=== PATIENT | female | born 1955 | race Caucasian/White ===

== ENCOUNTER → 2024-08-10 | Outpatient (BNVA) | payer MEDICARE, MEDICAID, SELFPAY | END | disposition home or self-care (01) | PROVIDERS: PCP Family Medicine; Referring Provider Family Medicine; Visit Provider Urology | DX: N31.9 Neuromuscular dysfunction of bladder, unspecified (principal); Q90.9 Down syndrome, unspecified; Z99.3 Dependence on wheelchair; Z87.440 Personal history of urinary (tract) infections; E78.00 Pure hypercholesterolemia, unspecified | CPT/HCPCS: 99212; G0463 ==

== ENCOUNTER 2025-03-12 15:38 | Inpatient (IN) | payer MEDICARE, MEDICAID, SELFPAY ==
[2025-03-12 15:39] VITALS: BP 126/64; PULSE 80; RESP 17; TEMP 37.5; O2SAT 92
[2025-03-12 15:55] VITALS: BMI 18.8
--- NOTE | 2025-03-12 15:55 | PC.NURSE ---
SENT FROM RESIDENTIAL HALF-WAY DUE TO BEING MORE LETHARGIC THAN NORMAL TODAY AND ON DAY 5 OF UTI TREATMENT
[2025-03-12 18:15] VITALS: BP 97/63; PULSE 74; RESP 18; TEMP 37.3; O2SAT 95
--- NOTE | 2025-03-12 18:22 | XR_ITS ---
Examination: AP chest single view Technique 1 portable sitting AP chest single view Date and time: March 12, 2025 1837 hours Comparison March 16, 2024 INDICATIONS: Chest pain today. FINDINGS: Pneumonia left mid and lower lung zone Normal heart size Ectatic thoracic aorta Prominent osteopenia IMPRESSION: Left mid and lower lung zone pneumonia
--- NOTE | 2025-03-12 18:22 | EKG_ITS ---
[facility] Test Date: 2025-03-12 Pat Name: DYLAN PRICE Department: Room: - Gender: Female Humanities Coordinator: : 1955 Requested By: Beba Serrano Order Number: [id number] Reading MD: Beba Serrano Measurements Intervals [place] Rate: 74 P: 35 FL: 128 QRS: 33 QRSD: 82 T: 30 QT: 393 QTc: 437 Interpretive Statements SINUS RHYTHM Compared to ECG 03/14/2024 16:22:47 Sinus bradycardia no longer present /store/S0/[id number].pdf
--- NOTE | 2025-03-12 18:53 | PD.EDADULT ---
ED General RME/HPI General Chief complaint: General Adult/Misc Complain Stated complaint: LOW BLOOD PRESSURE Time Seen by Provider: 03/12/25 18:21 Arrival date/time: 03/12/25 15:38 RME / HPI RME / HPI narrative: Dr. Hayes?s Main ED Evaluation: 69yo female with a history of Down syndrome, asthma, hypothyroidism, seizures [facility] presents to the ED for a chief complaint of low blood pressure. Caregiver states the patient has been on Cipro for a UTI for the last 5 days, reporting the patient started being more lethargic than normal today. They reported an associated cough. They noted her blood pressure to be low, so they called 911 to bring her in for evaluation. Caregiver denies any fever, chills, vomiting or any other associated symptoms. NKA. Related Data Home Medications ?Medication ?Instructions ?Recorded ?Confirmed aspirin 81 mg chewable tablet 81 mg PO DAILY Elevated Lipids 09/23/23 08/10/24 calcium 600 mg (as 1 tab PO BID 09/23/23 08/10/24 carbonate)-vitamin D3 10 mcg (400 unit) tablet docusate sodium 100 mg capsule 100 mg PO BID Constipation 09/23/23 08/10/24 levothyroxine 75 mcg tablet 75 mcg PO DAILY 09/23/23 08/10/24 loratadine 10 mg tablet 10 mg PO DAILY 09/23/23 08/10/24 montelukast 10 mg tablet 10 mg PO DAILY 09/23/23 08/10/24 quetiapine 100 mg tablet 100 mg PO HS 09/23/23 08/10/24 simvastatin 20 mg tablet 20 mg PO QPM 09/23/23 08/10/24 cenobamate 50 mg tablet (Xcopri) 50 mg PO QDAY 12/04/23 08/10/24 cranberry extract 500 mg capsule 500 mg PO QDAY 12/04/23 08/10/24 (Cranberry Concentrate) levetiracetam 500 mg 2,000 mg PO QDAY 03/14/24 08/10/24 tablet,extended release 24 hr (Keppra XR) methenamine hippurate 1 gram 1 g PO QDAY 08/10/24 08/10/24 tablet (Hiprex) Allergies Allergy/AdvReac Type Severity Reaction Status Date / Time No Known Allergies Allergy Unverified 03/12/25 16:06 Review of Systems Review of Systems Systems Reviewed: All systems reviewed, normal except as documented ED Exam Narrative Physical exam: GENERAL APPEARANCE: awake, alert, is drooling, well-developed, well-nourished, no acute distress VITALS: All vitals were reviewed and the pulse ox is 95% on 2L/NC, which is abnormal according to my interpretation. HEENT: Normocephalic, atraumatic; pupils equal, round, reactive to light; EOMI; mucous membranes pink, moist; oropharynx clear NECK: Supple LUNGS: CTABL; no wheezes, no rales, no rhonchi HEART: Regular rate, regular rhythm; normal S1, S2; no murmurs ABDOMEN: non distended; normal BS; soft, no tenderness, no guarding, no rebound; no masses, no organomegaly, no hernia BACK: no CVA tenderness EXTREMITIES: atraumatic; no edema NEUROLOGIC: awake; alert; cranial nerves II-XII grossly intact; no focal sensory or motor deficits PSYCHIATRIC: appropriate mood and affect SKIN: warm, dry, normal color; no rashes Course Course Course Narrative: CXR is ordered for determining the etiology of lethargy. Quality Measures none Orders Category Date Time Status Magnetic Doctor NOW Care 03/12/25 18:22 Active EKG (ED ONLY) *Do not use* NOW Care 03/12/25 18:22 Completed EKG (ED Only) Stat Exams 03/12/25 18:22 Draft XR chest 1V portable Stat Exams 03/12/25 18:22 Completed B-Type Natriuretic Peptide Stat Lab 03/12/25 20:24 Completed Blood Culture (Lab) Stat Lab 03/12/25 20:24 Received CBC Stat Lab 03/12/25 20:24 Completed Comprehensive Metabolic Panel Stat Lab 03/12/25 20:24 Completed Lactate (Lactic Acid) Stat Lab 03/12/25 20:24 Completed Lactic Acid, 3 HR Stat Lab 03/12/25 23:29 Ordered Lipase Stat Lab 03/12/25 20:24 Completed Magnesium Stat Lab 03/12/25 20:24 Completed Procalcitonin Stat Lab 03/12/25 20:24 Completed Troponin I Stat Lab 03/12/25 20:24 Completed UA, C/S IF [Urinalysis, C/S if Indicated] Stat Lab 03/12/25 20:23 Completed Urine Culture Stat Lab 03/12/25 20:23 Received cefTRIAXone/D5w 1gm IV premix [Rocephin/D5w 1gm IV Med 03/12/25 21:15 Discontinued premix] 1 g in 50 ml IV X1 Vital Signs Vital signs: Vital Signs Temperature 99.5 F 03/12/25 15:39 Pulse Rate 80 03/12/25 15:39 Respiratory Rate 17 03/12/25 15:39 Blood Pressure 126/64 03/12/25 15:39 Pulse Oximetry (%) 92 L 03/12/25 15:39 Oxygen Delivery Method Room Air 03/12/25 15:39 Discharge Plan Plan Patient Disposition: Admit Acute Care w/in Hospital Prescriptions/Referrals Prescriptions/Med Rec: No Action methenamine hippurate [Hiprex] 1 gram tablet 1 g PO QDAY quetiapine 100 mg tablet 100 mg PO HS levothyroxine 75 mcg tablet 75 mcg PO DAILY simvastatin 20 mg tablet 20 mg PO QPM docusate sodium 100 mg capsule 100 mg PO BID aspirin 81 mg tablet,chewable 81 mg PO DAILY montelukast 10 mg tablet 10 mg PO DAILY loratadine 10 mg tablet 10 mg PO DAILY calcium carbonate-vitamin D3 600 mg-10 mcg (400 unit) tablet 1 tab PO BID levetiracetam [Keppra XR] 500 mg Tablet Extended Release 24 Hr 2,000 mg PO QDAY cranberry extract [Cranberry Concentrate] 500 mg Capsule 500 mg PO QDAY Rx Instructions: administer with meals Xcopri 50 mg tablet 50 mg PO QDAY Referrals: No Primary/Family,Physician [Primary Care Provider] - In 1 week Problem List Clinical Impression: Pneumonia Patient/Caregiver Discharge Instructions Print Language: Kinyarwanda Stand Alone Forms: Laurie Award Info., Patient Portal Info Letter MDM Narrative MDM hospital course: Scribe Attestation: 03/12/25 - Kanika Marshall am scribing for and in the presence of Dr. Hayes. 2238: Patient's oxygen saturation is 88% with a good waveform. 2L/NC placed. Will consult an admission to the hospitalist, as the patient is normally not on oxygen at home. 2338: Discussed case with the resident physician, attending Dr. Fernández from Hospitalist service regarding admission. Discussed patients ED course, exam findings, labs, and radiology results. The Hospitalist agrees to accept the patient for admission. Clinical Information Provided by other: Information provided by the patient's caregiver Medical Records Reviewed [facility] (Per chart review, patient was admitted here on 03/14/24 for accidental overdose.) Meds/Rx Considered, not Ordered None Labs/Rad/Tests considered, not Ordered None Chronic Illness/Social Conditions Add or document further as needed: History of asthma, hypothyroidism, seizures, Down syndrome EKG EKG Interpretation narrative: EKG done at 1846, NSR, rate of 74, normal axis, normal intervals, no acute ST-T changes, according to my interpretation. Lab Interpretation Labs: interpreted by md Lab(s) interpretation(s): WBC 17.3, Lactic Acid 2.6, CMP normal, Troponin normal, BNP normal, Procalcitonin normal. Imaging Imaging interpretation: interpreted by md Radiology reports / interpretation(s): [facility] Report Signed Patient: DYLAN PRICE. Record#: [id number] Birthdate: 1955 Age/Sex: 69 / F Location: [facility] Attending Dr: Ordering Physician: Beba Hayes MD Date of Service: 03/12/25 Procedure(s): XR chest 1V portable Accession Number(s): [id number] cc: Jose Manuel Croft MD; NO PRIMARY/FAMILY,PHYSICIAN; Beba Hayes MD~ Examination: AP chest single view Technique 1 portable sitting AP chest single view Date and time: March 12, 2025 1837 hours Comparison March 16, 2024 INDICATIONS: Chest pain today. FINDINGS: Pneumonia left mid and lower lung zone Normal heart size Ectatic thoracic aorta Prominent osteopenia IMPRESSION: Left mid and lower lung zone pneumonia Dictated By: Jose Manuel Croft MD Signed By: <Electronically signed by Jose Manuel Croft MD in OV> 03/12/25 1852 Medication Administration(s) Medication Administration History Discontinued Medications Ceftriaxone Sodium/Dextrose (Rocephin/D5w 1gm Iv Premix) 1 g in 50 mls @ 100 mls/hr IV X1 ONE Stop: 03/12/25 21:44 Last Infusion: 03/12/25 22:23 Dose: Infused Documented By: Admin: 03/12/25 21:22 Dose: 100 mls/hr Documented By: CB see above Diagnosis Differential diagnosis: bronchitis, pneumonia, PE, pneumothorax Most likely dx, and/or detailed dx discussion: pneumonia Dispositon Disposition: Admit
[2025-03-12 19:15] VITALS: PULSE 76
[2025-03-12 20:33] LABS: Lactate (Lactic Acid) 2.6 mMol/L (0.4-2.0)
[2025-03-12 20:33] LABS: Collection Type, Urine Catheter
[2025-03-12 20:39] LABS: Basophils # (Auto) 0.1 Thou/mm3 (0.0-0.2); Basophils % (Auto) 1 % (0-2.5); Eosinophils % (Auto) 0 % (0-10); Hematocrit 41.8 % (36.0-46.0); Hemoglobin 15.2 g/dL (12.0-16.0); Immature Granulocytes % (Auto) 1 % (0-0); Immature Granulocytes Auto 0.09 Thou/mm3 (0.00-0.00); Lymphocytes # (Auto) 2.2 Thou/mm3 (1.0-4.8); Lymphocytes % (Auto) 12 % (10-50); Mean Corpuscular HGB Conc 36.4 g/dl (31.0-37.0); Mean Corpuscular Volume 91 fL (80-100); Monocytes # (Auto) 1.1 Thou/mm3 (0.0-0.8); Monocytes % (Auto) 6 % (0-12); Neutrophils # (Auto) 13.9 Thou/mm3 (1.8-7.7); Neutrophils % (Auto) 80 % (37-80); Nucleated Red Blood Cell % 0 /100 WBC (0); Platelet Count 250 Thou/mm3 (140-440); Red Blood Count 4.61 Miln/mm3 (4.00-5.20); White Blood Count 17.3 Thou/mm3 (3.6-11.0)
[2025-03-12 20:56] LABS: Bacteria,Urine Rare; Bilirubin,Urine Negative (Negative); Blood,Urine Negative (Negative); Clarity,Urine Clear (Clear/Hazy); Color,Urine Lt-Yellow (Lt Yel-Yel); Culture Indicated,Urine Not Indicated; Glucose, Urine Negative (Negative); Ketones,Urine Negative (Negative); Leukocyte Esterase,Urine Negative (Negative); Nitrite,Urine Negative (Negative); Protein,Urine Negative (Neg - Trace); RBC,Urine 1 /hpf (0-3); Specific Gravity,Urine 1.011 (1.001-1.035); Squamous Epithelial Cell,Urine < 1 /hpf (0-5); Urobilinogen,Urine Negative mg/dL (0.0-1.0); WBC,Urine 6 /hpf (0-5)
[2025-03-12 21:12] LABS: B-Type Natriuretic Peptide 89 pg/mL (0-100)
[2025-03-12 21:17] LABS: Alanine Aminotransferase 18 U/L (10-49); Albumin, Serum 3.8 gm/dL (3.4-4.8); Albumin/Globulin Ratio 1.5 (1.2-2.2); Alkaline Phosphatase 145 U/L (46-116); Anion Gap 11 (7-16); BUN/Creatinine Ratio 12 Ratio (12-20); Bilirubin,Total 0.3 mg/dL (0.3-1.2); Blood Urea Nitrogen 12 mg/dL (9-23); Calcium 8.4 mg/dL (8.3-10.6); Calcium (Corrected) 8.6 mg/dL (8.5-10.1); Carbon Dioxide 26.8 mMol/L (20.0-31.0); Chloride 98 mMol/L (98-107); Estimated Creatinine Clearance 39.1 mL/min (>60); Globulin 2.6 gm/dL (2.3-3.5); Glucose 133 mg/dL (74-106); Lipase 25 U/L (12-53); Magnesium 1.9 mg/dL (1.6-2.6); Osmolality,Calculated 273 (275-295); Potassium 4.1 mMol/L (3.4-5.1); Procalcitonin 0.14 ng/ml (0.0-0.49); Sodium 136 mMol/L (136-145); Total Protein 6.4 gm/dL (5.7-8.2); Troponin I < 0.020 ng/mL (0.0-0.045); eGFR > 60 See Note
[2025-03-12] MEDS: cefTRIAXone/D5w 1gm IV premix 1 G/50 ML BAG IV (21:22)
[2025-03-12 23:29] LABS: Reflex Lactate? Y
[2025-03-12 23:31] VITALS: BP 89/50; PULSE 79; RESP 18; TEMP 36.9; O2SAT 88
[2025-03-13] VITALS (14 sets, daily range): BP systolic 100–137; BP diastolic 57–92; PULSE 61–96; RESP 13–20; TEMP 36–36.8; O2SAT 92–100; BMI 19.2
--- NOTE | 2025-03-13 00:16 | ESHP_ITS ---
<Statement entered by Norma Fernández MD - 03/23/25 14:58> I reviewed above note and agree with findings and plans. I have also personally examined the patient with medicine team and went over assessment and plan with medical team including real estate intern and resident physician. Documentation for date of: 03/13/25 HPI History of Present Illness Chief complaint: phlegm, chills, low O2 History of present illness: 69-year-old female with past medical history of Down syndrome, asthma, hypothyroidism, and seizure disorder was admitted to the hospital on 03/13/2025 after come to the ED with complaints of lethargy, phlegm production, chills, and low O2. Patient comes from a detention. Patient was nonverbal on assessment therefore most of the history was taken from chart review and detention barback was also contacted to provide more history. halfway barback/caregiver stated that patient has been having some phlegm which did not have any blood, having chills, and that the highest temperature recorded was 99.5. He also stated that recently patient had a UTI and was treated with antibiotics. He stated that he decided to take the patient to the ER as her blood pressure was kind low and her O2 they could not measure it therefore he decided to bring the patient to the ER. He states that the patient at baseline his minimally verbal to some things and able to follow some commands. On my assessment patient was nonverbal and was not following commands. ED course: Initially came in afebrile and normotensive, but hypoxic. Initial labs showed leukocytosis, lactic acidosis, and UA showed bacteria. Initial imaging included EKG which showed sinus rhythm. Chest x-ray that shows some left mid and lower lobe pneumonia. PMH: As above Review of Systems Review of Systems ROS Unobtainable: unobtainable due to medical condition Past Medical History Past Medical History NEUROLOGIC: Positive Neurological Disorders and Seizures CARDIAC: Positive Hypercholesterolemia RESPIRATORY: Positive Asthma (has covid) ENDOCRINE: Positive Hyperthyroidism and Hypothyroidism OTHER HISTORY: Positive Hospitalization and Down Syndrome Family History FAMILY HISTORY: Negative Family Cardiac Disorders Surgical History SURGICAL: Negative Cardiac Surgery, Endocrine Surgery, Ear Surgery, Abdominal Surgery, Nephrectomy, Joint Replacement, Mastectomy or Vasectomy Social History SOCIAL: None SMOKING STATUS: Never smoker Exam Vital Signs Temp Pulse Resp BP Pulse Ox O2 Del Method O2 Flow Rate 98.5 F 79 18 89/50 L 88 L Room Air 2 03/12/25 23:31 03/12/25 23:31 03/12/25 23:31 03/12/25 23:31 03/12/25 23:31 03/12/25 23:31 03/12/25 18:15 Narrative Exam General: AO x 0, nonverbal, ill-appearing Eyes: PERRL, EOMI. Anicteric, vision grossly intact. Ears: No visible ear discharge, Hearing grossly intact. Nose: No visible nasal discharge. Mouth/Throat: Moist mucous membranes, no redness, no lesions. Neck: Neck supple, non-tender, no cervical lymphadenopathy. Lungs: Rhonchi bilaterally with upper airway congestion appreciated. Cardio: Normal S1/S2, regular rhythm, no murmurs, no JVD Abdomen: Soft, non-tender, no palpable masses, peristalsis present, no guarding or rebound. Extremities: Symmetrical, no significant deformities, no peripheral edema , non-tender, peripheral pulses presents. Some mild discoloration of upper extremity digits and lower extremity toes Skin: No rashes, no lesions, warm to touch. Neuro: Not able to follow commands and nonverbal, was moving all extremities Results: Labs 03/12/25 20:24 03/12/25 20:24 Labs: Short CBC 03/12/25 Range/Units 20:24 WBC 17.3 H (3.6-11.0) Thou/mm3 Hgb 15.2 (12.0-16.0) g/dL Hct 41.8 (36.0-46.0) % Plt Count 250 (140-440) Thou/mm3 BMP 03/12/25 20:24 Sodium 136 Potassium 4.1 Chloride 98 Carbon Dioxide 26.8 BUN 12 Creatinine 1.0 Glucose 133 H Calcium 8.4 Cardiac Enzymes 03/12/25 Range/Units 20:24 Troponin I < 0.020 (0.0-0.045) ng/mL Liver Function 03/12/25 Range/Units 20:24 Total Bilirubin 0.3 (0.3-1.2) mg/dL ALT 18 (10-49) U/L Alkaline Phosphatase 145 H (46-116) U/L Albumin 3.8 (3.4-4.8) gm/dL Urine 03/12/25 Range/Units 20:23 Urine Color Lt-Yellow (Lt Yel-Yel) Urine Clarity Clear (Clear/Hazy) Urine pH 6.0 (5.0-7.0) Ur Specific [place] 1.011 (1.001-1.035) Urine Protein Negative (Neg - Trace) Urine Glucose (UA) Negative (Negative) Quality Measures Quality Measures none Advance care planning discussed with:: patient and other (detention barback/caregiver) Medications Home Medications and Allergies Home Medications ?Medication ?Instructions ?Recorded ?Confirmed ?Type aspirin 81 mg chewable tablet 81 mg PO DAILY Elevated Lipids 09/23/23 08/10/24 History calcium 600 mg (as 1 tab PO BID 09/23/23 History carbonate)-vitamin D3 10 mcg (400 unit) tablet docusate sodium 100 mg capsule 100 mg PO BID Constipat ion 09/23/23 08/10/24 History levothyroxine 75 mcg tablet 75 mcg PO DAILY 09/23/23 1 10/10/23 History loratadine 10 mg tablet 10 mg PO DAILY 09/23/2304/26 History montelukast 10 mg tablet 10 mg PO DAILY 09/23/2304/26 History quetiapine 100 mg tablet 100 mg PO HS 09/23/23 History simvastatin 20 mg tablet 20 mg PO QPM 09/23/23 History cenobamate 50 mg tablet (Xcopri) 50 mg PO QDAY 4 08/10/24 History cranberry extract 500 mg capsule 500 mg PO QDAY 08/10/24 History (Cranberry Concentrate) levetiracetam 500 mg 2,000 mg PO QDAY 03/14/24 History tablet,extended release 24 hr (Keppra XR) methenamine hippurate 1 gram 1 g PO QDAY 08/10/2404/26 History tablet (Hiprex) Allergies Allergy/AdvReac Type Severity Reaction Status Date / Time No Known Allergies Allergy Unverified 03/12/25 16:06 Visit Medications Acetaminophen (Acetaminophen 325 Mg Tablet) 650 mg PO Q6H PRN PRN Reason: pain and Fever >100.4 Stop: 04/12/25 00:08 Albuterol/Ipratropium (Albuterol/Ipratropium (Duoneb) Rt [place] 3 Ml Nebu) 3 ml INH Q6HRRT JERRY Stop: 04/12/25 00:59 Heparin Sodium (Porcine) (Heparin Sod Inj 5000 Unit/Ml Vial) 5,000 unit SC Q8HR JERRY Stop: 03/27/25 05:59 Azithromycin 500 mg/ Sodium (Chloride) 250 mls @ 250 mls/hr IV QDAY JERRY Stop: 03/20/25 00:12 Ceftriaxone Sodium 1 gm/ (Sodium Chloride) 50 mls @ 100 mls/hr IV QDAY JERRY Stop: 03/20/25 08:59 Sodium Chloride (Ns) 1,000 mls @ 999 mls/hr IV .Q1H1M ONE Stop: 03/13/25 01:15 Ondansetron HCl (Ondansetron Inj 2 Mg/Ml Inj 2 Ml) 4 mg IVP Q6H PRN; Protocol PRN Reason: NAUSEA OR VOMITING Stop: 04/12/25 00:08 Sodium Chloride (Sodium Chloride Rt 10% 15 Ml Nebu) 5 ml INH X1 ONE Stop: 03/13/25 00:10 Discontinued Medications Ceftriaxone Sodium/Dextrose (Rocephin/D5w 1gm Iv Premix) 1 g in 50 mls @ 100 mls/hr IV X1 ONE Stop: 03/12/25 21:44 Last Infusion: 03/12/25 22:23 Dose: Infused Assessment & Plan Plan 69-year-old female with past medical history of Down syndrome, asthma, hypothyroidism, and seizure disorder was admitted to the hospital on 03/13/2025 for acute cephalopathy and acute hypoxic respiratory failure likely secondary to community-acquired pneumonia. #Acute encephalopathy #Acute hypoxic respiratory failure #Community-acquired pneumonia #Lactic acidosis #Hx of asthma Patient came in from detention and barback/caregiver stated that she has been having some phlegm and chills recently and that today they could not get a O2 reading on her as she has been more lethargic. Chest x-ray that showed left pneumonia WBC 17.3 Procalcitonin negative Lactic acid 2.6 and down trended to 1.6 No wheezing on auscultation Plan: Azithromycin and Rocephin (03/13/2025?) Sputum cultures and blood cultures ordered Bedside COVID and influenza ordered RSV ordered DuoNebs ordered O2 as needed Will continue to monitor Chronic diseases: #Down syndrome #Hypothyroidism #Seizures Seizures precautions ordered TSH ordered for morning labs Will restart medications once med reconciliation is done. Disposition: Patient admitted [facility], Abx for CAP. Diet: NPO GI prophylaxis: not indicated DVT prophylaxis: heparin sub cu Code: Full Case disclosed with Attending Dr. Jolene Aguirre PGY1 Disclaimer: Even though this this note was dictated by speech recognition and even though it was carefully revised there may still be minor errors in oysterman due to voice recognition software.
[2025-03-13 00:36] LABS: Lactic Acid, 3 HR 1.6 mMol/L (0.4-2.0)
[2025-03-13] MEDS: SODIUM CHLORIDE 0.9% 1000 ML 1,000 ML 999 ML IV (00:39)
[2025-03-13] MEDS: AZITHROMYCIN INJ 500 MG in SODIUM CHLORIDE 0.9% 250 ML 250 ML 250 MG IV ×2 (00:40→21:13)
[2025-03-13] MEDS: ALBUTEROL/IPRATROPIUM (Duoneb) RT SOL 3 ML NEBU INH ×4 (01:13→19:17)
[2025-03-13] MEDS: SODIUM CHLORIDE RT 10% 15 ML NEBU 5 ML INH (01:22)
[2025-03-13 05:02] LABS: Basophils # (Auto) 0.1 Thou/mm3 (0.0-0.2); Basophils % (Auto) 0 % (0-2.5); Eosinophils % (Auto) 0 % (0-10); Hematocrit 39.6 % (36.0-46.0); Hemoglobin 14.2 g/dL (12.0-16.0); Immature Granulocytes % (Auto) 1 % (0-0); Immature Granulocytes Auto 0.09 Thou/mm3 (0.00-0.00); Lymphocytes # (Auto) 1.7 Thou/mm3 (1.0-4.8); Lymphocytes % (Auto) 11 % (10-50); Mean Corpuscular HGB Conc 35.9 g/dl (31.0-37.0); Mean Corpuscular Hemoglobin 32.6 pg (25.0-35.0); Mean Corpuscular Volume 91 fL (80-100); Monocytes # (Auto) 0.7 Thou/mm3 (0.0-0.8); Monocytes % (Auto) 5 % (0-12); Neutrophils # (Auto) 13.3 Thou/mm3 (1.8-7.7); Neutrophils % (Auto) 84 % (37-80); Nucleated Red Blood Cell % 0 /100 WBC (0); Platelet Count 235 Thou/mm3 (140-440); RDW Standard Deviation 40.7 fL (36.4-46.3); Red Blood Count 4.35 Miln/mm3 (4.00-5.20); White Blood Count 15.9 Thou/mm3 (3.6-11.0)
[2025-03-13 05:28] LABS: Alanine Aminotransferase 15 U/L (10-49); Albumin, Serum 3.4 gm/dL (3.4-4.8); Albumin/Globulin Ratio 1.4 (1.2-2.2); Alkaline Phosphatase 127 U/L (46-116); Anion Gap 10 (7-16); BUN/Creatinine Ratio 11 Ratio (12-20); Bilirubin,Total 0.3 mg/dL (0.3-1.2); Blood Urea Nitrogen 9 mg/dL (9-23); Calcium 7.9 mg/dL (8.3-10.6); Calcium (Corrected) 8.4 mg/dL (8.5-10.1); Carbon Dioxide 27.7 mMol/L (20.0-31.0); Cardiac Risk Estimate 2.1 RATIO (3.7-5.6); Chloride 106 mMol/L (98-107); Cholesterol 126 mg/dL (132-200); Creatinine (Component) 0.8 mg/dL (0.6-1.3); Estimated Creatinine Clearance 49.6 mL/min (>60); Globulin 2.4 gm/dL (2.3-3.5); Glucose 120 mg/dL (74-106); HDL Cholesterol 59 mg/dL (40-60); LDL Cholesterol,Calculated 57 mg/dL (0-130); Magnesium 1.8 mg/dL (1.6-2.6); Osmolality,Calculated 286 (275-295); Potassium 3.9 mMol/L (3.4-5.1); Sodium 144 mMol/L (136-145); Thyroid Stimulating Hormone 1.33 uIU/mL (0.55-4.78); Total Protein 5.8 gm/dL (5.7-8.2); Triglycerides 49 mg/dL (30-150); eGFR > 60 See Note
[2025-03-13] MEDS: HEPARIN SOD INJ 5000 UNIT/ML VIAL SC ×3 (05:29→21:13)
[2025-03-13 05:34] LABS: Respiratory Syncytial Virus Ag Negative (Negative)
[2025-03-13] MEDS: CALCIUM CARBONATE 600 MG TABLET PO ×2 (09:09→20:06)
[2025-03-13] MEDS: DOCUSATE SOD 100 MG CAPSULE PO ×2 (09:09→20:07)
[2025-03-13] MEDS: LEVOTHYROXINE SODIUM 25 MCG TABLET 75 MCG PO (09:09)
[2025-03-13] MEDS: POLYETHYLENE GLYCOL 17 GM PACKET PO (09:09)
[2025-03-13] MEDS: levETIRAcetam 250 MG TABLET 1000 MG PO (09:10)
[2025-03-13] MEDS: CHOLECALCIFEROL (Vitamin D3) 400 IU TABLET PO ×2 (09:10→20:07)
--- NOTE | 2025-03-13 12:34 | PC.SS ---
Lillie Jensen is a 69 year old female admitted to [place] for AHRF< CAP. SS conducted over the phone contact with Guardian of Handicapped Manjinder Camahco [phone], as pt is Developmentally Delayed. Manjinder reports pt Is a resident of [facility]. Manjinder confirmed pt aligned with [facility], Neda Do [phone] is her care worker. Pt requires full assistance with ADLs. Pt is primarily wheelchair bund but can walk with assistance and a walker. Pharmacy of choice is [facility] on [address] in [place]. Manjinder reports they will provide transport at the time of DC, no matter the time of day. Pt PCP is Dr. Rosas. No further needs identified. SS will remain available for any additional needs. DC plan: [facility] DM: [facility] PCP: Alison Morrison
--- NOTE | 2025-03-13 14:42 | ESPR_ITS ---
<Statement entered by Stan Chavira MD - 03/14/25 00:13> Patient is a 69-year-old female with significant medical history for Down syndrome who was admitted overnight for acute encephalopathy secondary to UTI and pneumonia. Morning labs significant for downtrending of WBC, preliminary blood cultures 2 out of 2 grew GPC and patient was started on vancomycin. Repeat blood cultures were ordered, will consider TTE. I discussed with and supervised the procurement intern physician involved in the care of this patient. Patient assessment and plan was discussed with entire medicine team, including my attending. I agree with the assessment and plan as documented by procurement intern doctor. Patient care was discussed with my attending physician Dr. Sara Chavira, PGY-2 Documentation for date of: 03/13/25 Subjective Subjective Interval history: Patient is seen and examined at bedside Patient was admitted overnight in view of pneumonia. Patient has Down syndrome and cannot communicate Vitals are stable and patient is saturating around 95% on room air Labs showed WBC 15.9 Preliminary blood culture showed GPC for which patient was started on vancomycin Repeat blood cultures are sent today Exam Vital Signs Temp Pulse Resp BP Pulse Ox O2 Del Method O2 Flow Rate 98.3 F 89 18 100/62 98 Nasal Cannula 2 03/13/25 12:00 03/13/25 14:04 03/13/25 14:04 03/13/25 12:00 03/13/25 14:04 03/13/25 12:00 03/13/25 14:04 Narrative Exam General: Awake. HEENT: Normocephalic, atraumatic, mucous membranes moist. Heart: Regular rate and rhythm, no murmurs. Lungs: Clear to auscultation with no wheezing or crackles. Abdomen: Soft, nondistended, nontender, positive bowel sounds. ?No guarding or rebound tenderness. Neurologic: Alert and oriented x3, no gross neurological deficit, and patient able to move all 4 extremities. Extremities: No edema. Skin: No rash or ecchymoses. Objective Labs 03/14/25 05:18 03/14/25 05:18 Labs: Laboratory Results - last 24 hr 03/12/25 03/12/25 03/13/25 20:23 20:24 00:28 WBC 17.3 H RBC 4.61 Hgb 15.2 Hct 41.8 MCV 91 MCH 33.0 MCHC 36.4 RDW Std Deviation 40.0 Plt Count 250 Neut % (Auto) 80 Lymph % (Auto) 12 [place] % (Auto) 6 Eos % (Auto) 0 Baso % (Auto) 1 Neut # (Auto) 13.9 H Lymph # (Auto) 2.2 [place] # (Auto) 1.1 H Eos # (Auto) 0.0 Baso # (Auto) 0.1 Immature Gran # (Auto) 0.09 H Absolute Nucleated RBC 0.00 Immature Gran % 1 H Nucleated RBC % 0 Sodium 136 Potassium 4.1 Chloride 98 Carbon Dioxide 26.8 Anion Gap 11 BUN 12 Creatinine 1.0 Estim Creat Clear Calc 39.1 L eGFR > 60 BUN/Creatinine Ratio 12 Glucose 133 H Calculated Osmolality 273 L Lactic Acid 2.6 H 1.6 Calcium 8.4 Corrected Calcium 8.6 Magnesium 1.9 Total Bilirubin 0.3 ALT 18 Alkaline Phosphatase 145 H Troponin I < 0.020 B-Natriuretic Peptide 89 Total Protein 6.4 Albumin 3.8 Globulin 2.6 Albumin/Globulin Ratio 1.5 Triglycerides Cholesterol LDL Cholesterol, Calc HDL Cholesterol Cholesterol/HDL Ratio Lipase 25 Procalcitonin 0.14 TSH Ur Collection Type Catheter Urine Color Lt-Yellow Urine Clarity Clear Urine pH 6.0 Ur Specific [place] 1.011 Urine Protein Negative Urine Glucose (UA) Negative Urine Ketones Negative Urine Blood Negative Urine Nitrite Negative Urine Bilirubin Negative Urine Urobilinogen (Auto) Negative Ur Leukocyte Esterase Negative Urine RBC 1 Urine WBC 6 H Ur Squamous Epith Cells < 1 Urine Bacteria Rare Ur Culture Indicated? Not Indicated RSV Rapid 03/13/25 03/13/25 04:15 04:25 WBC 15.9 H RBC 4.35 Hgb 14.2 Hct 39.6 MCV 91 MCH 32.6 MCHC 35.9 RDW Std Deviation 40.7 Plt Count 235 Neut % (Auto) 84 H Lymph % (Auto) 11 [place] % (Auto) 5 Eos % (Auto) 0 Baso % (Auto) 0 Neut # (Auto) 13.3 H Lymph # (Auto) 1.7 [place] # (Auto) 0.7 Eos # (Auto) 0.0 Baso # (Auto) 0.1 Immature Gran # (Auto) 0.09 H Absolute Nucleated RBC 0.00 Immature Gran % 1 H Nucleated RBC % 0 Sodium 144 Potassium 3.9 Chloride 106 Carbon Dioxide 27.7 Anion Gap 10 BUN 9 Creatinine 0.8 Estim Creat Clear Calc 49.6 L eGFR > 60 BUN/Creatinine Ratio 11 L Glucose 120 H Calculated Osmolality 286 Lactic Acid Calcium 7.9 L Corrected Calcium 8.4 L Magnesium 1.8 Total Bilirubin 0.3 ALT 15 Alkaline Phosphatase 127 H Troponin I B-Natriuretic Peptide Total Protein 5.8 Albumin 3.4 Globulin 2.4 Albumin/Globulin Ratio 1.4 Triglycerides 49 Cholesterol 126 L LDL Cholesterol, Calc 57 HDL Cholesterol 59 Cholesterol/HDL Ratio 2.1 L Lipase Procalcitonin TSH 1.33 Ur Collection Type Urine Color Urine Clarity Urine pH Ur Specific [place] Urine Protein Urine Glucose (UA) Urine Ketones Urine Blood Urine Nitrite Urine Bilirubin Urine Urobilinogen (Auto) Ur Leukocyte Esterase Urine RBC Urine WBC Ur Squamous Epith Cells Urine Bacteria Ur Culture Indicated? RSV Rapid Negative Quality Measures Quality Measures none Advance care planning discussed with:: patient Assessment & Plan Assessment Current Active Medications: Generic Name Dose Route Start Last Admin Trade Name Freq PRN Reason Stop Dose Admin Acetaminophen 650 mg 03/13/25 00:09 Acetaminophen 325 Mg Tablet PO 04/12/25 00:08 Q6H PRN pain and Fever >100.4 Albuterol/Ipratropium 3 ml 03/13/25 01:00 03/13/25 13:59 Albuterol/Ipratropium (Duoneb) Rt [place] 3 Ml Nebu INH 04/12/25 00:59 3 ml Q6HRRT JERRY Administration Calcium Carbonate 600 mg 03/13/25 09:00 03/13/25 09:09 Calcium Carbonate 600 Mg Tablet PO 04/12/25 08:59 600 mg BID JERRY Administration Docusate Sodium 100 mg 03/13/25 09:00 03/13/25 09:09 Docusate Sod 100 Mg Capsule PO 04/12/25 08:59 100 mg BID JERRY Administration Protocol Heparin Sodium (Porcine) 5,000 unit 03/13/25 06:00 03/13/25 13:36 Heparin Sod Inj 5000 Unit/Ml Vial SC 03/27/25 05:59 5,000 unit Q8HR JERRY Administration Ceftriaxone Sodium/Dextrose 1 gm in 50 mls @ 100 mls/hr 03/13/25 21:00 Rocephin/D5w 1gm Iv Premix IV 03/20/25 20:59 HS JERRY Azithromycin 500 mg/ Sodium 250 mls @ 250 mls/hr 03/13/25 21:00 Chloride IV 03/20/25 20:59 HS JERRY Levetiracetam 1,000 mg 03/13/25 09:00 03/13/25 09:10 Levetiracetam 250 Mg Tablet PO 04/12/25 08:59 1,000 mg QDAY JERRY Administration Levetiracetam 1,500 mg 03/13/25 21:00 Levetiracetam 250 Mg Tablet PO 04/12/25 20:59 HS JERRY Levothyroxine Sodium 75 mcg 03/13/25 09:00 03/13/25 09:09 Levothyroxine Sodium 25 Mcg Tablet PO 04/12/25 08:59 75 mcg ACBR JERRY Administration Ondansetron HCl 4 mg 03/13/25 00:09 Ondansetron Inj 2 Mg/Ml Inj 2 Ml IVP 04/12/25 00:08 Q6H PRN NAUSEA OR VOMITING Protocol Polyethylene Glycol 17 gm 03/13/25 09:00 03/13/25 09:09 Polyethylene Glycol 17 Gm Packet PO 04/12/25 08:59 17 gm QDAY JERRY Administration Quetiapine Fumarate 100 mg 03/13/25 21:00 Quetiapine Fumarate 100 Mg Tablet PO 04/12/25 20:59 HS [facility] Vitamin D 400 iu 03/13/25 09:00 03/13/25 09:10 Cholecalciferol (Vitamin D3) 400 Iu Tablet PO 04/12/25 08:59 400 iu BID JERRY Administration Plan 69-year-old female with past medical history of Down syndrome, asthma, hypothyroidism, and seizure disorder was admitted to the hospital on 03/13/2025 for acute cephalopathy and acute hypoxic respiratory failure likely secondary to community-acquired pneumonia. 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 Chest x-ray that showed left pneumonia WBC 17.3 Procalcitonin negative Lactic acid 2.6 and down trended to 1.6 No wheezing on auscultation Tested negative for COVID, influenza and RSV Prelim blood cultures - Positive GPC Plan: Started on Vancomycin (03/13 - DuoNebs ordered O2 as needed Will continue to monitor Chronic diseases: #Down syndrome #Hypothyroidism #Seizures Seizures precautions ordered TSH ordered for morning labs Will restart medications once med reconciliation is done. Disposition: Patient admitted to [facility], Abx for CAP. Diet: Dysphagia 1 GI prophylaxis: not indicated DVT prophylaxis: heparin sub cu Code: Full Patient plan of care was discussed with the attending physician, Dr. Ruiz and senior resident Dr. Cait Farah, PGY1 Attending Provider Attestation/Addendum I, Jodie Ruiz, , attest that I was physically present for the torres portions of the service and evaluated the patient with the resident and I reviewed and discussed the case with the resident and agree with the resident's findings and plans of care as documented above Patient seen eval this a.m. No acute events overnight. Lungs are clear to auscultation bilaterally on exam. However, patient does have a mildly wet cough. She does not appear to have a strong cough reflex to expectorate her sputum. No family at bedside. Patient unable to follow commands, but will track with eyes. Patient has no acute distress. Will continue with antibiotics at this time. Due to positive blood cultures, will start on vancomycin and repeat blood cultures. If it remains persistent positive, will need echocardiogram to rule out endocarditis.
--- NOTE | 2025-03-13 14:47 | PC.SS ---
Rounding: One more day monitoring, DC to shelter possibly tomorrow
[2025-03-13] MEDS: VANCOMYCIN/NS 1 GM IVPB 200 ML IV (15:37)
[2025-03-13] MEDS: cefTRIAXone/D5w 1gm IV premix 1 GM/50 ML BAG IV (20:06)
[2025-03-13] MEDS: QUEtiapine FUMARATE 100 MG TABLET PO (20:07)
[2025-03-13] MEDS: levETIRAcetam 250 MG TABLET 1500 MG PO (20:08)
[2025-03-14] VITALS (11 sets, daily range): BP systolic 96–131; BP diastolic 51–89; PULSE 63–106; RESP 16–20; TEMP 36.1–37.6; O2SAT 92–100
[2025-03-14] MEDS: ALBUTEROL/IPRATROPIUM (Duoneb) RT SOL 3 ML NEBU INH ×4 (01:01→18:38)
[2025-03-14] MEDS: HEPARIN SOD INJ 5000 UNIT/ML VIAL SC ×3 (05:23→21:09)
[2025-03-14] MEDS: LEVOTHYROXINE SODIUM 25 MCG TABLET 75 MCG PO (05:23)
[2025-03-14 05:56] LABS: Basophils # (Auto) 0.1 Thou/mm3 (0.0-0.2); Basophils % (Auto) 1 % (0-2.5); Eosinophils # (Auto) 0.2 Thou/mm3 (0.0-0.5); Eosinophils % (Auto) 2 % (0-10); Immature Granulocytes % (Auto) 1 % (0-0); Immature Granulocytes Auto 0.15 Thou/mm3 (0.00-0.00); Lymphocytes # (Auto) 2.1 Thou/mm3 (1.0-4.8); Lymphocytes % (Auto) 18 % (10-50); Mean Corpuscular HGB Conc 34.9 g/dl (31.0-37.0); Mean Corpuscular Hemoglobin 32.8 pg (25.0-35.0); Mean Corpuscular Volume 94 fL (80-100); Monocytes # (Auto) 1.3 Thou/mm3 (0.0-0.8); Monocytes % (Auto) 12 % (0-12); Neutrophils # (Auto) 7.3 Thou/mm3 (1.8-7.7); Neutrophils % (Auto) 66 % (37-80); Nucleated Red Blood Cell % 0 /100 WBC (0); Platelet Count 190 Thou/mm3 (140-440); Red Blood Count 4.57 Miln/mm3 (4.00-5.20); White Blood Count 11.2 Thou/mm3 (3.6-11.0)
[2025-03-14 06:28] LABS: Alanine Aminotransferase 19 U/L (10-49); Albumin, Serum 3.6 gm/dL (3.4-4.8); Albumin/Globulin Ratio 1.4 (1.2-2.2); Alkaline Phosphatase 133 U/L (46-116); Anion Gap 12 (7-16); BUN/Creatinine Ratio 13 Ratio (12-20); Bilirubin,Total 0.2 mg/dL (0.3-1.2); Blood Urea Nitrogen 10 mg/dL (9-23); Calcium 8.6 mg/dL (8.3-10.6); Calcium (Corrected) 8.9 mg/dL (8.5-10.1); Carbon Dioxide 25.6 mMol/L (20.0-31.0); Chloride 106 mMol/L (98-107); Creatinine (Component) 0.8 mg/dL (0.6-1.3); Estimated Creatinine Clearance 49.6 mL/min (>60); Globulin 2.5 gm/dL (2.3-3.5); Glucose 92 mg/dL (74-106); Magnesium 1.7 mg/dL (1.6-2.6); Osmolality,Calculated 285 (275-295); Potassium 4.2 mMol/L (3.4-5.1); Sodium 144 mMol/L (136-145); Total Protein 6.1 gm/dL (5.7-8.2); eGFR > 60 See Note
[2025-03-14] MEDS: POLYETHYLENE GLYCOL 17 GM PACKET PO (08:27)
[2025-03-14] MEDS: CALCIUM CARBONATE 600 MG TABLET PO ×2 (08:28→20:09)
[2025-03-14] MEDS: CHOLECALCIFEROL (Vitamin D3) 400 IU TABLET PO ×2 (08:28→20:09)
[2025-03-14] MEDS: levETIRAcetam 250 MG TABLET 1000 MG PO (08:28)
[2025-03-14] MEDS: DOCUSATE SOD 100 MG CAPSULE PO ×2 (08:28→20:08)
[2025-03-14] MEDS: VANCOMYCIN/NS 750 MG IVPB 750 MG/150 ML BAG 60 MG IV (09:54)
[2025-03-14] MEDS: cefTRIAXone/D5w 1gm IV premix 1 GM/50 ML BAG IV (11:28)
--- NOTE | 2025-03-14 16:18 | ESPR_ITS ---
<Statement entered by Stan Chavira MD - 03/14/25 22:14> Patient had flushing and erythema after vancomycin administration, discontinued Vanco and started patient on Rocephin. Preliminary blood cultures have been GPC 2 out of 2, WBC downtrending, pending final blood cultures. I discussed with and supervised the market research intern physician involved in the care of this patient. Patient assessment and plan was discussed with entire medicine team, including my attending. I agree with the assessment and plan as documented by market research intern doctor. Patient care was discussed with my attending physician Dr. Sara Chavira, PGY-2 Documentation for date of: 03/14/25 Subjective Subjective Interval history: Patient is seen and examined at bedside Overnight, patient noted to have mild erythema at the site of vancomycin infusion This morning, patient again developed erythema and facial flushing after vancomycin infusion following which vancomycin is discontinued and patient was restarted on ceftriaxone Vitals are stable and patient is saturating well on room air On physical examination, lungs sounded clear Labs show WBC 11.2. Pending final blood cultures Exam Vital Signs Temp Pulse Resp BP Pulse Ox O2 Del Method O2 Flow Rate 99.6 F 86 20 128/76 100 Room Air 2 03/14/25 16:00 03/14/25 16:00 03/14/25 16:00 03/14/25 16:00 03/14/25 16:00 03/14/25 16:00 03/13/25 16:00 Narrative Exam General: Awake. noted alopecia HEENT: Normocephalic, atraumatic, mucous membranes moist. Heart: Regular rate and rhythm, no murmurs. Lungs: Clear to auscultation with no wheezing or crackles. Abdomen: Soft, nondistended, nontender, positive bowel sounds. ?No guarding or rebound tenderness. Neurologic: Alert and oriented x3, no gross neurological deficit, and patient able to move all 4 extremities. Extremities: No edema. Skin: No rash or ecchymoses. Objective Labs 03/15/25 05:28 03/15/25 06:50 Labs: Laboratory Results - last 24 hr 03/14/25 05:18 WBC 11.2 H RBC 4.57 Hgb 15.0 Hct 43.0 MCV 94 MCH 32.8 MCHC 34.9 RDW Std Deviation 43.0 Plt Count 190 D Neut % (Auto) 66 Lymph % (Auto) 18 [place] % (Auto) 12 Eos % (Auto) 2 Baso % (Auto) 1 Neut # (Auto) 7.3 Lymph # (Auto) 2.1 [place] # (Auto) 1.3 H Eos # (Auto) 0.2 Baso # (Auto) 0.1 Immature Gran # (Auto) 0.15 H Absolute Nucleated RBC 0.00 Immature Gran % 1 H Nucleated RBC % 0 Sodium 144 Potassium 4.2 Chloride 106 Carbon Dioxide 25.6 Anion Gap 12 BUN 10 Creatinine 0.8 Estim Creat Clear Calc 49.6 L eGFR > 60 BUN/Creatinine Ratio 13 Glucose 92 Calculated Osmolality 285 Calcium 8.6 Corrected Calcium 8.9 Magnesium 1.7 Total Bilirubin 0.2 L ALT 19 Alkaline Phosphatase 133 H Total Protein 6.1 Albumin 3.6 Globulin 2.5 Albumin/Globulin Ratio 1.4 Quality Measures Quality Measures none Advance care planning discussed with:: other Assessment & Plan Assessment Current Active Medications: Generic Name Dose Route Start Last Admin Trade Name Freq PRN Reason Stop Dose Admin Acetaminophen 650 mg 03/13/25 00:09 Acetaminophen 325 Mg Tablet PO 04/12/25 00:08 Q6H PRN pain and Fever >100.4 Albuterol/Ipratropium 3 ml 03/13/25 01:00 03/14/25 12:55 Albuterol/Ipratropium (Duoneb) Rt [place] 3 Ml Nebu INH 04/12/25 00:59 3 ml Q6HRRT JERRY Administration Calcium Carbonate 600 mg 03/13/25 09:00 03/14/25 08:28 Calcium Carbonate 600 Mg Tablet PO 04/12/25 08:59 600 mg BID JERRY Administration Docusate Sodium 100 mg 03/13/25 09:00 03/14/25 08:28 Docusate Sod 100 Mg Capsule PO 04/12/25 08:59 100 mg BID JERRY Administration Protocol Heparin Sodium (Porcine) 5,000 unit 03/13/25 06:00 03/14/25 14:22 Heparin Sod Inj 5000 Unit/Ml Vial SC 03/27/25 05:59 5,000 unit Q8HR JERRY Administration Azithromycin 500 mg/ Sodium 250 mls @ 250 mls/hr 03/13/25 21:00 03/13/25 21:13 Chloride IV 03/20/25 20:59 250 mls/hr HS JERRY Administration Ceftriaxone Sodium/Dextrose 1 gm in 50 mls @ 100 mls/hr 03/14/25 11:12 03/14/25 11:28 Rocephin/D5w 1gm Iv Premix IV 03/21/25 11:11 100 mls/hr QDAY JERRY Administration Levetiracetam 1,000 mg 03/13/25 09:00 03/14/25 08:28 Levetiracetam 250 Mg Tablet PO 04/12/25 08:59 1,000 mg QDAY JERRY Administration Levetiracetam 1,500 mg 03/13/25 21:00 03/13/25 20:08 Levetiracetam 250 Mg Tablet PO 04/12/25 20:59 1,500 mg HS JERRY Administration Levothyroxine Sodium 75 mcg 03/13/25 09:00 03/14/25 05:23 Levothyroxine Sodium 25 Mcg Tablet PO 04/12/25 08:59 75 mcg ACBR JERRY Administration Ondansetron HCl 4 mg 03/13/25 00:09 Ondansetron Inj 2 Mg/Ml Inj 2 Ml IVP 04/12/25 00:08 Q6H PRN NAUSEA OR VOMITING Protocol Polyethylene Glycol 17 gm 03/13/25 09:00 03/14/25 08:27 Polyethylene Glycol 17 Gm Packet PO 04/12/25 08:59 17 gm QDAY JERRY Administration Quetiapine Fumarate 100 mg 03/13/25 21:00 03/13/25 20:07 Quetiapine Fumarate 100 Mg Tablet PO 04/12/25 20:59 100 mg HS JERRY Administration Vitamin D 400 iu 03/13/25 09:00 03/14/25 08:28 Cholecalciferol (Vitamin D3) 400 Iu Tablet PO 04/12/25 08:59 400 iu BID JERRY Administration Plan 69-year-old female with past medical history of Down syndrome, asthma, hypothyroidism, and seizure disorder was admitted to the hospital on 03/13/2025 for acute cephalopathy and acute hypoxic respiratory failure likely secondary to community-acquired pneumonia. 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 Chest x-ray that showed left pneumonia WBC 17.3 Procalcitonin negative Lactic acid 2.6 and down trended to 1.6 No wheezing on auscultation Tested negative for COVID, influenza and RSV Prelim blood cultures - Positive GPC, pending final blood cultures Plan: Started on Vancomycin (03/13 - 03/14), stopped on 03/14 as patient developed erythema at the site of infusion and facial flushing Started on ceftriaxone [03/14- DuoNebs ordered O2 as needed Will continue to monitor Chronic diseases: #Down syndrome #Hypothyroidism #Seizures Seizures precautions ordered TSH ordered for morning labs Will restart medications once med reconciliation is done. Disposition: [facility] Abx for CAP. Diet: Dysphagia 1 GI prophylaxis: not indicated DVT prophylaxis: heparin sub cu Code: Full Patient plan of care was discussed with the attending physician, Dr. Ruiz and senior resident Dr. Cait Farah, PGY1 Attending Provider Attestation/Addendum I, Jodie Ruiz, , attest that I was physically present for the torres portions of the service and evaluated the patient with the resident and I reviewed and discussed the case with the resident and agree with the resident's findings and plans of care as documented above Patient seen and evaluated this AM. Patient had some redness at site of infusion with vancomycin. Will discontinue Vancomcyin at this time as MRSA is negative. Blood and sputum cultures are positive for GPC. Will continue with rocephin at this time as MSSA is suspected. Will also continue with azithromycin. F/u with final cultures and sensitivities.
--- NOTE | 2025-03-14 16:20 | PC.SS ---
rounding note: Due to positive blood cultures, will start on vancomycin and repeat blood cultures.
[2025-03-14] MEDS: levETIRAcetam 250 MG TABLET 1500 MG PO (20:08)
[2025-03-14] MEDS: SODIUM CHLORIDE 0.9% 500 ML 500 ML 999 ML IV (20:08)
[2025-03-14] MEDS: AZITHROMYCIN INJ 500 MG in SODIUM CHLORIDE 0.9% 250 ML 250 ML 250 MG IV (20:09)
[2025-03-14] MEDS: QUEtiapine FUMARATE 100 MG TABLET PO (21:09)
--- NOTE | 2025-03-14 23:28 | PC.NURSE ---
called Dr. Cook regarding patient's current BP of 98/63, HR 62, patient received 500 cc NS bolus at around 2007 for BP of 96/51, which BP improved to 111/83 after administration of bolus. No new orders received.
[2025-03-15] VITALS (9 sets, daily range): BP systolic 98–140; BP diastolic 63–81; PULSE 59–100; RESP 16–22; TEMP 36–37.1; O2SAT 93–100
[2025-03-15] MEDS: ALBUTEROL/IPRATROPIUM (Duoneb) RT SOL 3 ML NEBU INH ×3 (00:59→19:03)
[2025-03-15] MEDS: LEVOTHYROXINE SODIUM 25 MCG TABLET 75 MCG PO (05:17)
[2025-03-15] MEDS: HEPARIN SOD INJ 5000 UNIT/ML VIAL SC ×3 (05:17→21:00)
[2025-03-15 05:56] LABS: Basophils # (Auto) 0.1 Thou/mm3 (0.0-0.2); Basophils % (Auto) 1 % (0-2.5); Eosinophils # (Auto) 0.3 Thou/mm3 (0.0-0.5); Eosinophils % (Auto) 3 % (0-10); Hematocrit 38.7 % (36.0-46.0); Hemoglobin 13.4 g/dL (12.0-16.0); Immature Granulocytes % (Auto) 1 % (0-0); Immature Granulocytes Auto 0.08 Thou/mm3 (0.00-0.00); Lymphocytes # (Auto) 1.6 Thou/mm3 (1.0-4.8); Lymphocytes % (Auto) 15 % (10-50); Mean Corpuscular HGB Conc 34.6 g/dl (31.0-37.0); Mean Corpuscular Hemoglobin 32.5 pg (25.0-35.0); Mean Corpuscular Volume 94 fL (80-100); Monocytes # (Auto) 0.9 Thou/mm3 (0.0-0.8); Monocytes % (Auto) 9 % (0-12); Neutrophils # (Auto) 7.6 Thou/mm3 (1.8-7.7); Neutrophils % (Auto) 72 % (37-80); Nucleated Red Blood Cell % 0 /100 WBC (0); Platelet Count 208 Thou/mm3 (140-440); RDW Standard Deviation 44.2 fL (36.4-46.3); Red Blood Count 4.12 Miln/mm3 (4.00-5.20); White Blood Count 10.6 Thou/mm3 (3.6-11.0)
[2025-03-15 07:34] LABS: Alanine Aminotransferase 26 U/L (10-49); Albumin, Serum 3.5 gm/dL (3.4-4.8); Albumin/Globulin Ratio 1.4 (1.2-2.2); Alkaline Phosphatase 130 U/L (46-116); Anion Gap 10 (7-16); BUN/Creatinine Ratio 18 Ratio (12-20); Bilirubin,Total 0.3 mg/dL (0.3-1.2); Blood Urea Nitrogen 14 mg/dL (9-23); Calcium 8.6 mg/dL (8.3-10.6); Carbon Dioxide 28.7 mMol/L (20.0-31.0); Chloride 108 mMol/L (98-107); Creatinine (Component) 0.8 mg/dL (0.6-1.3); Estimated Creatinine Clearance 49.6 mL/min (>60); Globulin 2.5 gm/dL (2.3-3.5); Glucose 103 mg/dL (74-106); Magnesium 1.9 mg/dL (1.6-2.6); Osmolality,Calculated 292 (275-295); Sodium 147 mMol/L (136-145); eGFR > 60 See Note
[2025-03-15] MEDS: cefTRIAXone/D5w 1gm IV premix 1 GM/50 ML BAG IV (09:09)
[2025-03-15] MEDS: levETIRAcetam 250 MG TABLET 1000 MG PO (09:10)
[2025-03-15] MEDS: CHOLECALCIFEROL (Vitamin D3) 400 IU TABLET PO ×2 (09:10→20:49)
[2025-03-15] MEDS: CALCIUM CARBONATE 600 MG TABLET PO ×2 (09:10→20:49)
[2025-03-15] MEDS: DOCUSATE SOD 100 MG CAPSULE PO ×2 (09:10→20:49)
[2025-03-15] MEDS: POLYETHYLENE GLYCOL 17 GM PACKET PO (09:31)
--- NOTE | 2025-03-15 16:04 | ESPR_ITS ---
<Statement entered by Stan Chavira MD - 03/15/25 17:41> Overnight patient low BP, patient was administered 500 cc bolous fluid. Sputum culture grew staph aureus and blood culture from 03/12 grew staph epidermidis which most likely is contamination. Repeat blood culture has been negative at 48 hours. Anticipating to d/c patient within 24 hours if she continues to be stable. I discussed with and supervised the actuarial intern physician involved in the care of this patient. Patient assessment and plan was discussed with entire medicine team, including my attending. I agree with the assessment and plan as documented by actuarial intern doctor. Patient care was discussed with my attending physician Dr. Sara Chavira, PGY-2 Documentation for date of: 03/15/25 Subjective Subjective Interval history: Patient is seen and examined at bedside Vitals are stable and physical examination remains unchanged. Rash at the site of vancomycin injection is resolving Final cultures came back positive for Staphylococcus epidermidis, likely contaminant Sputum cultures came back positive for Staph aureus CBC and CMP within normal limits except for mild hypernatremia sodium 147 Discontinued azithromycin. Planning to discharge tomorrow Exam Vital Signs Temp Pulse Resp BP Pulse Ox O2 Del Method O2 Flow Rate 98.8 F 92 20 136/81 H 94 L Room Air 2 03/15/25 12:00 03/15/25 12:00 03/15/25 12:00 03/15/25 12:00 03/15/25 12:00 03/15/25 12:00 03/13/25 16:00 Narrative Exam General: Awake. noted alopecia HEENT: Normocephalic, atraumatic, mucous membranes moist. Heart: Regular rate and rhythm, no murmurs. Lungs: Clear to auscultation with no wheezing or crackles. Abdomen: Soft, nondistended, nontender, positive bowel sounds. ?No guarding or rebound tenderness. Neurologic: Alert and oriented x3, no gross neurological deficit, and patient able to move all 4 extremities. Extremities: No edema. Skin: No rash or ecchymoses. Objective Labs 03/15/25 05:28 03/15/25 06:50 Labs: Laboratory Results - last 24 hr 03/15/25 03/15/25 05:28 06:50 WBC 10.6 RBC 4.12 Hgb 13.4 Hct 38.7 MCV 94 MCH 32.5 MCHC 34.6 RDW Std Deviation 44.2 Plt Count 208 Neut % (Auto) 72 Lymph % (Auto) 15 [place] % (Auto) 9 Eos % (Auto) 3 Baso % (Auto) 1 Neut # (Auto) 7.6 Lymph # (Auto) 1.6 [place] # (Auto) 0.9 H Eos # (Auto) 0.3 Baso # (Auto) 0.1 Immature Gran # (Auto) 0.08 H Absolute Nucleated RBC 0.00 Immature Gran % 1 H Nucleated RBC % 0 Sodium 147 H Potassium 4.0 Chloride 108 H Carbon Dioxide 28.7 Anion Gap 10 BUN 14 Creatinine 0.8 Estim Creat Clear Calc 49.6 L eGFR > 60 BUN/Creatinine Ratio 18 Glucose 103 Calculated Osmolality 292 Calcium 8.6 Corrected Calcium 9.0 Magnesium 1.9 Total Bilirubin 0.3 ALT 26 Alkaline Phosphatase 130 H Total Protein 6.0 Albumin 3.5 Globulin 2.5 Albumin/Globulin Ratio 1.4 Quality Measures Quality Measures none Advance care planning discussed with:: other Assessment & Plan Assessment Current Active Medications: Generic Name Dose Route Start Last Admin Trade Name Freq PRN Reason Stop Dose Admin Acetaminophen 650 mg 03/13/25 00:09 Acetaminophen 325 Mg Tablet PO 04/12/25 00:08 Q6H PRN pain and Fever >100.4 Albuterol/Ipratropium 3 ml 03/13/25 01:00 03/15/25 07:20 Albuterol/Ipratropium (Duoneb) Rt [place] 3 Ml Nebu INH 04/12/25 00:59 3 ml Q6HRRT JERRY Administration Calcium Carbonate 600 mg 03/13/25 09:00 03/15/25 09:10 Calcium Carbonate 600 Mg Tablet PO 04/12/25 08:59 600 mg BID JERRY Administration Docusate Sodium 100 mg 03/13/25 09:00 03/15/25 09:10 Docusate Sod 100 Mg Capsule PO 04/12/25 08:59 100 mg BID JERRY Administration Protocol Heparin Sodium (Porcine) 5,000 unit 03/13/25 06:00 03/15/25 14:20 Heparin Sod Inj 5000 Unit/Ml Vial SC 03/27/25 05:59 5,000 unit Q8HR JERRY Administration Ceftriaxone Sodium/Dextrose 1 gm in 50 mls @ 100 mls/hr 03/14/25 11:12 03/15/25 09:09 Rocephin/D5w 1gm Iv Premix IV 03/21/25 11:11 100 mls/hr QDAY JERRY Administration Levetiracetam 1,000 mg 03/13/25 09:00 03/15/25 09:10 Levetiracetam 250 Mg Tablet PO 04/12/25 08:59 1,000 mg QDAY JERRY Administration Levetiracetam 1,500 mg 03/13/25 21:00 03/14/25 20:08 Levetiracetam 250 Mg Tablet PO 04/12/25 20:59 1,500 mg HS JERRY Administration Levothyroxine Sodium 75 mcg 03/13/25 09:00 03/15/25 05:17 Levothyroxine Sodium 25 Mcg Tablet PO 04/12/25 08:59 75 mcg ACBR JERRY Administration Ondansetron HCl 4 mg 03/13/25 00:09 Ondansetron Inj 2 Mg/Ml Inj 2 Ml IVP 04/12/25 00:08 Q6H PRN NAUSEA OR VOMITING Protocol Polyethylene Glycol 17 gm 03/13/25 09:00 03/15/25 09:31 Polyethylene Glycol 17 Gm Packet PO 04/12/25 08:59 17 gm QDAY JERRY Administration Quetiapine Fumarate 100 mg 03/13/25 21:00 03/14/25 21:09 Quetiapine Fumarate 100 Mg Tablet PO 04/12/25 20:59 100 mg HS JERRY Administration Vitamin D 400 iu 03/13/25 09:00 03/15/25 09:10 Cholecalciferol (Vitamin D3) 400 Iu Tablet PO 04/12/25 08:59 400 iu BID JERRY Administration Plan 69-year-old female with past medical history of Down syndrome, asthma, hypothyroidism, and seizure disorder was admitted to the hospital on 03/13/2025 for acute cephalopathy and acute hypoxic respiratory failure likely secondary to community-acquired pneumonia. 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 Chest x-ray that showed left pneumonia WBC 17.3 Procalcitonin negative Lactic acid 2.6 and down trended to 1.6 No wheezing on auscultation Tested negative for COVID, influenza and RSV Final blood cultures - Positive GPC, Staph epidermidis, Sputum cultures - staph aureus Plan: Started on Vancomycin (03/13 - 03/14), stopped on 03/14 as patient developed erythema at the site of infusion and facial flushing Started on ceftriaxone [03/14- Discontinued Azithromycin DuoNebs ordered O2 as needed Will continue to monitor Chronic diseases: #Down syndrome #Hypothyroidism #Seizures Seizures precautions ordered TSH ordered for morning labs Will restart medications once med reconciliation is done. Disposition: Patient admitted to [facility], Abx for CAP. Diet: Dysphagia 1 GI prophylaxis: not indicated DVT prophylaxis: heparin sub cu Code: Full Patient plan of care was discussed with the attending physician, Dr. Ruiz and senior resident Dr. Cait Farah, PGY1 Attending Provider Attestation/Addendum Joanna, Jodie Ruiz, , attest that I was physically present for the torres portions of the service and evaluated the patient with the resident and I reviewed and discussed the case with the resident and agree with the resident's findings and plans of care as documented above Patient seen and evaluated this AM. Patient remains at baseline. She continues to have some redness in left antecubital fossa, likely 2/2 IV infiltration. Recommend warm compress and elevation. Customer Service And Sales Consultant is at bedside. States that patient often bites her finger and rubs her face that results in redness around her mouth. Patient has mild cough, but remains on room air. Will continue with rocephin at this time and f/u with final cultures and sensitvities of blood and sputum cultures.
[2025-03-15] MEDS: levETIRAcetam 250 MG TABLET 1500 MG PO (20:49)
[2025-03-15] MEDS: QUEtiapine FUMARATE 100 MG TABLET PO (20:49)
[2025-03-16] VITALS: BP 94/61; PULSE 66; RESP 15; TEMP 36.1; O2SAT 95
[2025-03-16] MEDS: ALBUTEROL/IPRATROPIUM (Duoneb) RT SOL 3 ML NEBU INH ×2 (01:14→06:23)
[2025-03-16 01:15] VITALS: PULSE 75; RESP 20; O2SAT 99
[2025-03-16 04:00] VITALS: BP 92/58; PULSE 63; RESP 16; TEMP 36.2; O2SAT 94
[2025-03-16] MEDS: LEVOTHYROXINE SODIUM 25 MCG TABLET 75 MCG PO (05:00)
[2025-03-16] MEDS: HEPARIN SOD INJ 5000 UNIT/ML VIAL SC (05:01)
[2025-03-16 06:24] VITALS: PULSE 49; RESP 18; O2SAT 100
[2025-03-16 08:00] VITALS: BP 98/64; PULSE 55; RESP 19; TEMP 36; O2SAT 96
[2025-03-16] MEDS: levETIRAcetam 250 MG TABLET 1000 MG PO (09:24)
[2025-03-16] MEDS: CHOLECALCIFEROL (Vitamin D3) 400 IU TABLET PO (09:24)
[2025-03-16] MEDS: CALCIUM CARBONATE 600 MG TABLET PO (09:24)
[2025-03-16] MEDS: DOCUSATE SOD 100 MG CAPSULE PO (09:24)
[2025-03-16] MEDS: cefTRIAXone/D5w 1gm IV premix 1 GM/50 ML BAG IV (09:25)
[2025-03-16] MEDS: POLYETHYLENE GLYCOL 17 GM PACKET PO (09:45)
[2025-03-16 10:05] LABS: Vancomycin,Trough < 3.0 mcg/mL (5.0-10.0)
--- NOTE | 2025-03-16 10:58 | PC.SS ---
Follow up note: SS spoke to physician team and patient is medically stable for d/c. Patient will return to [facility]. SS phoned patient's [facility] procurement engineer, Manjinder. He confirmed he was on his way to see patient and he will be taking patient home. Physician putting in orders for d/c. SS will phone Manjinder and floor nurse. RUDDY will leave [facility] for [facility] manager rn case, Neda @ [phone]
--- NOTE | 2025-03-16 11:04 | ESDS_ITS ---
<Statement entered by Stan Chavira MD - 03/20/25 23:43> I discussed with and supervised the consultant intern physician involved in the care of this patient. Patient assessment and plan was discussed with entire medicine team, including my attending. I agree with the assessment and plan as documented by consultant intern doctor. Patient care was discussed with my attending physician Dr. Ghulam Chavira, PGY-2 Planned Discharge Date 03/16/25 DS: Providers Provider Date of admission: 03/13/25 00:09 Primary care physician: Physician Belinda Primary/Family Admitting Provider: Norma Fernández MD Attending Provider on Admission: Jodie Ruiz DO Consults: 03/13/25 08:33 Referral Speech Therapy Routine Comment: Patient NPO failed Nurse swallow screen Attending Provider on DC: Raul Farah MD Discharging Provider: Raul Farah MD DS: Diagnosis Problem List Completed Was Problem List Reviewed/Reconciled?: Yes Hospital Course Hospital Course Hospital course: 69-year-old female with past medical history of Down syndrome, asthma, hypothyroidism, and seizure disorder was admitted to the hospital on 03/13/2025 after come to the ED with complaints of lethargy, phlegm production, chills, and low O2 and admitted for Pneumonia 2/2 staph aureus Hospital course: Initially came in afebrile and normotensive, but hypoxic. Initial labs showed leukocytosis, lactic acidosis, and UA showed bacteria. Initial imaging included EKG which showed sinus rhythm. Chest x-ray that shows some left mid and lower lobe pneumonia.Tested negative for COVID, influenza and RSV. Final blood cultures - Positive GPC, Staph epidermidis, Sputum cultures - staph aureus. Patient was treated with antibiotics during the hospital stay and recovered well without any significant events Patient is discharged back to her facility with the following medications and recommendations -Follow-up with PCP within 1 week of discharge. If you do not have appointment, please follow-up with the [facility] with Dr. Farah. Call [phone] to make an appointment. -Recommended to take Doxycycline 100mg orally twice daily for 3 days -Recommended to continue to take rest of the home medications as prescribed -Recommended head end elevation after having a meal -Return to ED if symptoms persist or return #Acute hypoxic respiratory failure, resolved #GPC Bacteremia - staph epidermidis, ?contaminant #Community-acquired pneumonia, staph aureus #Lactic acidosis, resolved #Hx of asthma Chronic diseases: #Down syndrome #Hypothyroidism #Seizures Patient plan of care was discussed with the attending physician, Dr. Parmar and senior resident Dr. Cait Farah, PGY1 Time Spent with Patient Time attestation: Total time spent providing and/or coordinating discharge services: Time spent: Greater than 30 minutes Exam Vital Signs Temp Pulse Resp BP Pulse Ox O2 Del Method O2 Flow Rate 97.5 F 80 18 118/61 96 Room Air 2 03/16/25 11:56 03/16/25 11:56 03/16/25 11:56 03/16/25 11:56 03/16/25 11:56 03/16/25 11:56 03/13/25 16:00 Narrative Exam General: Awake. noted alopecia HEENT: Normocephalic, atraumatic, mucous membranes moist. Heart: Regular rate and rhythm, no murmurs. Lungs: Clear to auscultation with no wheezing or crackles. Abdomen: Soft, nondistended, nontender, positive bowel sounds. ?No guarding or rebound tenderness. Neurologic: Alert and oriented x3, no gross neurological deficit, and patient able to move all 4 extremities. Extremities: No edema. Skin: No rash or ecchymoses. Discharge Plan Plan Patient Disposition: Xfer [facility]illed [facility] ([facility]NF) Patient condition on transfer: Stable Care Plan Goals: -Follow-up with PCP within 1 week of discharge. If you do not have appointment, please follow-up with the [facility] with Dr. Farah. Call [phone] to make an appointment. -Recommended to take Doxycycline 100mg orally twice daily for 3 days -Recommended to continue to take rest of the home medications as prescribed -Recommended head end elevation after having a meal -Return to ED if symptoms persist or return Prescriptions/Referrals Prescriptions/Med Rec: New doxycycline monohydrate 100 mg capsule 100 mg PO BID Qty: 6 0RF Rx Instructions: Take 1 tablet twice daily for 3 days Continued methenamine hippurate [Hiprex] 1 gram tablet 1 g PO QDAY quetiapine 100 mg tablet 100 mg PO HS levothyroxine 75 mcg tablet 75 mcg PO DAILY docusate sodium 100 mg capsule 100 mg PO BID aspirin 81 mg tablet,chewable 81 mg PO DAILY montelukast 10 mg tablet 10 mg PO DAILY loratadine 10 mg tablet 10 mg PO DAILY calcium carbonate-vitamin D3 600 mg-10 mcg (400 unit) tablet 1 tab PO BID levetiracetam [Keppra XR] 500 mg Tablet Extended Release 24 Hr 1,000 mg PO QMORNING Rx Instructions: two tablets by mouth in the morning 1000mg three tablets by mouth at bedtime 1500mg cranberry extract [Cranberry Concentrate] 500 mg Capsule 500 mg PO QDAY Rx Instructions: administer with meals polyethylene glycol 3350 17 gram/dose powder 17 g PO QDAY Referrals: No Primary/Family,Physician [Primary Care Provider] - Patient/Caregiver Discharge Instructions Education Materials: Preventing Pneumonia, Treating Pneumonia, Preventing Common Respiratory ..., ED Pneumonia (Adult) Print Language: Ivorian Stand Alone Forms: Laurie Award Info., Patient Portal Info Letter Discharge Order Discharge Orders: Discharge (Routine); Ordered 03/16/25 Ordered By: Raul Farah Quality Discharge Quality Measures VTE prophylaxis Attestestation MD Attestation I attest that I was physically present for the evaluation, physical examination, lab and imaging review of the patient with the residents. I discussed the case with the residents and agree with the findings and plans of care as documented above. Clair Parmar MD
--- NOTE | 2025-03-16 11:51 | PC.NURSE ---
Dr. Grubbs patient ready for discharge, she assess pt at bedside this morning.
[2025-03-16 11:56] VITALS: BP 118/61; PULSE 80; RESP 18; TEMP 36.4; O2SAT 96
== END 2025-03-16 12:06 | disposition skilled nursing facility (03) | DRG 177 ==
LOC: SERX 23:41 → SERHOLD 03-13 02:35 → S3NX 03-13 04:42
PROVIDERS: Admitting Provider Internal Medicine; Emergency Provider Emergency Medicine; Visit Provider Internal Medicine
DX: J15.211 Pneumonia due to Methicillin susceptible Staphylococcus aureus (principal); G93.41 Metabolic encephalopathy; J96.01 Acute respiratory failure with hypoxia; E87.20 Acidosis, unspecified; N39.0 Urinary tract infection, site not specified; E87.0 Hyperosmolality and hypernatremia; Q90.9 Down syndrome, unspecified; J45.909 Unspecified asthma, uncomplicated; G40.909 Epilepsy, unspecified, not intractable, without status epilepticus; E03.9 Hypothyroidism, unspecified; Z79.890 Hormone replacement therapy; T50.901A Poisoning by unspecified drugs, medicaments and biological substances, accidental (unintentional), initial encounter
CPT/HCPCS: 36415; 71045; 80053; 80061; 80202; 81001; 83605; 83690; 83735; 83880; 84145; 84443; 84484; 85025; 87040; 87077; 87081; 87086; 87186; 87205; 87400; 87634; 87811; 89220; 92526; 92610; 93005; 94640; 96365; 96366; 96367; 99285; A9270; J0456; J0696; J1644; J3370; J7030; J7040; J7050

== ENCOUNTER 2025-05-14 09:55 | Inpatient (IN) | payer MEDICARE, MEDICAID, SELFPAY ==
[2025-05-14] VITALS (27 sets, daily range): BP systolic 70–146; BP diastolic 42–89; PULSE 63–102; RESP 13–88; TEMP 35.9–37.7; O2SAT 92–100; BMI 27.5
--- NOTE | 2025-05-14 09:59 | XR_ITS ---
Examination: AP chest single view Technique one AP portable supine chest single view Date and time: May 14, 2025 1101 hours Comparison March 12, 2025 INDICATIONS: Shortness of breath this morning. FINDINGS: Suspicious for early bilateral perihilar pneumonia. Normal heart size Prominent osteopenia IMPRESSION: Suspicious for early bilateral perihilar pneumonia
--- NOTE | 2025-05-14 09:59 | EKG_ITS ---
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
--- NOTE | 2025-05-14 10:01 | PD.EDSOB ---
ED SOB =RME/HPI General Chief Complaint: Shortness of Breath/Dyspnea Stated Complaint: SOB Time Seen by Provider: 05/14/25 09:59 Arrival date/time: 05/14/25 09:55 RME / HPI RME / HPI Narrative: 70 year old female with history of down syndrome, seizures, asthma, hypothyroidism [facility] of shortness of breath. Per medics, penitentiary staff reported the patient was at her baseline this morning which is GCS of 9/10, able to respond yes/no, and follow commands. Shortly after noted she appeared short of breath and saturating low on room air. Per medics, on scene the patient was receiving a breathing treatment, lethargic, blood pressure 97/58, and were unable to get an accurate SPO2 reading. Patient was given an additional breathing treatment en route. Related Data Home Medications ?Medication ?Instructions ?Recorded ?Confirmed aspirin 81 mg chewable tablet 81 mg PO DAILY Elevated Lipids 09/23/23 05/14/25 calcium 600 mg (as 1 tab PO BID 09/23/23 05/14/25 carbonate)-vitamin D3 10 mcg (400 unit) tablet docusate sodium 100 mg capsule 100 mg PO BID Constipation 09/23/23 05/14/25 levothyroxine 75 mcg tablet 75 mcg PO DAILY 09/23/23 05/14/25 loratadine 10 mg tablet 10 mg PO DAILY 09/23/23 05/14/25 montelukast 10 mg tablet 10 mg PO DAILY 09/23/23 05/14/25 quetiapine 100 mg tablet 100 mg PO HS 09/23/23 05/14/25 cranberry extract 500 mg capsule 500 mg PO QDAY 12/04/23 05/14/25 (Cranberry Concentrate) levetiracetam 500 mg 1,000 mg PO QMORNING 03/14/24 05/14/25 tablet,extended release 24 hr (Keppra XR) methenamine hippurate 1 gram 1 g PO QDAY 08/10/24 05/14/25 tablet (Hiprex) polyethylene glycol 3350 17 17 g PO QDAY 03/13/25 05/14/25 gram/dose oral powder Allergies Allergy/AdvReac Type Severity Reaction Status Date / Time No Known Allergies Allergy Unverified 03/12/25 16:06 Review of Systems Review of Systems ROS Unobtainable: unobtainable due to medical condition Past Medical History Past Medical History NEUROLOGIC: Positive Neurological Disorders and Seizures CARDIAC: Positive Hypercholesterolemia RESPIRATORY: Positive Asthma GASTROINTESTINAL: Positive Gastrointestinal Bleed ENT: Positive Cataracts (OCCULAR LENSES) ENDOCRINE: Positive Hyperthyroidism and Hypothyroidism OTHER HISTORY: Positive Hospitalization, Down Syndrome and Developmental Delay Family History FAMILY HISTORY: Negative Family Cardiac Disorders Social History SMOKING STATUS: Never smoker ED Exam Narrative Physical exam: GENERAL APPEARANCE: Patient arrived initially with decreased respiratory rate that improved with repositioning, generally ill appearing, lethargic. HEENT: Normocephalic, atraumatic; EOMI; mucous membranes pink, moist; oropharynx clear NECK: Supple LUNGS: CTABL; no wheezes, no rales, no rhonchi HEART: Mildly tachycardic; normal S1, S2; no murmurs ABDOMEN: non distended; normal BS; soft, does not appear to be tender on exam, no guarding, no rebound EXTREMITIES: atraumatic NEUROLOGIC: Responds to tactile stimuli only at this time, lethargic SKIN: warm, dry, normal color; no rashes Course Course Course Narrative: 1040: The patient was hypotensive SBP 80s and hypoxic in the mid 80s on 15L. Considered BiPAP but when we went to lay the patient flat to get better IV access, her blood pressure and saturation improved. Blood pressure 110s and oxygen 100% on 15L. Will wait for the remainder of work up and discuss with hospitalist for admission. 1240h: Patient's blood pressure did dip again to the 70's systolic, added additional fluid bolus. Patient has pneumonia on x-ray. Fluids and antibiotics have been ordered. Discussed with hospitalist team for admission. Quality Measures none Orders Category Date Time Status Bedside COVID-19 Antigen Test NOW Care 05/14/25 12:57 Active Bedside Influenza A&B Antigen Test NOW Care 05/14/25 12:58 Active COVID-19 Screening Questionnaire NOW Care 05/14/25 13:09 Active Template Reproduction Technician NOW Care 05/14/25 10:00 Active Continuous Pulse Oximetry NOW Care 05/14/25 09:59 Completed Decision to Admit X1 Care 05/14/25 13:09 Completed EKG (ED ONLY) *Do not use* NOW Care 05/14/25 10:00 Completed In and Out Catheter X1 Care 05/14/25 09:59 Completed Insert IV NOW Care 05/14/25 10:00 Active Insert IV NOW Care 05/14/25 10:15 Completed Nasopharyngeal Suction NEEDED Care 05/14/25 10:41 Active EKG (ED Only) Stat Exams 05/14/25 09:59 Draft XR chest 1V portable Stat Exams 05/14/25 09:59 Completed Arterial Blood Gas Stat Lab 05/14/25 10:03 Completed B-Type Natriuretic Peptide Stat Lab 05/14/25 13:12 Completed Blood Culture (Lab) Stat Lab 05/14/25 10:55 Received CBC Stat Lab 05/14/25 13:12 Completed Comprehensive Metabolic Panel Stat Lab 05/14/25 11:19 Completed D-Dimer Stat Lab 05/14/25 13:12 Completed Drug Screen,Urine Stat Lab 05/14/25 10:20 Completed Magnesium Stat Lab 05/14/25 11:19 Completed Partial Thromboplastin Time Stat Lab 05/14/25 13:12 Completed Procalcitonin Stat Lab 05/14/25 11:19 Completed Prothrombin Time with INR Stat Lab 05/14/25 13:12 Completed Troponin I Stat Lab 05/14/25 11:19 Completed Urinalysis Stat Lab 05/14/25 10:20 Completed Urine Culture Stat Lab 05/14/25 10:20 Received Azithromycin Inj [Zithromax Inj] 500 mg Med 05/15/25 09:00 Pending Sodium Chloride 0.9% 250 ml [Ns] 250 ml IV QDAY Azithromycin Inj [Zithromax Inj] 500 mg Med 05/14/25 13:15 Active Sodium Chloride 0.9% 250 ml [Ns] 250 ml IV X1 Sodium Chloride 0.9% 1000 ml [Ns] 1,000 ml Med 05/14/25 09:59 Discontinued IV 999 mls/hr Sodium Chloride 0.9% 1000 ml [Ns] 1,000 ml Med 05/14/25 12:38 Discontinued IV 999 mls/hr cefTRIAXone/D5w 1gm IV premix [Rocephin/D5w 1gm IV Med 05/14/25 12:56 Active premix] 1 gm in 50 ml IV QDAY Oxygen Delivery NOW RT 05/14/25 09:59 Active Vital Signs Vital signs: Vital Signs Temperature 99.9 F 05/14/25 10:04 Pulse Rate 93 05/14/25 10:04 Respiratory Rate 16 05/14/25 10:04 Blood Pressure 97/56 L 05/14/25 10:04 Pulse Oximetry (%) 93 L 05/14/25 10:04 Oxygen Delivery Method Nasal Cannula 05/14/25 10:04 Oxygen Flow Rate 4 05/14/25 10:04 Shortness of Breath / Dyspnea MDM Narrative MDM Narrative:: Ginette Marshall am scribing for and in the presence of Dr. Solano. Patient data External records reviewed:: [facility] previous records (I reviewed admission from 03/13/2025 through 03/16/2025) and EMS form Clinical information provided by:: EMS Social determinants that could affect healthcare access:: housing ([facility] ) Patient has the following chronic illnesses:: down syndrome, seizures, asthma, hypothyroidism How is presenting disease/condition affected by chronic disease/condition?: exacerbated by Evaluation data The following diagnostics were reviewed and interpreted by me:: lab results, radiology exam(s) and EKG tracing(s) (05/14/2025 @ 10:15 AM. Sinus rhythm, rate 92, no STEMI. ) Lab and/or radiology exams considered but not ordered:: None Interpretation Summary: Ordering Physician: Deepika Solano MD Date of Service: 05/14/25 Procedure(s): XR chest 1V portable Accession Number(s): [id number] cc: Jose Manuel Croft MD; Deepika Solano MD~ Examination: AP chest single view Technique one AP portable supine chest single view Date and time: May 14, 2025 1101 hours Comparison March 12, 2025 INDICATIONS: Shortness of breath this morning. FINDINGS: Suspicious for early bilateral perihilar pneumonia. Normal heart size Prominent osteopenia IMPRESSION: Suspicious for early bilateral perihilar pneumonia Dictated By: Jose Manuel Croft MD Signed By: <Electronically signed by Jose Manuel Croft MD in OV> 05/14/25 1125 Medications / Prescriptions Medications or Prescriptions considered but not ordered:: None Medication administrations:: Medication Administration History Ceftriaxone Sodium/Dextrose (Rocephin/D5w 1gm Iv Premix) 1 gm in 50 mls @ 100 mls/hr IV QDAY JERRY Stop: 05/21/25 12:55 Last Admin: 05/14/25 13:16 Dose: 100 mls/hr Documented By: DB Azithromycin 500 mg/ Sodium (Chloride) 250 mls @ 250 mls/hr IV QDAY JERRY Stop: 05/22/25 08:59 Azithromycin 500 mg/ Sodium (Chloride) 250 mls @ 250 mls/hr IV X1 ONE Stop: 05/14/25 14:14 Discontinued Medications Sodium Chloride (Ns) 1,000 mls @ 999 mls/hr IV .Q1H1M ONE Stop: 05/14/25 10:59 Last Infusion: 05/14/25 12:03 Dose: Infused Documented By: Admin: 05/14/25 10:16 Dose: 999 mls/hr Documented By: YAMILA Sodium Chloride (Ns) 1,000 mls @ 999 mls/hr IV .Q1H1M ONE Stop: 05/14/25 13:38 Last Infusion: 05/14/25 13:49 Dose: Infused Documented By: Admin: 05/14/25 12:41 Dose: 999 mls/hr Documented By: YAMILA See above Consultations Consultation(s) initiated? (list below): No Diagnosis Shortness of Breath Differential Diagnosis: acute exacerbation of chronic obstructive airways disease, congestive heart failure, community acquired pneumonia and asthma with exacerbation Most likely diagnosis given after review of the tests above:: Pneumonia Hypoxia Admission Indicated Admission indicated?: indicated Admission Request Was there a request for admission?: Yes Admission Attestation Admission request attestation: Discussed case with [] from Hospitalist service regarding admission. Discussed patients ED course, exam findings, labs, and radiology results. The Hospitalist [agrees,declines] to accept the patient for admission. Disposition Plan Disposition Plan: Admit Critical Care Time Critical Care Time Critical Care Time: Yes Total Critical Care Time (min.): 35 Attestation: The high probability of sudden, clinically significant deterioration in the patient's condition required the highest level of my preparedness to intervene urgently. The services I provided to this patient were to treat and/or prevent clinically significant deterioration. Services included the following: chart data review, reviewing nursing notes and/or old charts, documentation time, dairy consultant collaboration regarding findings and treatment options, medication orders and management, direct patient care, vital sign assessments and ordering, interpreting and reviewing diagnostic studies and lab tests. Aggregate critical care time includes only time during which I was engaged in work directly related to the patient's care, as described above, whether at bedside or elsewhere in the Emergency Department. It did not include time spent performing other reported procedures or the services of residents, students, nurses or physician assistants. Discharge Plan Plan Patient Disposition: Admit Acute Care w/in Hospital Prescriptions/Referrals Prescriptions/Med Rec: No Action methenamine hippurate [Hiprex] 1 gram tablet 1 g PO QDAY quetiapine 100 mg tablet 100 mg PO HS levothyroxine 75 mcg tablet 75 mcg PO DAILY docusate sodium 100 mg capsule 100 mg PO BID aspirin 81 mg tablet,chewable 81 mg PO DAILY montelukast 10 mg tablet 10 mg PO DAILY loratadine 10 mg tablet 10 mg PO DAILY calcium carbonate-vitamin D3 600 mg-10 mcg (400 unit) tablet 1 tab PO BID levetiracetam [Keppra XR] 500 mg Tablet Extended Release 24 Hr 1,000 mg PO QMORNING Rx Instructions: two tablets by mouth in the morning 1000mg three tablets by mouth at bedtime 1500mg cranberry extract [Cranberry Concentrate] 500 mg Capsule 500 mg PO QDAY Rx Instructions: administer with meals polyethylene glycol 3350 17 gram/dose powder 17 g PO QDAY Referrals: Rolando Rosas MD [Primary Care Provider] - In 1 week Problem List Clinical Impression: Pneumonia, Hypoxia Patient/Caregiver Discharge Instructions Print Language: Puerto Rican Stand Alone Forms: Laurie Award Info., Patient Portal Info Letter
[2025-05-14] MEDS: SODIUM CHLORIDE 0.9% 1000 ML 1,000 ML 999 ML IV ×3 (10:16→16:21)
[2025-05-14 10:24] LABS: Base Excess 3 (-3-3); HCO3 29 mEq/L (20-26); Inspired O2, VO2 Liters 3 L/min; O2 Saturation 86 % (91-98); PCO2 45 mmHg (32.0-48.0); pH, Arterial 7.41 (7.35-7.45)
[2025-05-14 10:25] LABS: PO2 52 mmHg (83-108)
[2025-05-14 10:26] LABS: Allen Test Performed/OK; Puncture Site Right Radial
[2025-05-14 10:35] LABS: Collection Type, Urine Catheter
[2025-05-14 10:48] LABS: Bilirubin,Urine Negative (Negative); Blood,Urine Negative (Negative); Clarity,Urine Clear (Clear/Hazy); Color,Urine Yellow (Lt Yel-Yel); Glucose, Urine Negative (Negative); Hyaline Casts,Urine < 1 /hpf (0-1); Ketones,Urine Negative (Negative); Leukocyte Esterase,Urine Negative (Negative); Nitrite,Urine Negative (Negative); PH,Urine 6.5 (5.0-7.0); Protein,Urine Negative (Neg - Trace); RBC,Urine 1 /hpf (0-3); Specific Gravity,Urine 1.020 (1.001-1.035); Squamous Epithelial Cell,Urine < 1 /hpf (0-5); Urobilinogen,Urine Negative mg/dL (0.0-1.0); WBC,Urine 1 /hpf (0-5)
[2025-05-14 11:56] LABS: Alanine Aminotransferase 27 U/L (10-49); Albumin, Serum 3.4 gm/dL (3.4-4.8); Albumin/Globulin Ratio 1.3 (1.2-2.2); Alkaline Phosphatase 121 U/L (46-116); Anion Gap 11 (7-16); Aspartate Amino Transferase 35 U/L (0-34); BUN/Creatinine Ratio 11 Ratio (12-20); Bilirubin,Total 0.2 mg/dL (0.3-1.2); Blood Urea Nitrogen 14 mg/dL (9-23); Calcium 8.0 mg/dL (8.3-10.6); Calcium (Corrected) 8.5 mg/dL (8.5-10.1); Carbon Dioxide 23.6 mMol/L (20.0-31.0); Chloride 106 mMol/L (98-107); Creatinine (Component) 1.3 mg/dL (0.6-1.3); Estimated Creatinine Clearance 1.5 mL/min (>60); Globulin 2.6 gm/dL (2.3-3.5); Glucose 144 mg/dL (74-106); Magnesium 2.6 mg/dL (1.6-2.6); Osmolality,Calculated 284 (275-295); Potassium 5.0 mMol/L (3.4-5.1); Sodium 141 mMol/L (136-145); Total Protein 6.0 gm/dL (5.7-8.2); Troponin I < 0.020 ng/mL (0.0-0.045); eGFR 45 See Note
[2025-05-14 12:16] LABS: Amphetamine/Methamp Scrn,U Negative (Negative); Barbiturate Screen,Urine Negative (Negative); Benzodiazepines Screen,Urine Negative (Negative); Benzoylecgonine Screen, Ur Negative (Negative); Fentanyl Screen,Urine Negative (Negative); Opiate Screen,Urine Negative (Negative); THC Screen,Urine Negative (Negative)
[2025-05-14 13:16] LABS: Basophils # (Auto) 0.0 Thou/mm3 (0.0-0.2); Basophils % (Auto) 0 % (0-2.5); Eosinophils # (Auto) 0.0 Thou/mm3 (0.0-0.5); Eosinophils % (Auto) 0 % (0-10); Hematocrit 36.4 % (36.0-46.0); Hemoglobin 12.3 g/dL (12.0-16.0); Immature Granulocytes Auto 0.07 Thou/mm3 (0.00-0.00); Lymphocytes # (Auto) 0.8 Thou/mm3 (1.0-4.8); Lymphocytes % (Auto) 5 % (10-50); Mean Corpuscular HGB Conc 33.8 g/dl (31.0-37.0); Mean Corpuscular Hemoglobin 33.3 pg (25.0-35.0); Mean Corpuscular Volume 99 fL (80-100); Monocytes # (Auto) 0.6 Thou/mm3 (0.0-0.8); Monocytes % (Auto) 4 % (0-12); Neutrophils # (Auto) 14.2 Thou/mm3 (1.8-7.7); Neutrophils % (Auto) 90 % (37-80); Nucleated Red Blood Cell # 0.00 Thou/mm3 (0.00-0.00); Nucleated Red Blood Cell % 0 /100 WBC (0); Platelet Count 168 Thou/mm3 (140-440); RDW Standard Deviation 48.6 fL (36.4-46.3); Red Blood Count 3.69 Miln/mm3 (4.00-5.20); White Blood Count 15.8 Thou/mm3 (3.6-11.0)
[2025-05-14] MEDS: cefTRIAXone/D5w 1gm IV premix 1 GM/50 ML BAG IV (13:16)
[2025-05-14 13:27] LABS: Procalcitonin 0.34 ng/ml (0.0-0.49)
[2025-05-14 13:34] LABS: INR 1.1 (0.9-1.3); Partial Thromboplastin Time 28.8 Seconds (22.0-36.0); Prothrombin Time 11.6 Seconds (9.0-12.2)
[2025-05-14 13:35] LABS: D-Dimer 493 ng/mL (<600)
[2025-05-14 13:39] LABS: B-Type Natriuretic Peptide 126 pg/mL (0-100)
[2025-05-14] MEDS: AZITHROMYCIN INJ 500 MG in SODIUM CHLORIDE 0.9% 250 ML 250 ML 250 MG IV (14:33)
[2025-05-14] MEDS: VANCOMYCIN/WATER 1GM IVPB 200 ML IV (15:00)
[2025-05-14 15:35] LABS: Lactate (Lactic Acid) 4.5 mMol/L (0.4-2.0)
[2025-05-14 15:58] LABS: Thyroid Stimulating Hormone 1.43 uIU/mL (0.55-4.78)
--- NOTE | 2025-05-14 16:19 | ESHP_ITS ---
<Statement entered by Manish Fine MD - 05/15/25 11:18> Patient was examined and case was reviewed with team including attending physician. Note reviewed, I agree with most of its contents and agree with the patient's care. 70 y/o F with PMHx of Down syndrome, seizures, asthma, and hypothyroidism who was brought to the ED due to hypoxia. Per the caregiver patient for the past few days has been breathing differently and not having enough PO intake which is odd behavior for her, per caregive she is usually prone to pneumonias and UTIs. At the home patient was saturating around the 70s-80s and lethargic and was brought here, she was given breathing treatments at the home but was not improving. In the ED patient met sepsis criteria. Patient was started on Vancomycin and Zosyn. After admission patients MAPs dropped below 65, ~50s and was upgraded to the ICU for pressor support after >3L of IVF resucitation. Manish Fine MD PGY-2 Documentation for date of: 05/14/25 HPI History of Present Illness History of present illness: The patient is a poor historian. History was primarily obtained through chart review, and additional information was provided by the correction rail engineer, Manjinder. 70-year-old female with past medical history of Down syndrome, seizures, asthma, and hypothyroidism, who presented to the ED on 05/14/2025 via ambulance from a residential correction due to shortness of breath. Patient woke up today with lethargy and excess phlegm and shortness of breath. patient was at her baseline yesterday and did not exhibit any symptoms until today. Per EMS, the patient was receiving a breathing treatment at the scene and was given additional treatment en route to the hospital. Her oxygen saturation was 88%. In the ED, sepsis alert was called for T 96.8F, BP 89/59 and MAP <64. Patient continued to be hypotensive (70/42, MAP 58) and hypothermic (96.6F) despite 3 L of fluids and bear hugger. ED course: - Vitals: BP 97/56, HR 93, RR 16, T 99.9F, O2 sat 93 nasal cannula at 4 flow rate - Labs: WBC 15.8, Hgb 12.3; ABG: pH 7.41, pCO2 45, pO2 52, HCO3 28, O2 saturation 86; Sodium 141, Potassium 5.0, Chloride 106, HCO3 23.6, eGFR 45, glucose 144, AST 35, ALT 27, ALP 121, BNP 126. UA negative. - Imaging: CXR showed possible early bilateral perihilar pneumonia. - Treatment: 3L IV Fluids (NS), Ceftraxone 1 gm x1, Azithromycine 500 mg x1. Review of Systems Review of Systems ROS Unobtainable: unobtainable due to medical condition Past Medical History Past Medical History Comments PMH COMMENT: Past medical history: as above Family history: unable to obtain Surgical history: unable to obtain Social history: lives in residential correction Medications: aspirin 81 mg, calcium carbonate-vitamin D3, cranberry extract 500 mg, Docusate 100 mg, Levetiracetam 1000 mg, Levothyroxine 75 mg, loratadine 10 mg, Montelukast 10mg, quetiapine 100mg, polyethylene glycole Allergies: no known allergies Exam Vital Signs Temp Pulse Resp BP Pulse Ox O2 Del Method O2 Flow Rate 96.7 F L 68 14 102/60 97 Oxy Mask 2 05/14/25 16:00 05/14/25 16:00 05/14/25 16:00 05/14/25 16:00 05/14/25 16:00 05/14/25 16:00 05/14/25 16:00 Narrative Exam Physical Exam General: Ill appearing, lethargic. HEENT: Normocephalic, atraumatic. Heart: Regular rate and rhythm, no murmurs. Lungs: Unable to auscultate lung sounds in the posterior chest due to patient positioning. However, lung sounds were clear to auscultation bilaterally in the anterior chest. Abdomen: Soft, nondistended, nontender. No guarding or rebound tenderness. Neurologic: Responds to tactile stimuli only. Extremities: No edema. Skin: No rash or ecchymoses. Results: Labs 05/15/25 05:09 05/15/25 05:09 Labs: Short CBC 05/14/25 Range/Units 13:12 WBC 15.8 H (3.6-11.0) Thou/mm3 Hgb 12.3 (12.0-16.0) g/dL Hct 36.4 (36.0-46.0) % Plt Count 168 (140-440) Thou/mm3 BMP 05/14/25 11:19 Sodium 141 Potassium 5.0 Chloride 106 Carbon Dioxide 23.6 BUN 14 Creatinine 1.3 Glucose 144 H Calcium 8.0 L Cardiac Enzymes 05/14/25 Range/Units 11:19 Troponin I < 0.020 (0.0-0.045) ng/mL Liver Function 05/14/25 Range/Units 11:19 Total Bilirubin 0.2 L (0.3-1.2) mg/dL AST 35 H (0-34) U/L ALT 27 (10-49) U/L Alkaline Phosphatase 121 H (46-116) U/L Albumin 3.4 (3.4-4.8) gm/dL Urine 05/14/25 Range/Units 10:20 Urine Color Yellow (Lt Yel-Yel) Urine Clarity Clear (Clear/Hazy) Urine pH 6.5 (5.0-7.0) Ur Specific [place] 1.020 (1.001-1.035) Urine Protein Negative (Neg - Trace) Urine Glucose (UA) Negative (Negative) ABG Interpretation ABG results: 05/14/25 10:03 ABG pH 7.41 ABG pCO2 45 ABG pO2 52 L* ABG HCO3 29 H ABG O2 Saturation 86 L ABG Base Excess 3 Quality Measures Quality Measures none Advance care planning discussed with:: patient and other (correction rail engineer/caregiver) Medications Home Medications and Allergies Home Medications ?Medication ?Instructions ?Recorded ?Confirmed ?Type aspirin 81 mg chewable tablet 81 mg PO DAILY Elevated Lipids 09/23/23 05/14/25 History calcium 600 mg (as 1 tab PO BID 09/23/23 History carbonate)-vitamin D3 10 mcg (400 unit) tablet docusate sodium 100 mg capsule 100 mg PO BID Constipat ion 09/23/23 05/14/25 History levothyroxine 75 mcg tablet 75 mcg PO DAILY 09/23/23 0 05/14/25 History loratadine 10 mg tablet 10 mg PO DAILY 09/23/2305/04 History montelukast 10 mg tablet 10 mg PO DAILY 09/23/2305/04 History quetiapine 100 mg tablet 100 mg PO HS 09/23/23 History cranberry extract 500 mg capsule 500 mg PO QDAY 05/14/25 History (Cranberry Concentrate) levetiracetam 500 mg 1,000 mg PO QMORNING 4 05/14/25 History tablet,extended release 24 hr (Keppra XR) methenamine hippurate 1 gram 1 g PO QDAY 08/10/2405/04 History tablet (Hiprex) polyethylene glycol 3350 17 17 g PO QDAY 03/13/2505/04 History gram/dose oral powder Allergies Allergy/AdvReac Type Severity Reaction Status Date / Time No Known Allergies Allergy Unverified 03/12/25 16:06 Visit Medications Acetaminophen (Acetaminophen 325 Mg Tablet) 650 mg PO Q6H PRN PRN Reason: Fever >100.4 Stop: 06/13/25 14:09 Acetaminophen (Acetaminophen 325 Mg Tablet) 650 mg PO Q6HR PRN PRN Reason: PAIN SCALE 1-3 (mild Stop: 06/13/25 14:35 Aspirin (Aspirin 81 Mg Chew) 81 mg PO DAILY JERRY Stop: 06/13/25 15:44 Last Admin: 05/14/25 16:09 Dose: Not Given Piperacillin/Tazobactam/Dextrose (Zosyn) 3.375 gm in 50 mls @ 12.5 mls/hr IV Q8HR JERRY Stop: 05/21/25 21:59 Vancomycin HCl (Vancomycin/Water 1gm Ivpb) 200 mls @ 120 mls/hr IV X1 ONE Stop: 05/14/25 16:24 Last Admin: 05/14/25 15:00 Dose: 120 mls/hr Sodium Chloride (Ns) 1,000 mls @ 999 mls/hr IV .Q1H1M ONE Stop: 05/14/25 16:51 Levetiracetam (Levetiracetam Inj 100 Mg/Ml Vial 5ml) 1,000 mg IVP Q12HR JERRY Stop: 06/13/25 20:59 Levothyroxine Sodium (Levothyroxine Inj 100 Mcg Vial) 56 mcg IV QDAY JERRY Stop: 06/13/25 16:14 Montelukast Sodium (Montelukast Sodium 10 Mg Tablet) 10 mg PO QPM JERRY Stop: 06/13/25 20:59 Pharmacy Consult (Vancomycin Pharmacy To Dose 1 Each Each) 1 each IV QDAY PRN PRN Reason: PROTOCOL Stop: 06/13/25 14:29 Quetiapine Fumarate (Quetiapine Fumarate 100 Mg Tablet) 100 mg PO HS JERRY Stop: 06/13/25 20:59 Discontinued Medications Acetaminophen (Acetaminophen 325 Mg Tablet) 650 mg PO Q6H PRN PRN Reason: Fever >101.5 Stop: 06/13/25 14:09 Sodium Chloride (Ns) 1,000 mls @ 999 mls/hr IV .Q1H1M ONE Stop: 05/14/25 10:59 Last Infusion: 05/14/25 12:03 Dose: Infused Sodium Chloride (Ns) 1,000 mls @ 999 mls/hr IV .Q1H1M ONE Stop: 05/14/25 13:38 Last Infusion: 05/14/25 13:49 Dose: Infused Ceftriaxone Sodium/Dextrose (Rocephin/D5w 1gm Iv Premix) 1 gm in 50 mls @ 100 mls/hr IV QDAY JERRY Stop: 05/21/25 12:55 Last Infusion: 05/14/25 14:36 Dose: Infused Azithromycin 500 mg/ Sodium (Chloride) 250 mls @ 250 mls/hr IV QDAY JERRY Stop: 05/22/25 08:59 Azithromycin 500 mg/ Sodium (Chloride) 250 mls @ 250 mls/hr IV X1 ONE Stop: 05/14/25 14:14 Last Infusion: 05/14/25 15:41 Dose: Infused Piperacillin/Tazobactam/Dextrose (Zosyn) 3.375 gm in 50 mls @ 100 mls/hr IV X1 ONE Stop: 05/14/25 14:59 Last Admin: 05/14/25 15:41 Dose: Not Given Levetiracetam (Levetiracetam 250 Mg Tablet) 1,000 mg PO QAM JERRY Stop: 06/13/25 15:44 Levothyroxine Sodium (Levothyroxine Sodium 25 Mcg Tablet) 75 mcg PO AC JERRY Stop: 06/13/25 15:44 Last Admin: 05/14/25 16:10 Dose: Not Given Assessment & Plan Plan 70-year-old female with past medical history of Down syndrome, asthma, hypothyroidism, and seizure disorder was admitted for acute hypoxic respiratory failure likely secondary to community-acquired pneumonia, sepsis alert was called for hypotension despite aduate fluid resusciation, admitted to ICU. #Sepsis #Acute hypoxic respiratory failure, secondary to #Community acquired pneumonia Patient met 2/4 SIRS criteria (HR 102, WBC 15.8) with a likely infectious source identified as pneumonia. Also met criteria for sepsis. Lactic acid 4.5. Procalcitonin 0.34, suggesting a bacterial etiology. Hypotension persisted despite adequate fluid resuscitation (3L of IV fluids). Influenza A, B and COVID-19 testing were negative. Requiring OxyMask at 2L and does not use home oxygen. Plan: - Start Vancomycin per pharm dosing for coverage of MRSA and resistant pathogens. - Start Zosyn (Piperacillin/Tazobactam) 3.375 grams IV for broad-spectrum coverage against typical and resistant gram-negative pathogens. - Pending blood culture. - Continue oxygen therapy via OxyMask at 2L. - Monitor respiratory status closely, considering potential escalation if hypoxia worsens. - Continue to monitor lactate levels and other markers of sepsis and organ function. Chronic diseases: #Down syndrome #History of asthma #Hypothyroidism Pending TSH level Plan: - Home dose of levothyroxine is 75 mcg PO daily - Started on IV levothyroxine 56 mcg daily #Seizures Seizures precautions ordered. Plan: - Continued home dose of Keppra XR 1000 mg PO daily to IV form Health Maintenance: Dispo: ICU DVT prophylaxis: heparin 5000 GI prophylaxis: none Diet: NPO Lines: Peripheral IV CODE STATUS: FULL Patient plan of care was discussed with the senior resident, Dr. Thomas, and attending physician, Dr. Ruiz. Tita Britt DO Attending Provider Attestation/Addendum Jodie Marshall DO, attest that I was physically present for the torres portions of the service and evaluated the patient with the resident and I reviewed and discussed the case with the resident and agree with the resident's findings and plans of care as documented above Patient is a 70-year-old female with past medical history of Down syndrome, seizures, asthma, hypothyroid and aspiration pneumonia who was brought from the ED due to worsening shortness of breath. Patient was noted to be having worsening lethargy. No machine operator general at bedside at time of evaluation. History taken from chart review. Patient was found to have PO2 of 88% and sepsis alert was called in ED due to hypotension and hyperthermia. Patient has received 3 L of IV fluids and currently on 2 L oxime mask. She is noted to have scattered rhonchi on exam. Patient is somnolent and not following any commands. Patient was admitted to telemetry for further workup medical management of community- acquired pneumonia. However, patient's blood pressure continued to downtrend despite IV fluid hydration. Case is discussed with ICU and plans to transfer patient to ICU for vasopressor support due to persistent hypotension.
--- NOTE | 2025-05-14 17:11 | PC.NURSE ---
CALLED DR. CABAN AND NOTIFIED HER THAT THIS PT B/P STILL LOW (70/42 MAP 58, TEMP 96.6) AFTER THE 3RD LITER IF NS. ARSH CRUZ REPORTS THAT SHE WILL GET BACK TO ME WITH NEW ORDERS
[2025-05-14] MEDS: Norepinephrine/D5W 8mg/250ml 8 MG/250 ML BAG 5.996 MG IV (17:40)
--- NOTE | 2025-05-14 17:40 | XR_ITS ---
Examination: AP chest single view TECHNIQUE: AP portable supine chest single view. Date and time: May 14, 2025, 1750 hours Comparison May 14, 2025 1101 hours INDICATIONS: Post central line placement. FINDINGS: Mild enlargement cardiac contour. Prominent vascular congestion. Right internal jugular central line tip SVC satisfactory position, no pneumothorax IMPRESSION: Right internal jugular central line tip SVC satisfactory position, no pneumothorax Perihilar edema and/or pneumonia, clinical correlation advised
--- NOTE | 2025-05-14 17:52 | PD.EDADDENDU ---
Emergency Room Addendum Addendum Narrative: 1755h: Patient's blood pressure was noted to be dropping to 70s systolic despite 3 L total of normal saline boluses. Hospitalist has been made aware. Believe patient requiring pressor support. Placed a right sided IJ triple-lumen with ultrasound guidance using Seldinger technique under sterile environment. Confirmation was confirmed by blood flow obtained from all ports and easily flushing all ports, as well as portable chest x-ray. Levophed has been started. Was started at 0.07 mics per kilo and was titrated up to 0.1 mics per kilo due to blood pressure being in the 60s systolic. This improved blood pressure to 88/50. ICU team currently evaluating patient. Care returned to hospitalist/ICU team.
[2025-05-14 18:24] LABS: Reflex Lactate? Y
[2025-05-14 18:27] LABS: Lactate (Lactic Acid) 2.0 mMol/L (0.4-2.0)
[2025-05-14] MEDS: HEPARIN SOD INJ 5000 UNIT/ML VIAL SC (18:43)
--- NOTE | 2025-05-14 18:47 | PC.CC ---
Pt is a 70 yo female who entered the ER on 05/14/25. Pt is being admitted for SOB. Pt is connected to [facility] and her worker is Neda Tee [phone]. It was reported by caregiver Manjinder Camacho [phone]. Manjinder reported the pts PCP is Dr. Rosas, pharmacy is [facility] in [place] but for emergency purposes she will use [facility] on [address]. Pt decision maker is [facility] and his worker is Neda Tee [phone]. As per the caregiver, Manjinder, pt is a Full Code, does not have a POLST or Advance Directive on file. Pt is diagnosed with Thyroid issues, Seizures and Down Syndrome with asthma. As per caregiver, the pt is also diagnosed with bipolar and her psychiatrist is Dr. Camp located in [place]. Pt does not use O2 at home and uses a wheel chair to ambulate for the past 2 months. Prior to that, the pt was able to fully ambulate on her own. Pt does not do her own ADLs and the caregiver and staff do that for her. Pt sees a specialist for [place] which caregiver belives she sees Dr. Pedersen. Per caregiver, the pt will return to the care home once medically cleared. d/c plan: return to care home Decision Maker: [facility] eNda Tee [phone] Rosas; Psychiatrist Dr. Camp.
--- NOTE | 2025-05-14 18:48 | ESCONSULT_ITS ---
HPI Data of Consult Requesting Physician: Jodie Ruiz DO Admitting Provider: Jodie Ruiz DO Attending Provider: Loree Solano DO Primary Care Provider: Rolando Rosas MD Consult Narrative Reason for consult: Productive cough and lethargy x 1 day History of present illness: Patient is a 70-year-old female with past medical history of Down syndrome, seizures, asthma, and hypothyroidism, who presented to the ED on 05/14/2025 [facility] due to shortness of breath. Per report patient woke up today with lethargy and excess phlegm and shortness of breath. Productive cough started yesterday and increased today. Per EMS, the patient was receiving a breathing treatment at the scene and was given additional treatment en route to the hospital. Her oxygen saturation was 88%. Patient is reportedly conserved. According to [facility] patient's baseline is speaking a few word phrases at a time. Initial set of vitals included BP 97/56, HR 93, RR 16, T 99.9F, O2 sat 93 nasal cannula at 4 flow rate. Labs included WBC 15.8. ABG showed pH 7.41, pCO2 45, pO2 52, HCO3 28, O2 saturation 86. Sodium 141, Potassium 5.0, Chloride 106, HCO3 23.6, eGFR 45, creatinine 1.3, glucose 144, AST 35, ALT 27, ALP 121, BNP 126. Troponin negative. UA negative. CXR showed possible early bilateral perihilar pneumonia. In the ED, sepsis alert was called for T 96.8F, BP 89/59 and MAP <64. Patient continued to be hypotensive (70/42, MAP 58) and hypothermic (96.6F) despite 3L of fluids and bear hugger. Patient was initially admitted to the floor team then subsequently upgraded to the ICU for pressor support in the setting of septic shock. cc:: cc: Jodie Ruiz DO Past Medical History Past Medical History Comments PMH COMMENT: Past medical history: as above Family history: unable to obtain Surgical history: unable to obtain Social history: [facility] Medications: aspirin 81 mg, calcium carbonate-vitamin D3, cranberry extract 500 mg, Docusate 100 mg, Levetiracetam 1000 mg, Levothyroxine 75 mg, loratadine 10 mg, Montelukast 10mg, quetiapine 100mg, polyethylene glycole Allergies: no known allergies Exam Vital Signs Temp Pulse Resp BP Pulse Ox O2 Del Method O2 Flow Rate 97.4 F 69 16 131/68 H 100 Oxy Mask 2 05/14/25 20:31 05/14/25 20:31 05/14/25 20:31 05/14/25 20:31 05/14/25 20:31 05/14/25 20:05/14/25 19:00 Narrative Exam Physical Exam General: Lethargic. Appears uncomfortable. Under Gricelda hugger. HEENT: Alopecia noted. Normocephalic, atraumatic, mucous membranes moist. Eyes with yellow crusting along eyelashes. Wearing OxyMask. Heart: Regular rate and rhythm, normal S1 and S2, no murmurs. Lungs: Slight rhonchi in the lower lung hodges. Abdomen: Soft, nondistended, nontender, positive bowel sounds. ?No guarding or rebound tenderness. Neurologic: GCS 11. Eyes are open and withdraws to stimulus but not following commands or verbalizing comprehensible words. Extremities: No edema. Cap refill 2-3 sec. Skin: No rash or ecchymoses. Results Labs 05/16/25 05:34 05/16/25 05:34 Labs: Short CBC 05/14/25 Range/Units 13:12 WBC 15.8 H (3.6-11.0) Thou/mm3 Hgb 12.3 (12.0-16.0) g/dL Hct 36.4 (36.0-46.0) % Plt Count 168 (140-440) Thou/mm3 BMP 05/14/25 11:19 Sodium 141 Potassium 5.0 Chloride 106 Carbon Dioxide 23.6 BUN 14 Creatinine 1.3 Glucose 144 H Calcium 8.0 L Cardiac Enzymes 05/14/25 Range/Units 11:19 Troponin I < 0.020 (0.0-0.045) ng/mL Liver Function 05/14/25 Range/Units 11:19 Total Bilirubin 0.2 L (0.3-1.2) mg/dL AST 35 H (0-34) U/L ALT 27 (10-49) U/L Alkaline Phosphatase 121 H (46-116) U/L Albumin 3.4 (3.4-4.8) gm/dL Urine 05/14/25 Range/Units 10:20 Urine Color Yellow (Lt Yel-Yel) Urine Clarity Clear (Clear/Hazy) Urine pH 6.5 (5.0-7.0) Ur Specific [place] 1.020 (1.001-1.035) Urine Protein Negative (Neg - Trace) Urine Glucose (UA) Negative (Negative) ABG Interpretation ABG results: 05/14/25 10:03 ABG pH 7.41 ABG pCO2 45 ABG pO2 52 L* ABG HCO3 29 H ABG O2 Saturation 86 L ABG Base Excess 3 Quality Measures Quality Measures none Advance care planning discussed with:: patient Medications Home Medications and Allergies Home Medications ?Medication ?Instructions ?Recorded ?Confirmed ?Type aspirin 81 mg chewable tablet 81 mg PO DAILY Elevated Lipids 09/23/23 05/14/25 History calcium 600 mg (as 1 tab PO BID 09/23/23 History carbonate)-vitamin D3 10 mcg (400 unit) tablet docusate sodium 100 mg capsule 100 mg PO BID Constipat ion 09/23/23 05/14/25 History levothyroxine 75 mcg tablet 75 mcg PO DAILY 09/23/23 0 05/14/25 History loratadine 10 mg tablet 10 mg PO DAILY 09/23/2305/04 History montelukast 10 mg tablet 10 mg PO DAILY 09/23/2305/04 History quetiapine 100 mg tablet 100 mg PO HS 09/23/23 History cranberry extract 500 mg capsule 500 mg PO QDAY 05/14/25 History (Cranberry Concentrate) levetiracetam 500 mg 1,000 mg PO QMORNING 4 05/14/25 History tablet,extended release 24 hr (Keppra XR) methenamine hippurate 1 gram 1 g PO QDAY 08/10/2405/04 History tablet (Hiprex) polyethylene glycol 3350 17 17 g PO QDAY 03/13/2505/04 History gram/dose oral powder Allergies Allergy/AdvReac Type Severity Reaction Status Date / Time No Known Allergies Allergy Unverified 03/12/25 16:06 Visit Medications Acetaminophen (Acetaminophen 325 Mg Tablet) 650 mg PO Q6H PRN PRN Reason: Fever >100.4 Stop: 06/13/25 14:09 Acetaminophen (Acetaminophen 325 Mg Tablet) 650 mg PO Q6HR PRN PRN Reason: PAIN SCALE 1-3 (mild Stop: 06/13/25 14:35 Aspirin (Aspirin 81 Mg Chew) 81 mg PO DAILY [facility] Stop: 06/13/25 15:44 Last Admin: 05/14/25 16:09 Dose: Not Given Heparin Sodium (Porcine) (Heparin Sod Inj 5000 Unit/Ml Vial) 5,000 unit SC Q8HR JERRY Stop: 05/28/25 17:59 Last Admin: 05/14/25 21:38 Dose: Not Given Piperacillin/Tazobactam/Dextrose (Zosyn) 3.375 gm in 50 mls @ 12.5 mls/hr IV Q8HR [facility] Stop: 05/21/25 21:59 Last Admin: 05/14/25 22:08 Dose: 12.5 mls/hr Norepinephrine/Dextrose (Levophed In D5w 8mg/250ml) 8 mg in 250 mls @ 5.996 mls/hr IV .Q24H PRN; Protocol PRN Reason: PER PROTOCOL Stop: 06/13/25 17:32 Last Titration: 05/14/25 22:30 Dose: 0.03 mcg/kg/min, 3.598 mls/hr Levetiracetam (Levetiracetam Inj 100 Mg/Ml Vial 5ml) 1,000 mg IVP Q12HR [facility] Stop: 06/13/25 20:59 Last Admin: 05/14/25 21:00 Dose: 1,000 mg Levothyroxine Sodium (Levothyroxine Inj 100 Mcg Vial) 56 mcg IV QDAY JERRY Stop: 06/13/25 16:14 Last Admin: 05/14/25 18:43 Dose: 56 mcg Montelukast Sodium (Montelukast Sodium 10 Mg Tablet) 10 mg PO QPM [facility] Stop: 06/13/25 20:59 Pharmacy Consult (Vancomycin Pharmacy To Dose 1 Each Each) 1 each IV QDAY PRN PRN Reason: PROTOCOL Stop: 06/13/25 14:29 Discontinued Medications Acetaminophen (Acetaminophen 325 Mg Tablet) 650 mg PO Q6H PRN PRN Reason: Fever >101.5 Stop: 06/13/25 14:09 Sodium Chloride (Ns) 1,000 mls @ 999 mls/hr IV .Q1H1M ONE Stop: 05/14/25 10:59 Last Infusion: 05/14/25 12:03 Dose: Infused Sodium Chloride (Ns) 1,000 mls @ 999 mls/hr IV .Q1H1M ONE Stop: 05/14/25 13:38 Last Infusion: 05/14/25 13:49 Dose: Infused Ceftriaxone Sodium/Dextrose (Rocephin/D5w 1gm Iv Premix) 1 gm in 50 mls @ 100 mls/hr IV QDAY JERRY Stop: 05/21/25 12:55 Last Infusion: 05/14/25 14:36 Dose: Infused Azithromycin 500 mg/ Sodium (Chloride) 250 mls @ 250 mls/hr IV QDAY JERRY Stop: 05/22/25 08:59 Azithromycin 500 mg/ Sodium (Chloride) 250 mls @ 250 mls/hr IV X1 ONE Stop: 05/14/25 14:14 Last Infusion: 05/14/25 15:41 Dose: Infused Piperacillin/Tazobactam/Dextrose (Zosyn) 3.375 gm in 50 mls @ 100 mls/hr IV X1 ONE Stop: 05/14/25 14:59 Last Admin: 05/14/25 15:41 Dose: Not Given Vancomycin HCl (Vancomycin/Water 1gm Ivpb) 200 mls @ 120 mls/hr IV X1 ONE Stop: 05/14/25 16:24 Last Infusion: 05/14/25 16:57 Dose: Infused Sodium Chloride (Ns) 1,000 mls @ 999 mls/hr IV .Q1H1M ONE Stop: 05/14/25 16:51 Last Infusion: 05/14/25 16:57 Dose: Infused Norepinephrine Bitartrate (Levophed In Ns 16mg/250ml) 16 mg in 250 mls @ 2.998 mls/hr IV .Q24H PRN; Protocol PRN Reason: PER protocol Stop: 06/13/25 17:15 Levetiracetam (Levetiracetam 250 Mg Tablet) 1,000 mg PO QAM JERRY Stop: 06/13/25 15:44 Last Admin: 05/14/25 16:57 Dose: Not Given Levothyroxine Sodium (Levothyroxine Sodium 25 Mcg Tablet) 75 mcg PO AC JERRY Stop: 06/13/25 15:44 Last Admin: 05/14/25 16:10 Dose: Not Given Quetiapine Fumarate (Quetiapine Fumarate 100 Mg Tablet) 100 mg PO HS [facility] Stop: 06/13/25 20:59 Assessment & Plan Plan 70-year-old female with past medical history of Down syndrome, asthma, hypothyroidism, and seizure disorder was admitted for acute hypoxic respiratory failure likely secondary to community-acquired pneumonia, sepsis alert was called for hypotension despite aduate fluid resusciation, admitted to ICU. NEURO #Acute encephalopathy Most likely metabolic encephalopathy secondary to underlying sepsis. At this time do not strongly feel there is an indication for head CT, patient did not have any falls or trauma and physical exam does not reveal any abrasions or bruising or focal neurologic deficit. - Treat underlying sepsis - NPO for now #History of seizure disorder - Continued home dose of Keppra XR 1000 mg PO daily to IV form #History of Down Syndrome CARDIO #Shock, likely septic Patient had tachycardia with HR 102, leukocytosis WBC 15.8 with a likely infectious source identified as pneumonia. Lactic acid 4.5->2.0. Patient had hypothermia to 96.6. qSOFA score is 2 for decreased mentation and systolic BP <100. SOFA score identified as 6. (Initial SOFA Scores less than or equal to 9 predict less than or equal to 33.3% mortality) Procalcitonin 0.34, suggesting a non-bacterial etiology. Hypotension persisted despite adequate fluid resuscitation (3L of IV fluids). Influenza A, B and COVID-19 testing were negative. Requiring OxyMask at 2L and does not use home oxygen. Troponin was negative, BNP only slightly elevated at 126. - Continue norepinephrine support and wean to MAP >65 - Perform NICOM to assess for fluid responsiveness when patient comes up to ICU - Continue to monitor lactate levels and other markers of sepsis and organ function PULM #Acute hypoxic respiratory failure, secondary to #Community acquired pneumonia CXR showed early bilateral perihilar pneumonia, and patient has been having a productive cough. - Start Vancomycin per pharm dosing for coverage of MRSA and resistant pathogens. - Start Zosyn (Piperacillin/Tazobactam) 3.375 grams IV for broad-spectrum coverage against typical and resistant gram-negative pathogens. - Start azithromycin 500 mg IV qday for atypical pathogen coverage - Continue oxygen therapy via OxyMask at 2L. - Hydrocortisone 50 mg IV q6h - Draw VBG from central line brown port for SvO2 measurement #History of asthma - DuoNebs q6h - Hold home montelukast until able to take PO GI #AST elevation #Alkaline phosphatase elevation AST 35, likely fatty liver disease, as it is chronic. - Follow CMP NEPHRO #JESSICA, prerenal Likely in the setting of sepsis. Patient received 3L fluid resuscitation. -Follow renal panel #Lactic acidosis - resolved Initially LA was 4.5 downtrended to 2.0 -Continue pressor support to maintain MAP >65 URO #No active problems HEME #Leukocytosis Likely in the setting of sepsis. There is a left neutrophillic shift, indicating more likely infection. - Treat underlying sepsis as above - Follow CBC ENDO #History of hypothyroidism Home medication is levthyroxine 75 mcg qday. - Started on IV levothyroxine 56 mcg daily ID #Community acquired pneumonia CXR showed early bilateral perihilar pneumonia, and patient has been having a productive cough for about 1 day. Patient had tachycardia with HR 102, leukocytosis WBC 15.8 with initial lactic acid of 4.5. Became slightly hypothermic in ED at 96.6. - Start Vancomycin per pharm dosing for coverage of MRSA and resistant pathogens. - Start Zosyn (Piperacillin/Tazobactam) 3.375 grams IV for broad-spectrum coverage against typical and resistant gram-negative pathogens. - Start azithromycin 500 mg IV qday for atypical pathogen coverage - Pending blood cultures - Pending urine culture - Pending MRSA screen - Sputum gram stain and culture ordered MSK #No active problems SKIN #No active problems DVT prophylaxis: Lovenox 40 mg subQ GI prophylaxis: None Diet: NPO Rodriguez: Present [05/14/2025- ] Lines: Peripheral IV, Central IV Antibiotics: Zosyn [05/14- ], vancomycin [05/14- ], azithromycin [05/14- ] CODE STATUS: FULL Reason for ICU care: Septic shock requiring vasopressor support Patient plan of care was discussed with the attending chili pepper grinder, Dr. Solano. Marianne Hazel, PGY-3
[2025-05-14] MEDS: levETIRAcetam INJ 100 MG/ML VIAL 5ML 1000 MG IVP (21:00)
[2025-05-14] MEDS: PIPER/TAZO 3.375 GM PREMIX 3.375 GM/50 ML BAG IV (22:08)
[2025-05-15] VITALS (158 sets, daily range): BP systolic 49–162; BP diastolic 25–106; PULSE 56–136; RESP 10–33; TEMP 36.2–37.1; O2SAT 83–100; BMI 27.6
[2025-05-15 05:23] LABS: Basophils # (Auto) 0.1 Thou/mm3 (0.0-0.2); Basophils % (Auto) 1 % (0-2.5); Eosinophils # (Auto) 0.1 Thou/mm3 (0.0-0.5); Eosinophils % (Auto) 1 % (0-10); Hematocrit 36.3 % (36.0-46.0); Hemoglobin 11.9 g/dL (12.0-16.0); Immature Granulocytes Auto 0.10 Thou/mm3 (0.00-0.00); Lymphocytes # (Auto) 1.8 Thou/mm3 (1.0-4.8); Lymphocytes % (Auto) 18 % (10-50); Mean Corpuscular HGB Conc 32.8 g/dl (31.0-37.0); Mean Corpuscular Hemoglobin 32.3 pg (25.0-35.0); Mean Corpuscular Volume 99 fL (80-100); Monocytes # (Auto) 0.5 Thou/mm3 (0.0-0.8); Monocytes % (Auto) 5 % (0-12); Neutrophils # (Auto) 7.4 Thou/mm3 (1.8-7.7); Neutrophils % (Auto) 75 % (37-80); Nucleated Red Blood Cell # 0.00 Thou/mm3 (0.00-0.00); Nucleated Red Blood Cell % 0 /100 WBC (0); Platelet Count 165 Thou/mm3 (140-440); RDW Standard Deviation 48.7 fL (36.4-46.3); Red Blood Count 3.68 Miln/mm3 (4.00-5.20); White Blood Count 9.9 Thou/mm3 (3.6-11.0)
[2025-05-15 05:30] LABS: INR 1.0 (0.9-1.3); Prothrombin Time 11.1 Seconds (9.0-12.2)
[2025-05-15 05:41] LABS: Alanine Aminotransferase 17 U/L (10-49); Albumin, Serum 3.2 gm/dL (3.4-4.8); Albumin/Globulin Ratio 1.5 (1.2-2.2); Alkaline Phosphatase 103 U/L (46-116); Anion Gap 6 (7-16); Aspartate Amino Transferase 22 U/L (0-34); BUN/Creatinine Ratio 16 Ratio (12-20); Bilirubin,Total 0.3 mg/dL (0.3-1.2); Blood Urea Nitrogen 11 mg/dL (9-23); Calcium 7.5 mg/dL (8.3-10.6); Calcium (Corrected) 8.1 mg/dL (8.5-10.1); Carbon Dioxide 27.0 mMol/L (20.0-31.0); Cardiac Risk Estimate 2.7 RATIO (3.7-5.6); Chloride 111 mMol/L (98-107); Cholesterol 133 mg/dL (132-200); Creatinine (Component) 0.7 mg/dL (0.6-1.3); Estimated Creatinine Clearance 64.2 mL/min (>60); Globulin 2.1 gm/dL (2.3-3.5); Glucose 108 mg/dL (74-106); HDL Cholesterol 49 mg/dL (40-60); LDL Cholesterol,Calculated 66 mg/dL (0-130); Magnesium 2.3 mg/dL (1.6-2.6); Osmolality,Calculated 287 (275-295); Phosphorous 2.0 mg/dL (2.4-5.1); Potassium 3.8 mMol/L (3.4-5.1); Sodium 144 mMol/L (136-145); Total Protein 5.3 gm/dL (5.7-8.2); Triglycerides 92 mg/dL (30-150); eGFR > 60 See Note
[2025-05-15] MEDS: PIPER/TAZO 3.375 GM PREMIX 3.375 GM/50 ML BAG IV ×3 (06:15→21:38)
[2025-05-15] MEDS: HEPARIN SOD INJ 5000 UNIT/ML VIAL SC (06:16)
--- NOTE | 2025-05-15 07:23 | PC.NURSE ---
Received report from Christal HE and assumed care of patient. Dr Solano at [facility] and verbal order received to decrease Levophed to 0.02mcg/kg/min
--- NOTE | 2025-05-15 08:00 | XR_ITS ---
Examination: AP chest single view Technique one AP portable upright chest single view Date and time: May 15, 2025, 0915 hours Comparison May 14, 2025 INDICATIONS: Shortness of breath today. FINDINGS: Mild prominence cardiac contour Prominent vascular congestion Perihilar edema and/or pneumonia. Right internal jugular central line tip SVC satisfactory position IMPRESSION: Bilateral perihilar edema and/or pneumonia, clinical correlation advised
[2025-05-15] MEDS: ATROPINE SULF INJ 0.1 MG/ML SYR 10 ML 1 MG IV (08:24)
[2025-05-15] MEDS: HYDROCORTISONE SOD SUCC INJ 100 MG 2 ML VIAL 50 MG IV ×3 (08:53→17:45)
[2025-05-15] MEDS: levETIRAcetam INJ 100 MG/ML VIAL 5ML 1000 MG IVP ×2 (08:54→20:46)
[2025-05-15] MEDS: ENOXAPARIN SOD INJ 40 MG/0.4 ML SYRINGE SC (08:54)
[2025-05-15] MEDS: AZITHROMYCIN INJ 500 MG in SODIUM CHLORIDE 0.9% 250 ML 250 ML 250 MG IV (08:55)
--- NOTE | 2025-05-15 09:22 | CHAP ---
Patient did not respond to my voice but I gave encouragement, comfort and prayer.
[2025-05-15] MEDS: VANCOMYCIN/NS 750 MG IVPB 750 MG/150 ML BAG 120 MG IV ×2 (09:37→21:38)
[2025-05-15 10:27] LABS: Thyroid Stimulating Hormone 0.90 uIU/mL (0.55-4.78)
[2025-05-15 10:49] LABS: Base Excess, Venous -4 (-3-3); O2 Saturation, Venous 78 % (96-97); PCO2, Venous 45 mmHg (36-56); PO2, Venous 43 mmHg (15-58); pH, Venous 7.31 (7.33-7.66)
[2025-05-15] MEDS: Norepinephrine/D5W 8mg/250ml 8 MG/250 ML BAG 14.39 MG IV (11:49)
[2025-05-15] MEDS: ACETYLCYSTEINE RT SOL 10% 4 ML NEBU 3 ML INH ×2 (12:08→18:32)
[2025-05-15] MEDS: ALBUTEROL/IPRATROPIUM (Duoneb) RT SOL 3 ML NEBU INH ×2 (12:09→18:32)
--- NOTE | 2025-05-15 12:17 | PCS.ST ---
Swallow Evaluation completed. See report for details. Dysphagia 1, MT2 diet.
[2025-05-15] MEDS: RINGERS LACTATED 1000 ML 1,000 ML 999 ML IV (13:02)
[2025-05-15] MEDS: MIDODRINE 5 MG TABLET PO ×2 (13:18→21:52)
[2025-05-15 14:52] LABS: Partial Thromboplastin Time 40.5 Seconds (22.0-36.0)
--- NOTE | 2025-05-15 16:30 | ESPR_ITS ---
Documentation for date of: 05/15/25 Subjective Subjective Interval history: 70-year-old female with past medical history of Down syndrome, seizures, asthma, and hypothyroidism, who presented to the ED on 05/14/2025 via ambulance from a residential correction due to shortness of breath. Per report patient woke up today with lethargy, excess phlegm, and productive cough for 1 day. Per EMS, the patient was receiving a breathing treatment at the scene and was given additional treatment en route to the hospital. Her oxygen saturation was 88%. Patient is reportedly conserved. According to long-term patient's baseline is speaking a few word phrases at a time. Initial set of vitals included BP 97/56, HR 93, RR 16, T 99.9F, O2 sat 93 nasal cannula at 4 flow rate. Labs included WBC 15.8. ABG showed pH 7.41, pCO2 45, pO2 52, HCO3 28, O2 saturation 86. Sodium 141, Potassium 5.0, Chloride 106, HCO3 23.6, eGFR 45, creatinine 1.3, glucose 144, AST 35, ALT 27, ALP 121, BNP 126. Troponin negative. UA negative. CXR showed possible early bilateral perihilar pneumonia. In the ED, sepsis alert was called for T 96.8F, BP 89/59 and MAP <64. Patient continued to be hypotensive (70/42, MAP 58) and hypothermic (96.6F) despite 3L of fluids and bear hugger. Patient was initially admitted to the floor team then subsequently upgraded to the ICU for pressor support in the setting of septic shock. 05/15/2025: Patient was seen and examined this morning, was more alert however still mostly nonverbal. Patient had speech evaluation who passed patient for a dysphagia 1 pureed diet. No fevers overnight. This morning, patient had a bradycardic episode to 30s around 8:20, was given 1 mg atropine with resolution and increase in HR to 120s which subsequently normalized. On CXR, it was noted that patient has abnormal kathi texture on the rib cage. Review of prior CTs show similar, possible osteopenia versus bone sclerosis, will follow up with radiologist. Patient was found to be fluid responsive on the NICOM and was given 1L LR bolus. Patient was weaned off norepinephrine about 15:00. Started on midodrine 5 mg TID. Likely downgrade tomorrow to floors. Exam Vital Signs Temp Pulse Resp BP Pulse Ox O2 Del Method O2 Flow Rate 97.1 F 76 25 H 110/67 91 L Oxy Mask 4 05/15/25 12:00 05/15/25 15:20 05/15/25 15:20 05/15/25 15:06 05/15/25 15:18 05/15/25 12:00 05/15/25 12:12 Narrative Exam Physical Exam General: Awake, appears to make some eye contact. HEENT: Alopecia noted. Normocephalic, atraumatic, mucous membranes moist. Eyes with yellow crusting along eyelashes. Wearing OxyMask. Heart: Regular rate and rhythm, normal S1 and S2, no murmurs. Lungs: Slight rhonchi in the lower lung hodges. Abdomen: Soft, nondistended, nontender, positive bowel sounds. ?No guarding or rebound tenderness. Neurologic: GCS 11. Eyes are open and withdraws to stimulus but not following commands or verbalizing comprehensible words. Extremities: No edema. Cap refill 2 sec. Skin: No rash or ecchymoses. Objective Labs 05/16/25 05:34 05/16/25 05:34 Labs: Laboratory Results - last 24 hr 05/14/25 05/15/25 05/15/25 18:21 05:09 10:23 WBC 9.9 D RBC 3.68 L Hgb 11.9 L Hct 36.3 MCV 99 MCH 32.3 MCHC 32.8 RDW Std Deviation 48.7 H Plt Count 165 Neut % (Auto) 75 Lymph % (Auto) 18 [place] % (Auto) 5 Eos % (Auto) 1 Baso % (Auto) 1 Neut # (Auto) 7.4 Lymph # (Auto) 1.8 [place] # (Auto) 0.5 Eos # (Auto) 0.1 Baso # (Auto) 0.1 Immature Gran # (Auto) 0.10 H Absolute Nucleated RBC 0.00 Immature Gran % 1 H Nucleated RBC % 0 PT 11.1 INR 1.0 APTT VBG pH 7.31 L VBG pCO2 45 VBG pO2 43 VBG O2 Sat (Gisele) 78 L VBG Base Excess -4 L Sodium 144 Potassium 3.8 D Chloride 111 H Carbon Dioxide 27.0 Anion Gap 6 L BUN 11 Creatinine 0.7 D Estim Creat Clear Calc 64.2 eGFR > 60 BUN/Creatinine Ratio 16 Glucose 108 H Calculated Osmolality 287 Lactic Acid 2.0 Calcium 7.5 L Corrected Calcium 8.1 L Phosphorus 2.0 L Magnesium 2.3 Total Bilirubin 0.3 AST 22 ALT 17 Alkaline Phosphatase 103 Total Protein 5.3 L Albumin 3.2 L Globulin 2.1 L Albumin/Globulin Ratio 1.5 Triglycerides 92 Cholesterol 133 LDL Cholesterol, Calc 66 HDL Cholesterol 49 Cholesterol/HDL Ratio 2.7 L TSH 0.90 05/15/25 14:00 WBC RBC Hgb Hct MCV MCH MCHC RDW Std Deviation Plt Count Neut % (Auto) Lymph % (Auto) [place] % (Auto) Eos % (Auto) Baso % (Auto) Neut # (Auto) Lymph # (Auto) [place] # (Auto) Eos # (Auto) Baso # (Auto) Immature Gran # (Auto) Absolute Nucleated RBC Immature Gran % Nucleated RBC % PT INR APTT 40.5 H D VBG pH VBG pCO2 VBG pO2 VBG O2 Sat (Gisele) VBG Base Excess Sodium Potassium Chloride Carbon Dioxide Anion Gap BUN Creatinine Estim Creat Clear Calc eGFR BUN/Creatinine Ratio Glucose Calculated Osmolality Lactic Acid Calcium Corrected Calcium Phosphorus Magnesium Total Bilirubin AST ALT Alkaline Phosphatase Total Protein Albumin Globulin Albumin/Globulin Ratio Triglycerides Cholesterol LDL Cholesterol, Calc HDL Cholesterol Cholesterol/HDL Ratio TSH ABG Interpretation ABG results: 05/14/25 05/15/25 10:03 10:23 ABG pH 7.41 ABG pCO2 45 ABG pO2 52 L* ABG HCO3 29 H ABG O2 Saturation 86 L ABG Base Excess 3 VBG pH 7.31 L VBG pCO2 45 VBG pO2 43 VBG Base Excess -4 L Quality Measures Quality Measures none Advance care planning discussed with:: patient Assessment & Plan Assessment Current Active Medications: Generic Name Dose Route Start Last Admin Trade Name Freq PRN Reason Stop Dose Admin Acetaminophen 650 mg 05/14/25 14:36 Acetaminophen 325 Mg Tablet PO 06/13/25 14:09 Q6H PRN Fever >100.4 Acetaminophen 650 mg 05/14/25 14:36 Acetaminophen 325 Mg Tablet PO 06/13/25 14:35 Q6HR PRN PAIN SCALE 1-3 (mild Acetylcysteine 3 ml 05/15/25 13:00 05/15/25 12:08 Acetylcysteine Rt Shannon 10% 4 Ml Nebu INH 06/14/25 12:59 3 ml Q6HRRT JERRY Administration Albuterol/Ipratropium 3 ml 05/15/25 13:00 05/15/25 12:09 Albuterol/Ipratropium (Duoneb) Rt Shannon 3 Ml Nebu INH 06/14/25 12:59 3 ml Q6HRRT JERRY Administration Aspirin 81 mg 05/14/25 15:45 05/15/25 08:49 Aspirin 81 Mg Chew PO 06/13/25 15:44 Not Given DAILY JERRY Enoxaparin Sodium 40 mg 05/15/25 09:00 05/15/25 08:54 Enoxaparin Sod Inj 40 Mg/0.4 Ml Syringe SC 05/29/25 08:59 40 mg QDAY JERRY Administration Hydrocortisone Sodium Succinate 50 mg 05/15/25 07:45 05/15/25 11:51 Hydrocortisone Sod Succ Inj 100 Mg 2 Ml Vial IV 06/14/25 07:44 50 mg Q6HR JERRY Administration Piperacillin/Tazobactam/Dextrose 3.375 gm in 50 mls @ 12.5 mls/hr 05/14/25 22:00 05/15/25 13:18 Zosyn IV 05/21/25 21:59 12.5 mls/hr Q8HR JERRY Administration Vancomycin/Sodium Chloride 750 mg in 150 mls @ 120 mls/hr 05/15/25 10:00 05/15/25 11:12 Vancomycin/Ns 750 Mg Ivpb IV 05/22/25 09:59 Infused Q12H JERRY Infusion Protocol Azithromycin 500 mg/ Sodium 250 mls @ 250 mls/hr 05/15/25 09:00 05/15/25 11:12 Chloride IV 05/22/25 08:59 Infused QDAY JERRY Infusion Levetiracetam 1,000 mg 05/14/25 21:00 05/15/25 08:54 Levetiracetam Inj 100 Mg/Ml Vial 5ml IVP 06/13/25 20:59 1,000 mg Q12HR JERRY Administration Levothyroxine Sodium 56 mcg 05/14/25 16:15 05/15/25 08:59 Levothyroxine Inj 100 Mcg Vial IV 06/13/25 16:14 56 mcg QDAY JERRY Administration Midodrine 5 mg 05/15/25 14:00 05/15/25 13:18 Midodrine 5 Mg Tablet PO 09/11/25 13:59 5 mg TID JERRY Administration Montelukast Sodium 10 mg 05/14/25 21:00 Montelukast Sodium 10 Mg Tablet PO 06/13/25 20:59 QPM [facility] Pantoprazole Sodium 40 mg 05/15/25 09:00 05/15/25 08:54 Pantoprazole Inj 40 Mg Vial IVP 06/14/25 08:59 40 mg QDAY JERRY Administration Pharmacy Consult 1 each 05/14/25 14:30 Vancomycin Pharmacy To Dose 1 Each Each IV 06/13/25 14:29 QDAY PRN PROTOCOL Plan 70-year-old female with past medical history of Down syndrome, asthma, hypothyroidism, and seizure disorder was admitted for acute hypoxic respiratory failure likely secondary to community-acquired pneumonia, sepsis alert was called for hypotension despite aduate fluid resusciation, admitted to ICU. NEURO #Acute encephalopathy Most likely metabolic encephalopathy secondary to underlying sepsis. At this time do not strongly feel there is an indication for head CT, patient did not have any falls or trauma and physical exam does not reveal any abrasions or bruising or focal neurologic deficit. - Treat underlying sepsis - NPO for now #History of seizure disorder - Continued home dose of Keppra XR 1000 mg PO daily to IV form #History of Down Syndrome CARDIO #Shock, likely septic Patient had tachycardia with HR 102, leukocytosis WBC 15.8 with a likely infectious source identified as pneumonia. Lactic acid 4.5->2.0. Patient had hypothermia to 96.6. qSOFA score is 2 for decreased mentation and systolic BP <100. SOFA score identified as 6. (Initial SOFA Scores less than or equal to 9 predict less than or equal to 33.3% mortality) Procalcitonin 0.34, suggesting a non-bacterial etiology. Hypotension persisted despite adequate fluid resuscitation (3L of IV fluids). Influenza A, B and COVID-19 testing were negative. Requiring OxyMask at 2L and does not use home oxygen. Troponin was negative, BNP only slightly elevated at 126. - Continue norepinephrine support and wean to MAP >65 - Perform NICOM to assess for fluid responsiveness when patient comes up to ICU - Continue to monitor lactate levels and other markers of sepsis and organ function PULM #Acute hypoxic respiratory failure, secondary to #Community acquired pneumonia CXR showed early bilateral perihilar pneumonia, and patient has been having a productive cough. - Continue Vancomycin per pharm dosing for coverage of MRSA and resistant pathogens. - Continue Zosyn (Piperacillin/Tazobactam) 3.375 grams IV for broad-spectrum coverage against typical and resistant gram-negative pathogens. - Continue azithromycin 500 mg IV qday for atypical pathogen coverage - Continue oxygen therapy via OxyMask at 2L. - Hydrocortisone 50 mg IV q6h - Draw VBG from central line brown port for SvO2 measurement - DuoNebs q6h - Started acetylcysteine q6h #History of asthma - Hold home montelukast until able to take PO GI #AST elevation #Alkaline phosphatase elevation AST 35, likely fatty liver disease, as it is chronic. - Follow CMP NEPHRO #JESSICA, prerenal - resolved Likely in the setting of sepsis. Patient received 3L fluid resuscitation. - Follow renal panel #Lactic acidosis - resolved Initially LA was 4.5 downtrended to 2.0 - Continue pressor support to maintain MAP >65 URO #No active problems HEME #Leukocytosis - resolved Likely in the setting of sepsis. There is a left neutrophillic shift, indicating more likely infection. - Treat underlying sepsis as above - Follow CBC ENDO #History of hypothyroidism Home medication is levthyroxine 75 mcg qday. - Continue on IV levothyroxine 56 mcg daily will switch to PO tomorrow ID #Community acquired pneumonia CXR showed early bilateral perihilar pneumonia, and patient has been having a productive cough for about 1 day. Patient had tachycardia with HR 102, leukocytosis WBC 15.8 with initial lactic acid of 4.5. Became slightly hypothermic in ED at 96.6. - Continue Vancomycin per pharm dosing for coverage of MRSA and resistant pathogens. - Continue Zosyn (Piperacillin/Tazobactam) 3.375 grams IV for broad-spectrum coverage against typical and resistant gram-negative pathogens. - Continue azithromycin 500 mg IV qday for atypical pathogen coverage - Pending blood cultures - Pending urine culture - Pending MRSA screen - Sputum gram stain and culture pending MSK #No active problems SKIN #No active problems DVT prophylaxis: Lovenox 40 mg subQ GI prophylaxis: None Diet: Dysphagia 1 pureed Rodriguez: Present [05/14/2025- ] Lines: Peripheral IV, Central IV Antibiotics: Zosyn [05/14- ], vancomycin [05/14- ], azithromycin [05/14- ] CODE STATUS: FULL Reason for ICU care: Septic shock requiring vasopressor support, off since 15:00 on 05/15/2025 Patient plan of care was discussed with the attending busperson, Dr. Solano. Marianne Hazel, PGY-3 Attending Provider Attestation/Addendum Patient seen and examined with resident, agree with above. In brief this 70-year-old female admitted to the ICU for septic shock and acute hypoxic respiratory failure requiring supplemental oxygen. She was placed on vasopressors for hemodynamic support. On physical exam today she is awake, nonverbal at baseline, Down syndrome, lungs clear anteriorly with occasional posterior crackles, no expiratory wheezes, heart rate regular and rhythmic, bowel sounds present, no significant edema. Her chest x-ray showed some infiltrate and she is currently on antibiotics. She is being weaned down on her Levophed. Will perform cheetah for additional hemodynamics. Case discussed with ICU team Labs, imaging records reviewed Approximately 45 critical care been required for evaluation, exam, review, intervention, discussion formation plan of care for this revealed patient with septic shock on Levophed.
[2025-05-15] MEDS: MONTELUKAST SODIUM 10 MG TABLET PO (20:48)
[2025-05-16] VITALS (72 sets, daily range): BP systolic 87–138; BP diastolic 47–109; PULSE 47–130; RESP 12–29; TEMP 36.1–36.7; O2SAT 81–100; BMI 27.0
--- NOTE | 2025-05-16 | XR_ITS ---
Examination: CT abdomen and pelvis without contrast. Coronal 3-D reconstructions. Sagittal 2-D reconstructions. Date and time of exam:May 16, 2025, 8003 hours Comparison 06/29/2023. INDICATIONS: Flank pain abdominal pain today, history kidney stones CTDI: vol (mGy): 10.7 DLP: (mGycm): 562 Technique: Axial images of the abdomen have been obtained, 3 mm slice thickness Intravenous contrast material has not been administered. Low dose protocols were performed. One or more of the following dose reduction techniques were used; automated exposure control, adjustment of the mA and/or KV according to patient size, use of iterative reconstruction technique. Findings: Mild to moderate enlargement cardiac contour with vascular congestion and septal edema at the lung bases, pneumonia right base, mild to moderate bilateral pleural effusions Prominent patient motion with no diagnostic visualization of the gallbladder The liver and spleen do not appear enlarged No pancreatic mass No hydronephrosis or renal or ureteral calculi Mildly fluid distended small bowel loops No definite bowel obstruction Appendix is not diagnostically visualized No bladder calculi Air in the urinary bladder with mild urinary bladder wall thickening Severe osteopenia, again noted chronic severe compression T12, and interval advanced disc narrowing L5-S1 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
[2025-05-16] MEDS: ALBUTEROL/IPRATROPIUM (Duoneb) RT SOL 3 ML NEBU INH ×4 (00:35→18:50)
[2025-05-16] MEDS: ACETYLCYSTEINE RT SOL 10% 4 ML NEBU 3 ML INH ×4 (00:40→18:50)
[2025-05-16] MEDS: HYDROCORTISONE SOD SUCC INJ 100 MG 2 ML VIAL 50 MG IV ×3 (01:42→11:18)
[2025-05-16] MEDS: PIPER/TAZO 3.375 GM PREMIX 3.375 GM/50 ML BAG IV (05:42)
[2025-05-16] MEDS: MIDODRINE 5 MG TABLET PO (05:42)
[2025-05-16 06:12] LABS: Basophils # (Auto) 0.0 Thou/mm3 (0.0-0.2); Basophils % (Auto) 0 % (0-2.5); Eosinophils # (Auto) 0.0 Thou/mm3 (0.0-0.5); Eosinophils % (Auto) 0 % (0-10); Hematocrit 33.7 % (36.0-46.0); Hemoglobin 11.2 g/dL (12.0-16.0); Immature Granulocytes Auto 0.05 Thou/mm3 (0.00-0.00); Lymphocytes # (Auto) 0.5 Thou/mm3 (1.0-4.8); Lymphocytes % (Auto) 6 % (10-50); Mean Corpuscular HGB Conc 33.2 g/dl (31.0-37.0); Mean Corpuscular Hemoglobin 32.3 pg (25.0-35.0); Mean Corpuscular Volume 97 fL (80-100); Monocytes # (Auto) 0.4 Thou/mm3 (0.0-0.8); Monocytes % (Auto) 5 % (0-12); Neutrophils # (Auto) 6.6 Thou/mm3 (1.8-7.7); Neutrophils % (Auto) 88 % (37-80); Nucleated Red Blood Cell # 0.00 Thou/mm3 (0.00-0.00); Nucleated Red Blood Cell % 0 /100 WBC (0); Platelet Count 150 Thou/mm3 (140-440); RDW Standard Deviation 46.2 fL (36.4-46.3); Red Blood Count 3.47 Miln/mm3 (4.00-5.20); White Blood Count 7.5 Thou/mm3 (3.6-11.0)
[2025-05-16 06:54] LABS: Alanine Aminotransferase 62 U/L (10-49); Albumin, Serum 3.2 gm/dL (3.4-4.8); Albumin/Globulin Ratio 1.5 (1.2-2.2); Alkaline Phosphatase 188 U/L (46-116); Anion Gap 11 (7-16); Aspartate Amino Transferase 60 U/L (0-34); BUN/Creatinine Ratio 14 Ratio (12-20); Bilirubin,Total 0.3 mg/dL (0.3-1.2); Blood Urea Nitrogen 11 mg/dL (9-23); Calcium 8.0 mg/dL (8.3-10.6); Calcium (Corrected) 8.6 mg/dL (8.5-10.1); Carbon Dioxide 24.4 mMol/L (20.0-31.0); Chloride 108 mMol/L (98-107); Creatinine (Component) 0.8 mg/dL (0.6-1.3); Estimated Creatinine Clearance 54.1 mL/min (>60); Globulin 2.2 gm/dL (2.3-3.5); Glucose 132 mg/dL (74-106); Magnesium 1.7 mg/dL (1.6-2.6); Osmolality,Calculated 286 (275-295); Phosphorous 2.0 mg/dL (2.4-5.1); Potassium 3.9 mMol/L (3.4-5.1); Sodium 143 mMol/L (136-145); Total Protein 5.4 gm/dL (5.7-8.2); eGFR > 60 See Note
[2025-05-16] MEDS: ASPIRIN 81 MG CHEW PO (08:46)
[2025-05-16] MEDS: levETIRAcetam INJ 100 MG/ML VIAL 5ML 1000 MG IVP (08:46)
[2025-05-16] MEDS: AZITHROMYCIN INJ 500 MG in SODIUM CHLORIDE 0.9% 250 ML 250 ML 250 MG IV (08:47)
[2025-05-16] MEDS: ENOXAPARIN SOD INJ 40 MG/0.4 ML SYRINGE SC (08:47)
--- NOTE | 2025-05-16 09:23 | ECHO_ITS ---
Transthoracic Echo Report Ht (in): 59 Wt (lb): 137 Exam Location: Echo Lab Status: Inpatient Software Validation Engineer: Dana Vang Indications: Procedure Performed: BP: 128 / 77 HR: 73 Technical Quality: Technically difficult study MEASUREMENTS (Male / Female) Normal Values 2D ECHO LV Diastolic Diameter PLAX 3.8 cm 4.2 - 5.9 / 3.9 - 5.3 cm LV Systolic Diameter PLAX 2.5 cm IVS Diastolic Thickness 0.7 cm 0.6 - 1.0 / 0.6 - 0.9 cm LVPW Diastolic Thickness 0.6 cm 0.6 - 1.0 / 0.6 - 0.9 cm LV Relative Wall Thickness 0.3 LVOT Diameter 1.2 cm Aortic Root Diameter 2.4 cm LA Systolic Diameter LX 2.4 cm 3.0 - 4.0 / 2.7 - 3.8 cm Ascending Aorta Diameter 2.0 cm M-MODE Aortic Root Diameter MM 1.7 cm LA Systolic Diameter MM 2.8 cm LA Ao Ratio MM 1.6 AV Cusp Separation MM 1.5 cm DOPPLER AV Peak Velocity 88.8 cm/s AV Peak Gradient 3.2 mmHg AV Mean Gradient 2.0 mmHg AV Velocity Time Integral 20.9 cm LVOT Peak Velocity 58.4 cm/s LVOT Peak Gradient 1.4 mmHg LVOT Velocity Time Integral 13.8 cm LVOT Cardiac Index 699.4 cm?/min?m? AV Area Cont Eq vti 0.7 cm? AV Area Cont Eq pk 0.7 cm? MV Area PHT 2.2 cm? Mitral E Point Velocity 97.5 cm/s Mitral A Point Velocity 99.9 cm/s Mitral E to A Ratio 1.0 LV E' Lateral Velocity 7.2 cm/s Mitral E to LV E' Lateral Ratio 13.6 LV E' Septal Velocity 4.6 cm/s Mitral E to LV E' Septal Ratio 21.3 TR Peak Velocity 269.5 cm/s TR Peak Gradient 29.1 mmHg PV Peak Velocity 58.6 cm/s PV Peak Gradient 1.4 mmHg FINDINGS Left Ventricle The left ventricular cavity size, wall thickness, systolic and diastolic function are normal with no regional wall motion abnormalities present. The left ventricular ejection fraction is normal, estimated at 55-60%. Right Ventricle The right ventricle is normal in size and systolic function. The estimated right ventricular systolic pressure, 42 mmHg. RAP 5. Left Atrium Left atrium not well visualized. Right Atrium Right atrium is not well visualized. Atrial Septum The interatrial septum appears normal with no evidence of a shunt. Aorta The aorta is normal by two-dimensional, color flow and Doppler interrogation. Mitral Valve The mitral valve is normal by two-dimensional, color flow and Doppler interrogation. There is no significant mitral valve regurgitation, stenosis or prolapse. Aortic Valve The aortic valve is trileaflet and normal by two-dimensional, color flow and Doppler interrogation. There is no significant aortic valve regurgitation. Tricuspid Valve The tricuspid valve is normal by two-dimensional, color flow and Doppler interrogation. There is trace tricuspid valve regurgitation. Pulmonic Valve The pulmonic valve is not well visualized. There is no significant pulmonic valve regurgitation. Vessels The pulmonary artery appears normal. The inferior vena cava pulmonary and hepatic veins appear normal. Pericardium The pericardium is normal by two-dimensional imaging. There is no significant pericardial effusion. CONCLUSIONS Indication: Eval LV function Normal LV size and function. There is grade I diastolic dysfunction. Estimated EF at 55-60%. The RV is normal in size and systolic function. The estimated RVSP, 42 mmHg. RAP 5. Trace TR. Celia Cheung (Electronically Signed) Final Date: 19 May 2025 00:27
--- NOTE | 2025-05-16 09:28 | XR_ITS ---
Examination: Abdomen sonogram, complete Date and time of exam: May 16, 2025 1206 hours INDICATIONS: Elevated liver enzymes on laboratory examination today. Technique: Multiple real-time grayscale transabdominal sonographic images of the abdomen have been obtained. Findings: Normal gallbladder. Normal common bile duct 0.2 cm Pancreatic head 2.4 cm Aorta not enlarged. Liver 14 cm fatty infiltration irregular contour no focal liver lesions Normal hepatopedal portal venous flow Patent IVC Right kidney 9.5 cm cortex 1.2 cm 17 mm lower pole cyst Left kidney 9.8 cm cortex 1.3 cm 8mm upper pole calculus Minimal hydronephrosis Moderate bilateral renal parenchymal scar formation Spleen 6.6 cm IMPRESSION: Primary hepatocellular disease, no focal liver lesions Bilateral renal cortical thinning Moderate bilateral renal parenchymal scar formation 8mm left renal calculus Minimal left hydronephrosis, consider CT scan abdomen pelvis without contrast follow-up
[2025-05-16 10:01] LABS: Vancomycin,Trough 16.2 mcg/mL (5.0-10.0)
[2025-05-16] MEDS: cefTRIAXone/D5w 1gm IV premix 1 GM/50 ML BAG IV (10:07)
--- NOTE | 2025-05-16 10:52 | CHAP ---
Talked with family member in the room and gave comfort and a reminder of God's love and presence.
[2025-05-16] MEDS: RINGERS LACTATED 1000 ML 1,000 ML 999 ML IV (11:18)
[2025-05-16 13:16] LABS: Hepatitis A Antibody IgM Non Reactive (Non React); Hepatitis B Core Antibody IgM Non Reactive (Non React); Hepatitis C Antibody Non Reactive (Non React)
[2025-05-16 13:34] LABS: Hepatitis B Surface Antigen Reactive (Non React)
[2025-05-16 13:35] LABS: ZZHep B Surface Ag Confrm* See Sep Rpt
--- NOTE | 2025-05-16 13:36 | ESPR_ITS ---
Documentation for date of: 05/16/25 Subjective Subjective Interval history: 70-year-old female with past medical history of Down syndrome, seizures, asthma, and hypothyroidism, who presented to the ED on 05/14/2025 via ambulance from a residential [place] [facility] due to shortness of breath. Per report patient woke up today with lethargy, excess phlegm, and productive cough for 1 day. Per EMS, the patient was receiving a breathing treatment at the scene and was given additional treatment en route to the hospital. Her oxygen saturation was 88%. Patient is reportedly conserved. According to [facility] patient's baseline is speaking a few word phrases at a time. Initial set of vitals included BP 97/56, HR 93, RR 16, T 99.9F, O2 sat 93 nasal cannula at 4 flow rate. Labs included WBC 15.8. ABG showed pH 7.41, pCO2 45, pO2 52, HCO3 28, O2 saturation 86. Sodium 141, Potassium 5.0, Chloride 106, HCO3 23.6, eGFR 45, creatinine 1.3, glucose 144, AST 35, ALT 27, ALP 121, BNP 126. Troponin negative. UA negative. CXR showed possible early bilateral perihilar pneumonia. In the ED, sepsis alert was called for T 96.8F, BP 89/59 and MAP <64. Patient continued to be hypotensive (70/42, MAP 58) and hypothermic (96.6F) despite 3L of fluids and bear hugger. Patient was initially admitted to the floor team then subsequently upgraded to the ICU for pressor support in the setting of septic shock. 05/15/2025: Patient was seen and examined this morning, was more alert however still mostly nonverbal. Patient had speech evaluation who passed patient for a dysphagia 1 pureed diet. No fevers overnight. This morning, patient had a bradycardic episode to 30s around 8:20, was given 1 mg atropine with resolution and increase in HR to 120s which subsequently normalized. On CXR, it was noted that patient has abnormal kathi texture on the rib cage. Review of prior CTs show similar, possible osteopenia versus bone sclerosis, will follow up with radiologist. Patient was found to be fluid responsive on the NICOM and was given 1L LR bolus. Patient was weaned off norepinephrine about 15:00. Started on midodrine 5 mg TID. Likely downgrade tomorrow to floors. 05/16/2025: Patient was seen this morning, appearing awake and interactive. Makes some eye contact but does not follow commands. No active events overnight, no fevers. Blood cultures are negative 48 hours. Patient has remained off pressors. Will de-escalate antibiotics, stopped vancomycin and switched Zosyn to ceftriaxone. Changed IV home medications to PO for Keppra and levothyroxine. Continue DuoNebs and MucoMyst q6h. Steroids switched from hydrocortisone 50 mg q6h to prednisone 20 mg qday for a total 5-day course. Patient developed some mild bradycardia, likely due to the midodrine, changed to prn for SBP <90 or DBP <55. Mild LFT elevation was noted today, but patient was not exhibiting any particular abdominal complaints. Right upper quadrant US and hepatitis panel were ordered. Patient is stable for downgrade to Telemetry and sign out was given to Team A. Exam Vital Signs Temp Pulse Resp BP Pulse Ox O2 Del Method O2 Flow Rate 97.8 F 72 18 92/51 L 100 Room Air 2 05/16/25 08:00 05/16/25 12:56 05/16/25 12:56 05/16/25 11:00 05/16/25 12:56 05/16/25 11:00 05/16/25 12:56 Narrative Exam Physical Exam General: Awake, appears to make eye contact. Intermittent interaction. HEENT: Alopecia noted. Normocephalic, atraumatic, mucous membranes moist. On room air. Heart: Regular rate and rhythm, normal S1 and S2, no murmurs. Lungs: Mild wheezing in the upper airways. Abdomen: Soft, nondistended, nontender, positive bowel sounds. ?No guarding or rebound tenderness. Neurologic: Awake but not following commands, verbalizes incomprehensible words. Extremities: No edema. Cap refill 2 sec. Skin: No rash or ecchymoses. Objective Labs 05/17/25 05:11 05/17/25 05:11 Labs: Laboratory Results - last 24 hr 05/15/25 05/16/25 05/16/25 14:00 05:34 09:10 WBC 7.5 RBC 3.47 L Hgb 11.2 L Hct 33.7 L MCV 97 MCH 32.3 MCHC 33.2 RDW Std Deviation 46.2 Plt Count 150 Neut % (Auto) 88 H Lymph % (Auto) 6 L [place] % (Auto) 5 Eos % (Auto) 0 Baso % (Auto) 0 Neut # (Auto) 6.6 Lymph # (Auto) 0.5 L [place] # (Auto) 0.4 Eos # (Auto) 0.0 Baso # (Auto) 0.0 Immature Gran # (Auto) 0.05 H Absolute Nucleated RBC 0.00 Immature Gran % 1 H Nucleated RBC % 0 APTT 40.5 H D Sodium 143 Potassium 3.9 Chloride 108 H Carbon Dioxide 24.4 Anion Gap 11 BUN 11 Creatinine 0.8 Estim Creat Clear Calc 54.1 L eGFR > 60 BUN/Creatinine Ratio 14 Glucose 132 H Calculated Osmolality 286 Calcium 8.0 L Corrected Calcium 8.6 Phosphorus 2.0 L Magnesium 1.7 Total Bilirubin 0.3 AST 60 H ALT 62 H Alkaline Phosphatase 188 H D Total Protein 5.4 L Albumin 3.2 L Globulin 2.2 L Albumin/Globulin Ratio 1.5 Vancomycin Trough 16.2 H Hepatitis A IgM Ab Non Reactive Hep Bs Antigen Reactive A Hep B Core IgM Ab Non Reactive Hepatitis C Antibody Non Reactive ABG Interpretation ABG results: 05/14/25 05/15/25 10:03 10:23 ABG pH 7.41 ABG pCO2 45 ABG pO2 52 L* ABG HCO3 29 H ABG O2 Saturation 86 L ABG Base Excess 3 VBG pH 7.31 L VBG pCO2 45 VBG pO2 43 VBG Base Excess -4 L Quality Measures Quality Measures none Advance care planning discussed with:: patient Assessment & Plan Assessment Current Active Medications: Generic Name Dose Route Start Last Admin Trade Name Francisco PRN Reason Stop Dose Admin Acetaminophen 650 mg 05/14/25 14:36 Acetaminophen 325 Mg Tablet PO 06/13/25 14:09 Q6H PRN Fever >100.4 Acetaminophen 650 mg 05/14/25 14:36 Acetaminophen 325 Mg Tablet PO 06/13/25 14:35 Q6HR PRN PAIN SCALE 1-3 (mild Acetylcysteine 3 ml 05/15/25 13:00 05/16/25 12:54 Acetylcysteine Rt Shannon 10% 4 Ml Nebu INH 06/14/25 12:59 3 ml Q6HRRT JERRY Administration Albuterol/Ipratropium 3 ml 05/15/25 13:00 05/16/25 12:54 Albuterol/Ipratropium (Duoneb) Rt Shannon 3 Ml Nebu INH 06/14/25 12:59 3 ml Q6HRRT JERRY Administration Aspirin 81 mg 05/14/25 15:45 05/16/25 08:46 Aspirin 81 Mg Chew PO 06/13/25 15:44 81 mg DAILY JERRY Administration Enoxaparin Sodium 40 mg 05/15/25 09:00 05/16/25 08:47 Enoxaparin Sod Inj 40 Mg/0.4 Ml Syringe SC 05/29/25 08:59 40 mg QDAY JERRY Administration Hydrocortisone Sodium Succinate 50 mg 05/15/25 07:45 05/16/25 11:18 Hydrocortisone Sod Succ Inj 100 Mg 2 Ml Vial IV 06/14/25 07:44 50 mg Q6HR JERRY Administration Azithromycin 500 mg/ Sodium 250 mls @ 250 mls/hr 05/15/25 09:00 05/16/25 08:47 Chloride IV 05/22/25 08:59 250 mls/hr QDAY JERRY Administration Ceftriaxone Sodium/Dextrose 1 gm in 50 mls @ 100 mls/hr 05/16/25 09:30 05/16/25 10:07 Rocephin/D5w 1gm Iv Premix IV 05/23/25 09:29 100 mls/hr QDAY JERRY Administration Levetiracetam 1,000 mg 05/16/25 21:00 Levetiracetam 250 Mg Tablet PO 06/15/25 20:59 BID JERRY Levothyroxine Sodium 75 mcg 05/17/25 06:00 Levothyroxine Sodium 25 Mcg Tablet PO 06/16/25 05:59 ACBR JERRY Midodrine 5 mg 05/16/25 10:12 Midodrine 5 Mg Tablet PO 06/14/25 13:59 TID PRN SBP <90 or DBP <55 Montelukast Sodium 10 mg 05/14/25 21:00 05/15/25 20:48 Montelukast Sodium 10 Mg Tablet PO 06/13/25 20:59 10 mg QPM JERRY Administration Pantoprazole Sodium 40 mg 05/15/25 09:00 05/16/25 08:47 Pantoprazole Inj 40 Mg Vial IVP 06/14/25 08:59 40 mg QDAY JERRY Administration Plan 70-year-old female with past medical history of Down syndrome, asthma, hypothyroidism, and seizure disorder was admitted for acute hypoxic respiratory failure likely secondary to community-acquired pneumonia, sepsis alert was called for hypotension despite aduate fluid resusciation, admitted to ICU. NEURO #Acute encephalopathy - resolved Most likely metabolic encephalopathy secondary to underlying sepsis. At this time do not strongly feel there is an indication for head CT, patient did not have any falls or trauma and physical exam does not reveal any abrasions or bruising or focal neurologic deficit. - Treat underlying sepsis #History of seizure disorder - Continued home dose of Keppra XR 1000 mg to immediate-release Keppra 1000 mg BID because Keppra XL was not available in the hospital #History of Down Syndrome CARDIO #Shock, likely septic - resolved Patient had tachycardia with HR 102, leukocytosis WBC 15.8 with a likely infectious source identified as pneumonia. Lactic acid 4.5->2.0. Patient had hypothermia to 96.6. qSOFA score is 2 for decreased mentation and systolic BP <100. SOFA score identified as 6. (Initial SOFA Scores less than or equal to 9 predict less than or equal to 33.3% mortality) Procalcitonin 0.34, suggesting a non-bacterial etiology. Hypotension persisted despite adequate fluid resuscitation (3L of IV fluids). Influenza A, B and COVID-19 testing were negative. Requiring OxyMask at 2L and does not use home oxygen. Troponin was negative, BNP only slightly elevated at 126. Norepinephrine weaned off at 15:00. #Bradycardia Patient had HR drop in the 50s. Likely midodrine-induced -Wean off midodrine -Continuous telemetry PULM #Acute hypoxic respiratory failure, secondary to #Community acquired pneumonia CXR showed early bilateral perihilar pneumonia, and patient has been having a productive cough. - Discontinued Vancomycin, MRSA screen negative - Switched Zosyn (Piperacillin/Tazobactam) 3.375 grams IV to ceftriaxone 1 g IV qday - Continue azithromycin 500 mg IV qday for atypical pathogen coverage - Continue oxygen therapy via OxyMask at 2L and wean as tolerated - Switched Hydrocortisone 50 mg IV q6h to prednisone 20 mg qday - Continue DuoNebs q6h - Continue acetylcysteine q6h #History of asthma - Hold home montelukast until able to take PO GI #AST elevation #Alkaline phosphatase elevation AST 35, likely fatty liver disease, as it is chronic. - Follow CMP NEPHRO #JESSICA, prerenal - resolved Likely in the setting of sepsis. Patient received 3L fluid resuscitation. - Follow renal panel #Lactic acidosis - resolved Initially LA was 4.5 downtrended to 2.0 URO #No active problems HEME #Leukocytosis - resolved Likely in the setting of sepsis. There is a left neutrophillic shift, indicating more likely infection. - Treat underlying sepsis as above - Follow CBC ENDO #History of hypothyroidism Home medication is levthyroxine 75 mcg qday. - Switched IV levothyroxine 56 mcg to home dose PO ID #Community acquired pneumonia CXR showed early bilateral perihilar pneumonia, and patient has been having a productive cough for about 1 day. Patient had tachycardia with HR 102, leukocytosis WBC 15.8 with initial lactic acid of 4.5. Became slightly hypothermic in ED at 96.6. CXR showed early bilateral perihilar pneumonia, and patient has been having a productive cough. - Discontinued Vancomycin, MRSA screen negative - Switched Zosyn (Piperacillin/Tazobactam) 3.375 grams IV to ceftriaxone 1 g IV qday - Continue azithromycin 500 mg IV qday for atypical pathogen coverage - Blood cultures negative 48 hours - Pending urine culture - MRSA screen negative - Sputum gram stain and culture pending MSK #No active problems SKIN #No active problems DVT prophylaxis: Lovenox 40 mg subQ GI prophylaxis: None Diet: Dysphagia 1 pureed Rodriguez: Present [05/14/2025- ] Lines: Peripheral IV, Central IV Antibiotics: Zosyn [05/14-05/16], vancomycin [05/14-05/16], azithromycin [05/14- ], ceftriaxone [05/16- ] CODE STATUS: FULL Reason for ICU care: Septic shock requiring vasopressor support, off since 15:00 on 05/15/2025, downgraded to Telemetry Patient plan of care was discussed with the attending manufacturing engineer, Dr. Solano. Marianne Hazel, PGY-3 Attending Provider Attestation/Addendum Patient seen and examined with resident, agree with above. In brief this 70-year-old female admitted to the ICU for septic shock and acute hypoxic respiratory failure requiring supplemental oxygen. She was placed on vasopressors for hemodynamic support. On physical exam today she is awake, nonverbal at baseline, Down syndrome, lungs clear anteriorly with occasional posterior crackles, no expiratory wheezes, heart rate regular and rhythmic, bowel sounds present, no significant edema. Her chest x-ray showed some infiltrate and she is currently on antibiotics. She is being weaned down on her Levophed. Will perform cheetah for additional hemodynamics. Case discussed with ICU team Labs, imaging records reviewed Approximately 45 critical care been required for evaluation, exam, review, intervention, discussion formation plan of care for this revealed patient with septic shock on Levophed.
--- NOTE | 2025-05-16 13:40 | ESPR_ITS ---
<Statement entered by Manish Fine MD - 05/16/25 18:11> Patient was examined and case was reviewed with team including attending physician. Note reviewed, I agree with most of its contents and agree with the patient's care as documented by Dr. Andre Signout received by ICU team 70-year-old female with past medical history of seizure disorder, asthma, hypothyroidism, Down syndrome who was admitted to the hospital for acute hypoxic respiratory failure secondary to community-acquired pneumonia. Patient at baseline is nonverbal and is not able to follow any type of command. After patient was admitted to the floors patient's maps dropped below 65 and required vasopressor support in the ICU. Patient in the ICU was titrated from vasopressor support until discontinued. Patient was later monitored in the ICU consistently maintain maps above 65. And later was downgraded to the floors. Will continue antibiotic therapy at this time with vancomycin and Zosyn for treatment of pneumonia. Case discussed with my attending Dr. Slick Fine MD PGY-2 Disclaimer: Despite multiple revisions, due to the dictation software being used, the document bellow may not be free of grammatical errors including phonetic/typographic errors. However, this does not deter from our commitment to providing health care in the patient's best interest in mind. Documentation for date of: 05/16/25 Subjective Subjective Interval history: Ms. Jensen is a 70 y/o female with PMHx of Down syndrome, seizures, asthma, hypothyroidism who was admitted to the hospital for acute hypoxic respiratory failure secondary to community-acquired pneumonia. Patient is nonverbal, does not follow commands at baseline. Patient lives in a residential assisted and was having shortness of breath for several days, lethargy, excess phlegm. Does not use oxygen at home. She was BIBA 05/14 to the ED where a sepsis alert was called for hypotension, MAP less than 64, hypothermic, lactic acid 4.5. Hypotension persisted despite adequate fluid resuscitation with 3 L of IV fluids. Started on antibiotics, oxy mask 2 L. Started on home med IV equivalents, including levothyroxine and Keppra. Patient upgraded to ICU for pressor requirements i/s/o septic shock. In the ICU patient was started on norepinephrine support with MAP goal > 65. Patient was found to be fluid responsive on NICOM. Subsequently weaned off norepi, started midodrine 5 mg 3 times daily. Developed mild bradycardia, most likely secondary to midodrine, changed to as needed for SBP <90 or DBP <55. Lactic acid down trended. Started on vancomycin for MRSA and resistant pathogens, Zosyn for typical and resistant gram-negative pathogens, azithromycin for atypical pathogen coverage. Blood cultures were negative at 48 hours, d/c vancomycin and Zosyn. Started ceftriaxone. Started hydrocortisone 50 mg IV q6h, DuoNebs, Mucomyst. Subsequently switched hydrocortisone to prednisone 20 mg daily x 5 days. Patient also had JESSICA most likely prerenal in the setting of sepsis. Patient has history of chronic transaminitis, AST 35. Patient deemed stable for downgrade to telemetry (in telemetry 2/2 bradycardia episode). Patient evaluated at bedside. Makes eye contact, interactive though nonverbal. Able to squeeze hands, though does not directly follow commands. Patient is afebrile, HR 76, HR 23, BP 138/109, spO2 98% RA. Patient had 1 BM today. Exam Vital Signs Temp Pulse Resp BP Pulse Ox O2 Del Method O2 Flow Rate 97.8 F 72 18 92/51 L 100 Room Air 2 05/16/25 08:00 05/16/25 12:56 05/16/25 12:56 05/16/25 11:00 05/16/25 12:56 05/16/25 11:00 05/16/25 12:56 Narrative Exam General: Awake, appears to make eye contact. Interactive HEENT: Alopecia. Normocephalic, atraumatic, mucous membranes moist. Heart: Regular rate and rhythm, normal S1 and S2, no murmurs. Lungs: CTAB, symmetric chest rise, no use of accessory muscles Abdomen: Soft, mildly distended, nontender, positive bowel sounds. ?No guarding or rebound tenderness. Neurologic: Awake, alert. Nonverbal, does not follow commands. Extremities: No edema. Cap refill 2 sec. Skin: No rash or ecchymoses. Objective Labs 05/17/25 05:11 05/17/25 05:11 Labs: Laboratory Results - last 24 hr 05/15/25 05/16/25 05/16/25 14:00 05:34 09:10 WBC 7.5 RBC 3.47 L Hgb 11.2 L Hct 33.7 L MCV 97 MCH 32.3 MCHC 33.2 RDW Std Deviation 46.2 Plt Count 150 Neut % (Auto) 88 H Lymph % (Auto) 6 L [place] % (Auto) 5 Eos % (Auto) 0 Baso % (Auto) 0 Neut # (Auto) 6.6 Lymph # (Auto) 0.5 L [place] # (Auto) 0.4 Eos # (Auto) 0.0 Baso # (Auto) 0.0 Immature Gran # (Auto) 0.05 H Absolute Nucleated RBC 0.00 Immature Gran % 1 H Nucleated RBC % 0 APTT 40.5 H D Sodium 143 Potassium 3.9 Chloride 108 H Carbon Dioxide 24.4 Anion Gap 11 BUN 11 Creatinine 0.8 Estim Creat Clear Calc 54.1 L eGFR > 60 BUN/Creatinine Ratio 14 Glucose 132 H Calculated Osmolality 286 Calcium 8.0 L Corrected Calcium 8.6 Phosphorus 2.0 L Magnesium 1.7 Total Bilirubin 0.3 AST 60 H ALT 62 H Alkaline Phosphatase 188 H D Total Protein 5.4 L Albumin 3.2 L Globulin 2.2 L Albumin/Globulin Ratio 1.5 Vancomycin Trough 16.2 H Hepatitis A IgM Ab Non Reactive Hep Bs Antigen Reactive A Hep B Core IgM Ab Non Reactive Hepatitis C Antibody Non Reactive ABG Interpretation ABG results: 05/14/25 05/15/25 10:03 10:23 ABG pH 7.41 ABG pCO2 45 ABG pO2 52 L* ABG HCO3 29 H ABG O2 Saturation 86 L ABG Base Excess 3 VBG pH 7.31 L VBG pCO2 45 VBG pO2 43 VBG Base Excess -4 L Quality Measures Quality Measures none Advance care planning discussed with:: patient Assessment & Plan Assessment Current Active Medications: Generic Name Dose Route Start Last Admin Trade Name Freq PRN Reason Stop Dose Admin Acetaminophen 650 mg 05/14/25 14:36 Acetaminophen 325 Mg Tablet PO 06/13/25 14:09 Q6H PRN Fever >100.4 Acetaminophen 650 mg 05/14/25 14:36 Acetaminophen 325 Mg Tablet PO 06/13/25 14:35 Q6HR PRN PAIN SCALE 1-3 (mild Acetylcysteine 3 ml 05/15/25 13:00 05/16/25 12:54 Acetylcysteine Rt Shannon 10% 4 Ml Nebu INH 06/14/25 12:59 3 ml Q6HRRT JERRY Administration Albuterol/Ipratropium 3 ml 08/12/25 13:00 05/16/25 12:54 Albuterol/Ipratropium (Duoneb) Rt Shannon 3 Ml Nebu INH 06/14/25 12:59 3 ml Q6HRRT JERRY Administration Aspirin 81 mg 05/14/25 15:45 05/16/25 08:46 Aspirin 81 Mg Chew PO 06/13/25 15:44 81 mg DAILY JERRY Administration Enoxaparin Sodium 40 mg 05/15/25 09:00 05/16/25 08:47 Enoxaparin Sod Inj 40 Mg/0.4 Ml Syringe SC 05/29/25 08:59 40 mg QDAY JERRY Administration Hydrocortisone Sodium Succinate 50 mg 05/15/25 07:45 05/16/25 11:18 Hydrocortisone Sod Succ Inj 100 Mg 2 Ml Vial IV 06/14/25 07:44 50 mg Q6HR JERRY Administration Azithromycin 500 mg/ Sodium 250 mls @ 250 mls/hr 05/15/25 09:00 05/16/25 08:47 Chloride IV 05/22/25 08:59 250 mls/hr QDAY JERRY Administration Ceftriaxone Sodium/Dextrose 1 gm in 50 mls @ 100 mls/hr 05/16/25 09:30 05/16/25 10:07 Rocephin/D5w 1gm Iv Premix IV 05/23/25 09:29 100 mls/hr QDAY JERRY Administration Levetiracetam 1,000 mg 05/16/25 21:00 Levetiracetam 250 Mg Tablet PO 06/15/25 20:59 BID JERRY Levothyroxine Sodium 75 mcg 05/17/25 06:00 Levothyroxine Sodium 25 Mcg Tablet PO 06/16/25 05:59 ACBR JERRY Midodrine 5 mg 05/16/25 10:12 Midodrine 5 Mg Tablet PO 06/14/25 13:59 TID PRN SBP <90 or DBP <55 Montelukast Sodium 10 mg 05/14/25 21:00 05/15/25 20:48 Montelukast Sodium 10 Mg Tablet PO 06/13/25 20:59 10 mg QPM JERRY Administration Pantoprazole Sodium 40 mg 05/15/25 09:00 05/16/25 08:47 Pantoprazole Inj 40 Mg Vial IVP 09/11/25 08:59 40 mg QDAY JERRY Administration Plan Ms. Jensen is a 70-year-old female with PMH of Down syndrome, asthma, hypothyroidism, and seizure disorder who was admitted for acute hypoxic respiratory failure likely 2/2 to community-acquired pneumonia. Upgraded to ICU for pressor requirements. Now off pressors, stable for downgrade to tele. #Community acquired pneumonia #Acute hypoxic respiratory failure - resolved #Sepsis - resolved #Septic shock - resolved Initially presented with shortness of breath, productive cough, lethargic In the ED patient was desatting with hypotension and hypothermia. Upgraded to ICU for septic shock as pt was unresponsive to IVF 3L, required pressor support. Patient was weaned off pressor support and was deemed stable for downgrade to tele 05/16 VSS, spO2 on room air today. Afebrile, no leukocytosis. Lacic acid 4.5 --> 2 Blood cx NGTD at 48 hr, urine cx negative, MRSA screen negative Initial CXR showed b/l PNA, perihilar edema Plan: - Continue midodrine 5 mg TID (PRN for SBP <90 or DBP <55) - CTM on tele for bradycardia 2/2 midodrine - Continue ceftriaxone 1g IV daily (05/16 - 05/23) - Continue prednisone 20 mg daily x 5 days (05/16 - 05/20) - Continue supplemental O2 NC PRN - DuoNebs q6h, Mucomyst q6h - CTM clinical sx #8 mm left renal calculus #Minimal left hydronephrosis Seen on abdominal US Cook removed earlier today, received 1L IVF today, no urine output since cook removal BUN, Cr WNL Plan: - Pending CT a/p w/o #Primary hepatocellular disease #Transaminitis Seen on abdominal US Abdomen mildly distended, no TTP AST 60, ALT 62, Alk phos 188 Hep Bs Ag positive, Hep B core IgM Ab nonreactive. Hep C Ab nonreactive Plan: - Pending Hep Ag confirmation - Pending CT a/p w/o #JESSICA - resolved most likely prerenal i/s/o septic shock, resolved with IVF and pressors Plan: - CTM urine output and CMP daily #Leukocytosis - resolved Initially Plan: - CTM with daily CBC #Normocytic anemia Plan: - CTM with daily CBC #Asthma Plan: - Continue home Montelukast #Epilepsy Home med: Keppra XR 1000 mg PO daily Plan: - Keppra 1000 mg PO daily #Hypothyroidism Plan: - Levothyroxine 75 mcg PO daily #Down Syndrome Checklist Dispo: Pending repeat chest imaging, CT a/p w/o for evaluation of nephrolithiasis Diet: Dysphagia 1 pureed, Ensure plus high protein Bowel Reg: Miralax daily PRN VTE ppx: lovenox 40 mg subQ daily GI ppx: Pantoprazole 40 mg PO daily Pain mgmt: Tylenol Code status: full Plan discussed with Dr. Cook, Dr Slick Andre MD PGY1 Attending Provider Attestation/Addendum I have examined the patient, reviewed labs and imaging findings, discussed the case with the resident(s), and reviewed entered orders. I agree with the plan of care as outlined in this note. Dr. Slick MD
--- NOTE | 2025-05-16 14:26 | PC.SS ---
Update: Patient on 2L nasal cannula. Patient receiving IV antibiotics. P.O. feeds. Patient is afebrile. Rodriguez catheter has been discontinued. Patient has been downgraded from ICU to Tele.
[2025-05-16] MEDS: MONTELUKAST SODIUM 10 MG TABLET PO (20:50)
[2025-05-17] VITALS (10 sets, daily range): BP systolic 92–125; BP diastolic 51–99; PULSE 68–106; RESP 13–27; TEMP 36.1–36.6; O2SAT 90–100
[2025-05-17] MEDS: ACETYLCYSTEINE RT SOL 10% 4 ML NEBU 3 ML INH ×4 (01:48→18:58)
[2025-05-17] MEDS: ALBUTEROL/IPRATROPIUM (Duoneb) RT SOL 3 ML NEBU INH ×4 (01:48→19:17)
[2025-05-17] MEDS: LEVOTHYROXINE SODIUM 25 MCG TABLET 75 MCG PO (05:19)
[2025-05-17 05:43] LABS: Basophils # (Auto) 0.1 Thou/mm3 (0.0-0.2); Basophils % (Auto) 1 % (0-2.5); Eosinophils # (Auto) 0.1 Thou/mm3 (0.0-0.5); Eosinophils % (Auto) 1 % (0-10); Hematocrit 30.5 % (36.0-46.0); Hemoglobin 10.4 g/dL (12.0-16.0); Immature Granulocytes Auto 0.07 Thou/mm3 (0.00-0.00); Lymphocytes # (Auto) 1.6 Thou/mm3 (1.0-4.8); Lymphocytes % (Auto) 18 % (10-50); Mean Corpuscular HGB Conc 34.1 g/dl (31.0-37.0); Mean Corpuscular Hemoglobin 32.9 pg (25.0-35.0); Mean Corpuscular Volume 97 fL (80-100); Monocytes # (Auto) 0.7 Thou/mm3 (0.0-0.8); Monocytes % (Auto) 7 % (0-12); Neutrophils # (Auto) 6.6 Thou/mm3 (1.8-7.7); Neutrophils % (Auto) 73 % (37-80); Nucleated Red Blood Cell # 0.00 Thou/mm3 (0.00-0.00); Nucleated Red Blood Cell % 0 /100 WBC (0); Platelet Count 164 Thou/mm3 (140-440); RDW Standard Deviation 46.7 fL (36.4-46.3); Red Blood Count 3.16 Miln/mm3 (4.00-5.20); White Blood Count 9.1 Thou/mm3 (3.6-11.0)
[2025-05-17 06:16] LABS: Alanine Aminotransferase 59 U/L (10-49); Albumin, Serum 3.2 gm/dL (3.4-4.8); Albumin/Globulin Ratio 1.5 (1.2-2.2); Alkaline Phosphatase 149 U/L (46-116); Anion Gap 6 (7-16); Aspartate Amino Transferase 43 U/L (0-34); BUN/Creatinine Ratio 18 Ratio (12-20); Bilirubin,Total 0.2 mg/dL (0.3-1.2); Blood Urea Nitrogen 14 mg/dL (9-23); Calcium 8.3 mg/dL (8.3-10.6); Calcium (Corrected) 8.9 mg/dL (8.5-10.1); Carbon Dioxide 26.7 mMol/L (20.0-31.0); Chloride 112 mMol/L (98-107); Creatinine (Component) 0.8 mg/dL (0.6-1.3); Estimated Creatinine Clearance 54.1 mL/min (>60); Globulin 2.1 gm/dL (2.3-3.5); Glucose 113 mg/dL (74-106); Magnesium 2.1 mg/dL (1.6-2.6); Osmolality,Calculated 290 (275-295); Potassium 3.4 mMol/L (3.4-5.1); Sodium 145 mMol/L (136-145); Total Protein 5.3 gm/dL (5.7-8.2); eGFR > 60 See Note
[2025-05-17 06:45] LABS: Phosphorous 0.8 mg/dL (2.4-5.1)
--- NOTE | 2025-05-17 06:54 | ESPR_ITS ---
<Statement entered by Manish Fine MD - 05/17/25 16:10> Patient was examined and case was reviewed with team including attending physician. Note reviewed, I agree with most of its contents and agree with the patient's care as documented by Dr. Andre Patient seen today and evaluated at the bedside. Currently saturating above 95% on 1 L nasal cannula. Urinary catheter removed and passed voiding trial. Patient currently on antibiotic treatment for community-acquired pneumonia. Will likely transition to p.o. route in the a.m. and possibly discharge in the next 24-48 hours. Case discussed with my attending Dr. Slick Fine MD PGY-2 Disclaimer: Despite multiple revisions, due to the dictation software being used, the document bellow may not be free of grammatical errors including phonetic/typographic errors. However, this does not deter from our commitment to providing health care in the patient's best interest in mind. Documentation for date of: 05/17/25 Subjective Subjective Interval history: NAEO. spO2 90% on RA, no hx COPD. spO2 95% on 1L. Continues to make urine after cook removal. Patient is nonverbal, was tracking and interactive today. Exam Vital Signs Temp Pulse Resp BP Pulse Ox O2 Del Method O2 Flow Rate 97.0 F 106 H 20 111/86 H 97 Room Air 2 05/17/25 04:00 05/17/25 06:09 05/17/25 06:09 05/17/25 04:00 05/17/25 06:09 05/17/25 04:00 05/16/25 12:56 Narrative Exam General: Awake, appears to make eye contact. Interactive HEENT: Alopecia. Normocephalic, atraumatic, mucous membranes moist. Heart: Regular rate and rhythm, normal S1 and S2, no murmurs. Lungs: CTAB, symmetric chest rise, no use of accessory muscles, 95% spO2 on 1L Abdomen: Soft, mildly distended, nontender, positive bowel sounds. ?No guarding or rebound tenderness. Neurologic: Awake, alert. Nonverbal, does not follow commands. Extremities: No edema. Cap refill 2 sec. Skin: No rash or ecchymoses. Objective Labs 05/17/25 05:11 05/17/25 13:07 Labs: Laboratory Results - last 24 hr 05/16/25 05/16/25 05/17/25 05:34 09:10 05:11 WBC 9.1 RBC 3.16 L Hgb 10.4 L Hct 30.5 L MCV 97 MCH 32.9 MCHC 34.1 RDW Std Deviation 46.7 H Plt Count 164 Neut % (Auto) 73 Lymph % (Auto) 18 [place] % (Auto) 7 Eos % (Auto) 1 Baso % (Auto) 1 Neut # (Auto) 6.6 Lymph # (Auto) 1.6 [place] # (Auto) 0.7 Eos # (Auto) 0.1 Baso # (Auto) 0.1 Immature Gran # (Auto) 0.07 H Absolute Nucleated RBC 0.00 Immature Gran % 1 H Nucleated RBC % 0 Sodium 143 145 Potassium 3.9 3.4 D Chloride 108 H 112 H Carbon Dioxide 24.4 26.7 Anion Gap 11 6 L BUN 11 14 Creatinine 0.8 0.8 Estim Creat Clear Calc 54.1 L 54.1 L eGFR > 60 > 60 BUN/Creatinine Ratio 14 18 Glucose 132 H 113 H Calculated Osmolality 286 290 Calcium 8.0 L 8.3 Corrected Calcium 8.6 8.9 Phosphorus 2.0 L 0.8 L* Magnesium 1.7 2.1 Total Bilirubin 0.3 0.2 L AST 60 H 43 H ALT 62 H 59 H Alkaline Phosphatase 188 H D 149 H D Total Protein 5.4 L 5.3 L Albumin 3.2 L 3.2 L Globulin 2.2 L 2.1 L Albumin/Globulin Ratio 1.5 1.5 Vancomycin Trough 16.2 H Hepatitis A IgM Ab Non Reactive Hep Bs Antigen Reactive A Hep B Core IgM Ab Non Reactive Hepatitis C Antibody Non Reactive ABG Interpretation ABG results: 05/14/25 05/15/25 10:03 10:23 ABG pH 7.41 ABG pCO2 45 ABG pO2 52 L* ABG HCO3 29 H ABG O2 Saturation 86 L ABG Base Excess 3 VBG pH 7.31 L VBG pCO2 45 VBG pO2 43 VBG Base Excess -4 L Quality Measures Quality Measures none Advance care planning discussed with:: patient Assessment & Plan Assessment Current Active Medications: Generic Name Dose Route Start Last Admin Trade Name Freq PRN Reason Stop Dose Admin Acetaminophen 650 mg 05/14/25 14:36 Acetaminophen 325 Mg Tablet PO 06/13/25 14:09 Q6H PRN Fever >100.4 Acetaminophen 650 mg 05/14/25 14:36 Acetaminophen 325 Mg Tablet PO 06/13/25 14:35 Q6HR PRN PAIN SCALE 1-3 (mild Acetylcysteine 3 ml 05/15/25 13:00 05/17/25 06:09 Acetylcysteine Rt Shannon 10% 4 Ml Nebu INH 06/14/25 12:59 3 ml Q6HRRT JERRY Administration Albuterol/Ipratropium 3 ml 05/15/25 13:00 05/17/25 06:08 Albuterol/Ipratropium (Duoneb) Rt Shannon 3 Ml Nebu INH 06/14/25 12:59 3 ml Q6HRRT JERRY Administration Aspirin 81 mg 05/14/25 15:45 05/16/25 08:46 Aspirin 81 Mg Chew PO 06/13/25 15:44 81 mg DAILY JERRY Administration Enoxaparin Sodium 40 mg 05/15/25 09:00 05/16/25 08:47 Enoxaparin Sod Inj 40 Mg/0.4 Ml Syringe SC 05/29/25 08:59 40 mg QDAY JERRY Administration Azithromycin 500 mg/ Sodium 250 mls @ 250 mls/hr 05/15/25 09:00 05/16/25 09:47 Chloride IV 05/22/25 08:59 Infused QDAY JERRY Infusion Ceftriaxone Sodium/Dextrose 1 gm in 50 mls @ 100 mls/hr 05/16/25 09:30 05/16/25 10:37 Rocephin/D5w 1gm Iv Premix IV 05/23/25 09:29 Infused QDAY JERRY Infusion Levetiracetam 1,000 mg 05/16/25 21:00 05/16/25 20:50 Levetiracetam 250 Mg Tablet PO 06/15/25 20:59 1,000 mg BID JERRY Administration Levothyroxine Sodium 75 mcg 05/17/25 06:00 05/17/25 05:19 Levothyroxine Sodium 25 Mcg Tablet PO 06/16/25 05:59 75 mcg ACBR JERRY Administration Midodrine 5 mg 05/16/25 10:12 Midodrine 5 Mg Tablet PO 06/14/25 13:59 TID PRN SBP <90 or DBP <55 Montelukast Sodium 10 mg 05/14/25 21:00 05/16/25 20:50 Montelukast Sodium 10 Mg Tablet PO 06/13/25 20:59 10 mg QPM JERRY Administration Pantoprazole Sodium 40 mg 05/15/25 09:00 05/16/25 08:47 Pantoprazole Inj 40 Mg Vial IVP 06/14/25 08:59 40 mg QDAY JERRY Administration Polyethylene Glycol 17 gm 05/16/25 15:56 Polyethylene Glycol 17 Gm Packet PO 06/15/25 15:59 QDAY PRN constipation Prednisone 20 mg 05/17/25 09:00 Prednisone 20 Mg Tablet PO 05/20/25 13:50 QDAY JERRY Plan Ms. Jensen is a 70-year-old female with PMH of Down syndrome, asthma, hypothyroidism, and seizure disorder who was admitted for acute hypoxic respiratory failure likely 2/2 to community-acquired pneumonia. Upgraded to ICU for pressor requirements. Now off pressors, stable for downgrade to tele. #Community acquired pneumonia #Acute hypoxic respiratory failure - resolved #Sepsis - resolved #Septic shock - resolved Initially presented with shortness of breath, productive cough, lethargic In the ED patient was desatting with hypotension and hypothermia. Upgraded to ICU for septic shock as pt was unresponsive to IVF 3L, required pressor support. Patient was weaned off pressor support and was deemed stable for downgrade to tele 05/16 VSS, spO2 on room air today. Afebrile, no leukocytosis. Lacic acid 4.5 --> 2 Blood cx NGTD at 48 hr, urine cx negative, MRSA screen negative Initial CXR showed b/l PNA, perihilar edema D/C prednisone as patient is clinically improved, vitals improved, no leukocytosis Plan: - Continue midodrine 5 mg TID (PRN for SBP <90 or DBP <55) - CTM on tele for bradycardia 2/2 midodrine - Continue ceftriaxone 1g IV daily (05/16 - 05/23) - Continue azithromycin 500 mg IV qday for atypical pathogen coverage (05/15 - 05/22) - Continue supplemental O2 NC PRN - DuoNebs q6h, Mucomyst q6h - CTM clinical sx #8 mm left renal calculus - r/o on CT #Minimal left hydronephrosis - r/o on CT Seen on abdominal US Continues to make urine post cook removal BUN, Cr WNL CT a/p w/o showed no gross renal calculi, no hydronephrosis, no gross ureteral calculi. Cystitis pattern Plan: - CTM urine output, daily CMP for kidney function #Primary hepatocellular disease #Transaminitis Seen on abdominal US Abdomen mildly distended, no TTP AST 60, ALT 62, Alk phos 188 Hep Bs Ag positive, Hep B core IgM Ab nonreactive. Hep C Ab nonreactive Plan: - Pending Hep Ag confirmation - Consulted ID, appreciate recs #JESSICA - resolved most likely prerenal i/s/o septic shock, resolved with IVF and pressors Plan: - CTM urine output and CMP daily #Leukocytosis - resolved Initially Plan: - CTM with daily CBC #Normocytic anemia Plan: - CTM with daily CBC #Asthma Plan: - Continue home Montelukast #Epilepsy Home med: Keppra XR 1000 mg PO daily Plan: - Keppra 1000 mg PO daily #Hypothyroidism Plan: - Levothyroxine 75 mcg PO daily #Down Syndrome Checklist Dispo: PNA mgmt Diet: Dysphagia 1 pureed, Ensure plus high protein Bowel Reg: Miralax daily PRN VTE ppx: lovenox 40 mg subQ daily GI ppx: Pantoprazole 40 mg PO daily Pain mgmt: Tylenol Code status: full Plan discussed with Dr. Cook, Dr Slick Andre MD PGY1 Attending Provider Attestation/Addendum I have examined the patient, reviewed labs and imaging findings, discussed the case with the resident(s), and reviewed entered orders. I agree with the plan of care as outlined in this note, with these additional summaries/recommendations: Patient seen at bedside. No acute overnight events. Patient has developmental delay and no history can be obtained at this time. Patient downgraded from ICU for septic shock status post pressors. Continue as needed midodrine for hypotension, blood pressure improving. Source for septic shock secondary to community-acquired pneumonia. Continue IV antibiotics. Blood and urine cultures showed no growth to date. Patient was found to have minimal transaminitis and acute hepatitis panel was obtained which revealed reactive hepatitis B surface antigen. Patient is relatively homebound at custodial and unclear how she would have contracted acute hepatitis B. We will await hepatitis B surface antigen confirmation test which is pending before patient can be safely discharged. Patient was also found to have 8 mm left renal calculus with minimal hydronephrosis on ultrasound. CT abdomen was obtained which revealed no evidence of nephrolithiasis/urolithiasis. Case discussed with urology and no intervention needed at this time and can follow-up outpatient. Continue home antiepileptic Keppra, home levothyroxine, and Singulair. Anticipate discharge in the next 24 to 48 hours pending hepatitis B serology. Please see residents note for additional details of management. Dr. Slick MD
[2025-05-17] MEDS: cefTRIAXone/D5w 1gm IV premix 1 GM/50 ML BAG IV (08:27)
[2025-05-17] MEDS: ENOXAPARIN SOD INJ 40 MG/0.4 ML SYRINGE SC (08:27)
[2025-05-17] MEDS: ASPIRIN 81 MG CHEW PO (08:27)
[2025-05-17] MEDS: NAPH,KPH MBDB 1 PACKET (1.5 GM) PO (08:31)
[2025-05-17] MEDS: AZITHROMYCIN INJ 500 MG in SODIUM CHLORIDE 0.9% 250 ML 250 ML 250 MG IV (09:30)
[2025-05-17 13:33] LABS: Potassium 3.6 mMol/L (3.4-5.1)
--- NOTE | 2025-05-17 14:45 | PC.SS ---
SS follow up note; Patient is a ICU downgrade, ID rec's pending. Patient will discharge back to [facility]
[2025-05-17] MEDS: MONTELUKAST SODIUM 10 MG TABLET PO (20:57)
[2025-05-18] VITALS (10 sets, daily range): BP systolic 105–147; BP diastolic 63–94; PULSE 63–94; RESP 17–26; TEMP 36.1–37.2; O2SAT 91–100; BMI 27.0
[2025-05-18] MEDS: ALBUTEROL/IPRATROPIUM (Duoneb) RT SOL 3 ML NEBU INH ×4 (01:12→19:04)
[2025-05-18] MEDS: ACETYLCYSTEINE RT SOL 10% 4 ML NEBU 3 ML INH ×4 (01:12→19:04)
[2025-05-18] MEDS: LEVOTHYROXINE SODIUM 25 MCG TABLET 75 MCG PO (05:20)
[2025-05-18 05:50] LABS: Basophils # (Auto) 0.1 Thou/mm3 (0.0-0.2); Basophils % (Auto) 1 % (0-2.5); Eosinophils # (Auto) 0.0 Thou/mm3 (0.0-0.5); Eosinophils % (Auto) 1 % (0-10); Hematocrit 29.2 % (36.0-46.0); Hemoglobin 9.6 g/dL (12.0-16.0); Immature Granulocytes Auto 0.13 Thou/mm3 (0.00-0.00); Lymphocytes # (Auto) 1.4 Thou/mm3 (1.0-4.8); Lymphocytes % (Auto) 21 % (10-50); Mean Corpuscular HGB Conc 32.9 g/dl (31.0-37.0); Mean Corpuscular Hemoglobin 32.7 pg (25.0-35.0); Mean Corpuscular Volume 99 fL (80-100); Monocytes # (Auto) 0.7 Thou/mm3 (0.0-0.8); Monocytes % (Auto) 10 % (0-12); Neutrophils # (Auto) 4.3 Thou/mm3 (1.8-7.7); Neutrophils % (Auto) 66 % (37-80); Nucleated Red Blood Cell # 0.00 Thou/mm3 (0.00-0.00); Nucleated Red Blood Cell % 0 /100 WBC (0); Platelet Count 167 Thou/mm3 (140-440); RDW Standard Deviation 49.8 fL (36.4-46.3); Red Blood Count 2.94 Miln/mm3 (4.00-5.20); White Blood Count 6.6 Thou/mm3 (3.6-11.0)
[2025-05-18 06:30] LABS: Alanine Aminotransferase 43 U/L (10-49); Albumin, Serum 2.9 gm/dL (3.4-4.8); Albumin/Globulin Ratio 1.3 (1.2-2.2); Alkaline Phosphatase 128 U/L (46-116); Anion Gap 8 (7-16); Aspartate Amino Transferase 29 U/L (0-34); BUN/Creatinine Ratio 17 Ratio (12-20); Bilirubin,Total 0.2 mg/dL (0.3-1.2); Blood Urea Nitrogen 12 mg/dL (9-23); Calcium 7.8 mg/dL (8.3-10.6); Calcium (Corrected) 8.7 mg/dL (8.5-10.1); Carbon Dioxide 29.0 mMol/L (20.0-31.0); Chloride 113 mMol/L (98-107); Creatinine (Component) 0.7 mg/dL (0.6-1.3); Estimated Creatinine Clearance 61.8 mL/min (>60); Globulin 2.2 gm/dL (2.3-3.5); Glucose 110 mg/dL (74-106); Magnesium 2.1 mg/dL (1.6-2.6); Osmolality,Calculated 298 (275-295); Phosphorous 1.6 mg/dL (2.4-5.1); Potassium 3.7 mMol/L (3.4-5.1); Sodium 150 mMol/L (136-145); Total Protein 5.1 gm/dL (5.7-8.2); eGFR > 60 See Note
[2025-05-18] MEDS: ASPIRIN 81 MG CHEW PO (09:24)
[2025-05-18] MEDS: ENOXAPARIN SOD INJ 40 MG/0.4 ML SYRINGE SC (09:24)
[2025-05-18] MEDS: NAPH,KPH MBDB 1 PACKET (1.5 GM) PO ×2 (09:24)
[2025-05-18] MEDS: cefTRIAXone/D5w 1gm IV premix 1 GM/50 ML BAG IV (09:26)
[2025-05-18] MEDS: AZITHROMYCIN INJ 500 MG in SODIUM CHLORIDE 0.9% 250 ML 250 ML 250 MG IV (10:12)
--- NOTE | 2025-05-18 10:22 | CHAP ---
Patient expressed gratitude for visit and prayer.
--- NOTE | 2025-05-18 11:00 | PC.SS ---
SS follow up note; SS was informed that patient's caregiver, Manjinder Mckenzie was going to appeal. SS provided Manjinder with [employer]'s contact number.
--- NOTE | 2025-05-18 12:11 | PC.NURSE ---
Dr. Ruiz aware pt. caregiver is disputing DC.
--- NOTE | 2025-05-18 15:00 | PC.SS ---
SS contacted rn medicare Manjinder in regards to contacting Con, Manjinder informed SS that he had attempted to contact [facility], Multiple times however are not answering and has left a voicemail multiple times.
--- NOTE | 2025-05-18 15:55 | PC.CC ---
Received [facility] [id number]. Clinical Documents uploaded to [employer]. Current status is All Documents Received.
--- NOTE | 2025-05-18 20:51 | ESDS_ITS ---
<Statement entered by Jodie Ruiz DO - 05/19/25 08:42> I, Jodie Ruiz DO, attest that I was physically present for the torres portions of the service and evaluated the patient with the resident and I reviewed and discussed the case with the resident and agree with the resident's findings and plans of care as documented above <Statement entered by Manish Fine MD - 05/18/25 21:58> Patient was examined and case was reviewed with team including attending physician. Note reviewed, I agree with most of its contents and agree with the patient's care as documented by Dr. Balwinder Fine MD PGY-2 Planned Discharge Date 05/18/25 DS: Providers Provider Date of admission: 05/14/25 14:07 Primary care physician: Rolando Rosas MD Admitting Provider: Jodie Ruiz DO Attending Provider on Admission: Loree Solano MD Consults: 05/15/25 08:50 Referral Speech Therapy Stat Comment: 05/17/25 13:16 Consult to Infectious Diseases Stat Comment: Hep B Ag reactive, pending confirmation Consulting Provider: Trev Meier Attending Provider on DC: Jodie Ruiz DO Discharging Provider: Tita Britt DO Anticipated date of discharge: 05/19/25 DS: Diagnosis Problem List Completed Was Problem List Reviewed/Reconciled?: Yes Hospital Course Hospital Course Hospital course: 70-year-old female with Down syndrome, seizures, asthma, and hypothyroidism was admitted to [facility] on 05/14/25 with acute hypoxic respiratory failure and septic shock from community-acquired pneumonia. She was hypothermic, hypotensive (MAP <65), and lactic acid 4.5, unresponsive to 3 L IV fluids, requiring ICU admission and norepinephrine. Patient was treated for pneumonia wi th broad-spectrum antibiotics, that were further narrowed to ceftriaxone and azithromycin after negative cultures. She was weaned off pressors, transitioned to PRN midodrine, and JESSICA resolved. Imaging showed mild transaminitis with hepatitis B surface antigen positivity (confirmation pending) and a non- obstructing renal calculus requiring no intervention. Downgraded to telemetry 05/16/25, she remained stable on room air with improving symptoms. Patient remains at baseline mental status. Patient is stable for discharge and can complete rest of PO antibiotics at home. No further need for midodrine. Patient is medically and physically stable for discharge. Diagnosis #Community-acquired pneumonia #Acute hypoxic respiratory failure #Sepsis #Septic shock #Acute kidney injury #Primary hepatocellular disease #Hepatitis B surface antigen positive #Left renal calculus #Normocytic anemia #Asthma #Seizure disorder #Hypothyroidism #Down syndrome Discharge Plan: Follow-up with your primary care physician within 1 week of discharge. You have been prescribed Augmentin and azithromycin which are antibiotics for treatment of your pneumonia. Should your symptoms recur or worsen patient is instructed to return to the ER. Case discussed with my senior resident Dr. Joey Fine and my attending Dr. Ruiz. Tita Britt, PGY 1 Status at Discharge Overall status at discharge: patient is back to baseline Time Spent with Patient Time attestation: Total time spent providing and/or coordinating discharge services: Time spent: Greater than 30 minutes Exam Vital Signs Temp Pulse Resp BP Pulse Ox O2 Del Method O2 Flow Rate 97.6 F 88 26 H 123/77 97 Nasal Cannula 1 05/18/25 16:00 05/18/25 19:05/18/25 19:05/18/25 16:00 05/18/25 19:05/18/25 16:00 05/18/25 16:00 Narrative Exam General: Awake, appears to make eye contact. Interactive HEENT: Alopecia. Normocephalic, atraumatic, mucous membranes moist. Heart: Regular rate and rhythm, normal S1 and S2, no murmurs. Lungs: CTAB, symmetric chest rise, no use of accessory muscles, 95% spO2 on 1L Abdomen: Soft, mildly distended, nontender, positive bowel sounds. No guarding or rebound tenderness. Neurologic: Awake, alert. Nonverbal, does not follow commands. Extremities: No edema. Cap refill 2 sec. Skin: No rash or ecchymoses. Discharge Plan Plan Patient Disposition: HOME (Self Care) Patient condition on transfer: Stable Care Plan Goals: Follow-up with your primary care physician within 1 week of discharge. You have been prescribed Augmentin and azithromycin which are antibiotics for treatment of your pneumonia. Should your symptoms recur or worsen patient is instructed to return to the ER. Prescriptions/Referrals Prescriptions/Med Rec: New azithromycin 500 mg tablet 500 mg PO QDAY 3 Days Qty: 3 0RF amoxicillin-pot clavulanate 875-125 mg tablet 1 tab PO BID 4 Days Qty: 8 0RF Continued methenamine hippurate [Hiprex] 1 gram tablet 1 g PO QDAY quetiapine 100 mg tablet 100 mg PO HS levothyroxine 75 mcg tablet 75 mcg PO DAILY docusate sodium 100 mg capsule 100 mg PO BID aspirin 81 mg tablet,chewable 81 mg PO DAILY montelukast 10 mg tablet 10 mg PO DAILY loratadine 10 mg tablet 10 mg PO DAILY calcium carbonate-vitamin D3 600 mg-10 mcg (400 unit) tablet 1 tab PO BID levetiracetam [Keppra XR] 500 mg Tablet Extended Release 24 Hr 1,000 mg PO QMORNING Rx Instructions: two tablets by mouth in the morning 1000mg three tablets by mouth at bedtime 1500mg cranberry extract [Cranberry Concentrate] 500 mg Capsule 500 mg PO QDAY Rx Instructions: administer with meals polyethylene glycol 3350 17 gram/dose powder 17 g PO QDAY Referrals: Rolando Rosas MD [Primary Care Provider] - Patient/Caregiver Discharge Instructions Print Language: Maltese Stand Alone Forms: Laurie Award Info., Patient Portal Info Letter Discharge Order Discharge Orders: Discharge (Routine); Ordered 05/18/25 Ordered By: Manish Fine Quality Discharge Quality Measures none
[2025-05-18] MEDS: MONTELUKAST SODIUM 10 MG TABLET PO (21:53)
[2025-05-19] VITALS (12 sets, daily range): BP systolic 120–140; BP diastolic 67–97; PULSE 62–95; RESP 16–23; TEMP 36.1–36.7; O2SAT 94–100
[2025-05-19] MEDS: ACETYLCYSTEINE RT SOL 10% 4 ML NEBU 3 ML INH ×4 (00:34→18:42)
[2025-05-19] MEDS: ALBUTEROL/IPRATROPIUM (Duoneb) RT SOL 3 ML NEBU INH ×4 (00:34→18:42)
[2025-05-19 05:50] LABS: Basophils # (Auto) 0.1 Thou/mm3 (0.0-0.2); Basophils % (Auto) 1 % (0-2.5); Eosinophils # (Auto) 0.4 Thou/mm3 (0.0-0.5); Eosinophils % (Auto) 6 % (0-10); Hematocrit 30.6 % (36.0-46.0); Hemoglobin 10.1 g/dL (12.0-16.0); Immature Granulocytes Auto 0.12 Thou/mm3 (0.00-0.00); Lymphocytes # (Auto) 1.7 Thou/mm3 (1.0-4.8); Lymphocytes % (Auto) 24 % (10-50); Mean Corpuscular HGB Conc 33.0 g/dl (31.0-37.0); Mean Corpuscular Hemoglobin 32.9 pg (25.0-35.0); Mean Corpuscular Volume 100 fL (80-100); Monocytes # (Auto) 0.8 Thou/mm3 (0.0-0.8); Monocytes % (Auto) 12 % (0-12); Neutrophils # (Auto) 3.9 Thou/mm3 (1.8-7.7); Neutrophils % (Auto) 55 % (37-80); Nucleated Red Blood Cell # 0.00 Thou/mm3 (0.00-0.00); Nucleated Red Blood Cell % 0 /100 WBC (0); Platelet Count 170 Thou/mm3 (140-440); RDW Standard Deviation 49.9 fL (36.4-46.3); Red Blood Count 3.07 Miln/mm3 (4.00-5.20); White Blood Count 7.0 Thou/mm3 (3.6-11.0)
[2025-05-19] MEDS: LEVOTHYROXINE SODIUM 25 MCG TABLET 75 MCG PO (06:20)
[2025-05-19 06:21] LABS: Alanine Aminotransferase 41 U/L (10-49); Albumin, Serum 3.0 gm/dL (3.4-4.8); Albumin/Globulin Ratio 1.5 (1.2-2.2); Alkaline Phosphatase 124 U/L (46-116); Anion Gap 8 (7-16); Aspartate Amino Transferase 26 U/L (0-34); BUN/Creatinine Ratio 13 Ratio (12-20); Bilirubin,Total 0.2 mg/dL (0.3-1.2); Blood Urea Nitrogen 8 mg/dL (9-23); Calcium 8.0 mg/dL (8.3-10.6); Calcium (Corrected) 8.8 mg/dL (8.5-10.1); Carbon Dioxide 30.9 mMol/L (20.0-31.0); Chloride 112 mMol/L (98-107); Creatinine (Component) 0.6 mg/dL (0.6-1.3); Estimated Creatinine Clearance 72.1 mL/min (>60); Globulin 2.0 gm/dL (2.3-3.5); Glucose 90 mg/dL (74-106); Magnesium 1.6 mg/dL (1.6-2.6); Osmolality,Calculated 298 (275-295); Phosphorous 2.5 mg/dL (2.4-5.1); Potassium 3.7 mMol/L (3.4-5.1); Sodium 151 mMol/L (136-145); Total Protein 5.0 gm/dL (5.7-8.2); eGFR > 60 See Note
[2025-05-19] MEDS: PANTOPRAZOLE 40 MG TABLET PO (08:53)
[2025-05-19] MEDS: ASPIRIN 81 MG CHEW PO (08:53)
[2025-05-19] MEDS: AZITHROMYCIN 250 MG TABLET 500 MG PO (08:54)
[2025-05-19] MEDS: cefTRIAXone/D5w 1gm IV premix 1 GM/50 ML BAG IV (08:54)
[2025-05-19] MEDS: ENOXAPARIN SOD INJ 40 MG/0.4 ML SYRINGE SC (08:54)
[2025-05-19] MEDS: RINGERS LACTATED 1000 ML 500 ML 999 ML IV ×2 (08:56→12:04)
--- NOTE | 2025-05-19 09:14 | PC.SS ---
SS checked status of appeal via online portal, still in Physician Review progress.
--- NOTE | 2025-05-19 12:05 | PC.NURSE ---
pt. was put on room air she desaturated down to 85-88% checked with 2 different probes and both had same reading notified pt. put back on 1L O2 n/c
--- NOTE | 2025-05-19 13:23 | ESPR_ITS ---
<Statement entered by Manish Fine MD - 05/19/25 13:31> Patient was examined and case was reviewed with team including attending physician. Note reviewed, I agree with most of its contents and agree with the patient's care as documented by Dr. Andre Patient seen today at the bedside. Vitals and labs reviewed. Ordered 1 L LR bolus. Patient was discharged yesterday however property condition assessor appealed discharge. Pending response from social worker delinquency prevention for safe discharge back to skilled nursing. Most likely in the next 24-48 hours. Case discussed with my attending Dr. Sara Fine MD PGY-2 Disclaimer: Despite multiple revisions, due to the dictation software being used, the document bellow may not be free of grammatical errors including phonetic/typographic errors. However, this does not deter from our commitment to providing health care in the patient's best interest in mind. Documentation for date of: 05/19/25 Subjective Subjective Interval history: NAEO. spO2 958% on 1L. Patient is nonverbal, was tracking and interactive today. Given 1L LR as patient has dry mucous membranes, elevated Na 151 on AM labs. D/C was appealed by property condition assessor yesterday, still pending response from social worker delinquency prevention for safe discharge back to skilled nursing, most likely d/c tomorrow Exam Vital Signs Temp Pulse Resp BP Pulse Ox O2 Del Method O2 Flow Rate 98.0 F 73 22 H 120/75 94 L Nasal Cannula 1 05/19/25 12:00 05/19/25 12:36 05/19/25 12:36 05/19/25 12:00 05/19/25 12:36 05/19/25 12:00 05/19/25 12:36 Narrative Exam General: Awake, appears to make eye contact. Interactive HEENT: Alopecia. Normocephalic, atraumatic, mucous membranes moist. Heart: Regular rate and rhythm, normal S1 and S2, no murmurs. Lungs: CTAB, symmetric chest rise, no use of accessory muscles, 95% spO2 on 1L Abdomen: Soft, nondistended, nontender, positive bowel sounds. ?No guarding or rebound tenderness. Neurologic: Awake, alert. Nonverbal, does not follow commands. Extremities: No edema. Cap refill 2 sec. Skin: No rash or ecchymoses. Objective Labs 05/19/25 05:00 05/19/25 05:00 Labs: Laboratory Results - last 24 hr 05/19/25 05:00 WBC 7.0 RBC 3.07 L Hgb 10.1 L Hct 30.6 L MCV 100 MCH 32.9 MCHC 33.0 RDW Std Deviation 49.9 H Plt Count 170 Neut % (Auto) 55 Lymph % (Auto) 24 Mora % (Auto) 12 Eos % (Auto) 6 Baso % (Auto) 1 Neut # (Auto) 3.9 Lymph # (Auto) 1.7 Mora # (Auto) 0.8 Eos # (Auto) 0.4 Baso # (Auto) 0.1 Immature Gran # (Auto) 0.12 H Absolute Nucleated RBC 0.00 Immature Gran % 2 H Nucleated RBC % 0 Sodium 151 H Potassium 3.7 Chloride 112 H Carbon Dioxide 30.9 Anion Gap 8 BUN 8 L Creatinine 0.6 Estim Creat Clear Calc 72.1 eGFR > 60 BUN/Creatinine Ratio 13 Glucose 90 Calculated Osmolality 298 H Calcium 8.0 L Corrected Calcium 8.8 Phosphorus 2.5 Magnesium 1.6 Total Bilirubin 0.2 L AST 26 ALT 41 Alkaline Phosphatase 124 H Total Protein 5.0 L Albumin 3.0 L Globulin 2.0 L Albumin/Globulin Ratio 1.5 ABG Interpretation ABG results: 05/14/25 05/15/25 10:03 10:23 ABG pH 7.41 ABG pCO2 45 ABG pO2 52 L* ABG HCO3 29 H ABG O2 Saturation 86 L ABG Base Excess 3 VBG pH 7.31 L VBG pCO2 45 VBG pO2 43 VBG Base Excess -4 L Quality Measures Quality Measures none Advance care planning discussed with:: patient Assessment & Plan Assessment Current Active Medications: Generic Name Dose Route Start Last Admin Trade Name Freq PRN Reason Stop Dose Admin Acetaminophen 650 mg 05/14/25 14:36 Acetaminophen 325 Mg Tablet PO 06/13/25 14:09 Q6H PRN Fever >100.4 Acetaminophen 650 mg 05/14/25 14:36 Acetaminophen 325 Mg Tablet PO 06/13/25 14:35 Q6HR PRN PAIN SCALE 1-3 (mild Acetylcysteine 3 ml 05/15/25 13:00 05/19/25 12:34 Acetylcysteine Rt Shannon 10% 4 Ml Nebu INH 06/14/25 12:59 3 ml Q6HRRT JERRY Administration Albuterol/Ipratropium 3 ml 05/15/25 13:00 05/19/25 12:34 Albuterol/Ipratropium (Duoneb) Rt Shannon 3 Ml Nebu INH 06/14/25 12:59 3 ml Q6HRRT JERRY Administration Aspirin 81 mg 05/14/25 15:45 05/19/25 08:53 Aspirin 81 Mg Chew PO 06/13/25 15:44 81 mg DAILY JERRY Administration Azithromycin 500 mg 05/19/25 09:00 05/19/25 08:54 Azithromycin 250 Mg Tablet PO 05/21/25 09:01 500 mg QDAY JERRY Administration Protocol Enoxaparin Sodium 40 mg 05/15/25 09:00 05/19/25 08:54 Enoxaparin Sod Inj 40 Mg/0.4 Ml Syringe SC 05/29/25 08:59 40 mg QDAY JERRY Administration Ceftriaxone Sodium/Dextrose 1 gm in 50 mls @ 100 mls/hr 05/16/25 09:30 05/19/25 08:54 Rocephin/D5w 1gm Iv Premix IV 05/23/25 09:29 100 mls/hr QDAY JERRY Administration Levetiracetam 1,000 mg 05/16/25 21:00 05/19/25 08:54 Levetiracetam 250 Mg Tablet PO 06/15/25 20:59 1,000 mg BID JERRY Administration Levothyroxine Sodium 75 mcg 05/17/25 06:00 05/19/25 06:20 Levothyroxine Sodium 25 Mcg Tablet PO 06/16/25 05:59 75 mcg ACBR JERRY Administration Midodrine 5 mg 05/16/25 10:12 Midodrine 5 Mg Tablet PO 06/14/25 13:59 TID PRN SBP <90 or DBP <55 Montelukast Sodium 10 mg 05/14/25 21:00 05/18/25 21:53 Montelukast Sodium 10 Mg Tablet PO 06/13/25 20:59 10 mg QPM JERRY Administration Pantoprazole Sodium 40 mg 05/19/25 09:00 05/19/25 08:53 Pantoprazole 40 Mg Tablet PO 06/18/25 08:59 40 mg QDAY JERRY Administration Protocol Polyethylene Glycol 17 gm 05/16/25 15:56 Polyethylene Glycol 17 Gm Packet PO 06/15/25 15:59 QDAY PRN constipation Plan Ms. Jensen is a 70-year-old female with PMH of Down syndrome, asthma, hypothyroidism, and seizure disorder who was admitted for acute hypoxic respiratory failure likely 2/2 to community-acquired pneumonia. Upgraded to ICU for pressor requirements. Now off pressors, stable for downgrade to tele. #Community acquired pneumonia #Acute hypoxic respiratory failure - resolved #Sepsis - resolved #Septic shock - resolved Initially presented with shortness of breath, productive cough, lethargic In the ED patient was desatting with hypotension and hypothermia. Upgraded to ICU for septic shock as pt was unresponsive to IVF 3L, required pressor support. Patient was weaned off pressor support and was deemed stable for downgrade to tele 05/16 VSS, spO2 on room air today. Afebrile, no leukocytosis. Lacic acid 4.5 --> 2 Blood cx NGTD at 48 hr, urine cx negative, MRSA screen negative Initial CXR showed b/l PNA, perihilar edema TTE: LVEF 55-60%. Normal LV and RVsize and function. There is grade I diastolic dysfunction. Trace TR. Plan: - Continue midodrine 5 mg TID (PRN for SBP <90 or DBP <55). CTM for bradycardia. - Continue ceftriaxone 1g IV daily (05/16 - 05/23) - Continue azithromycin 500 mg IV qday for atypical pathogen coverage (05/15 - 05/22) - Continue supplemental O2 NC PRN - DuoNebs q6h, Mucomyst q6h - CTM clinical sx #8 mm left renal calculus - r/o on CT #Minimal left hydronephrosis - r/o on CT Seen on abdominal US Continues to make urine post cook removal BUN, Cr WNL CT a/p w/o showed no gross renal calculi, no hydronephrosis, no gross ureteral calculi. Cystitis pattern Plan: - CTM urine output, daily CMP for kidney function #Primary hepatocellular disease #Transaminitis Seen on abdominal US Abdomen mildly distended, no TTP AST 60, ALT 62, Alk phos 188 Hep Bs Ag positive, Hep B core IgM Ab nonreactive. Hep C Ab nonreactive Plan: - Pending Hep Ag confirmation - Consulted ID, appreciate recs #JESSICA - resolved most likely prerenal i/s/o septic shock, resolved with IVF and pressors Plan: - CTM urine output and CMP daily #Leukocytosis - resolved Initially Plan: - CTM with daily CBC #Normocytic anemia Plan: - CTM with daily CBC #Asthma Plan: - Continue home Montelukast #Epilepsy Home med: Keppra XR 1000 mg PO daily Plan: - Keppra 1000 mg PO daily #Hypothyroidism Plan: - Levothyroxine 75 mcg PO daily #Down Syndrome Checklist Dispo: safe discharge back to skilled nursing, pending social worker delinquency prevention Diet: Dysphagia 1 pureed, Ensure plus high protein Bowel Reg: Miralax daily PRN VTE ppx: lovenox 40 mg subQ daily GI ppx: Pantoprazole 40 mg PO daily Pain mgmt: Tylenol Code status: full Plan discussed with Dr. Cook, Dr Sara Andre MD PGY1 Attending Provider Attestation/Addendum Jodie Marshall DO, attest that I was physically present for the torres portions of the service and evaluated the patient with the resident and I reviewed and discussed the case with the resident and agree with the resident's findings and plans of care as documented above Patient seen and evaluated this AM. Pt currently on 1L/NC, no acute distress. Pt remains at baseline mental status. Patient is stable for discharge. Pending appeal. Per nurse, patient desaturated to 85% on room air, but quickly recovered with 1L/NC. No events overnight otherwise.
[2025-05-19] MEDS: MONTELUKAST SODIUM 10 MG TABLET PO (20:37)
--- NOTE | 2025-05-19 20:51 | PC.NURSE ---
called Dr. Jauregui regarding patient's continuing central line care order, per doctor to renew order.
[2025-05-20] VITALS (8 sets, daily range): BP systolic 98–124; BP diastolic 58–82; PULSE 63–84; RESP 15–25; TEMP 36.1–36.5; O2SAT 92–100
[2025-05-20] MEDS: ACETYLCYSTEINE RT SOL 10% 4 ML NEBU 3 ML INH ×2 (01:15→07:42)
[2025-05-20] MEDS: ALBUTEROL/IPRATROPIUM (Duoneb) RT SOL 3 ML NEBU INH ×2 (01:15→07:42)
[2025-05-20] MEDS: LEVOTHYROXINE SODIUM 25 MCG TABLET 75 MCG PO (05:18)
[2025-05-20 06:21] LABS: Basophils # (Auto) 0.1 Thou/mm3 (0.0-0.2); Basophils % (Auto) 1 % (0-2.5); Eosinophils # (Auto) 0.5 Thou/mm3 (0.0-0.5); Eosinophils % (Auto) 6 % (0-10); Hematocrit 31.5 % (36.0-46.0); Hemoglobin 10.2 g/dL (12.0-16.0); Immature Granulocytes Auto 0.10 Thou/mm3 (0.00-0.00); Lymphocytes # (Auto) 1.6 Thou/mm3 (1.0-4.8); Lymphocytes % (Auto) 21 % (10-50); Mean Corpuscular HGB Conc 32.4 g/dl (31.0-37.0); Mean Corpuscular Hemoglobin 32.6 pg (25.0-35.0); Mean Corpuscular Volume 101 fL (80-100); Monocytes # (Auto) 0.8 Thou/mm3 (0.0-0.8); Monocytes % (Auto) 11 % (0-12); Neutrophils # (Auto) 4.6 Thou/mm3 (1.8-7.7); Neutrophils % (Auto) 60 % (37-80); Nucleated Red Blood Cell # 0.00 Thou/mm3 (0.00-0.00); Nucleated Red Blood Cell % 0 /100 WBC (0); Platelet Count 164 Thou/mm3 (140-440); RDW Standard Deviation 49.8 fL (36.4-46.3); Red Blood Count 3.13 Miln/mm3 (4.00-5.20); White Blood Count 7.7 Thou/mm3 (3.6-11.0)
[2025-05-20 07:05] LABS: Alanine Aminotransferase 29 U/L (10-49); Albumin, Serum 2.8 gm/dL (3.4-4.8); Albumin/Globulin Ratio 1.4 (1.2-2.2); Alkaline Phosphatase 115 U/L (46-116); Anion Gap 8 (7-16); Aspartate Amino Transferase 20 U/L (0-34); BUN/Creatinine Ratio 13 Ratio (12-20); Bilirubin,Total 0.2 mg/dL (0.3-1.2); Blood Urea Nitrogen 8 mg/dL (9-23); Calcium 8.1 mg/dL (8.3-10.6); Calcium (Corrected) 9.1 mg/dL (8.5-10.1); Carbon Dioxide 30.3 mMol/L (20.0-31.0); Chloride 108 mMol/L (98-107); Creatinine (Component) 0.6 mg/dL (0.6-1.3); Estimated Creatinine Clearance 61.2 mL/min (>60); Globulin 2.0 gm/dL (2.3-3.5); Glucose 93 mg/dL (74-106); Magnesium 1.6 mg/dL (1.6-2.6); Osmolality,Calculated 288 (275-295); Phosphorous 2.9 mg/dL (2.4-5.1); Potassium 3.6 mMol/L (3.4-5.1); Sodium 146 mMol/L (136-145); Total Protein 4.8 gm/dL (5.7-8.2); eGFR > 60 See Note
[2025-05-20] MEDS: AZITHROMYCIN 250 MG TABLET 500 MG PO (08:31)
[2025-05-20] MEDS: cefTRIAXone/D5w 1gm IV premix 1 GM/50 ML BAG IV (08:31)
[2025-05-20] MEDS: PANTOPRAZOLE 40 MG TABLET PO (08:31)
[2025-05-20] MEDS: ASPIRIN 81 MG CHEW PO (08:31)
[2025-05-20] MEDS: ENOXAPARIN SOD INJ 40 MG/0.4 ML SYRINGE SC (08:31)
--- NOTE | 2025-05-20 08:34 | PC.SS ---
Addendum entered by Ericka Tavares 05/20/25 08:39: SS contacted [facility] Manjinder Camacho [phone] in regards to appeal status, per Manjinder he will be here to chicken picker the pt by noon. Original Note: SS checked Appeal status via online portal: [place] Agrees with termination of Hospital services Liability: Beneficiary Liability Starts on 05/20/2025
--- NOTE | 2025-05-20 09:53 | PC.SS ---
SS was informed by Kayley HE pt dropped down to 88% on RA, SS informed Kayley HE to place note with how much O2 pt was placed on to order O2 prior to her leaving at noon.
--- NOTE | 2025-05-20 09:57 | PC.SS ---
OXYGEN: Pt is discharged in a chronic stable state and has been treated optimally and has other respiratory needs. Oxygen has been ordered due to hypoxia
--- NOTE | 2025-05-20 10:24 | PC.SS ---
SS submitted referral for O2 to [facility] per Manjinder request to keep local to [place]. ELIAZAR not allowing SS to upload documentation. SS reached out to Jamshid and emailed her directly. She stated creative services specialist will be here 90-120min.
--- NOTE | 2025-05-20 11:00 | PC.NURSE ---
PATIENT IS COMFORTABLY RESTING, CHEST RISE AND FALL NOTED. RIGHT IJ REMOVED AT BEDSIDE, PATIENT TOLERATED WELL. POST VITAL SIGNS BP 108/74, HR 74, RR 19, OXYGEN 99% AT 4L NC.
--- NOTE | 2025-05-20 11:25 | ESDS_ITS ---
<Statement entered by Jodie Ruiz DO - 05/21/25 08:40> I, Jodie Ruiz DO, attest that I was physically present for the torres portions of the service and evaluated the patient with the resident and I reviewed and discussed the case with the resident and agree with the resident's findings and plans of care as documented above <Statement entered by Manish Fine MD - 05/20/25 12:23> Patient was examined and case was reviewed with team including attending physician. Note reviewed, I agree with most of its contents and agree with the patient's care as documented by Austin Campa Case discussed with my attending Dr. Sara Fine MD PGY-2 Disclaimer: Despite multiple revisions, due to the dictation software being u Setgo, the document bellow may not be free of grammatical errors including phonetic/typographic errors. However, this does not deter from our commitment to providing health care in the patient's best interest in mind. Planned Discharge Date 05/20/25 DS: Providers Provider Date of admission: 05/14/25 14:07 Primary care physician: Rolando Rosas MD Admitting Provider: Jodie Ruiz DO Attending Provider on Admission: Loree Solano MD Consults: 05/15/25 08:50 Referral Speech Therapy Stat Comment: 05/17/25 13:16 Consult to Infectious Diseases Stat Comment: Hep B Ag reactive, pending confirmation Consulting Provider: Trev Meier Attending Provider on DC: Jodie Ruiz DO Discharging Provider: Austin Campa [facility] MD DS: Diagnosis Problem List Completed Was Problem List Reviewed/Reconciled?: Yes Hospital Course Hospital Course Hospital course: pt is a 70-year-old female with Down syndrome, seizures, asthma, and hypothy roidism was admitted to [facility] on 05/14/25 with acute hypoxic respiratory failure and septic shock from community-acquired pneumonia. She was hypothermic, hypotensive (MAP <65), and lactic acid 4.5, unresponsive to 3 L IV fluids, requiring ICU admission and norepinephrine. Patient was treated for pneumonia with broad-spectrum antibiotics, that were further narrowed to ceftriaxone and azithromycin after negative cultures. She was weaned off pressors, transitioned to PRN midodrine, and JESSICA resolved. Imaging showed mild transaminitis with hepatitis B surface antigen positivity (confirmation pending) and a non-obstructing renal calculus requiring no intervention. Downgraded to telemetry 05/16/25, she remained stable on room air with improving symptoms. Patient remains at baseline mental status. Patient is stable for discharge and can complete rest of PO antibiotics at home. No further need for midodrine. Patient is medically and physically stable for discharge. Patient will be discharged on supplemental Oxygen as needed. Diagnosis #Community-acquired pneumonia #Acute hypoxic respiratory failure-resolved #Sepsis-resolved #Septic shock-resolved #Acute kidney injury #Primary hepatocellular disease #Hepatitis B surface antigen positive #Left renal calculus #Normocytic anemia #Asthma #Seizure disorder #Hypothyroidism #Down syndrome Discharge Plan: Follow-up with your primary care physician within 1 week of discharge. You have been prescribed Augmentin which is an antibiotic for treatment of your pneumonia. Should your symptoms recur or worsen patient is instructed to return to the ER. Case discussed with my senior resident Dr. Joey Fine and my attending Dr. Ruiz. -Austin Campa (Medical Student) Status at Discharge Functional status at discharge: independent ambulation Overall status at discharge: patient is back to baseline Time Spent with Patient Time attestation: Total time spent providing and/or coordinating discharge services: Time spent: Greater than 30 minutes Exam Vital Signs Temp Pulse Resp BP Pulse Ox O2 Del Method O2 Flow Rate 97 F 74 17 109/67 94 L Nasal Cannula 1 05/20/25 08:00 05/20/25 11:22 05/20/25 08:00 05/20/25 08:00 05/20/25 08:00 05/20/25 08:00 05/20/25 08:00 Narrative Exam General: Awake, appears to make eye contact. Interactive HEENT: Alopecia. Normocephalic, atraumatic, mucous membranes moist. Heart: Regular rate and rhythm, normal S1 and S2, no murmurs. Lungs: CTAB, symmetric chest rise, no use of accessory muscles, 95% spO2 on 1L Abdomen: Soft, mildly distended, nontender, positive bowel sounds. No guarding or rebound tenderness. Neurologic: Awake, alert. Nonverbal, does not follow commands. Extremities: No edema. Cap refill 2 sec. Skin: No rash or ecchymoses. Discharge Plan Plan Patient Disposition: HOME (Self Care) Patient condition on transfer: Stable Care Plan Goals: Follow-up with your primary care physician within 1 week of discharge. You have been prescribed Augmentin which are antibiotics for treatment of your pneumonia. You have been given supplemental oxygen as needed use 1-2L Should your symptoms recur or worsen patient is instructed to return to the ER. Prescriptions/Referrals Prescriptions/Med Rec: New amoxicillin-pot clavulanate 875-125 mg tablet 1 tab PO BID 1 Days Qty: 2 0RF Continued methenamine hippurate [Hiprex] 1 gram tablet 1 g PO QDAY quetiapine 100 mg tablet 100 mg PO HS levothyroxine 75 mcg tablet 75 mcg PO DAILY docusate sodium 100 mg capsule 100 mg PO BID aspirin 81 mg tablet,chewable 81 mg PO DAILY montelukast 10 mg tablet 10 mg PO DAILY loratadine 10 mg tablet 10 mg PO DAILY calcium carbonate-vitamin D3 600 mg-10 mcg (400 unit) tablet 1 tab PO BID levetiracetam [Keppra XR] 500 mg Tablet Extended Release 24 Hr 1,000 mg PO QMORNING Rx Instructions: two tablets by mouth in the morning 1000mg three tablets by mouth at bedtime 1500mg cranberry extract [Cranberry Concentrate] 500 mg Capsule 500 mg PO QDAY Rx Instructions: administer with meals polyethylene glycol 3350 17 gram/dose powder 17 g PO QDAY Referrals: Rolando Rosas MD [Primary Care Provider] - Patient/Caregiver Discharge Instructions Discharge Activity: activity as tolerated Education Materials: ED Pneumonia (Adult) Print Language: Martiniquais Stand Alone Forms: Laurie Award Info., Patient Portal Info Letter Discharge Order Discharge Orders: Discharge (Routine); Ordered 05/20/25 Ordered By: Manish Fine Quality Discharge Quality Measures none
--- NOTE | 2025-05-20 11:49 | PC.NURSE ---
OXYGEN DELIVER TO PATIENTS ROOM. LOANS CONSULTANT SIGN FOR DELIVERY.
--- NOTE | 2025-05-20 11:56 | PC.SS ---
SS met with [facility] staff at bedside. Equipment delivered an signed for. SS attempted to contact Manjinder in regards to delivery and pt waiting for pickup, no answer. VM unavailable as it is full.
== END 2025-05-20 12:39 | disposition home or self-care (01) | DRG 871 ==
LOC: SERX 13:51 → SERHOLD 14:50 → S2SX 05-15 07:47 → S2NX 05-16 15:45 → S3SX 05-18 19:30
PROVIDERS: Student in an Organized Health Care Education/Training Program; Admitting Provider Internal Medicine; Emergency Provider Family Medicine; PCP Family Medicine; Visit Provider Internal Medicine
DX: A41.9 Sepsis, unspecified organism (principal); G93.41 Metabolic encephalopathy; J18.9 Pneumonia, unspecified organism; J96.01 Acute respiratory failure with hypoxia; R65.21 Severe sepsis with septic shock; B16.9 Acute hepatitis B without delta-agent and without hepatic coma; E87.20 Acidosis, unspecified; N17.9 Acute kidney failure, unspecified; Q90.9 Down syndrome, unspecified; J45.909 Unspecified asthma, uncomplicated; E03.9 Hypothyroidism, unspecified; I95.9 Hypotension, unspecified; T68.XXXA Hypothermia, initial encounter; D64.9 Anemia, unspecified; G40.909 Epilepsy, unspecified, not intractable, without status epilepticus; K76.9 Liver disease, unspecified; N20.0 Calculus of kidney; R13.10 Dysphagia, unspecified; Z79.890 Hormone replacement therapy; Z79.899 Other long term (current) drug therapy
CPT/HCPCS: 36415; 36600; 71045; 74176; 76700; 80053; 80061; 80074; 80202; 80307; 81001; 82803; 83605; 83735; 83880; 84100; 84132; 84145; 84443; 84484; 85025; 85379; 85610; 85730; 87040; 87081; 87086; 87205; 87340; 87400; 87811; 92526; 92610; 93005; 93225; 93306; 94640; 96361; 96365; 96366; 96375; 99285; A4314; A9270; J0456; J0461; J0696; J1644; J1650; J1720; J1953; J2470; J2543; J3370; J3375; J3490; J7030; J7050; J7120; J7512

== ENCOUNTER 2025-05-23 11:13 | Inpatient (IN) | payer MEDICARE, MEDICAID, SELFPAY ==
[2025-05-23] VITALS (33 sets, daily range): BP systolic 87–154; BP diastolic 45–89; PULSE 58–88; RESP 8–27; TEMP 35.9–36.9; O2SAT 97–100; BMI 23.5
--- NOTE | 2025-05-23 11:15 | EKG_ITS ---
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
[2025-05-23] MEDS: levETIRAcetam INJ 100 MG/ML VIAL 5ML 1000 MG IVP (11:23)
--- NOTE | 2025-05-23 11:25 | XR_ITS ---
Examination: CTA chest with intravenous contrast 2-D reconstructions 3-D reconstructions, vascular Date and time of exam: May 23, 2025, 1630 hours INDICATIONS: Chest pain shortness of breath today CTDI: vol (mGy) 19.8 DLP: (mGycm) 420 Technique: Multiple axial sections of the thorax have been obtained. 3 mm slice thickness, from below the hemidiaphragms to above the apices of the lungs. Mediastinal and lung density settings have been obtained. 2-D sagittal and coronal reconstructions. 3-D angiographic renderings, 3-D volume renderings, 3D post processing, vascular maximum intensity projections obtained. Contrast administered is 100 cc Isovue-370 intravenous. Low dose protocols were performed. One or more of the following dose reduction techniques were used; automated exposure control, adjustment of the mA and/or KV according to patient size, use of iterative reconstruction technique. Findings: No thoracic aortic aneurysmal dilatation or dissection No pulmonary artery filling defects Large left pleural effusion with significant atelectasis left lung Moderate right pleural effusion Significant vascular congestion No visualized liver lesion Gallbladder wall appears thickened Spleen is not enlarged No pancreatic edema Kidneys partially visualized no hydronephrosis Mild to moderate enlargement cardiac contour Again noted severe compression fracture L1 Impression : Negative for pulmonary artery emboli Mild heart failure Large left pleural effusion with significant atelectasis left lung Moderate right pleural effusion
--- NOTE | 2025-05-23 11:25 | XR_ITS ---
Examination: CT brain head without contrast. 2-D sagittal coronal reconstructions Date and time of exam:May 23, 2025 1416 hours INDICATIONS: Altered mental status today COMPARISON: September 23, 2023 CTDI: vol (mGy):39.4 DLP: (mGycm):761 Technique: Multiple CT axial sections of the brain have been obtained, 5 mm slice thickness. Contrast has not been administered. 2-D sagittal, coronal reconstructions have been obtained Low dose protocols were performed. One or more of the following dose reduction techniques were used; automated exposure control, adjustment of the mA and/or KV according to patient size, use of iterative reconstruction technique. Findings: Stable mild to moderate ventricular enlargement. Intra-axial or extra-axial hemorrhage density is not seen. No mass effect or midline shift Basal cisterns are not remarkable. Fourth ventricle is midline. Cranial vault intact. Impression: Negative for acute hemorrhage, mass effect or midline shift Advise clinical correlation follow-up accordingly
--- NOTE | 2025-05-23 11:28 | PD.EDSEIZ ---
ED Seizures RME/HPI General Chief Complaint: Seizure Stated Complaint: SEIZURE Time Seen by Provider: 05/23/25 11:25 Arrival date/time: 05/23/25 11:13 Limitations: altered mental status and other (Chronically ill-appearing, with acute decompensation) RME / HPI RME / HPI Narrative: 70 year old female with history of down syndrome, seizures (on Keppra), asthma, hypothyroidism presents to the ED [facility]IB[facility] from a residential [facility] for evaluation following seizures today. Per medics, the caregiver reported that the patient experienced two tonic-clonic seizures, one last night and one this morning, each lasting approximately 1 minute with 10 breakthrough seizures . On their arrival, the patient was postictal, unresponsive, and saturating 97% on 4L of nasal cannula oxygen. En route to the ED, the patient?s respiratory rate decreased, and medic began BVM ventilation. On arrival, the patient was unable to answer questions or follow commands. Notably, at baseline patient is able to speak in 1-2 word sentences, answer yes/no questions, and follow commands. Additionally, EMS reported that the caregiver stated the patient had recently been admitted to the ICU for pneumonia and was discharged 3 days ago on home oxygen. I spoke with patient's caregiver Lisa, and she said that the patient was discharged and she felt that the patient still was having a hard time breathing and so requested that the patient stay in additional day at which point she wants. She has followed up with her primary care doctor her primary care doctor gave her an additional dose of doxycycline as an outpatient. Patient at baseline does have breakthrough tonic-clonic seizures. Does not have any rescue medications for seizures. Takes Keppra and an additional antiepileptic Related Data Home Medications ?Medication ?Instructions ?Recorded ?Confirmed aspirin 81 mg chewable tablet 81 mg PO DAILY Elevated Lipids 09/23/23 05/14/25 calcium 600 mg (as 1 tab PO BID 09/23/23 05/14/25 carbonate)-vitamin D3 10 mcg (400 unit) tablet docusate sodium 100 mg capsule 100 mg PO BID Constipation 09/23/23 05/14/25 levothyroxine 75 mcg tablet 75 mcg PO DAILY 09/23/23 05/14/25 loratadine 10 mg tablet 10 mg PO DAILY 09/23/23 05/14/25 montelukast 10 mg tablet 10 mg PO DAILY 09/23/23 05/14/25 quetiapine 100 mg tablet 100 mg PO HS 09/23/23 05/14/25 cranberry extract 500 mg capsule 500 mg PO QDAY 12/04/23 05/14/25 (Cranberry Concentrate) levetiracetam 500 mg 1,000 mg PO QMORNING 03/14/24 05/14/25 tablet,extended release 24 hr (Keppra XR) methenamine hippurate 1 gram 1 g PO QDAY 08/10/24 05/14/25 tablet (Hiprex) polyethylene glycol 3350 17 17 g PO QDAY 03/13/25 05/14/25 gram/dose oral powder Allergies Allergy/AdvReac Type Severity Reaction Status Date / Time No Known Allergies Allergy Unverified 03/12/25 16:06 Review of Systems Review of Systems ROS Unobtainable: unobtainable due to mental status and unobtainable due to medical condition Past Medical History Past Medical History NEUROLOGIC: Positive Neurological Disorders and Seizures CARDIAC: Positive Hypercholesterolemia RESPIRATORY: Positive Asthma GASTROINTESTINAL: Positive Gastrointestinal Bleed ENT: Positive Cataracts ENDOCRINE: Positive Hyperthyroidism and Hypothyroidism OTHER HISTORY: Positive Hospitalization, Down Syndrome and Developmental Delay Family History FAMILY HISTORY: Negative Family Cardiac Disorders Surgical History SURGICAL: Negative Cardiac Surgery, Endocrine Surgery, Ear Surgery, Abdominal Surgery, Nephrectomy, Joint Replacement, Mastectomy or Vasectomy Social History SMOKING STATUS: Smoker, status unknown ED Exam General Limitations: Present altered mental status and other (Chronically ill-appearing, with acute decompensation) General appearance: Present lethargic and other (Patient protecting airway, breathing spontaneously, not following commands) Head Head exam: Present atraumatic Eye Eye exam: Present PERRL and other (At patient's baseline, patient has baseline strabismus) ENT ENT exam: Present normal exam Neck Neck exam: Present normal inspection Chest Chest inspection: Present normal inspection Respiratory Respiratory exam: Present respiratory distress and other (Decreased breath sounds on the left side, coarse bilaterally) Cardiovascular Cardiovascular exam: Present normal rhythm Abdominal Exam Abdominal exam: Present soft; Absent distention, tenderness or guarding External exam: Present normal external exam Extremities Exam Extremities exam: Present normal inspection Neurological Exam Neurological exam: Present alert and other (Patient is confused, not following commands, spontaneously open eyes, spontaneously breathing pupils equal round and reactive to light) Skin Skin exam: Present warm and rash (Patient with erythematous rash at the neck area) Course Quality Measures none Orders Category Date Time Status Bedside COVID-19 Antigen Test NOW Care 05/23/25 17:29 Active Bedside Influenza A&B Antigen Test NOW Care 05/23/25 17:[address] Screening NOW Care 05/23/25 11:25 Active EKG (ED ONLY) *Do not use* NOW Care 05/23/25 11:15 Completed Rodriguez [Urinary Catheter] X1 Care 05/23/25 12:15 Active Insert IV NOW Care 05/23/25 11:14 Active Nasopharyngeal Suction NOW Care 05/23/25 13:[address] angio chest Stat Exams 05/23/25 11:[address] head/brain wo con Stat Exams 05/23/25 11:25 Completed EKG (ED Only) Stat Exams 05/23/25 11:15 Draft XR chest 1V portable Stat Exams 05/23/25 12:46 Completed BNP [B-Type Natriuretic Peptide] Stat Lab 05/23/25 12:06 Completed Blood Culture (Lab) Stat Lab 05/23/25 11:59 Received CBC Stat Lab 05/23/25 12:06 Completed CMP [Comprehensive Metabolic Panel] Stat Lab 05/23/25 12:06 Completed Creatine Kinase Stat Lab 05/23/25 12:06 Completed Heparin-Induced Platelet Ab* Stat Lab 05/23/25 12:06 Received Lactic Acid [Lactate (Lactic Acid)] Stat Lab 05/23/25 12:06 Completed Lactic Acid, 3 HR Stat Lab 05/23/25 15:47 Completed Procalcitonin Stat Lab 05/23/25 12:06 Completed UA, C/S IF [Urinalysis, C/S if Indicated] Stat Lab 05/23/25 12:09 Completed Midazolam Inj [Versed Inj] Med 05/23/25 11:23 Active 4 mg IVP X1 PRN Piper/Tazo Inj [Zosyn Inj] 4.5 gm Med 05/23/25 11:26 Discontinued Sodium Chloride 0.9% (Pop) [NS 0.9% mini bag] 100 ml IV X1 Ringers Lactated 1000 ml [Lactated Ringers] 1,000 ml Med 05/23/25 12:39 Discontinued IV 999 mls/hr Vancomycin Pharmacy to Dose Med 05/23/25 11:26 Discontinued 1 each IV NOW ONE Vancomycin/Water 1Gm Ivpb 200 ml Med 05/23/25 11:45 Discontinued IV X1 levETIRAcetam INJ [Keppra Inj] Med 05/23/25 11:07 Discontinued 1,000 mg .ROUTE .STK-MED ONE levETIRAcetam INJ [Keppra Inj] Med 05/23/25 11:14 Discontinued 1,000 mg IVP X1 ONE Vital Signs Vital signs: Vital Signs Temperature 97.5 F 05/23/25 12:13 Pulse Rate 69 05/23/25 12:13 Respiratory Rate 14 05/23/25 12:13 Blood Pressure 133/84 H 05/23/25 12:13 Pulse Oximetry (%) 100 05/23/25 12:13 Oxygen Delivery Method Nasal Cannula 05/23/25 12:13 Oxygen Flow Rate 3 05/23/25 12:13 Seizure MDM Narrative MDM Narrative:: Patient is a 70-year-old female with medical history notable for Down syndrome, epilepsy, recent hospitalization for hypoxic respiratory failure secondary to pneumonia, oxygen dependent at send emergency department concerns for multiple breakthrough seizures. Vital signs and exam as listed. Patient presented confused, protecting her airway, not following commands however not in distress. No seizure-like activity appreciated. Patient without any nystagmus, is responding to painful stimuli. Placed on a school lunch monitor, ordered CT brain, CT chest, labs, broad-spectrum antibiotics as well as gentle fluid resuscitation. Patient had a breakthrough tonic-clonic seizure while in the emergency department. Provided patient with Versed, Keemersonra. Patient has remained hemodynamically stable, without recurrence of seizure-like activity while in the emergency department. Patient appears weak. Is requiring 2 L by nasal cannula. Not hypotensive nor tachycardic. Patient without any leukocytosis, no left shift no acute electrolyte abnormality BNP 121 procalcitonin 0.1 urinalysis without evidence of infection. CT brain unremarkable, chest x-ray with severe diffuse left lung pneumonia. In comparison to prior chest x-ray significantly worse. CT angio of the chest with evidence of Large left pleural effusion with significant atelectasis left lung. Given patient's worsening pleural effusion, and breakthrough seizures, concern the patient may require admission for IV antibiotics for ongoing management of her pneumonia, and possible bronchoscopy. Patient may also have aspirated. Will consult hospitalist for admission. Discussed case with hospitalist, kindly accepted patient for admission. Patient data External records reviewed:: [facility] previous records (I reviewed admission from 05/14/2025 through 05/20/2025 ) Clinical information provided by:: EMS Social determinants that could affect healthcare access:: housing ([facility]idential [facility]) Patient has the following chronic illnesses:: down syndrome, seizures (on Keppra), asthma, hypothyroidism How is presenting disease/condition affected by chronic disease/condition?: exacerbated by Evaluation data The following diagnostics were reviewed and interpreted by me:: lab results, radiology exam(s) and EKG tracing(s) (as noted above ) Lab and/or radiology exams considered but not ordered:: None Interpretation Summary: Ordering Physician: Kayley Vuong MD Date of Service: 05/23/25 Procedure(s): CT angio chest Accession Number(s): [id number] cc: Jose Manuel Croft MD; Rolando Rosas MD; Kayley Vuong MD~ Examination: CTA chest with intravenous contrast 2-D reconstructions 3-D reconstructions, vascular Date and time of exam: May 23, 2025, 1630 hours INDICATIONS: Chest pain shortness of breath today CTDI: vol (mGy) 19.8 DLP: (mGycm) 420 Technique: Multiple axial sections of the thorax have been obtained. 3 mm slice thickness, from below the hemidiaphragms to above the apices of the lungs. Mediastinal and lung density settings have been obtained. 2-D sagittal and coronal reconstructions. 3-D angiographic renderings, 3-D volume renderings, 3D post processing, vascular maximum intensity projections obtained. Contrast administered is 100 cc Isovue-370 intravenous. Low dose protocols were performed. One or more of the following dose reduction techniques were used; automated exposure control, adjustment of the mA and/or KV according to patient size, use of iterative reconstruction technique. Findings: No thoracic aortic aneurysmal dilatation or dissection No pulmonary artery filling defects Large left pleural effusion with significant atelectasis left lung Moderate right pleural effusion Significant vascular congestion No visualized liver lesion Gallbladder wall appears thickened Spleen is not enlarged No pancreatic edema Kidneys partially visualized no hydronephrosis Mild to moderate enlargement cardiac contour Again noted severe compression fracture L1 Impression : Negative for pulmonary artery emboli Mild heart failure Large left pleural effusion with significant atelectasis left lung Moderate right pleural effusion Dictated By: Jose Manuel Croft MD Signed By: <Electronically signed by Jose Manuel Croft MD in OV> 05/23/25 9165 Ordering Physician: Kayley Vuong MD Date of Service: 05/23/25 Procedure(s): CT head/brain wo con Accession Number(s): [id number] cc: Jose Manuel Croft MD; Rolando Rosas MD; Kayley Vuong MD~ Examination: CT brain head without contrast. 2-D sagittal coronal reconstructions Date and time of exam:May 23, 2025 1416 hours INDICATIONS: Altered mental status today COMPARISON: September 23, 2023 CTDI: vol (mGy):39.4 DLP: (mGycm):761 Technique: Multiple CT axial sections of the brain have been obtained, 5 mm slice thickness. Contrast has not been administered. 2-D sagittal, coronal reconstructions have been obtained Low dose protocols were performed. One or more of the following dose reduction techniques were used; automated exposure control, adjustment of the mA and/or KV according to patient size, use of iterative reconstruction technique. Findings: Stable mild to moderate ventricular enlargement. Intra-axial or extra-axial hemorrhage density is not seen. No mass effect or midline shift Basal cisterns are not remarkable. Fourth ventricle is midline. Cranial vault intact. Impression: Negative for acute hemorrhage, mass effect or midline shift Advise clinical correlation follow-up accordingly Dictated By: Jose Manuel Croft MD Signed By: <Electronically signed by Jose Manuel Croft MD in OV> 05/23/25 1424 Ordering Physician: Kayley Vuong MD Date of Service: 05/23/25 Procedure(s): XR chest 1V portable Accession Number(s): [id number] cc: Jose Manuel Croft MD; Rolando Rosas MD; Kayley Vuong MD~ Examination: AP chest single view Technique one AP portable semiupright chest single view Date and time: May 23, 2025, 1254 hours INDICATIONS: Shortness of breath today. FINDINGS: Severe diffuse left lung pneumonia Normal heart size Mild vascular congestion Prominent osteopenia IMPRESSION: Severe diffuse left lung pneumonia Dictated By: Jose Manuel Croft MD Signed By: <Electronically signed by Jose Manuel Croft MD in OV> 05/23/25 1307 Medications / Prescriptions Medications or Prescriptions considered but not ordered:: None Medication administrations:: Medication Administration History Midazolam HCl (Midazolam Inj 1 Mg/Ml Vial 2 Ml) 4 mg IVP X1 PRN PRN Reason: Seizure Activity Stop: 05/24/25 11:22 Last Admin: 05/23/25 11:55 Dose: 4 mg Documented By: YAMILA Comments: med myriam narvaez rn Discontinued Medications Piperacillin Sod/Tazobactam (Sod 4.5 gm/ Sodium Chloride) 100 mls @ 200 mls/hr IV X1 ONE Stop: 05/23/25 11:55 Last Infusion: 05/23/25 13:10 Dose: Infused Documented By: Admin: 05/23/25 12:37 Dose: 200 mls/hr Documented By: YAMILA Vancomycin HCl (Vancomycin/Water 1gm Ivpb) 200 mls @ 120 mls/hr IV X1 ONE Stop: 05/23/25 13:24 Last Admin: 05/23/25 13:14 Dose: 120 mls/hr Documented By: YAMILA Lactated Ringer's (Lactated Ringers) 1,000 mls @ 999 mls/hr IV .Q1H1M ONE Stop: 05/23/25 13:39 Last Infusion: 05/23/25 12:46 Dose: Infused Documented By: Admin: 05/23/25 11:50 Dose: 999 mls/hr Documented By: YAMILA Levetiracetam (Levetiracetam Inj 100 Mg/Ml Vial 5ml) 1,000 mg IVP X1 ONE Stop: 05/23/25 11:15 Last Admin: 05/23/25 11:23 Dose: 1,000 mg Documented By: YAMILA Levetiracetam (Levetiracetam Inj 100 Mg/Ml Vial 5ml) Confirm Administered Dose 1,000 mg .ROUTE .STK-MED ONE Stop: 05/23/25 11:08 Last Admin: 05/23/25 11:23 Dose: Not Given Documented By: YAMILA Non-Admin Reason: Duplicate Medication on eMAR Pharmacy Consult (Vancomycin Pharmacy To Dose 1 Each Each) 1 each IV NOW ONE Stop: 05/23/25 11:27 Last Admin: 05/23/25 13:17 Dose: 1 each Documented By: YAMILA See above Consultations Consultation(s) initiated? (list below): Yes Consultation #1 (Physician, Specialty, Details): I spoke with hospitalist team C for admission. Diagnosis Seizure Differential Diagnosis: intractable seizure disorder, focal seizure, generalized seizure and epileptic seizure Most likely diagnosis given after review of the tests above:: Pneumonia Seizure Admission Indicated Admission indicated?: indicated Admission Request Was there a request for admission?: Yes Admission Attestation Admission request attestation: Discussed case with [] from Hospitalist service regarding admission. Discussed patients ED course, exam findings, labs, and radiology results. The Hospitalist [agrees,declines] to accept the patient for admission. Disposition Plan Disposition Plan: Admit Critical Care Time Critical Care Time Critical Care Time: Yes Total Critical Care Time (min.): 80 Attestation: The high probability of sudden, clinically significant deterioration in the patient's condition required the highest level of my preparedness to intervene urgently. The services I provided to this patient were to treat and/or prevent clinically significant deterioration. Services included the following: chart data review, reviewing nursing notes and/or old charts, documentation time, clinical program consultant collaboration regarding findings and treatment options, medication orders and management, direct patient care, vital sign assessments and ordering, interpreting and reviewing diagnostic studies and lab tests. Aggregate critical care time includes only time during which I was engaged in work directly related to the patient's care, as described above, whether at bedside or elsewhere in the Emergency Department. It did not include time spent performing other reported procedures or the services of residents, students, nurses or physician assistants. Discharge Plan Plan Patient Disposition: Admit Acute Care w/in Hospital Prescriptions/Referrals Prescriptions/Med Rec: No Action methenamine hippurate [Hiprex] 1 gram tablet 1 g PO QDAY quetiapine 100 mg tablet 100 mg PO HS levothyroxine 75 mcg tablet 75 mcg PO DAILY docusate sodium 100 mg capsule 100 mg PO BID aspirin 81 mg tablet,chewable 81 mg PO DAILY montelukast 10 mg tablet 10 mg PO DAILY loratadine 10 mg tablet 10 mg PO DAILY calcium carbonate-vitamin D3 600 mg-10 mcg (400 unit) tablet 1 tab PO BID levetiracetam [Keppra XR] 500 mg Tablet Extended Release 24 Hr 1,000 mg PO QMORNING Rx Instructions: two tablets by mouth in the morning 1000mg three tablets by mouth at bedtime 1500mg cranberry extract [Cranberry Concentrate] 500 mg Capsule 500 mg PO QDAY Rx Instructions: administer with meals polyethylene glycol 3350 17 gram/dose powder 17 g PO QDAY Referrals: Rolando Rosas MD [Primary Care Provider] - In 1 week Problem List Clinical Impression: Pneumonia, Seizure Patient/Caregiver Discharge Instructions Print Language: Tamazight Stand Alone Forms: Laurie Award Info., Patient Portal Info Letter
[2025-05-23] MEDS: RINGERS LACTATED 1000 ML 1,000 ML 999 ML IV (11:50)
[2025-05-23] MEDS: MIDAZOLAM INJ 1 MG/ML VIAL 2 ML 4 MG IVP (11:55)
[2025-05-23 12:14] LABS: Collection Type, Urine Catheter
[2025-05-23 12:18] LABS: Basophils # (Auto) 0.1 Thou/mm3 (0.0-0.2); Basophils % (Auto) 1 % (0-2.5); Eosinophils # (Auto) 0.2 Thou/mm3 (0.0-0.5); Eosinophils % (Auto) 3 % (0-10); Hematocrit 35.9 % (36.0-46.0); Hemoglobin 11.6 g/dL (12.0-16.0); Immature Granulocytes Auto 0.07 Thou/mm3 (0.00-0.00); Lactate (Lactic Acid) 4.2 mMol/L (0.4-2.0); Lymphocytes # (Auto) 1.8 Thou/mm3 (1.0-4.8); Lymphocytes % (Auto) 27 % (10-50); Mean Corpuscular HGB Conc 32.3 g/dl (31.0-37.0); Mean Corpuscular Hemoglobin 32.4 pg (25.0-35.0); Mean Corpuscular Volume 100 fL (80-100); Monocytes # (Auto) 0.9 Thou/mm3 (0.0-0.8); Monocytes % (Auto) 14 % (0-12); Neutrophils # (Auto) 3.7 Thou/mm3 (1.8-7.7); Neutrophils % (Auto) 54 % (37-80); Nucleated Red Blood Cell # 0.00 Thou/mm3 (0.00-0.00); Nucleated Red Blood Cell % 0 /100 WBC (0); Platelet Count 295 Thou/mm3 (140-440); RDW Standard Deviation 47.7 fL (36.4-46.3); Red Blood Count 3.58 Miln/mm3 (4.00-5.20); White Blood Count 6.8 Thou/mm3 (3.6-11.0)
[2025-05-23 12:26] LABS: Bilirubin,Urine Negative (Negative); Blood,Urine Negative (Negative); Clarity,Urine Clear (Clear/Hazy); Color,Urine Colorless (Lt Yel-Yel); Glucose, Urine Negative (Negative); Ketones,Urine Negative (Negative); Leukocyte Esterase,Urine Negative (Negative); Nitrite,Urine Negative (Negative); PH,Urine 7.0 (5.0-7.0); Protein,Urine Negative (Neg - Trace); Specific Gravity,Urine 1.011 (1.001-1.035); Urobilinogen,Urine Negative mg/dL (0.0-1.0)
[2025-05-23 12:27] LABS: Culture Indicated,Urine Not Indicated; RBC,Urine 1 /hpf (0-3); Squamous Epithelial Cell,Urine 1 /hpf (0-5); WBC,Urine 1 /hpf (0-5)
[2025-05-23] MEDS: PIPER/TAZO INJ 4.5 GM in SODIUM CHLORIDE 0.9% (POP) 100 ML IV (12:37)
[2025-05-23 12:43] LABS: Alanine Aminotransferase 20 U/L (10-49); Albumin, Serum 3.3 gm/dL (3.4-4.8); Albumin/Globulin Ratio 1.4 (1.2-2.2); Alkaline Phosphatase 120 U/L (46-116); Anion Gap 11 (7-16); Aspartate Amino Transferase 20 U/L (0-34); BUN/Creatinine Ratio 11 Ratio (12-20); Bilirubin,Total 0.2 mg/dL (0.3-1.2); Blood Urea Nitrogen 8 mg/dL (9-23); Calcium 8.6 mg/dL (8.3-10.6); Calcium (Corrected) 9.2 mg/dL (8.5-10.1); Carbon Dioxide 31.3 mMol/L (20.0-31.0); Chloride 101 mMol/L (98-107); Creatine Kinase 35 U/L (34-171); Creatinine (Component) 0.7 mg/dL (0.6-1.3); Estimated Creatinine Clearance 51.3 mL/min (>60); Globulin 2.3 gm/dL (2.3-3.5); Glucose 100 mg/dL (74-106); Osmolality,Calculated 283 (275-295); Potassium 3.4 mMol/L (3.4-5.1); Procalcitonin 0.10 ng/ml (0.0-0.49); Sodium 143 mMol/L (136-145); Total Protein 5.6 gm/dL (5.7-8.2); eGFR > 60 See Note
--- NOTE | 2025-05-23 12:46 | XR_ITS ---
Examination: AP chest single view Technique one AP portable semiupright chest single view Date and time: May 23, 2025, 1254 hours INDICATIONS: Shortness of breath today. FINDINGS: Severe diffuse left lung pneumonia Normal heart size Mild vascular congestion Prominent osteopenia IMPRESSION: Severe diffuse left lung pneumonia
[2025-05-23 12:53] LABS: B-Type Natriuretic Peptide 121 pg/mL (0-100)
[2025-05-23] MEDS: VANCOMYCIN/WATER 1GM IVPB 200 ML IV (13:14)
[2025-05-23 15:12] LABS: Reflex Lactate? Y
[2025-05-23 15:58] LABS: Lactic Acid, 3 HR 1.1 mMol/L (0.4-2.0)
[2025-05-23 19:05] LABS: Base Excess 6 (-3-3); HCO3 33 mEq/L (20-26); Inspired O2, VO2 Liters 2 L/min; Inspired Oxygen, FIO2 21 %; O2 Saturation 98 % (91-98); PCO2 55 mmHg (32.0-48.0); PO2 99 mmHg (83-108); pH, Arterial 7.38 (7.35-7.45)
[2025-05-23 19:06] LABS: Thyroid Stimulating Hormone 2.59 uIU/mL (0.55-4.78)
[2025-05-23 19:11] LABS: Allen Test Performed/OK; Puncture Site Right Radial
--- NOTE | 2025-05-23 19:21 | PD.RESEVENT ---
Documentation for date of: 05/23/25 Event Note Event Note: Patient evaluated in the ED, per caregiver Lisa ([phone]) patient had 3 breakthrough seizures in the care facility. In the ED she had another seizure and was in a post-ictal state. She was administered midazolam, keppra, zosyn and vancomycin. CT head unremarkable, CXR showed severe diffuse L lung PNA CTA chest large left pleural effusion w/ atelectasis and moderate R lung pleural effusion. BNP:121, Lactic acid: 1.1. Her vitals signs were stable and she was 100% O2 on 2 L. Upon exam patient was GCS 7 nonresponsive and not protecting her airway. she was found to have +2 pitting edema of the legs and required chest suction. Patient admitted to the ICU for intubation and management of breakthrough seizures. ICU attending made aware and will continue to monitor the patient as well. Caregiver Lisa was called and stated patient normally says hello and will eat her food (ate and drank at dinner yesterday), states that patient has recent bruising on her body (R shoulder, trapezius muscle, and abdomen) from heparin injections from recent hospital admission. Patient seen and evaluated with Attending Dr. Tao and supervising residents Dr. Lowe Note written by Gibson Silva PGY-1
--- NOTE | 2025-05-23 19:34 | PC.NURSE ---
ICU team at bedside with Caregiver.
[2025-05-23 19:39] LABS: T4 (Thyroxine) 6.4 mcg/dL (4.5-10.9)
[2025-05-23] MEDS: NYSTATIN PWD 15 GM BTL TOP (21:01)
[2025-05-23] MEDS: SODIUM CHLORIDE 0.9% 1000 ML 1,000 ML 50 ML IV (21:01)
[2025-05-23] MEDS: PIPER/TAZO 3.375 GM PREMIX 3.375 GM/50 ML BAG IV (21:10)
--- NOTE | 2025-05-23 22:30 | PD.RESHP ---
Documentation for date of: 05/23/25 HPI History of Present Illness Chief complaint: Breakthrough seizures History of present illness: 70 F with PMHx significant for Down syndrome, seizures, asthma, hypothyroidism presenting with chief complaint of breakthrough seizures. History taken from chart review, ED signout. Patient was discharged from [facility] 05/20/2025 after treatment for pneumonia, sent home with p.o. antibiotics. Patient had 2 witnessed tonic-clonic seizures at [facility] prompting return to ED. Caregiver also concerned patient seems to continue to have hard time breathing since discharge. At baseline patient is able to speak 1?2 word sentences, answer yes/no questions. Spoke with Dr. Mendoza, patient neurologist, recommend admission, will see patient tomorrow. ED COURSE: Labs significant for: WBC 6.8, lactic acid 4.2 downtrended to 1.1, Pro-Varun negative. Imaging significant for: Head CT negative. Chest CTA showing large left pleural effusion with moderate right pleural effusion. No PE. Patient received 1 g Keppra, 4 mg Versed, 1 L bolus lactated Ringer's, vancomycin and Zosyn in the ED. Patient saturating well on 2 L via nasal cannula. PMH: Down syndrome, seizures, asthma, hypothyroidism PSH: Unknown SH: Unknown Allergies:?NKDA Medications: aspirin 81 mg, calcium carbonate-vitamin D3, cranberry extract 500 mg, Docusate 100 mg, Levetiracetam 1000 mg, Levothyroxine 75 mg, loratadine 10 mg, Montelukast 10mg, quetiapine 100mg, polyethylene glycole Review of Systems Review of Systems Systems Reviewed: All systems reviewed, normal except as documented Past Medical History Past Medical History Comments PMH COMMENT: PMH: Down syndrome, seizures, asthma, hypothyroidism PSH: Unknown SH: Unknown Allergies:?NKDA Medications: aspirin 81 mg, calcium carbonate-vitamin D3, cranberry extract 500 mg, Docusate 100 mg, Levetiracetam 1000 mg, Levothyroxine 75 mg, loratadine 10 mg, Montelukast 10mg, quetiapine 100mg, polyethylene glycole Exam Vital Signs Temp Pulse Resp BP Pulse Ox O2 Del Method O2 Flow Rate 98.2 F 63 17 134/75 H 100 Nasal Cannula 2 05/23/25 19:19 05/23/25 19:19 05/23/25 19:19 05/23/25 19:19 05/23/25 19:19 05/23/25 19:19 05/23/25 19:19 Narrative Exam PE: Gen: Down syndrome. Does not verbally respond, eyes open spontaneously and track. HEENT: NCAT, PERRLA, EOMI, MMM, anicteric conjunctivae. Appears to have fungal infection along back. CVS: normal S1 and S2. RRR. No M/R/G. Resp: Coarse rhonchi throughout all lung hodges. Abd: soft, non-tender, non-distended. BS+ in all 4 quadrants. MSK: No edema or rash. Right shoulder bruise, potentially caused by seizure. Neuro: Does not withdraw from pain. Does not follow commands. Results: Labs 05/23/25 12:06 05/23/25 12:06 Labs: Short CBC 05/23/25 Range/Units 12:06 WBC 6.8 (3.6-11.0) Thou/mm3 Hgb 11.6 L (12.0-16.0) g/dL Hct 35.9 L (36.0-46.0) % Plt Count 295 D (140-440) Thou/mm3 BMP 05/23/25 12:06 Sodium 143 Potassium 3.4 Chloride 101 Carbon Dioxide 31.3 H BUN 8 L Creatinine 0.7 Glucose 100 Calcium 8.6 Cardiac Enzymes 05/23/25 Range/Units 12:06 Total Creatine Kinase 35 (34-171) U/L Liver Function 05/23/25 Range/Units 12:06 Total Bilirubin 0.2 L (0.3-1.2) mg/dL AST 20 (0-34) U/L ALT 20 (10-49) U/L Alkaline Phosphatase 120 H (46-116) U/L Albumin 3.3 L (3.4-4.8) gm/dL Urine 05/23/25 Range/Units 12:09 Urine Color Colorless A (Lt Yel-Yel) Urine Clarity Clear (Clear/Hazy) Urine pH 7.0 (5.0-7.0) Ur Specific [place] 1.011 (1.001-1.035) Urine Protein Negative (Neg - Trace) Urine Glucose (UA) Negative (Negative) ABG Interpretation ABG results: 05/23/25 19:00 ABG pH 7.38 ABG pCO2 55 H ABG pO2 99 ABG HCO3 33 H ABG O2 Saturation 98 ABG Base Excess 6 H Quality Measures Quality Measures VTE prophylaxis Advance care planning discussed with:: patient Medications Home Medications and Allergies Home Medications ?Medication ?Instructions ?Recorded ?Confirmed ?Type aspirin 81 mg chewable tablet 81 mg PO DAILY Elevated Lipids 09/23/23 05/14/25 History calcium 600 mg (as 1 tab PO BID 09/23/23 05/14/25 History carbonate)-vitamin D3 10 mcg (400 unit) tablet docusate sodium 100 mg capsule 100 mg PO BID Constipation 09/23/23 05/14/25 History levothyroxine 75 mcg tablet 75 mcg PO DAILY 09/23/23 05/14/25 History loratadine 10 mg tablet 10 mg PO DAILY 09/23/23 05/14/25 History montelukast 10 mg tablet 10 mg PO DAILY 09/23/23 05/14/25 History quetiapine 100 mg tablet 100 mg PO HS 09/23/23 05/14/25 History cranberry extract 500 mg capsule 500 mg PO QDAY 12/04/23 05/14/25 History (Cranberry Concentrate) levetiracetam 500 mg 1,000 mg PO QMORNING 03/14/24 05/14/25 History tablet,extended release 24 hr (Keppra XR) methenamine hippurate 1 gram 1 g PO QDAY 08/10/24 05/14/25 History tablet (Hiprex) polyethylene glycol 3350 17 17 g PO QDAY 03/13/25 05/14/25 History gram/dose oral powder Allergies Allergy/AdvReac Type Severity Reaction Status Date / Time No Known Allergies Allergy Unverified 03/12/25 16:06 Visit Medications Acetaminophen (Acetaminophen Supp 650 Mg Supp) 650 mg [place] Q6HR PRN PRN Reason: Fever > 100.4 or pain Stop: 06/22/25 20:43 Enoxaparin Sodium (Enoxaparin Sod Inj 40 Mg/0.4 Ml Syringe) 40 mg SC QDAY JERRY Stop: 06/07/25 08:59 Sodium Chloride (Ns) 1,000 mls @ 50 mls/hr IV .Q20H JERRY Stop: 05/25/25 12:44 Last Admin: 05/23/25 21:01 Dose: 50 mls/hr Piperacillin/Tazobactam/Dextrose (Zosyn) 3.375 gm in 50 mls @ 12.5 mls/hr IV Q8HR JERRY; Protocol Stop: 05/31/25 05:59 Levetiracetam (Levetiracetam Inj 100 Mg/Ml Vial 5ml) 1,000 mg IVP Q12HR JERRY Stop: 06/23/25 08:59 Midazolam HCl (Midazolam Inj 1 Mg/Ml Vial 2 Ml) 4 mg IVP X1 PRN PRN Reason: Seizure Activity Stop: 05/24/25 11:22 Last Admin: 05/23/25 11:55 Dose: 4 mg Nystatin (Nystatin Pwd 15 Gm Btl) 0 gm TOP BID JERRY Stop: 06/23/25 08:59 Ondansetron HCl (Ondansetron Inj 2 Mg/Ml Inj 2 Ml) 4 mg IVP Q6H PRN; Protocol PRN Reason: NAUSEA OR VOMITING Stop: 06/22/25 20:43 Discontinued Medications Piperacillin Sod/Tazobactam (Sod 4.5 gm/ Sodium Chloride) 100 mls @ 200 mls/hr IV X1 ONE Stop: 05/23/25 11:55 Last Infusion: 05/23/25 13:10 Dose: Infused Vancomycin HCl (Vancomycin/Water 1gm Ivpb) 200 mls @ 120 mls/hr IV X1 ONE Stop: 05/23/25 13:24 Last Infusion: 05/23/25 14:55 Dose: Infused Lactated Ringer's (Lactated Ringers) 1,000 mls @ 999 mls/hr IV .Q1H1M ONE Stop: 05/23/25 13:39 Last Infusion: 05/23/25 12:46 Dose: Infused Piperacillin/Tazobactam/Dextrose (Zosyn) 3.375 gm in 50 mls @ 100 mls/hr IV X1 ONE Stop: 05/23/25 21:29 Last Infusion: 05/23/25 22:06 Dose: Infused Levetiracetam (Levetiracetam Inj 100 Mg/Ml Vial 5ml) 1,000 mg IVP X1 ONE Stop: 05/23/25 11:15 Last Admin: 05/23/25 11:23 Dose: 1,000 mg Nystatin (Nystatin Pwd 15 Gm Btl) 0 gm TOP X1 ONE Stop: 05/23/25 17:42 Last Admin: 05/23/25 21:01 Dose: 1 tube Pharmacy Consult (Vancomycin Pharmacy To Dose 1 Each Each) 1 each IV NOW ONE Stop: 05/23/25 11:27 Last Admin: 05/23/25 13:17 Dose: 1 each Assessment & Plan Plan 70 F with PMHx significant for Down syndrome, seizures, asthma, hypothyroidism presenting with chief complaint of breakthrough seizures, admitted for breakthrough seizures and significant pleural effusion. #Breakthrough seizures #Seizure disorder Patient has known history of seizure disorder. Per caregiver, patient 2 witnessed tonic-clonic seizures in 24 hours prior to admission. Patient does not appear to have fully recovered back to baseline, per chart review patient at baseline is able to answer simple yes/no questions. Currently patient eyes open spontaneously, tracks, but does not verbally respond, does not follow commands. Patient follows with Dr. Mendoza outpatient. Patient received 1 g Keppra and 4 mg Versed in ED. - Dr. Mendoza consulted, appreciate recommendations - Keppra 12 mg IV twice daily - EEG ordered, follow-up - Seizure precautions - Telemonitoring #PNA with significant pleural effusion #Asthma Patient was discharged from [facility] 05/20 after being treated for pneumonia. Caregiver reports patient is continue to have difficulty breathing. Chest CTA showed large left pleural effusion and moderate right pleural effusion. Patient saturating well on 2 L via nasal cannula. Significant rhonchi on exam. Unclear if pneumonia with failure of treatment or new HAP. - O2 as needed maintain sats 92% - Vancomycin pharmacy dosing (started 05/23) - Zosyn 3.375 g IV every 8 hours (started 05/24) - Suctioning as needed - Chest PT as needed - DuoNebs as needed - Consider thoracentesis #Fungal infection Patient has large erythematous rash with small whitish plaques along base of neck, appears to be fungal rash. - Topical nystatin - Wound care #Hypothyroidism Patient history as stated. Patient currently n.p.o. with aspiration precautions. - Consider resuming home meds when appropriate DVT prophylaxis: Lovenox GI prophylaxis: None Diet: N.p.o. with aspiration precautions Lines: Peripheral IV Code status: Full code Plan of care discussed with attending Dr. Slick Vasquez MD PGY?2 Attending Provider Attestation/Addendum I have examined the patient, reviewed labs and imaging findings, discussed the case with the resident(s), and reviewed entered orders. I agree with the plan of care as outlined in this note, with these additional summaries/recommendations: After examination of the patient and review of the clinical data, I feel that this patient needs admission to the hospital for further treatment and evaluation. Patient is a 70-year-old female with a medical history of Down syndrome, asthma, hypothyroidism, vitamin D deficiency, seasonal allergies, and seizure disorder who presents to [facility] emergency department on 05/23/2025 with chief complaint of breakthrough seizure. Patient and patient's caregiver seen at bedside. Caregiver reports she has been caring for the patient for approximately 20 years. Patient is conserved with Dr. Weiss. At baseline patient will say hello sometimes but relatively nonverbal and cannot feed herself. History obtained from caregiver. Patient appears postictal and GCS currently 9 and patient appears to be protecting her airway. Patient diagnosed with breakthrough seizure. Patient was given loading dose of Keppra 1000 mg IV x 1 and Versed 4 mg IV x 1. Resume home Keppra. Consult neurology for recommendations. Seizure precautions. As needed Versed for seizure-like activity. NPO. Order EEG. Patient also diagnosed with aspiration pneumonia and bilateral pleural effusions. Continue IV Zosyn and follow-up blood culture results. Imaging also revealed large left pleural effusion and moderate right pleural effusion. Human Service Coordinator reports she has never had a thoracentesis. We will discuss with patient's conservatorship if they would like to proceed with thoracentesis. Per oncology nurse patient would likely not tolerate that procedure and become combative. Lactic acidosis present which has already resolved and returned to 1.1 which is consistent with seizures. Patient noted to have erythematous & well demarcated rash around her neck and inner thighs extending into her pelvis. Human Service Coordinator reports this was present last admission and prescribed barrier cream. She reports overall rash has improved although still appears significant. I suspect a fungal component and will prescribe topical nystatin. Continue home inhalers as needed for history of asthma. Continue home levothyroxine when able. Human Service Coordinator updated on the plan and in agreement. All questions answered to satisfaction. Please see residents note for additional details and management. Dr. Slick MD
[2025-05-24] VITALS (16 sets, daily range): BP systolic 113–176; BP diastolic 67–103; PULSE 64–78; RESP 14–100; TEMP 36–36.6; O2SAT 95–100
[2025-05-24] MEDS: Vancomycin Inj 1,000 MG in SODIUM CHLORIDE 0.9% 250 ML 250 ML 120 MG IV (00:45)
--- NOTE | 2025-05-24 03:03 | RESP.EEG ---
EEG COMPLETED AND READY FOR REVIEW.
[2025-05-24] MEDS: PIPER/TAZO 3.375 GM PREMIX 3.375 GM/50 ML BAG IV (05:07)
[2025-05-24 06:02] LABS: Basophils # (Auto) 0.1 Thou/mm3 (0.0-0.2); Basophils % (Auto) 1 % (0-2.5); Eosinophils # (Auto) 0.2 Thou/mm3 (0.0-0.5); Eosinophils % (Auto) 4 % (0-10); Hematocrit 36.4 % (36.0-46.0); Hemoglobin 12.1 g/dL (12.0-16.0); Immature Granulocytes Auto 0.04 Thou/mm3 (0.00-0.00); Lymphocytes # (Auto) 1.4 Thou/mm3 (1.0-4.8); Lymphocytes % (Auto) 22 % (10-50); Mean Corpuscular HGB Conc 33.2 g/dl (31.0-37.0); Mean Corpuscular Hemoglobin 32.6 pg (25.0-35.0); Mean Corpuscular Volume 98 fL (80-100); Monocytes # (Auto) 0.6 Thou/mm3 (0.0-0.8); Monocytes % (Auto) 9 % (0-12); Neutrophils # (Auto) 4.1 Thou/mm3 (1.8-7.7); Neutrophils % (Auto) 64 % (37-80); Nucleated Red Blood Cell # 0.00 Thou/mm3 (0.00-0.00); Nucleated Red Blood Cell % 0 /100 WBC (0); Platelet Count 275 Thou/mm3 (140-440); RDW Standard Deviation 46.7 fL (36.4-46.3); Red Blood Count 3.71 Miln/mm3 (4.00-5.20); White Blood Count 6.5 Thou/mm3 (3.6-11.0)
[2025-05-24 06:03] LABS: INR 1.1 (0.9-1.3); Partial Thromboplastin Time 26.9 Seconds (22.0-36.0); Prothrombin Time 11.7 Seconds (9.0-12.2)
[2025-05-24 06:30] LABS: Alanine Aminotransferase 24 U/L (10-49); Albumin, Serum 3.3 gm/dL (3.4-4.8); Albumin/Globulin Ratio 1.4 (1.2-2.2); Alkaline Phosphatase 134 U/L (46-116); Anion Gap 11 (7-16); Aspartate Amino Transferase 28 U/L (0-34); BUN/Creatinine Ratio 9 Ratio (12-20); Bilirubin,Total 0.2 mg/dL (0.3-1.2); Blood Urea Nitrogen 6 mg/dL (9-23); Calcium 8.7 mg/dL (8.3-10.6); Calcium (Corrected) 9.3 mg/dL (8.5-10.1); Carbon Dioxide 30.5 mMol/L (20.0-31.0); Chloride 100 mMol/L (98-107); Creatinine (Component) 0.7 mg/dL (0.6-1.3); Estimated Creatinine Clearance 52.7 mL/min (>60); Globulin 2.3 gm/dL (2.3-3.5); Glucose 75 mg/dL (74-106); Magnesium 1.5 mg/dL (1.6-2.6); Osmolality,Calculated 277 (275-295); Phosphorous 2.8 mg/dL (2.4-5.1); Potassium 4.0 mMol/L (3.4-5.1); Sodium 141 mMol/L (136-145); Total Protein 5.6 gm/dL (5.7-8.2); eGFR > 60 See Note
[2025-05-24] MEDS: SODIUM CHLORIDE RT 10% 15 ML NEBU 5 ML INH (08:33)
[2025-05-24] MEDS: metroNIDAZOLE/NS 500 MG IVPB 500 MG/100 ML BAG 200 MG IV ×3 (09:47→22:04)
[2025-05-24] MEDS: levETIRAcetam INJ 100 MG/ML VIAL 5ML 1000 MG IVP (09:48)
[2025-05-24] MEDS: ENOXAPARIN SOD INJ 40 MG/0.4 ML SYRINGE SC (09:48)
[2025-05-24] MEDS: CEFEPIME INJ 2 GM in SODIUM CHLORIDE 0.9% (Popper) 50 ML IV ×3 (09:49→22:04)
[2025-05-24] MEDS: FUROSEMIDE INJ 10 MG/ML 4ML VIAL 40 MG IVP (10:18)
[2025-05-24 10:56] LABS: LDH (Lactate Dehydrogenase) 268 U/L (120-246)
--- NOTE | 2025-05-24 10:58 | PC.SS ---
SS spoke to patient's halfway to obtain history. Patient is developmentally delayed and resides in a 24 hour halfway. Patient resides at [facility]. Patient is not conserved but [facility] makes all healthcare decisions. Dr. Weiss @ [phone]. [facility] case reviewer is Neda Sparklezahida @ [phone]. Lisa, is [facility] community outreach manager and provided history of patient. Lisa @ [phone]. Patient is ambulatory. Patient does not use any [facility]. intermediate provides transportation. Patient follows with Dr. Alegre for seizures. PCP: Dr. Rosas. Last appt. was last week. Patient pharmacy: [facility]. Discharge plan is to return to [facility]. Patient is pending a thoracentesis today. Medical decision maker: [facility]- Dr. Weiss transportation: halfway to provide
--- NOTE | 2025-05-24 11:10 | PCS.ST ---
Swallow evaluation completed. See report for details. Baseline PO skills. Hold diet until fully awake. Recommend Dysphagia 1, Mildly thick liquids.
[2025-05-24] MEDS: NYSTATIN PWD 15 GM BTL TOP ×2 (11:17→22:00)
--- NOTE | 2025-05-24 12:45 | ESPR_ITS ---
<Statement entered by Angy Lowe MD - 05/25/25 05:06> Patient was seen and examined at bedside. I agree on the assessment and plan on this note. - Patient's plan and care discussed with my attending, Dr. Dinh Lowe MD Internal Medicine PGY-3 Documentation for date of: 05/24/25 Subjective Subjective Interval history: No acute events overnight. Patient seen and examined at bedside. Vitals and labs reviewed. Patient was sleeping peacefully in bed this morning. Exam Vital Signs Temp Pulse Resp BP Pulse Ox O2 Del Method O2 Flow Rate 97.4 F 71 18 124/103 H 97 Nasal Cannula 1 05/24/25 12:00 05/24/25 12:00 05/24/25 12:00 05/24/25 12:00 05/24/25 12:00 05/24/25 12:00 05/24/25 12:00 Narrative Exam Gen: Down syndrome. Does not verbally respond, eyes open spontaneously and track. HEENT: NCAT, PERRLA, EOMI, MMM, anicteric conjunctivae. Appears to have fungal infection along neck/back. CVS: normal S1 and S2. RRR. No M/R/G. Resp: Coarse rhonchi throughout all lung hodges. Abd: soft, non-tender, non-distended. BS+ in all 4 quadrants. MSK: Neck/inner thigh erythematous rash. Right shoulder bruise, potentially caused by seizure. Neuro: Does not withdraw from pain. Does not follow commands. Objective Labs 05/24/25 04:49 05/24/25 04:49 Labs: Laboratory Results - last 24 hr 05/23/25 05/23/25 05/23/25 12:06 15:47 19:00 WBC RBC Hgb Hct MCV MCH MCHC RDW Std Deviation Plt Count Neut % (Auto) Lymph % (Auto) [place] % (Auto) Eos % (Auto) Baso % (Auto) Neut # (Auto) Lymph # (Auto) [place] # (Auto) Eos # (Auto) Baso # (Auto) Immature Gran # (Auto) Absolute Nucleated RBC Immature Gran % Nucleated RBC % PT INR APTT Puncture Site Right Radial ABG pH 7.38 ABG pCO2 55 H ABG pO2 99 ABG HCO3 33 H ABG O2 Saturation 98 ABG Base Excess 6 H Oxygen Liter Flow 2 FiO2 21 Sodium Potassium Chloride Carbon Dioxide Anion Gap BUN Creatinine Estim Creat Clear Calc eGFR BUN/Creatinine Ratio Glucose Calculated Osmolality Lactic Acid 1.1 Calcium Corrected Calcium Phosphorus Magnesium Total Bilirubin AST ALT Alkaline Phosphatase Lactate Dehydrogenase B-Natriuretic Peptide 121 H Total Protein Albumin Globulin Albumin/Globulin Ratio TSH 2.59 Thyroxine (T4) 6.4 05/24/25 04:49 WBC 6.5 RBC 3.71 L Hgb 12.1 Hct 36.4 MCV 98 MCH 32.6 MCHC 33.2 RDW Std Deviation 46.7 H Plt Count 275 Neut % (Auto) 64 Lymph % (Auto) 22 [place] % (Auto) 9 Eos % (Auto) 4 Baso % (Auto) 1 Neut # (Auto) 4.1 Lymph # (Auto) 1.4 [place]ley # (Auto) 0.6 Eos # (Auto) 0.2 Baso # (Auto) 0.1 Immature Gran # (Auto) 0.04 H Absolute Nucleated RBC 0.00 Immature Gran % 1 H Nucleated RBC % 0 PT 11.7 INR 1.1 APTT 26.9 D Puncture Site ABG pH ABG pCO2 ABG pO2 ABG HCO3 ABG O2 Saturation ABG Base Excess Oxygen Liter Flow FiO2 Sodium 141 Potassium 4.0 D Chloride 100 Carbon Dioxide 30.5 Anion Gap 11 BUN 6 L Creatinine 0.7 Estim Creat Clear Calc 52.7 L eGFR > 60 BUN/Creatinine Ratio 9 L Glucose 75 Calculated Osmolality 277 Lactic Acid Calcium 8.7 Corrected Calcium 9.3 Phosphorus 2.8 Magnesium 1.5 L Total Bilirubin 0.2 L AST 28 ALT 24 Alkaline Phosphatase 134 H Lactate Dehydrogenase 268 H B-Natriuretic Peptide Total Protein 5.6 L Albumin 3.3 L Globulin 2.3 Albumin/Globulin Ratio 1.4 TSH Thyroxine (T4) ABG Interpretation ABG results: 05/23/25 19:00 ABG pH 7.38 ABG pCO2 55 H ABG pO2 99 ABG HCO3 33 H ABG O2 Saturation 98 ABG Base Excess 6 H Quality Measures Quality Measures VTE prophylaxis Advance care planning discussed with:: patient and other Assessment & Plan Assessment Current Active Medications: Generic Name Dose Route Start Last Admin Trade Name Freq PRN Reason Stop Dose Admin Acetaminophen 650 mg 05/23/25 20:44 Acetaminophen Supp 650 Mg Supp SD 06/22/25 20:43 Q6HR PRN Fever > 100.4 or pain Enoxaparin Sodium 40 mg 05/24/25 09:00 05/24/25 09:48 Enoxaparin Sod Inj 40 Mg/0.4 Ml Syringe SC 06/07/25 08:59 40 mg QDAY JERRY Administration Cefepime HCl 2 gm/ Sodium 50 mls @ 100 mls/hr 05/24/25 08:03 05/24/25 09:49 Chloride IV 05/31/25 08:02 100 mls/hr Q8HR JERRY Administration Metronidazole 500 mg in 100 mls @ 200 mls/hr 05/24/25 08:03 05/24/25 09:47 Flagyl 500 Mg Iv IV 05/31/25 08:02 200 mls/hr Q8HR JERRY Administration Levetiracetam 1,000 mg 05/24/25 09:00 05/24/25 09:48 Levetiracetam Inj 100 Mg/Ml Vial 5ml IVP 06/23/25 08:59 1,000 mg Q12HR JERRY Administration Levothyroxine Sodium 75 mcg 05/24/25 10:05 05/24/25 10:21 Levothyroxine Sodium 25 Mcg Tablet PO 06/23/25 10:04 Not Given ACBR JERRY Nystatin 0 gm 05/24/25 09:00 05/24/25 11:17 Nystatin Pwd 15 Gm Btl TOP 06/23/25 08:59 15 gm BID JERRY Administration Ondansetron HCl 4 mg 05/23/25 20:44 Ondansetron Inj 2 Mg/Ml Inj 2 Ml IVP 06/22/25 20:43 Q6H PRN NAUSEA OR VOMITING Protocol Pharmacy Consult 1 each 05/24/25 09:00 Vancomycin Pharmacy To Dose 1 Each Each IV 06/23/25 08:59 QDAY PRN PROTOCOL Plan 70 F with PMHx significant for Down syndrome, seizures, asthma, hypothyroidism presenting with chief complaint of breakthrough seizures, admitted for breakthrough seizures and significant pleural effusion. #Breakthrough seizures #Seizure disorder Patient has known history of seizure disorder. Per caregiver, patient 2 witnessed tonic-clonic seizures in 24 hours prior to admission. Patient does not appear to have fully recovered back to baseline, per chart review patient at baseline is able to answer simple yes/no questions. Currently patient eyes open spontaneously, tracks, but does not verbally respond, does not follow commands. Patient follows with Dr. Mendoza outpatient. Patient received 1 g Keppra and 4 mg Versed in ED. - Dr. Mendoza consulted, appreciate recommendations - Keppra 1500 mg IV q12hr - Xcorpi 100 mg po qd will be delivered and given from patient care secretary (non- formulary). - EEG taken, follow-up - Seizure precautions - Telemonitoring #PNA with significant pleural effusion #Asthma Patient was discharged from [facility] 05/20 after being treated for pneumonia. Caregiver reports patient is continue to have difficulty breathing. Chest CTA showed large left pleural effusion and moderate right pleural effusion. Patient saturating well on 2 L via nasal cannula. Significant rhonchi on exam. Unclear if pneumonia with failure of treatment or new HAP. - O2 as needed maintain sats 92% - Flagyll 500 mg IV q8hr - Cefepime 2 gm IV q8hr - Vancomycin pharmacy dosing - Sputum induction prn ordered, culture and gram stain ordered for it - Thoracentesis ordered with pleural amylase, glucose, LDH, protein, cell count diff, culture w/ MADELAINE & gram stain, fluid cytology. - Will report Light's Criteria results regarding exud. vs trans. pleural fluid once results are in. - Suctioning as needed - Chest PT as needed - DuoNebs as needed #HFpEF Echo done 05/16/2025 showing grade I diastolic dysfunction. Estimated EF at 55- 60%, estimated RVSP, 42 mmHg. Patient has some signs of fluid overload. - Given Lasix 40 mg IV x1 - Strict I/O's - Weights qd - Fluid Restriction 1500 ml #Fungal infection Patient has large erythematous rash with small whitish plaques along base of neck and inner thighs, appears to be fungal rash. - Topical nystatin - Wound care #Hypothyroidism Patient history as stated. Patient currently n.p.o. with aspiration precautions. - Restarted home Levothyroxine 75 mcg PO ACBR DVT prophylaxis: Lovenox GI prophylaxis: None Diet: N.p.o. with aspiration precautions Lines: Peripheral IV Code status: Full code Patient plan of care was discussed with the attending physician, Dr. Tao & senior resident Dr. Chrissy Coleman MD PGY-1 Attending Provider Attestation/Addendum I have discussed and was present for the essential components of the history, physical examination, diagnosis, and treatment plan with the resident. I agree with the patient's care as documented by the resident and amended herein by me. Maged Tao DO. Although this document has been carefully reviewed, there may still be some phonetic and other typographical errors. These errors are purely grammatical due to imperfections in the software program and should not be construed in any way to compromise the substance of the patient's medical care during this visit. Patient seen and evaluated this AM. No acute events overnight, the patient was on 2 L nasal cannula, SpO2 100% this morning. Labs largely unremarkable. The patient did have a rapid response earlier this afternoon due to hypoxia, possible mucous plug as the patient coughed and dislodge what ever was blocking her airway, she was also suctioned and SpO2 immediately went back up to 100% however the patient's work of breathing was increased. I made the decision to place the patient on BiPAP for now. We did give the patient a dose of Lasix 40 mg IV x 1, urine output has been copious nearly 4 L thus far. Thoracentesis has been ordered however patient may not need it by the time she gets down there her output remains copious. Neurology consulted, appreciate recommendations, EEG performed, read pending. Will continue vancomycin, cefepime and Flagyl at this time for left-sided pneumonia. Seizure threshold likely lowered from acute illness, namely pneumonia however appreciate neurology recommendations. Blood and sputum cultures pending.
--- NOTE | 2025-05-24 14:16 | PD.RESCONSUL ---
HPI Data of Consult Requesting Physician: Jose Juan Tao DO Admitting Provider: Usama Kruger MD Attending Provider: Jose Juan Tao DO Primary Care Provider: Rolando Rosas MD Consult Narrative History of present illness: CC: Seizure Patient is a 70 year old female with a past medical history of Down's Syndrome, hx of Seizures on Keppra and Xcopri, and history of hypothyroidism. Patient presented to the emergency room via EMS with chief complain of multple seizures witness by caregivers. Per caregiver, patient developed short spams, then developed a tonic-clonic seizure that lasted about 20 seconds. Patient was noted to have shortness of breath during seizure, followed by confused stated. Patient then appeared more tired than usual and sleepy. Positive for urinary incontinence. NO tongue biting (no teeth). Patient was then brought to the emergency room given concern to seizure. ER Course WBC 6.8, lactic acid 4.2 downtrended to 1.1, Pro-Varun negative. Imaging significant for: Head CT negative. Chest CTA showing large left pleural effusion with moderate right pleural effusion. No PE. Patient received 1 g Keppra, 4 mg Versed, 1 L bolus lactated Ringer's, vancomycin and Zosyn in the ED. Patient saturating well on 2 L via nasal cannula. PMH: Down syndrome, seizures, asthma, hypothyroidism PSH: Unknown SH: Unknown Allergies: NKDA Medications: aspirin 81 mg, calcium carbonate-vitamin D3, cranberry extract 500 mg, Docusate 100 mg, Levetiracetam 1000 mg AM & 1500 HS mg, Xcorpi 50-->100 mg once dialy (recently increased) Levothyroxine 75 mg, loratadine 10 mg, Montelukast 10mg, quetiapine 100mg, polyethylene glycole RR response noted per chart review for hypoxia, patient desated to low 80s. Bipap added per chart review, x-ray obtained, lasix x 1 given. Thoracentesis ordered. Neurology Consulted given breakthrough seizure. cc:: cc: Jose Juan Tao DO Review of Systems Review of Systems Narrative Review of Systems: General appearance: NO weight change, NO fatigue, NO weakness, NO fever, NO chills, NO night sweats, No cough Skin: NO rash, NO itching, NO sores, NO moles HEENT: NO Trauma, NO nausea, NO vomiting, NO visual changes, NO blurry vision, NO double vision, NO tinnitus, NO vertigo, NO ear discharge, NO rhinorrhea, NO stuffiness, NO sneezing, NO allergy, NO epistaxis. NO Hoarseness, NO sore throat, NO swollen neck. Cardiac: NO Palpitations, NO dyspnea on exertion, NO orthopnea, NO paroxysmal nocturnal dyspnea, NO edema Respiratory: NO Shortness of Breath, NO Wheezing, NO Cough, NO Sputum, NO hemoptysis GI:NO appetite, NO nausea, NO vomiting, NO dysphagia, NO changes in bowel frequency, NO stool color, NO diarrhea, NO constipation, NO hemetemesis, NO hemorrhoids, NO melena, NO hematechezia, NO abdominal pain, NO jaundice Renal: NO frequency, NO hesitancy, NO urgency, NO hematuria, NO nocturia, NO incontinence MSK: NO muscle weakness, NO gout, NO arthritis, NO muscle stiffness Neuro: NO headaches, YES tremors, NO weakness, NO paralysis, Yes seizures, NO loss of consciousness, NO numbness. Hem: NO anemia, NO easy bruising/bleeding, NO petechiae, NO purpura Endo: NO heat/cold intolerance, NO excessive sweating, NO polyuria, NO polydipsia, NO polyphagia, NO thyroid problems, NO diabetes Pysch: NO mood, NO anxiety, NO depression Exam Vital Signs Temp Pulse Resp BP Pulse Ox O2 Del Method O2 Flow Rate 97.4 F 71 18 124/103 H 97 Nasal Cannula 1 05/24/25 12:05/24/25 12:05/24/25 12:05/24/25 12:05/24/25 12:05/24/25 12:05/24/25 12:00 Narrative Exam General Appearance: Alert & Oriented X0, well-nourished [sex] who is lying in bed in no acute distress, saturating on 2 liters at 96%, no increased work of breathing noted HEENT: Skull symmetrical and atraumatic. Conjunctivae pin and moist. Pupils equal, round, reactive to light and accommodation (PERRL). External ear without lesion or discharge. Straight, nares patient, mucosa pink, no discharge. No thyroid nodule appreciated. No cervical lymphadenopathy. Cardio: Normal Rate and Rhythm with S1 and S2 heart sounds. No murmurs or extra heart sounds auscultated. No bruits on carotid auscultation. No peripheral edema or cyanosis. Lungs: Symmetric with good expansion. Chest and back non-tender. Decreased breath sounds noted wtih rhonchi. Abdomen: Non-tender, Non-distended, Normal Reactive Bowel Sounds Neuro: Yes Alert, NO cooperative, NO oriented to person, NO place, and NO time. Speech clear. appears non-verbal. withdrawals to painful stimuli, contracted. Results Labs 05/24/25 04:49 05/24/25 04:49 Labs: Short CBC 05/24/25 Range/Units 04:49 WBC 6.5 (3.6-11.0) Thou/mm3 Hgb 12.1 (12.0-16.0) g/dL Hct 36.4 (36.0-46.0) % Plt Count 275 (140-440) Thou/mm3 BMP 05/24/25 04:49 Sodium 141 Potassium 4.0 D Chloride 100 Carbon Dioxide 30.5 BUN 6 L Creatinine 0.7 Glucose 75 Calcium 8.7 Liver Function 05/24/25 Range/Units 04:49 Total Bilirubin 0.2 L (0.3-1.2) mg/dL AST 28 (0-34) U/L ALT 24 (10-49) U/L Alkaline Phosphatase 134 H (46-116) U/L Albumin 3.3 L (3.4-4.8) gm/dL ABG Interpretation ABG results: 05/23/25 19:00 ABG pH 7.38 ABG pCO2 55 H ABG pO2 99 ABG HCO3 33 H ABG O2 Saturation 98 ABG Base Excess 6 H Quality Measures Quality Measures VTE prophylaxis Advance care planning discussed with:: patient Medications Home Medications and Allergies Home Medications ?Medication ?Instructions ?Recorded ?Confirmed ?Type aspirin 81 mg chewable tablet 81 mg PO DAILY Elevated Lipids 09/23/23 05/24/25 History calcium 600 mg (as 1 tab PO BID 09/23/23 05/24/25 History carbonate)-vitamin D3 10 mcg (400 unit) tablet docusate sodium 100 mg capsule 100 mg PO BID Constipation 09/23/23 05/24/25 History levothyroxine 75 mcg tablet 75 mcg PO DAILY 09/23/23 05/24/25 History loratadine 10 mg tablet 10 mg PO DAILY 09/23/23 05/24/25 History montelukast 10 mg tablet 10 mg PO DAILY 09/23/23 05/24/25 History quetiapine 100 mg tablet 100 mg PO HS 09/23/23 05/24/25 History cranberry extract 500 mg capsule 500 mg PO QDAY 12/04/23 05/24/25 History (Cranberry Concentrate) levetiracetam 500 mg 1,000 mg PO QMORNING 03/14/24 05/24/25 History tablet,extended release 24 hr (Keppra XR) methenamine hippurate 1 gram 1 g PO QDAY 08/10/24 05/24/25 History tablet (Hiprex) polyethylene glycol 3350 17 17 g PO QDAY 03/13/25 05/24/25 History gram/dose oral powder Allergies Allergy/AdvReac Type Severity Reaction Status Date / Time No Known Allergies Allergy Unverified 03/12/25 16:06 Visit Medications Acetaminophen (Acetaminophen Supp 650 Mg Supp) 650 mg OK Q6HR PRN PRN Reason: Fever > 100.4 or pain Stop: 06/22/25 20:43 Enoxaparin Sodium (Enoxaparin Sod Inj 40 Mg/0.4 Ml Syringe) 40 mg SC QDAY [facility] Stop: 06/07/25 08:59 Last Admin: 05/24/25 09:48 Dose: 40 mg Cefepime HCl 2 gm/ Sodium (Chloride) 50 mls @ 100 mls/hr IV Q8HR JERRY Stop: 05/31/25 08:02 Last Admin: 05/24/25 09:49 Dose: 100 mls/hr Metronidazole (Flagyl 500 Mg Iv) 500 mg in 100 mls @ 200 mls/hr IV Q8HR JERRY Stop: 05/31/25 08:02 Last Admin: 05/24/25 09:47 Dose: 200 mls/hr Levetiracetam (Levetiracetam Inj 100 Mg/Ml Vial 5ml) 1,500 mg IVP Q12HR JERRY Stop: 06/23/25 20:59 Levothyroxine Sodium (Levothyroxine Sodium 25 Mcg Tablet) 75 mcg PO ACBR JERRY Stop: 06/23/25 10:04 Last Admin: 05/24/25 10:21 Dose: Not Given Non-Formulary Medication (Xcorpi) 100 mg PO QDAY JERRY Stop: 06/24/25 08:59 Nystatin (Nystatin Pwd 15 Gm Btl) 0 gm TOP TID JERRY Stop: 06/23/25 13:59 Ondansetron HCl (Ondansetron Inj 2 Mg/Ml Inj 2 Ml) 4 mg IVP Q6H PRN; Protocol PRN Reason: NAUSEA OR VOMITING Stop: 06/22/25 20:43 Pharmacy Consult (Vancomycin Pharmacy To Dose 1 Each Each) 1 each IV QDAY PRN PRN Reason: PROTOCOL Stop: 06/23/25 08:59 Discontinued Medications Furosemide (Furosemide Inj 10 Mg/Ml 4ml Vial) 40 mg IVP X1 ONE Stop: 05/24/25 10:01 Last Admin: 05/24/25 10:18 Dose: 40 mg Piperacillin Sod/Tazobactam (Sod 4.5 gm/ Sodium Chloride) 100 mls @ 200 mls/hr IV X1 ONE Stop: 05/23/25 11:55 Last Infusion: 05/23/25 13:10 Dose: Infused Vancomycin HCl (Vancomycin/Water 1gm Ivpb) 200 mls @ 120 mls/hr IV X1 ONE Stop: 05/23/25 13:24 Last Infusion: 05/23/25 14:55 Dose: Infused Lactated Ringer's (Lactated Ringers) 1,000 mls @ 999 mls/hr IV .Q1H1M ONE Stop: 05/23/25 13:39 Last Infusion: 05/23/25 12:46 Dose: Infused Sodium Chloride (Ns) 1,000 mls @ 50 mls/hr IV .Q20H JERRY Stop: 05/25/25 12:44 Last Admin: 05/23/25 21:01 Dose: 50 mls/hr Piperacillin/Tazobactam/Dextrose (Zosyn) 3.375 gm in 50 mls @ 12.5 mls/hr IV Q8HR JERRY; Protocol Stop: 05/31/25 05:59 Last Admin: 05/24/25 05:07 Dose: 12.5 mls/hr Piperacillin/Tazobactam/Dextrose (Zosyn) 3.375 gm in 50 mls @ 100 mls/hr IV X1 ONE Stop: 05/23/25 21:29 Last Infusion: 05/23/25 22:06 Dose: Infused Vancomycin HCl 1,000 mg/ (Sodium Chloride) 250 mls @ 120 mls/hr IV X1 ONE Stop: 05/24/25 03:04 Last Admin: 05/24/25 00:45 Dose: 120 mls/hr Magnesium Sulfate/Dextrose (Magnesium Sulfate Ivpb) 1 gm in 100 mls @ 100 mls/hr IV X1 ONE Stop: 05/24/25 08:58 Last Admin: 05/24/25 09:47 Dose: 100 mls/hr Levetiracetam (Levetiracetam Inj 100 Mg/Ml Vial 5ml) 1,000 mg IVP X1 ONE Stop: 05/23/25 11:15 Last Admin: 05/23/25 11:23 Dose: 1,000 mg Levetiracetam (Levetiracetam Inj 100 Mg/Ml Vial 5ml) 1,000 mg IVP Q12HR JERRY Stop: 06/23/25 08:59 Last Admin: 05/24/25 09:48 Dose: 1,000 mg Levothyroxine Sodium (Levothyroxine Inj 100 Mcg Vial) 50 mcg IV X1 ONE Stop: 05/24/25 12:00 Last Admin: 05/24/25 12:56 Dose: 50 mcg Midazolam HCl (Midazolam Inj 1 Mg/Ml Vial 2 Ml) 4 mg IVP X1 PRN PRN Reason: Seizure Activity Stop: 05/24/25 11:22 Last Admin: 05/23/25 11:55 Dose: 4 mg Nystatin (Nystatin Pwd 15 Gm Btl) 0 gm TOP X1 ONE Stop: 05/23/25 17:42 Last Admin: 05/23/25 21:01 Dose: 1 tube Nystatin (Nystatin Pwd 15 Gm Btl) 0 gm TOP BID JERRY Stop: 06/23/25 08:59 Last Admin: 05/24/25 11:17 Dose: 15 gm Pharmacy Consult (Vancomycin Pharmacy To Dose 1 Each Each) 1 each IV NOW ONE Stop: 05/23/25 11:27 Last Admin: 05/23/25 13:17 Dose: 1 each Sodium Chloride (Sodium Chloride Rt 10% 15 Ml Nebu) 5 ml INH X1 ONE Stop: 05/24/25 08:06 Last Admin: 05/24/25 08:33 Dose: 5 ml Assessment & Plan Plan Patient is a 70 year old female with a past medical history of Down's Syndrome, hx of Seizures on Keppra and Xcopri, and history of hypothyroidism who was admitted for breakthrough seizure. #Breakthrough seizures #Seizure disorder #Lactic Acidosis Patient developed breakthrough seizure despite current medication likely triggered by pleural effusion noted on CTA chest. Per caregiver noted to have typical signs of seizure, including tonic-clonic movement, post-ictal state, and worsening SOB during seziure. EEG ordered. Diagnositc: CT head: negative Plan: -EEG pending -Keppra 1500 mg BID -Resume hoem Xcopri 100 mg once daily (home medication) -seizure precautions -head of the bed at 30% -continue to montiro electrolytes. -consider Ativan or Midazolam based on available medication PRN #Acute hypoxic respiratory failure secondary to CAP/Pleural Effusion #CAP, left base pneumonia #Large left pleural effusion & Moderate right pleural effusion. #Mild to Moderate Cardiac Contour Enlargement #Hypomagnesium #Asthma #Hypothyroidism #Cutaneous Candidiasis - The patient's plan was discussed with attending Dr. Kelly Thomas MD PGY2 Internal Medicine Attending Provider Attestation/Addendum I personally have seen and examined the patient at the bedside and agree with resident's findings, assessment and plan of care. Impression: Seizure disorder with increased frequency of breakthrough seizures Pleural effusion Acute respiratory failure, with BiPAP/facemask oxygen as tolerated Hypothyroidism Down syndrome Plan/recommendations will consider increasing the dose of Keppra to 1500 mg twice a day and add Xcopri 100 mg a day Close monitoring for any seizures.
--- NOTE | 2025-05-24 14:19 | PC.NURSE ---
Called skilled nursing, spoke with Lisa, rn homecare, to bring to the hospital Xcorpi. Med not available at the hospital. Caregiver to bring this afternoon.
--- NOTE | 2025-05-24 15:51 | EVENTNT_ITS ---
<Statement entered by Catina Schwartz MD - 05/24/25 16:05> I have reviewed the note and agree with the resident's assessment & plan with exceptions as below. I have personally reviewed labs, imaging, home meds/prior records, examined the patient, formulated and discussed management plan with the IM team. Response called for patient due to hypoxia, going low as 80% oxygen saturation. Increased patient's oxygenation and patient's oxygen had increased back to 100. Patient could have had a slight mucous plug that had improved while being examined. Due to concern for worsening, we will put patient on BiPAP at this time. Still pending thoracentesis at this time. Will order chest x-ray and will follow-up with those results as well. Catina Schwartz, PGY-2 Internal Medicine Documentation for date of: 05/24/25 Event Note Event Note: Time of notification: ~3:40 pm Reason for physician notification: Oxygen Desaturation Clinical Assessment Team arrived shortly after Rapid was called, was notified that patient desaturated to the 70s and she was immediately given supplemental oxygen via oxymask. Other vitals and glucose were normal. Patient was clearing her lungs with some coughs, sounded as if mucous was being dislodged, possible mucous plug. Patient's oxygen saturation after oxygen administration improved to upper 90s and remained stable with oxy mask. Patient was noted to be using accessory muscles. Chest X-ray was ordered, will follow up. Patient seen and evaluated with attending Dr. Tao and supervising resident Dr. Lana Coleman MD PGY-1
--- NOTE | 2025-05-24 16:14 | XR_ITS ---
Examination: AP chest single view. Technique AP portable semiupright chest single view.: Date and time: May 24, 2025, 1628 hours., Comparison May 23, 2025 indications: Shortness of breath this week, history severe diffuse left lung pneumonia on chest film yesterday FINDINGS: Improvement in left lung pneumonia Minimal prominence cardiac contour. There remains perihilar edema and/or pneumonia Moderate left pleural effusion IMPRESSION: Improvement in left lung pneumonia. There remains significant perihilar edema and/or pneumonia, clinical correlation is advised.
[2025-05-24] MEDS: levETIRAcetam INJ 100 MG/ML VIAL 5ML 1500 MG IVP (22:03)
[2025-05-25] VITALS (8 sets, daily range): BP systolic 115–131; BP diastolic 68–85; PULSE 60–85; RESP 12–28; TEMP 36.1–36.7; O2SAT 93–100; BMI 23.3
[2025-05-25] MEDS: CEFEPIME INJ 2 GM in SODIUM CHLORIDE 0.9% (Popper) 50 ML IV (05:18)
[2025-05-25] MEDS: metroNIDAZOLE/NS 500 MG IVPB 500 MG/100 ML BAG 200 MG IV (05:19)
[2025-05-25] MEDS: NYSTATIN PWD 15 GM BTL TOP ×3 (06:00→21:07)
[2025-05-25 06:17] LABS: Basophils # (Auto) 0.1 Thou/mm3 (0.0-0.2); Basophils % (Auto) 2 % (0-2.5); Eosinophils # (Auto) 0.2 Thou/mm3 (0.0-0.5); Eosinophils % (Auto) 3 % (0-10); Hematocrit 35.9 % (36.0-46.0); Hemoglobin 12.3 g/dL (12.0-16.0); Immature Granulocytes Auto 0.04 Thou/mm3 (0.00-0.00); Lymphocytes # (Auto) 1.3 Thou/mm3 (1.0-4.8); Lymphocytes % (Auto) 19 % (10-50); Mean Corpuscular HGB Conc 34.3 g/dl (31.0-37.0); Mean Corpuscular Hemoglobin 32.7 pg (25.0-35.0); Mean Corpuscular Volume 96 fL (80-100); Monocytes # (Auto) 0.9 Thou/mm3 (0.0-0.8); Monocytes % (Auto) 13 % (0-12); Neutrophils # (Auto) 4.4 Thou/mm3 (1.8-7.7); Neutrophils % (Auto) 63 % (37-80); Nucleated Red Blood Cell # 0.00 Thou/mm3 (0.00-0.00); Nucleated Red Blood Cell % 0 /100 WBC (0); Platelet Count 309 Thou/mm3 (140-440); RDW Standard Deviation 44.8 fL (36.4-46.3); Red Blood Count 3.76 Miln/mm3 (4.00-5.20); White Blood Count 6.9 Thou/mm3 (3.6-11.0)
[2025-05-25 07:00] LABS: Alanine Aminotransferase 18 U/L (10-49); Albumin, Serum 3.1 gm/dL (3.4-4.8); Albumin/Globulin Ratio 1.1 (1.2-2.2); Alkaline Phosphatase 122 U/L (46-116); Anion Gap 14 (7-16); Aspartate Amino Transferase 15 U/L (0-34); BUN/Creatinine Ratio 10 Ratio (12-20); Bilirubin,Total 0.2 mg/dL (0.3-1.2); Blood Urea Nitrogen 7 mg/dL (9-23); Calcium 8.1 mg/dL (8.3-10.6); Calcium (Corrected) 8.8 mg/dL (8.5-10.1); Carbon Dioxide 31.5 mMol/L (20.0-31.0); Chloride 96 mMol/L (98-107); Creatinine (Component) 0.7 mg/dL (0.6-1.3); Estimated Creatinine Clearance 51.6 mL/min (>60); Globulin 2.7 gm/dL (2.3-3.5); Glucose 68 mg/dL (74-106); Magnesium 2.0 mg/dL (1.6-2.6); Osmolality,Calculated 277 (275-295); Phosphorous 2.4 mg/dL (2.4-5.1); Potassium 3.2 mMol/L (3.4-5.1); Sodium 141 mMol/L (136-145); Total Protein 5.8 gm/dL (5.7-8.2); eGFR > 60 See Note
[2025-05-25 07:16] LABS: Vancomycin,Random 8.7 mcg/mL
[2025-05-25] MEDS: DEXTROSE 50%-WATER INJ 50 ML SYRINGE IVP (08:36)
[2025-05-25] MEDS: levETIRAcetam INJ 100 MG/ML VIAL 5ML 1500 MG IVP ×2 (08:41→20:37)
[2025-05-25] MEDS: ENOXAPARIN SOD INJ 40 MG/0.4 ML SYRINGE SC (08:41)
[2025-05-25] MEDS: POTASSIUM CHL 10 mEq IVPB 10 MEQ/100 ML BAG 100 MEQ IV ×2 (08:42→09:50)
--- NOTE | 2025-05-25 09:14 | ESPR_ITS ---
Subjective Subjective Interval history: asked to see. had staph aureus in s;putum in march but current bc neg so far and pt afebrile. here for sz and hypoxia that is new. hx of cardiac concerns as a youth, none for yrs. f/u limited. wbc normal throughout course dose not get our sine mcuch, so chances of cocci low but sill check. wh is 70 with down's so may be at or near end of lifce for that disease. is a gull code. she has an annual ppd that has been neg. cv is her decison maker. dr snider. Exam Vital Signs Temp Pulse Resp BP Pulse Ox O2 Del Method O2 Flow Rate 98.0 F 65 28 H 122/69 95 Oxy Mask 4 05/25/25 08:00 05/25/25 08:00 05/25/25 08:00 05/25/25 08:00 05/25/25 08:00 05/25/25 08:00 05/25/25 08:00 FiO2 30 05/24/25 16:09 Narrative Exam on O2. mouth breather. dry membranes noted. mild tachypnea Objective - Internal Medicine Labs 05/25/25 05:39 05/25/25 05:39 Labs: Laboratory Results - last 24 hr 05/23/25 05/24/25 05/25/25 12:06 04:49 05:39 WBC 6.9 RBC 3.76 L Hgb 12.3 Hct 35.9 L MCV 96 MCH 32.7 MCHC 34.3 RDW Std Deviation 44.8 Plt Count 309 D Neut % (Auto) 63 Lymph % (Auto) 19 [place] % (Auto) 13 H Eos % (Auto) 3 Baso % (Auto) 2 Neut # (Auto) 4.4 Lymph # (Auto) 1.3 [place] # (Auto) 0.9 H Eos # (Auto) 0.2 Baso # (Auto) 0.1 Immature Gran # (Auto) 0.04 H Absolute Nucleated RBC 0.00 Immature Gran % 1 H Nucleated RBC % 0 Sodium 141 Potassium 3.2 L D Chloride 96 L Carbon Dioxide 31.5 H Anion Gap 14 BUN 7 L Creatinine 0.7 Estim Creat Clear Calc 51.6 L eGFR > 60 BUN/Creatinine Ratio 10 L Glucose 68 L Calculated Osmolality 277 Calcium 8.1 L Corrected Calcium 8.8 Phosphorus 2.4 Magnesium 2.0 Total Bilirubin 0.2 L AST 15 ALT 18 Alkaline Phosphatase 122 H Lactate Dehydrogenase 268 H Total Protein 5.8 Albumin 3.1 L Globulin 2.7 Albumin/Globulin Ratio 1.1 L Random Vancomycin 8.7 Heparin-Ind Plt Ab Scrn NEGATIVE Heparin Dep Plt Ab OD 0.154 ABG Interpretation ABG results: 05/23/25 19:00 ABG pH 7.38 ABG pCO2 55 H ABG pO2 99 ABG HCO3 33 H ABG O2 Saturation 98 ABG Base Excess 6 H Assessment & Plan A&P Narrative sz. on empiric abx prior staph bacteremis in march no formal S not ed down syndrome hypothyroid hypoxia and pneumonia by imaging changed to rocephin and flucon and added cocci screen. willl. check in Wednesday am Time Spent With Patient Time: Total time spent is greater than 50% in coordination of care (as documented) at patient's floor/unit and/or counseling patient:
[2025-05-25] MEDS: FUROSEMIDE INJ 10 MG/ML VIAL 2 ML 20 MG IVP (09:50)
--- NOTE | 2025-05-25 11:00 | XR_ITS ---
Examination: Ultrasound-guided right hemithorax Ultrasound guided left hemithorax Date and time: May 25, 2025 1121 hours INDICATIONS: Shortness of breath this week with pneumonia left lung and left pleural fluid on chest x-ray May 24, 2025 TECHNIQUE AND FINDINGS: Sonographic images right and left hemithoraces demonstrate minimal bilateral pleural fluid IMPRESSION: Minimal bilateral pleural fluid
--- NOTE | 2025-05-25 11:16 | ESPR_ITS ---
<Statement entered by Catina Schwartz MD - 05/25/25 17:07> I have reviewed the note and agree with the resident's assessment & plan with exceptions as below. I have personally reviewed labs, imaging, home meds/prior records, examined the patient, formulated and discussed management plan with the IM team. Patient examined bedside today. No acute overnight events. Patient is currently on 4 L OxiMax at this time saturating well. Patient to get ultrasound guided thoracentesis today by interventional radiology. Neurology on consult, appreciate recs, on Keppra and home seizure medicine. Patient is currently 5 L negative, will only give patient 20 mg of IV Lasix as she was given 40 yesterday and put out 5 L. Repeat hematology and chemistry in AM. Catina Schwartz, PGY-2 Internal Medicine Documentation for date of: 05/25/25 Subjective Subjective Interval history: No acute events overnight. Patient seen and examined at bedside. Vitals and labs reviewed. Patient this morning was resting in bed, saturating well on 4 L oxy mask, telemetry unremarkable overnight. Patient was arousable to pain, but was fairly sleepy. Exam Vital Signs Temp Pulse Resp BP Pulse Ox O2 Del Method O2 Flow Rate 98.0 F 70 28 H 122/80 95 Oxy Mask 4 05/25/25 08:00 05/25/25 09:50 05/25/25 08:00 05/25/25 09:50 05/25/25 08:00 05/25/25 08:00 05/25/25 08:00 FiO2 30 05/24/25 16:09 Narrative Exam Gen: Down syndrome. Does not verbally respond, eyes open spontaneously and track. HEENT: NCAT, PERRLA, EOMI, MMM, anicteric conjunctivae. Appears to have fungal infection along neck/back. CVS: normal S1 and S2. RRR. No M/R/G. Resp: Coarse rhonchi throughout all lung hodges. Abd: soft, non-tender, non-distended. BS+ in all 4 quadrants. MSK: Neck/inner thigh erythematous rash. Right shoulder bruise, potentially caused by seizure. Neuro: Does withdraw from pain. Does not follow commands. Objective Labs 05/25/25 05:39 05/25/25 05:39 Labs: Laboratory Results - last 24 hr 05/23/25 05/25/25 12:06 05:39 WBC 6.9 RBC 3.76 L Hgb 12.3 Hct 35.9 L MCV 96 MCH 32.7 MCHC 34.3 RDW Std Deviation 44.8 Plt Count 309 D Neut % (Auto) 63 Lymph % (Auto) 19 [place] % (Auto) 13 H Eos % (Auto) 3 Baso % (Auto) 2 Neut # (Auto) 4.4 Lymph # (Auto) 1.3 [place] # (Auto) 0.9 H Eos # (Auto) 0.2 Baso # (Auto) 0.1 Immature Gran # (Auto) 0.04 H Absolute Nucleated RBC 0.00 Immature Gran % 1 H Nucleated RBC % 0 Sodium 141 Potassium 3.2 L D Chloride 96 L Carbon Dioxide 31.5 H Anion Gap 14 BUN 7 L Creatinine 0.7 Estim Creat Clear Calc 51.6 L eGFR > 60 BUN/Creatinine Ratio 10 L Glucose 68 L Calculated Osmolality 277 Calcium 8.1 L Corrected Calcium 8.8 Phosphorus 2.4 Magnesium 2.0 Total Bilirubin 0.2 L AST 15 ALT 18 Alkaline Phosphatase 122 H Total Protein 5.8 Albumin 3.1 L Globulin 2.7 Albumin/Globulin Ratio 1.1 L Random Vancomycin 8.7 Heparin-Ind Plt Ab Scrn NEGATIVE Heparin Dep Plt Ab OD 0.154 ABG Interpretation ABG results: 05/23/25 19:00 ABG pH 7.38 ABG pCO2 55 H ABG pO2 99 ABG HCO3 33 H ABG O2 Saturation 98 ABG Base Excess 6 H Quality Measures Quality Measures VTE prophylaxis Advance care planning discussed with:: patient and other Assessment & Plan Assessment Current Active Medications: Generic Name Dose Route Start Last Admin Trade Name Francisco PRN Reason Stop Dose Admin Acetaminophen 650 mg 05/23/25 20:44 Acetaminophen Supp 650 Mg Supp OK 06/22/25 20:43 Q6HR PRN Fever > 100.4 or pain Xcopri 100 Mg Tablet 0 ea 05/24/25 21:00 05/24/25 21:55 PO 06/23/25 20:59 Not Given HS JERRY Enoxaparin Sodium 40 mg 05/24/25 09:00 05/25/25 08:41 Enoxaparin Sod Inj 40 Mg/0.4 Ml Syringe SC 06/07/25 08:59 40 mg QDAY JRERY Administration Fluconazole 400 mg 05/25/25 11:15 Fluconazole 100 Mg Tablet PO 06/01/25 11:14 QDAY JERRY Ceftriaxone Sodium/Dextrose 1 gm in 50 mls @ 100 mls/hr 05/25/25 10:58 Rocephin/D5w 1gm Iv Premix IV 06/01/25 10:57 QDAY JERRY Levetiracetam 1,500 mg 05/24/25 21:00 05/25/25 08:41 Levetiracetam Inj 100 Mg/Ml Vial 5ml IVP 06/23/25 20:59 1,500 mg Q12HR JERRY Administration Levothyroxine Sodium 75 mcg 05/24/25 10:05 05/25/25 05:34 Levothyroxine Sodium 25 Mcg Tablet PO 06/23/25 10:04 Not Given ACBR JERRY Nystatin 0 gm 05/24/25 14:00 05/25/25 06:00 Nystatin Pwd 15 Gm Btl TOP 06/23/25 13:59 1 applicatio TID JERRY Administration Ondansetron HCl 4 mg 05/23/25 20:44 Ondansetron Inj 2 Mg/Ml Inj 2 Ml IVP 06/22/25 20:43 Q6H PRN NAUSEA OR VOMITING Protocol Plan 70 F with PMHx significant for Down syndrome, seizures, asthma, hypothyroidism presenting with chief complaint of breakthrough seizures, admitted for breakthrough seizures and significant pleural effusion. #Breakthrough seizures #Seizure disorder Patient has known history of seizure disorder. Per caregiver, patient 2 witnessed tonic-clonic seizures in 24 hours prior to admission. Patient does not appear to have fully recovered back to baseline, per chart review patient at baseline is able to answer simple yes/no questions. Currently patient eyes open spontaneously, tracks, but does not verbally respond, does not follow commands. Patient follows with Dr. Mendoza outpatient. Patient received 1 g Keppra and 4 mg Versed in ED. - Dr. Mendoza consulted, appreciate recommendations - Keppra 1500 mg IV q12hr - Xcorpi 100 mg po qd will be delivered and given from client care coordinator (non- formulary). - EEG taken, follow-up - Seizure precautions - Telemonitoring #PNA with significant pleural effusion #Asthma Patient was discharged from [facility] 05/20 after being treated for pneumonia. Caregiver reports patient is continue to have difficulty breathing. Chest CTA showed large left pleural effusion and moderate right pleural effusion. Patient saturating well on 2 L via nasal cannula. Significant rhonchi on exam. Unclear if pneumonia with failure of treatment or new HAP. 05/25: MRSA nares negative -> discontinued Vancomycin - ID consulted, recommended changing to rocephin 1 g IV qd and fluconazole 400 mg po qd; added cocci screen - Discontinued: Flagyll 500 mg IV q8hr, Cefepime 2 gm IV q8hr - O2 as needed maintain sats 92% - Gave Lasix 20 mg IV x1 - Sputum induction prn ordered, culture and gram stain ordered for it - Thoracentesis today with pleural amylase, glucose, LDH, protein, cell count diff, culture w/ MADELAINE & gram stain, fluid cytology. - Will report Light's Criteria results regarding exud. vs trans. pleural fluid once results are in. - Suctioning as needed - Chest PT as needed - DuoNebs as needed #HFpEF Echo done 05/16/2025 showing grade I diastolic dysfunction. Estimated EF at 55- 60%, estimated RVSP, 42 mmHg. Patient has some signs of fluid overload. - Strict I/O's - Weights qd - Fluid Restriction 1500 ml #Fungal infection Patient has large erythematous rash with small whitish plaques along base of neck and inner thighs, appears to be fungal rash. - Topical nystatin - Wound care #Hypothyroidism Patient history as stated. Patient currently n.p.o. with aspiration precautions. - Restarted home Levothyroxine 75 mcg PO ACBR DVT prophylaxis: Lovenox GI prophylaxis: None Diet: N.p.o. with aspiration precautions Lines: Peripheral IV Code status: Full code Patient plan of care was discussed with the attending physician, Dr. Tao & senior resident Dr. Lana Coleman MD PGY-1 Attending Provider Attestation/Addendum I have discussed and was present for the essential components of the history, physical examination, diagnosis, and treatment plan with the resident. I agree with the patient's care as documented by the resident and amended herein by me. Maged Tao DO. Although this document has been carefully reviewed, there may still be some phonetic and other typographical errors. These errors are purely grammatical due to imperfections in the software program and should not be construed in any way to compromise the substance of the patient's medical care during this visit.
--- NOTE | 2025-05-25 11:39 | PC.SS ---
Follow up note: Patient pending a thoracentesis today. D/c plan: return to [facility].
[2025-05-25] MEDS: cefTRIAXone/D5w 1gm IV premix 1 GM/50 ML BAG IV (11:55)
--- NOTE | 2025-05-25 13:15 | ESCONSULT_ITS ---
RE: DYLAN PRICE : 1955 DATE OF CONSULTATION: 05/25/2025 REFERRING PHYSICIAN: Dr. Kruger. REASON FOR CONSULTATION: Hypoxic respiratory failure with pneumonia on chest imaging in a 70-year-old with Down syndrome. HISTORY OF PRESENT ILLNESS: The patient is unfortunately an older woman with Down syndrome, so she may have limited life expectancy with her dx and age. She is 70 years old and may be near end of life. Her last echocardiogram done recently was negative for heart disease, but we will get a BNP tomorrow anyway as a precaution. She used to see a cardiac doctor probably at [facility] because of her history, but she stopped doing that many years ago (hx from [facility]). She is chronically hypoxic and came in more for seizures and hypoxia. She appears to be on some oxygen and has interval chest imaging. Her medication list is reviewed. She has thyroid disease and her Down syndrome. She has no other health problems. She does take some allergy medicines, montelukast, and daily PEG treatment for constipation. She is also on some quetiapine presumably for sleep assistance. Her Bactrim semi-empiric, so I am going to go ahead and change them to Rocephin and oral fluconazole. I know that she has been MRSA positive in the past. She is now obviously negative, so vancomycin was initially administered and stopped. I am going to check on her again Wednesday, but in the meantime, I will check a BMP, cocci test and give her Rocephin and fluconazole. I will check her on Wednesday. cc: Dr. Kruger DT: 11:08:59 TT: 12:20:00 Ref: [id number] - TID: [id number] MTD
--- NOTE | 2025-05-25 23:11 | ESPR_ITS ---
Documentation for date of: 05/25/25 Subjective Subjective Interval history: Patient was seen in telemetry today. No seizures/new symptoms reported overnight Exam - Neurology Vital Signs Temp Pulse Resp BP Pulse Ox O2 Del Method O2 Flow Rate 97.7 F 71 18 131/68 H 97 Oxy Mask 4 05/25/25 20:00 05/25/25 22:57 05/25/25 22:57 05/25/25 20:00 05/25/25 22:57 05/25/25 20:00 05/25/25 22:57 FiO2 30 05/25/25 12:00 Narrative Exam General Appearance: Alert & Oriented X0, well-nourished who is lying in bed in no acute distress, saturating on 2 liters at 96%, no increased work of breathing noted HEENT: Skull symmetrical and atraumatic. Conjunctivae pin and moist. Pupils equal, round, reactive to light and accommodation (PERRL). External ear without lesion or discharge. Straight, nares patient, mucosa pink, no discharge. No thyroid nodule appreciated. No cervical lymphadenopathy. Cardio: Normal Rate and Rhythm with S1 and S2 heart sounds. No murmurs or extra heart sounds auscultated. No bruits on carotid auscultation. No peripheral edema or cyanosis. Lungs: Symmetric with good expansion. Chest and back non-tender. Decreased breath sounds noted wtih rhonchi. Abdomen: Non-tender, Non-distended, Normal Reactive Bowel Sounds Neuro: Alert, noncooperative, not oriented to person place or time, non-verbal as at baseline, withdrawals to painful stimuli, contracted in all 4 extremities Limited exam Objective Labs 05/28/25 05:54 05/28/25 05:54 Labs: Laboratory Results - last 24 hr 05/23/25 05/25/25 12:06 05:39 WBC 6.9 RBC 3.76 L Hgb 12.3 Hct 35.9 L MCV 96 MCH 32.7 MCHC 34.3 RDW Std Deviation 44.8 Plt Count 309 D Neut % (Auto) 63 Lymph % (Auto) 19 [place] % (Auto) 13 H Eos % (Auto) 3 Baso % (Auto) 2 Neut # (Auto) 4.4 Lymph # (Auto) 1.3 [place] # (Auto) 0.9 H Eos # (Auto) 0.2 Baso # (Auto) 0.1 Immature Gran # (Auto) 0.04 H Absolute Nucleated RBC 0.00 Immature Gran % 1 H Nucleated RBC % 0 Sodium 141 Potassium 3.2 L D Chloride 96 L Carbon Dioxide 31.5 H Anion Gap 14 BUN 7 L Creatinine 0.7 Estim Creat Clear Calc 51.6 L eGFR > 60 BUN/Creatinine Ratio 10 L Glucose 68 L Calculated Osmolality 277 Calcium 8.1 L Corrected Calcium 8.8 Phosphorus 2.4 Magnesium 2.0 Total Bilirubin 0.2 L AST 15 ALT 18 Alkaline Phosphatase 122 H Total Protein 5.8 Albumin 3.1 L Globulin 2.7 Albumin/Globulin Ratio 1.1 L Random Vancomycin 8.7 Heparin-Ind Plt Ab Scrn NEGATIVE Heparin Dep Plt Ab OD 0.154 ABG Interpretation ABG results: 05/23/25 19:00 ABG pH 7.38 ABG pCO2 55 H ABG pO2 99 ABG HCO3 33 H ABG O2 Saturation 98 ABG Base Excess 6 H Assessment & Plan Additional Assessment & Plan Additional Plan: (1) Seizure: Status: Acute Assessment and plan: Continue with Keppra and Xcopri Follow seizure precautions and continue to monitor for any breakthrough seizures (2) Pneumonia: Status: Acute Assessment and plan: Continue with the current IV antibiotics Continue to monitor for respiratory distress from hypoxia
[2025-05-26] VITALS (17 sets, daily range): BP systolic 61–144; BP diastolic 33–95; PULSE 41–101; RESP 13–32; TEMP 36.2–37.2; O2SAT 93–100; BMI 23.3
--- NOTE | 2025-05-26 01:30 | XR_ITS ---
Examination: AP chest single view Technique one AP portable semiupright chest single view Date and time: May 26, 2025, 0651 hours, comparison May 24, 2025 INDICATIONS: Hypotension and recent thoracentesis. FINDINGS: Total opacification left hemithorax Prominent vascular congestion in the right lung Prominent osteopenia IMPRESSION: Total opacification left hemithorax Recommend ultrasound left hemithorax follow-up to assess extent of left pleural fluid versus atelectasis pneumonia left lung
[2025-05-26] MEDS: RINGERS LACTATED 500 ML 500 ML 999 ML IV ×2 (01:35→02:10)
--- NOTE | 2025-05-26 01:35 | EKG_ITS ---
[facility] Test Date: 2025-05-26 Pat Name: DYLAN PRICE [facility] Compressor Operator: DODIE : 1955 Requested By: Hollis Norwood Order Number: [id number] Reading MD: Hollis Norwood Measurements Intervals [place] Rate: 62 P: 53 SC: 132 QRS: 56 QRSD: 97 T: 41 QT: 426 QTc: 434 Interpretive Statements SINUS RHYTHM POSSIBLE RIGHT VENTRICULAR CONDUCTION DELAY MODERATE T-WAVE ABNORMALITY, CONSIDER ANTERIOR ISCHEMIA Compared to ECG 05/23/2025 11:18:07 T-wave abnormality now present Possible ischemia now present /store/S0/[id number]/ecg/[id number].pdf
[2025-05-26 01:58] LABS: Lactate (Lactic Acid) 6.2 mMol/L (0.4-2.0)
--- NOTE | 2025-05-26 02:03 | PC.NURSE ---
patients hr went loly to 35 and sustained in the 40's. rapid response was called and patient's bp was 61/33. A 500 bolus was given and bp increased and heart rate. same level of care
[2025-05-26] MEDS: ALBUMIN HUMAN 25% IVPB 12.5 GM/50 ML BTL IV (02:12)
--- NOTE | 2025-05-26 02:13 | EVENTNT_ITS ---
Documentation for date of: 05/26/25 Event Note Event Note: Event note: Rapid response Called at approximately 1:27 AM Rapid response called secondary to bradycardia, heart rate 33 and hypotensive MAP 47. Patient responds to painful stimuli, nonverbal at baseline. Pulses +2. No new medication given, last medication Keppra given at 20: 37. No seizure- like activity noted and aperture placed back, confirmed no seizure-like activity. No rhonchi or crackles appreciated. Intervention: Atropine as needed and lactated ringer 500 bolus given with albumin x 1 Orders: EKG, BMP, CBC, chest x-ray, ABG, lactic acid Telemetry EKG strip during rapid showed sinus bradycardia and repeat EKG sinus
[2025-05-26 02:22] LABS: Albumin, Serum 2.1 gm/dL (3.4-4.8); Anion Gap 14 (7-16); BUN/Creatinine Ratio 15 Ratio (12-20); Blood Urea Nitrogen 6 mg/dL (9-23); Calcium 7.4 mg/dL (8.3-10.6); Calcium (Corrected) 8.9 mg/dL (8.5-10.1); Carbon Dioxide 27.3 mMol/L (20.0-31.0); Chloride 100 mMol/L (98-107); Creatinine (Component) 0.4 mg/dL (0.6-1.3); Estimated Creatinine Clearance 89.3 mL/min (>60); Glucose 72 mg/dL (74-106); Osmolality,Calculated 277 (275-295); Phosphorous 1.6 mg/dL (2.4-5.1); Potassium 3.6 mMol/L (3.4-5.1); Sodium 141 mMol/L (136-145); eGFR > 60 See Note
[2025-05-26 02:40] LABS: Allen Test Performed/OK; Base Excess 6 (-3-3); HCO3 32 mEq/L (20-26); Inspired Oxygen, FIO2 21 %; O2 Saturation 98 % (91-98); PCO2 48 mmHg (32.0-48.0); PO2 87 mmHg (83-108); Puncture Site Right Radial; pH, Arterial 7.43 (7.35-7.45)
[2025-05-26] MEDS: RINGERS LACTATED 1000 ML 1,000 ML 60 ML IV (02:53)
[2025-05-26 03:50] LABS: Basophils # (Auto) 0.1 Thou/mm3 (0.0-0.2); Basophils % (Auto) 2 % (0-2.5); Eosinophils # (Auto) 0.2 Thou/mm3 (0.0-0.5); Eosinophils % (Auto) 2 % (0-10); Hematocrit 37.6 % (36.0-46.0); Hemoglobin 12.6 g/dL (12.0-16.0); Immature Granulocytes Auto 0.04 Thou/mm3 (0.00-0.00); Lymphocytes # (Auto) 1.5 Thou/mm3 (1.0-4.8); Lymphocytes % (Auto) 18 % (10-50); Mean Corpuscular HGB Conc 33.5 g/dl (31.0-37.0); Mean Corpuscular Hemoglobin 32.2 pg (25.0-35.0); Mean Corpuscular Volume 96 fL (80-100); Monocytes # (Auto) 1.0 Thou/mm3 (0.0-0.8); Monocytes % (Auto) 12 % (0-12); Neutrophils # (Auto) 5.7 Thou/mm3 (1.8-7.7); Neutrophils % (Auto) 67 % (37-80); Nucleated Red Blood Cell # 0.00 Thou/mm3 (0.00-0.00); Nucleated Red Blood Cell % 0 /100 WBC (0); Platelet Count 301 Thou/mm3 (140-440); RDW Standard Deviation 45.5 fL (36.4-46.3); Red Blood Count 3.91 Miln/mm3 (4.00-5.20); White Blood Count 8.4 Thou/mm3 (3.6-11.0)
[2025-05-26 04:54] LABS: Reflex Lactate? Y
[2025-05-26 05:05] LABS: Collection Type, Urine Catheter
[2025-05-26 05:10] LABS: Bilirubin,Urine Negative (Negative); Blood,Urine 1+ (Negative); Clarity,Urine Clear (Clear/Hazy); Color,Urine Colorless (Lt Yel-Yel); Glucose, Urine Negative (Negative); Ketones,Urine 4+ (Negative); Leukocyte Esterase,Urine Negative (Negative); Nitrite,Urine Negative (Negative); PH,Urine 7.5 (5.0-7.0); Protein,Urine Negative (Neg - Trace); RBC,Urine 39 /hpf (0-3); Specific Gravity,Urine 1.012 (1.001-1.035); Squamous Epithelial Cell,Urine < 1 /hpf (0-5); Urobilinogen,Urine Negative mg/dL (0.0-1.0); WBC,Urine 3 /hpf (0-5)
[2025-05-26] MEDS: NYSTATIN PWD 15 GM BTL TOP ×3 (05:26→21:40)
[2025-05-26 08:19] LABS: Lactate (Lactic Acid) 1.2 mMol/L (0.4-2.0)
[2025-05-26 08:25] LABS: Misc Send Out* See Sep Rpt
[2025-05-26 08:34] LABS: Basophils # (Auto) 0.1 Thou/mm3 (0.0-0.2); Basophils % (Auto) 1 % (0-2.5); Eosinophils # (Auto) 0.1 Thou/mm3 (0.0-0.5); Eosinophils % (Auto) 1 % (0-10); Hematocrit 37.1 % (36.0-46.0); Hemoglobin 12.8 g/dL (12.0-16.0); Immature Granulocytes Auto 0.05 Thou/mm3 (0.00-0.00); Lymphocytes # (Auto) 1.2 Thou/mm3 (1.0-4.8); Lymphocytes % (Auto) 18 % (10-50); Mean Corpuscular HGB Conc 34.5 g/dl (31.0-37.0); Mean Corpuscular Hemoglobin 32.9 pg (25.0-35.0); Mean Corpuscular Volume 95 fL (80-100); Monocytes # (Auto) 0.5 Thou/mm3 (0.0-0.8); Monocytes % (Auto) 7 % (0-12); Neutrophils # (Auto) 4.8 Thou/mm3 (1.8-7.7); Neutrophils % (Auto) 72 % (37-80); Nucleated Red Blood Cell # 0.00 Thou/mm3 (0.00-0.00); Nucleated Red Blood Cell % 0 /100 WBC (0); Platelet Count 364 Thou/mm3 (140-440); RDW Standard Deviation 45.1 fL (36.4-46.3); Red Blood Count 3.89 Miln/mm3 (4.00-5.20); White Blood Count 6.7 Thou/mm3 (3.6-11.0)
[2025-05-26 08:41] LABS: B-Type Natriuretic Peptide 226 pg/mL (0-100)
[2025-05-26] MEDS: cefTRIAXone/D5w 1gm IV premix 1 GM/50 ML BAG IV (08:43)
[2025-05-26] MEDS: ENOXAPARIN SOD INJ 40 MG/0.4 ML SYRINGE SC (08:44)
[2025-05-26] MEDS: levETIRAcetam INJ 100 MG/ML VIAL 5ML 1500 MG IVP ×2 (08:44→20:17)
[2025-05-26] MEDS: ALBUTEROL/IPRATROPIUM (Duoneb) RT SOL 3 ML NEBU INH (08:45)
[2025-05-26 08:47] LABS: Alanine Aminotransferase 16 U/L (10-49); Albumin, Serum 3.6 gm/dL (3.4-4.8); Albumin/Globulin Ratio 1.3 (1.2-2.2); Alkaline Phosphatase 126 U/L (46-116); Anion Gap 12 (7-16); Aspartate Amino Transferase 22 U/L (0-34); BUN/Creatinine Ratio 7 Ratio (12-20); Bilirubin,Total 0.3 mg/dL (0.3-1.2); Blood Urea Nitrogen < 5 mg/dL (9-23); Calcium 8.7 mg/dL (8.3-10.6); Calcium (Corrected) 9.0 mg/dL (8.5-10.1); Carbon Dioxide 30.8 mMol/L (20.0-31.0); Chloride 97 mMol/L (98-107); Creatinine (Component) 0.7 mg/dL (0.6-1.3); Estimated Creatinine Clearance 51.0 mL/min (>60); Globulin 2.8 gm/dL (2.3-3.5); Glucose 84 mg/dL (74-106); Magnesium 1.8 mg/dL (1.6-2.6); Osmolality,Calculated 275 (275-295); Phosphorous 1.8 mg/dL (2.4-5.1); Potassium 3.8 mMol/L (3.4-5.1); Sodium 140 mMol/L (136-145); Total Protein 6.4 gm/dL (5.7-8.2); eGFR > 60 See Note
[2025-05-26] MEDS: POTASSIUM PHOS 22.5 MMOL in SODIUM CHLORIDE 0.9% 500 ML 500 ML 82.778 MMOL IV (08:52)
[2025-05-26 09:00] LABS: Syphilis Nonreactive (Nonreactive)
--- NOTE | 2025-05-26 09:54 | ESPR_ITS ---
<Statement entered by Catina Schwartz MD - 05/26/25 16:24> I have reviewed the note and agree with the resident's assessment & plan with exceptions as below. I have personally reviewed labs, imaging, home meds/prior records, examined the patient, formulated and discussed management plan with the IM team. Pt examined at bedside today. Pt had bradycardia episode overnight, low as 33, Rapid response was called and pt was found to have lactic acidosis of 6.1. Pt had pacers on temporarily and shortly then removed. Pt to get cardiology consult for further workup as pt seemed to be symptomatic at the time with hypotension and lactic acidosis. D50 was also given for hypoglycemia, will continue with Accu Checks q6h. CXR reveals complete opacity of L lung and possible atelectasis. Pt was then put on biPAP with improvement seen CXR. Will continue with scheduled Xoponex ,hypertonic saline and scheduled CPT, pulmonary consulted, appreciate recommendations. BiPAP scheduled at night as pt will need continuous PPV in addition to diuresis, concern for mucous plugging. Spoke with Dr. Weiss, medical decision maker, who will continue pt's current CODE STATUS of Full code. Repeat hematology and chemistry in AM. 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 Net - 2625mL. Patient seen and examined at bedside. Patient this morning was sitting up resting in bed, saturating well on 4 L oxy mask. Patient was arousable to her name, but was fairly sleepy. According to caregiver patient appeared much more awake and 90% to baseline. Patient failed swallow eval. Exam Vital Signs Temp Pulse Resp BP Pulse Ox O2 Del Method O2 Flow Rate 97.1 F 69 19 131/95 H 100 Oxy Mask 1 05/26/25 08:00 05/26/25 08:46 05/26/25 08:46 05/26/25 08:00 05/26/25 08:46 05/26/25 08:00 05/26/25 08:11 FiO2 40 05/26/25 08:46 Narrative Exam Gen: Down syndrome. Does not verbally respond, eyes open spontaneously and track. HEENT: NCAT, PERRLA, EOMI, MMM, anicteric conjunctivae. Appears to have fungal infection along neck/back, moderately improving, now it is light pink with much less erythema. CVS: normal S1 and S2. RRR. No M/R/G. Resp: On BIPAP, coarse breath sounds Abd: soft, non-tender, non-distended. BS+ in all 4 quadrants. MSK: Neck/inner thigh erythematous rash. Right shoulder bruise, due to heparin injection according to caregiver. Neuro: Does withdraw from pain. Responds to name. Does not follow commands. Objective Labs 05/26/25 07:54 05/26/25 07:54 Labs: Laboratory Results - last 24 hr 05/26/25 05/26/25 05/26/25 01:40 02:33 03:08 WBC 8.4 RBC 3.91 L Hgb 12.6 Hct 37.6 MCV 96 MCH 32.2 MCHC 33.5 RDW Std Deviation 45.5 Plt Count 301 Neut % (Auto) 67 Lymph % (Auto) 18 Power % (Auto) 12 Eos % (Auto) 2 Baso % (Auto) 2 Neut # (Auto) 5.7 Lymph # (Auto) 1.5 Power # (Auto) 1.0 H Eos # (Auto) 0.2 Baso # (Auto) 0.1 Immature Gran # (Auto) 0.04 H Absolute Nucleated RBC 0.00 Immature Gran % 1 H Nucleated RBC % 0 Puncture Site Right Radial ABG pH 7.43 ABG pCO2 48 ABG pO2 87 ABG HCO3 32 H ABG O2 Saturation 98 ABG Base Excess 6 H FiO2 21 Sodium 141 Potassium 3.6 Chloride 100 Carbon Dioxide 27.3 Anion Gap 14 BUN 6 L Creatinine 0.4 L Estim Creat Clear Calc 89.3 eGFR > 60 BUN/Creatinine Ratio 15 Glucose 72 L Calculated Osmolality 277 Lactic Acid 6.2 H* Calcium 7.4 L Corrected Calcium 8.9 Phosphorus 1.6 L Magnesium Total Bilirubin AST ALT Alkaline Phosphatase B-Natriuretic Peptide Total Protein Albumin 2.1 L D Globulin Albumin/Globulin Ratio Ur Collection Type Urine Color Urine Clarity Urine pH Ur Specific [place] Urine Protein Urine Glucose (UA) Urine Ketones Urine Blood Urine Nitrite Urine Bilirubin Urine Urobilinogen (Auto) Ur Leukocyte Esterase Urine RBC Urine WBC Ur Squamous Epith Cells Urine Bacteria Syphilis Serology 05/26/25 05/26/25 04:55 07:54 WBC 6.7 RBC 3.89 L Hgb 12.8 Hct 37.1 MCV 95 MCH 32.9 MCHC 34.5 RDW Std Deviation 45.1 Plt Count 364 D Neut % (Auto) 72 Lymph % (Auto) 18 Power % (Auto) 7 Eos % (Auto) 1 Baso % (Auto) 1 Neut # (Auto) 4.8 Lymph # (Auto) 1.2 Power # (Auto) 0.5 Eos # (Auto) 0.1 Baso # (Auto) 0.1 Immature Gran # (Auto) 0.05 H Absolute Nucleated RBC 0.00 Immature Gran % 1 H Nucleated RBC % 0 Puncture Site ABG pH ABG pCO2 ABG pO2 ABG HCO3 ABG O2 Saturation ABG Base Excess FiO2 Sodium 140 Potassium 3.8 Chloride 97 L Carbon Dioxide 30.8 Anion Gap 12 BUN < 5 L Creatinine 0.7 Estim Creat Clear Calc 51.0 L eGFR > 60 BUN/Creatinine Ratio 7 L Glucose 84 Calculated Osmolality 275 Lactic Acid 1.2 Calcium 8.7 Corrected Calcium 9.0 Phosphorus 1.8 L Magnesium 1.8 Total Bilirubin 0.3 AST 22 ALT 16 Alkaline Phosphatase 126 H B-Natriuretic Peptide 226 H Total Protein 6.4 Albumin 3.6 D Globulin 2.8 Albumin/Globulin Ratio 1.3 Ur Collection Type Catheter Urine Color Colorless A Urine Clarity Clear Urine pH 7.5 H Ur Specific [place] 1.012 Urine Protein Negative Urine Glucose (UA) Negative Urine Ketones 4+ A Urine Blood 1+ A Urine Nitrite Negative Urine Bilirubin Negative Urine Urobilinogen (Auto) Negative Ur Leukocyte Esterase Negative Urine RBC 39 H Urine WBC 3 Ur Squamous Epith Cells < 1 Urine Bacteria None Syphilis Serology Nonreactive ABG Interpretation ABG results: 05/23/25 05/26/25 19:00 02:33 ABG pH 7.38 7.43 ABG pCO2 55 H 48 ABG pO2 99 87 ABG HCO3 33 H 32 H ABG O2 Saturation 98 98 ABG Base Excess 6 H 6 H Quality Measures Quality Measures VTE prophylaxis Advance care planning discussed with:: patient Assessment & Plan Assessment Current Active Medications: Generic Name Dose Route Start Last Admin Trade Name Freq PRN Reason Stop Dose Admin Acetaminophen 650 mg 05/23/25 20:44 Acetaminophen Supp 650 Mg Supp MD 06/22/25 20:43 Q6HR PRN Fever > 100.4 or pain Acetylcysteine 3 ml 05/26/25 15:00 Acetylcysteine Rt [place] 10% 4 Ml Nebu INH 06/25/25 14:59 Q8HRRT JERRY Atropine Sulfate 1 mg 05/26/25 08:11 Atropine Sulf Inj 0.1 Mg/Ml Syr 10 Ml IVP 06/25/25 02:08 Q10MIN PRN bradycardia Xcopri 100 Mg Tablet 0 ea 05/24/25 21:00 05/25/25 20:37 PO 06/23/25 20:59 Not Given HS JERRY Enoxaparin Sodium 40 mg 05/24/25 09:00 05/26/25 08:44 Enoxaparin Sod Inj 40 Mg/0.4 Ml Syringe SC 06/07/25 08:59 40 mg QDAY JERRY Administration Fluconazole 400 mg 05/25/25 11:15 05/26/25 08:36 Fluconazole 100 Mg Tablet PO 06/01/25 11:14 Not Given QDAY JERRY Ceftriaxone Sodium/Dextrose 1 gm in 50 mls @ 100 mls/hr 05/25/25 10:58 05/26/25 08:43 Rocephin/D5w 1gm Iv Premix IV 06/01/25 10:57 100 mls/hr QDAY JERRY Administration Potassium Phosphate 22.5 mmol/ 507.5 mls @ 82.778 mls/hr 05/26/25 08:09 05/26/25 08:52 Sodium Chloride IV 05/26/25 14:16 82.778 mls/hr X1 ONE Administration Levalbuterol HCl 1.25 mg 05/26/25 15:00 Levalbuterol Rt 1.25 Mg/0.5 Ml Nebu INH 06/25/25 14:59 Q8HRRT JERRY Levetiracetam 1,500 mg 05/24/25 21:00 05/26/25 08:44 Levetiracetam Inj 100 Mg/Ml Vial 5ml IVP 06/23/25 20:59 1,500 mg Q12HR JERRY Administration Levothyroxine Sodium 75 mcg 05/24/25 10:05 05/26/25 05:25 Levothyroxine Sodium 25 Mcg Tablet PO 06/23/25 10:04 Not Given ACBR JERRY Midodrine 5 mg 05/26/25 07:45 05/26/25 08:36 Midodrine 5 Mg Tablet PO 06/25/25 07:44 Not Given TID JERRY Nystatin 0 gm 05/24/25 14:00 05/26/25 05:26 Nystatin Pwd 15 Gm Btl TOP 06/23/25 13:59 1 applicatio TID JERRY Administration Ondansetron HCl 4 mg 05/23/25 20:44 Ondansetron Inj 2 Mg/Ml Inj 2 Ml IVP 06/22/25 20:43 Q6H PRN NAUSEA OR VOMITING Protocol Sodium Chloride 3 ml 05/26/25 09:41 Sodium Chloride Rt [place] 0.9% 3 Ml Nebu INH 06/25/25 09:40 PRN PRN SOLN Plan 70 F with PMHx significant for Down syndrome, seizures, asthma, hypothyroidism presenting to the ED obtunded in post-ictal state, admitted for breakthrough seizures and significant pleural effusion. Patient is much improved #Mucous plug? Patient is saturating and breathing much better after BIPAP, possibly due to clearing mucous plug or some bronchogenic mass. FUP CXR showed partial left lung re-expansion, was total opacification on prior CXR from earlier that night. Plan: -Continue to monitor for signs of respiratory distress -Continue BIPAP. 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 Atropine, LR and albumin given. Plan: -On tele -Atropine IVP Q10min PRN for symptomatic bradycardia -Midodrine 5mg PO TID -Cards consulted, recs appreciated #Hypoglycemia-resolved Patient failed swallow eval. Has low blood sugars over night Plan -Repeat swallow eval -D50 PRN #Breakthrough seizures #Seizure disorder Patient has known history of seizure disorder. Per caregiver, patient 2 witnessed tonic-clonic seizures in 24 hours prior to admission. Patient does not appear to have fully recovered back to baseline, per chart review patient at baseline is able to answer simple yes/no questions. Currently patient eyes open spontaneously, tracks, but does not verbally respond, does not follow commands. Patient follows with Dr. Mendoza outpatient. Patient received 1 g Keppra and 4 mg Versed in ED. - Dr. Mendoza consulted, appreciate recommendations - Keppra 1500 mg IV q12hr - Xcorpi 100 mg po qd will be delivered and given from healthcare administrative assistant (non- formulary). - EEG: Abnormal w/ diffuse slowing with questionable spike and wave activity noted in bilateral, frontal, central, and temporal areas consistent with seizure disorder. - Seizure precautions - Telemonitoring #PNA with significant pleural effusion #Asthma Patient was discharged from [facility] 05/20 after being treated for pneumonia. Caregiver reports patient is continue to have difficulty breathing. Chest CTA showed large left pleural effusion and moderate right pleural effusion. Patient saturating well on 2 L via nasal cannula. Significant rhonchi on exam. Unclear if pneumonia with failure of treatment or new HAP. 05/25: MRSA nares negative -> discontinued Vancomycin - ID consulted, recommended changing to rocephin 1 g IV qd and fluconazole 400 mg po qd; added cocci screen - Fluconazole 400mg PO QD - Ceftriaxone 1g in 50 mL IV QD - Cocci: Pending - Blood cultures: Pending - Discontinued: Flagyll 500 mg IV q8hr, Cefepime 2 gm IV q8hr - O2 as needed maintain sats 92% - Gave Lasix 20 mg IV x1 - Sputum induction prn ordered, culture and gram stain ordered for it: FUP - Thoracentesis Not done, minimal bilateral pleural effusions - Suctioning as needed - Chest PT as needed - DuoNebs as needed - Computerized Mill Recorder Dr. Zamorano consulted: recommends continuing NGT #HFpEF Echo done 05/16/2025 showing grade I diastolic dysfunction. Estimated EF at 55- 60%, estimated RVSP, 42 mmHg. Patient has some signs of fluid overload. - Strict I/O's - Weights qd - Fluid Restriction 1500 ml - Cardiology consulted #Fungal infection Patient has large erythematous rash with small whitish plaques along base of neck and inner thighs, appears to be fungal rash. Improving 05/26, much less erythema, perimeter is much smaller, still circumfential around neck and in folds of skin. - Topical nystatin - Wound care #Hypothyroidism Patient history as stated. Patient currently n.p.o. with aspiration precautions. - Restarted home Levothyroxine 75 mcg PO ACBR -FUP Thyroid lab panels DVT prophylaxis: Lovenox GI prophylaxis: None Diet: N.p.o. with aspiration precautions Lines: Peripheral IV Code status: Full code Patient plan of care was discussed with the attending physician, Dr. Tao & senior resident Dr. Lana Silva MD PGY-1 Attending Provider Attestation/Addendum I have discussed and was present for the essential components of the history, physical examination, diagnosis, and treatment plan with the resident. I agree with the patient's care as documented by the resident and amended herein by me. Maged Tao DO. Although this document has been carefully reviewed, there may still be some phonetic and other typographical errors. These errors are purely grammatical due to imperfections in the software program and should not be construed in any way to compromise the substance of the patient's medical care during this visit.
--- NOTE | 2025-05-26 10:53 | XR_ITS ---
Examination: AP chest single view Technique one AP portable upright chest single view Date and time: May 26, 2025, 11:21 AM, comparison May 26, 2025 0651 hrs. Indications: Pneumonia difficulty breathing this week. Findings: Partial reexpansion left lung Significant left lung pneumonia Large left pleural effusion Moderate enlargement cardiac contour with prominent vascular congestion Impression: Partial reexpansion left lung Significant left lung pneumonia. Large left pleural effusion
[2025-05-26 10:59] LABS: Lactate (Lactic Acid) 1.5 mMol/L (0.4-2.0)
[2025-05-26] MEDS: FUROSEMIDE INJ 10 MG/ML VIAL 2 ML 20 MG IVP (11:40)
[2025-05-26 12:10] LABS: HIV (1&2) Antibody Rapid Non-Reactive
--- NOTE | 2025-05-26 14:28 | PD.RESCONSUL ---
HPI Data of Consult Requesting Physician: Jose Juan Tao DO Admitting Provider: Usama Kruger MD Attending Provider: Jose Juan Tao DO Primary Care Provider: Rolando Rosas MD Consult Narrative History of present illness: Lillie Jensen is 70F with MHx Down syndrome, HFpEF, seizure disorder, asthma, hypothyroidism who presented to the ED on 05/23/2025 having had two seizures back to back without a return to baseline during the past 24h, difficulty breathing, and hypoxemia. Labor Training Manager noted that the pt was not at her baseline mental status, unable to answer simple yes/no questions that she had previously been able to. Patient was discharged from [facility] 05/20/2025 after treatment for pneumonia, sent home with PO antibiotics. On 05/26, pt was seen and examined at bedside. BP 130/91. HR 67, RR 17, T 97.5 and satting 100% on oxymasks 1L FiO2 40%. Labor Training Manager states that her mental capacity has been improving and she is ?90% at her baseline?. Patient was noted to be greeting the cash register mechanic upon her entry earlier. Pt was noted to be speaking but it was difficult to make out speech from her talk from behind the BiPAP. Overnight, pt had a rapid response call with HR 33 and MAP 47. She was stabilized with 0.5L of LR x2 alone. Atropine and midodrine were placed on board; however, as BP and HR have been normal, neither has been given. ED COURSE: Labs significant for: WBC 6.8, lactic acid 4.2 downtrended to 1.1, Pro-Varun negative. Imaging significant for: Head CT negative. Chest CTA showing large left pleural effusion with moderate right pleural effusion. No PE. Patient received 1 g Keppra, 4 mg Versed, 1 L bolus lactated Ringer's, vancomycin and Zosyn in the ED. Patient saturating well on 2 L via nasal cannula. PMH: Down syndrome, seizures, asthma, hypothyroidism PSH: Unknown SH: Unknown Allergies:?NKDA Medications: aspirin 81 mg, calcium carbonate-vitamin D3, cranberry extract 500 mg, Docusate 100 mg, Levetiracetam 1000 mg, Levothyroxine 75 mg, loratadine 10 mg, Montelukast 10mg, quetiapine 100mg, polyethylene glycol cc:: cc: Jose Juan K Tingle, DO Exam Vital Signs Temp Pulse Resp BP Pulse Ox O2 Del Method O2 Flow Rate 97.1 F 89 16 130/91 H 100 BiPAP 1 05/26/25 12:00 05/26/25 12:00 05/26/25 12:00 05/26/25 12:00 05/26/25 12:00 05/26/25 12:00 05/26/25 08:11 FiO2 35 05/26/25 10:21 Results Labs 05/28/25 05:54 05/28/25 05:54 Labs: Short CBC 05/26/25 05/26/25 Range/Units 03:08 07:54 WBC 8.4 6.7 (3.6-11.0) Thou/mm3 Hgb 12.6 12.8 (12.0-16.0) g/dL Hct 37.6 37.1 (36.0-46.0) % Plt Count 301 364 D (140-440) Thou/mm3 BMP 05/26/25 05/26/25 01:40 07:54 Sodium 141 140 Potassium 3.6 3.8 Chloride 100 97 L Carbon Dioxide 27.3 30.8 BUN 6 L < 5 L Creatinine 0.4 L 0.7 Glucose 72 L 84 Calcium 7.4 L 8.7 Liver Function 05/26/25 05/26/25 Range/Units 01:40 07:54 Total Bilirubin 0.3 (0.3-1.2) mg/dL AST 22 (0-34) U/L ALT 16 (10-49) U/L Alkaline Phosphatase 126 H (46-116) U/L Albumin 2.1 L D 3.6 D (3.4-4.8) gm/dL Urine 05/26/25 Range/Units 04:55 Urine Color Colorless A (Lt Yel-Yel) Urine Clarity Clear (Clear/Hazy) Urine pH 7.5 H (5.0-7.0) Ur Specific [place] 1.012 (1.001-1.035) Urine Protein Negative (Neg - Trace) Urine Glucose (UA) Negative (Negative) ABG Interpretation ABG results: 05/23/25 05/26/25 19:00 02:33 ABG pH 7.38 7.43 ABG pCO2 55 H 48 ABG pO2 99 87 ABG HCO3 33 H 32 H ABG O2 Saturation 98 98 ABG Base Excess 6 H 6 H Quality Measures Quality Measures VTE prophylaxis Advance care planning discussed with:: patient Medications Home Medications and Allergies Home Medications ?Medication ?Instructions ?Recorded ?Confirmed ?Type aspirin 81 mg chewable tablet 81 mg PO DAILY Elevated Lipids 09/23/23 05/24/25 History calcium 600 mg (as 1 tab PO BID 09/23/23 05/24/25 History carbonate)-vitamin D3 10 mcg (400 unit) tablet docusate sodium 100 mg capsule 100 mg PO BID Constipation 09/23/23 05/24/25 History levothyroxine 75 mcg tablet 75 mcg PO DAILY 09/23/23 05/24/25 History loratadine 10 mg tablet 10 mg PO DAILY 09/23/23 05/24/25 History montelukast 10 mg tablet 10 mg PO DAILY 09/23/23 05/24/25 History quetiapine 100 mg tablet 100 mg PO HS 09/23/23 05/24/25 History cranberry extract 500 mg capsule 500 mg PO QDAY 12/04/23 05/24/25 History (Cranberry Concentrate) levetiracetam 500 mg 1,000 mg PO QMORNING 03/14/24 05/24/25 History tablet,extended release 24 hr (Keppra XR) methenamine hippurate 1 gram 1 g PO QDAY 08/10/24 05/24/25 History tablet (Hiprex) polyethylene glycol 3350 17 17 g PO QDAY 03/13/25 05/24/25 History gram/dose oral powder Allergies Allergy/AdvReac Type Severity Reaction Status Date / Time No Known Allergies Allergy Unverified 03/12/25 16:06 Visit Medications Acetaminophen (Acetaminophen Supp 650 Mg Supp) [address] Q6HR PRN PRN Reason: Fever > 100.4 or pain Stop: 06/22/25 20:43 Acetylcysteine (Acetylcysteine Rt Shannon 10% 4 Ml Nebu) 3 ml INH Q8HRRT JERRY Stop: 06/25/25 14:59 Atropine Sulfate (Atropine Sulf Inj 0.1 Mg/Ml Syr 10 Ml) 1 mg IVP Q10MIN PRN PRN Reason: bradycardia Stop: 06/25/25 02:08 Xcopri 100 Mg Tablet 0 ea PO HS JERRY Stop: 06/23/25 20:59 Last Admin: 05/25/25 20:37 Dose: Not Given Enoxaparin Sodium (Enoxaparin Sod Inj 40 Mg/0.4 Ml Syringe) 40 mg SC QDAY [facility] Stop: 06/07/25 08:59 Last Admin: 05/26/25 08:44 Dose: 40 mg Fluconazole (Fluconazole 100 Mg Tablet) 400 mg PO QDAY [facility] Stop: 06/01/25 11:14 Last Admin: 05/26/25 08:36 Dose: Not Given Ceftriaxone Sodium/Dextrose (Rocephin/D5w 1gm Iv Premix) 1 gm in 50 mls @ 100 mls/hr IV QDAY [facility] Stop: 06/01/25 10:57 Last Admin: 05/26/25 08:43 Dose: 100 mls/hr Levalbuterol HCl (Levalbuterol Rt 1.25 Mg/0.5 Ml Nebu) 1.25 mg INH Q8HRRT [facility] Stop: 06/25/25 14:59 Levetiracetam (Levetiracetam Inj 100 Mg/Ml Vial 5ml) 1,500 mg IVP Q12HR [facility] Stop: 06/23/25 20:59 Last Admin: 05/26/25 08:44 Dose: 1,500 mg Levothyroxine Sodium (Levothyroxine Sodium 25 Mcg Tablet) 75 mcg PO ACBR [facility] Stop: 06/23/25 10:04 Last Admin: 05/26/25 05:25 Dose: Not Given Midodrine (Midodrine 5 Mg Tablet) 5 mg PO TID [facility] Stop: 06/25/25 07:44 Last Admin: 05/26/25 08:36 Dose: Not Given Nystatin (Nystatin Pwd 15 Gm Btl) 0 gm TOP TID [facility] Stop: 06/23/25 13:59 Last Admin: 05/26/25 05:26 Dose: 1 applicatio Ondansetron HCl (Ondansetron Inj 2 Mg/Ml Inj 2 Ml) 4 mg IVP Q6H PRN; Protocol PRN Reason: NAUSEA OR VOMITING Stop: 06/22/25 20:43 Sodium Chloride (Sodium Chloride Rt Shannon 0.9% 3 Ml Nebu) 3 ml INH PRN PRN PRN Reason: SOLN Stop: 06/25/25 09:40 Discontinued Medications Albuterol/Ipratropium (Albuterol/Ipratropium (Duoneb) Rt Shannon 3 Ml Nebu) 3 ml INH Q6HRRT [facility] Stop: 06/25/25 08:19 Last Admin: 05/26/25 08:45 Dose: 3 ml Atropine Sulfate (Atropine Sulf Inj 1 Mg/Ml Vial) 0.5 mg IVP PRN PRN PRN Reason: BRADYCARDIA IV <35 Stop: 06/25/25 01:29 Atropine Sulfate (Atropine Sulf Inj 1 Mg/Ml Vial) 0.5 mg IVP Q10MIN [facility] Stop: 05/28/25 02:16 Atropine Sulfate (Atropine Sulf Inj 1 Mg/Ml Vial) 1 mg IVP Q10MIN PRN PRN Reason: bradycardia Dextrose (Dextrose 50%-Water Inj 50 Ml Syringe) 50 ml IVP X1 ONE Stop: 05/25/25 08:15 Last Admin: 05/25/25 08:36 Dose: 50 ml Furosemide (Furosemide Inj 10 Mg/Ml 4ml Vial) 40 mg IVP X1 ONE Stop: 05/24/25 10:01 Last Admin: 05/24/25 10:18 Dose: 40 mg Furosemide (Furosemide Inj 10 Mg/Ml Vial 2 Ml) 20 mg IVP X1 ONE Stop: 05/25/25 09:39 Last Admin: 05/25/25 09:50 Dose: 20 mg Furosemide (Furosemide Inj 10 Mg/Ml Vial 2 Ml) 20 mg IVP X1 ONE Stop: 05/26/25 10:54 Last Admin: 05/26/25 11:40 Dose: 20 mg Piperacillin Sod/Tazobactam (Sod 4.5 gm/ Sodium Chloride) 100 mls @ 200 mls/hr IV X1 ONE Stop: 05/23/25 11:55 Last Infusion: 05/23/25 13:10 Dose: Infused Vancomycin HCl (Vancomycin/Water 1gm Ivpb) 200 mls @ 120 mls/hr IV X1 ONE Stop: 05/23/25 13:24 Last Infusion: 05/23/25 14:55 Dose: Infused Lactated Ringer's (Lactated Ringers) 1,000 mls @ 999 mls/hr IV .Q1H1M ONE Stop: 05/23/25 13:39 Last Infusion: 05/23/25 12:46 Dose: Infused Sodium Chloride (Ns) 1,000 mls @ 50 mls/hr IV .Q20H [facility] Stop: 05/25/25 12:44 Last Admin: 05/23/25 21:01 Dose: 50 mls/hr Piperacillin/Tazobactam/Dextrose (Zosyn) 3.375 gm in 50 mls @ 12.5 mls/hr IV Q8HR [facility]; Protocol Stop: 05/31/25 05:59 Last Admin: 05/24/25 05:07 Dose: 12.5 mls/hr Piperacillin/Tazobactam/Dextrose (Zosyn) 3.375 gm in 50 mls @ 100 mls/hr IV X1 ONE Stop: 05/23/25 21:29 Last Infusion: 05/23/25 22:06 Dose: Infused Vancomycin HCl 1,000 mg/ (Sodium Chloride) 250 mls @ 120 mls/hr IV X1 ONE Stop: 05/24/25 03:04 Last Admin: 05/24/25 00:45 Dose: 120 mls/hr Magnesium Sulfate/Dextrose (Magnesium Sulfate Ivpb) 1 gm in 100 mls @ 100 mls/hr IV X1 ONE Stop: 05/24/25 08:58 Last Admin: 05/24/25 09:47 Dose: 100 mls/hr Cefepime HCl 2 gm/ Sodium (Chloride) 50 mls @ 100 mls/hr IV Q8HR [facility] Stop: 05/31/25 08:02 Last Infusion: 05/25/25 19:09 Dose: Infused Metronidazole (Flagyl 500 Mg Iv) 500 mg in 100 mls @ 200 mls/hr IV Q8HR [facility] Stop: 05/31/25 08:02 Last Infusion: 05/25/25 19:10 Dose: Infused Potassium Chloride (Kcl Ivpb) 10 meq in 100 mls @ 100 mls/hr IV Q1H JERRY Stop: 05/25/25 09:51 Last Infusion: 05/25/25 19:10 Dose: Infused Lactated Ringer's (Lactated Ringers) 500 mls @ 999 mls/hr IV .Q31M ONE Stop: 05/26/25 02:02 Last Infusion: 05/26/25 03:13 Dose: Infused Albumin Human (Albuminar-25 Ivpb) 12.5 gm in 50 mls @ 50 mls/hr IV X1 ONE Stop: 05/26/25 02:35 Last Infusion: 05/26/25 03:13 Dose: Infused Lactated Ringer's (Lactated Ringers) 500 mls @ 999 mls/hr IV .Q31M ONE Stop: 05/26/25 02:37 Last Infusion: 05/26/25 03:13 Dose: Infused Lactated Ringer's (Lactated Ringers) 1,000 mls @ 60 mls/hr IV .[id number] JERRY Stop: 06/25/25 02:20 Last Admin: 05/26/25 02:53 Dose: 60 mls/hr Potassium Phosphate 22.5 mmol/ (Sodium Chloride) 507.5 mls @ 82.778 mls/hr IV X1 ONE Stop: 05/26/25 14:16 Last Admin: 05/26/25 08:52 Dose: 82.778 mls/hr Lactated Ringer's (Lactated Ringers) 500 mls @ 999 mls/hr IV .Q31M ONE Stop: 05/26/25 08:44 Last Admin: 05/26/25 10:05 Dose: Not Given Levetiracetam (Levetiracetam Inj 100 Mg/Ml Vial 5ml) 1,000 mg IVP X1 ONE Stop: 05/23/25 11:15 Last Admin: 05/23/25 11:23 Dose: 1,000 mg Levetiracetam (Levetiracetam Inj 100 Mg/Ml Vial 5ml) 1,000 mg IVP Q12HR [facility] Stop: 06/23/25 08:59 Last Admin: 05/24/25 09:48 Dose: 1,000 mg Levothyroxine Sodium (Levothyroxine Inj 100 Mcg Vial) 50 mcg IV X1 ONE Stop: 05/24/25 12:00 Last Admin: 05/24/25 12:56 Dose: 50 mcg Midazolam HCl (Midazolam Inj 1 Mg/Ml Vial 2 Ml) 4 mg IVP X1 PRN PRN Reason: Seizure Activity Stop: 05/24/25 11:22 Last Admin: 05/23/25 11:55 Dose: 4 mg Non-Formulary Medication (Xcorpi) 100 mg PO QDAY JERRY Stop: 06/24/25 08:59 Nystatin (Nystatin Pwd 15 Gm Btl) 0 gm TOP X1 ONE Stop: 05/23/25 17:42 Last Admin: 05/23/25 21:01 Dose: 1 tube Nystatin (Nystatin Pwd 15 Gm Btl) 0 gm TOP BID JERRY Stop: 06/23/25 08:59 Last Admin: 05/24/25 11:17 Dose: 15 gm Pharmacy Consult (Vancomycin Pharmacy To Dose 1 Each Each) 1 each IV NOW ONE Stop: 05/23/25 11:27 Last Admin: 05/23/25 13:17 Dose: 1 each Pharmacy Consult (Vancomycin Pharmacy To Dose 1 Each Each) 1 each IV QDAY PRN PRN Reason: PROTOCOL Stop: 06/23/25 08:59 Sodium Chloride (Sodium Chloride Rt 10% 15 Ml Nebu) 5 ml INH X1 ONE Stop: 05/24/25 08:06 Last Admin: 05/24/25 08:33 Dose: 5 ml Assessment & Plan Plan Lillie Jensen is 70F with MHx Down syndrome, HFpEF, seizure disorder, asthma, hypothyroidism who presented to the ED on 05/23/2025 having had two seizures back to back without a return to baseline during the previous 24h, difficulty breathing, and hypoxemia. She was admitted for inpatient management of her breakthrough seizures and pleural effusion found on imaging. Problems: #Bradycardia, paroxysmal #Hypothyroidism #HFpEF #PNA, pleural effusions, asthma #Seizure disorder On 05/26, patient had a rapid response call at 0127 with HR 33, and MAP 47. She was stablized with 0.5L LR x2 administered as bolus infusions half an hour apart. EKG showed sinus bradycardia, and T-wave inversions in V1-V4 and aVR which is an older abnormality. QTc 434. CT 132. TSH 2.59 WNL, pt is on supplemental levothyroxine 75mcg QD, however she is NPO. Echo 05/16: Normal LV size and function. There is grade I diastolic dysfunction. Estimated EF at 55-60%. The RV is normal in size and systolic function. The estimated RVSP, 42 mmHg. RAP 5. Trace TR. CTA chest showed large Lt sided and moderate Rt sided pleural effusion. Mild heart failure and was negative for PE. Pt has been diuresed Lasix IV 20mg QD today and yesterday. She is on ceftriaxone IV 1g QD and fluconazole PO 400mg QD for pneumonia. Seizure activity is being managed by neurologist Dr. Mendoza. Pt is on Keppra IV 1.5g BID and XCorpi PO 100mg QD at home. Pt has lost 7.6L cumulative I&O since her admission 05/23. WBC 6.7, T 98.9, RR 19, HR 67 -Pt did not meet SIRS any criteria at the time of Rapid Response call. Recommendations: -Consider hypoxemia as possible etiology of paroxysmal bradycardia. Pt has required supplemental oxygenation for adequate saturation. Alternative etiologies include increased vagal tone during sleep, hypoglycemia as patient has been NPO, or hypothyroidism as patient has been unable to receive levothyroxine during her hospital stay. -If there is evidence of hemodynamic instability along with bradycardia, consider treatment with atropine IV 1mg, which can be repeated three to five minutes, if needed, to a total dose of 3mg. -If symptoms do not improve following atropine, consider proceeding with temporary cardiac pacing and/or IV dopamine or epinephrine (2-10mcg/min) infusion. -Pt is on midodrine PO 5mg TID PRN when SBP <120. -Fluid restriction 1.5L daily with strict I&O -keep K+ >4 and Mg >2 at all times according to classic cardiology literature -Patient on telemetry monitoring Thank you for cardiology consultation. We appreciate the opportunity to participate in this patient's care. Will continue to follow-up on this patient This case was discussed with my attending physician, Dr. Aguiar, acute dialysis nurse. Jace Galicia DO PGY I Attending Provider Attestation/Addendum I have personally seen and examined the patient separately on the above date of service and discussed the plan of care with the resident. I reviewed the resident Dr. Mccormick consultation progress note and agree with the resident findings and plan in the note above and have also edited the documentation to reflect my findings and plan. Adonis Aguiar M.D. Interventional Cardiology
[2025-05-26] MEDS: LEVALBUTEROL RT 1.25 MG/0.5 ML NEBU INH ×2 (14:35→22:22)
[2025-05-26] MEDS: ACETYLCYSTEINE RT SOL 10% 4 ML NEBU 3 ML INH ×2 (14:35→22:23)
[2025-05-26 14:39] LABS: Cocci Serology, IgM Negative (Negative)
--- NOTE | 2025-05-26 15:14 | PC.SS ---
1514-Per rounding meeting; Pulmonary on board. Rapid called last night. Possible Code status change, residents will reach out to family regarding the Code change. Possible d/c in 2-3 days.
--- NOTE | 2025-05-26 21:01 | PD.PUCONS ---
HPI Pulmonology Consult Data of Consult Requesting Physician: Jose Juan Tao DO Primary Care Provider: Rolando Rosas MD Consult Narrative History of present illness: Lillie Jensen is 70F with MHx Down syndrome, HFpEF, seizure disorder, asthma, hypothyroidism and recent pneumonia, discharged 05/20. Patient returned with seizure activity and failure to return to baseline after postictal state. Patientwith significant hypoxia. Imaging this morning showed complete opacification of the left hemithorax. Likely combination of pleural effusion and atelectasis of the left lung. Patient presented with similar findings on initial CT with bilateral pleural effusions on 05/23. Aggressive diuresis has helped significantly with ability for patient to be weaned back to room air gradually. However with increasing O2 requirements overnight likely due to mucous plugging. Patient was given albuterol and chest physiotherapy promptly by RT this morning after my assessment. Patient with reinitiation of BiPAP with significant improvement over the few hours. Follow-up exam showed improvement in aeration on the left side. Chest x-ray confirmed reexpansion of the left upper lobe though there still may be large component of pleural effusion that may require thoracentesis. Patient already on antibiotics given recent infection. No repeat seizure activity noted. Intraparenchymal process cannot be excluded on 2D imaging along with compressed significantly on initial CT on admission due to fluid overload. Patient unable to give any significant history due to developmental delay secondary to Down syndrome. Chart reviewed significant past medical history, surgical history, social/family history reviewed. cc:: cc: Jose Juan Tao DO Review of Systems Review of Systems ROS Unobtainable: unobtainable due to mental status Past Medical History Past Medical History Comments PMH COMMENT: Pertinent findings include in HPI above. Meds Home Medications and Allergies Home Medications ?Medication ?Instructions ?Recorded ?Confirmed ?Type aspirin 81 mg chewable tablet 81 mg PO DAILY Elevated Lipids 09/23/23 05/24/25 History calcium 600 mg (as 1 tab PO BID 09/23/23 05/24/25 History carbonate)-vitamin D3 10 mcg (400 unit) tablet docusate sodium 100 mg capsule 100 mg PO BID Constipation 09/23/23 05/24/25 History levothyroxine 75 mcg tablet 75 mcg PO DAILY 09/23/23 05/24/25 History loratadine 10 mg tablet 10 mg PO DAILY 09/23/23 05/24/25 History montelukast 10 mg tablet 10 mg PO DAILY 09/23/23 05/24/25 History quetiapine 100 mg tablet 100 mg PO HS 09/23/23 05/24/25 History cranberry extract 500 mg capsule 500 mg PO QDAY 12/04/23 05/24/25 History (Cranberry Concentrate) levetiracetam 500 mg 1,000 mg PO QMORNING 03/14/24 05/24/25 History tablet,extended release 24 hr (Keppra XR) methenamine hippurate 1 gram 1 g PO QDAY 08/10/24 05/24/25 History tablet (Hiprex) polyethylene glycol 3350 17 17 g PO QDAY 03/13/25 05/24/25 History gram/dose oral powder Allergies Allergy/AdvReac Type Severity Reaction Status Date / Time No Known Allergies Allergy Unverified 03/12/25 16:06 Exam Vital Signs Temp Pulse Resp BP Pulse Ox O2 Del Method O2 Flow Rate 97.1 F 67 16 131/84 H 96 BiPAP 6 05/26/25 16:00 05/26/25 20:14 05/26/25 18:44 05/26/25 20:14 05/26/25 18:44 05/26/25 16:00 05/26/25 18:44 FiO2 35 05/26/25 14:36 Narrative Exam GEN: Increased work of breathing, alert Awake, unable to obtain orientation HEENT: Dry mucous membranes, extraocular movements intact NECK: No JVD CVS: S1/S2 present, regular rate and rhythm PULM: Normal adventitious breath sounds bilaterally anteriorly on reexamination ABD: Soft, nontender, nondistended, bowel sounds present EXT: LUE fistula present, no pedal edema, no peripheral cyanosis or clubbing PSYCH: Appropriate mood and affect NEURO: Nonfocal on gross exam Physical Exam Completion Physical Exam Complete?: Yes Results - Branch Lending Manager Labs 05/26/25 07:54 05/26/25 07:54 Labs: Short CBC 05/26/25 05/26/25 Range/Units 03:08 07:54 WBC 8.4 6.7 (3.6-11.0) Thou/mm3 Hgb 12.6 12.8 (12.0-16.0) g/dL Hct 37.6 37.1 (36.0-46.0) % Plt Count 301 364 D (140-440) Thou/mm3 BMP 05/26/25 05/26/25 01:40 07:54 Sodium 141 140 Potassium 3.6 3.8 Chloride 100 97 L Carbon Dioxide 27.3 30.8 BUN 6 L < 5 L Creatinine 0.4 L 0.7 Glucose 72 L 84 Calcium 7.4 L 8.7 Liver Function 05/26/25 05/26/25 Range/Units 01:40 07:54 Total Bilirubin 0.3 (0.3-1.2) mg/dL AST 22 (0-34) U/L ALT 16 (10-49) U/L Alkaline Phosphatase 126 H (46-116) U/L Albumin 2.1 L D 3.6 D (3.4-4.8) gm/dL Urine 05/26/25 Range/Units 04:55 Urine Color Colorless A (Lt Yel-Yel) Urine Clarity Clear (Clear/Hazy) Urine pH 7.5 H (5.0-7.0) Ur Specific [place] 1.012 (1.001-1.035) Urine Protein Negative (Neg - Trace) Urine Glucose (UA) Negative (Negative) ABG Interpretation ABG results: 05/23/25 05/26/25 19:00 02:33 ABG pH 7.38 7.43 ABG pCO2 55 H 48 ABG pO2 99 87 ABG HCO3 33 H 32 H ABG O2 Saturation 98 98 ABG Base Excess 6 H 6 H Assessment & Plan Additional Plan Additional Plan: Left lung atelectasis Bilateral pleural effusions Significant outside on chest x-ray this morning suggesting mucous plugging Continue antibiotics as per primary team With strongly advised use of albuterol and saline/hypertonic saline to help with airway clearance as tolerated Chest physiotherapy initiated after discussion with RT, this needs to be aggressively done at least 3 times a day Patient should be maintained on BiPAP throughout the day with short breaks and resume positive pressure ventilation overnight Follow-up imaging tomorrow morning, I will reassess this tomorrow morning to determine if need for ultrasound-guided thoracentesis to further help with reexpansion of the left base versus consolidative lung Maintain patient n.p.o., would avoid placement of enteral access at this point given will preclude optimal seal of BiPAP mask Discussed with medicine and plan to transition medications to IV as appropriate, withhold any that are not necessary Continue with ongoing diuresis in the interim Will need follow-up imaging in 4 to 6 weeks to ensure resolution of intraparenchymal process to exclude presence of any endobronchial lesion Thank you for allowing me to participate in the care of this patient, I remain available for any further questions should they arise Provider Notation Provider Notation: Although this document has been carefully reviewed, there may still be some phonetic and other typographical errors. These errors are purely grammatical due to imperfections in the software program and should not be construed in any way to compromise the substance of the patient's medical care during this visit. Thank you for the opportunity and privilege in assisting you with this patient's care and management.
[2025-05-26] MEDS: SODIUM CHLORIDE RT SOL 0.9% 3 ML NEBU INH (22:23)
[2025-05-27] VITALS (13 sets, daily range): BP systolic 104–131; BP diastolic 59–88; PULSE 54–86; RESP 10–25; TEMP 36.1–36.4; O2SAT 95–100; BMI 22.1
[2025-05-27] MEDS: NYSTATIN PWD 15 GM BTL TOP ×3 (06:06→21:04)
[2025-05-27 06:16] LABS: Basophils # (Auto) 0.1 Thou/mm3 (0.0-0.2); Basophils % (Auto) 2 % (0-2.5); Eosinophils # (Auto) 0.1 Thou/mm3 (0.0-0.5); Eosinophils % (Auto) 1 % (0-10); Hematocrit 32.3 % (36.0-46.0); Hemoglobin 11.2 g/dL (12.0-16.0); Immature Granulocytes Auto 0.05 Thou/mm3 (0.00-0.00); Lymphocytes # (Auto) 1.5 Thou/mm3 (1.0-4.8); Lymphocytes % (Auto) 21 % (10-50); Mean Corpuscular HGB Conc 34.7 g/dl (31.0-37.0); Mean Corpuscular Hemoglobin 32.7 pg (25.0-35.0); Mean Corpuscular Volume 94 fL (80-100); Monocytes # (Auto) 1.0 Thou/mm3 (0.0-0.8); Monocytes % (Auto) 14 % (0-12); Neutrophils # (Auto) 4.4 Thou/mm3 (1.8-7.7); Neutrophils % (Auto) 61 % (37-80); Nucleated Red Blood Cell # 0.00 Thou/mm3 (0.00-0.00); Nucleated Red Blood Cell % 0 /100 WBC (0); Platelet Count 320 Thou/mm3 (140-440); RDW Standard Deviation 45.8 fL (36.4-46.3); Red Blood Count 3.43 Miln/mm3 (4.00-5.20); White Blood Count 7.2 Thou/mm3 (3.6-11.0)
[2025-05-27] MEDS: LEVALBUTEROL RT 1.25 MG/0.5 ML NEBU INH ×3 (06:17→22:46)
[2025-05-27] MEDS: ACETYLCYSTEINE RT SOL 10% 4 ML NEBU 3 ML INH ×3 (06:17→22:46)
[2025-05-27 07:08] LABS: Alanine Aminotransferase 11 U/L (10-49); Albumin, Serum 3.1 gm/dL (3.4-4.8); Albumin/Globulin Ratio 1.4 (1.2-2.2); Alkaline Phosphatase 106 U/L (46-116); Anion Gap 16 (7-16); Aspartate Amino Transferase 17 U/L (0-34); BUN/Creatinine Ratio 7 Ratio (12-20); Bilirubin,Total 0.2 mg/dL (0.3-1.2); Blood Urea Nitrogen < 5 mg/dL (9-23); Calcium 8.6 mg/dL (8.3-10.6); Calcium (Corrected) 9.3 mg/dL (8.5-10.1); Carbon Dioxide 29.1 mMol/L (20.0-31.0); Chloride 97 mMol/L (98-107); Creatinine (Component) 0.7 mg/dL (0.6-1.3); Estimated Creatinine Clearance 46.9 mL/min (>60); Free T4 (Free Thyroxine) 0.79 ng/dL (0.89-1.76); Globulin 2.2 gm/dL (2.3-3.5); Glucose 85 mg/dL (74-106); Magnesium 1.7 mg/dL (1.6-2.6); Osmolality,Calculated 279 (275-295); Phosphorous 2.7 mg/dL (2.4-5.1); Potassium 3.1 mMol/L (3.4-5.1); Sodium 142 mMol/L (136-145); Thyroid Stimulating Hormone 4.32 uIU/mL (0.55-4.78); Total Protein 5.3 gm/dL (5.7-8.2); eGFR > 60 See Note
--- NOTE | 2025-05-27 07:35 | XR_ITS ---
Examination: AP chest single view Technique: AP portable semiupright chest single view Date and time: May 27, 2025, 0803 hrs., Comparison May 26, 2025 Indications: Chest pain today. Findings: Significant pneumonia left lung. Significant left pleural fluid. Mild heart failure with enlargement cardiac contour and prominent vascular congestion or early septal edema at the right lung base. Prominent osteopenia. Impression: Significant pneumonia left lung. Significant left pleural fluid. Mild heart failure.
[2025-05-27] MEDS: FUROSEMIDE INJ 10 MG/ML VIAL 2 ML 20 MG IVP (08:53)
[2025-05-27] MEDS: POTASSIUM CHL 10 mEq IVPB 10 MEQ/100 ML BAG 100 MEQ IV (08:56)
[2025-05-27] MEDS: ENOXAPARIN SOD INJ 40 MG/0.4 ML SYRINGE SC (08:57)
[2025-05-27] MEDS: cefTRIAXone/D5w 1gm IV premix 1 GM/50 ML BAG IV (08:57)
[2025-05-27] MEDS: levETIRAcetam INJ 100 MG/ML VIAL 5ML 1500 MG IVP ×2 (08:57→20:54)
--- NOTE | 2025-05-27 09:57 | PD.RESPRO ---
Documentation for date of: 05/27/25 Subjective Subjective Interval history: Patient is evaluated at bedside, currently sleeping, care provider also in the room, questions and concerns were answered, currently patient seen on BiPAP, noted improvement in the effusion on today's x-ray, does have significant pneumonia. There was concern for bradycardia, and telemetry reviewed, no bradycardia events overnight, per care provider patient is sleepy as she got her Keppra this morning. Noted hypokalemia and hypomagnesemia, electrolytes replenished, to keep potassium more than 4 and magnesium more than 2 especially given concern for bradycardia. Will continue to follow the pt. Exam Vital Signs Temp Pulse Resp BP Pulse Ox O2 Del Method O2 Flow Rate 97.5 F 61 18 121/71 98 Oxy Mask 6 05/27/25 08:00 05/27/25 08:53 05/27/25 08:07 05/27/25 08:53 05/27/25 08:07 05/27/25 08:00 05/27/25 06:19 FiO2 35 05/27/25 08:07 Narrative Exam General: Currently seen on BiPAP, patient is sleepy but arousable. Skin: Intact, no cyanosis or edema noted. Noted erythematous patch around patient's neck, possibly fungal infection. HEENT: Atraumatic/normocephalic, LONNY, neck supple Heart: RRR, S1 and S2 without clicks or murmurs Lungs: Noted crackles bilaterally on auscultation, left-sided crackles in middle and basal zones. Currently on BiPAP. Abdomen: Soft, nontender. Bowel sounds present . Vascular: Peripheral pulses palpable Neuro: No focal neurological deficits noted. Unable to completely assess her mental function due to mental status. Objective Labs 05/28/25 05:54 05/28/25 05:54 Labs: Laboratory Results - last 24 hr 05/25/25 05/26/25 05/26/25 12:45 07:54 10:50 WBC RBC Hgb Hct MCV MCH MCHC RDW Std Deviation Plt Count Neut % (Auto) Lymph % (Auto) [place] % (Auto) Eos % (Auto) Baso % (Auto) Neut # (Auto) Lymph # (Auto) [place] # (Auto) Eos # (Auto) Baso # (Auto) Immature Gran # (Auto) Absolute Nucleated RBC Immature Gran % Nucleated RBC % Sodium Potassium Chloride Carbon Dioxide Anion Gap BUN Creatinine Estim Creat Clear Calc eGFR BUN/Creatinine Ratio Glucose Calculated Osmolality Lactic Acid 1.5 Calcium Corrected Calcium Phosphorus Magnesium Total Bilirubin AST ALT Alkaline Phosphatase Total Protein Albumin Globulin Albumin/Globulin Ratio TSH Free T4 Coccidioides IgM Ab Negative HIV 1&2 Antibody Rapid Non-Reactive 05/27/25 05:39 WBC 7.2 RBC 3.43 L Hgb 11.2 L Hct 32.3 L MCV 94 MCH 32.7 MCHC 34.7 RDW Std Deviation 45.8 Plt Count 320 D Neut % (Auto) 61 Lymph % (Auto) 21 [place] % (Auto) 14 H Eos % (Auto) 1 Baso % (Auto) 2 Neut # (Auto) 4.4 Lymph # (Auto) 1.5 [place] # (Auto) 1.0 H Eos # (Auto) 0.1 Baso # (Auto) 0.1 Immature Gran # (Auto) 0.05 H Absolute Nucleated RBC 0.00 Immature Gran % 1 H Nucleated RBC % 0 Sodium 142 Potassium 3.1 L D Chloride 97 L Carbon Dioxide 29.1 Anion Gap 16 BUN < 5 L Creatinine 0.7 Estim Creat Clear Calc 46.9 L eGFR > 60 BUN/Creatinine Ratio 7 L Glucose 85 Calculated Osmolality 279 Lactic Acid Calcium 8.6 Corrected Calcium 9.3 Phosphorus 2.7 Magnesium 1.7 Total Bilirubin 0.2 L AST 17 ALT 11 Alkaline Phosphatase 106 D Total Protein 5.3 L Albumin 3.1 L D Globulin 2.2 L Albumin/Globulin Ratio 1.4 TSH 4.32 Free T4 0.79 L Coccidioides IgM Ab HIV 1&2 Antibody Rapid ABG Interpretation ABG results: 05/23/25 05/26/25 19:00 02:33 ABG pH 7.38 7.43 ABG pCO2 55 H 48 ABG pO2 99 87 ABG HCO3 33 H 32 H ABG O2 Saturation 98 98 ABG Base Excess 6 H 6 H Quality Measures Quality Measures VTE prophylaxis Advance care planning discussed with:: other Assessment & Plan Assessment Current Active Medications: Generic Name Dose Route Start Last Admin Trade Name Freq PRN Reason Stop Dose Admin Acetaminophen 650 mg 05/23/25 20:44 Acetaminophen Supp 650 Mg Supp [place] 06/22/25 20:43 Q6HR PRN Fever > 100.4 or pain Acetylcysteine 3 ml 05/26/25 15:00 05/27/25 06:17 Acetylcysteine Rt [place] 10% 4 Ml Nebu INH 06/25/25 14:59 3 ml Q8HRRT JERRY Administration Atropine Sulfate 1 mg 05/26/25 08:11 Atropine Sulf Inj 0.1 Mg/Ml Syr 10 Ml IVP 06/25/25 02:08 Q10MIN PRN bradycardia Xcopri 100 Mg Tablet 0 ea 05/24/25 21:00 05/26/25 20:14 PO 06/23/25 20:59 Not Given HS JERRY Dextrose 50 ml 05/26/25 18:07 Dextrose 50%-Water Inj 50 Ml Syringe IV 06/25/25 18:06 Q15MIN PRN BG <50 OR BG <70 & pt unresponsive Dextrose 25 ml 05/26/25 18:07 Dextrose 50%-Water Inj 50 Ml Syringe IV 06/25/25 18:06 Q15MIN PRN BG 50-70 responsive npo pt Enoxaparin Sodium 40 mg 05/24/25 09:00 05/27/25 08:57 Enoxaparin Sod Inj 40 Mg/0.4 Ml Syringe SC 06/07/25 08:59 40 mg QDAY JERRY Administration Furosemide 20 mg 05/27/25 09:00 05/27/25 08:53 Furosemide Inj 10 Mg/Ml Vial 2 Ml IVP 06/26/25 08:59 20 mg QDAY JERRY Administration Glucagon 1 mg 05/26/25 18:07 Glucagon Inj 1 Mg Vial IM Q15MIN PRN BG <70, and no IV access Ceftriaxone Sodium/Dextrose 1 gm in 50 mls @ 100 mls/hr 05/25/25 10:58 05/27/25 08:57 Rocephin/D5w 1gm Iv Premix IV 06/01/25 10:57 100 mls/hr QDAY JERRY Administration Potassium Chloride 10 meq in 100 mls @ 100 mls/hr 05/27/25 07:25 05/27/25 08:56 Kcl Ivpb IV 05/27/25 11:24 100 mls/hr Q1H JERRY Administration Magnesium Sulfate 4 gm in 50 mls @ 12.5 mls/hr 05/27/25 12:00 Magnesium Sulfate Ivpb IV 05/27/25 15:59 X1 ONE Potassium Chloride 10 meq in 100 mls @ 100 mls/hr 05/27/25 15:00 Kcl Ivpb IV 05/27/25 18:59 Q1H JERRY Levalbuterol HCl 1.25 mg 05/26/25 15:00 05/27/25 06:17 Levalbuterol Rt 1.25 Mg/0.5 Ml Nebu INH 06/25/25 14:59 1.25 mg Q8HRRT JERRY Administration Levetiracetam 1,500 mg 05/24/25 21:00 05/27/25 08:57 Levetiracetam Inj 100 Mg/Ml Vial 5ml IVP 06/23/25 20:59 1,500 mg Q12HR JERRY Administration Levothyroxine Sodium 50 mcg 05/27/25 06:00 05/27/25 06:05 Levothyroxine Inj 100 Mcg Vial IV 06/26/25 05:59 Not Given ACBR JERRY Midodrine 5 mg 05/26/25 07:45 05/27/25 06:05 Midodrine 5 Mg Tablet PO 06/25/25 07:44 Not Given TID JERRY Nystatin 0 gm 05/24/25 14:00 05/27/25 06:06 Nystatin Pwd 15 Gm Btl TOP 06/23/25 13:59 1 applicatio TID JERRY Administration Ondansetron HCl 4 mg 05/23/25 20:44 Ondansetron Inj 2 Mg/Ml Inj 2 Ml IVP 06/22/25 20:43 Q6H PRN NAUSEA OR VOMITING Protocol Sodium Chloride 3 ml 05/26/25 09:41 05/26/25 22:23 Sodium Chloride Rt [place] 0.9% 3 Ml Nebu INH 06/25/25 09:40 3 ml PRN PRN Administration SOLN Plan Lillie Jensen is 70F with MHx Down's syndrome, HFpEF, seizure disorder, asthma, hypothyroidism who presented to the ED on 05/23/2025 having had two seizures back to back without a return to baseline during the previous 24h, difficulty breathing, and hypoxemia. She was admitted for inpatient management of her breakthrough seizures and acute hypoxic respiratory failure likely secondary to pneumonia and bilateral large pleural effusions Problems: 1. Bradycardia 2. Bilateral pleural effusions 3. Pneumonia 4. HFpEF 5. Hypothyroidism 6. Acute hypoxic respiratory failure 7. Hypokalemia 8. Hypomagnesemia 9. Seizures 10. History of Down syndrome 11. History of fast Patient was admitted following breakthrough seizures, and altered mental status following recurrent seizures, also noted to have breathing difficulty, admitted with acute hypoxic respiratory failure initial imaging showed bilateral large pleural effusions, CTA chest showed large Lt sided and moderate Rt sided pleural effusion. Mild heart failure and was negative for PE. patient was diuresed initially which led to improvement in pleural effusion, still has large left-sided pleural effusion, also noted to have pneumonia, infectious disease consultation to Dr Meier is placed, ID following. Started on ceftriaxone and fluconazole. Pending coccidiomycosis serology. Prior echocardiogram shows normal LV size and function normal EF, concern for diastolic dysfunction, bilateral pleural effusions possibly due to diastolic heart failure, agree with diuresing, as noted improvement following diuresis. Possible differentials include parapneumonic effusion, thoracentesis was ordered but unable to find enough fluid for thoracentesis by IR. Of note patient had recent admission for pneumonia and ICU stay for hypotension. Rapid response was called on 05/26/2025 at 1:27 AM for hypotension and bradycardia, noted heart rate 33 and MAP 47, received IV fluids 500 mL LR x 2, which improved blood pressure, EKG at the time showed sinus bradycardia, also noted T wave inversions which are consistent with prior EKG. Transient hypotension due to decreased intravascular volume which improved after fluid boluses, bradycardia likely occurred during sleep. Echo 05/16: Normal LV size and function. There is grade I diastolic dysfunction. Estimated EF at 55-60%. The RV is normal in size and systolic function. The estimated RVSP, 42 mmHg. RAP 5. Trace TR. Seizure activity is being managed by neurologist Dr. Mendoza. Pt is on Keppra IV 1.5g BID and XCorpi PO 100mg QD at home. Pt has lost 7.6L cumulative I&O since her admission 05/23. Recommendations: -Transient bradycardia occurring during sleep in the setting of acute hypoxic respiratory failure. Overnight telemetry reviewed, no repeated occurrences of bradycardia overnight on 05/27/2025. Consider proceeding with ACLS bradycardia algorithm if patient has symptomatic bradycardia again. -Pt is on midodrine PO 5mg as needed, consider adding holding parameters for midodrine as it can cause bradycardia. -Fluid restriction 1.5L daily with strict I&O -keep K+ >4 and Mg >2 at all times Rest of the management deferred to primary team. Thank you for cardiology consultation. We appreciate the opportunity to participate in this patient's care. Will continue to follow-up on this patient This case was discussed with white work cleaner, Dr. Aguiar. Aletha Wisdom MD PG3 Attending Provider Attestation/Addendum I have personally seen and examined the patient separately on the above date of service and discussed the plan of care with the resident. I reviewed the resident Dr. Mccormick consultation progress note and agree with the resident findings and plan in the note above and have also edited the documentation to reflect my findings and plan. Adonis Aguiar M.D. Interventional Cardiology
--- NOTE | 2025-05-27 10:03 | ESPR_ITS ---
<Statement entered by Angy Lowe MD - 05/27/25 16:04> Patient was seen and examined at bedside. She was sleeping in bed comfortably. Was on facemask, will put the patient on BiPAP continuously with 10 to 15 minutes breaks as per the pulmonology recommendations to help prevent further lung atelectasis. So far the patient has not had any episode of seizure. She is currently on Keppra 1500 mg twice daily Documentation for date of: 05/27/25 Subjective Subjective Interval history: Net - 1390mL. Patient seen and examined at bedside. Patient this morning was sitting up resting in bed, saturating well on Bipap. Patient was arousable to her name, but was fairly sleepy. Patient failed swallow eval yesterday. We are not starting an NG tube due to risks of re-blocking bronchial mass. Continuing D50. Dr. Weiss was called yesterday and confirmed patient's DNR status. Exam Vital Signs Temp Pulse Resp BP Pulse Ox O2 Del Method O2 Flow Rate 97.5 F 61 18 121/71 98 Oxy Mask 6 05/27/25 08:00 05/27/25 08:53 05/27/25 08:07 05/27/25 08:53 05/27/25 08:07 05/27/25 08:00 05/27/25 06:19 FiO2 35 05/27/25 08:07 Narrative Exam Gen: Down syndrome. Does not verbally respond, eyes open spontaneously and track. HEENT: NCAT, PERRLA, EOMI, MMM, anicteric conjunctivae. Appears to have fungal infection along neck/back, much improving, now it is light pink with much less erythema. CVS: normal S1 and S2. RRR. No M/R/G. Resp: On BIPAP, coarse breath sounds Abd: soft, non-tender, non-distended. BS+ in all 4 quadrants. MSK: Neck/inner thigh erythematous rash. Right shoulder bruise improved, due to heparin injection according to caregiver. Neuro: Does withdraw from pain. Responds to name. Does not follow commands. Objective Labs 05/27/25 05:39 05/27/25 05:39 Labs: Laboratory Results - last 24 hr 05/25/25 05/26/25 05/26/25 12:45 07:54 10:50 WBC RBC Hgb Hct MCV MCH MCHC RDW Std Deviation Plt Count Neut % (Auto) Lymph % (Auto) [place] % (Auto) Eos % (Auto) Baso % (Auto) Neut # (Auto) Lymph # (Auto) [place] # (Auto) Eos # (Auto) Baso # (Auto) Immature Gran # (Auto) Absolute Nucleated RBC Immature Gran % Nucleated RBC % Sodium Potassium Chloride Carbon Dioxide Anion Gap BUN Creatinine Estim Creat Clear Calc eGFR BUN/Creatinine Ratio Glucose Calculated Osmolality Lactic Acid 1.5 Calcium Corrected Calcium Phosphorus Magnesium Total Bilirubin AST ALT Alkaline Phosphatase Total Protein Albumin Globulin Albumin/Globulin Ratio TSH Free T4 Coccidioides IgM Ab Negative HIV 1&2 Antibody Rapid Non-Reactive 05/27/25 05:39 WBC 7.2 RBC 3.43 L Hgb 11.2 L Hct 32.3 L MCV 94 MCH 32.7 MCHC 34.7 RDW Std Deviation 45.8 Plt Count 320 D Neut % (Auto) 61 Lymph % (Auto) 21 [place] % (Auto) 14 H Eos % (Auto) 1 Baso % (Auto) 2 Neut # (Auto) 4.4 Lymph # (Auto) 1.5 [place] # (Auto) 1.0 H Eos # (Auto) 0.1 Baso # (Auto) 0.1 Immature Gran # (Auto) 0.05 H Absolute Nucleated RBC 0.00 Immature Gran % 1 H Nucleated RBC % 0 Sodium 142 Potassium 3.1 L D Chloride 97 L Carbon Dioxide 29.1 Anion Gap 16 BUN < 5 L Creatinine 0.7 Estim Creat Clear Calc 46.9 L eGFR > 60 BUN/Creatinine Ratio 7 L Glucose 85 Calculated Osmolality 279 Lactic Acid Calcium 8.6 Corrected Calcium 9.3 Phosphorus 2.7 Magnesium 1.7 Total Bilirubin 0.2 L AST 17 ALT 11 Alkaline Phosphatase 106 D Total Protein 5.3 L Albumin 3.1 L D Globulin 2.2 L Albumin/Globulin Ratio 1.4 TSH 4.32 Free T4 0.79 L Coccidioides IgM Ab HIV 1&2 Antibody Rapid ABG Interpretation ABG results: 05/23/25 05/26/25 19:00 02:33 ABG pH 7.38 7.43 ABG pCO2 55 H 48 ABG pO2 99 87 ABG HCO3 33 H 32 H ABG O2 Saturation 98 98 ABG Base Excess 6 H 6 H Quality Measures Quality Measures VTE prophylaxis Advance care planning discussed with:: legal surragate Assessment & Plan Assessment Current Active Medications: Generic Name Dose Route Start Last Admin Trade Name Freq PRN Reason Stop Dose Admin Acetaminophen 650 mg 05/23/25 20:44 Acetaminophen Supp 650 Mg Supp [place] 06/22/25 20:43 Q6HR PRN Fever > 100.4 or pain Acetylcysteine 3 ml 05/26/25 15:00 05/27/25 06:17 Acetylcysteine Rt [place] 10% 4 Ml Nebu INH 06/25/25 14:59 3 ml Q8HRRT JERRY Administration Atropine Sulfate 1 mg 05/26/25 08:11 Atropine Sulf Inj 0.1 Mg/Ml Syr 10 Ml IVP 06/25/25 02:08 Q10MIN PRN bradycardia Xcopri 100 Mg Tablet 0 ea 05/24/25 21:00 05/26/25 20:14 PO 06/23/25 20:59 Not Given HS JERRY Dextrose 50 ml 05/26/25 18:07 Dextrose 50%-Water Inj 50 Ml Syringe IV 06/25/25 18:06 Q15MIN PRN BG <50 OR BG <70 & pt unresponsive Dextrose 25 ml 05/26/25 18:07 Dextrose 50%-Water Inj 50 Ml Syringe IV 06/25/25 18:06 Q15MIN PRN BG 50-70 responsive npo pt Enoxaparin Sodium 40 mg 05/24/25 09:00 05/27/25 08:57 Enoxaparin Sod Inj 40 Mg/0.4 Ml Syringe SC 06/07/25 08:59 40 mg QDAY JERRY Administration Furosemide 20 mg 05/27/25 09:00 05/27/25 08:53 Furosemide Inj 10 Mg/Ml Vial 2 Ml IVP 06/26/25 08:59 20 mg QDAY JERRY Administration Glucagon 1 mg 05/26/25 18:07 Glucagon Inj 1 Mg Vial IM Q15MIN PRN BG <70, and no IV access Ceftriaxone Sodium/Dextrose 1 gm in 50 mls @ 100 mls/hr 05/25/25 10:58 05/27/25 08:57 Rocephin/D5w 1gm Iv Premix IV 06/01/25 10:57 100 mls/hr QDAY JERRY Administration Potassium Chloride 10 meq in 100 mls @ 100 mls/hr 05/27/25 07:25 05/27/25 08:56 Kcl Ivpb IV 05/27/25 11:24 100 mls/hr Q1H JERRY Administration Magnesium Sulfate 4 gm in 50 mls @ 12.5 mls/hr 05/27/25 12:00 Magnesium Sulfate Ivpb IV 05/27/25 15:59 X1 ONE Potassium Chloride 10 meq in 100 mls @ 100 mls/hr 05/27/25 15:00 Kcl Ivpb IV 05/27/25 18:59 Q1H JERRY Levalbuterol HCl 1.25 mg 05/26/25 15:00 05/27/25 06:17 Levalbuterol Rt 1.25 Mg/0.5 Ml Nebu INH 06/25/25 14:59 1.25 mg Q8HRRT JERRY Administration Levetiracetam 1,500 mg 05/24/25 21:00 05/27/25 08:57 Levetiracetam Inj 100 Mg/Ml Vial 5ml IVP 06/23/25 20:59 1,500 mg Q12HR JERRY Administration Levothyroxine Sodium 50 mcg 05/27/25 06:00 05/27/25 06:05 Levothyroxine Inj 100 Mcg Vial IV 06/26/25 05:59 Not Given ACBR JERRY Midodrine 5 mg 05/26/25 07:45 05/27/25 06:05 Midodrine 5 Mg Tablet PO 06/25/25 07:44 Not Given TID JERRY Nystatin 0 gm 05/24/25 14:00 05/27/25 06:06 Nystatin Pwd 15 Gm Btl TOP 06/23/25 13:59 1 applicatio TID JERRY Administration Ondansetron HCl 4 mg 05/23/25 20:44 Ondansetron Inj 2 Mg/Ml Inj 2 Ml IVP 06/22/25 20:43 Q6H PRN NAUSEA OR VOMITING Protocol Sodium Chloride 3 ml 05/26/25 09:41 05/26/25 22:23 Sodium Chloride Rt [place] 0.9% 3 Ml Nebu INH 06/25/25 09:40 3 ml PRN PRN Administration SOLN Plan 70 F with PMHx significant for Down syndrome, seizures, asthma, hypothyroidism presenting to the ED obtunded in post-ictal state, admitted for breakthrough seizures and significant pleural effusion. Patient is much improved; bowever failed her swallow study, plan to repeat when speech therapy is back, do not want to do NGT because concern for blocking bronchial mass #Mucous plug? #Atelectasis #Pleural Effusions Patient is saturating and breathing much better after BIPAP, possibly due to clearing mucous plug or some bronchogenic mass. FUP CXR showed partial left lung re-expansion, was total opacification on prior CXR from earlier that night. Bilateral pleural effuisions found on CTAP, too minimal to drain per IR. Plan: -Continue to monitor for signs of respiratory distress -Continue BIPAP. Continuous with 10min breaks. -Chest PT -Levalbuterol -NPO for now failed swallow screen will reattempt tomorrow. 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 Atropine, LR and albumin given. Plan: -On tele -Atropine IVP Q10min PRN for symptomatic bradycardia -Midodrine 5mg PO TID -Cards consulted, recs appreciated #Hypoglycemia-resolved Patient failed swallow eval. Has low blood sugars over night Plan -Repeat swallow eval -D50 PRN #Breakthrough seizures #Seizure disorder Patient has known history of seizure disorder. Per caregiver, patient 2 witnessed tonic-clonic seizures in 24 hours prior to admission. Patient does not appear to have fully recovered back to baseline, per chart review patient at baseline is able to answer simple yes/no questions. Currently patient eyes open spontaneously, tracks, but does not verbally respond, does not follow commands. Patient follows with Dr. Mendoza outpatient. Patient received 1 g Keppra and 4 mg Versed in ED. - Dr. Mendoza consulted, appreciate recommendations - Keppra 1500 mg IV q12hr - Xcorpi 100 mg po qd will be delivered and given from resident care assistant (non- formulary). - EEG: Abnormal w/ diffuse slowing with questionable spike and wave activity noted in bilateral, frontal, central, and temporal areas consistent with seizure disorder. - Seizure precautions - Telemonitoring #PNA with significant pleural effusion #Asthma Patient was discharged from [facility] 05/20 after being treated for pneumonia. Caregiver reports patient is continue to have difficulty breathing. Chest CTA showed large left pleural effusion and moderate right pleural effusion. Patient saturating well on 2 L via nasal cannula. Significant rhonchi on exam. Unclear if pneumonia with failure of treatment or new HAP. 05/25: MRSA nares negative -> discontinued Vancomycin - ID consulted, recommended changing to rocephin 1 g IV qd and fluconazole 400 mg po qd; added cocci screen - Fluconazole 400mg PO QD - Ceftriaxone 1g in 50 mL IV QD - Cocci: Pending - Blood cultures: Pending - Discontinued: Flagyll 500 mg IV q8hr, Cefepime 2 gm IV q8hr - O2 as needed maintain sats 92% - Gave Lasix 20 mg IV x1 - Sputum induction prn ordered, culture and gram stain ordered for it: FUP - Thoracentesis Not done, minimal bilateral pleural effusions - Suctioning as needed - Chest PT as needed - DuoNebs as needed - Upholstery Department Supervisor Dr. Zamorano consulted: recommends continuing NGT #HFpEF Echo done 05/16/2025 showing grade I diastolic dysfunction. Estimated EF at 55- 60%, estimated RVSP, 42 mmHg. Patient has some signs of fluid overload. - Strict I/O's - Weights qd - Fluid Restriction 1500 ml - Cardiology consulted #Fungal infection Patient has large erythematous rash with small whitish plaques along base of neck and inner thighs, appears to be fungal rash. Improving 05/26, much less erythema, perimeter is much smaller, still circumfential around neck and in folds of skin. - Topical nystatin - Wound care #Hypothyroidism Patient history as stated. Patient currently n.p.o. with aspiration precautions. - Restarted home Levothyroxine 75 mcg PO ACBR -FUP Thyroid lab panels DVT prophylaxis: Lovenox GI prophylaxis: None Diet: N.p.o. with aspiration precautions Lines: Peripheral IV Code status: Full code Patient plan of care was discussed with the attending physician, Dr. Tao & senior resident Dr. Lana Silva MD PGY-1 Attending Provider Attestation/Addendum I have discussed and was present for the essential components of the history, physical examination, diagnosis, and treatment plan with the resident. I agree with the patient's care as documented by the resident and amended herein by me. Maged Tao DO. Although this document has been carefully reviewed, there may still be some phonetic and other typographical errors. These errors are purely grammatical due to imperfections in the software program and should not be construed in any way to compromise the substance of the patient's medical care during this visit.
[2025-05-27] MEDS: POTASSIUM CHL 10 mEq IVPB 10 MEQ/100 ML BAG 60 MEQ IV ×2 (10:54→12:57)
[2025-05-27] MEDS: Magnesium Sulfate 4 GM Ivpb 4 GM/50 ML BAG IV (12:57)
[2025-05-27] MEDS: POTASSIUM CHL 10 mEq IVPB 10 MEQ/100 ML BAG 70 MEQ IV ×5 (14:19→20:53)
[2025-05-27 15:26] LABS: Cocci Serology, IgG Negative (Negative)
--- NOTE | 2025-05-27 16:10 | PC.SS ---
Per afternoon rounding note: Pulmonary on board. Possible d/c in 2-3 days.
--- NOTE | 2025-05-27 23:55 | VVPN_ITS ---
Telemedicine visit statement This visit was conducted with the use of interactive audio and video telecommunications system that permits real time communication between the patient and the provider. Patient's verbal consent for virtual visit was obtained on 05/27/25 at 2355. Documentation for date of: 05/27/25 Subjective Subjective Interval history: Patient is in telemetry, no major seizures reported. Virtual exam Vital Signs Temp Pulse Resp BP Pulse Ox O2 Del Method O2 Flow Rate 97.1 F 61 15 119/72 100 Oxy Mask 4 05/27/25 20:00 05/27/25 22:51 05/27/25 22:51 05/27/25 20:00 05/27/25 22:51 05/27/25 20:00 05/27/25 22:51 FiO2 35 05/27/25 22:51 Objective Labs 05/28/25 05:54 05/27/25 05:39 Labs: Laboratory Results - last 24 hr 05/25/25 05/27/25 12:45 05:39 WBC 7.2 RBC 3.43 L Hgb 11.2 L Hct 32.3 L MCV 94 MCH 32.7 MCHC 34.7 RDW Std Deviation 45.8 Plt Count 320 D Neut % (Auto) 61 Lymph % (Auto) 21 [place] % (Auto) 14 H Eos % (Auto) 1 Baso % (Auto) 2 Neut # (Auto) 4.4 Lymph # (Auto) 1.5 [place] # (Auto) 1.0 H Eos # (Auto) 0.1 Baso # (Auto) 0.1 Immature Gran # (Auto) 0.05 H Absolute Nucleated RBC 0.00 Immature Gran % 1 H Nucleated RBC % 0 Sodium 142 Potassium 3.1 L D Chloride 97 L Carbon Dioxide 29.1 Anion Gap 16 BUN < 5 L Creatinine 0.7 Estim Creat Clear Calc 46.9 L eGFR > 60 BUN/Creatinine Ratio 7 L Glucose 85 Calculated Osmolality 279 Calcium 8.6 Corrected Calcium 9.3 Phosphorus 2.7 Magnesium 1.7 Total Bilirubin 0.2 L AST 17 ALT 11 Alkaline Phosphatase 106 D Total Protein 5.3 L Albumin 3.1 L D Globulin 2.2 L Albumin/Globulin Ratio 1.4 TSH 4.32 Free T4 0.79 L Coccidioides IgG Ab Negative ABG Interpretation ABG results: 05/23/25 05/26/25 19:00 02:33 ABG pH 7.38 7.43 ABG pCO2 55 H 48 ABG pO2 99 87 ABG HCO3 33 H 32 H ABG O2 Saturation 98 98 ABG Base Excess 6 H 6 H Assessment & Plan Problem List (1) Seizure: Status: Acute Assessment and plan: Continue with Keppra and Xcopri Follow seizure precautions and continue to monitor for any breakthrough seizures (2) Pneumonia: Status: Acute Assessment and plan: Continue with the current IV antibiotics Continue to monitor for respiratory distress from hypoxia
[2025-05-28] VITALS (19 sets, daily range): BP systolic 81–130; BP diastolic 58–68; PULSE 53–92; RESP 14–22; TEMP 36.2–36.7; O2SAT 93–100; BMI 21.8; BMI 12.0
[2025-05-28] MEDS: NYSTATIN PWD 15 GM BTL TOP ×3 (05:16→21:34)
[2025-05-28] MEDS: ACETYLCYSTEINE RT SOL 10% 4 ML NEBU 3 ML INH ×3 (06:07→23:19)
[2025-05-28] MEDS: LEVALBUTEROL RT 1.25 MG/0.5 ML NEBU INH ×3 (06:08→23:19)
[2025-05-28 06:18] LABS: Basophils # (Auto) 0.1 Thou/mm3 (0.0-0.2); Basophils % (Auto) 2 % (0-2.5); Eosinophils # (Auto) 0.1 Thou/mm3 (0.0-0.5); Eosinophils % (Auto) 1 % (0-10); Hematocrit 36.1 % (36.0-46.0); Hemoglobin 12.2 g/dL (12.0-16.0); Immature Granulocytes Auto 0.05 Thou/mm3 (0.00-0.00); Lymphocytes # (Auto) 1.3 Thou/mm3 (1.0-4.8); Lymphocytes % (Auto) 21 % (10-50); Mean Corpuscular HGB Conc 33.8 g/dl (31.0-37.0); Mean Corpuscular Hemoglobin 32.5 pg (25.0-35.0); Mean Corpuscular Volume 96 fL (80-100); Monocytes # (Auto) 0.8 Thou/mm3 (0.0-0.8); Monocytes % (Auto) 13 % (0-12); Neutrophils # (Auto) 3.9 Thou/mm3 (1.8-7.7); Neutrophils % (Auto) 62 % (37-80); Nucleated Red Blood Cell # 0.00 Thou/mm3 (0.00-0.00); Nucleated Red Blood Cell % 0 /100 WBC (0); Platelet Count 354 Thou/mm3 (140-440); RDW Standard Deviation 47.6 fL (36.4-46.3); Red Blood Count 3.75 Miln/mm3 (4.00-5.20); White Blood Count 6.3 Thou/mm3 (3.6-11.0)
[2025-05-28 06:48] LABS: Alanine Aminotransferase 11 U/L (10-49); Albumin, Serum 3.2 gm/dL (3.4-4.8); Albumin/Globulin Ratio 1.3 (1.2-2.2); Alkaline Phosphatase 110 U/L (46-116); Anion Gap 15 (7-16); Aspartate Amino Transferase 23 U/L (0-34); BUN/Creatinine Ratio 6 Ratio (12-20); Bilirubin,Total 0.2 mg/dL (0.3-1.2); Blood Urea Nitrogen < 5 mg/dL (9-23); Calcium 8.7 mg/dL (8.3-10.6); Calcium (Corrected) 9.3 mg/dL (8.5-10.1); Carbon Dioxide 24.8 mMol/L (20.0-31.0); Chloride 99 mMol/L (98-107); Creatinine (Component) 0.8 mg/dL (0.6-1.3); Estimated Creatinine Clearance 41.0 mL/min (>60); Globulin 2.5 gm/dL (2.3-3.5); Glucose 86 mg/dL (74-106); Magnesium 2.6 mg/dL (1.6-2.6); Osmolality,Calculated 273 (275-295); Phosphorous 2.3 mg/dL (2.4-5.1); Potassium 4.6 mMol/L (3.4-5.1); Sodium 139 mMol/L (136-145); Total Protein 5.7 gm/dL (5.7-8.2); eGFR > 60 See Note
--- NOTE | 2025-05-28 08:14 | XR_ITS ---
Examination: AP chest single view Technique AP portable upright chest single view Date and time: May 28, 2025, 0847 hours, comparison May 27, 2025 INDICATIONS: Shortness of breath today. FINDINGS: Extensive left lung pneumonia Prominent left pleural disease Mild vascular cardiac contour prominent vascular congestion Mild pneumonia right base IMPRESSION: Significant left lung pneumonia. Mild pneumonia right base Significant left pleural fluid again depicted Please see the CT chest report May 23, 2025
[2025-05-28] MEDS: cefTRIAXone/D5w 1gm IV premix 1 GM/50 ML BAG IV (08:17)
[2025-05-28] MEDS: ENOXAPARIN SOD INJ 40 MG/0.4 ML SYRINGE SC (08:17)
[2025-05-28] MEDS: levETIRAcetam INJ 100 MG/ML VIAL 5ML 1500 MG IVP ×2 (08:18→21:33)
[2025-05-28] MEDS: SOD PHOS ADDITIVE 15 MMOL in SODIUM CHLORIDE 0.9% 250 ML 250 ML 62.5 MMOL IV (08:32)
[2025-05-28] MEDS: SODIUM CHLORIDE 0.9% 500 ML 500 ML 999 ML IV (09:17)
--- NOTE | 2025-05-28 09:28 | PD.IDPROG ---
Subjective Subjective Interval history: an atttempt to work her up for tb is noted. hep b may be a false positive or may be spread in intermediate settings vl pending. cocci neg so flucon stopped. Exam Vital Signs Temp Pulse Resp BP Pulse Ox O2 Del Method O2 Flow Rate 98.0 F 57 L 17 93/58 L 98 BiPAP 4 05/28/25 07:56 05/28/25 09:21 05/28/25 07:56 05/28/25 09:21 05/28/25 07:56 05/28/25 07:56 05/27/25 22:51 FiO2 35 05/28/25 06:09 Narrative Exam limited eval today Objective - Internal Medicine Labs 05/28/25 05:54 05/28/25 05:54 Labs: Laboratory Results - last 24 hr 05/25/25 05/28/25 12:45 05:54 WBC 6.3 RBC 3.75 L Hgb 12.2 Hct 36.1 MCV 96 MCH 32.5 MCHC 33.8 RDW Std Deviation 47.6 H Plt Count 354 D Neut % (Auto) 62 Lymph % (Auto) 21 [place] % (Auto) 13 H Eos % (Auto) 1 Baso % (Auto) 2 Neut # (Auto) 3.9 Lymph # (Auto) 1.3 [place] # (Auto) 0.8 Eos # (Auto) 0.1 Baso # (Auto) 0.1 Immature Gran # (Auto) 0.05 H Absolute Nucleated RBC 0.00 Immature Gran % 1 H Nucleated RBC % 0 Sodium 139 Potassium 4.6 D Chloride 99 Carbon Dioxide 24.8 Anion Gap 15 BUN < 5 L Creatinine 0.8 Estim Creat Clear Calc 41.0 L eGFR > 60 BUN/Creatinine Ratio 6 L Glucose 86 Calculated Osmolality 273 L Calcium 8.7 Corrected Calcium 9.3 Phosphorus 2.3 L Magnesium 2.6 Total Bilirubin 0.2 L AST 23 ALT 11 Alkaline Phosphatase 110 Total Protein 5.7 Albumin 3.2 L Globulin 2.5 Albumin/Globulin Ratio 1.3 Coccidioides IgG Ab Negative ABG Interpretation ABG results: 05/23/25 05/26/25 19:00 02:33 ABG pH 7.38 7.43 ABG pCO2 55 H 48 ABG pO2 99 87 ABG HCO3 33 H 32 H ABG O2 Saturation 98 98 ABG Base Excess 6 H 6 H Assessment & Plan A&P Narrative sz. on empiric abx prior staph bacteremia in march no formal S not ed down syndrome hypothyroid hypoxia and pneumonia by imaging empiric rocephin noted. will check in Wednesday PM await hep b vl. if pos. ok to check hep e antigen and afp and ammonia, but will wait for vl first . we do not treat hep be unless the vl is >5,000 copies or if she has esld as it does not change outcomes Time Spent With Patient Time: Total time spent is greater than 50% in coordination of care (as documented) at patient's floor/unit and/or counseling patient:
--- NOTE | 2025-05-28 11:37 | XR_ITS ---
Examination: CT chest, without intravenous contrast. Sagittal and coronal 2-D reconstructions. Exam date and time: May 28, 2025, 6006 hours Comparison May 23, 2025 INDICATIONS: Difficulty breathing, heart failure, large left pleural effusion with left lung atelectasis on CT chest May 23, 2025 CTDI:vol (mGy) 10.8 DLP: (mGycm) 375 Technique: Multiple 3.0 mm axial sections of the chest to been obtained. Bone and lung density settings are obtained. Sagittal and coronal 2-D reconstructions have been obtained. Low dose protocols were performed. One or more of the following dose reduction techniques were used; automated exposure control, adjustment of the mA and/or KV according to patient size, use of iterative reconstruction technique. Findings: No thoracic aorta and aneurysmal dilatation Pulmonary artery segment not enlarged. Extensive pneumonia left lung Calcified granuloma right upper lobe Pericardial effusion measuring up to 11 mm Mild enlargement cardiac contour Moderate to large left pleural effusion Mild to moderate right pleural effusion No visualized liver or splenic lesion Fluid distended colon Again noted severe compression fracture L1 IMPRESSION: Extensive pneumonia left lung Moderate to large left pleural effusion Mild to moderate right pleural effusion
--- NOTE | 2025-05-28 12:55 | ESPR_ITS ---
<Statement entered by Catina Schwartz MD - 05/28/25 18:27> I have reviewed the note and agree with the resident's assessment & plan with exceptions as below. I have personally reviewed labs, imaging, home meds/prior records, examined the patient, formulated and discussed management plan with the IM team. Patient examined at bedside today. No acute overnight events. Speech therapy passed patient for dysphagia diet at this time, will discontinue blood glucose Accu-Cheks at this time. Pulmonology on consult, appreciate recommendations. May get thoracentesis for this patient, however defer to pulmonary at this time. Will hold diuresis dose today as patient's blood pressure is a bit low and will give 500 cc x 1. Continue strict ORQUIDEA's, repeat hematology and chemistry in AM. Patient will benefit from bronchoscopy, however will need to determine if this will be done on this visit or within 4 to 6 weeks. Chest x-ray did show improvement in expansion of left lung, however there still seems to be continued pleural effusion and fluid. Continue with BiPAP at bedtime, Mucomyst and scheduled breathing treatments. Will add midodrine at this time 5 mg 3 times daily with holding parameters. Catina Schwartz, PGY-2 Internal Medicine Documentation for date of: 05/28/25 Subjective Subjective Interval history: No acute events overnight. Patient's tele was reviewed and was unremarkable this AM. Patient seen and examined at bedside. Vitals and labs reviewed. Patient was resting in bed on 4L NC saturating well this morning. Patient's blood pressure was soft at 93/58 and was given a 500 ml IV bolus with improvement to 122/65. Patient passed swallow evaluation today. Ambulation with assistance and Up to chair with assistance was ordered for her. Exam Vital Signs Temp Pulse Resp BP Pulse Ox O2 Del Method O2 Flow Rate 97.3 F 89 18 122/65 96 Nasal Cannula 2 05/28/25 12:00 05/28/25 12:00 05/28/25 12:00 05/28/25 12:00 05/28/25 12:00 05/28/25 12:00 05/28/25 12:00 FiO2 35 05/28/25 06:09 Narrative Exam Gen: Down syndrome. Does not verbally respond, eyes open spontaneously and track. HEENT: NCAT, PERRLA, EOMI, MMM, anicteric conjunctivae. Appears to have fungal infection along neck/back, much improving, now it is light pink with much less erythema. CVS: normal S1 and S2. RRR. No M/R/G. Resp: 4 L NC, coarse breath sounds Abd: soft, non-tender, non-distended. BS+ in all 4 quadrants. MSK: Neck/inner thigh erythematous rash. Right shoulder bruise improved, due to heparin injection according to caregiver. Neuro: Does withdraw from pain. Responds to name. Does not follow commands. Objective Labs 05/31/25 09:47 05/31/25 11:10 Labs: Laboratory Results - last 24 hr 05/25/25 05/28/25 12:45 05:54 WBC 6.3 RBC 3.75 L Hgb 12.2 Hct 36.1 MCV 96 MCH 32.5 MCHC 33.8 RDW Std Deviation 47.6 H Plt Count 354 D Neut % (Auto) 62 Lymph % (Auto) 21 [place] % (Auto) 13 H Eos % (Auto) 1 Baso % (Auto) 2 Neut # (Auto) 3.9 Lymph # (Auto) 1.3 [place] # (Auto) 0.8 Eos # (Auto) 0.1 Baso # (Auto) 0.1 Immature Gran # (Auto) 0.05 H Absolute Nucleated RBC 0.00 Immature Gran % 1 H Nucleated RBC % 0 Sodium 139 Potassium 4.6 D Chloride 99 Carbon Dioxide 24.8 Anion Gap 15 BUN < 5 L Creatinine 0.8 Estim Creat Clear Calc 41.0 L eGFR > 60 BUN/Creatinine Ratio 6 L Glucose 86 Calculated Osmolality 273 L Calcium 8.7 Corrected Calcium 9.3 Phosphorus 2.3 L Magnesium 2.6 Total Bilirubin 0.2 L AST 23 ALT 11 Alkaline Phosphatase 110 Total Protein 5.7 Albumin 3.2 L Globulin 2.5 Albumin/Globulin Ratio 1.3 Coccidioides IgG Ab Negative ABG Interpretation ABG results: 05/23/25 05/26/25 19:00 02:33 ABG pH 7.38 7.43 ABG pCO2 55 H 48 ABG pO2 99 87 ABG HCO3 33 H 32 H ABG O2 Saturation 98 98 ABG Base Excess 6 H 6 H Quality Measures Quality Measures VTE prophylaxis Advance care planning discussed with:: patient and other Assessment & Plan Assessment Current Active Medications: Generic Name Dose Route Start Last Admin Trade Name Freq PRN Reason Stop Dose Admin Acetaminophen 650 mg 05/23/25 20:44 Acetaminophen Supp 650 Mg Supp VA 06/22/25 20:43 Q6HR PRN Fever > 100.4 or pain Acetylcysteine 3 ml 05/26/25 15:00 05/28/25 06:07 Acetylcysteine Rt [place] 10% 4 Ml Nebu INH 06/25/25 14:59 3 ml Q8HRRT JERRY Administration Atropine Sulfate 1 mg 05/26/25 08:11 Atropine Sulf Inj 0.1 Mg/Ml Syr 10 Ml IVP 06/25/25 02:08 Q10MIN PRN bradycardia Xcopri 100 Mg Tablet 0 ea 05/24/25 21:00 05/27/25 21:04 PO 06/23/25 20:59 Not Given HS JERRY Dextrose 50 ml 05/26/25 18:07 Dextrose 50%-Water Inj 50 Ml Syringe IV 06/25/25 18:06 Q15MIN PRN BG <50 OR BG <70 & pt unresponsive Dextrose 25 ml 05/26/25 18:07 Dextrose 50%-Water Inj 50 Ml Syringe IV 06/25/25 18:06 Q15MIN PRN BG 50-70 responsive npo pt Enoxaparin Sodium 40 mg 05/24/25 09:00 05/28/25 08:17 Enoxaparin Sod Inj 40 Mg/0.4 Ml Syringe SC 06/07/25 08:59 40 mg QDAY JERRY Administration Furosemide 20 mg 05/27/25 09:00 05/28/25 09:21 Furosemide Inj 10 Mg/Ml Vial 2 Ml IVP 06/26/25 08:59 Not Given QDAY JERRY Glucagon 1 mg 05/26/25 18:07 Glucagon Inj 1 Mg Vial IM Q15MIN PRN BG <70, and no IV access Ceftriaxone Sodium/Dextrose 1 gm in 50 mls @ 100 mls/hr 05/25/25 10:58 05/28/25 08:17 Rocephin/D5w 1gm Iv Premix IV 06/01/25 10:57 100 mls/hr QDAY JERRY Administration Levalbuterol HCl 1.25 mg 05/26/25 15:00 05/28/25 06:08 Levalbuterol Rt 1.25 Mg/0.5 Ml Nebu INH 06/25/25 14:59 1.25 mg Q8HRRT JERRY Administration Levetiracetam 1,500 mg 05/24/25 21:00 05/28/25 08:18 Levetiracetam Inj 100 Mg/Ml Vial 5ml IVP 06/23/25 20:59 1,500 mg Q12HR JERRY Administration Levothyroxine Sodium 75 mcg 05/29/25 06:00 Levothyroxine Sodium 25 Mcg Tablet PO 06/28/25 05:59 ACBR JERRY Midodrine 5 mg 05/28/25 14:00 Midodrine 5 Mg Tablet PO 06/27/25 13:59 TID JERRY Nystatin 0 gm 05/24/25 14:00 05/28/25 05:16 Nystatin Pwd 15 Gm Btl TOP 06/23/25 13:59 1 applicatio TID JERRY Administration Ondansetron HCl 4 mg 05/23/25 20:44 Ondansetron Inj 2 Mg/Ml Inj 2 Ml IVP 06/22/25 20:43 Q6H PRN NAUSEA OR VOMITING Protocol Sodium Chloride 3 ml 05/26/25 09:41 05/26/25 22:23 Sodium Chloride Rt [place] 0.9% 3 Ml Nebu INH 06/25/25 09:40 3 ml PRN PRN Administration SOLN Plan 70 F with PMHx significant for Down syndrome, seizures, asthma, hypothyroidism presenting to the ED obtunded in post-ictal state, admitted for breakthrough seizures and significant pleural effusion. Following up CT Chest for possible mass. #Mucous plug? #Atelectasis #Pleural Effusions Patient is saturating and breathing much better after BIPAP, possibly due to clearing mucous plug or some bronchogenic mass. FUP CXR showed partial left lung re-expansion, was total opacification on prior CXR from earlier that night. Bilateral pleural effuisions found on CTAP, too minimal to drain per IR. 05/28: CXR showed Significant left lung pneumonia; Mild pneumonia right base; Significant left pleural fluid again depicted Plan: -Ordered CT Chest w/o contrast for possible mass. -Continue BIPAP. Continuous with 10min breaks. 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 Atropine, LR and albumin given. 05/28: Patient passed swallow Eval, will restart midodrine Plan: -On tele -Atropine IVP Q10min PRN for symptomatic bradycardia -Midodrine 5mg PO TID -Cards consulted, recs appreciated #Hypoglycemia-resolved Patient passed swallow eval 05/28. Has low blood sugars over night Plan -D50 PRN #Breakthrough seizures #Seizure disorder Patient has known history of seizure disorder. Per caregiver, patient 2 witnessed tonic-clonic seizures in 24 hours prior to admission. Patient does not appear to have fully recovered back to baseline, per chart review patient at baseline is able to answer simple yes/no questions. Currently patient eyes open spontaneously, tracks, but does not verbally respond, does not follow commands. Patient follows with Dr. Mendoza outpatient. Patient received 1 g Keppra and 4 mg Versed in ED. - Dr. Mendoza consulted, appreciate recommendations - Keppra 1500 mg IV q12hr - Xcorpi 100 mg po qd will be delivered and given from personal care aide (non- formulary). - EEG: Abnormal w/ diffuse slowing with questionable spike and wave activity noted in bilateral, frontal, central, and temporal areas consistent with seizure disorder. - Seizure precautions - Telemonitoring #PNA with significant pleural effusion #Asthma Patient was discharged from [facility] 05/20 after being treated for pneumonia. Caregiver reports patient is continue to have difficulty breathing. Chest CTA showed large left pleural effusion and moderate right pleural effusion. Patient saturating well on 2 L via nasal cannula. Significant rhonchi on exam. Unclear if pneumonia with failure of treatment or new HAP. 05/25: MRSA nares negative -> discontinued Vancomycin; Cocci Negative; Thoracentesis Not done, minimal bilateral pleural effusions 05/28: Blood cultures Negative, Cocci negative stopped fluconazole - Ceftriaxone 1g in 50 mL IV QD - O2 as needed maintain sats 92% - Lasix 20mg IV q day - Suctioning as needed - Chest PT as needed - DuoNebs as needed - Mentally Retarded Teacher Dr. Zamorano consulted: recommends continuing NGT #HFpEF Echo done 05/16/2025 showing grade I diastolic dysfunction. Estimated EF at 55- 60%, estimated RVSP, 42 mmHg. Patient has some signs of fluid overload. - Strict I/O's - Weights qd - Fluid Restriction 1500 ml - Cardiology consulted #Fungal infection Patient has large erythematous rash with small whitish plaques along base of neck and inner thighs, appears to be fungal rash. Improving 05/26, much less erythema, perimeter is much smaller, still circumfential around neck and in folds of skin. - Topical nystatin - Wound care #Hypothyroidism Patient history as stated. Patient passed swallow eval, will start home PO Levothyroxine. 05/27: TSH 4.32, FT4 0.79 -Restarted home Levothyroxine 75 mcg PO ACBR DVT prophylaxis: Lovenox GI prophylaxis: None Diet: Passed swallow - On Dysphagia 1 Lines: Peripheral IV Code status: Full code Patient plan of care was discussed with the attending physician, Dr. Tao & senior resident Dr. Lana Coleman MD PGY-1 Attending Provider Attestation/Addendum I have discussed and was present for the essential components of the history, physical examination, diagnosis, and treatment plan with the resident. I agree with the patient's care as documented by the resident and amended herein by me. Maged Tao DO. Although this document has been carefully reviewed, there may still be some phonetic and other typographical errors. These errors are purely grammatical due to imperfections in the software program and should not be construed in any way to compromise the substance of the patient's medical care during this visit.
--- NOTE | 2025-05-28 15:05 | PC.SS ---
rounding note: Pending ID rec's. Patient improving. Possible d/c Wednesday back to [facility]
[2025-05-28] MEDS: MIDODRINE 5 MG TABLET PO (17:29)
--- NOTE | 2025-05-28 19:55 | PC.PT ---
PT eval only. Patient unable to follow commands. Skilled PT not indicated at this time.
--- NOTE | 2025-05-28 20:50 | PD.NEUROPROG ---
Documentation for date of: 05/28/25 Subjective Subjective Interval history: Patient was seen in telemetry today. No seizures/new symptoms reported overnight Exam - Neurology Vital Signs Temp Pulse Resp BP Pulse Ox O2 Del Method O2 Flow Rate 97.8 F 78 18 101/63 94 L Nasal Cannula 2 05/28/25 16:35 05/28/25 17:29 05/28/25 16:35 05/28/25 17:29 05/28/25 16:35 05/28/25 16:35 05/28/25 16:35 FiO2 35 05/28/25 06:09 Narrative Exam General Appearance: Alert & Oriented X0, well-nourished who is lying in bed in no acute distress, saturating on 2 liters at 96%, no increased work of breathing noted HEENT: Skull symmetrical and atraumatic. Conjunctivae pin and moist. Pupils equal, round, reactive to light and accommodation (PERRL). External ear without lesion or discharge. Straight, nares patient, mucosa pink, no discharge. No thyroid nodule appreciated. No cervical lymphadenopathy. Cardio: Normal Rate and Rhythm with S1 and S2 heart sounds. No murmurs or extra heart sounds auscultated. No bruits on carotid auscultation. No peripheral edema or cyanosis. Lungs: Symmetric with good expansion. Chest and back non-tender. Decreased breath sounds noted wtih rhonchi. Abdomen: Non-tender, Non-distended, Normal Reactive Bowel Sounds Neuro: Alert, noncooperative, not oriented to person place or time, non-verbal as at baseline, withdrawals to painful stimuli, contracted in all 4 extremities Limited exam Objective Labs 05/28/25 05:54 05/29/25 05:14 Labs: Laboratory Results - last 24 hr 05/28/25 05:54 WBC 6.3 RBC 3.75 L Hgb 12.2 Hct 36.1 MCV 96 MCH 32.5 MCHC 33.8 RDW Std Deviation 47.6 H Plt Count 354 D Neut % (Auto) 62 Lymph % (Auto) 21 [place] % (Auto) 13 H Eos % (Auto) 1 Baso % (Auto) 2 Neut # (Auto) 3.9 Lymph # (Auto) 1.3 [place] # (Auto) 0.8 Eos # (Auto) 0.1 Baso # (Auto) 0.1 Immature Gran # (Auto) 0.05 H Absolute Nucleated RBC 0.00 Immature Gran % 1 H Nucleated RBC % 0 Sodium 139 Potassium 4.6 D Chloride 99 Carbon Dioxide 24.8 Anion Gap 15 BUN < 5 L Creatinine 0.8 Estim Creat Clear Calc 41.0 L eGFR > 60 BUN/Creatinine Ratio 6 L Glucose 86 Calculated Osmolality 273 L Calcium 8.7 Corrected Calcium 9.3 Phosphorus 2.3 L Magnesium 2.6 Total Bilirubin 0.2 L AST 23 ALT 11 Alkaline Phosphatase 110 Total Protein 5.7 Albumin 3.2 L Globulin 2.5 Albumin/Globulin Ratio 1.3 ABG Interpretation ABG results: 05/23/25 05/26/25 19:00 02:33 ABG pH 7.38 7.43 ABG pCO2 55 H 48 ABG pO2 99 87 ABG HCO3 33 H 32 H ABG O2 Saturation 98 98 ABG Base Excess 6 H 6 H Assessment & Plan Assessment and plan (1) Seizure: Status: Acute (2) Pneumonia: Status: Acute Additional Assessment & Plan Additional Plan: (1) Seizure: Status: Acute Assessment and plan: Continue with Keppra and Xcopri Follow seizure precautions and continue to monitor for any breakthrough seizures (2) Pneumonia: Status: Acute Assessment and plan: Continue with the current IV antibiotics Continue to monitor for respiratory distress from hypoxia
--- NOTE | 2025-05-28 22:53 | PD.RESPRO ---
Documentation for date of: 05/28/25 Subjective Subjective Interval history: Patient was seen sitting in her bed comfortably, and examined. No acute events took place overnight. CT of the chest was positive for extensive pneumonia left lung, pericardial effusion measuring up to 11mm, mild enlargement of the cardiac contour, moderate to large left pleural effusion, and mild to moderate right pleural effusion. Primary team noted soft blood pressures earlier in the morning and stopped diuresing the patient. Patient was also given a bolus of IV 0.5 L, and BP stabilized in the 120s/60s.creatinine HR 57, T97.2, O2 saturation 95% on 2 L NC O2. WBC 6.3 hemoglobin 12.2 BUN less than 5 0.8 glucose 86 magnesium 2.6 and potassium 4.6. Will continue to follow the pt. Exam Vital Signs Temp Pulse Resp BP Pulse Ox O2 Del Method O2 Flow Rate 97.2 F 84 18 130/67 96 Nasal Cannula 2 05/28/25 20:00 05/28/25 21:32 05/28/25 20:00 05/28/25 21:32 05/28/25 20:00 05/28/25 20:00 05/28/25 20:00 FiO2 35 05/28/25 06:09 Narrative Exam General: Currently seen on BiPAP, patient is sleepy but arousable. Skin: Intact, no cyanosis or edema noted. Noted erythematous patch around patient's neck, possibly fungal infection. HEENT: Atraumatic/normocephalic, LONNY, neck supple Heart: RRR, S1 and S2 without clicks or murmurs Lungs: Noted crackles bilaterally on auscultation, left-sided crackles in middle and basal zones. Currently on BiPAP. Abdomen: Soft, nontender. Bowel sounds present . Vascular: Peripheral pulses palpable Neuro: No focal neurological deficits noted. Unable to completely assess her mental function due to mental status. Objective Labs 06/01/25 07:10 06/01/25 05:18 Labs: Laboratory Results - last 24 hr 05/28/25 05:54 WBC 6.3 RBC 3.75 L Hgb 12.2 Hct 36.1 MCV 96 MCH 32.5 MCHC 33.8 RDW Std Deviation 47.6 H Plt Count 354 D Neut % (Auto) 62 Lymph % (Auto) 21 [place] % (Auto) 13 H Eos % (Auto) 1 Baso % (Auto) 2 Neut # (Auto) 3.9 Lymph # (Auto) 1.3 [place] # (Auto) 0.8 Eos # (Auto) 0.1 Baso # (Auto) 0.1 Immature Gran # (Auto) 0.05 H Absolute Nucleated RBC 0.00 Immature Gran % 1 H Nucleated RBC % 0 Sodium 139 Potassium 4.6 D Chloride 99 Carbon Dioxide 24.8 Anion Gap 15 BUN < 5 L Creatinine 0.8 Estim Creat Clear Calc 41.0 L eGFR > 60 BUN/Creatinine Ratio 6 L Glucose 86 Calculated Osmolality 273 L Calcium 8.7 Corrected Calcium 9.3 Phosphorus 2.3 L Magnesium 2.6 Total Bilirubin 0.2 L AST 23 ALT 11 Alkaline Phosphatase 110 Total Protein 5.7 Albumin 3.2 L Globulin 2.5 Albumin/Globulin Ratio 1.3 ABG Interpretation ABG results: 05/23/25 05/26/25 19:00 02:33 ABG pH 7.38 7.43 ABG pCO2 55 H 48 ABG pO2 99 87 ABG HCO3 33 H 32 H ABG O2 Saturation 98 98 ABG Base Excess 6 H 6 H Quality Measures Quality Measures VTE prophylaxis Advance care planning discussed with:: other Assessment & Plan Assessment Current Active Medications: Generic Name Dose Route Start Last Admin Trade Name Freq PRN Reason Stop Dose Admin Acetaminophen 650 mg 05/23/25 20:44 Acetaminophen Supp 650 Mg Supp HI 06/22/25 20:43 Q6HR PRN Fever > 100.4 or pain Acetylcysteine 3 ml 05/26/25 15:00 05/28/25 14:27 Acetylcysteine Rt [place] 10% 4 Ml Nebu INH 06/25/25 14:59 3 ml Q8HRRT JERRY Administration Atropine Sulfate 1 mg 05/26/25 08:11 Atropine Sulf Inj 0.1 Mg/Ml Syr 10 Ml IVP 06/25/25 02:08 Q10MIN PRN bradycardia Xcopri 100 Mg Tablet 0 ea 05/24/25 21:00 05/27/25 21:04 PO 06/23/25 20:59 Not Given HS JERRY Dextrose 50 ml 05/26/25 18:07 Dextrose 50%-Water Inj 50 Ml Syringe IV 06/25/25 18:06 Q15MIN PRN BG <50 OR BG <70 & pt unresponsive Dextrose 25 ml 05/26/25 18:07 Dextrose 50%-Water Inj 50 Ml Syringe IV 06/25/25 18:06 Q15MIN PRN BG 50-70 responsive npo pt Enoxaparin Sodium 40 mg 05/24/25 09:00 05/28/25 08:17 Enoxaparin Sod Inj 40 Mg/0.4 Ml Syringe SC 06/07/25 08:59 40 mg QDAY JERRY Administration Furosemide 20 mg 05/27/25 09:00 05/28/25 09:21 Furosemide Inj 10 Mg/Ml Vial 2 Ml IVP 06/26/25 08:59 Not Given QDAY JERRY Glucagon 1 mg 05/26/25 18:07 Glucagon Inj 1 Mg Vial IM Q15MIN PRN BG <70, and no IV access Ceftriaxone Sodium/Dextrose 1 gm in 50 mls @ 100 mls/hr 05/25/25 10:58 05/28/25 08:17 Rocephin/D5w 1gm Iv Premix IV 06/01/25 10:57 100 mls/hr QDAY JERRY Administration Levalbuterol HCl 1.25 mg 05/26/25 15:00 05/28/25 14:27 Levalbuterol Rt 1.25 Mg/0.5 Ml Nebu INH 06/25/25 14:59 1.25 mg Q8HRRT JERRY Administration Levetiracetam 1,500 mg 05/24/25 21:00 05/28/25 21:33 Levetiracetam Inj 100 Mg/Ml Vial 5ml IVP 06/23/25 20:59 1,500 mg Q12HR JERRY Administration Levothyroxine Sodium 75 mcg 05/29/25 06:00 Levothyroxine Sodium 25 Mcg Tablet PO 06/28/25 05:59 ACBR JERRY Midodrine 5 mg 05/28/25 14:00 05/28/25 21:31 Midodrine 5 Mg Tablet PO 06/27/25 13:59 Not Given TID JERRY Nystatin 0 gm 05/24/25 14:00 05/28/25 21:34 Nystatin Pwd 15 Gm Btl TOP 06/23/25 13:59 1 applicatio TID JERRY Administration Ondansetron HCl 4 mg 05/23/25 20:44 Ondansetron Inj 2 Mg/Ml Inj 2 Ml IVP 06/22/25 20:43 Q6H PRN NAUSEA OR VOMITING Protocol Sodium Chloride 3 ml 05/26/25 09:41 05/26/25 22:23 Sodium Chloride Rt Shannon 0.9% 3 Ml Nebu INH 06/25/25 09:40 3 ml PRN PRN Administration SOLN Plan Lillie Jensen is 70F with MHx Down's syndrome, HFpEF, seizure disorder, asthma, hypothyroidism who presented to the ED on 05/23/2025 having had two seizures back to back without a return to baseline during the previous 24h, difficulty breathing, and hypoxemia. She was admitted for inpatient management of her breakthrough seizures and acute hypoxic respiratory failure likely secondary to pneumonia and bilateral large pleural effusions Problems: 1. Bradycardia 2. Bilateral pleural effusions 3. Pneumonia 4. HFpEF 5. Hypothyroidism 6. Acute hypoxic respiratory failure 7. Hypokalemia 8. Hypomagnesemia 9. Seizures 10. History of Down syndrome 11. History of fast Patient was admitted following breakthrough seizures, and altered mental status following recurrent seizures, also noted to have breathing difficulty, admitted with acute hypoxic respiratory failure initial imaging showed bilateral large pleural effusions, CTA chest showed large Lt sided and moderate Rt sided pleural effusion. Mild heart failure and was negative for PE. patient was diuresed initially which led to improvement in pleural effusion, still has large left-sided pleural effusion, also noted to have pneumonia, infectious disease consultation to Dr Meier is placed, ID following. Started on ceftriaxone and fluconazole. Pending coccidiomycosis serology. Prior echocardiogram shows normal LV size and function normal EF, concern for diastolic dysfunction, bilateral pleural effusions possibly due to diastolic heart failure, agree with diuresing, as noted improvement following diuresis. Possible differentials include parapneumonic effusion, thoracentesis was ordered but unable to find enough fluid for thoracentesis by IR. Of note patient had recent admission for pneumonia and ICU stay for hypotension. Rapid response was called on 05/26/2025 at 1:27 AM for hypotension and bradycardia, noted heart rate 33 and MAP 47, received IV fluids 500 mL LR x 2, which improved blood pressure, EKG at the time showed sinus bradycardia, also noted T wave inversions which are consistent with prior EKG. Transient hypotension due to decreased intravascular volume which improved after fluid boluses, bradycardia likely occurred during sleep. Echo 05/16: Normal LV size and function. There is grade I diastolic dysfunction. Estimated EF at 55-60%. The RV is normal in size and systolic function. The estimated RVSP, 42 mmHg. RAP 5. Trace TR. Seizure activity is being managed by neurologist Dr. Mendoza. Pt is on Keppra IV 1.5g BID and XCorpi PO 100mg QD at home. Pt has lost 7.6L cumulative I&O since her admission 05/23. CT of the chest (05/28) was positive for extensive pneumonia left lung, pericardial effusion measuring up to 11mm, mild enlargement of the cardiac contour, moderate to large left pleural effusion, and mild to moderate right pleural effusion. Recommendations: -Transient bradycardia occurring during sleep in the setting of acute hypoxic respiratory failure. Overnight telemetry reviewed. consider proceeding with ACLS bradycardia algorithm if patient has symptomatic bradycardia again. -Pt is on midodrine PO 5mg as needed, consider adding holding parameters for midodrine as it can cause bradycardia. -Fluid restriction 1.5L daily with strict I&O -keep K+ >4 and Mg >2 at all times Thank you for cardiology consultation. We appreciate the opportunity to participate in this patient's care. Will continue to follow-up on this patient This case was discussed with my attending physician, Dr. Aguiar, md senior research scientist. Jace Galicia, PGY I Attending Provider Attestation/Addendum I have personally seen and examined the patient separately on the above date of service and discussed the plan of care with the resident. I reviewed the resident Dr. Mccormick consultation progress note and agree with the resident findings and plan in the note above and have also edited the documentation to reflect my findings and plan. Adonis Aguiar M.D. Interventional Cardiology
[2025-05-29] VITALS (16 sets, daily range): BP systolic 90–123; BP diastolic 53–77; PULSE 60–95; RESP 14–19; TEMP 35.9–36.3; O2SAT 94–100; BMI 21.8
--- NOTE | 2025-05-29 01:56 | PC.RT ---
at 0015 RN called spo2 dropping went to assess pt on 40% on bipap spo2 was 93% RR14, hr 66 on 09/07 RR14 no distress noted auscultated clear diminish bs. no changes
[2025-05-29] MEDS: MIDODRINE 5 MG TABLET PO ×3 (05:19→21:55)
[2025-05-29] MEDS: NYSTATIN PWD 15 GM BTL TOP ×3 (05:20→21:12)
[2025-05-29] MEDS: LEVOTHYROXINE SODIUM 25 MCG TABLET 75 MCG PO (05:20)
[2025-05-29 06:30] LABS: Eosinophils % (Auto) 1 % (0-10); Mean Corpuscular Volume 97 fL (80-100); Nucleated Red Blood Cell # 0.00 Thou/mm3 (0.00-0.00); Nucleated Red Blood Cell % 0 /100 WBC (0)
[2025-05-29 06:41] LABS: Alanine Aminotransferase 13 U/L (10-49); Albumin, Serum 3.4 gm/dL (3.4-4.8); Albumin/Globulin Ratio 1.5 (1.2-2.2); Alkaline Phosphatase 111 U/L (46-116); Anion Gap 10 (7-16); Aspartate Amino Transferase 31 U/L (0-34); BUN/Creatinine Ratio 6 Ratio (12-20); Bilirubin,Total 0.3 mg/dL (0.3-1.2); Blood Urea Nitrogen 5 mg/dL (9-23); Calcium 8.8 mg/dL (8.3-10.6); Calcium (Corrected) 9.3 mg/dL (8.5-10.1); Carbon Dioxide 27.0 mMol/L (20.0-31.0); Chloride 104 mMol/L (98-107); Creatinine (Component) 0.9 mg/dL (0.6-1.3); Estimated Creatinine Clearance 36.5 mL/min (>60); Free T4 (Free Thyroxine) 0.88 ng/dL (0.89-1.76); Globulin 2.3 gm/dL (2.3-3.5); Glucose 101 mg/dL (74-106); Magnesium 2.0 mg/dL (1.6-2.6); Osmolality,Calculated 278 (275-295); Phosphorous 2.8 mg/dL (2.4-5.1); Potassium 4.0 mMol/L (3.4-5.1); Sodium 141 mMol/L (136-145); Total Protein 5.7 gm/dL (5.7-8.2); eGFR > 60 See Note
[2025-05-29] MEDS: LEVALBUTEROL RT 1.25 MG/0.5 ML NEBU INH ×3 (07:01→22:52)
[2025-05-29 08:54] LABS: Basophils # (Auto) 0.1 Thou/mm3 (0.0-0.2); Basophils % (Auto) 2 % (0-2.5); Eosinophils # (Auto) 0.1 Thou/mm3 (0.0-0.5); Hematocrit 37.2 % (36.0-46.0); Hemoglobin 12.3 g/dL (12.0-16.0); Immature Granulocytes Auto 0.05 Thou/mm3 (0.00-0.00); Lymphocytes # (Auto) 1.8 Thou/mm3 (1.0-4.8); Lymphocytes % (Auto) 28 % (10-50); Mean Corpuscular HGB Conc 33.1 g/dl (31.0-37.0); Mean Corpuscular Hemoglobin 31.9 pg (25.0-35.0); Monocytes # (Auto) 1.2 Thou/mm3 (0.0-0.8); Monocytes % (Auto) 18 % (0-12); Neutrophils # (Auto) 3.2 Thou/mm3 (1.8-7.7); Neutrophils % (Auto) 50 % (37-80); RDW Standard Deviation 49.1 fL (36.4-46.3); Red Blood Count 3.85 Miln/mm3 (4.00-5.20); White Blood Count 6.4 Thou/mm3 (3.6-11.0)
[2025-05-29 08:59] LABS: Platelet Count 347 Thou/mm3 (140-440)
[2025-05-29] MEDS: cefTRIAXone/D5w 1gm IV premix 1 GM/50 ML BAG IV (09:39)
[2025-05-29] MEDS: ENOXAPARIN SOD INJ 40 MG/0.4 ML SYRINGE SC (09:40)
[2025-05-29] MEDS: FUROSEMIDE INJ 10 MG/ML VIAL 2 ML 20 MG IVP (09:40)
[2025-05-29] MEDS: levETIRAcetam INJ 100 MG/ML VIAL 5ML 1500 MG IVP ×2 (09:41→20:44)
--- NOTE | 2025-05-29 13:57 | PC.NURSE ---
Patient's cargiver is at bedside, she has concerns over discharge. Dr. Basurto at bedside, he informed patient that discharge will be on hold pending Dr. Mendoza's recommendations.
[2025-05-29] MEDS: ACETYLCYSTEINE RT SOL 10% 4 ML NEBU 3 ML INH ×2 (14:12→22:52)
--- NOTE | 2025-05-29 15:31 | ESPR_ITS ---
<Statement entered by Catina Schwartz MD - 05/29/25 19:58> I have reviewed the note and agree with the resident's assessment & plan with exceptions as below. I have personally reviewed labs, imaging, home meds/prior records, examined the patient, formulated and discussed management plan with the IM team. Patient examined at bedside today. No acute overnight events. Patient continue BiPAP at night. Patient will need BiPAP set up outpatient. Will continue with diuresis at this time as patient is currently 8 L negative. Pulmonology on consult, appreciate recommendations. Repeat hematology and chemistry in AM. Anticipate discharge within the next 24 to 48 hours. Patient would likely benefit from bronchoscopy done outpatient for evaluation of possible mass or mucous plugging. Catina Schwartz, PGY-2 Internal Medicine Documentation for date of: 05/29/25 Subjective Subjective Interval history: No acute events overnight. Patient seen and examined at bedside. Vitals and labs reviewed. Patient is currently on 3L NC saturating well. Development Educator will coordinate with [facility] to order bipap or trilogy unit. Exam Vital Signs Temp Pulse Resp BP Pulse Ox O2 Del Method O2 Flow Rate 96.9 F 85 18 90/53 L 94 L Nasal Cannula 4 05/29/25 12:00 05/29/25 14:37 05/29/25 14:14 05/29/25 14:37 05/29/25 14:14 05/29/25 12:00 05/29/25 14:14 FiO2 35 05/29/25 01:45 Narrative Exam Gen: Down syndrome. Does not verbally respond, eyes open spontaneously and track. HEENT: NCAT, PERRLA, EOMI, MMM, anicteric conjunctivae. Appears to have fungal infection along neck/back, much improving, now it is light pink with much less erythema. CVS: normal S1 and S2. RRR. No M/R/G. Resp: 3L NC, coarse breath sounds Abd: soft, non-tender, non-distended. BS+ in all 4 quadrants. MSK: Neck/inner thigh erythematous rash. Right shoulder bruise improved, due to heparin injection according to caregiver. Neuro: Does withdraw from pain. Responds to name. Does not follow commands. Objective Labs 05/30/25 05:26 05/30/25 05:26 Labs: Laboratory Results - last 24 hr 05/29/25 05:14 WBC 6.4 RBC 3.85 L Hgb 12.3 Hct 37.2 MCV 97 MCH 31.9 MCHC 33.1 RDW Std Deviation 49.1 H Plt Count 347 Neut % (Auto) 50 Lymph % (Auto) 28 [place] % (Auto) 18 H Eos % (Auto) 1 Baso % (Auto) 2 Neut # (Auto) 3.2 Lymph # (Auto) 1.8 [place] # (Auto) 1.2 H Eos # (Auto) 0.1 Baso # (Auto) 0.1 Immature Gran # (Auto) 0.05 H Absolute Nucleated RBC 0.00 Immature Gran % 1 H Nucleated RBC % 0 Sodium 141 Potassium 4.0 D Chloride 104 Carbon Dioxide 27.0 Anion Gap 10 BUN 5 L Creatinine 0.9 Estim Creat Clear Calc 36.5 L eGFR > 60 BUN/Creatinine Ratio 6 L Glucose 101 Calculated Osmolality 278 Calcium 8.8 Corrected Calcium 9.3 Phosphorus 2.8 Magnesium 2.0 Total Bilirubin 0.3 AST 31 ALT 13 Alkaline Phosphatase 111 Total Protein 5.7 Albumin 3.4 Globulin 2.3 Albumin/Globulin Ratio 1.5 Free T4 0.88 L ABG Interpretation ABG results: 05/23/25 05/26/25 19:00 02:33 ABG pH 7.38 7.43 ABG pCO2 55 H 48 ABG pO2 99 87 ABG HCO3 33 H 32 H ABG O2 Saturation 98 98 ABG Base Excess 6 H 6 H Quality Measures Quality Measures VTE prophylaxis Advance care planning discussed with:: patient and other Assessment & Plan Assessment Current Active Medications: Generic Name Dose Route Start Last Admin Trade Name [place] PRN Reason Stop Dose Admin Acetaminophen 650 mg 05/23/25 20:44 Acetaminophen Supp 650 Mg Supp DE 06/22/25 20:43 Q6HR PRN Fever > 100.4 or pain Acetylcysteine 3 ml 05/26/25 15:00 05/29/25 14:12 Acetylcysteine Rt [place] 10% 4 Ml Nebu INH 06/25/25 14:59 3 ml Q8HRRT JERRY Administration Atropine Sulfate 1 mg 05/26/25 08:11 Atropine Sulf Inj 0.1 Mg/Ml Syr 10 Ml IVP 06/25/25 02:08 Q10MIN PRN bradycardia Xcopri 100 Mg Tablet 0 ea 05/24/25 21:00 05/29/25 00:44 PO 06/23/25 20:59 Not Given HS JERRY Dextrose 50 ml 05/26/25 18:07 Dextrose 50%-Water Inj 50 Ml Syringe IV 06/25/25 18:06 Q15MIN PRN BG <50 OR BG <70 & pt unresponsive Dextrose 25 ml 05/26/25 18:07 Dextrose 50%-Water Inj 50 Ml Syringe IV 06/25/25 18:06 Q15MIN PRN BG 50-70 responsive npo pt Enoxaparin Sodium 40 mg 05/24/25 09:00 05/29/25 09:40 Enoxaparin Sod Inj 40 Mg/0.4 Ml Syringe SC 06/07/25 08:59 40 mg QDAY JERRY Administration Furosemide 20 mg 05/27/25 09:00 05/29/25 09:40 Furosemide Inj 10 Mg/Ml Vial 2 Ml IVP 06/26/25 08:59 20 mg QDAY JERRY Administration Glucagon 1 mg 05/26/25 18:07 Glucagon Inj 1 Mg Vial IM Q15MIN PRN BG <70, and no IV access Ceftriaxone Sodium/Dextrose 1 gm in 50 mls @ 100 mls/hr 05/25/25 10:58 05/29/25 09:39 Rocephin/D5w 1gm Iv Premix IV 06/01/25 10:57 100 mls/hr QDAY JERRY Administration Levalbuterol HCl 1.25 mg 05/26/25 15:00 05/29/25 14:13 Levalbuterol Rt 1.25 Mg/0.5 Ml Nebu INH 06/25/25 14:59 1.25 mg Q8HRRT JRERY Administration Levetiracetam 1,500 mg 05/24/25 21:00 05/29/25 09:41 Levetiracetam Inj 100 Mg/Ml Vial 5ml IVP 06/23/25 20:59 1,500 mg Q12HR JERRY Administration Levothyroxine Sodium 75 mcg 05/29/25 06:00 05/29/25 05:20 Levothyroxine Sodium 25 Mcg Tablet PO 06/28/25 05:59 75 mcg ACBR JERRY Administration Midodrine 5 mg 05/29/25 14:00 05/29/25 14:37 Midodrine 5 Mg Tablet PO 06/27/25 13:59 5 mg TID JERRY Administration Nystatin 0 gm 05/24/25 14:00 05/29/25 14:38 Nystatin Pwd 15 Gm Btl TOP 06/23/25 13:59 1 applicatio TID JERRY Administration Ondansetron HCl 4 mg 05/23/25 20:44 Ondansetron Inj 2 Mg/Ml Inj 2 Ml IVP 06/22/25 20:43 Q6H PRN NAUSEA OR VOMITING Protocol Sodium Chloride 3 ml 05/26/25 09:41 05/26/25 22:23 Sodium Chloride Rt [place] 0.9% 3 Ml Nebu INH 06/25/25 09:40 3 ml PRN PRN Administration SOLN Plan Lillie Jensen is a 70 F with PMHx significant for Down syndrome, seizures, asthma, hypothyroidism presenting to the ED obtunded in post-ictal state, admitted for breakthrough seizures and significant pleural effusion. Pending Bipap for residential. #Mucous plug? #Atelectasis #Pleural Effusions Patient is saturating and breathing much better after BIPAP, possibly due to clearing mucous plug or some bronchogenic mass. FUP CXR showed partial left lung re-expansion, was total opacification on prior CXR from earlier that night. Bilateral pleural effuisions found on CTAP, too minimal to drain per IR. 05/28: CXR showed Significant left lung pneumonia; Mild pneumonia right base; Significant left pleural fluid again depicted 05/28: CT Chest: Extensive pneumonia left lung; Moderate to large left pleural effusion; Mild to moderate right pleural effusion -Continue BIPAP at night. -Chest PT -Levalbuterol -Lasix 20mg IV q day -Continue to monitor for signs of respiratory distress #PNA with significant pleural effusion #Asthma Patient was discharged from [facility] 05/20 after being treated for pneumonia. Caregiver reports patient is continue to have difficulty breathing. Chest CTA showed large left pleural effusion and moderate right pleural effusion. Patient saturating well on 2 L via nasal cannula. Significant rhonchi on exam. Unclear if pneumonia with failure of treatment or new HAP. 05/25: MRSA nares negative -> discontinued Vancomycin; Cocci Negative; Thoracentesis Not done, minimal bilateral pleural effusions 05/28: Blood cultures Negative, Cocci negative stopped fluconazole - Ceftriaxone 1g in 50 mL IV QD - O2 as needed maintain sats 92% - Lasix 20mg IV q day - Suctioning as needed - Chest PT as needed - DuoNebs as needed - Hod Carrier Dr. 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 Atropine, LR and albumin given. 05/28: Patient passed swallow Eval, will restart midodrine Plan: -On tele -Atropine IVP Q10min PRN for symptomatic bradycardia -Midodrine 5mg PO TID -Cards consulted, recs appreciated #Breakthrough seizures #Seizure disorder Patient has known history of seizure disorder. Per caregiver, patient 2 witnessed tonic-clonic seizures in 24 hours prior to admission. Patient does not appear to have fully recovered back to baseline, per chart review patient at baseline is able to answer simple yes/no questions. Currently patient eyes open spontaneously, tracks, but does not verbally respond, does not follow commands. Patient follows with Dr. Mendoza outpatient. Patient received 1 g Keppra and 4 mg Versed in ED. - Dr. Mendoza consulted, appreciate recommendations - Keppra 1500 mg IV q12hr - Xcorpi 100 mg po qd will be delivered and given from transitional care liaison (non- formulary). - EEG: Abnormal w/ diffuse slowing with questionable spike and wave activity noted in bilateral, frontal, central, and temporal areas consistent with seizure disorder. - Seizure precautions - Telemonitoring #HFpEF Echo done 05/16/2025 showing grade I diastolic dysfunction. Estimated EF at 55- 60%, estimated RVSP, 42 mmHg. Patient has some signs of fluid overload. - Strict I/O's - Weights qd - Fluid Restriction 1500 ml - Cardiology consulted #Hypoglycemia-resolved Patient passed swallow eval 05/28. Has low blood sugars over night Plan -D50 PRN #Fungal infection Patient has large erythematous rash with small whitish plaques along base of neck and inner thighs, appears to be fungal rash. Improving 05/26, much less erythema, perimeter is much smaller, still circumfential around neck and in folds of skin. - Topical nystatin - Wound care #Hypothyroidism Patient history as stated. Patient passed swallow eval, will start home PO Levothyroxine. 05/28: FT4 0.88 (0.79) -Restarted home Levothyroxine 75 mcg PO ACBR DVT prophylaxis: Lovenox GI prophylaxis: None Diet: Passed swallow - On Dysphagia 1 Lines: Peripheral IV Code status: Full code Patient plan of care was discussed with the attending physician, Dr. Basurto & senior resident Dr. Lana Coleman MD PGY-1 Attending Provider Attestation/Addendum I reviewed labs, imaging, EKG, home medications and prior available records. Face to face evaluation was performed by me. I have personally examined the patient and discussed assessment and plan with the IM team. I reviewed the resident note and agree with the plan with exceptions as below. Breakthrough seizures Acute hypoxic respiratory failure HFpEF Left-sided pneumonia Bilateral pleural effusions Bradycardia, resolved Hyperactive delirium Continue Keppra and Xcorpi Continue gentle IV diuresis Continue nasal cannula/BiPAP Monitor heart rate Discussed hypodelirium with neurology: No need for medication adjustment Discussed nightly BiPAP upon discharge with social media marketer
--- NOTE | 2025-05-29 15:47 | PC.SS ---
SS received call from physician team that patient will now need a bipap for home. SS contacted [facility] and spoke to Kayley @ [phone] who is aware. Patient already has 02 from [facility]. will coordinate with [facility] to order bipap or trilogy unit. Possible d/c back to [facility] 1-2 days
--- NOTE | 2025-05-29 19:29 | PD.RESPRO ---
Documentation for date of: 05/29/25 Subjective Subjective Interval history: Patient was seen sitting in her bed comfortably, and examined. No acute events took place overnight. Pt is aware of the presence of this examiner in the room and tracks with her her eyes, though she doesn't respond to questions asked from her. CT of the chest was positive for extensive pneumonia left lung, pericardial effusion measuring up to 11mm, mild enlargement of the cardiac contour, moderate to large left pleural effusion, and mild to moderate right pleural effusion. In the absence of diuresis, blood pressure was stable in the 110s and 120s throughout night and the mroning; patient was administered 20 mg of furosemide in the morning, with lower BP readings in the afternoon. BP 90/64, pulse 70, resp 18, temp 97.4, O2 saturation 99% on 3 L NC. WBC 6.4, hemoglobin 12.3, platelet count 347. Potassium 4.0, BUN 5, creatinine 0.9, glucose 101, calcium 8.8, magnesium 2, AST 31, ALT 13, free T4 .88. Will continue to follow the pt. Exam Vital Signs Temp Pulse Resp BP Pulse Ox O2 Del Method O2 Flow Rate 97.4 F 70 18 90/64 99 Nasal Cannula 3 05/29/25 16:00 05/29/25 16:00 05/29/25 16:00 05/29/25 16:00 05/29/25 16:00 05/29/25 16:00 05/29/25 16:00 FiO2 35 05/29/25 01:45 Narrative Exam General: Currently seen on BiPAP, patient is sleepy but arousable. Skin: Intact, no cyanosis or edema noted. Noted erythematous patch around patient's neck, possibly fungal infection. HEENT: Atraumatic/normocephalic, LONNY, neck supple Heart: RRR, S1 and S2 without clicks or murmurs Lungs: Noted crackles bilaterally on auscultation, left-sided crackles in middle and basal zones. Currently on BiPAP. Abdomen: Soft, nontender. Bowel sounds present . Vascular: Peripheral pulses palpable Neuro: No focal neurological deficits noted. Unable to completely assess her mental function due to mental status. Objective Labs 05/29/25 05:14 05/29/25 05:14 Labs: Laboratory Results - last 24 hr 05/29/25 05:14 WBC 6.4 RBC 3.85 L Hgb 12.3 Hct 37.2 MCV 97 MCH 31.9 MCHC 33.1 RDW Std Deviation 49.1 H Plt Count 347 Neut % (Auto) 50 Lymph % (Auto) 28 [place] % (Auto) 18 H Eos % (Auto) 1 Baso % (Auto) 2 Neut # (Auto) 3.2 Lymph # (Auto) 1.8 [place] # (Auto) 1.2 H Eos # (Auto) 0.1 Baso # (Auto) 0.1 Immature Gran # (Auto) 0.05 H Absolute Nucleated RBC 0.00 Immature Gran % 1 H Nucleated RBC % 0 Sodium 141 Potassium 4.0 D Chloride 104 Carbon Dioxide 27.0 Anion Gap 10 BUN 5 L Creatinine 0.9 Estim Creat Clear Calc 36.5 L eGFR > 60 BUN/Creatinine Ratio 6 L Glucose 101 Calculated Osmolality 278 Calcium 8.8 Corrected Calcium 9.3 Phosphorus 2.8 Magnesium 2.0 Total Bilirubin 0.3 AST 31 ALT 13 Alkaline Phosphatase 111 Total Protein 5.7 Albumin 3.4 Globulin 2.3 Albumin/Globulin Ratio 1.5 Free T4 0.88 L ABG Interpretation ABG results: 05/23/25 05/26/25 19:00 02:33 ABG pH 7.38 7.43 ABG pCO2 55 H 48 ABG pO2 99 87 ABG HCO3 33 H 32 H ABG O2 Saturation 98 98 ABG Base Excess 6 H 6 H Quality Measures Quality Measures VTE prophylaxis Advance care planning discussed with:: other Assessment & Plan Assessment Current Active Medications: Generic Name Dose Route Start Last Admin Trade Name Freq PRN Reason Stop Dose Admin Acetaminophen 650 mg 05/23/25 20:44 Acetaminophen Supp 650 Mg Supp OK 06/22/25 20:43 Q6HR PRN Fever > 100.4 or pain Acetylcysteine 3 ml 05/26/25 15:00 05/29/25 14:12 Acetylcysteine Rt [place] 10% 4 Ml Nebu INH 06/25/25 14:59 3 ml Q8HRRT JERRY Administration Atropine Sulfate 1 mg 05/26/25 08:11 Atropine Sulf Inj 0.1 Mg/Ml Syr 10 Ml IVP 06/25/25 02:08 Q10MIN PRN bradycardia Xcopri 100 Mg Tablet 0 ea 05/24/25 21:00 05/29/25 00:44 PO 06/23/25 20:59 Not Given HS JERRY Dextrose 50 ml 05/26/25 18:07 Dextrose 50%-Water Inj 50 Ml Syringe IV 06/25/25 18:06 Q15MIN PRN BG <50 OR BG <70 & pt unresponsive Dextrose 25 ml 05/26/25 18:07 Dextrose 50%-Water Inj 50 Ml Syringe IV 06/25/25 18:06 Q15MIN PRN BG 50-70 responsive npo pt Enoxaparin Sodium 40 mg 05/24/25 09:00 05/29/25 09:40 Enoxaparin Sod Inj 40 Mg/0.4 Ml Syringe SC 06/07/25 08:59 40 mg QDAY JERRY Administration Furosemide 20 mg 05/27/25 09:00 05/29/25 09:40 Furosemide Inj 10 Mg/Ml Vial 2 Ml IVP 06/26/25 08:59 20 mg QDAY JERRY Administration Glucagon 1 mg 05/26/25 18:07 Glucagon Inj 1 Mg Vial IM Q15MIN PRN BG <70, and no IV access Ceftriaxone Sodium/Dextrose 1 gm in 50 mls @ 100 mls/hr 05/25/25 10:58 05/29/25 09:39 Rocephin/D5w 1gm Iv Premix IV 06/01/25 10:57 100 mls/hr QDAY JERRY Administration Levalbuterol HCl 1.25 mg 05/26/25 15:00 05/29/25 14:13 Levalbuterol Rt 1.25 Mg/0.5 Ml Nebu INH 06/25/25 14:59 1.25 mg Q8HRRT JERRY Administration Levetiracetam 1,500 mg 05/24/25 21:00 05/29/25 09:41 Levetiracetam Inj 100 Mg/Ml Vial 5ml IVP 06/23/25 20:59 1,500 mg Q12HR JERRY Administration Levothyroxine Sodium 75 mcg 05/29/25 06:00 05/29/25 05:20 Levothyroxine Sodium 25 Mcg Tablet PO 06/28/25 05:59 75 mcg ACBR JERRY Administration Midodrine 5 mg 05/29/25 14:00 05/29/25 14:37 Midodrine 5 Mg Tablet PO 06/27/25 13:59 5 mg TID JERRY Administration Nystatin 0 gm 05/24/25 14:00 05/29/25 14:38 Nystatin Pwd 15 Gm Btl TOP 06/23/25 13:59 1 applicatio TID JERRY Administration Ondansetron HCl 4 mg 05/23/25 20:44 Ondansetron Inj 2 Mg/Ml Inj 2 Ml IVP 06/22/25 20:43 Q6H PRN NAUSEA OR VOMITING Protocol Sodium Chloride 3 ml 05/26/25 09:41 05/26/25 22:23 Sodium Chloride Rt [place] 0.9% 3 Ml Nebu INH 06/25/25 09:40 3 ml PRN PRN Administration SOLN Plan Lillie Jensen is 70F with MHx Down's syndrome, HFpEF, seizure disorder, asthma, hypothyroidism who presented to the ED on 05/23/2025 having had two seizures back to back without a return to baseline during the previous 24h, difficulty breathing, and hypoxemia. She was admitted for inpatient management of her breakthrough seizures and acute hypoxic respiratory failure likely secondary to pneumonia and bilateral large pleural effusions Problems: 1. Bradycardia 2. Bilateral pleural effusions 3. Pneumonia 4. HFpEF 5. Hypothyroidism 6. Acute hypoxic respiratory failure 7. Hypokalemia 8. Hypomagnesemia 9. Seizures 10. History of Down syndrome 11. History of fast Patient was admitted following breakthrough seizures, and altered mental status following recurrent seizures, also noted to have breathing difficulty, admitted with acute hypoxic respiratory failure initial imaging showed bilateral large pleural effusions, CTA chest showed large Lt sided and moderate Rt sided pleural effusion. Mild heart failure and was negative for PE. patient was diuresed initially which led to improvement in pleural effusion, still has large left-sided pleural effusion, also noted to have pneumonia, infectious disease consultation to Dr Meier is placed, ID following. Started on ceftriaxone and fluconazole. Pending coccidiomycosis serology. Prior echocardiogram shows normal LV size and function normal EF, concern for diastolic dysfunction, bilateral pleural effusions possibly due to diastolic heart failure, agree with diuresing, as noted improvement following diuresis. Possible differentials include parapneumonic effusion, thoracentesis was ordered but unable to find enough fluid for thoracentesis by IR. Of note patient had recent admission for pneumonia and ICU stay for hypotension. Rapid response was called on 05/26/2025 at 1:27 AM for hypotension and bradycardia, noted heart rate 33 and MAP 47, received IV fluids 500 mL LR x 2, which improved blood pressure, EKG at the time showed sinus bradycardia, also noted T wave inversions which are consistent with prior EKG. Transient hypotension due to decreased intravascular volume which improved after fluid boluses, bradycardia likely occurred during sleep. Echo 05/16: Normal LV size and function. There is grade I diastolic dysfunction. Estimated EF at 55-60%. The RV is normal in size and systolic function. The estimated RVSP, 42 mmHg. RAP 5. Trace TR. Seizure activity is being managed by neurologist Dr. Mendoza. Pt is on Keppra IV 1.5g BID and XCorpi PO 100mg QD at home. Pt has lost >10L cumulative I&O since her admission 05/23. CT of the chest (05/28) was positive for extensive pneumonia left lung, pericardial effusion measuring up to 11mm, mild enlargement of the cardiac contour, moderate to large left pleural effusion, and mild to moderate right pleural effusion. Pt is being treated with ceftriaxone. BP in the evening was low in 90's/50's as patient was being diuresed with Lasix IV20mg. Recommendations: -Overnight telemetry reviewed, patient had HR above 60 consistently. Consider proceeding with ACLS bradycardia algorithm if patient has symptomatic bradycardia again. -Pt is on midodrine PO 5mg as needed, consider adding holding parameters for midodrine as it can cause bradycardia. -Fluid restriction 1.5L daily with strict I&O -keep K+ >4 and Mg >2 at all times Thank you for cardiology consultation. We appreciate the opportunity to participate in this patient's care. Will continue to follow-up on this patient This case was discussed with my attending physician, Dr. Aguiar, manager summer. Jace Galicia, PGY I Attending Provider Attestation/Addendum I have personally seen and examined the patient separately on the above date of service and discussed the plan of care with the resident. I reviewed the resident consultation progress note and agree with the resident findings and plan in the note above and have also edited the documentation to reflect my findings and plan. Adonis Aguiar M.D. Interventional Cardiology
--- NOTE | 2025-05-29 23:05 | PD.VPROG1 ---
Telemedicine visit statement This visit was conducted with the use of phone was obtained on 05/29/25 at 2305. Documentation for date of: 05/29/25 Subjective Subjective Interval history: Patient is in med surg, no major seizures reported. Virtual exam Vital Signs Temp Pulse Resp BP Pulse Ox O2 Del Method O2 Flow Rate 97.1 F 68 18 107/58 L 99 Nasal Cannula 2 05/29/25 21:55 05/29/25 22:55 05/29/25 22:55 05/29/25 21:55 05/29/25 22:55 05/29/25 21:55 05/29/25 22:55 FiO2 35 05/29/25 01:45 Objective Labs 05/29/25 05:14 05/29/25 05:14 Labs: Laboratory Results - last 24 hr 05/29/25 05:14 WBC 6.4 RBC 3.85 L Hgb 12.3 Hct 37.2 MCV 97 MCH 31.9 MCHC 33.1 RDW Std Deviation 49.1 H Plt Count 347 Neut % (Auto) 50 Lymph % (Auto) 28 [place] % (Auto) 18 H Eos % (Auto) 1 Baso % (Auto) 2 Neut # (Auto) 3.2 Lymph # (Auto) 1.8 [place] # (Auto) 1.2 H Eos # (Auto) 0.1 Baso # (Auto) 0.1 Immature Gran # (Auto) 0.05 H Absolute Nucleated RBC 0.00 Immature Gran % 1 H Nucleated RBC % 0 Sodium 141 Potassium 4.0 D Chloride 104 Carbon Dioxide 27.0 Anion Gap 10 BUN 5 L Creatinine 0.9 Estim Creat Clear Calc 36.5 L eGFR > 60 BUN/Creatinine Ratio 6 L Glucose 101 Calculated Osmolality 278 Calcium 8.8 Corrected Calcium 9.3 Phosphorus 2.8 Magnesium 2.0 Total Bilirubin 0.3 AST 31 ALT 13 Alkaline Phosphatase 111 Total Protein 5.7 Albumin 3.4 Globulin 2.3 Albumin/Globulin Ratio 1.5 Free T4 0.88 L ABG Interpretation ABG results: 05/23/25 05/26/25 19:00 02:33 ABG pH 7.38 7.43 ABG pCO2 55 H 48 ABG pO2 99 87 ABG HCO3 33 H 32 H ABG O2 Saturation 98 98 ABG Base Excess 6 H 6 H Assessment & Plan Problem List (1) Seizure: Status: Acute Assessment and plan: Continue with Keppra and Xcopri Follow seizure precautions and continue to monitor for any breakthrough seizures stable for dc home on current doses (2) Pneumonia: Status: Acute Assessment and plan: treated with IV antibiotics Continue to monitor for respiratory distress from hypoxia
[2025-05-30] VITALS (14 sets, daily range): BP systolic 93–128; BP diastolic 54–70; PULSE 52–74; RESP 14–100; TEMP 36–36.4; O2SAT 95–100; BMI 21.7
[2025-05-30] MEDS: NYSTATIN PWD 15 GM BTL TOP ×3 (05:37→22:47)
[2025-05-30] MEDS: LEVOTHYROXINE SODIUM 25 MCG TABLET 75 MCG PO (05:37)
[2025-05-30] MEDS: MIDODRINE 5 MG TABLET PO ×3 (05:43→22:47)
[2025-05-30 06:33] LABS: Basophils # (Auto) 0.1 Thou/mm3 (0.0-0.2); Basophils % (Auto) 2 % (0-2.5); Eosinophils # (Auto) 0.1 Thou/mm3 (0.0-0.5); Eosinophils % (Auto) 1 % (0-10); Hematocrit 43.2 % (36.0-46.0); Hemoglobin 14.4 g/dL (12.0-16.0); Immature Granulocytes Auto 0.03 Thou/mm3 (0.00-0.00); Lymphocytes # (Auto) 1.7 Thou/mm3 (1.0-4.8); Lymphocytes % (Auto) 33 % (10-50); Mean Corpuscular HGB Conc 33.3 g/dl (31.0-37.0); Mean Corpuscular Hemoglobin 32.8 pg (25.0-35.0); Mean Corpuscular Volume 98 fL (80-100); Monocytes # (Auto) 0.6 Thou/mm3 (0.0-0.8); Monocytes % (Auto) 12 % (0-12); Neutrophils # (Auto) 2.7 Thou/mm3 (1.8-7.7); Neutrophils % (Auto) 52 % (37-80); Nucleated Red Blood Cell # 0.00 Thou/mm3 (0.00-0.00); Nucleated Red Blood Cell % 0 /100 WBC (0); Platelet Count 298 Thou/mm3 (140-440); RDW Standard Deviation 51.5 fL (36.4-46.3); Red Blood Count 4.39 Miln/mm3 (4.00-5.20); White Blood Count 5.2 Thou/mm3 (3.6-11.0)
[2025-05-30] MEDS: LEVALBUTEROL RT 1.25 MG/0.5 ML NEBU INH ×3 (06:52→22:25)
[2025-05-30] MEDS: ACETYLCYSTEINE RT SOL 10% 4 ML NEBU 3 ML INH ×3 (06:52→22:25)
[2025-05-30 06:58] LABS: Alanine Aminotransferase 14 U/L (10-49); Albumin, Serum 3.9 gm/dL (3.4-4.8); Albumin/Globulin Ratio 1.3 (1.2-2.2); Alkaline Phosphatase 125 U/L (46-116); Anion Gap 11 (7-16); Aspartate Amino Transferase 28 U/L (0-34); BUN/Creatinine Ratio 9 Ratio (12-20); Bilirubin,Total 0.2 mg/dL (0.3-1.2); Blood Urea Nitrogen 6 mg/dL (9-23); Calcium 9.8 mg/dL (8.3-10.6); Calcium (Corrected) 9.9 mg/dL (8.5-10.1); Carbon Dioxide 30.7 mMol/L (20.0-31.0); Chloride 101 mMol/L (98-107); Creatinine (Component) 0.7 mg/dL (0.6-1.3); Estimated Creatinine Clearance 46.9 mL/min (>60); Globulin 2.9 gm/dL (2.3-3.5); Glucose 91 mg/dL (74-106); Magnesium 2.1 mg/dL (1.6-2.6); Osmolality,Calculated 282 (275-295); Phosphorous 2.9 mg/dL (2.4-5.1); Potassium 3.6 mMol/L (3.4-5.1); Sodium 143 mMol/L (136-145); Total Protein 6.8 gm/dL (5.7-8.2); eGFR > 60 See Note
[2025-05-30] MEDS: cefTRIAXone/D5w 1gm IV premix 1 GM/50 ML BAG IV (09:01)
[2025-05-30] MEDS: ENOXAPARIN SOD INJ 40 MG/0.4 ML SYRINGE SC (09:02)
[2025-05-30] MEDS: FUROSEMIDE INJ 10 MG/ML VIAL 2 ML 20 MG IVP (09:02)
[2025-05-30] MEDS: levETIRAcetam INJ 100 MG/ML VIAL 5ML 1500 MG IVP ×2 (09:04→22:36)
--- NOTE | 2025-05-30 09:43 | ESPR_ITS ---
Subjective Subjective Interval history: if pt has hep b, it is chronic and vl is pending. afebrile with normal lft's Exam Vital Signs Temp Pulse Resp BP Pulse Ox O2 Del Method O2 Flow Rate 96.8 F 63 17 126/66 95 Nasal Cannula 5 05/30/25 08:00 05/30/25 09:02 05/30/25 08:00 05/30/25 09:02 05/30/25 08:00 05/30/25 08:00 05/30/25 08:00 FiO2 35 05/29/25 01:45 Narrative Exam limited visit today Objective - Internal Medicine Labs 05/30/25 05:26 05/30/25 05:26 Labs: Laboratory Results - last 24 hr 05/29/25 05/30/25 05:14 05:26 WBC 5.2 RBC 4.39 Hgb 14.4 D Hct 43.2 MCV 98 MCH 32.8 MCHC 33.3 RDW Std Deviation 51.5 H Plt Count 347 298 D Neut % (Auto) 52 Lymph % (Auto) 33 [place] % (Auto) 12 Eos % (Auto) 1 Baso % (Auto) 2 Neut # (Auto) 2.7 Lymph # (Auto) 1.7 [place] # (Auto) 0.6 Eos # (Auto) 0.1 Baso # (Auto) 0.1 Immature Gran # (Auto) 0.03 H Absolute Nucleated RBC 0.00 Immature Gran % 1 H Nucleated RBC % 0 Sodium 143 Potassium 3.6 Chloride 101 Carbon Dioxide 30.7 Anion Gap 11 BUN 6 L Creatinine 0.7 Estim Creat Clear Calc 46.9 L eGFR > 60 BUN/Creatinine Ratio 9 L Glucose 91 Calculated Osmolality 282 Calcium 9.8 Corrected Calcium 9.9 Phosphorus 2.9 Magnesium 2.1 Total Bilirubin 0.2 L AST 28 ALT 14 Alkaline Phosphatase 125 H Total Protein 6.8 Albumin 3.9 D Globulin 2.9 Albumin/Globulin Ratio 1.3 ABG Interpretation ABG results: 05/23/25 05/26/25 19:00 02:33 ABG pH 7.38 7.43 ABG pCO2 55 H 48 ABG pO2 99 87 ABG HCO3 33 H 32 H ABG O2 Saturation 98 98 ABG Base Excess 6 H 6 H Assessment & Plan A&P Narrative sz. on empiric abx prior staph bacteremia in march. management per others at that time no formal S not ed down syndrome hypothyroid hypoxia and pneumonia by imaging empiric rx changed to po today, will stop by wednesday if still here. O2 may be new and echo neg so cause of O2 need under investigation. cocci neg flucon stopped. await hep b vl. if pos. ok to check hep e antigen and afp and ammonia, but will wait for vl first . we do not treat hep be unless the vl is >5,000 copies or if she has esld as it does not change outcomes also, hep b rx is usually life long. 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
--- NOTE | 2025-05-30 09:50 | ESPR_ITS ---
Subjective Subjective Interval history: seen on wednesday. not any other day. initial consult lost 05/25 odd but true. Exam Vital Signs Temp Pulse Resp BP Pulse Ox O2 Del Method O2 Flow Rate 96.8 F 63 17 126/66 95 Nasal Cannula 5 05/30/25 08:00 05/30/25 09:02 05/30/25 08:00 05/30/25 09:02 05/30/25 08:00 05/30/25 08:00 05/30/25 08:00 FiO2 35 05/29/25 01:45 Narrative Exam ON O2 with pneumonia and a normal echo. hx of down syndrome noted Objective - Internal Medicine Labs 05/30/25 05:26 05/30/25 05:26 Labs: Laboratory Results - last 24 hr 05/29/25 05/30/25 05:14 05:26 WBC 5.2 RBC 4.39 Hgb 14.4 D Hct 43.2 MCV 98 MCH 32.8 MCHC 33.3 RDW Std Deviation 51.5 H Plt Count 347 298 D Neut % (Auto) 52 Lymph % (Auto) 33 [facility] % (Auto) 12 Eos % (Auto) 1 Baso % (Auto) 2 Neut # (Auto) 2.7 Lymph # (Auto) 1.7 [facility] # (Auto) 0.6 Eos # (Auto) 0.1 Baso # (Auto) 0.1 Immature Gran # (Auto) 0.03 H Absolute Nucleated RBC 0.00 Immature Gran % 1 H Nucleated RBC % 0 Sodium 143 Potassium 3.6 Chloride 101 Carbon Dioxide 30.7 Anion Gap 11 BUN 6 L Creatinine 0.7 Estim Creat Clear Calc 46.9 L eGFR > 60 BUN/Creatinine Ratio 9 L Glucose 91 Calculated Osmolality 282 Calcium 9.8 Corrected Calcium 9.9 Phosphorus 2.9 Magnesium 2.1 Total Bilirubin 0.2 L AST 28 ALT 14 Alkaline Phosphatase 125 H Total Protein 6.8 Albumin 3.9 D Globulin 2.9 Albumin/Globulin Ratio 1.3 ABG Interpretation ABG results: 05/23/25 05/26/25 19:00 02:33 ABG pH 7.38 7.43 ABG pCO2 55 H 48 ABG pO2 99 87 ABG HCO3 33 H 32 H ABG O2 Saturation 98 98 ABG Base Excess 6 H 6 H Assessment & Plan A&P Narrative sz. on empiric abx prior staph bacteremia in march. management per others at that time no formal S not ed down syndrome hypothyroid hypoxia and pneumonia by imaging empiric rx changed to po eventually, will stop by periodically if still here. O2 may be new and echo neg so cause of O2 need under investigation. cocci neg flucon stopped. await hep b vl. if pos. ok to check hep e antigen and afp and ammonia, but will wait for vl first . we do not treat hep be unless the vl is >5,000 copies or if she has esld as it does not change outcomes also, hep b rx is usually life long. her prognosis [facility]dc is guarded as the is already 70 yoa and has down syndrome Time Spent With Patient Time: Total time spent is greater than 50% in coordination of care (as documented) at patient's floor/unit and/or counseling patient:
--- NOTE | 2025-05-30 12:52 | ESDS_ITS ---
Planned Discharge Date 05/30/25 DS: Providers Provider Date of admission: 05/23/25 20:44 Primary care physician: Rolando Rosas MD Admitting Provider: Usama Kruger MD Attending Provider on Admission: Brandon Basurto MD Consults: 05/23/25 20:50 Consult to Neurology / Tele-Neurology Routine Comment: Christen canchola Consulting Provider: Koby Mendoza 05/23/25 23:49 Referral Wound Care Routine Comment: Infection/rash along neck 05/24/25 08:17 Consult to Infectious Diseases Routine Comment: Consulting Provider: Trev Meier 05/24/25 10:02 Referral Speech Therapy Stat Comment: 05/26/25 08:21 Consult to Medical Intern Routine Comment: Consulting Provider: Young Ruby I 05/26/25 10:11 Consult to Cardiology Routine Comment: Consulting Provider: Adonis Aguiar Instructions: Bradycardia 05/28/25 13:20 Referral Physical Therapy Routine Comment: Physician Instructions: Attending Provider on DC: Angy Lowe MD Discharging Provider: Angy Lowe MD DS: Diagnosis Problem List Completed Was Problem List Reviewed/Reconciled?: Yes Hospital Course Hospital Course Hospital course: A 70-year-old female patient with past medical history of Down syndrome, seizure disorder, asthma, hypothyroidism, was brought to the ED after she was found to have multiple breakthrough seizure. As per the caregiver it was 2 witnessed tonic-clonic seizures. In evaluation patient was found to have multiple breakthrough seizures in which were consulted neurologist Dr Mendoza and she recommended to increase the dose of Keppra to 1500 mg twice daily. Then started the patient on Xcopri. Since patient was started on this regimen patient has not developed any seizure episodes. During his stay we noticed that the patient has bilateral pleural effusion, and also the patient developed left pulmonary atelectasis. We consulted lodging facilities manager and he recommended to do chest physical therapy and also BiPAP at night as it most likely secondary to mucous plug. We also started the patient on breathing treatment. Following this measures repeat chest x-ray in 2 occasions was negative for any atelectasis at this time however it was still positive for pleural effusion in which it was secondary to her heart failure and would need to be treated only with diuretics. Our in-house lodging facilities manager recommended that the patient has to follow-up in outpatient settings with a lodging facilities manager within a week from discharge and then within 4 to 6 weeks from discharge as the patient might need bronchoscopy to rule out endobronchial lesion causing the atelectasis. At this time patient oxygen requirements remains below baseline at 2 L of oxygen. He was able to tolerate feedings well. We noticed that her hepatitis antigen test was positive for that reason we sent for viral load based on the infectious disease recommendations. However results still pending and it can be followed-up in outpatient settings to initiate hepatitis B treatment if viral load above 5000 copies as per the infectious disease recommendations. At this time patient is deemed to be clinically stable for discharge on BiPAP at night with the following in structions: Discharge instructions Follow-up with your PCP within 1 week We are increasing your Keppra, take as prescribed We are prescribing your lasix, take as prescribed Follow up with your neurologist, Dr. Mendoza within one to two weeks Repeat Chest Xray upon your next visit with your PCP Follow-up with your PCP regarding the final results of the viral load of hepatitis B. If viral load more than 5000 copies patient has to see infectious disease specialist for treatment of hepatitis B. Use BiPAP daily at night to prevent lung collapse, follow-up with the lodging facilities manager recommendations if it will be needed continuously. Speak with your PCP within 4-6 weeks in regards to referral to pulmonology for outpatient bronchoscopy Use BiPAP if available daily at night if not available please have daily chest physical therapy, to prevent lung collapse, follow-up with the lodging facilities manager recommendations if it will be needed continuously. Follow-up imaging in 4 to 6 weeks to ensure resolution of intraparenchymal process to exclude presence of any endobronchial lesion Use inhaler as needed We are prescribing your Midodrine, take as prescriebd Use nystatin powder for your fungal infection as directed Take your medicines as prescribed Return to ED if your symptoms worsen or return Discharging diagnosis #Seizure disorder #Atelectasis secondary to mucous plug versus endobronchial lesion (require chest physical therapy daily) #Pleural effusion #Community-acquired pneumonia #History of asthma #History of HFpEF #Hypoglycemia #History of hypothyroidism - Patient's plan and care discussed with my attending, Dr. Sb Lowe MD Internal Medicine PGY-3 Time Spent with Patient Time attestation: Total time spent providing and/or coordinating discharge services: Time spent: Greater than 30 minutes Exam Vital Signs Temp Pulse Resp BP Pulse Ox O2 Del Method O2 Flow Rate 96.8 F 54 L 17 126/66 95 Nasal Cannula 2 05/30/25 08:00 05/30/25 12:00 05/30/25 09:00 05/30/25 09:02 05/30/25 09:00 05/30/25 08:00 05/30/25 09:00 FiO2 35 05/29/25 01:45 Narrative Exam GEN: Lying in bed comfortably, Down syndrome facies, Sleepy however arousable, was able to finish her breakfast. HEENT: NC/AC, oral mucosa moist, neck supple CVS: RRR, S1-S2 present, no murmurs appreciated RESP: Good air entry bilaterally GI: soft,non distended, non tender, NBS MSK: No muscular deformity, able to move her extremities, no lower extremity edema SKIN: Neck skin erythema has been improving. SHIPPING TECHNICIAN: CN II-XII and Sensation grossly intact. Discharge Plan Plan Patient Disposition: HOME (Self Care) Patient condition on transfer: Stable Care Plan Goals: Discharge instructions Follow-up with your PCP within 1 week We are increasing your Keppra, take as prescribed We are prescribing your lasix, take as prescribed Follow up with your neurologist, Dr. Mendoza within one to two weeks Repeat Chest Xray upon your next visit with your PCP Follow-up with your PCP regarding the final results of the viral load of hepatitis B. If viral load more than 5000 copies patient has to see infectious disease specialist for treatment of hepatitis B. Use BiPAP daily at night to prevent lung collapse, follow-up with the lodging facilities manager recommendations if it will be needed continuously. Speak with your PCP within 4-6 weeks in regards to referral to pulmonology for outpatient bronchoscopy Use BiPAP if available daily at night if not available please have daily chest physical therapy, to prevent lung collapse, follow-up with the lodging facilities manager recommendations if it will be needed continuously. Follow-up imaging in 4 to 6 weeks to ensure resolution of intraparenchymal process to exclude presence of any endobronchial lesion Use inhaler as needed We are prescribing your Midodrine, take as prescriebd Use nystatin powder for your fungal infection as directed Take your medicines as prescribed Return to ED if your symptoms worsen or return Prescriptions/Referrals Prescriptions/Med Rec: New levetiracetam [Keppra] 750 mg tablet 1,500 mg PO BID 30 Days Qty: 120 0RF Rx Instructions: Take two tablets by mouth twice a day furosemide [Lasix] 20 mg tablet 20 mg PO Q OTHER DAY 14 Days Qty: 7 0RF Rx Instructions: Take one tablet by mouth every other day midodrine 5 mg tablet 5 mg PO TID 14 Days Qty: 42 0RF Rx Instructions: Take one tablet by mouth ever day Hold if systolic blood pressure above 110 or heart rate below 60 nystatin 100,000 unit/gram ointment 1 applic topical BID 3 Days Qty: 15 0RF Rx Instructions: Apply to affected area twice a day albuterol sulfate 90 mcg/actuation HFA aerosol inhaler 1 inh inhalation QID PRN (Reason: shortness of breath or wheezing) 30 Days Qty: 6.7 0RF Rx Instructions: Take one puff up to four times a day (DME) Bipap Misc See Rx Instructions .Route Qty: 1 0RF Rx Instructions: As directed Continued methenamine hippurate [Hiprex] 1 gram tablet 1 g PO QDAY levothyroxine 75 mcg tablet 75 mcg PO DAILY docusate sodium 100 mg capsule 100 mg PO BID aspirin 81 mg tablet,chewable 81 mg PO DAILY montelukast 10 mg tablet 10 mg PO DAILY loratadine 10 mg tablet 10 mg PO DAILY calcium carbonate-vitamin D3 600 mg-10 mcg (400 unit) tablet 1 tab PO BID cranberry extract [Cranberry Concentrate] 500 mg Capsule 500 mg PO QDAY Rx Instructions: administer with meals polyethylene glycol 3350 17 gram/dose powder 17 g PO QDAY Held quetiapine 100 mg tablet 100 mg PO HS Hold Instructions: Resume on 06/05/25. To be reviewed and resumed by the neurologist Discontinued levetiracetam [Keppra XR] 500 mg Tablet Extended Release 24 Hr 1,000 mg PO QMORNING Rx Instructions: two tablets by mouth in the morning 1000mg three tablets by mouth at bedtime 1500mg Referrals: Rolando Rosas MD [Primary Care Provider] - Koby Mendoza MD [Physician] - Outpatient Orders (i.e. Home Health, Labs, Imaging): XR chest 1V (Routine) Timeframe: 1 Week Location: Determined by Patient Ordered By: Catina Schwartz Patient/Caregiver Discharge Instructions Discharge Activity: activity as tolerated Education Materials: Pleural Effusion, Thoracentesis Dc, Flexible Bronchoscopy Print Language: Cypriot Stand Alone Forms: Laurie Award Info., Patient Portal Info Letter Discharge Order Discharge Orders: Discharge (Routine); Ordered 05/30/25 Ordered By: Angy Lowe Quality Discharge Quality Measures VTE prophylaxis MD Attestestation MD Attestation I reviewed labs, imaging, EKG, home medications and prior available records. Face to face evaluation was performed by me. I have personally examined the patient and discussed assessment and plan with the IM team. I reviewed the resident note and agree with the plan with exceptions as below. Breakthrough seizures Acute hypoxic respiratory failure HFpEF Left-sided pneumonia Bilateral pleural effusions Bradycardia, resolved Hyperactive delirium Continue Keppra and Xcorpi Continue gentle IV diuresis Consulted ID: Recommended cefuroxime Continue nasal cannula/BiPAP as needed Monitor heart rate: Stable Discussed hypodelirium with neurology: No need for medication adjustment Continue oxygen therapy at home
--- NOTE | 2025-05-30 15:54 | PC.SS ---
Follow up note: SS spoke to physician team who recommended a bipap. However, SS coordinated with [facility] and they state that patient does not have a qualifying diagnosis for a bipap machine. Patient has 02 at home from [facility]. Updated physician team and [facility]. alftrailers and motor homes salesperson, Lisa, decided to file an appeal and does not feel patient is ready for discharge.
--- NOTE | 2025-05-30 16:14 | PC.CC ---
Addendum entered and electronically signed by Kavitha Nelson RPh 05/31/25 09:11: Portal status is Physician Review Completed Original Note: [facility] [id number] clinical documentation uploaded via portal. Portal status is All documents received .
--- NOTE | 2025-05-30 23:37 | ESPR_ITS ---
Documentation for date of: 05/30/25 Subjective Subjective Interval history: Patient was seen sitting in her bed comfortably, and examined. No acute events took place overnight. Pt is aware of the presence of this examiner in the room and tracks with her her eyes, though she doesn't respond to questions asked from her. CT of the chest was positive for extensive pneumonia left lung, pericardial effusion measuring up to 11mm, mild enlargement of the cardiac contour, moderate to large left pleural effusion, and mild to moderate right pleural effusion. BP varied between 90s and 120s throughout the day, with lower numbers in the p.m. after IV 20 mg of furosemide. BP 93/54, HR 65, RR 18, T 97.6F, O2 99% on NC 2L. WBC 5.2 Hgb 14.4, K+ 3.6, BUN 6, CR 0.7, glucose 91, Mg 2.1, ALP 125 Exam Vital Signs Temp Pulse Resp BP Pulse Ox O2 Del Method O2 Flow Rate 97.6 F 65 18 93/54 L 99 Nasal Cannula 2 05/30/25 20:00 05/30/25 22:47 05/30/25 22:25 05/30/25 22:47 05/30/25 22:25 05/30/25 20:00 05/30/25 22:25 FiO2 35 05/29/25 01:45 Narrative Exam General: Currently seen on BiPAP, patient is sleepy but arousable. Skin: Intact, no cyanosis or edema noted. Noted erythematous patch around patient's neck, possibly fungal infection. HEENT: Atraumatic/normocephalic, LONNY, neck supple Heart: RRR, S1 and S2 without clicks or murmurs Lungs: Noted crackles bilaterally on auscultation, left-sided crackles in middle and basal zones. Currently on BiPAP. Abdomen: Soft, nontender. Bowel sounds present . Vascular: Peripheral pulses palpable Neuro: No focal neurological deficits noted. Unable to completely assess her mental function due to mental status. Objective Labs 05/31/25 09:47 06/01/25 05:18 Labs: Laboratory Results - last 24 hr 05/30/25 05:26 WBC 5.2 RBC 4.39 Hgb 14.4 D Hct 43.2 MCV 98 MCH 32.8 MCHC 33.3 RDW Std Deviation 51.5 H Plt Count 298 D Neut % (Auto) 52 Lymph % (Auto) 33 [place] % (Auto) 12 Eos % (Auto) 1 Baso % (Auto) 2 Neut # (Auto) 2.7 Lymph # (Auto) 1.7 [place] # (Auto) 0.6 Eos # (Auto) 0.1 Baso # (Auto) 0.1 Immature Gran # (Auto) 0.03 H Absolute Nucleated RBC 0.00 Immature Gran % 1 H Nucleated RBC % 0 Sodium 143 Potassium 3.6 Chloride 101 Carbon Dioxide 30.7 Anion Gap 11 BUN 6 L Creatinine 0.7 Estim Creat Clear Calc 46.9 L eGFR > 60 BUN/Creatinine Ratio 9 L Glucose 91 Calculated Osmolality 282 Calcium 9.8 Corrected Calcium 9.9 Phosphorus 2.9 Magnesium 2.1 Total Bilirubin 0.2 L AST 28 ALT 14 Alkaline Phosphatase 125 H Total Protein 6.8 Albumin 3.9 D Globulin 2.9 Albumin/Globulin Ratio 1.3 ABG Interpretation ABG results: 05/23/25 05/26/25 19:00 02:33 ABG pH 7.38 7.43 ABG pCO2 55 H 48 ABG pO2 99 87 ABG HCO3 33 H 32 H ABG O2 Saturation 98 98 ABG Base Excess 6 H 6 H Quality Measures Quality Measures VTE prophylaxis Advance care planning discussed with:: other Assessment & Plan Assessment Current Active Medications: Generic Name Dose Route Start Last Admin Trade Name Freq PRN Reason Stop Dose Admin Acetaminophen 650 mg 05/23/25 20:44 Acetaminophen Supp 650 Mg Supp MA 06/22/25 20:43 Q6HR PRN Fever > 100.4 or pain Acetylcysteine 3 ml 05/26/25 15:00 05/30/25 22:25 Acetylcysteine Rt Shannon 10% 4 Ml Nebu INH 06/25/25 14:59 3 ml Q8HRRT JERRY Administration Atropine Sulfate 1 mg 05/26/25 08:11 Atropine Sulf Inj 0.1 Mg/Ml Syr 10 Ml IVP 06/25/25 02:08 Q10MIN PRN bradycardia Cefuroxime Axetil 500 mg 05/30/25 21:00 05/30/25 22:47 Cefuroxime Axetil 250 Mg Tablet PO 06/03/25 23:00 500 mg BID JERRY Administration Xcopri 100 Mg Tablet 0 ea 05/24/25 21:00 05/30/25 22:49 PO 06/23/25 20:59 Not Given HS JERRY Dextrose 50 ml 05/26/25 18:07 Dextrose 50%-Water Inj 50 Ml Syringe IV 06/25/25 18:06 Q15MIN PRN BG <50 OR BG <70 & pt unresponsive Dextrose 25 ml 05/26/25 18:07 Dextrose 50%-Water Inj 50 Ml Syringe IV 06/25/25 18:06 Q15MIN PRN BG 50-70 responsive npo pt Enoxaparin Sodium 40 mg 05/24/25 09:00 05/30/25 09:02 Enoxaparin Sod Inj 40 Mg/0.4 Ml Syringe SC 06/07/25 08:59 40 mg QDAY JERRY Administration Furosemide 20 mg 05/27/25 09:00 05/30/25 09:02 Furosemide Inj 10 Mg/Ml Vial 2 Ml IVP 06/26/25 08:59 20 mg QDAY JERRY Administration Glucagon 1 mg 05/26/25 18:07 Glucagon Inj 1 Mg Vial IM Q15MIN PRN BG <70, and no IV access Levalbuterol HCl 1.25 mg 05/26/25 15:00 05/30/25 22:25 Levalbuterol Rt 1.25 Mg/0.5 Ml Nebu INH 06/25/25 14:59 1.25 mg Q8HRRT JERRY Administration Levetiracetam 1,500 mg 05/24/25 21:00 05/30/25 22:36 Levetiracetam Inj 100 Mg/Ml Vial 5ml IVP 06/23/25 20:59 1,500 mg Q12HR JERRY Administration Levothyroxine Sodium 75 mcg 05/29/25 06:00 05/30/25 05:37 Levothyroxine Sodium 25 Mcg Tablet PO 06/28/25 05:59 75 mcg ACBR JERRY Administration Midodrine 5 mg 05/29/25 14:00 05/30/25 22:47 Midodrine 5 Mg Tablet PO 06/27/25 13:59 5 mg TID JERRY Administration Nystatin 0 gm 05/24/25 14:00 05/30/25 22:47 Nystatin Pwd 15 Gm Btl TOP 06/23/25 13:59 1 applicatio TID JERRY Administration Ondansetron HCl 4 mg 05/23/25 20:44 Ondansetron Inj 2 Mg/Ml Inj 2 Ml IVP 06/22/25 20:43 Q6H PRN NAUSEA OR VOMITING Protocol Sodium Chloride 3 ml 05/26/25 09:41 05/26/25 22:23 Sodium Chloride Rt Shannon 0.9% 3 Ml Nebu INH 06/25/25 09:40 3 ml PRN PRN Administration FORTUNATO Daily Lillie Jensen is 70F with MHx Down's syndrome, HFpEF, seizure disorder, asthma, hypothyroidism who presented to the ED on 05/23/2025 having had two seizures back to back without a return to baseline during the previous 24h, difficulty breathing, and hypoxemia. She was admitted for inpatient management of her breakthrough seizures and acute hypoxic respiratory failure likely secondary to pneumonia and bilateral large pleural effusions Problems: 1. Bradycardia 2. Bilateral pleural effusions 3. Pneumonia 4. HFpEF 5. Hypothyroidism 6. Acute hypoxic respiratory failure 7. Hypokalemia 8. Hypomagnesemia 9. Seizures 10. History of Down syndrome 11. History of fast Patient was admitted following breakthrough seizures, and altered mental status following recurrent seizures, also noted to have breathing difficulty, admitted with acute hypoxic respiratory failure initial imaging showed bilateral large pleural effusions, CTA chest showed large Lt sided and moderate Rt sided pleural effusion. Mild heart failure and was negative for PE. patient was diuresed initially which led to improvement in pleural effusion, still has large left-sided pleural effusion, also noted to have pneumonia, infectious disease consultation to Dr Meier is placed, ID following. Started on ceftriaxone and fluconazole. Pending coccidiomycosis serology. Prior echocardiogram shows normal LV size and function normal EF, concern for diastolic dysfunction, bilateral pleural effusions possibly due to diastolic heart failure, agree with diuresing, as noted improvement following diuresis. Possible differentials include parapneumonic effusion, thoracentesis was ordered but unable to find enough fluid for thoracentesis by IR. Of note patient had recent admission for pneumonia and ICU stay for hypotension. Rapid response was called on 05/26/2025 at 1:27 AM for hypotension and bradycardia, noted heart rate 33 and MAP 47, received IV fluids 500 mL LR x 2, which improved blood pressure, EKG at the time showed sinus bradycardia, also noted T wave inversions which are consistent with prior EKG. Transient hypotension due to decreased intravascular volume which improved after fluid boluses, bradycardia likely occurred during sleep. Echo 05/16: Normal LV size and function. There is grade I diastolic dysfunction. Estimated EF at 55-60%. The RV is normal in size and systolic function. The estimated RVSP, 42 mmHg. RAP 5. Trace TR. Seizure activity is being managed by neurologist Dr. Mendoza. Pt is on Keppra IV 1.5g BID and XCorpi PO 100mg QD at home. Pt has lost >10L cumulative I&O since her admission 05/23. CT of the chest (05/28) was positive for extensive pneumonia left lung, pericardial effusion measuring up to 11mm, mild enlargement of the cardiac contour, moderate to large left pleural effusion, and mild to moderate right pleural effusion. Pt is being treated with ceftriaxone. SBP in 100s to 120s in a.m. and goes down in the afternoon to 90s after administration of furosemide IV 20 mg. Free T4 .88 Recommendations: -Overnight telemetry reviewed, patient had HR above 60 consistently. Consider proceeding with ACLS bradycardia algorithm if patient has symptomatic bradycardia again. -Pt is on midodrine PO 5mg as needed, consider adding holding parameters for midodrine as it can cause bradycardia. -Fluid restriction 1.5L daily with strict I&O -keep K+ >4 and Mg >2 at all times Thank you for cardiology consultation. We appreciate the opportunity to participate in this patient's care. Will continue to follow-up on this patient This case was discussed with my attending physician, Dr. Aguiar, sound engineer audio control. Jace Galicia DO PGY I Attending Provider Attestation/Addendum I have personally seen and examined the patient separately on the above date of service and discussed the plan of care with the resident. I reviewed the resident consultation progress note and agree with the resident findings and plan in the note above and have also edited the documentation to reflect my findings and plan. Adonis Aguiar M.D. Interventional Cardiology
--- NOTE | 2025-05-30 23:41 | ESPR_ITS ---
Documentation for date of: 05/30/25 Subjective Subjective Interval history: Patient was seen in telemetry today. No seizures/new symptoms reported overnight Exam - Neurology Vital Signs Temp Pulse Resp BP Pulse Ox O2 Del Method O2 Flow Rate 97.6 F 65 18 93/54 L 99 Nasal Cannula 2 05/30/25 20:00 05/30/25 22:47 05/30/25 22:25 05/30/25 22:47 05/30/25 22:25 05/30/25 20:00 05/30/25 22:25 FiO2 35 05/29/25 01:45 Narrative Exam General Appearance: Alert & Oriented X0, well-nourished who is lying in bed in no acute distress, saturating on 2 liters at 96%, no increased work of breathing noted HEENT: Skull symmetrical and atraumatic. Conjunctivae pin and moist. Pupils equal, round, reactive to light and accommodation (PERRL). External ear without lesion or discharge. Straight, nares patient, mucosa pink, no discharge. No thyroid nodule appreciated. No cervical lymphadenopathy. Cardio: Normal Rate and Rhythm with S1 and S2 heart sounds. No murmurs or extra heart sounds auscultated. No bruits on carotid auscultation. No peripheral edema or cyanosis. Lungs: Symmetric with good expansion. Chest and back non-tender. Decreased breath sounds noted wtih rhonchi. Abdomen: Non-tender, Non-distended, Normal Reactive Bowel Sounds Neuro: Alert, noncooperative, not oriented to person place or time, non-verbal as at baseline, withdrawals to painful stimuli, contracted in all 4 extremities Limited exam Objective Labs 05/31/25 09:47 06/01/25 05:18 Labs: Laboratory Results - last 24 hr 05/30/25 05:26 WBC 5.2 RBC 4.39 Hgb 14.4 D Hct 43.2 MCV 98 MCH 32.8 MCHC 33.3 RDW Std Deviation 51.5 H Plt Count 298 D Neut % (Auto) 52 Lymph % (Auto) 33 [place] % (Auto) 12 Eos % (Auto) 1 Baso % (Auto) 2 Neut # (Auto) 2.7 Lymph # (Auto) 1.7 [place] # (Auto) 0.6 Eos # (Auto) 0.1 Baso # (Auto) 0.1 Immature Gran # (Auto) 0.03 H Absolute Nucleated RBC 0.00 Immature Gran % 1 H Nucleated RBC % 0 Sodium 143 Potassium 3.6 Chloride 101 Carbon Dioxide 30.7 Anion Gap 11 BUN 6 L Creatinine 0.7 Estim Creat Clear Calc 46.9 L eGFR > 60 BUN/Creatinine Ratio 9 L Glucose 91 Calculated Osmolality 282 Calcium 9.8 Corrected Calcium 9.9 Phosphorus 2.9 Magnesium 2.1 Total Bilirubin 0.2 L AST 28 ALT 14 Alkaline Phosphatase 125 H Total Protein 6.8 Albumin 3.9 D Globulin 2.9 Albumin/Globulin Ratio 1.3 ABG Interpretation ABG results: 05/23/25 05/26/25 19:00 02:33 ABG pH 7.38 7.43 ABG pCO2 55 H 48 ABG pO2 99 87 ABG HCO3 33 H 32 H ABG O2 Saturation 98 98 ABG Base Excess 6 H 6 H Assessment & Plan Assessment and plan (1) Seizure: Status: Acute (2) Pneumonia: Status: Acute Additional Assessment & Plan Additional Plan: (1) Seizure: Status: Acute Assessment and plan: Continue with Keppra and Xcopri Follow seizure precautions and continue to monitor for any breakthrough seizures (2) Pneumonia: Status: Acute Assessment and plan: Continue with the current IV antibiotics Continue to monitor for respiratory distress from hypoxia
[2025-05-31] VITALS (17 sets, daily range): BP systolic 92–120; BP diastolic 54–72; PULSE 61–84; RESP 12–23; TEMP 36.1–36.2; O2SAT 90–100; BMI 21.1
[2025-05-31] MEDS: LEVALBUTEROL RT 1.25 MG/0.5 ML NEBU INH ×3 (06:12→22:38)
[2025-05-31] MEDS: ACETYLCYSTEINE RT SOL 10% 4 ML NEBU 3 ML INH ×3 (06:12→22:37)
[2025-05-31] MEDS: MIDODRINE 5 MG TABLET PO ×3 (07:32→21:57)
[2025-05-31] MEDS: LEVOTHYROXINE SODIUM 25 MCG TABLET 75 MCG PO (07:33)
[2025-05-31] MEDS: NYSTATIN PWD 15 GM BTL TOP ×3 (07:33→21:58)
[2025-05-31] MEDS: FUROSEMIDE INJ 10 MG/ML VIAL 2 ML 20 MG IVP (09:36)
[2025-05-31] MEDS: levETIRAcetam INJ 100 MG/ML VIAL 5ML 1500 MG IVP ×2 (09:38→21:31)
[2025-05-31] MEDS: ENOXAPARIN SOD INJ 40 MG/0.4 ML SYRINGE SC (09:39)
[2025-05-31 10:25] LABS: Basophils # (Auto) 0.1 Thou/mm3 (0.0-0.2); Basophils % (Auto) 2 % (0-2.5); Eosinophils # (Auto) 0.1 Thou/mm3 (0.0-0.5); Eosinophils % (Auto) 1 % (0-10); Hematocrit 41.1 % (36.0-46.0); Hemoglobin 13.5 g/dL (12.0-16.0); Immature Granulocytes Auto 0.04 Thou/mm3 (0.00-0.00); Lymphocytes # (Auto) 1.6 Thou/mm3 (1.0-4.8); Lymphocytes % (Auto) 29 % (10-50); Mean Corpuscular HGB Conc 32.8 g/dl (31.0-37.0); Mean Corpuscular Hemoglobin 32.1 pg (25.0-35.0); Mean Corpuscular Volume 98 fL (80-100); Monocytes # (Auto) 0.9 Thou/mm3 (0.0-0.8); Monocytes % (Auto) 16 % (0-12); Neutrophils # (Auto) 2.8 Thou/mm3 (1.8-7.7); Neutrophils % (Auto) 51 % (37-80); Nucleated Red Blood Cell # 0.00 Thou/mm3 (0.00-0.00); Nucleated Red Blood Cell % 0 /100 WBC (0); Platelet Count 350 Thou/mm3 (140-440); RDW Standard Deviation 51.5 fL (36.4-46.3); Red Blood Count 4.20 Miln/mm3 (4.00-5.20); White Blood Count 5.4 Thou/mm3 (3.6-11.0)
[2025-05-31 12:10] LABS: Alanine Aminotransferase 13 U/L (10-49); Albumin, Serum 3.7 gm/dL (3.4-4.8); Albumin/Globulin Ratio 1.5 (1.2-2.2); Alkaline Phosphatase 111 U/L (46-116); Anion Gap 8 (7-16); Aspartate Amino Transferase 27 U/L (0-34); BUN/Creatinine Ratio 11 Ratio (12-20); Bilirubin,Total 0.3 mg/dL (0.3-1.2); Blood Urea Nitrogen 9 mg/dL (9-23); Calcium 9.3 mg/dL (8.3-10.6); Calcium (Corrected) 9.5 mg/dL (8.5-10.1); Carbon Dioxide 34.0 mMol/L (20.0-31.0); Chloride 103 mMol/L (98-107); Creatinine (Component) 0.8 mg/dL (0.6-1.3); Estimated Creatinine Clearance 41.0 mL/min (>60); Globulin 2.5 gm/dL (2.3-3.5); Glucose 132 mg/dL (74-106); Magnesium 2.1 mg/dL (1.6-2.6); Osmolality,Calculated 289 (275-295); Phosphorous 3.5 mg/dL (2.4-5.1); Potassium 3.5 mMol/L (3.4-5.1); Sodium 145 mMol/L (136-145); Total Protein 6.2 gm/dL (5.7-8.2); eGFR > 60 See Note
--- NOTE | 2025-05-31 14:44 | ESPR_ITS ---
Documentation for date of: 05/31/25 Subjective Subjective Interval history: 05/31/2025: Patient was seen sitting in her bed comfortably, and examined. No acute events took place overnight. Pt is aware of the presence of this examiner in the room and tracks with her her eyes, though she doesn't respond to questions asked from her. Patient had soft blood pressures in the mid 90s/50s to 70s after 8 PM yesterday and continuing into the morning of today. She continues to be diuresed with Lasix 20 mg daily for significant pleural effusions secondary to pneumonia. In the setting of soft blood pressures, she receives PO midodrine 5 mg 3 times daily. Patient did not have an episode of bradycardia overnight and has been stable with heart rate above 65 throughout the day BP 110/58, HR 65, RR 14, T90 7F, O2 98 on NC 2 L. Labs: WBC 5.4, Hgb 13.5, HCO3 34 glucose 132 K+ 3.5, Mg 2.1 Exam Vital Signs Temp Pulse Resp BP Pulse Ox O2 Del Method O2 Flow Rate 97.0 F 65 14 110/58 L 98 Nasal Cannula 2 05/31/25 12:00 05/31/25 14:24 05/31/25 14:24 05/31/25 14:18 05/31/25 14:24 05/31/25 12:00 05/31/25 14:24 FiO2 35 05/29/25 01:45 Narrative Exam General: Currently seen on BiPAP, patient is sleepy but arousable. Skin: Intact, no cyanosis or edema noted. Noted erythematous patch around patient's neck, possibly fungal infection. HEENT: Atraumatic/normocephalic, LONNY, neck supple Heart: RRR, S1 and S2 without clicks or murmurs Lungs: Noted crackles bilaterally on auscultation, left-sided crackles in middle and basal zones. Currently on BiPAP. Abdomen: Soft, nontender. Bowel sounds present . Vascular: Peripheral pulses palpable Neuro: No focal neurological deficits noted. Unable to completely assess her mental function due to mental status. Objective Labs 05/31/25 09:47 06/01/25 05:18 Labs: Laboratory Results - last 24 hr 05/26/25 05/31/25 05/31/25 07:54 09:47 11:10 WBC 5.4 RBC 4.20 Hgb 13.5 Hct 41.1 MCV 98 MCH 32.1 MCHC 32.8 RDW Std Deviation 51.5 H Plt Count 350 D Neut % (Auto) 51 Lymph % (Auto) 29 [place] % (Auto) 16 H Eos % (Auto) 1 Baso % (Auto) 2 Neut # (Auto) 2.8 Lymph # (Auto) 1.6 [place] # (Auto) 0.9 H Eos # (Auto) 0.1 Baso # (Auto) 0.1 Immature Gran # (Auto) 0.04 H Absolute Nucleated RBC 0.00 Immature Gran % 1 H Nucleated RBC % 0 Sodium 145 Potassium 3.5 Chloride 103 Carbon Dioxide 34.0 H Anion Gap 8 BUN 9 Creatinine 0.8 Estim Creat Clear Calc 41.0 L eGFR > 60 BUN/Creatinine Ratio 11 L Glucose 132 H Calculated Osmolality 289 Calcium 9.3 Corrected Calcium 9.5 Phosphorus 3.5 Magnesium 2.1 Total Bilirubin 0.3 AST 27 ALT 13 Alkaline Phosphatase 111 Total Protein 6.2 Albumin 3.7 Globulin 2.5 Albumin/Globulin Ratio 1.5 Misc Test Result See Sep Rpt ABG Interpretation ABG results: 05/23/25 05/26/25 19:00 02:33 ABG pH 7.38 7.43 ABG pCO2 55 H 48 ABG pO2 99 87 ABG HCO3 33 H 32 H ABG O2 Saturation 98 98 ABG Base Excess 6 H 6 H Quality Measures Quality Measures VTE prophylaxis Advance care planning discussed with:: other Assessment & Plan Assessment Current Active Medications: Generic Name Dose Route Start Last Admin Trade Name Freq PRN Reason Stop Dose Admin Acetaminophen 650 mg 05/23/25 20:44 Acetaminophen Supp 650 Mg Supp PA 06/22/25 20:43 Q6HR PRN Fever > 100.4 or pain Acetylcysteine 3 ml 05/26/25 15:00 05/31/25 14:22 Acetylcysteine Rt [place] 10% 4 Ml Nebu INH 06/25/25 14:59 3 ml Q8HRRT JERRY Administration Atropine Sulfate 1 mg 05/26/25 08:11 Atropine Sulf Inj 0.1 Mg/Ml Syr 10 Ml IVP 06/25/25 02:08 Q10MIN PRN bradycardia Cefuroxime Axetil 500 mg 05/30/25 21:00 05/31/25 09:39 Cefuroxime Axetil 250 Mg Tablet PO 06/03/25 23:00 500 mg BID JERRY Administration Xcopri 100 Mg Tablet 0 ea 05/24/25 21:00 05/30/25 22:49 PO 06/23/25 20:59 Not Given HS JERRY Dextrose 50 ml 05/26/25 18:07 Dextrose 50%-Water Inj 50 Ml Syringe IV 06/25/25 18:06 Q15MIN PRN BG <50 OR BG <70 & pt unresponsive Dextrose 25 ml 05/26/25 18:07 Dextrose 50%-Water Inj 50 Ml Syringe IV 06/25/25 18:06 Q15MIN PRN BG 50-70 responsive npo pt Enoxaparin Sodium 40 mg 05/24/25 09:00 05/31/25 09:39 Enoxaparin Sod Inj 40 Mg/0.4 Ml Syringe SC 06/07/25 08:59 40 mg QDAY JERRY Administration Furosemide 20 mg 05/27/25 09:00 05/31/25 09:36 Furosemide Inj 10 Mg/Ml Vial 2 Ml IVP 06/26/25 08:59 20 mg QDAY JERRY Administration Glucagon 1 mg 05/26/25 18:07 Glucagon Inj 1 Mg Vial IM Q15MIN PRN BG <70, and no IV access Levalbuterol HCl 1.25 mg 05/26/25 15:00 05/31/25 14:22 Levalbuterol Rt 1.25 Mg/0.5 Ml Nebu INH 06/25/25 14:59 1.25 mg Q8HRRT JERRY Administration Levetiracetam 1,500 mg 05/24/25 21:00 05/31/25 09:38 Levetiracetam Inj 100 Mg/Ml Vial 5ml IVP 06/23/25 20:59 1,500 mg Q12HR JERRY Administration Levothyroxine Sodium 75 mcg 05/29/25 06:00 05/31/25 07:33 Levothyroxine Sodium 25 Mcg Tablet PO 06/28/25 05:59 75 mcg ACBR JERRY Administration Midodrine 5 mg 05/29/25 14:00 05/31/25 14:18 Midodrine 5 Mg Tablet PO 06/27/25 13:59 5 mg TID JERRY Administration Nystatin 0 gm 05/24/25 14:00 05/31/25 14:19 Nystatin Pwd 15 Gm Btl TOP 06/23/25 13:59 1 applicatio TID JERRY Administration Ondansetron HCl 4 mg 05/23/25 20:44 Ondansetron Inj 2 Mg/Ml Inj 2 Ml IVP 06/22/25 20:43 Q6H PRN NAUSEA OR VOMITING Protocol Sodium Chloride 3 ml 05/26/25 09:41 05/26/25 22:23 Sodium Chloride Rt [place] 0.9% 3 Ml Nebu INH 06/25/25 09:40 3 ml PRN PRN Administration SOLN Plan Lillie Jensen is 70F with MHx Down's syndrome, HFpEF, seizure disorder, asthma, hypothyroidism who presented to the ED on 05/23/2025 having had two seizures back to back without a return to baseline during the previous 24h, difficulty breathing, and hypoxemia. She was admitted for inpatient management of her breakthrough seizures and acute hypoxic respiratory failure likely secondary to pneumonia and bilateral large pleural effusions Problems: 1. Bradycardia 2. Bilateral pleural effusions 3. Pneumonia 4. HFpEF 5. Hypothyroidism 6. Acute hypoxic respiratory failure 9. Seizures 10. History of Down syndrome 11. History of fast Patient was admitted following breakthrough seizures, and altered mental status following recurrent seizures, also noted to have breathing difficulty, admitted with acute hypoxic respiratory failure initial imaging showed bilateral large pleural effusions, CTA chest showed large Lt sided and moderate Rt sided pleural effusion. Mild heart failure and was negative for PE. patient was diuresed initially which led to improvement in pleural effusion, still has large left-sided pleural effusion, also noted to have pneumonia, infectious disease consultation to Dr Meier is placed, ID following. Started on ceftriaxone and fluconazole. Pending coccidiomycosis serology. Prior echocardiogram shows normal LV size and function normal EF, concern for diastolic dysfunction, bilateral pleural effusions possibly due to diastolic heart failure, agree with diuresing, as noted improvement following diuresis. Possible differentials include parapneumonic effusion, thoracentesis was ordered but unable to find enough fluid for thoracentesis by IR. Of note patient had recent admission for pneumonia and ICU stay for hypotension. Rapid response was called on 05/26/2025 at 1:27 AM for hypotension and bradycardia, noted heart rate 33 and MAP 47, received IV fluids 500 mL LR x 2, which improved blood pressure, EKG at the time showed sinus bradycardia, also noted T wave inversions which are consistent with prior EKG. Transient hypotension due to decreased intravascular volume which improved after fluid boluses, bradycardia likely occurred during sleep. Echo 05/16: Normal LV size and function. There is grade I diastolic dysfunction. Estimated EF at 55-60%. The RV is normal in size and systolic function. The estimated RVSP, 42 mmHg. RAP 5. Trace TR. Seizure activity is being managed by neurologist Dr. Mendoza. Pt is on Keppra IV 1.5g BID and XCorpi PO 100mg QD at home. Pt has lost >10L cumulative I&O since her admission 05/23. CT of the chest (05/28) was positive for extensive pneumonia left lung, pericardial effusion measuring up to 11mm, mild enlargement of the cardiac contour, moderate to large left pleural effusion, and mild to moderate right pleural effusion. Choice of antibiotics was changed by infectious disease from Rocephin to cefuroxime PO 500 mg twice daily. Free T4 .88 Recommendations: -Overnight telemetry reviewed, patient had HR above 65 consistently. Consider proceeding with ACLS bradycardia algorithm if patient has symptomatic bradycardia again. -Pt is on midodrine PO 5mg TID, consider adding holding parameters for midodrine as it can cause bradycardia. -Pt is being diuresed with Lasix IV 20mg QD for marked pleural effusions -Fluid restriction 1.5L daily with strict I&O -keep K+ >4 and Mg >2 at all times Thank you for cardiology consultation. We appreciate the opportunity to participate in this patient's care. Will continue to follow-up on this patient This case was discussed with my attending physician, Dr. Aguiar, medical anthropologist. Jace Galicia DO PGY I Attending Provider Attestation/Addendum I have personally seen and examined the patient separately on the above date of service and discussed the plan of care with the resident. I reviewed the resident Dr. Mccormick consultation progress note and agree with the resident findings and plan in the note above and have also edited the documentation to reflect my findings and plan. Adonis Aguiar M.D. Interventional Cardiology
--- NOTE | 2025-05-31 14:53 | ESPR_ITS ---
<Statement entered by Catina Schwartz MD - 05/31/25 17:45> I have reviewed the note and agree with the resident's assessment & plan with exceptions as below. I have personally reviewed labs, imaging, home meds/prior records, examined the patient, formulated and discussed management plan with the IM team. Patient examined at bedside today. No acute overnight events. Pending appeal discharge, will speak with social work team. Continue current management. Catina Schwartz, PGY-2 Internal Medicine Documentation for date of: 05/31/25 Subjective Subjective Interval history: Overnight patient had soft bp of 93/54, asymptomatic. Patient seen and examined at bedside. Patient was saturating well on 4L NC this morning. Vitals and labs reviewed. This morning patient was more alert and was looking around while I was examining her and was occasionally giggling. Exam Vital Signs Temp Pulse Resp BP Pulse Ox O2 Del Method O2 Flow Rate 97.0 F 65 14 110/58 L 98 Nasal Cannula 2 05/31/25 12:00 05/31/25 14:24 05/31/25 14:24 05/31/25 14:18 05/31/25 14:24 05/31/25 12:00 05/31/25 14:24 FiO2 35 05/29/25 01:45 Narrative Exam Gen: Down syndrome. Does not verbally respond, eyes open spontaneously and track. HEENT: NCAT, PERRLA, EOMI, MMM, anicteric conjunctivae. Appears to have fungal infection along neck/back, much improving, now it is light pink with much less erythema. CVS: normal S1 and S2. RRR. No M/R/G. Resp: 4L NC, Lung Clear with occasional coarse sounds Abd: soft, non-tender, non-distended. BS+ in all 4 quadrants. MSK: Neck/inner thigh erythematous rash. Right shoulder bruise improved, due to heparin injection according to caregiver. Neuro: Does withdraw from pain. Responds to name. Does not follow commands. Objective Labs 05/31/25 09:47 06/01/25 05:18 Labs: Laboratory Results - last 24 hr 05/26/25 05/31/25 05/31/25 07:54 09:47 11:10 WBC 5.4 RBC 4.20 Hgb 13.5 Hct 41.1 MCV 98 MCH 32.1 MCHC 32.8 RDW Std Deviation 51.5 H Plt Count 350 D Neut % (Auto) 51 Lymph % (Auto) 29 [place] % (Auto) 16 H Eos % (Auto) 1 Baso % (Auto) 2 Neut # (Auto) 2.8 Lymph # (Auto) 1.6 [place] # (Auto) 0.9 H Eos # (Auto) 0.1 Baso # (Auto) 0.1 Immature Gran # (Auto) 0.04 H Absolute Nucleated RBC 0.00 Immature Gran % 1 H Nucleated RBC % 0 Sodium 145 Potassium 3.5 Chloride 103 Carbon Dioxide 34.0 H Anion Gap 8 BUN 9 Creatinine 0.8 Estim Creat Clear Calc 41.0 L eGFR > 60 BUN/Creatinine Ratio 11 L Glucose 132 H Calculated Osmolality 289 Calcium 9.3 Corrected Calcium 9.5 Phosphorus 3.5 Magnesium 2.1 Total Bilirubin 0.3 AST 27 ALT 13 Alkaline Phosphatase 111 Total Protein 6.2 Albumin 3.7 Globulin 2.5 Albumin/Globulin Ratio 1.5 Misc Test Result See Sep Rpt ABG Interpretation ABG results: 05/23/25 05/26/25 19:00 02:33 ABG pH 7.38 7.43 ABG pCO2 55 H 48 ABG pO2 99 87 ABG HCO3 33 H 32 H ABG O2 Saturation 98 98 ABG Base Excess 6 H 6 H Quality Measures Quality Measures VTE prophylaxis Advance care planning discussed with:: patient and other Assessment & Plan Assessment Current Active Medications: Generic Name Dose Route Start Last Admin Trade Name Freq PRN Reason Stop Dose Admin Acetaminophen 650 mg 05/23/25 20:44 Acetaminophen Supp 650 Mg Supp MD 06/22/25 20:43 Q6HR PRN Fever > 100.4 or pain Acetylcysteine 3 ml 05/26/25 15:00 05/31/25 14:22 Acetylcysteine Rt [place] 10% 4 Ml Nebu INH 06/25/25 14:59 3 ml Q8HRRT JERRY Administration Atropine Sulfate 1 mg 05/26/25 08:11 Atropine Sulf Inj 0.1 Mg/Ml Syr 10 Ml IVP 06/25/25 02:08 Q10MIN PRN bradycardia Cefuroxime Axetil 500 mg 05/30/25 21:00 05/31/25 09:39 Cefuroxime Axetil 250 Mg Tablet PO 06/03/25 23:00 500 mg BID JERRY Administration Xcopri 100 Mg Tablet 0 ea 05/24/25 21:00 05/30/25 22:49 PO 06/23/25 20:59 Not Given HS JERRY Dextrose 50 ml 05/26/25 18:07 Dextrose 50%-Water Inj 50 Ml Syringe IV 06/25/25 18:06 Q15MIN PRN BG <50 OR BG <70 & pt unresponsive Dextrose 25 ml 05/26/25 18:07 Dextrose 50%-Water Inj 50 Ml Syringe IV 06/25/25 18:06 Q15MIN PRN BG 50-70 responsive npo pt Enoxaparin Sodium 40 mg 05/24/25 09:00 05/31/25 09:39 Enoxaparin Sod Inj 40 Mg/0.4 Ml Syringe SC 06/07/25 08:59 40 mg QDAY JERRY Administration Furosemide 20 mg 05/27/25 09:00 05/31/25 09:36 Furosemide Inj 10 Mg/Ml Vial 2 Ml IVP 06/26/25 08:59 20 mg QDAY JERRY Administration Glucagon 1 mg 05/26/25 18:07 Glucagon Inj 1 Mg Vial IM Q15MIN PRN BG <70, and no IV access Levalbuterol HCl 1.25 mg 05/26/25 15:00 05/31/25 14:22 Levalbuterol Rt 1.25 Mg/0.5 Ml Nebu INH 06/25/25 14:59 1.25 mg Q8HRRT JERRY Administration Levetiracetam 1,500 mg 05/24/25 21:00 05/31/25 09:38 Levetiracetam Inj 100 Mg/Ml Vial 5ml IVP 06/23/25 20:59 1,500 mg Q12HR JERRY Administration Levothyroxine Sodium 75 mcg 05/29/25 06:00 05/31/25 07:33 Levothyroxine Sodium 25 Mcg Tablet PO 06/28/25 05:59 75 mcg ACBR JERRY Administration Midodrine 5 mg 05/29/25 14:00 05/31/25 14:18 Midodrine 5 Mg Tablet PO 06/27/25 13:59 5 mg TID JERRY Administration Nystatin 0 gm 05/24/25 14:00 05/31/25 14:19 Nystatin Pwd 15 Gm Btl TOP 06/23/25 13:59 1 applicatio TID JERRY Administration Ondansetron HCl 4 mg 05/23/25 20:44 Ondansetron Inj 2 Mg/Ml Inj 2 Ml IVP 06/22/25 20:43 Q6H PRN NAUSEA OR VOMITING Protocol Sodium Chloride 3 ml 05/26/25 09:41 05/26/25 22:23 Sodium Chloride Rt [place] 0.9% 3 Ml Nebu INH 06/25/25 09:40 3 ml PRN PRN Administration SOLN Plan Lillie Jensen is a 70 F with PMHx significant for Down syndrome, seizures, asthma, hypothyroidism presenting to the ED obtunded in post-ictal state, admitted for breakthrough seizures and significant pleural effusion. Pending Bipap for snf. #Mucous plug? #Atelectasis #Pleural Effusions Patient is saturating and breathing much better after BIPAP, possibly due to clearing mucous plug or some bronchogenic mass. FUP CXR showed partial left lung re-expansion, was total opacification on prior CXR from earlier that night. Bilateral pleural effuisions found on CTAP, too minimal to drain per IR. 05/28: CXR showed Significant left lung pneumonia; Mild pneumonia right base; Significant left pleural fluid again depicted 05/28: CT Chest: Extensive pneumonia left lung; Moderate to large left pleural effusion; Mild to moderate right pleural effusion -Continue BIPAP at night. -Chest PT -Levalbuterol -Lasix 20mg IV q day -Continue to monitor for signs of respiratory distress #PNA with significant pleural effusion #Asthma Patient was discharged from [facility] 05/20 after being treated for pneumonia. Caregiver reports patient is continue to have difficulty breathing. Chest CTA showed large left pleural effusion and moderate right pleural effusion. Patient saturating well on 2 L via nasal cannula. Significant rhonchi on exam. Unclear if pneumonia with failure of treatment or new HAP. 05/25: MRSA nares negative -> discontinued Vancomycin; Cocci Negative; Thoracentesis Not done, minimal bilateral pleural effusions 05/28: Blood cultures Negative, Cocci negative stopped fluconazole - ID stopped Rocephin, Started Cefuroxime 500 mg po bid - O2 as needed maintain sats 92% - Lasix 20mg IV q day - Suctioning as needed - Chest PT as needed - DuoNebs as needed - Medical Staff Credentialing Coordinator Dr. Zamorano consulted: recommends bronchoscopy outpatient #Bradycardia #IT NETWORK ARCHITECT Rapid was called during power and recovery shift engineer 05/26 for bradycardia:33 HR MAP: 47. Atropine, LR and albumin given. 05/28: Patient passed swallow Eval, will restart midodrine Plan: -On tele -Atropine IVP Q10min PRN for symptomatic bradycardia -Midodrine 5mg PO TID -Cards consulted, recs appreciated #Breakthrough seizures #Seizure disorder Patient has known history of seizure disorder. Per caregiver, patient 2 witnessed tonic-clonic seizures in 24 hours prior to admission. Patient does not appear to have fully recovered back to baseline, per chart review patient at baseline is able to answer simple yes/no questions. Currently patient eyes open spontaneously, tracks, but does not verbally respond, does not follow commands. Patient follows with Dr. Mendoza outpatient. Patient received 1 g Keppra and 4 mg Versed in ED. - Dr. Mendoza consulted, appreciate recommendations - Keppra 1500 mg IV q12hr, will switch to oral - Xcorpi 100 mg po qd will be delivered and given from care professionals (non- formulary). - EEG: Abnormal w/ diffuse slowing with questionable spike and wave activity noted in bilateral, frontal, central, and temporal areas consistent with seizure disorder. - Seizure precautions - Telemonitoring #HFpEF Echo done 05/16/2025 showing grade I diastolic dysfunction. Estimated EF at 55- 60%, estimated RVSP, 42 mmHg. Patient has some signs of fluid overload. - Strict I/O's - Weights qd - Fluid Restriction 1500 ml - Cardiology consulted #Hypoglycemia-resolved Patient passed swallow eval 05/28. Has low blood sugars over night Plan -D50 PRN #Hepatitis B Surface Antigen Reactive Recent hx Hep B surface antigen reactivity on 05/16/2025 Hep B Viral load ordered and came back negative, undetected. #Fungal infection Patient has large erythematous rash with small whitish plaques along base of neck and inner thighs, appears to be fungal rash. Improving 05/26, much less erythema, perimeter is much smaller, still circumfential around neck and in folds of skin. - Topical nystatin - Wound care #Hypothyroidism Patient history as stated. Patient passed swallow eval, will start home PO Levothyroxine. 05/28: FT4 0.88 (0.79) -Restarted home Levothyroxine 75 mcg PO ACBR DVT prophylaxis: Lovenox GI prophylaxis: None Diet: Passed swallow - On Dysphagia 1 Lines: Peripheral IV Code status: Full code Patient plan of care was discussed with the attending physician, Dr. Basurto & senior resident Dr. Lana Coleman MD PGY-1 Attending Provider Attestation/Addendum I reviewed labs, imaging, EKG, home medications and prior available records. Face to face evaluation was performed by me. I have personally examined the patient and discussed assessment and plan with the IM team. I reviewed the resident note and agree with the plan with exceptions as below. Breakthrough seizures Acute hypoxic respiratory failure HFpEF Left-sided pneumonia Bilateral pleural effusions Bradycardia, resolved Hyperactive delirium Continue Keppra and Xcorpi Continue diuresis Consulted ID: Recommended cefuroxime Continue nasal cannula/BiPAP as needed Monitor heart rate: Stable Discussed hypoactive delirium with neurology: No need for medication adjustment Continue oxygen therapy at home Caregiver appealed the discharge. Pending insurance decision
--- NOTE | 2025-05-31 21:06 | PD.NEUROPROG ---
Documentation for date of: 05/31/25 Subjective Subjective Interval history: Patient was seen in telemetry today. No seizures/new symptoms reported overnight Exam - Neurology Vital Signs Temp Pulse Resp BP Pulse Ox O2 Del Method O2 Flow Rate 97.0 F 84 23 H 94/54 L 90 L Nasal Cannula 2 05/31/25 20:00 05/31/25 20:00 05/31/25 20:00 05/31/25 20:00 05/31/25 20:00 05/31/25 20:00 05/31/25 20:00 FiO2 35 05/29/25 01:45 Narrative Exam General Appearance: Alert & Oriented X0, well-nourished who is lying in bed in no acute distress, saturating on 2 liters at 96%, no increased work of breathing noted HEENT: Skull symmetrical and atraumatic. Conjunctivae pin and moist. Pupils equal, round, reactive to light and accommodation (PERRL). External ear without lesion or discharge. Straight, nares patient, mucosa pink, no discharge. No thyroid nodule appreciated. No cervical lymphadenopathy. Cardio: Normal Rate and Rhythm with S1 and S2 heart sounds. No murmurs or extra heart sounds auscultated. No bruits on carotid auscultation. No peripheral edema or cyanosis. Lungs: Symmetric with good expansion. Chest and back non-tender. Decreased breath sounds noted wtih rhonchi. Abdomen: Non-tender, Non-distended, Normal Reactive Bowel Sounds Neuro: Alert, noncooperative, not oriented to person place or time, non-verbal as at baseline, withdrawals to painful stimuli, contracted in all 4 extremities Limited exam Objective Labs 05/31/25 09:47 06/01/25 05:18 Labs: Laboratory Results - last 24 hr 05/26/25 05/31/25 05/31/25 07:54 09:47 11:10 WBC 5.4 RBC 4.20 Hgb 13.5 Hct 41.1 MCV 98 MCH 32.1 MCHC 32.8 RDW Std Deviation 51.5 H Plt Count 350 D Neut % (Auto) 51 Lymph % (Auto) 29 [place] % (Auto) 16 H Eos % (Auto) 1 Baso % (Auto) 2 Neut # (Auto) 2.8 Lymph # (Auto) 1.6 [place] # (Auto) 0.9 H Eos # (Auto) 0.1 Baso # (Auto) 0.1 Immature Gran # (Auto) 0.04 H Absolute Nucleated RBC 0.00 Immature Gran % 1 H Nucleated RBC % 0 Sodium 145 Potassium 3.5 Chloride 103 Carbon Dioxide 34.0 H Anion Gap 8 BUN 9 Creatinine 0.8 Estim Creat Clear Calc 41.0 L eGFR > 60 BUN/Creatinine Ratio 11 L Glucose 132 H Calculated Osmolality 289 Calcium 9.3 Corrected Calcium 9.5 Phosphorus 3.5 Magnesium 2.1 Total Bilirubin 0.3 AST 27 ALT 13 Alkaline Phosphatase 111 Total Protein 6.2 Albumin 3.7 Globulin 2.5 Albumin/Globulin Ratio 1.5 Misc Test Result See Sep Rpt ABG Interpretation ABG results: 05/23/25 05/26/25 19:00 02:33 ABG pH 7.38 7.43 ABG pCO2 55 H 48 ABG pO2 99 87 ABG HCO3 33 H 32 H ABG O2 Saturation 98 98 ABG Base Excess 6 H 6 H Assessment & Plan Assessment and plan (1) Seizure: Status: Acute (2) Pneumonia: Status: Acute Additional Assessment & Plan Additional Plan: (1) Seizure: Status: Acute Assessment and plan: Continue with Keppra and Xcopri Follow seizure precautions and continue to monitor for any breakthrough seizures (2) Pneumonia: Status: Acute Assessment and plan: Continue with the current IV antibiotics Continue to monitor for respiratory distress from hypoxia
[2025-05-31] MEDS: XCOPRI 100 MG PO (21:32)
[2025-06-01] VITALS (9 sets, daily range): BP systolic 91–114; BP diastolic 54–65; PULSE 56–77; RESP 16–20; TEMP 36–36.4; O2SAT 98–100; BMI 21.2
[2025-06-01] MEDS: NYSTATIN PWD 15 GM BTL TOP (06:01)
[2025-06-01] MEDS: LEVOTHYROXINE SODIUM 25 MCG TABLET 75 MCG PO (06:03)
[2025-06-01 06:42] LABS: Alanine Aminotransferase 10 U/L (10-49); Albumin, Serum 3.1 gm/dL (3.4-4.8); Albumin/Globulin Ratio 1.3 (1.2-2.2); Alkaline Phosphatase 92 U/L (46-116); Anion Gap 9 (7-16); Aspartate Amino Transferase 16 U/L (0-34); BUN/Creatinine Ratio 18 Ratio (12-20); Bilirubin,Total 0.2 mg/dL (0.3-1.2); Blood Urea Nitrogen 14 mg/dL (9-23); Calcium 9.0 mg/dL (8.3-10.6); Calcium (Corrected) 9.7 mg/dL (8.5-10.1); Carbon Dioxide 33.2 mMol/L (20.0-31.0); Chloride 104 mMol/L (98-107); Creatinine (Component) 0.8 mg/dL (0.6-1.3); Estimated Creatinine Clearance 41.0 mL/min (>60); Globulin 2.3 gm/dL (2.3-3.5); Glucose 100 mg/dL (74-106); Magnesium 2.3 mg/dL (1.6-2.6); Osmolality,Calculated 291 (275-295); Phosphorous 4.1 mg/dL (2.4-5.1); Potassium 3.8 mMol/L (3.4-5.1); Sodium 146 mMol/L (136-145); Total Protein 5.4 gm/dL (5.7-8.2); eGFR > 60 See Note
[2025-06-01 08:02] LABS: Basophils # (Auto) 0.2 Thou/mm3 (0.0-0.2); Basophils % (Auto) 4 % (0-2.5); Eosinophils # (Auto) 0.1 Thou/mm3 (0.0-0.5); Eosinophils % (Auto) 2 % (0-10); Hematocrit 34.4 % (36.0-46.0); Hemoglobin 11.4 g/dL (12.0-16.0); Immature Granulocytes Auto 0.03 Thou/mm3 (0.00-0.00); Lymphocytes # (Auto) 1.6 Thou/mm3 (1.0-4.8); Lymphocytes % (Auto) 41 % (10-50); Mean Corpuscular HGB Conc 33.1 g/dl (31.0-37.0); Mean Corpuscular Hemoglobin 32.7 pg (25.0-35.0); Mean Corpuscular Volume 99 fL (80-100); Monocytes # (Auto) 0.5 Thou/mm3 (0.0-0.8); Monocytes % (Auto) 13 % (0-12); Neutrophils # (Auto) 1.5 Thou/mm3 (1.8-7.7); Neutrophils % (Auto) 39 % (37-80); Nucleated Red Blood Cell # 0.00 Thou/mm3 (0.00-0.00); Nucleated Red Blood Cell % 0 /100 WBC (0); Platelet Count 336 Thou/mm3 (140-440); RDW Standard Deviation 51.8 fL (36.4-46.3); Red Blood Count 3.49 Miln/mm3 (4.00-5.20); White Blood Count 3.9 Thou/mm3 (3.6-11.0)
[2025-06-01] MEDS: ACETYLCYSTEINE RT SOL 10% 4 ML NEBU 3 ML INH (08:12)
[2025-06-01] MEDS: LEVALBUTEROL RT 1.25 MG/0.5 ML NEBU INH (08:13)
--- NOTE | 2025-06-01 08:27 | PC.SS ---
SS contacted Manjinder Camacho from [facility] to inform of Appeal Denial, he stated he will be here by 12 to pick her up and if RN can call report with C orders to him prior [phone]. SS called Rahel [facility] and informed her of request.
[2025-06-01] MEDS: levETIRAcetam INJ 100 MG/ML VIAL 5ML 1500 MG IVP (09:14)
[2025-06-01] MEDS: ENOXAPARIN SOD INJ 40 MG/0.4 ML SYRINGE SC (09:15)
[2025-06-01] MEDS: FUROSEMIDE INJ 10 MG/ML VIAL 2 ML 20 MG IVP (09:15)
--- NOTE | 2025-06-01 11:53 | ESDS_ITS ---
<Statement entered by Catina Schwartz MD - 06/01/25 14:50> I have reviewed the note and agree with the resident's assessment & plan with exceptions as below. I have personally reviewed labs, imaging, home meds/prior records, examined the patient, formulated and discussed management plan with the IM team. Patient examined at bedside today. Patient medically cleared for discharge. 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 Patient will need to follow-up with a physical therapy coordinator outpatient for evaluation of bronchoscopy for mucous plug or endobronchial lesion. Patient was then discharged with the following structures listed below. Catina Schwartz, PGY-2 Internal Medicine Planned Discharge Date 06/01/25 DS: Providers Provider Date of admission: 05/23/25 20:44 Primary care physician: Rolando Rosas MD Admitting Provider: Usama Kruger MD Attending Provider on Admission: Brandon Basurto MD Consults: 05/23/25 20:50 Consult to Neurology / Tele-Neurology Routine Comment: Christen canchola Consulting Provider: Koby Mendoza 05/23/25 23:49 Referral Wound Care Routine Comment: Infection/rash along neck 05/24/25 08:17 Consult to Infectious Diseases Routine Comment: Consulting Provider: Trev Meier 05/24/25 10:02 Referral Speech Therapy Stat Comment: 05/26/25 08:21 Consult to Glove Sewer Routine Comment: Consulting Provider: Young Ruby I 05/26/25 10:11 Consult to Cardiology Routine Comment: Consulting Provider: Adonis Aguiar Instructions: Bradycardia 05/28/25 13:20 Referral Physical Therapy Routine Comment: Physician Instructions: Attending Provider on DC: Brandon Basurto MD Discharging Provider: Brandon Basurto MD DS: Diagnosis Problem List Completed Was Problem List Reviewed/Reconciled?: Yes Hospital Course Hospital Course Hospital course: A 70-year-old female patient with past medical history of Down syndrome, seizure disorder, asthma, hypothyroidism, was brought to the ED after she was found to have multiple breakthrough seizure. As per the caregiver it was 2 witnessed tonic-clonic seizures. In evaluation patient was found to have multiple breakthrough seizures in which were consulted neurologist Dr Mendoza and she recommended to increase the dose of Keppra to 1500 mg twice daily. Then started the patient on Xcopri. Since patient was started on this regimen patient has not developed any seizure episodes. During his stay we noticed that the patient has bilateral pleural effusion, and also the patient developed left pulmonary atelectasis. We consulted physical therapy coordinator and he recommended to do chest physical therapy and also BiPAP at night as it most likely secondary to mucous plug. We also started the patient on breathing treatment. Following this measures repeat chest x-ray in 2 occasions was negative for any atelectasis at this time however it was still positive for pleural effusion in which it was secondary to her heart failure and would need to be treated only with diuretics. Our in-house physical therapy coordinator recommended that the patient has to follow-up in outpatient settings with a physical therapy coordinator within a week from discharge and then within 4 to 6 weeks from discharge as the patient might need bronchoscopy to rule out endobronchial lesion causing the atelectasis. At this time patient oxygen requirements remains below baseline at 2 L of oxygen. He was able to tolerate feedings well. We noticed that her hepatitis antigen test was positive for that reason we sent for viral load based on the infectious disease recommendations. However results still pending and it can be followed-up in outpatient settings to initiate hepatitis B treatment if viral load above 5000 copies as per the infectious disease recommendations. At this time patient is deemed to be clinically stable for discharge on BiPAP at night with the following instructions: Discharge Instructions Follow-up with your Primay Care Provider within 1 week We are increasing your Keppra, take as prescribed We are prescribing your lasix, take as prescribed Follow up with your neurologist, Dr. Mendoza within one to two weeks Repeat Chest Xray upon your next visit with your Primary Care Provider Follow-up with your Primary Care Provider in regards to your immunity to hepatitis B. Hepatitis B viral load was not detected, however, speak with your Primary Care Provider in regards to immunizations with Hepatitis B at this time. Use BiPAP daily at night to prevent lung collapse, follow-up with the physical therapy coordinator recommendations if it will be needed continuously. Speak with your Primary Care Provider within 4-6 weeks in regards to referral to pulmonology for outpatient bronchoscopy Use BiPAP if available daily at night if not available please have daily chest physical therapy, to prevent lung collapse, follow-up with the physical therapy coordinator recommendations if it will be needed continuously. Follow-up imaging in 4 to 6 weeks to ensure resolution of intraparenchymal process to exclude presence of any endobronchial lesion Use inhaler as needed We are prescribing your Midodrine, take as prescriebd Use nystatin powder for your fungal infection as directed: cleanse neck, buttocks and sylvia area with warm soap and water, pat dry. apply nystatin powder 2-3 times a day for 2 weeks past healing to avoid reoccurring fungal infections. If worsening please see follow up with primary MD. Take your medicines as prescribed Return to ED if your symptoms worsen or return Admission Diagnosis #Seizure disorder #Atelectasis secondary to mucous plug versus endobronchial lesion (require chest physical therapy daily) #Pleural effusion #Community-acquired pneumonia #History of asthma #History of HFpEF #Hypoglycemia #History of hypothyroidism Patient plan of care was discussed with the attending physician, Dr. Basurto & resident physician Dr. Lana Coleman MD PGY-1 Time Spent with Patient Time attestation: Total time spent providing and/or coordinating discharge services: Time spent: Greater than 30 minutes Exam Vital Signs Temp Pulse Resp BP Pulse Ox O2 Del Method O2 Flow Rate 97.0 F 64 16 101/60 100 Nasal Cannula 1 06/01/25 08:00 06/01/25 09:15 06/01/25 08:10 06/01/25 09:15 06/01/25 08:10 06/01/25 08:00 06/01/25 08:10 FiO2 35 06/01/25 00:00 Narrative Exam Gen: Down syndrome. Does not verbally respond, eyes open spontaneously and track. HEENT: NCAT, PERRLA, EOMI, MMM, anicteric conjunctivae. Improvement of fungal infection along neck/back CVS: normal S1 and S2. RRR. No M/R/G. Resp: 1L NC, Lung Clear with occasional coarse sounds Abd: soft, non-tender, non-distended. BS+ in all 4 quadrants. MSK: Neck/inner thigh erythematous rash. Right shoulder bruise improved, due to heparin injection according to caregiver. Neuro: Does withdraw from pain. Responds to name. Does not follow commands. Discharge Plan Plan Patient Disposition: HOME (Self Care) Patient condition on transfer: Stable Care Plan Goals: Discharge instructions Follow-up with your Primay Care Provider within 1 week We are increasing your Keppra, take as prescribed We are prescribing your lasix, take as prescribed Follow up with your neurologist, Dr. Mendoza within one to two weeks Repeat Chest Xray upon your next visit with your Primary Care Provider Follow-up with your Primary Care Provider in regards to your immunity to hepatitis B. Hepatitis B viral load was not detected, however, speak with your Primary Care Provider in regards to immunizations with Hepatitis B at this time. Use BiPAP daily at night to prevent lung collapse, follow-up with the physical therapy coordinator recommendations if it will be needed continuously. Speak with your Primary Care Provider within 4-6 weeks in regards to referral to pulmonology for outpatient bronchoscopy Use BiPAP if available daily at night if not available please have daily chest physical therapy, to prevent lung collapse, follow-up with the physical therapy coordinator recommendations if it will be needed continuously. Follow-up imaging in 4 to 6 weeks to ensure resolution of intraparenchymal process to exclude presence of any endobronchial lesion Use inhaler as needed We are prescribing your Midodrine, take as prescriebd Use nystatin powder for your fungal infection as directed: cleanse neck, buttocks and sylvia area with warm soap and water, pat dry. apply nystatin powder 2-3 times a day for 2 weeks past healing to avoid reoccurring fungal infections. If worsening please see follow up with primary MD. Take your medicines as prescribed Return to ED if your symptoms worsen or return Prescriptions/Referrals Prescriptions/Med Rec: New levetiracetam [Keppra] 750 mg tablet 1,500 mg PO BID 30 Days Qty: 120 0RF Rx Instructions: Take two tablets by mouth twice a day furosemide [Lasix] 20 mg tablet 20 mg PO Q OTHER DAY 14 Days Qty: 7 0RF Rx Instructions: Take one tablet by mouth every other day albuterol sulfate 90 mcg/actuation HFA aerosol inhaler 1 inh inhalation QID PRN (Reason: shortness of breath or wheezing) 30 Days Qty: 6.7 0RF Rx Instructions: Take one puff up to four times a day (DME) Bipap Misc See Rx Instructions .Route Qty: 1 0RF Rx Instructions: As directed midodrine 5 mg tablet 5 mg PO TID 14 Days Qty: 42 0RF Rx Instructions: Take one tablet by mouth three times a day Hold if systolic blood pressure above 110 or heart rate below 60 Continued methenamine hippurate [Hiprex] 1 gram tablet 1 g PO QDAY levothyroxine 75 mcg tablet 75 mcg PO DAILY docusate sodium 100 mg capsule 100 mg PO BID aspirin 81 mg tablet,chewable 81 mg PO DAILY montelukast 10 mg tablet 10 mg PO DAILY loratadine 10 mg tablet 10 mg PO DAILY calcium carbonate-vitamin D3 600 mg-10 mcg (400 unit) tablet 1 tab PO BID cranberry extract [Cranberry Concentrate] 500 mg Capsule 500 mg PO QDAY Rx Instructions: administer with meals polyethylene glycol 3350 17 gram/dose powder 17 g PO QDAY Held quetiapine 100 mg tablet 100 mg PO HS Hold Instructions: Resume on 06/05/25. To be reviewed and resumed by the neurologist Discontinued levetiracetam [Keppra XR] 500 mg Tablet Extended Release 24 Hr 1,000 mg PO QMORNING Rx Instructions: two tablets by mouth in the morning 1000mg three tablets by mouth at bedtime 1500mg Referrals: Rolando Rosas MD [Primary Care Provider] - Koby Mendoza MD [Physician] - Outpatient Orders (i.e. Home Health, Labs, Imaging): XR chest 1V (Routine) Timeframe: 1 Week Location: Determined by Patient Ordered By: Catina Schwartz Patient/Caregiver Discharge Instructions Discharge Activity: activity as tolerated Education Materials: Pleural Effusion, Thoracentesis Dc, Flexible Bronchoscopy, ED Carolyn Diaper Rash Print Language: Citizen Of [place] Stand Alone Forms: Laurie Award Info., Patient Portal Info Letter Discharge Order Discharge Orders: Discharge (Routine); Ordered 05/30/25 Ordered By: Angy Lowe Quality Discharge Quality Measures VTE prophylaxis Attestestation Attestation I reviewed labs, imaging, EKG, home medications and prior available records. Face to face evaluation was performed by me. I have personally examined the patient and discussed assessment and plan with the IM team. I reviewed the resident note and agree with the plan with exceptions as below. Breakthrough seizures Acute hypoxic respiratory failure HFpEF Left-sided pneumonia Bilateral pleural effusions Bradycardia, resolved Hyperactive delirium Continue Keppra and Xcorpi Continue diuresis Finished a course of antibiotics Continue nasal cannula/BiPAP as needed Monitor heart rate: Stable Discussed hypoactive delirium with neurology: No need for medication adjustment Continue oxygen therapy at home Caregiver appealed discharge but insurance declined the appeal Time spent is 35 minutes. More than 50% of the time was spent on patient education and coordination of care.
--- NOTE | 2025-06-01 12:53 | ESPR_ITS ---
Documentation for date of: 06/01/25 Subjective Subjective Interval history: 06/01/2025: Patient was seen sitting in her bed comfortably, and examined. No acute events took place overnight. Pt is aware of the presence of this examiner in the room and tracks with her her eyes, though she doesn't respond to questions asked from her. Patient had soft blood pressures in the mid 90s/50s to 70s after 8 PM yesterday and continuing into the morning of today. She continues to be diuresed with Lasix 20 mg daily for significant pleural effusions secondary to pneumonia. In the setting of soft blood pressures, she receives PO midodrine 5 mg 3 times daily. Patient did not have an episode of bradycardia overnight and has been stable with heart rate above 65 throughout the day BP 98/60, HR 64, RR 16, T 97.6F, O2 100on NC 1 L. Labs: K+ 3.8, Mg 2.3, Cr .8, BUN 14, Exam Vital Signs Temp Pulse Resp BP Pulse Ox O2 Del Method O2 Flow Rate 97.0 F 64 16 101/60 100 Nasal Cannula 1 06/01/25 08:00 06/01/25 09:15 06/01/25 08:10 06/01/25 09:15 06/01/25 08:10 06/01/25 08:00 06/01/25 08:10 FiO2 35 06/01/25 00:00 Narrative Exam General:Patient is sleepy but arousable. Skin: Intact, no cyanosis or edema noted. Noted erythematous patch around patient's neck, possibly fungal infection. HEENT: Atraumatic/normocephalic, LONNY, neck supple Heart: RRR, S1 and S2 without clicks or murmurs Lungs: Diminished breath sounds b/l without crackles Abdomen: Soft, nontender. Bowel sounds present . Vascular: Peripheral pulses palpable Neuro: No focal neurological deficits noted. Unable to completely assess her mental function due to mental status. Objective Labs 06/01/25 07:10 06/01/25 05:18 Labs: Laboratory Results - last 24 hr 06/01/25 06/01/25 05:18 07:10 WBC 3.9 RBC 3.49 L Hgb 11.4 L D Hct 34.4 L MCV 99 MCH 32.7 MCHC 33.1 RDW Std Deviation 51.8 H Plt Count 336 Neut % (Auto) 39 Lymph % (Auto) 41 [place] % (Auto) 13 H Eos % (Auto) 2 Baso % (Auto) 4 H Neut # (Auto) 1.5 L Lymph # (Auto) 1.6 [place] # (Auto) 0.5 Eos # (Auto) 0.1 Baso # (Auto) 0.2 Immature Gran # (Auto) 0.03 H Absolute Nucleated RBC 0.00 Immature Gran % 1 H Nucleated RBC % 0 Sodium 146 H Potassium 3.8 Chloride 104 Carbon Dioxide 33.2 H Anion Gap 9 BUN 14 Creatinine 0.8 Estim Creat Clear Calc 41.0 L eGFR > 60 BUN/Creatinine Ratio 18 Glucose 100 Calculated Osmolality 291 Calcium 9.0 Corrected Calcium 9.7 Phosphorus 4.1 Magnesium 2.3 Total Bilirubin 0.2 L AST 16 ALT 10 Alkaline Phosphatase 92 Total Protein 5.4 L Albumin 3.1 L D Globulin 2.3 Albumin/Globulin Ratio 1.3 ABG Interpretation ABG results: 05/23/25 05/26/25 19:00 02:33 ABG pH 7.38 7.43 ABG pCO2 55 H 48 ABG pO2 99 87 ABG HCO3 33 H 32 H ABG O2 Saturation 98 98 ABG Base Excess 6 H 6 H Quality Measures Quality Measures VTE prophylaxis Advance care planning discussed with:: other Assessment & Plan Assessment Current Active Medications: Generic Name Dose Route Start Last Admin Trade Name Freq PRN Reason Stop Dose Admin Acetaminophen 650 mg 05/23/25 20:44 Acetaminophen Supp 650 Mg Supp [place] 06/22/25 20:43 Q6HR PRN Fever > 100.4 or pain Acetylcysteine 3 ml 05/26/25 15:00 05/31/25 14:22 Acetylcysteine Rt [place] 10% 4 Ml Nebu INH 06/25/25 14:59 3 ml Q8HRRT JERRY Administration Atropine Sulfate 1 mg 05/26/25 08:11 Atropine Sulf Inj 0.1 Mg/Ml Syr 10 Ml IVP 06/25/25 02:08 Q10MIN PRN bradycardia Cefuroxime Axetil 500 mg 05/30/25 21:00 05/31/25 09:39 Cefuroxime Axetil 250 Mg Tablet PO 06/03/25 23:00 500 mg BID JERRY Administration Xcopri 100 Mg Tablet 0 ea 05/24/25 21:00 05/30/25 22:49 PO 06/23/25 20:59 Not Given HS JERRY Dextrose 50 ml 05/26/25 18:07 Dextrose 50%-Water Inj 50 Ml Syringe IV 06/25/25 18:06 Q15MIN PRN BG <50 OR BG <70 & pt unresponsive Dextrose 25 ml 05/26/25 18:07 Dextrose 50%-Water Inj 50 Ml Syringe IV 06/25/25 18:06 Q15MIN PRN BG 50-70 responsive npo pt Enoxaparin Sodium 40 mg 05/24/25 09:00 05/31/25 09:39 Enoxaparin Sod Inj 40 Mg/0.4 Ml Syringe SC 06/07/25 08:59 40 mg QDAY JERRY Administration Furosemide 20 mg 05/27/25 09:00 05/31/25 09:36 Furosemide Inj 10 Mg/Ml Vial 2 Ml IVP 06/26/25 08:59 20 mg QDAY JERRY Administration Glucagon 1 mg 05/26/25 18:07 Glucagon Inj 1 Mg Vial IM Q15MIN PRN BG <70, and no IV access Levalbuterol HCl 1.25 mg 05/26/25 15:00 05/31/25 14:22 Levalbuterol Rt 1.25 Mg/0.5 Ml Nebu INH 06/25/25 14:59 1.25 mg Q8HRRT JERRY Administration Levetiracetam 1,500 mg 05/24/25 21:00 05/31/25 09:38 Levetiracetam Inj 100 Mg/Ml Vial 5ml IVP 06/23/25 20:59 1,500 mg Q12HR JERRY Administration Levothyroxine Sodium 75 mcg 05/29/25 06:00 05/31/25 07:33 Levothyroxine Sodium 25 Mcg Tablet PO 06/28/25 05:59 75 mcg ACBR JERRY Administration Midodrine 5 mg 05/29/25 14:00 05/31/25 14:18 Midodrine 5 Mg Tablet PO 06/27/25 13:59 5 mg TID JERRY Administration Nystatin 0 gm 05/24/25 14:00 05/31/25 14:19 Nystatin Pwd 15 Gm Btl TOP 06/23/25 13:59 1 applicatio TID JERRY Administration Ondansetron HCl 4 mg 05/23/25 20:44 Ondansetron Inj 2 Mg/Ml Inj 2 Ml IVP 06/22/25 20:43 Q6H PRN NAUSEA OR VOMITING Protocol Sodium Chloride 3 ml 05/26/25 09:41 05/26/25 22:23 Sodium Chloride Rt [place] 0.9% 3 Ml Nebu INH 06/25/25 09:40 3 ml PRN PRN Administration SOLN Plan Lillie Jensen is 70F with MHx Down's syndrome, HFpEF, seizure disorder, asthma, hypothyroidism who presented to the ED on 05/23/2025 having had two seizures back to back without a return to baseline during the previous 24h, difficulty breathing, and hypoxemia. She was admitted for inpatient management of her breakthrough seizures and acute hypoxic respiratory failure likely secondary to pneumonia and bilateral large pleural effusions Problems: 1. Bradycardia 2. Bilateral pleural effusions 3. Pneumonia 4. HFpEF 5. Hypothyroidism 6. Acute hypoxic respiratory failure 9. Seizures 10. History of Down syndrome 11. History of fast Patient was admitted following breakthrough seizures, and altered mental status following recurrent seizures, also noted to have breathing difficulty, admitted with acute hypoxic respiratory failure initial imaging showed bilateral large pleural effusions, CTA chest showed large Lt sided and moderate Rt sided pleural effusion. Mild heart failure and was negative for PE. patient was diuresed initially which led to improvement in pleural effusion, still has large left-sided pleural effusion, also noted to have pneumonia, infectious disease consultation to Dr Meier is placed, ID following. Started on ceftriaxone and fluconazole. Pending coccidiomycosis serology. Prior echocardiogram shows normal LV size and function normal EF, concern for diastolic dysfunction, bilateral pleural effusions possibly due to diastolic heart failure, agree with diuresing, as noted improvement following diuresis. Possible differentials include parapneumonic effusion, thoracentesis was ordered but unable to find enough fluid for thoracentesis by IR. Of note patient had recent admission for pneumonia and ICU stay for hypotension. Rapid response was called on 05/26/2025 at 1:27 AM for hypotension and bradycardia, noted heart rate 33 and MAP 47, received IV fluids 500 mL LR x 2, which improved blood pressure, EKG at the time showed sinus bradycardia, also noted T wave inversions which are consistent with prior EKG. Transient hypotension due to decreased intravascular volume which improved after fluid boluses, bradycardia likely occurred during sleep. Echo 05/16: Normal LV size and function. There is grade I diastolic dysfunction. Estimated EF at 55-60%. The RV is normal in size and systolic function. The estimated RVSP, 42 mmHg. RAP 5. Trace TR. Seizure activity is being managed by neurologist Dr. Mendoza. Pt is on Keppra IV 1.5g BID and XCorpi PO 100mg QD at home. Pt has lost >10L cumulative I&O since her admission 05/23. CT of the chest (05/28) was positive for extensive pneumonia left lung, pericardial effusion measuring up to 11mm, mild enlargement of the cardiac contour, moderate to large left pleural effusion, and mild to moderate right pleural effusion. Free T4 .88 and patient is on 75mcg of levothyroxine daily. Choice of antibiotics was changed by infectious disease from Rocephin to cefuroxime PO 500 mg twice daily. hepatatis antigen test came back positive and the patient will complete full workup and treatment as outpatient. Recommendations: -Overnight telemetry reviewed, patient had HR above 62 consistently. One recorded low rate of 56 at 6AM noted. . Consider proceeding with ACLS bradycardia algorithm if patient has symptomatic bradycardia again. -Pt is on midodrine PO 5mg TID, consider adding holding parameters for midodrine as it can cause bradycardia. -Pt is being diuresed with Lasix IVP 20mg QD for marked pleural effusions -Fluid restriction 1.5L daily with strict I&O -keep K+ >4 and Mg >2 at all times Thank you for cardiology consultation. We appreciate the opportunity to participate in this patient's care. Will continue to follow-up on this patient This case was discussed with my attending physician, Dr. Aguiar, truck trailer mechanic. Jace Galicia DO PGY I Attending Provider Attestation/Addendum I have personally seen and examined the patient separately on the above date of service and discussed the plan of care with the resident. I reviewed the resident Dr. Mccormick consultation progress note and agree with the resident findings and plan in the note above and have also edited the documentation to reflect my findings and plan. Adonis Aguiar M.D. Interventional Cardiology
[2025-06-01 14:35] LABS: Basophils (Manual) 7 % (0-2); Eosinophils (Manual) 1 % (0-4); Lymphocytes (Manual) 48 % (20-44); Monocytes (Manual) 6 % (2-9); Neutrophils (Manual) 38 % (50-70)
== END 2025-06-01 11:45 | disposition home or self-care (01) | DRG 100 ==
LOC: SERX 17:35 → SERHOLD 21:02 → S2NX 23:11 → S3NX 05-29 21:31
PROVIDERS: Internal Medicine Infectious Disease; Student in an Organized Health Care Education/Training Program; Admitting Provider Student in an Organized Health Care Education/Training Program; Emergency Provider Emergency Medicine; PCP Family Medicine; Visit Provider Student in an Organized Health Care Education/Training Program
DX: G40.909 Epilepsy, unspecified, not intractable, without status epilepticus (principal); J18.9 Pneumonia, unspecified organism; J69.0 Pneumonitis due to inhalation of food and vomit; J96.01 Acute respiratory failure with hypoxia; J91.8 Pleural effusion in other conditions classified elsewhere; J98.11 Atelectasis; E87.20 Acidosis, unspecified; I50.32 Chronic diastolic (congestive) heart failure; I31.39 Other pericardial effusion (noninflammatory); Q90.9 Down syndrome, unspecified; J45.909 Unspecified asthma, uncomplicated; E03.9 Hypothyroidism, unspecified; L30.4 Erythema intertrigo; R09.02 Hypoxemia; I50.9 Heart failure, unspecified; E83.42 Hypomagnesemia; R00.1 Bradycardia, unspecified; E87.6 Hypokalemia; F17.200 Nicotine dependence, unspecified, uncomplicated; I95.89 Other hypotension; K59.00 Constipation, unspecified; Z66 Do not resuscitate; Z79.890 Hormone replacement therapy; Z79.899 Other long term (current) drug therapy; Z99.81 Dependence on supplemental oxygen
CPT/HCPCS: 36415; 36600; 70450; 71045; 71250; 71275; 76999; 80053; 80069; 80202; 81001; 82150; 82550; 82803; 82945; 83605; 83615; 83735; 83880; 84100; 84145; 84157; 84436; 84439; 84443; 85025; 85610; 85730; 86022; 86331; 86635; 86703; 86780; 87040; 87081; 87400; 87811; 89051; 92526; 92610; 93005; 93225; 94640; 94660; 94664; 94667; 94762; 95816; 96361; 96365; 96366; 96375; 96376; 97162; 99284; A4649; A9270; J0692; J0696; J1650; J1938; J1953; J2250; J2543; J3373; J3375; J3475; J3480; J3490; J7030; J7050; J7120; J7999; P9047; Q9967; J1836

== ENCOUNTER → 2025-07-24 | Outpatient (CLI) | payer MEDICARE, MEDICAID, SELFPAY ==
--- NOTE | 2025-07-24 | XR_ITS ---
EXAMINATION: AP lateral chest 2 views TECHNIQUE: Sitting AP lateral chest portable 2 views Date and time: July 24, 2025, 12:15 p.m., comparison July 28, 2025 INDICATIONS: Difficulty breathing this week, significant left lung pneumonia on chest film May 28, 2025 FINDINGS: Partial clearing left base pneumonia Calcified granuloma right lung Blunting of the left lateral costophrenic angle Prominent osteopenia IMPRESSION: Improvement in left base pneumonia
--- NOTE | 2025-07-24 | XR_ITS ---
Examination: Lumbar spine, 5 views Technique: Lumbar spine AP, lateral, coned lateral lower lumbar spine, bilateral obliques 5 views Exam date and time: July 24, 2025, 1209 hours INDICATIONS: Back pain this week FINDINGS: Severe osteopenia Compression fractures of T12, severe, L1, moderate, noted on the May 28, 2025 CT scan No new compression fractures Significant disc narrowing lower 3 lumbar levels IMPRESSION: Chronic compression fractures L1 T12
== END | disposition home or self-care (01) ==
PROVIDERS: PCP Internal Medicine; Referring Provider Internal Medicine; Visit Provider Orthopaedic Surgery Orthopaedic Surgery of the Spine
DX: J18.9 Pneumonia, unspecified organism (principal); M48.56XA Collapsed vertebra, not elsewhere classified, lumbar region, initial encounter for fracture
CPT/HCPCS: 71046; 72110

== ENCOUNTER 2025-08-26 10:29 | Inpatient (IN) | payer MEDICARE, MEDICAID, SELFPAY ==
[2025-08-26] VITALS (87 sets, daily range): BP systolic 75–155; BP diastolic 38–101; PULSE 50–112; RESP 11–90; TEMP 35.8–37.4; O2SAT 67–100; BMI 22.1
--- NOTE | 2025-08-26 10:40 | EDNOTE_ITS ---
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 GARDUNO MAIN ED EVALUATION: 70-year-old female brought from home care facility by EMS for fever and hypotens ion. Exhauster reported a temperature of 100.1?F and became concerned because the patient previously had pneumonia and almost , so she was concerned this time. EMS blood pressure was 80/50 with oxygen saturation 93 percent on room air. Exhauster reports she is at her baseline but slightly less active than usual. No vomiting, diarrhea, or new complaints reported. Past medical history includes Down syndrome, seizures, asthma, and hypothyroidism. Medications include aspirin, calcium, Keppra 500 mg, and levothyroxine. Related Data Home Medications ?Medication ?Instructions ?Recorded ?Confirmed aspirin 81 mg chewable tablet 81 mg PO DAILY Elevated Lipids 09/23/23 08/26/25 calcium 600 mg (as 1 tab PO BID 09/23/23 carbonate)-vitamin D3 10 mcg (400 unit) tablet docusate sodium 100 mg capsule 100 mg PO BID Constipat ion 09/23/23 08/26/25 levothyroxine 75 mcg tablet 75 mcg PO DAILY 09/23/2310/26/24 loratadine 10 mg tablet 10 mg PO DAILY 09/23/2308/05 montelukast 10 mg tablet 10 mg PO DAILY 09/23/2308/05 quetiapine 100 mg tablet 100 mg PO HS 09/23/23 Held on 05/29/25. Instructions: Resume on 06/05/25. To be reviewed and resumed by the neurologist cranberry extract 500 mg capsule 500 mg PO QDAY 08/26/25 (Cranberry Concentrate) methenamine hippurate 1 gram 1 g PO QDAY 08/10/2408/05 tablet (Hiprex) polyethylene glycol 3350 17 17 g PO QDAY 03/13/2508/05 gram/dose oral powder cenobamate 50 mg tablet (Xcopri) 50 mg PO QDAY 5 08/26/25 levetiracetam 500 mg tablet 2,500 mg PO BID 08/26/25 1 10/26/24 levetiracetam 750 mg tablet mg PO BID 08/26/25 Previous Rx's ?Medication ?Instructions ?Recorded DME Order Set (Bipap) #1 ea 05/30/25 Allergies Allergy/AdvReac Type Severity Reaction Status Date / Time No Known Allergies Allergy Unverified 03/12/25 16:06 Review of Systems Review of Systems Systems Reviewed: All systems reviewed, normal except as documented Past Medical History Past Medical History NEUROLOGIC: Positive Neurological Disorders and Seizures CARDIAC: Positive Hypercholesterolemia and Hypotension RESPIRATORY: Positive Asthma GASTROINTESTINAL: Positive Gastrointestinal Bleed ENT: Positive Cataracts ENDOCRINE: Positive Hyperthyroidism and Hypothyroidism OTHER HISTORY: Positive Hospitalization, Down Syndrome and Developmental Delay Social History SMOKING STATUS: Unknown if ever smoked Physical Exam General Limitations: altered mental status and other (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, partially verbal) General appearance: other (appears dehydrated, dry mucous membranes, acutely ill) Head Head exam: atraumatic and normocephalic Eye Eye exam: Present PERRL and EOMI ENT ENT exam: Present normal oropharynx and mucous membranes dry Neck Neck exam: Present normal inspection, full ROM and trachea midline Chest Chest inspection: Present normal inspection and symmetric chest wall rise Respiratory Respiratory exam: Present wheezes and other (diminished breath sounds on the right) Cardiovascular Cardiovascular exam: Present regular rate, normal rhythm and normal heart sounds Abdominal Exam Abdominal exam: Present soft; Absent distention, tenderness or guarding External exam: Present normal external exam Extremities Exam Extremities exam: Present normal inspection and full ROM; Absent pedal edema Neurological Exam Neurological exam: Present other (at baseline, partially verbal, moves all extremities spontaneously, spontaneously opens eyes, minimally follows commands) Psychiatric Psychiatric exam: Present depressed Skin Skin exam: Present warm, dry, intact and normal color ED Exam General Limitations: Present altered mental status and other (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, partially verbal) General appearance: Present other (appears dehydrated, dry mucous membranes, acutely ill) Head Head exam: Present atraumatic and normocephalic Eye Eye exam: Present PERRL and EOMI ENT ENT exam: Present normal oropharynx and mucous membranes dry Neck Neck exam: Present normal inspection, full ROM and trachea midline Chest Chest inspection: Present normal inspection and symmetric chest wall rise Respiratory Respiratory exam: Present wheezes and other (diminished breath sounds on the right) Cardiovascular Cardiovascular exam: Present regular rate, normal rhythm and normal heart sounds Abdominal Exam Abdominal exam: Present soft; Absent distention, tenderness or guarding External exam: Present normal external exam Extremities Exam Extremities exam: Present normal inspection and full ROM; Absent pedal edema Neurological Exam Neurological exam: Present other (at baseline, partially verbal, moves all extremities spontaneously, spontaneously opens eyes, minimally follows commands) Psychiatric Psychiatric exam: Present depressed Skin Skin exam: Present warm, dry, intact and normal color Course Quality Measures none Orders Category Date Time Status Bedside Blood Glucose NOW Care 08/26/25 10:51 Active Bedside COVID-19 Antigen Test NOW Care 08/26/25 10:[address] Screening NOW Care 08/26/25 11:38 Active Rubbing Bed Operator Q4H START 00 Care 08/26/25 10:51 Active EKG (ED ONLY) *Do not use* NOW Care 08/26/25 10:51 Completed Initiate Warming Therapy X1 Care 08/26/25 14:32 Active Insert IV NOW Care 08/26/25 10:51 Active Strict Intake and Output Routine Care 08/26/25 10:[address] chest w con Stat Exams 08/26/25 11:38 Completed EKG (ED Only) Stat Exams 08/26/25 10:51 Draft XR chest 1V SEPSIS PROTOCOL Stat Exams 08/26/25 10:51 Completed BNP [B-Type Natriuretic Peptide] Stat Lab 08/26/25 11:01 Completed Blood Culture (Lab) Stat Lab 08/26/25 11:01 Received CBC Stat Lab 08/26/25 11:01 Completed Comprehensive Metabolic Panel Stat Lab 08/26/25 11:01 Completed Free T4 (Free Thyroxine) Stat Lab 08/26/25 11:01 Completed Influenza A & B Rapid Panel Stat Lab 08/26/25 11:07 Completed Lactate (Lactic Acid) Stat Lab 08/26/25 11:01 Completed Lactic Acid, 3 HR Stat Lab 08/26/25 14:26 Completed Partial Thromboplastin Time Stat Lab 08/26/25 11:01 Completed Procalcitonin Stat Lab 08/26/25 11:01 Completed Prothrombin Time with INR Stat Lab 08/26/25 11:01 Completed Thyroid Stimulating Hormone Stat Lab 08/26/25 11:01 Completed Urinalysis Stat Lab 08/26/25 11:01 Completed Urine Culture Stat Lab 08/26/25 11:01 Received ALBUTEROL RT 0.5ml [Proventil Rt 0.5ml] Med 08/26/25 10:57 Discontinued 10 mg INH X1 ONE Azithromycin Inj [Zithromax Inj] 500 mg Med 08/26/25 13:11 Discontinued Sodium Chloride 0.9% 250 ml [Ns] 250 ml IV STAT Ipratropium [facility] Rt Shannon [Atrovent Rt Shannon] Med 08/26/25 10:58 Discontinued 1 mg INH X1 ONE Midazolam Inj [Versed Inj] Med 08/26/25 16:03 Active 4 mg IVP Q5MIN PRN Norepinephrine/D5W 8mg/250ml [Levophed in D5W 8mg/250ml Med 08/26/25 14:51 Active ] 8 mg in 250 ml IV 0.05 mcg/kg/min Ringers Lactated 1000 ml [Lactated Ringers] 1,000 ml Med 08/26/25 13:11 Discontinued IV 999 mls/hr Ringers Lactated 1000 ml [Lactated Ringers] 1,000 ml Med 08/26/25 16:21 Discontinued IV 999 mls/hr Sodium Chloride Rt Shannon 0.9% [NS Rt Shannon 0.9%] Med 08/26/25 10:57 Active 3 ml INH PRN PRN cefTRIAXone/D5w 1gm IV premix [Rocephin/D5w 1gm IV Med 08/26/25 10:51 Discontinued premix] 1 gm in 50 ml IV STAT levETIRAcetam INJ [Keppra Inj] Med 08/26/25 16:00 Discontinued 1,500 mg IVP X1 ONE levETIRAcetam INJ [Keppra Inj] Med 08/26/25 13:13 Discontinued 500 mg IVP X1 ONE levETIRAcetam INJ [Keppra Inj] Med 08/26/25 14:35 Discontinued 500 mg IVP X1 ONE EKG (RT) Stat RT 08/26/25 10:51 Ordered Oxygen Delivery NOW RT 08/26/25 10:51 Active Vital Signs Vital signs: Vital Signs Temperature 99.4 F 08/26/25 10:51 Pulse Rate 75 08/26/25 10:51 Respiratory Rate 20 08/26/25 10:51 Blood Pressure 102/65 08/26/25 10:51 Pulse Oximetry (%) 100 08/26/25 10:51 Oxygen Delivery Method Nasal Cannula 08/26/25 10:51 Oxygen Flow Rate 2 08/26/25 10:51 Fever MDM Narrative MDM Narrative:: I, Lisbeth Barclay, am scribing for and in the presence of Dr. Garduno. 70-year-old female with fever and hypotension, diminished right breath sounds, and dry mucous membranes. Concern for pneumonia, viral syndrome, urinary tract infection, thyroid dysfunction workup initiated. Vital signs and exam as listed. Ordered labs EKG after medication for symptom relief. EKG performed today at 11 oh 2 in the morning, interpreted by Dr. Garduno; notable for sinus rhythm heart rate 65 normal intervals, nonspecific T wave changes, not a cardiac alert. Patient without any acute hematologic abnormality, no significant electrolyte abnormality patient BUN is 8 lactic acid 5.4 will provide patient with fluids. Patient does have diastolic heart failure, has an EF of 55%. This is per an echocardiogram performed in May of this year. Patient without transaminitis. Procalcitonin not elevated. Thyroid studies unremarkable, urinalysis without evidence of infection viral swabs negative. Chest x-ray with left greater than right basilar opacities concerning for infection. Antibiotics provided. Patient also has emphysematous changes. Patient also had an abnormal finding on the chest x-ray concerning for possible skinfold versus pneumothorax. Ordered CT scan given that patient is unable to stand for two-view chest x-ray. Will admit patient. Following fluid resuscitation 5p patient continues to be somnolent however protecting airway, abdomen soft nondistended, systolic blood pressure soft. Attempted to admit patient to the hospitalist service however given maps when patient sleeps dropped to the 50s, despite 2 L of fluids, started patient on Levophed, requiring 1.11 of Levophed, consulted ICU for admission, kindly accepted patient for admission. ICU placed a central line, I supervised, no complications. Patient admitted she is hemodynamically stable not distressed Total critical care time: Approximately?60?minutes Due to a high probability of clinically significant, life threatening deterioration, the patient required my highest level of preparedness to intervene emergently and I personally spent this critical care time directly and personally managing the patient. This critical care time included obtaining a history; examining the patient; pulse oximetry; ordering and review of studies; arranging urgent treatment with development of a ma nagement plan; evaluation of patient's response to treatment; frequent reassessment; and, discussions with other providers. This critical care time was performed to assess and manage the high probabi lity of imminent, life-threatening deterioration that could result in multi- organ failure. It was exclusive of separately billable procedures and treating other patients and teaching time. Please see MDM section and the rest of the note for further information on patient assessment and treatment. 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 Medications include aspirin, calcium, Keppra 500 mg, and levothyroxine. How is presenting disease/condition affected by chronic disease/condition?: uneffected by Evaluation data The following diagnostics were reviewed and interpreted by me:: lab results, radiology exam(s) and EKG tracing(s) (EKG performed today at 11 oh 2 in the morning, interpreted by Dr. Garduno; notable for sinus rhythm heart rate 65 normal intervals, nonspecific T wave changes, not a cardiac alert) Lab and/or radiology exams considered but not ordered:: none Interpretation Summary: See MDM narrative above. RADIOLOGY Procedure(s): XR chest 1V SEPSIS PROTOCOL Accession Number(s): [id number] cc: Crescencio Hagen MD; NO PRIMARY/FAMILY,PHYSICIAN; Kayley Garduno MD~ EXAMINATION: XR chest 1V SEPSIS PROTOCOL ORDERING PROVIDER: Kayley Garduno MD HISTORY: Sepsis protocol TECHNIQUE: Single portable AP radiograph of the chest. COMPARISON: 07/24/2025, chest radiographs. 05/28/2025, CT chest. FINDINGS: Lines and Tubes: Overlying monitoring leads obscure the chest. Lungs: Mildly hyperinflated. Emphysematous changes. Left greater than right basilar opacities. Similar calcified right middle lobe 1.4 cm lesion, probably calcified granuloma. Pleura: There is a curvilinear line along the left lateral lung apex. However, there is extension of the pulmonary markings distal to this, and this is favored to represent a skinfold rather than pneumothorax. Cardiomediastinal Silhouette: Uncoiled aorta. Soft Tissues/Bones: Mild to moderate bony degenerative changes. Old posterior lateral right upper rib fractures. IMPRESSION: 1. Left greater than right bibasilar opacities concerning for infection. 2. Baseline emphysematous changes. 3. Curvilinear marking along the left lateral lung apex. However, there is extension of the pulmonary markings distal to this, and this is favored to represent a skinfold rather than pneumothorax. If further clinical concern, consider two-view chest radiograph. Dictated By: Crescencio Hagen MD Procedure(s): CT chest w con Accession Number(s): [id number] cc: Jose Manuel Croft MD; Rolando Rosas MD; Kayley Garduno MD~ Examination: CT chest with intravenous contrast 2-D sagittal and coronal reconstructions Exam date and time: August 2020, 2024, 1317 hours Congestion shortness of breath this week, sepsis protocol CTDI:vol (mGy) 12.6 DLP: (mGycm) 409 Technique: Multiple axial sections of the thorax have been obtained. Sections have been obtained, 3 mm slice thickness. Mediastinal and lung density settings have been obtained. Intravenous contrast administered, 60 cc Isovue-370. 2-D sagittal, coronal images obtained. Low dose protocols were performed. One or more of the following dose reduction techniques were used; automated exposure control, adjustment of the mA and/or KV according to patient size, use of iterative reconstruction technique. Findings: No thoracic aortic aneurysmal dilatation or dissection No pulmonary artery filling defects on this non-CTA study No paratracheal tracheobronchial or bronchopulmonary adenopathy Right apical probable pleural scarring Mild enlargement cardiac contour with moderate vascular congestion Pneumonia left base No pneumothorax Large calcified granuloma in the right upper lobe No visualized liver or splenic lesion No gallstones No pancreatic or adrenal mass Chronic osteoporotic compression L1 T7, T6, T5, T4 IMPRESSION: Suspicious for mild heart failure Pneumonia left base with small left pleural effusion No pneumothorax, negative for pneumomediastinum Dictated By: Jose Manuel Croft MD Medications / Prescriptions Medications or Prescriptions considered but not ordered:: none Medication administrations:: Medication Administration History Acetaminophen (Acetaminophen 325 Mg Tablet) 650 mg PO Q6H PRN PRN Reason: Fever >101.5 or pain 1-3 Stop: 09/25/25 16:22 Albuterol/Ipratropium (Albuterol/Ipratropium (Duoneb) Rt Shannon 3 Ml Nebu) 3 ml INH Q4HRRT PRN PRN Reason: wheezing or SOB Stop: 09/25/25 18:59 Norepinephrine/Dextrose (Levophed In D5w 8mg/250ml) 8 mg in 250 mls @ 4.04 mls/hr IV .Q24H PRN; Protocol PRN Reason: PER PROTOCOL Stop: 09/25/25 14:50 Last Titration: 08/26/25 23:14 Dose: 0 mcg/kg/min, 0 mls/hr Documented By: Titration: 08/26/25 23:00 Dose: 0.01 mcg/kg/min, 0.808 mls/hr Documented By: Titration: 08/26/25 22:33 Dose: 0.01 mcg/kg/min, 0.808 mls/hr Documented By: Titration: 08/26/25 22:00 Dose: 0.03 mcg/kg/min, 2.424 mls/hr Documented By: Titration: 08/26/25 21:00 Dose: 0.03 mcg/kg/min, 2.424 mls/hr Documented By: Titration: 08/26/25 20:25 Dose: 0.03 mcg/kg/min, 2.424 mls/hr Documented By: Titration: 08/26/25 20:00 Dose: 0.05 mcg/kg/min, 4.04 mls/hr Documented By: Titration: 08/26/25 19:05 Dose: 0.05 mcg/kg/min, 4.04 mls/hr Documented By: Titration: 08/26/25 19:00 Dose: 0.07 mcg/kg/min, 5.656 mls/hr Documented By: Titration: 08/26/25 18:50 Dose: 0.07 mcg/kg/min, 5.656 mls/hr Documented By: Titration: 08/26/25 18:30 Dose: 0.09 mcg/kg/min, 7.272 mls/hr Documented By: Titration: 08/26/25 18:15 Dose: 0.11 mcg/kg/min, 8.888 mls/hr Documented By: Titration: 08/26/25 18:05 Dose: 0.13 mcg/kg/min, 10.503 mls/hr Documented By: Titration: 08/26/25 18:00 Dose: 0.13 mcg/kg/min, 10.503 mls/hr Documented By: Titration: 08/26/25 17:55 Dose: 0.11 mcg/kg/min, 8.888 mls/hr Documented By: Titration: 08/26/25 17:50 Dose: 0.09 mcg/kg/min, 7.272 mls/hr Documented By: Titration: 08/26/25 17:35 Dose: 0.07 mcg/kg/min, 5.656 mls/hr Documented By: Titration: 08/26/25 17:30 Dose: 0.07 mcg/kg/min, 5.656 mls/hr Documented By: Titration: 08/26/25 17:00 Dose: 0.05 mcg/kg/min, 4.04 mls/hr Documented By: Titration: 08/26/25 16:55 Dose: 0.05 mcg/kg/min, 4.04 mls/hr Documented By: Titration: 08/26/25 16:50 Dose: 0.09 mcg/kg/min, 7.272 mls/hr Documented By: Titration: 08/26/25 16:00 Dose: 0.11 mcg/kg/min, 8.888 mls/hr Documented By: Titration: 08/26/25 15:20 Dose: 0.11 mcg/kg/min, 8.888 mls/hr Documented By: Titration: 08/26/25 15:15 Dose: 0.11 mcg/kg/min, 8.888 mls/hr Documented By: Titration: 08/26/25 15:10 Dose: 0.09 mcg/kg/min, 7.272 mls/hr Documented By: Titration: 08/26/25 15:05 Dose: 0.07 mcg/kg/min, 5.656 mls/hr Documented By: Admin: 08/26/25 15:00 Dose: 0.05 mcg/kg/min, 4.04 mls/hr Documented By: YAMILA Azithromycin 500 mg/ Sodium (Chloride) 250 mls @ 250 mls/hr IV QDAY@1400 [facility] Stop: 09/03/25 13:59 Ceftriaxone Sodium/Dextrose (Rocephin/D5w 1gm Iv Premix) 1 gm in 50 mls @ 100 mls/hr IV QDAY@1400 [facility] Stop: 09/03/25 13:59 Levetiracetam (Levetiracetam Inj 100 Mg/Ml Vial 5ml) 1,000 mg IVP QDAY JERRY Stop: 09/26/25 08:59 Levetiracetam (Levetiracetam Inj 100 Mg/Ml Vial 5ml) 1,500 mg IVP Q24H JERRY Stop: 09/26/25 14:59 Levothyroxine Sodium (Levothyroxine Sodium 25 Mcg Tablet) 75 mcg PO ACBR JERRY Stop: 09/26/25 05:59 Last Admin: 08/27/25 06:35 Dose: Not Given Documented By: MARIAM Non-Admin Reason: NPO Midazolam HCl (Midazolam Inj 1 Mg/Ml Vial 2 Ml) 4 mg IVP Q5MIN PRN PRN Reason: SEIZURE Sodium Chloride (Sodium Chloride Rt Shannon 0.9% 3 Ml Nebu) 3 ml INH PRN PRN PRN Reason: SOLN Stop: 09/25/25 10:56 Last Admin: 08/26/25 11:31 Dose: 3 ml Documented By: BJ Discontinued Medications Albuterol (Albuterol Rt 2.5 Mg/0.5 Ml Nebu) 10 mg INH X1 ONE Stop: 08/26/25 10:58 Last Admin: 08/26/25 11:30 Dose: 10 mg Documented By: PITA Ceftriaxone Sodium/Dextrose (Rocephin/D5w 1gm Iv Premix) 1 gm in 50 mls @ 100 mls/hr IV STAT STA Stop: 08/26/25 11:20 Last Infusion: 08/26/25 11:43 Dose: Infused Documented By: Admin: 08/26/25 11:11 Dose: 100 mls/hr Documented By: YAMILA Lactated Ringer's (Lactated Ringers) 1,000 mls @ 999 mls/hr IV .Q1H1M ONE Stop: 08/26/25 14:11 Last Infusion: 08/26/25 14:52 Dose: Infused Documented By: Admin: 08/26/25 13:40 Dose: 999 mls/hr Documented By: YAMILA Azithromycin 500 mg/ Sodium (Chloride) 250 mls @ 250 mls/hr IV STAT STA Stop: 08/26/25 14:10 Last Infusion: 08/26/25 14:52 Dose: Infused Documented By: Admin: 08/26/25 13:40 Dose: 250 mls/hr Documented By: YAMILA Lactated Ringer's (Lactated Ringers) 1,000 mls @ 999 mls/hr IV .Q1H1M ONE Stop: 08/26/25 17:21 Last Infusion: 08/26/25 17:22 Dose: Infused Documented By: Admin: 08/26/25 16:25 Dose: 999 mls/hr Documented By: YAMILA Ipratropium [facility] (Ipratropium Rt 0.5 Mg/ 2.5 Ml Nebu) 1 mg INH X1 ONE Stop: 08/26/25 10:59 Last Admin: 08/26/25 11:30 Dose: 1 mg Documented By: PITA Levetiracetam (Levetiracetam Inj 100 Mg/Ml Vial 5ml) 500 mg IVP X1 ONE Stop: 08/26/25 13:14 Last Admin: 08/26/25 13:40 Dose: 500 mg Documented By: YAMILA Levetiracetam (Levetiracetam Inj 100 Mg/Ml Vial 5ml) 500 mg IVP X1 ONE Stop: 08/26/25 14:36 Last Admin: 08/26/25 14:59 Dose: 500 mg Documented By: YAMILA Levetiracetam (Levetiracetam Inj 100 Mg/Ml Vial 5ml) 1,500 mg IVP X1 ONE Stop: 08/26/25 16:01 Last Admin: 08/26/25 16:10 Dose: 1,500 mg Documented By: YAMILA Sodium Chloride (Sodium Chloride Rt 10% 15 Ml Nebu) 5 ml INH X1 ONE Stop: 08/26/25 18:25 see above if any Consultations Consultation(s) initiated? (list below): Yes Consultation #1 (Physician, Specialty, Details): Discussed test HPI, PMHx, lab, radiology results and/or management with resident working with the hospitalist. Will admit for further evaluation and management. Recommends ICU admission. Time: 14:30 Consultation #2 (Physician, Specialty, Details): Discussed test HPI, PMHx, lab, radiology results and/or management with Dr. Solano. Accepts the patient to ICU. Time: 15:40 Diagnosis Fever Differential Diagnosis: other (sepsis, pneumonia, and dehydration) Most likely diagnosis given after review of the tests above:: Pneumonia Sepsis Hypothermia Admission Indicated Admission indicated?: indicated Admission Request Was there a request for admission?: Yes Admission Attestation Admission request attestation: Discussed case with [] from Hospitalist service regarding admission. Discussed patients ED course, exam findings, labs, and radiology results. The Hospitalist [agrees,declines] to accept the patient for admission. Disposition Plan Disposition Plan: Admit Critical Care Time Critical Care Time Critical Care Time: Yes Total Critical Care Time (min.): 45 Attestation: The high probability of sudden, clinically significant deterioration in the patient?s condition required the highest level of my preparedness to intervene urgently. The services I provided to this patient were to treat and/or prevent clinically significant deterioration. Services included the following: chart data review, reviewing nursing notes and/or old charts, documentation time, senior analytic consultant collaboration regarding findings and treatment options, medication orders and management, direct patient care, vital sign assessments and ordering, interpreting and reviewing diagnostic studies and lab tests. Aggregate critical care time includes only time during which I was engaged in work directly related to the patient?s care, as described above, whether at bedside or elsewhere in the Emergency Department. It did not include time spent performing other reported procedures or the services of residents, students, nurses or physician assistants. Discharge Plan Plan Patient Disposition: Admit Acute Care w/in Hospital Problem List Clinical Impression: Pneumonia, Sepsis, Hypothermia
--- NOTE | 2025-08-26 10:51 | XR_ITS ---
EXAMINATION: XR chest 1V SEPSIS PROTOCOL ORDERING PROVIDER: Kayley Vuong MD HISTORY: Sepsis protocol TECHNIQUE: Single portable AP radiograph of the chest. COMPARISON: 07/24/2025, chest radiographs. 05/28/2025, CT chest. FINDINGS: Lines and Tubes: Overlying monitoring leads obscure the chest. Lungs: Mildly hyperinflated. Emphysematous changes. Left greater than right basilar opacities. Similar calcified right middle lobe 1.4 cm lesion, probably calcified granuloma. Pleura: There is a curvilinear line along the left lateral lung apex. However, there is extension of the pulmonary markings distal to this, and this is favored to represent a skinfold rather than pneumothorax. Cardiomediastinal Silhouette: Uncoiled aorta. Soft Tissues/Bones: Mild to moderate bony degenerative changes. Old posterior lateral right upper rib fractures. IMPRESSION: 1. Left greater than right bibasilar opacities concerning for infection. 2. Baseline emphysematous changes. 3. Curvilinear marking along the left lateral lung apex. However, there is extension of the pulmonary markings distal to this, and this is favored to represent a skinfold rather than pneumothorax. If further clinical concern, consider two-view chest radiograph.
--- NOTE | 2025-08-26 10:51 | EKG_ITS ---
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
[2025-08-26 11:07] LABS: Collection Type, Urine Clean Catch
[2025-08-26] MEDS: cefTRIAXone/D5w 1gm IV premix 1 GM/50 ML BAG IV (11:11)
[2025-08-26 11:17] LABS: Basophils # (Auto) 0.0 Thou/mm3 (0.0-0.2); Basophils % (Auto) 1 % (0-2.5); Eosinophils # (Auto) 0.0 Thou/mm3 (0.0-0.5); Eosinophils % (Auto) 1 % (0-10); Hematocrit 43.2 % (36.0-46.0); Hemoglobin 14.5 g/dL (12.0-16.0); Immature Granulocytes Auto 0.03 Thou/mm3 (0.00-0.00); Lymphocytes # (Auto) 0.8 Thou/mm3 (1.0-4.8); Lymphocytes % (Auto) 12 % (10-50); Mean Corpuscular HGB Conc 33.6 g/dl (31.0-37.0); Mean Corpuscular Hemoglobin 32.6 pg (25.0-35.0); Mean Corpuscular Volume 97 fL (80-100); Monocytes # (Auto) 0.5 Thou/mm3 (0.0-0.8); Monocytes % (Auto) 7 % (0-12); Neutrophils # (Auto) 5.4 Thou/mm3 (1.8-7.7); Neutrophils % (Auto) 80 % (37-80); Nucleated Red Blood Cell # 0.00 Thou/mm3 (0.00-0.00); Nucleated Red Blood Cell % 0 /100 WBC (0); Platelet Count 220 Thou/mm3 (140-440); RDW Standard Deviation 46.3 fL (36.4-46.3); Red Blood Count 4.45 Miln/mm3 (4.00-5.20); White Blood Count 6.8 Thou/mm3 (3.6-11.0)
[2025-08-26 11:29] LABS: Lactate (Lactic Acid) 5.4 mMol/L (0.4-2.0)
[2025-08-26] MEDS: ALBUTEROL RT 2.5 MG/0.5 ML NEBU 10 MG INH (11:30)
[2025-08-26] MEDS: IPRATROPIUM RT 0.5 MG/ 2.5 ML NEBU 1 MG INH (11:30)
[2025-08-26] MEDS: SODIUM CHLORIDE RT SOL 0.9% 3 ML NEBU INH (11:31)
[2025-08-26 11:34] LABS: Bilirubin,Urine Negative (Negative); Blood,Urine Negative (Negative); Clarity,Urine Clear (Clear/Hazy); Color,Urine Lt-Yellow (Lt Yel-Yel); Glucose, Urine Negative (Negative); Ketones,Urine Negative (Negative); Leukocyte Esterase,Urine Negative (Negative); Nitrite,Urine Negative (Negative); PH,Urine 6.0 (5.0-7.0); Protein,Urine Negative (Neg - Trace); RBC,Urine 2 /hpf (0-3); Specific Gravity,Urine 1.021 (1.001-1.035); Squamous Epithelial Cell,Urine 1 /hpf (0-5); Urobilinogen,Urine Negative mg/dL (0.0-1.0); WBC,Urine < 1 /hpf (0-5)
--- NOTE | 2025-08-26 11:38 | XR_ITS ---
Examination: CT chest with intravenous contrast 2-D sagittal and coronal reconstructions Exam date and time: August 2020, 2024, 1317 hours Congestion shortness of breath this week, sepsis protocol CTDI:vol (mGy) 12.6 DLP: (mGycm) 409 Technique: Multiple axial sections of the thorax have been obtained. Sections have been obtained, 3 mm slice thickness. Mediastinal and lung density settings have been obtained. Intravenous contrast administered, 60 cc Isovue-370. 2-D sagittal, coronal images obtained. Low dose protocols were performed. One or more of the following dose reduction techniques were used; automated exposure control, adjustment of the mA and/or KV according to patient size, use of iterative reconstruction technique. Findings: No thoracic aortic aneurysmal dilatation or dissection No pulmonary artery filling defects on this non-CTA study No paratracheal tracheobronchial or bronchopulmonary adenopathy Right apical probable pleural scarring Mild enlargement cardiac contour with moderate vascular congestion Pneumonia left base No pneumothorax Large calcified granuloma in the right upper lobe No visualized liver or splenic lesion No gallstones No pancreatic or adrenal mass Chronic osteoporotic compression L1 T7, T6, T5, T4 IMPRESSION: Suspicious for mild heart failure Pneumonia left base with small left pleural effusion No pneumothorax, negative for pneumomediastinum
[2025-08-26 11:50] LABS: INR 1.0 (0.9-1.3); Partial Thromboplastin Time 31.0 Seconds (22.0-36.0); Prothrombin Time 10.7 Seconds (9.0-12.2)
[2025-08-26 12:04] LABS: Alanine Aminotransferase 15 U/L (10-49); Albumin, Serum 3.9 gm/dL (3.4-4.8); Albumin/Globulin Ratio 1.6 (1.2-2.2); Alkaline Phosphatase 104 U/L (46-116); Anion Gap 11 (7-16); Aspartate Amino Transferase 29 U/L (0-34); BUN/Creatinine Ratio 10 Ratio (12-20); Bilirubin,Total 0.2 mg/dL (0.3-1.2); Blood Urea Nitrogen 8 mg/dL (9-23); Calcium 8.6 mg/dL (8.3-10.6); Calcium (Corrected) 8.7 mg/dL (8.5-10.1); Carbon Dioxide 26.2 mMol/L (20.0-31.0); Chloride 103 mMol/L (98-107); Creatinine (Component) 0.8 mg/dL (0.6-1.3); Estimated Creatinine Clearance 41.0 mL/min (>60); Free T4 (Free Thyroxine) 1.33 ng/dL (0.89-1.76); Globulin 2.4 gm/dL (2.3-3.5); Glucose 152 mg/dL (74-106); Osmolality,Calculated 280 (275-295); Potassium 4.6 mMol/L (3.4-5.1); Procalcitonin 0.10 ng/ml (0.0-0.49); Sodium 140 mMol/L (136-145); Thyroid Stimulating Hormone 0.73 uIU/mL (0.55-4.78); Total Protein 6.3 gm/dL (5.7-8.2); eGFR > 60 See Note
[2025-08-26 12:23] LABS: B-Type Natriuretic Peptide 55 pg/mL (0-100)
[2025-08-26 12:52] LABS: Influenza A Ag Negative; Influenza B Ag Negative
[2025-08-26] MEDS: RINGERS LACTATED 1000 ML 1,000 ML 999 ML IV ×2 (13:40→16:25)
[2025-08-26] MEDS: AZITHROMYCIN INJ 500 MG in SODIUM CHLORIDE 0.9% 250 ML 250 ML 250 MG IV (13:40)
[2025-08-26] MEDS: levETIRAcetam INJ 100 MG/ML VIAL 5ML 500 MG IVP ×2 (13:40→14:59)
[2025-08-26 14:05] LABS: Reflex Lactate? Y
[2025-08-26 14:58] LABS: Lactic Acid, 3 HR 6.3 mMol/L (0.4-2.0)
[2025-08-26] MEDS: Norepinephrine/D5W 8mg/250ml 8 MG/250 ML BAG 4.04 MG IV (15:00)
[2025-08-26] MEDS: levETIRAcetam INJ 100 MG/ML VIAL 5ML 1500 MG IVP (16:10)
--- NOTE | 2025-08-26 17:25 | XR_ITS ---
EXAMINATION: AP chest single view TECHNIQUE: AP portable semiupright chest single view Date and time: August 26, 2025, 1735 hours, comparison August 26, 2025 INDICATIONS: Post central line placement FINDINGS: Right internal jugular central line tip SVC satisfactory position Left base pneumonia Mild prominence cardiac contour Ectatic thoracic aorta No pneumothorax IMPRESSION: Right internal jugular central line tip satisfactory position, no pneumothorax
--- NOTE | 2025-08-26 17:51 | ESOP_ITS ---
PROCEDURES: Procedure Date / Time 08/26/25 1725 Central Line Placement Right IJ: Indication(s): shock and poor, or inadequate peripheral venous access Informed consent obtained: obtained from surrogate decision maker Time out done, and the following verified: correct patient, side and site, procedure, patient position and implants and/or equipment Patient placed on monitor/pulse ox: Yes Hand Hygiene: soap & water and alcohol-based hand rub Max Sterile Barrier Techniques used: cap, mask, sterile gown, sterile gloves and sterile full body drape Central line prep: Chlorhexidine scrub and sterile drapes applied Local anesthesia used: lidocaine 1% Amount of anesthesia used (mL): 5 Ultrasound used for placement: Yes Sterile Technique if Ultrasound used, including sterile gel: yes Central line lumen inserted: triple Post procedure: sutured in place, good blood return, all ports aspirated, flushed, capped and sterile dressing applied Post procedure x-ray: tip of catheter in good position and no pneumothorax seen Patient tolerated procedure: well and no complications EBL(ml): 5 Complications: none Procedure comment: PROCEDURE SUMMARY: The [facility] Central Line Insertion Practices form was completed by an independent observer starting with the first handwash prior to starting sterile technique. A time out was performed. My hands were washed immediately prior to the procedure. I wore a surgical cap, mask with protective eyewear, full gown and sterile gloves throughout the procedure. The patient was placed in Trendelenburg position. RIGHT chest region was prepped using chlorhexidine scrub and draped in sterile fashion using a full drape and sterile probe cover and sterile gel employed. The medial and lateral heads of the sternocleidomastoid muscle were identified as was the carotid pulse. The Right Internal Jugular vein was identified using the ultrasound. Anesthesia was achieved over the vein using 1% lidocaine. Using real-time out of plane guidance, the introducer needle was inserted into the Right Internal Jugular vein under direct ultrasound visualization. Venous blood was withdrawn. The syringe was removed and a guidewire was advanced into the introducer needle. The guidewire was visualized in the Right Internal Jugular Vein by ultrasound. A small incision was made at the skin surface with a scalpel and the introducer needle was exchanged for a dilator over the guidewire. After appropriate dilation was obtained, the dilator was exchanged over the wire for a triple lumen central venous catheter. The wire was removed and the catheter was sutured in place at 20 cm. A sterile sorbaview shield was placed over the catheter at the insertion site. The patient tolerated the procedure without any hemodynamic compromise. At time of procedure completion, all ports aspirated and flushed properly. Post-procedure chest x-ray is pending at this time. Estimated blood loss is 5 cc. Patient plan of care was discussed with the attending physician, Dr. Vuong. Gwendolyn Cain DO PGY-1
[2025-08-26 17:53] LABS: Lactate (Lactic Acid) 2.5 mMol/L (0.4-2.0)
[2025-08-26 17:54] LABS: Base Excess, Venous 2 (-3-3); O2 Saturation, Venous 89 % (96-97); PCO2, Venous 37 mmHg (36-56); PO2, Venous 51 mmHg (15-58); pH, Venous 7.46 (7.33-7.66)
--- NOTE | 2025-08-26 18:04 | ESHP_ITS ---
<Statement entered by Madhu Aguirre MD - 08/27/25 09:10> I have reviewed the note and agree with the resident's assessment & plan with exceptions as below. I have personally reviewed labs, imaging, home meds/prior records, examined the patient, formulated and discussed management plan with my attending 70-year-old female with past medical history of Down syndrome, seizure disorder on Keppra, asthma, recurrent pneumonias, hypothyroidism was admitted to ICU due to shock likely distributive as bedside echo that showed variable IVC and patient was fluid responsive. In the ER patient was placed on Levophed and was on high doses at 0.11 and had gotten 2 L of IV fluids only. Source of infection was likely pneumonia as patient did have some cough and center imaging that showed some pneumonia pattern. Patient had a central line placed given increased dosages of Levophed required, but likely will decrease with IV resuscitation after 1 more liter of IV fluids was given. Patient will continue azithromycin and Rocephin as vasopressor support has been downtrending after 1 L of additional IV fluids, but if patient's vasopressor requirements increased we will likely broaden antibiotic coverage. Otherwise no other complaints at this time. Madhu Aguirre PGY2 Disclaimer: Even though this this note was dictated by speech recognition and even though it was carefully revised there may still be minor errors in addiction medicine physician due to voice recognition software. Documentation for date of: 08/26/25 HPI History of Present Illness History of present illness: Patient is a 70-year-old female with past medical history of Down syndrome, seizure disorder on Keppra, asthma, recurrent pneumonias, hypothyroidism who presented from shelter to the ED on 08/26/25 for low oxygen level, lethargy, and altered mentation since yesterday. Per crime lab technician, patient has also had low grade fevers (no more than 100.1F) and cough. No sick contacts. At baseline, patient is alert and oriented to self only. In ED, patient became hypothermic with temp of 96.4, improved on Gricelda hugger. BP dropped to 81/31 with MAP of 52, given 1L IV fluids during transit and another 1L LR in the ED with no improvement. Started on Levophed 0.05 and uptitrated to 0.11. CBC unremarkable. CMP was also unremarkable with exception of lactic acid of 5.4. CXR showed left greater than right bibasilar opacities concerning for infection, also noted possible pneumothorax versus skin fold. Follow up CT chest showed left based pneumonia with small left pleural effusion, no pneumothorax. Also noted right apical probable pleural scarring, large calcified granuloma in right upper lobe, and mild enlargement of cardiac contour with moderate vascular congestion. Was given ceftriaxone and azithromycin x1 in ED. EKG showed sinus rhythm. Patient was admitted for shock likely distributive in the setting of pneumonia. Review of Systems Review of systems otherwise negative except what is mentioned above. Past Medical History: as above Family History: Unknown Surgical History: Unknown Social History: Denies history of smoking, denies current alcohol use, denies recreational drug use. 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 Current Medications: aspirin 81 mg, calcium carbonate-vitamin D3, cranberry extract 500 mg, Docusate 100 mg, Levetiracetam 1000 mg, Keppra 1,500 mg every afternoon at 3PM, Levothyroxine 75 mg, loratadine 10 mg, Montelukast 10mg, polyethylene glycole Allergies: No known drug allergies Exam Vital Signs Temp Pulse Resp BP Pulse Ox O2 Del Method O2 Flow Rate 98.2 F 72 15 93/52 L 95 Nasal Cannula 2 08/26/25 17:20 08/26/25 17:20 08/26/25 17:20 08/26/25 17:20 08/26/25 17:20 08/26/25 17:20 08/26/25 17:20 Narrative Exam Physical Exam General: Awake and in no acute distress. Nonverbal at baseline but will occasionally answer yes/no. Down syndrome. HEENT: Right pupil mildly larger than left, both equally reactive to light. Normocephalic, atraumatic, mucous membranes moist. Heart: Regular rate and rhythm, normal S1 and S2, no murmurs appreciated. Lungs: Clear to auscultation with no wheezing or crackles. Abdomen: Soft, nondistended, nontender, positive bowel sounds. No guarding or rebound tenderness. Neurologic: Unable to assess orientation as patient is nonverbal. No gross neurological deficit, and patient able to move all 4 extremities. Extremities: No edema. Skin: Dry skin at bilateral feet. No rash or ecchymoses. Results: Labs 08/27/25 04:56 08/27/25 04:56 Labs: Short CBC 08/26/25 Range/Units 11:01 WBC 6.8 (3.6-11.0) Thou/mm3 Hgb 14.5 (12.0-16.0) g/dL Hct 43.2 (36.0-46.0) % Plt Count 220 (140-440) Thou/mm3 BMP 08/26/25 11:01 Sodium 140 Potassium 4.6 Chloride 103 Carbon Dioxide 26.2 BUN 8 L Creatinine 0.8 Glucose 152 H Calcium 8.6 Liver Function 08/26/25 Range/Units 11:01 Total Bilirubin 0.2 L (0.3-1.2) mg/dL AST 29 (0-34) U/L ALT 15 (10-49) U/L Alkaline Phosphatase 104 (46-116) U/L Albumin 3.9 (3.4-4.8) gm/dL Urine 08/26/25 Range/Units 11:01 Urine Color Lt-Yellow (Lt Yel-Yel) Urine Clarity Clear (Clear/Hazy) Urine pH 6.0 (5.0-7.0) Ur Specific Bath 1.021 (1.001-1.035) Urine Protein Negative (Neg - Trace) Urine Glucose (UA) Negative (Negative) ABG Interpretation ABG results: 08/26/25 17:50 VBG pH 7.46 VBG pCO2 37 VBG pO2 51 VBG Base Excess 2 Quality Measures Quality Measures none Advance care planning discussed with:: legal surragate Medications Home Medications and Allergies Home Medications ?Medication ?Instructions ?Recorded ?Confirmed ?Type aspirin 81 mg chewable tablet 81 mg PO DAILY Elevated Lipids 09/23/23 08/26/25 History calcium 600 mg (as 1 tab PO BID 09/23/23 History carbonate)-vitamin D3 10 mcg (400 unit) tablet docusate sodium 100 mg capsule 100 mg PO BID Constipat ion 09/23/23 08/26/25 History levothyroxine 75 mcg tablet 75 mcg PO DAILY 09/23/23 1 10/26/24 History loratadine 10 mg tablet 10 mg PO DAILY 09/23/2308/05 History montelukast 10 mg tablet 10 mg PO DAILY 09/23/2308/05 History quetiapine 100 mg tablet 100 mg PO HS 09/23/23 History Held on 05/29/25. Instructions: Resume on 06/05/25. To be reviewed and resumed by the neurologist cranberry extract 500 mg capsule 500 mg PO QDAY 08/26/25 History (Cranberry Concentrate) methenamine hippurate 1 gram 1 g PO QDAY 08/10/2408/05 History tablet (Hiprex) polyethylene glycol 3350 17 17 g PO QDAY 03/13/2508/05 History gram/dose oral powder cenobamate 50 mg tablet (Xcopri) 50 mg PO QDAY 5 08/26/25 History levetiracetam 500 mg tablet 2,500 mg PO BID 08/26/25 1 10/26/24 History levetiracetam 750 mg tablet mg PO BID 08/26/25 Histor y Allergies Allergy/AdvReac Type Severity Reaction Status Date / Time No Known Allergies Allergy Unverified 03/12/25 16:06 Visit Medications Acetaminophen (Acetaminophen 325 Mg Tablet) 650 mg PO Q6H PRN PRN Reason: Fever >101.5 or pain 1-3 Stop: 09/25/25 16:22 Norepinephrine/Dextrose (Levophed In D5w 8mg/250ml) 8 mg in 250 mls @ 4.04 mls/hr IV .Q24H PRN; Protocol PRN Reason: PER PROTOCOL Stop: 09/25/25 14:50 Last Titration: 08/26/25 18:00 Dose: 0.13 mcg/kg/min, 10.503 mls/hr Levetiracetam (Levetiracetam Inj 100 Mg/Ml Vial 5ml) 1,000 mg IVP QDAY JERRY Stop: 09/26/25 08:59 Levetiracetam (Levetiracetam Inj 100 Mg/Ml Vial 5ml) 1,500 mg IVP Q24H JERRY Stop: 09/26/25 14:59 Midazolam HCl (Midazolam Inj 1 Mg/Ml Vial 2 Ml) 4 mg IVP Q5MIN PRN PRN Reason: SEIZURE Sodium Chloride (Sodium Chloride Rt [place] 0.9% 3 Ml Nebu) 3 ml INH PRN PRN PRN Reason: SOLN Stop: 09/25/25 10:56 Last Admin: 08/26/25 11:31 Dose: 3 ml Discontinued Medications Albuterol (Albuterol Rt 2.5 Mg/0.5 Ml Nebu) 10 mg INH X1 ONE Stop: 08/26/25 10:58 Last Admin: 08/26/25 11:30 Dose: 10 mg Ceftriaxone Sodium/Dextrose (Rocephin/D5w 1gm Iv Premix) 1 gm in 50 mls @ 100 mls/hr IV STAT STA Stop: 08/26/25 11:20 Last Infusion: 08/26/25 11:43 Dose: Infused Lactated Ringer's (Lactated Ringers) 1,000 mls @ 999 mls/hr IV .Q1H1M ONE Stop: 08/26/25 14:11 Last Infusion: 08/26/25 14:52 Dose: Infused Azithromycin 500 mg/ Sodium (Chloride) 250 mls @ 250 mls/hr IV STAT STA Stop: 08/26/25 14:10 Last Infusion: 08/26/25 14:52 Dose: Infused Lactated Ringer's (Lactated Ringers) 1,000 mls @ 999 mls/hr IV .Q1H1M ONE Stop: 08/26/25 17:21 Last Infusion: 08/26/25 17:22 Dose: Infused Ipratropium [place] (Ipratropium Rt 0.5 Mg/ 2.5 Ml Nebu) 1 mg INH X1 ONE Stop: 08/26/25 10:59 Last Admin: 08/26/25 11:30 Dose: 1 mg Levetiracetam (Levetiracetam Inj 100 Mg/Ml Vial 5ml) 500 mg IVP X1 ONE Stop: 08/26/25 13:14 Last Admin: 08/26/25 13:40 Dose: 500 mg Levetiracetam (Levetiracetam Inj 100 Mg/Ml Vial 5ml) 500 mg IVP X1 ONE Stop: 08/26/25 14:36 Last Admin: 08/26/25 14:59 Dose: 500 mg Levetiracetam (Levetiracetam Inj 100 Mg/Ml Vial 5ml) 1,500 mg IVP X1 ONE Stop: 08/26/25 16:01 Last Admin: 08/26/25 16:10 Dose: 1,500 mg Assessment & Plan Plan Patient is a 70-year-old female with past medical history of Down syndrome, seizure disorder on Keppra, asthma, recurrent pneumonias, hypothyroidism who presented from shelter to the ED on 08/26/25 for low oxygen level, lethargy, and altered mentation for the past day. Admitted to ICU for shock likely distributive in the setting of pneumonia. 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 - Witnessed generalized seizure in ED, lasted only 10 seconds. Treatment: - Continue home dose Keppra as above Treatment follow up: - Seizure precautions - Neuro q1hr check [facility] #Shock Likely distributive in setting of pneumonia Diagnostic work up: - BP dropped to 81/31 with MAP of 52 - S/p 1L IV fluids x2 with minimal improvement, started on Levophed in the ED - Bedside US showed adequate cardiac contractility, no D sign or pericardial effusion observed, low suspicion for obstructive shock. - IVC 1.5 cm and compressible on bedside echo. - Right IJ central catheter placed in ED, consent obtained by conservator - Based on VBG from right IJ, cardiac index 4 and cardiac output 5.2, low suspicion for cardiogenic shock. - CXR 08/26 showed left > right bibasilar opacities concerning for infection - CT chest 08/26 showed left based PNA with right apical probable pleural scarring and large calcified granuloma in right upper lobe (seen on previous CT). Also noted mild enlargement cardiac contour with moderate vascular congestion. Treatment: - S/p CFX 1g and azithromycin x1 in ED - S/p 3L IV fluids - On Levophed - Treat underlying cause of shock Treatment follow up: - Continue CFX and azithromycin for broad spectrum coverage - Wean pressors as tolerated - If Levophed requirements increase, consider further broadening coverage #Hx HFpEF (EF 55-60%) Diagnostic work up: - Echo 05/16/25 showed normal LV size and function. There is grade I diastolic dysfunction. Estimated EF at 55-60%. The RV is normal in size and systolic function. The estimated RVSP, 42 mmHg. RAP 5. Trace TR. - Not on any GDMT at home Treatment: - No active treatment Pulm #Left lower base pneumonia #Hx recurrent PNAs Diagostic work up; - Low grade fevers and nonproductive cough at shelter and hypothermia in ED - WBC WNL - Influenza A and B negative, COVID negative - CXR 08/26 showed left > right bibasilar opacities concerning for infection - CT chest 08/26 showed left based PNA with right apical probable pleural scarring and large calcified granuloma in right upper lobe (seen on previous CT). Also noted mild enlargement cardiac contour with moderate vascular congestion. Treatment: - CFX 1g (08/26- - Azithryomycin (08/26- - Oxygen PRN Treatment follow up: - Follow up blood cultures GI No active disease Renal #Lactic acidosis Likely in setting of shock Diagnostic work up: - Lactic acid 5.4 -> 6.3 -> 2.5 Treatment: - S/p 3L IV fluids Treatment follow up: - Trend lactic q3hr Endo #Hx hypothyroidism Takes levothyroxine 75 mcg daily at home, last dose yesterday Diagnostic work up: - TSH 0.73 and T4 1.33 Treatment - Continue home dose levothyroxine ID #Left lower base pneumonia #Hx recurrent PNAs Diagostic work up; - Low grade fevers and nonproductive cough at shelter and hypothermia in ED - WBC WNL - CXR 08/26 showed left > right bibasilar opacities concerning for infection - CT chest 08/26 showed left based PNA with right apical probable pleural scarring and large calcified granuloma in right upper lobe (seen on previous CT). Also noted mild enlargement cardiac contour with moderate vascular congestion. Treatment: - CFX 1g (08/26- - Azithryomycin (08/26- Treatment follow up: - Follow up blood cultures ICU Health maintenance: Mechanical ventilation: none Sedation: none Diet: DVT prophylaxis: Heparin SQ GI prophylaxis: none Rodriguez: no Lines: PIV, Right IJ central line Antibiotics: CFX 1g and azithromycin CODE STATUS: FULL Patient plan of care was discussed with the senior resident, Dr. Stevens, and attending physician, Dr. Russ Cain DO, PGY-1
[2025-08-26 20:51] LABS: Reflex Lactate? Y
[2025-08-26 21:42] LABS: Lactate (Lactic Acid) 2.5 mMol/L (0.4-2.0)
[2025-08-27] VITALS (67 sets, daily range): BP systolic 88–142; BP diastolic 36–91; PULSE 50–140; RESP 2–31; TEMP 36.6–37.1; O2SAT 91–100
[2025-08-27 00:22] LABS: Lactate (Lactic Acid) 1.0 mMol/L (0.4-2.0)
[2025-08-27 00:38] LABS: Reflex Lactate? Y
[2025-08-27 06:09] LABS: Basophils # (Auto) 0.0 Thou/mm3 (0.0-0.2); Basophils % (Auto) 1 % (0-2.5); Eosinophils # (Auto) 0.1 Thou/mm3 (0.0-0.5); Eosinophils % (Auto) 2 % (0-10); Hematocrit 34.3 % (36.0-46.0); Hemoglobin 11.8 g/dL (12.0-16.0); Immature Granulocytes Auto 0.04 Thou/mm3 (0.00-0.00); Lymphocytes # (Auto) 1.1 Thou/mm3 (1.0-4.8); Lymphocytes % (Auto) 23 % (10-50); Mean Corpuscular HGB Conc 34.4 g/dl (31.0-37.0); Mean Corpuscular Hemoglobin 32.7 pg (25.0-35.0); Mean Corpuscular Volume 95 fL (80-100); Monocytes # (Auto) 0.6 Thou/mm3 (0.0-0.8); Monocytes % (Auto) 12 % (0-12); Neutrophils # (Auto) 2.9 Thou/mm3 (1.8-7.7); Neutrophils % (Auto) 62 % (37-80); Nucleated Red Blood Cell # 0.00 Thou/mm3 (0.00-0.00); Nucleated Red Blood Cell % 0 /100 WBC (0); Platelet Count 184 Thou/mm3 (140-440); RDW Standard Deviation 45.1 fL (36.4-46.3); Red Blood Count 3.61 Miln/mm3 (4.00-5.20); White Blood Count 4.8 Thou/mm3 (3.6-11.0)
[2025-08-27 07:13] LABS: Alanine Aminotransferase 12 U/L (10-49); Albumin, Serum 3.2 gm/dL (3.4-4.8); Albumin/Globulin Ratio 1.5 (1.2-2.2); Alkaline Phosphatase 82 U/L (46-116); Anion Gap 10 (7-16); Aspartate Amino Transferase 21 U/L (0-34); BUN/Creatinine Ratio 10 Ratio (12-20); Bilirubin,Total 0.2 mg/dL (0.3-1.2); Blood Urea Nitrogen < 5 mg/dL (9-23); Calcium 8.0 mg/dL (8.3-10.6); Calcium (Corrected) 8.6 mg/dL (8.5-10.1); Carbon Dioxide 28.3 mMol/L (20.0-31.0); Chloride 103 mMol/L (98-107); Creatinine (Component) 0.5 mg/dL (0.6-1.3); Estimated Creatinine Clearance 65.6 mL/min (>60); Globulin 2.2 gm/dL (2.3-3.5); Glucose 91 mg/dL (74-106); Magnesium 1.6 mg/dL (1.6-2.6); Osmolality,Calculated 278 (275-295); Phosphorous 3.0 mg/dL (2.4-5.1); Potassium 3.5 mMol/L (3.4-5.1); Sodium 141 mMol/L (136-145); Total Protein 5.4 gm/dL (5.7-8.2); eGFR > 60 See Note
[2025-08-27] MEDS: levETIRAcetam INJ 100 MG/ML VIAL 5ML 1000 MG IVP (07:59)
[2025-08-27] MEDS: Magnesium Sulfate 4 GM Ivpb 4 GM/50 ML BAG IV (09:03)
[2025-08-27] MEDS: POTASSIUM CHL 20 mEq IVPB 20 MEQ/100 ML BAG 50 MEQ IV ×2 (09:03→10:48)
[2025-08-27] MEDS: LEVOTHYROXINE SODIUM 25 MCG TABLET 75 MCG PO (10:10)
--- NOTE | 2025-08-27 11:19 | ESPR_ITS ---
<Statement entered by Madhu Aguirre MD - 08/27/25 12:05> I have reviewed the note and agree with the resident's assessment & plan with exceptions as below. I have personally reviewed labs, imaging, home meds/prior records, examined the patient, formulated and discussed management plan with my attending Patient was seen and examined bedside's morning. No acute overnight events. Patient is completely off Levophed since earlier in the morning and has been stable throughout the morning. Did order send CPT as patient does have some congestion. There was no pneumothorax on chest CTA chest x-ray. Will continue with azithromycin and Rocephin for now. Otherwise patient stable enough to be downgraded to medical floors. Madhu Aguirre PGY2 Disclaimer: Even though this this note was dictated by speech recognition and even though it was carefully revised there may still be minor errors in ham clerk due to voice recognition software. Documentation for date of: 08/27/25 Subjective Subjective Interval history: History of present illness: Patient is a 70-year-old female with past medical history of Down syndrome, seizure disorder on Keppra, asthma, recurrent pneumonias, hypothyroidism who presented from senior living to the ED on 08/26/25 for low oxygen level, lethargy, and altered mentation since yesterday. Per sewing demonstrator, patient has also had low grade fevers (no more than 100.1F) and cough. No sick contacts. At baseline, patient is alert and oriented to self only. In ED, patient became hypothermic with temp of 96.4, improved on Gricelda hugger. BP dropped to 81/31 with MAP of 52, given 1L IV fluids during transit and another 1L LR in the ED with no improvement. Started on Levophed 0.05 and uptitrated to 0.11. CBC unremarkable. CMP was also unremarkable with exception of lactic acid of 5.4. CXR showed left greater than right bibasilar opacities concerning for infection, also noted possible pneumothorax versus skin fold. Follow up CT chest showed left based pneumonia with small left pleural effusion, no pneumothorax. Also noted right apical probable pleural scarring, large calcified granuloma in right upper lobe, and mild enlargement of cardiac contour with moderate vascular congestion. Was given ceftriaxone and azithromycin x1 in ED. EKG showed sinus rhythm. Patient was admitted for shock likely distributive in the setting of pneumonia. Past Medical History: as above Family History: Unknown Surgical History: Unknown Social History: Denies history of smoking, denies current alcohol use, denies recreational drug use. 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 Current Medications: aspirin 81 mg, calcium carbonate-vitamin D3, cranberry extract 500 mg, Docusate 100 mg, Levetiracetam 1000 mg, Keppra 1,500 mg every afternoon at 3PM, Levothyroxine 75 mg, loratadine 10 mg, Montelukast 10mg, polyethylene glycole Allergies: No known drug allergies 08/27/25: Patient was seen and assessed at bedside. No acute events overnight. No hypothermia or seizure activity noted. BP stable off Leovphed since 11 PM last night. Passed swallow screen, restarted on home pureed diet. Lactic acidosis resolved. Blood cultures negative for the past 24 hours. Transitioned all home medications back to PO. Continue CFX and azithromycin. Follow up final blood culture results. Exam Vital Signs Temp Pulse Resp BP Pulse Ox O2 Del Method O2 Flow Rate 98.2 F 58 L 12 120/68 100 Room Air 2 08/27/25 06:05 08/27/25 10:00 08/27/25 10:00 08/27/25 10:00 08/27/25 10:00 08/27/25 06:05 08/27/25 02:35 FiO2 2 08/26/25 20:42 Narrative Exam Physical Exam General: Awake and in no acute distress. Nonverbal at baseline but will occasionally answer yes/no. Down syndrome, bedbound. HEENT: Right pupil mildly larger than left, both equally reactive to light. Normocephalic, atraumatic, mucous membranes moist. Heart: Regular rate and rhythm, normal S1 and S2, no murmurs appreciated. Lungs: Clear to auscultation with no wheezing or crackles. Abdomen: Soft, nondistended, nontender, positive bowel sounds. No guarding or rebound tenderness. Neurologic: Unable to assess orientation as patient is nonverbal and does not follow commands. Extremities: No edema. Skin: Dry skin at bilateral feet. No rash or ecchymoses. Objective Labs 08/27/25 04:56 08/27/25 04:56 Labs: Laboratory Results - last 24 hr 11/08/26/25 08/26/25 11:01 11:07 14:26 WBC 6.8 RBC 4.45 Hgb 14.5 Hct 43.2 MCV 97 MCH 32.6 MCHC 33.6 RDW Std Deviation 46.3 Plt Count 220 Neut % (Auto) 80 Lymph % (Auto) 12 [place] % (Auto) 7 Eos % (Auto) 1 Baso % (Auto) 1 Neut # (Auto) 5.4 Lymph # (Auto) 0.8 L [place] # (Auto) 0.5 Eos # (Auto) 0.0 Baso # (Auto) 0.0 Immature Gran # (Auto) 0.03 H Absolute Nucleated RBC 0.00 Immature Gran % 0 Nucleated RBC % 0 PT 10.7 INR 1.0 APTT 31.0 VBG pH VBG pCO2 VBG pO2 VBG O2 Sat (Gisele) VBG Base Excess Sodium 140 Potassium 4.6 Chloride 103 Carbon Dioxide 26.2 Anion Gap 11 BUN 8 L Creatinine 0.8 Estim Creat Clear Calc 41.0 L eGFR > 60 BUN/Creatinine Ratio 10 L Glucose 152 H Calculated Osmolality 280 Lactic Acid 5.4 H* 6.3 H* Calcium 8.6 Corrected Calcium 8.7 Phosphorus Magnesium Total Bilirubin 0.2 L AST 29 ALT 15 Alkaline Phosphatase 104 B-Natriuretic Peptide 55 Total Protein 6.3 Albumin 3.9 Globulin 2.4 Albumin/Globulin Ratio 1.6 Procalcitonin 0.10 TSH 0.73 Free T4 1.33 Ur Collection Type Clean Catch Urine Color Lt-Yellow Urine Clarity Clear Urine pH 6.0 Ur Specific [place] 1.021 Urine Protein Negative Urine Glucose (UA) Negative Urine Ketones Negative Urine Blood Negative Urine Nitrite Negative Urine Bilirubin Negative Urine Urobilinogen (Auto) Negative Ur Leukocyte Esterase Negative Urine RBC 2 Urine WBC < 1 Ur Squamous Epith Cells 1 Urine Bacteria None Influenza A (Rapid) Negative Influenza B (Rapid) Negative 08/26/25 08/26/25 08/27/25 17:50 21:17 00:05 WBC RBC Hgb Hct MCV MCH MCHC RDW Std Deviation Plt Count Neut % (Auto) Lymph % (Auto) [place] % (Auto) Eos % (Auto) Baso % (Auto) Neut # (Auto) Lymph # (Auto) [place] # (Auto) Eos # (Auto) Baso # (Auto) Immature Gran # (Auto) Absolute Nucleated RBC Immature Gran % Nucleated RBC % PT INR APTT VBG pH 7.46 VBG pCO2 37 VBG pO2 51 VBG O2 Sat (Gisele) 89 L VBG Base Excess 2 Sodium Potassium Chloride Carbon Dioxide Anion Gap BUN Creatinine Estim Creat Clear Calc eGFR BUN/Creatinine Ratio Glucose Calculated Osmolality Lactic Acid 2.5 H 2.5 H 1.0 Calcium Corrected Calcium Phosphorus Magnesium Total Bilirubin AST ALT Alkaline Phosphatase B-Natriuretic Peptide Total Protein Albumin Globulin Albumin/Globulin Ratio Procalcitonin TSH Free T4 Ur Collection Type Urine Color Urine Clarity Urine pH Ur Specific [place] Urine Protein Urine Glucose (UA) Urine Ketones Urine Blood Urine Nitrite Urine Bilirubin Urine Urobilinogen (Auto) Ur Leukocyte Esterase Urine RBC Urine WBC Ur Squamous Epith Cells Urine Bacteria Influenza A (Rapid) Influenza B (Rapid) 08/27/25 04:56 WBC 4.8 RBC 3.61 L Hgb 11.8 L D Hct 34.3 L MCV 95 MCH 32.7 MCHC 34.4 RDW Std Deviation 45.1 Plt Count 184 D Neut % (Auto) 62 Lymph % (Auto) 23 [place] % (Auto) 12 Eos % (Auto) 2 Baso % (Auto) 1 Neut # (Auto) 2.9 Lymph # (Auto) 1.1 [place] # (Auto) 0.6 Eos # (Auto) 0.1 Baso # (Auto) 0.0 Immature Gran # (Auto) 0.04 H Absolute Nucleated RBC 0.00 Immature Gran % 1 H Nucleated RBC % 0 PT INR APTT VBG pH VBG pCO2 VBG pO2 VBG O2 Sat (Gisele) VBG Base Excess Sodium 141 Potassium 3.5 D Chloride 103 Carbon Dioxide 28.3 Anion Gap 10 BUN < 5 L Creatinine 0.5 L Estim Creat Clear Calc 65.6 eGFR > 60 BUN/Creatinine Ratio 10 L Glucose 91 D Calculated Osmolality 278 Lactic Acid Calcium 8.0 L Corrected Calcium 8.6 Phosphorus 3.0 Magnesium 1.6 Total Bilirubin 0.2 L AST 21 ALT 12 Alkaline Phosphatase 82 D B-Natriuretic Peptide Total Protein 5.4 L Albumin 3.2 L D Globulin 2.2 L Albumin/Globulin Ratio 1.5 Procalcitonin TSH Free T4 Ur Collection Type Urine Color Urine Clarity Urine pH Ur Specific [place] Urine Protein Urine Glucose (UA) Urine Ketones Urine Blood Urine Nitrite Urine Bilirubin Urine Urobilinogen (Auto) Ur Leukocyte Esterase Urine RBC Urine WBC Ur Squamous Epith Cells Urine Bacteria Influenza A (Rapid) Influenza B (Rapid) ABG Interpretation ABG results: 08/26/25 17:50 VBG pH 7.46 VBG pCO2 37 VBG pO2 51 VBG Base Excess 2 Quality Measures Quality Measures none Advance care planning discussed with:: legal surragate Assessment & Plan Assessment Current Active Medications: Generic Name Dose Route Start Last Admin Trade Name Freq PRN Reason Stop Dose Admin Acetaminophen 650 mg 08/26/25 16:23 Acetaminophen 325 Mg Tablet PO 09/25/25 16:22 Q6H PRN Fever >101.5 or pain 1-3 Albuterol/Ipratropium 3 ml 08/26/25 18:23 Albuterol/Ipratropium (Duoneb) Rt Shannon 3 Ml Nebu INH 09/25/25 18:59 Q4HRRT PRN wheezing or SOB Aspirin 81 mg 08/28/25 09:00 Aspirin Ec 81 Mg Tabec PO 09/27/25 08:59 QDAY JERRY Docusate Sodium 100 mg 08/28/25 09:00 Docusate Sod 100 Mg Capsule PO 09/27/25 08:59 BID JERRY Protocol Azithromycin 500 mg/ Sodium 250 mls @ 250 mls/hr 08/27/25 14:00 Chloride IV 09/03/25 13:59 QDAY@1400 JERRY Ceftriaxone Sodium/Dextrose 1 gm in 50 mls @ 100 mls/hr 08/27/25 14:00 Rocephin/D5w 1gm Iv Premix IV 09/03/25 13:59 QDAY@1400 JERRY Potassium Chloride 20 meq in 100 mls @ 50 mls/hr 08/27/25 08:46 08/27/25 10:48 Kcl Ivpb IV 08/27/25 12:45 50 mls/hr Q2H JERRY Administration Magnesium Sulfate 4 gm in 50 mls @ 12.5 mls/hr 08/27/25 08:46 08/27/25 09:03 Magnesium Sulfate Ivpb IV 08/27/25 12:45 12.5 mls/hr X1 ONE Administration Levetiracetam 1,000 mg 08/28/25 09:00 Levetiracetam 250 Mg Tablet PO 09/27/25 08:59 QDAY JERRY Levetiracetam 1,500 mg 08/27/25 15:00 Levetiracetam 250 Mg Tablet PO 09/26/25 14:59 Q24H JERRY Levothyroxine Sodium 75 mcg 08/27/25 06:00 08/27/25 06:35 Levothyroxine Sodium 25 Mcg Tablet PO 09/26/25 05:59 Not Given ACBR JERRY Midazolam HCl 4 mg 08/26/25 16:03 Midazolam Inj 1 Mg/Ml Vial 2 Ml IVP Q5MIN PRN SEIZURE Sodium Chloride 3 ml 08/26/25 10:57 08/26/25 11:31 Sodium Chloride Rt Shannon 0.9% 3 Ml Nebu INH 09/25/25 10:56 3 ml PRN PRN Administration SOLN Plan Patient is a 70-year-old female with past medical history of Down syndrome, seizure disorder on Keppra, asthma, recurrent pneumonias, hypothyroidism who presented from senior living to the ED on 08/26/25 for low oxygen level, lethargy, and altered mentation for the past day. Admitted to ICU for shock likely distributive in the setting of pneumonia. Downgraded today to med/surg as patient has been stable off pressors. 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 - Witnessed generalized seizure in ED, lasted only 10 seconds. Treatment: - Transition back to oral home dose Keppra Treatment follow up: - Seizure precautions CVS #Shock (resolved) Likely distributive in setting of pneumonia Diagnostic work up: - BP dropped to 81/31 with MAP of 52 - S/p 1L IV fluids x2 with minimal improvement, started on Levophed in the ED - Bedside US showed adequate cardiac contractility, no D sign or pericardial effusion observed, low suspicion for obstructive shock. - IVC 1.5 cm and compressible on bedside echo. - Right IJ central catheter placed in ED, consent obtained by conservator - Based on VBG from right IJ, cardiac index 4 and cardiac output 5.2, low suspicion for cardiogenic shock. - CXR 08/26 showed left > right bibasilar opacities concerning for infection - CT chest 08/26 showed left based PNA with right apical probable pleural scarring and large calcified granuloma in right upper lobe (seen on previous CT). Also noted mild enlargement cardiac contour with moderate vascular congestion. - Blood cultures negative for 24 hours Treatment: - S/p 3L IV fluids - Off Levophed since 11PM 08/26 - On CFX 1g and azithromycin (08/26- Treatment follow up: - Follow up blood cultures #Hx HFpEF (EF 55-60%) Diagnostic work up: - Echo 05/16/25 showed normal LV size and function. There is grade I diastolic dysfunction. Estimated EF at 55-60%. The RV is normal in size and systolic function. The estimated RVSP, 42 mmHg. RAP 5. Trace TR. - Not on any GDMT at home Treatment: - No active treatment Pulm #Left lower base pneumonia #Hx recurrent PNAs Diagostic work up; - Low grade fevers and nonproductive cough at senior living and hypothermia in ED - WBC WNL - Influenza A and B negative, COVID negative - CXR 08/26 showed left > right bibasilar opacities concerning for infection - CT chest 08/26 showed left based PNA with right apical probable pleural scarring and large calcified granuloma in right upper lobe (seen on previous CT). Also noted mild enlargement cardiac contour with moderate vascular congestion. - Blood cultures negative for the past 24 hours Treatment: - CFX 1g (08/26- - Azithryomycin (08/26- - Oxygen PRN Treatment follow up: - Follow up blood cultures #Large calcified granuloma in right upper lobe Diagnostic work up: - Found on CT chest - Also noted on previous CT chest 05/28/25 Treatment: - No active treatment Treatment follow up: - No monitoring needed GI No active disease Renal #Lactic acidosis (resolved) Likely in setting of shock Diagnostic work up: - Lactic acid 5.4 -> 6.3 -> 2.5 -> 1 Endo #Hx hypothyroidism Takes levothyroxine 75 mcg daily at home, last dose yesterday Diagnostic work up: - TSH 0.73 and T4 1.33 Treatment - Levothyroxine 75 mcg daily MSK #Chronic osteoporotic compression fractures of T4-T7, L1 Bedbound from senior living Diagnostic work up: - Incidental finding on CT chest - CT chest 05/28/25 noted compression fracture of L1 - No signs of pain on exam Treatment: - Continue home calcium carbonate-vitD3 BID Treatment follow up: - Consider outpatient physical therapy ID #Left lower base pneumonia #Hx recurrent PNAs Diagostic work up; - Low grade fevers and nonproductive cough at senior living and hypothermia in ED - WBC WNL - CXR 08/26 showed left > right bibasilar opacities concerning for infection - CT chest 08/26 showed left based PNA with right apical probable pleural scarring and large calcified granuloma in right upper lobe (seen on previous CT). Also noted mild enlargement cardiac contour with moderate vascular congestion. - Blood cultures negative for 24 hours Treatment: - CFX 1g (08/26- - Azithryomycin (08/26- Treatment follow up: - Follow up blood cultures ICU Health maintenance: Mechanical ventilation: none Sedation: none Diet: dysphagia diet DVT prophylaxis: Heparin SQ GI prophylaxis: none Rodriguez: no Lines: PIV Antibiotics: CFX 1g, azithromycin CODE STATUS: FULL Patient plan of care was discussed with the senior resident, Dr. Stevens, and attending physician, Dr. Russ Cain DO, PGY-1 Attending Provider Attestation/Addendum pt seen and examined, d/w ICU resident. agree with above, in brief this is a 70-year-old female with a history of Down syndrome who presented to the ER from her senior living for pneumonia. She was found to meet criteria for sepsis, she was hypotensive despite fluid resuscitation and eventually started on vasopressors. She was admitted to the ICU for septic shock. She was placed on antibiotics and evaluated for fluid responsiveness. Overnight in the ICU she did well and received additional volume. This morning she is off vasopressors maintaining good hemodynamics. Her lactic acidosis resolved. Overall she is doing well and stable for downgrade Case discussed with ICU team Labs, imaging and records reviewed ~38 minutes required for evaluation, exam, review, intervention, discussion formulation of plan of care for this acutely ill patient with pneumonia
--- NOTE | 2025-08-27 13:52 | PD.RESPRO ---
Documentation for date of: 08/27/25 Subjective Subjective Interval history: Patient is seen and examined at bedside. She is a 70-year-old female with significant past medical history of Down syndrome, seizure disorder on Keppra and Xcopri, asthma, recurrent pneumonia, hypothyroidism was brought from [facility] with chief complaints of increased respiratory secretions. Caregiver at the bedside reported that the other people at the [place] [facility] are sick and noted to have respiratory illness. Noted to have shock at the time of admission for which patient was admitted to the ICU and is on vasopressors for short period of time. Patient is eventually weaned off vasopressor. As the patient is doing good, downgrade to floor for further management. Will continue ceftriaxone and azithromycin. Exam Vital Signs Temp Pulse Resp BP Pulse Ox O2 Del Method O2 Flow Rate 97.9 F 50 L 21 H 125/67 100 Room Air 2 08/27/25 12:05 08/27/25 12:05 08/27/25 12:05 08/27/25 12:05 08/27/25 12:05 08/27/25 06:05 08/27/25 02:35 FiO2 2 08/26/25 20:42 Narrative Exam General: Awake. Noted Down syndrome facies and hair loss. HEENT: Normocephalic, atraumatic, mucous membranes moist. Heart: Regular rate and rhythm, no murmurs. Lungs: Clear to auscultation with no wheezing or crackles. Abdomen: Soft, nondistended, nontender, positive bowel sounds. ?No guarding or rebound tenderness. Neurologic: Alert and oriented x3, no gross neurological deficit, and patient able to move all 4 extremities. Extremities: No edema. Skin: No rash or ecchymoses. Objective Labs 08/29/25 04:44 08/29/25 04:44 Labs: Laboratory Results - last 24 hr 08/26/25 08/26/25 08/26/25 14:26 17:50 21:17 WBC RBC Hgb Hct MCV MCH MCHC RDW Std Deviation Plt Count Neut % (Auto) Lymph % (Auto) [place] % (Auto) Eos % (Auto) Baso % (Auto) Neut # (Auto) Lymph # (Auto) [place] # (Auto) Eos # (Auto) Baso # (Auto) Immature Gran # (Auto) Absolute Nucleated RBC Immature Gran % Nucleated RBC % VBG pH 7.46 VBG pCO2 37 VBG pO2 51 VBG O2 Sat (Gisele) 89 L VBG Base Excess 2 Sodium Potassium Chloride Carbon Dioxide Anion Gap BUN Creatinine Estim Creat Clear Calc eGFR BUN/Creatinine Ratio Glucose Calculated Osmolality Lactic Acid 6.3 H* 2.5 H 2.5 H Calcium Corrected Calcium Phosphorus Magnesium Total Bilirubin AST ALT Alkaline Phosphatase Total Protein Albumin Globulin Albumin/Globulin Ratio 08/27/25 08/27/25 00:05 04:56 WBC 4.8 RBC 3.61 L Hgb 11.8 L D Hct 34.3 L MCV 95 MCH 32.7 MCHC 34.4 RDW Std Deviation 45.1 Plt Count 184 D Neut % (Auto) 62 Lymph % (Auto) 23 [place] % (Auto) 12 Eos % (Auto) 2 Baso % (Auto) 1 Neut # (Auto) 2.9 Lymph # (Auto) 1.1 [place] # (Auto) 0.6 Eos # (Auto) 0.1 Baso # (Auto) 0.0 Immature Gran # (Auto) 0.04 H Absolute Nucleated RBC 0.00 Immature Gran % 1 H Nucleated RBC % 0 VBG pH VBG pCO2 VBG pO2 VBG O2 Sat (Gisele) VBG Base Excess Sodium 141 Potassium 3.5 D Chloride 103 Carbon Dioxide 28.3 Anion Gap 10 BUN < 5 L Creatinine 0.5 L Estim Creat Clear Calc 65.6 eGFR > 60 BUN/Creatinine Ratio 10 L Glucose 91 D Calculated Osmolality 278 Lactic Acid 1.0 Calcium 8.0 L Corrected Calcium 8.6 Phosphorus 3.0 Magnesium 1.6 Total Bilirubin 0.2 L AST 21 ALT 12 Alkaline Phosphatase 82 D Total Protein 5.4 L Albumin 3.2 L D Globulin 2.2 L Albumin/Globulin Ratio 1.5 ABG Interpretation ABG results: 08/26/25 17:50 VBG pH 7.46 VBG pCO2 37 VBG pO2 51 VBG Base Excess 2 Quality Measures Quality Measures none Advance care planning discussed with:: legal surragate Assessment & Plan Assessment Current Active Medications: Generic Name Dose Route Start Last Admin Trade Name Freq PRN Reason Stop Dose Admin Acetaminophen 650 mg 08/26/25 16:23 Acetaminophen 325 Mg Tablet PO 09/25/25 16:22 Q6H PRN Fever >101.5 or pain 1-3 Albuterol/Ipratropium 3 ml 08/26/25 18:23 Albuterol/Ipratropium (Duoneb) Rt [place] 3 Ml Nebu INH 09/25/25 18:59 Q4HRRT PRN wheezing or SOB Aspirin 81 mg 08/28/25 09:00 Aspirin Ec 81 Mg Tabec PO 09/27/25 08:59 QDAY JERRY Docusate Sodium 100 mg 08/28/25 09:00 Docusate Sod 100 Mg Capsule PO 09/27/25 08:59 BID JERRY Protocol Azithromycin 500 mg/ Sodium 250 mls @ 250 mls/hr 08/27/25 14:00 Chloride IV 09/03/25 13:59 QDAY@1400 [facility] Ceftriaxone Sodium/Dextrose 1 gm in 50 mls @ 100 mls/hr 08/27/25 14:00 Rocephin/D5w 1gm Iv Premix IV 09/03/25 13:59 QDAY@1400 [facility] Levetiracetam 1,000 mg 08/28/25 09:00 Levetiracetam 250 Mg Tablet PO 09/27/25 08:59 QDAY [facility] Levetiracetam 1,500 mg 08/27/25 15:00 Levetiracetam 250 Mg Tablet PO 09/26/25 14:59 Q24H JERRY Levothyroxine Sodium 75 mcg 08/27/25 06:00 08/27/25 06:35 Levothyroxine Sodium 25 Mcg Tablet PO 09/26/25 05:59 Not Given ACBR JERRY Midazolam HCl 4 mg 08/26/25 16:03 Midazolam Inj 1 Mg/Ml Vial 2 Ml IVP Q5MIN PRN SEIZURE Sodium Chloride 3 ml 08/26/25 10:57 08/26/25 11:31 Sodium Chloride Rt [place] 0.9% 3 Ml Nebu INH 09/25/25 10:56 3 ml PRN PRN Administration SOLN Plan Patient is a 70-year-old female with past medical history of Down syndrome, seizure disorder on Keppra, asthma, recurrent pneumonias, hypothyroidism who presented from [place] [facility] to the ED on 08/26/25 for low oxygen level, lethargy, and altered mentation for the past day. Admitted to ICU for shock likely distributive in the setting of pneumonia. Downgraded today to med/surg as patient has been stable off pressors. #Shock (resolved) #2/2 pneumonia, Likely Community acquired #H/o Recurrent Pneumonia - BP dropped to 81/31 with MAP of 52 - S/p 1L IV fluids x2 with minimal improvement, started on Levophed in the ED - Bedside US showed adequate cardiac contractility, no D sign or pericardial effusion observed, low suspicion for obstructive shock. - CXR 08/26 showed left > right bibasilar opacities concerning for infection - CT chest 08/26 showed left based PNA with right apical probable pleural scarring and large calcified granuloma in right upper lobe (seen on previous CT). Also noted mild enlargement cardiac contour with moderate vascular congestion. - Blood cultures negative for 24 hours Plan - On CFX 1g and azithromycin (08/26- - Speech therapy evaluation #Hx of seizures - Takes Keppra 1,000 mg AM daily and 1,500 mg every afternoon at 3PM. - Witnessed generalized seizure in ED, lasted only 10 seconds. Plan - Transition back to oral home dose Keppra - Seizure precautions #Hx HFpEF (EF 55-60%) - Echo 05/16/25 showed normal LV size and function. There is grade I diastolic dysfunction. Estimated EF at 55-60%. The RV is normal in size and systolic function. The estimated RVSP, 42 mmHg. RAP 5. Trace TR. - Not on any GDMT at home Plan - No active treatment #Large calcified granuloma in right upper lobe - Found on CT chest - Also noted on previous CT chest 05/28/25 Plan - No active treatment - No monitoring needed #Hx hypothyroidism Takes levothyroxine 75 mcg daily at home, last dose yesterday Diagnostic work up: - TSH 0.73 and T4 1.33 Treatment - Levothyroxine 75 mcg daily #Chronic osteoporotic compression fractures of T4-T7, L1 Bedbound from [facility] [facility] - Incidental finding on CT chest - CT chest 05/28/25 noted compression fracture of L1 - No signs of pain on exam Plan - Continue home calcium carbonate-vitD3 BID - Consider outpatient physical therapy Hospital Maintenance: Dispo: Medsurg DVT ppx: SCD GI ppx: None Diet: Pureed diet IV lines: Peripheral Code status: Full code Patient plan of care was discussed with the attending physician, Dr. Dinh Farah, PGY2 Attending Provider Attestation/Addendum I have discussed and was present for the essential components of the history, physical examination, diagnosis, and treatment plan with the resident. I agree with the patient's care as documented by the resident and amended herein by me. Maged Tao DO. Although this document has been carefully reviewed, there may still be some phonetic and other typographical errors. These errors are purely grammatical due to imperfections in the software program and should not be construed in any way to compromise the substance of the patient's medical care during this visit.
[2025-08-27] MEDS: AZITHROMYCIN INJ 500 MG in SODIUM CHLORIDE 0.9% 250 ML 250 ML 250 MG IV (15:31)
[2025-08-27] MEDS: cefTRIAXone/D5w 1gm IV premix 1 GM/50 ML BAG IV (15:31)
--- NOTE | 2025-08-27 16:17 | PC.SS ---
Update: Patient downgraded from ICU today, 08-27-25.
[2025-08-27] MEDS: ACETYLCYSTEINE RT SOL 10% 4 ML NEBU 3 ML INH (17:20)
[2025-08-27] MEDS: ALBUTEROL/IPRATROPIUM (Duoneb) RT SOL 3 ML NEBU INH (17:21)
[2025-08-28] VITALS (10 sets, daily range): BP systolic 95–102; BP diastolic 52–83; PULSE 58–89; RESP 14–99; TEMP 36.2–37.2; O2SAT 90–99; BMI 21.7
[2025-08-28] MEDS: LEVOTHYROXINE SODIUM 25 MCG TABLET 75 MCG PO (05:15)
[2025-08-28 05:22] LABS: Basophils # (Auto) 0.1 Thou/mm3 (0.0-0.2); Basophils % (Auto) 2 % (0-2.5); Eosinophils # (Auto) 0.4 Thou/mm3 (0.0-0.5); Eosinophils % (Auto) 8 % (0-10); Hematocrit 38.8 % (36.0-46.0); Hemoglobin 13.2 g/dL (12.0-16.0); Immature Granulocytes Auto 0.04 Thou/mm3 (0.00-0.00); Lymphocytes # (Auto) 1.4 Thou/mm3 (1.0-4.8); Lymphocytes % (Auto) 31 % (10-50); Mean Corpuscular HGB Conc 34.0 g/dl (31.0-37.0); Mean Corpuscular Hemoglobin 32.2 pg (25.0-35.0); Mean Corpuscular Volume 95 fL (80-100); Monocytes # (Auto) 0.5 Thou/mm3 (0.0-0.8); Monocytes % (Auto) 12 % (0-12); Neutrophils # (Auto) 2.1 Thou/mm3 (1.8-7.7); Neutrophils % (Auto) 46 % (37-80); Nucleated Red Blood Cell # 0.00 Thou/mm3 (0.00-0.00); Nucleated Red Blood Cell % 0 /100 WBC (0); Platelet Count 187 Thou/mm3 (140-440); RDW Standard Deviation 44.2 fL (36.4-46.3); Red Blood Count 4.10 Miln/mm3 (4.00-5.20); White Blood Count 4.4 Thou/mm3 (3.6-11.0)
[2025-08-28 05:48] LABS: Alanine Aminotransferase 10 U/L (10-49); Albumin, Serum 3.4 gm/dL (3.4-4.8); Albumin/Globulin Ratio 1.5 (1.2-2.2); Alkaline Phosphatase 92 U/L (46-116); Anion Gap 8 (7-16); Aspartate Amino Transferase 26 U/L (0-34); BUN/Creatinine Ratio 10 Ratio (12-20); Bilirubin,Total 0.2 mg/dL (0.3-1.2); Blood Urea Nitrogen 8 mg/dL (9-23); Calcium 8.6 mg/dL (8.3-10.6); Calcium (Corrected) 9.1 mg/dL (8.5-10.1); Carbon Dioxide 28.9 mMol/L (20.0-31.0); Chloride 102 mMol/L (98-107); Creatinine (Component) 0.8 mg/dL (0.6-1.3); Estimated Creatinine Clearance 41.0 mL/min (>60); Globulin 2.2 gm/dL (2.3-3.5); Glucose 86 mg/dL (74-106); Magnesium 2.1 mg/dL (1.6-2.6); Osmolality,Calculated 274 (275-295); Phosphorous 3.2 mg/dL (2.4-5.1); Potassium 4.3 mMol/L (3.4-5.1); Sodium 139 mMol/L (136-145); Total Protein 5.6 gm/dL (5.7-8.2); eGFR > 60 See Note
[2025-08-28] MEDS: DOCUSATE SOD 100 MG CAPSULE PO ×2 (08:36→20:28)
[2025-08-28] MEDS: ASPIRIN EC 81 MG TABEC PO (08:36)
--- NOTE | 2025-08-28 13:39 | PD.RESPRO ---
Documentation for date of: 08/28/25 Subjective Subjective Interval history: Patient was sleeping comfortably this morning. No respiratory distress noted. No reported fever, chills, chest pain, shortness of breath, abdominal pain, or seizure activity overnight per nursing. Patient doing better than admission. Exam Vital Signs Temp Pulse Resp BP Pulse Ox O2 Del Method O2 Flow Rate 97.6 F 74 20 98/52 L 91 L Nasal Cannula 2 08/28/25 12:00 08/28/25 12:00 08/28/25 12:00 08/28/25 12:00 08/28/25 12:00 08/28/25 12:00 08/28/25 12:00 FiO2 2 08/28/25 12:00 Narrative Exam General: Awake. Noted Down syndrome facies and hair loss. HEENT: Normocephalic, atraumatic, mucous membranes moist. Heart: Regular rate and rhythm, no murmurs. Lungs: Clear to auscultation with no wheezing or crackles. Abdomen: Soft, nondistended, nontender, positive bowel sounds. ?No guarding or rebound tenderness. Neurologic: Alert and oriented x3, no gross neurological deficit, and patient able to move all 4 extremities. Extremities: No edema. Skin: No rash or ecchymoses. Objective Labs 08/29/25 04:44 08/29/25 04:44 Labs: Laboratory Results - last 24 hr 08/28/25 04:45 WBC 4.4 RBC 4.10 Hgb 13.2 Hct 38.8 MCV 95 MCH 32.2 MCHC 34.0 RDW Std Deviation 44.2 Plt Count 187 Neut % (Auto) 46 Lymph % (Auto) 31 [place] % (Auto) 12 Eos % (Auto) 8 Baso % (Auto) 2 Neut # (Auto) 2.1 Lymph # (Auto) 1.4 [place] # (Auto) 0.5 Eos # (Auto) 0.4 Baso # (Auto) 0.1 Immature Gran # (Auto) 0.04 H Absolute Nucleated RBC 0.00 Immature Gran % 1 H Nucleated RBC % 0 Sodium 139 Potassium 4.3 D Chloride 102 Carbon Dioxide 28.9 Anion Gap 8 BUN 8 L Creatinine 0.8 Estim Creat Clear Calc 41.0 L eGFR > 60 BUN/Creatinine Ratio 10 L Glucose 86 Calculated Osmolality 274 L Calcium 8.6 Corrected Calcium 9.1 Phosphorus 3.2 Magnesium 2.1 Total Bilirubin 0.2 L AST 26 ALT 10 Alkaline Phosphatase 92 Total Protein 5.6 L Albumin 3.4 Globulin 2.2 L Albumin/Globulin Ratio 1.5 ABG Interpretation ABG results: 08/26/25 17:50 VBG pH 7.46 VBG pCO2 37 VBG pO2 51 VBG Base Excess 2 Quality Measures Quality Measures VTE prophylaxis Advance care planning discussed with:: patient Assessment & Plan Assessment Current Active Medications: Generic Name Dose Route Start Last Admin Trade Name Freq PRN Reason Stop Dose Admin Acetaminophen 650 mg 08/26/25 16:23 Acetaminophen 325 Mg Tablet PO 09/25/25 16:22 Q6H PRN Fever >101.5 or pain 1-3 Albuterol/Ipratropium 3 ml 08/26/25 18:23 08/27/25 17:21 Albuterol/Ipratropium (Duoneb) Rt Shannno 3 Ml Nebu INH 09/25/25 18:59 3 ml Q4HRRT PRN Administration wheezing or SOB Aspirin 81 mg 08/28/25 09:00 08/28/25 08:36 Aspirin Ec 81 Mg Tabec PO 09/27/25 08:59 81 mg QDAY JERRY Administration Docusate Sodium 100 mg 08/28/25 09:00 08/28/25 08:36 Docusate Sod 100 Mg Capsule PO 09/27/25 08:59 100 mg BID JERRY Administration Protocol Azithromycin 500 mg/ Sodium 250 mls @ 250 mls/hr 08/27/25 14:00 08/27/25 15:31 Chloride IV 09/03/25 13:59 250 mls/hr QDAY@1400 JERRY Administration Ceftriaxone Sodium/Dextrose 1 gm in 50 mls @ 100 mls/hr 08/27/25 14:00 08/27/25 15:31 Rocephin/D5w 1gm Iv Premix IV 09/03/25 13:59 100 mls/hr QDAY@1400 JERRY Administration Levetiracetam 1,000 mg 08/28/25 09:00 08/28/25 08:36 Levetiracetam 250 Mg Tablet PO 09/27/25 08:59 1,000 mg QDAY JERRY Administration Levetiracetam 1,500 mg 08/27/25 15:00 08/27/25 15:30 Levetiracetam 250 Mg Tablet PO 09/26/25 14:59 1,500 mg Q24H JERRY Administration Levothyroxine Sodium 75 mcg 08/27/25 06:00 08/28/25 05:15 Levothyroxine Sodium 25 Mcg Tablet PO 09/26/25 05:59 75 mcg ACBR JERRY Administration Midazolam HCl 4 mg 08/26/25 16:03 Midazolam Inj 1 Mg/Ml Vial 2 Ml IVP Q5MIN PRN SEIZURE Sodium Chloride 3 ml 08/26/25 10:57 08/26/25 11:31 Sodium Chloride Rt [place] 0.9% 3 Ml Nebu INH 09/25/25 10:56 3 ml PRN PRN Administration SOLN Plan Patient is a 70-year-old female with past medical history of Down syndrome, seizure disorder on Keppra, asthma, recurrent pneumonias, hypothyroidism who presented from intermediate to the ED on 08/26/25 for low oxygen level, lethargy, and altered mentation for the past day. Admitted to ICU for shock likely distributive in the setting of pneumonia. Downgraded to med/surg as patient has been stable off pressors. #Shock (resolved) #2/2 pneumonia, Likely Community acquired #H/o Recurrent Pneumonia - BP dropped to 81/31 with MAP of 52 - S/p 1L IV fluids x2 with minimal improvement, started on Levophed in the ED - Bedside US showed adequate cardiac contractility, no D sign or pericardial effusion observed, low suspicion for obstructive shock. - CXR 08/26 showed left > right bibasilar opacities concerning for infection - CT chest 08/26 showed left based PNA with right apical probable pleural scarring and large calcified granuloma in right upper lobe (seen on previous CT). Also noted mild enlargement cardiac contour with moderate vascular congestion. - Blood cultures negative for 24 hours Plan - On CFX 1g and azithromycin (08/26- - Speech therapy evaluation #Hx of seizures - Takes Keppra 1,000 mg AM daily and 1,500 mg every afternoon at 3PM. - Witnessed generalized seizure in ED, lasted only 10 seconds. Plan - Transition back to oral home dose Keppra - Seizure precautions #Hx HFpEF (EF 55-60%) - Echo 05/16/25 showed normal LV size and function. There is grade I diastolic dysfunction. Estimated EF at 55-60%. The RV is normal in size and systolic function. The estimated RVSP, 42 mmHg. RAP 5. Trace TR. - Not on any GDMT at home Plan - No active treatment #Large calcified granuloma in right upper lobe - Found on CT chest - Also noted on previous CT chest 05/28/25 Plan - No active treatment - No monitoring needed #Hx hypothyroidism Takes levothyroxine 75 mcg daily at home, last dose yesterday Diagnostic work up: - TSH 0.73 and T4 1.33 Treatment - Levothyroxine 75 mcg daily #Chronic osteoporotic compression fractures of T4-T7, L1 Bedbound from intermediate - Incidental finding on CT chest - CT chest 05/28/25 noted compression fracture of L1 - No signs of pain on exam Plan - Continue home calcium carbonate-vitD3 BID - Consider outpatient physical therapy Hospital Maintenance: Dispo: Medsurg DVT ppx: SCD GI ppx: None Diet: Pureed diet IV lines: Peripheral Code status: Full code ----- Plan discussed with attending physician Dr. Slick Jauregui MD PGY-1 Internal Medicine Attending Provider Attestation/Addendum I have examined the patient, reviewed labs and imaging findings, discussed the case with the resident(s), and reviewed entered orders. I agree with the plan of care as outlined in this note. Dr. Slick MD
[2025-08-28] MEDS: AZITHROMYCIN INJ 500 MG in SODIUM CHLORIDE 0.9% 250 ML 250 ML 250 MG IV (14:05)
[2025-08-28] MEDS: cefTRIAXone/D5w 1gm IV premix 1 GM/50 ML BAG IV (14:05)
[2025-08-29] VITALS: BP 97/63; PULSE 88; RESP 18; TEMP 36.5; O2SAT 93
[2025-08-29 04:00] VITALS: BP 99/64; PULSE 74; PULSE 79; RESP 18; TEMP 36.3; O2SAT 92
[2025-08-29] MEDS: LEVOTHYROXINE SODIUM 25 MCG TABLET 75 MCG PO (05:04)
[2025-08-29 05:51] LABS: Basophils # (Auto) 0.1 Thou/mm3 (0.0-0.2); Basophils % (Auto) 1 % (0-2.5); Eosinophils # (Auto) 0.4 Thou/mm3 (0.0-0.5); Eosinophils % (Auto) 8 % (0-10); Hematocrit 38.5 % (36.0-46.0); Hemoglobin 12.9 g/dL (12.0-16.0); Immature Granulocytes Auto 0.01 Thou/mm3 (0.00-0.00); Lymphocytes # (Auto) 1.8 Thou/mm3 (1.0-4.8); Lymphocytes % (Auto) 35 % (10-50); Mean Corpuscular HGB Conc 33.5 g/dl (31.0-37.0); Mean Corpuscular Hemoglobin 32.1 pg (25.0-35.0); Mean Corpuscular Volume 96 fL (80-100); Monocytes # (Auto) 0.5 Thou/mm3 (0.0-0.8); Monocytes % (Auto) 10 % (0-12); Neutrophils # (Auto) 2.3 Thou/mm3 (1.8-7.7); Neutrophils % (Auto) 46 % (37-80); Nucleated Red Blood Cell # 0.00 Thou/mm3 (0.00-0.00); Nucleated Red Blood Cell % 0 /100 WBC (0); Platelet Count 199 Thou/mm3 (140-440); RDW Standard Deviation 45.1 fL (36.4-46.3); Red Blood Count 4.02 Miln/mm3 (4.00-5.20); White Blood Count 5.0 Thou/mm3 (3.6-11.0)
[2025-08-29 06:00] VITALS: BMI 21.7
[2025-08-29 06:16] LABS: Alanine Aminotransferase 9 U/L (10-49); Albumin, Serum 3.2 gm/dL (3.4-4.8); Albumin/Globulin Ratio 1.4 (1.2-2.2); Alkaline Phosphatase 88 U/L (46-116); Anion Gap 8 (7-16); Aspartate Amino Transferase 21 U/L (0-34); BUN/Creatinine Ratio 8 Ratio (12-20); Bilirubin,Total 0.2 mg/dL (0.3-1.2); Blood Urea Nitrogen < 5 mg/dL (9-23); Calcium 8.4 mg/dL (8.3-10.6); Calcium (Corrected) 9.0 mg/dL (8.5-10.1); Carbon Dioxide 28.5 mMol/L (20.0-31.0); Chloride 103 mMol/L (98-107); Creatinine (Component) 0.6 mg/dL (0.6-1.3); Estimated Creatinine Clearance 54.7 mL/min (>60); Globulin 2.3 gm/dL (2.3-3.5); Glucose 93 mg/dL (74-106); Magnesium 1.8 mg/dL (1.6-2.6); Osmolality,Calculated 274 (275-295); Phosphorous 3.3 mg/dL (2.4-5.1); Potassium 4.1 mMol/L (3.4-5.1); Sodium 139 mMol/L (136-145); Total Protein 5.5 gm/dL (5.7-8.2); eGFR > 60 See Note
[2025-08-29 07:35] VITALS: BP 97/57; PULSE 76; RESP 18; TEMP 36.3; O2SAT 95
[2025-08-29 08:00] VITALS: PULSE 65
[2025-08-29] MEDS: ASPIRIN EC 81 MG TABEC PO (09:24)
[2025-08-29] MEDS: DOCUSATE SOD 100 MG CAPSULE PO (09:24)
--- NOTE | 2025-08-29 10:01 | PC.SS ---
Pt is from [facility]. Pt is non verbal. Pt was admitted for Septic Shock. SS spoke to patient's caregiver, Manjinder regarding her d/c plan. Patient's demographic and contact information is correct on facesheet. Pt transfers with assistance into wheelchair. Pt requires assistance with ADLs. Per Manjinder, pt has O2 at home. Per Manjinder, pt is not conserved and [facility] makes her medical decisions. Manjinder is requesting pt have Barium Swallow Evaluation done before dc. Manjinder also explained if Barium Swallow evaluation is not completed than he will appeal patient's d/c with [facility]. Manjinder states the [facility] will provide transportation home. D/C plan: Return home Next of Kin: [facility], phone# [phone] PCP: Dr. Rolando Rosas Address: Correct on facesheet
[2025-08-29 11:36] VITALS: BP 96/72; PULSE 65; RESP 22; TEMP 36.4; O2SAT 96
[2025-08-29 12:00] VITALS: PULSE 72
--- NOTE | 2025-08-29 13:29 | PD.RESDS ---
Planned Discharge Date 08/29/25 DS: Providers Provider Date of admission: 08/26/25 16:23 Primary care physician: Rolando Rosas MD Admitting Provider: Loree Solano MD Attending Provider on Admission: Jose Juan Tao DO Consults: 08/27/25 15:53 Referral Speech Therapy Routine Comment: Attending Provider on DC: Usama Kruger MD Discharging Provider: Jodie Jauregui MD DS: Diagnosis Problem List Completed Was Problem List Reviewed/Reconciled?: Yes Hospital Course Hospital Course Hospital course: The patient was admitted from the [facility] on 08/26/2025 for low oxygen levels, lethargy, and altered mentation. Upon arrival, the patient was in shock, likely distributive in nature, due to pneumonia. She received 2L of IV fluids and was started on Levophed in the ED. Imaging revealed left > right bibasilar opacities on chest X-ray and left basal pneumonia with a calcified granuloma in the right upper lobe on CT. Blood and urine cultures were negative after 24 hours. The patient experienced a brief generalized seizure in the ED, lasting approximately 10 seconds, and was restarted on her home Keppra regimen (1000 mg AM, 1500 mg PM). She was downgraded to the medical-surgical unit on 08/27/2025 after stabilizing off pressors, with no further issues or oxygen requirements. Her pneumonia is improving, and she is now afebrile. The patient remained stable without acute events during her hospitalization. She was transitioned to home medications, and a speech therapy consult was placed to evaluate for aspiration risk which revealed no aspiration risk. Diagnosis during admission: #Shock (resolved) #2/2 pneumonia, Likely Community acquired #H/o Recurrent Pneumonia #Hx of seizures #Hx HFpEF (EF 55-60%) #Large calcified granuloma in right upper lobe #Hx hypothyroidism #Chronic osteoporotic compression fractures of T4-T7, L1 Discharge Instruction: -Follow-up with PCP within 1 week of discharge. If you do not have appointment, please follow-up with the [facility] with Dr. Farah. Call [phone] to make an appointment. -Continue Augmentin twice daily for 2 more days. -Continue home meds as prescribed. -Diet: Pureed diet as tolerated; ensure adequate hydration. -Head of bed elevation, do not lay down for an hour after eating. -Follow up with neurology Dr Mendoza within 1-2 weeks. -Return to ED if symptoms persist or return ----- Plan discussed with attending physician Dr. Slick Jauregui MD PGY-1 Internal Medicine Time Spent with Patient Time attestation: Total time spent providing and/or coordinating discharge services: Time spent: Greater than 30 minutes Exam Vital Signs Temp Pulse Resp BP Pulse Ox O2 Del Method O2 Flow Rate 97.6 F 65 22 H 96/72 96 Nasal Cannula 2 08/29/25 11:36 08/29/25 11:36 08/29/25 11:36 08/29/25 11:36 08/29/25 11:36 08/29/25 11:36 08/29/25 11:36 FiO2 2 08/28/25 16:00 Narrative Exam General: Awake. Noted Down syndrome facies and hair loss. HEENT: Normocephalic, atraumatic, mucous membranes moist. Heart: Regular rate and rhythm, no murmurs. Lungs: Clear to auscultation with no wheezing or crackles. Abdomen: Soft, nondistended, nontender, positive bowel sounds. ?No guarding or rebound tenderness. Neurologic: Alert and oriented x3, no gross neurological deficit, and patient able to move all 4 extremities. Extremities: No edema. Skin: No rash or ecchymoses. Discharge Plan Plan Patient Disposition: Xfer [facility]illed [facility] (SNF) Patient condition on transfer: Stable Care Plan Goals: -Follow-up with PCP within 1 week of discharge. If you do not have appointment, please follow-up with the [facility] with Dr. Farah. Call [phone] to make an appointment. -Continue Augmentin twice daily for 2 more days. -Continue home meds as prescribed. -Diet: Pureed diet as tolerated; ensure adequate hydration. -Head of bed elevation, do not lay down for an hour after eating. -Follow up with neurology Dr Mendoza within 1-2 weeks. -Return to ED if symptoms persist or return Prescriptions/Referrals Prescriptions/Med Rec: New amoxicillin-pot clavulanate 875-125 mg tablet 1 tab PO BID Qty: 4 0RF Continued methenamine hippurate [Hiprex] 1 gram tablet 1 g PO QDAY quetiapine 100 mg tablet 100 mg PO HS levothyroxine 75 mcg tablet 75 mcg PO DAILY docusate sodium 100 mg capsule 100 mg PO BID aspirin 81 mg tablet,chewable 81 mg PO DAILY montelukast 10 mg tablet 10 mg PO DAILY loratadine 10 mg tablet 10 mg PO DAILY calcium carbonate-vitamin D3 600 mg-10 mcg (400 unit) tablet 1 tab PO BID (DME) Bipap Misc See Rx Instructions .Route Qty: 1 0RF Rx Instructions: As directed cranberry extract [Cranberry Concentrate] 500 mg Capsule 500 mg PO QDAY Rx Instructions: administer with meals polyethylene glycol 3350 17 gram/dose powder 17 g PO QDAY Xcopri 50 mg tablet 50 mg PO QDAY Rx Instructions: administer weeks 5 and 6 of therapy Changed levetiracetam 500 mg tablet 1,000 mg PO QDAY Qty: 10 0RF Patient Comments: take 2 tabs by mouth in the morning and 3 tabs by mouth at bedtime levetiracetam 750 mg tablet 1,500 mg PO QPM Qty: 14 0RF Patient Comments: 1500 MG (2 X 750 MG) ORALLY TWICE A DAY FOR 1 MONTH TAKE TWO TABLETS BY MOUTH TWICE A DAY Referrals: Rolando Rosas MD [Primary Care Provider, Family Practice] Patient/Caregiver Discharge Instructions Education Materials: What Is Pneumonia?, Preventing Pneumonia, Treating Pneumonia Print Language: Maltese Stand Alone Forms: Laurie Award Info., Patient Portal Info Letter Discharge Order Discharge Orders: Discharge (Routine); Ordered 08/29/25 Ordered By: Raul Farah Quality Discharge Quality Measures VTE prophylaxis MD Attestestation MD Attestation I have examined the patient, reviewed labs and imaging findings, discussed the case with the resident(s), and reviewed entered orders. I agree with the plan of care as outlined in this note. Time Spent: [address] Slick MD
== END 2025-08-29 15:18 | disposition skilled nursing facility (03) | DRG 193 ==
LOC: SERX 14:38 → SERHOLD 16:40 → S2SX 18:15 → S3SX 08-27 15:13
PROVIDERS: Admitting Provider Internal Medicine; Emergency Provider Emergency Medicine; PCP Family Medicine; Visit Provider Student in an Organized Health Care Education/Training Program
DX: J18.9 Pneumonia, unspecified organism (principal); R57.8 Other shock; I50.32 Chronic diastolic (congestive) heart failure; M80.08XA Age-related osteoporosis with current pathological fracture, vertebra(e), initial encounter for fracture; Q90.9 Down syndrome, unspecified; G40.909 Epilepsy, unspecified, not intractable, without status epilepticus; J45.909 Unspecified asthma, uncomplicated; Z87.01 Personal history of pneumonia (recurrent); E03.9 Hypothyroidism, unspecified; Z79.890 Hormone replacement therapy
CPT/HCPCS: 36415; 71045; 71260; 80053; 81001; 82803; 83605; 83735; 83880; 84100; 84145; 84439; 84443; 85025; 85610; 85730; 87040; 87081; 87086; 87205; 87502; 87635; 92526; 92610; 93005; 94640; 94644; 94667; 96361; 96365; 96366; 96374; 96375; 96376; 99285; A4649; A9270; J0456; J0696; J1953; J3475; J3480; J3490; J7050; J7120; Q9967

== ENCOUNTER 2025-09-04 16:29 | Emergency (ER) | payer MEDICARE, MEDICAID, SELFPAY ==
--- NOTE | 2025-09-04 16:43 | XR_ITS ---
EXAMINATION: AP chest single view TECHNIQUE: AP portable semiupright chest single view Date and time: September 04, 2025, 1724 hours, comparison August 26, 2025 INDICATIONS: Chest pain weakness hypoxia low O2 saturation today. FINDINGS: Normal heart size Mild vascular congestion. Pneumonia left base obscuring detail most of the left hemidiaphragm Calcified nodule in the right midlung, please see the CT chest report May 28, 2025 Prominent osteopenia IMPRESSION: Significant left base pneumonia
[2025-09-04 16:45] VITALS: PULSE 60; O2SAT 97; BMI 21.6
--- NOTE | 2025-09-04 16:46 | PD.EDADULT ---
ED General RME/HPI General Chief complaint: Shortness of Breath/Dyspnea Stated complaint: SHORTNESS OF BREATH Time Seen by Provider: 09/04/25 16:41 Arrival date/time: 09/04/25 16:29 CC: Low sats , HPI patient presents to the ER via EMS report normal saturations and stable blood pressure after family reported low sats. The patient was diagnosed with pneumonia approxi-1 week ago. The patient is developmentally delayed nonverbal. She is not warm to touch. Vital signs currently are stable. Related Data Home Medications ?Medication ?Instructions ?Recorded ?Confirmed aspirin 81 mg chewable tablet 81 mg PO DAILY Elevated Lipids 09/23/23 08/26/25 calcium 600 mg (as 1 tab PO BID 09/23/23 08/26/25 carbonate)-vitamin D3 10 mcg (400 unit) tablet docusate sodium 100 mg capsule 100 mg PO BID Constipation 09/23/23 08/26/25 levothyroxine 75 mcg tablet 75 mcg PO DAILY 09/23/23 08/26/25 loratadine 10 mg tablet 10 mg PO DAILY 09/23/23 08/26/25 montelukast 10 mg tablet 10 mg PO DAILY 09/23/23 08/26/25 quetiapine 100 mg tablet 100 mg PO HS 09/23/23 08/28/25 cranberry extract 500 mg capsule 500 mg PO QDAY 12/04/23 08/26/25 (Cranberry Concentrate) methenamine hippurate 1 gram 1 g PO QDAY 08/10/24 08/26/25 tablet (Hiprex) polyethylene glycol 3350 17 17 g PO QDAY 03/13/25 08/26/25 gram/dose oral powder cenobamate 50 mg tablet (Xcopri) 50 mg PO QDAY 08/26/25 08/26/25 Previous Rx's ?Medication ?Instructions ?Recorded DME Order Set (Bipap) #1 ea 05/30/25 amoxicillin 875 mg-potassium 1 tab PO BID #4 tabs 08/29/25 clavulanate 125 mg tablet levetiracetam 500 mg tablet 1,000 mg (2 x 500 mg) PO QDAY #10 08/29/25 tabs levetiracetam 750 mg tablet 1,500 mg (2 x 750 mg) PO QPM #14 08/29/25 tabs doxycycline hyclate 100 mg capsule 100 mg PO BID #14 caps 09/04/25 Allergies Allergy/AdvReac Type Severity Reaction Status Date / Time No Known Allergies Allergy Unverified 03/12/25 16:06 Review of Systems Review of Systems ROS Unobtainable: unobtainable due to mental status Past Medical History Past Medical History NEUROLOGIC: Positive Neurological Disorders and Seizures CARDIAC: Positive Cardiac Disorders, Hypercholesterolemia and Hypotension; Negative Congestive Heart Failure RESPIRATORY: Positive Asthma and Pneumonia; Negative Chronic Obstructive Pulmonary Disease (COPD) GASTROINTESTINAL: Positive Gastrointestinal Bleed; Negative Gastrointestinal Disorders GENITOURINARY: Negative Genitourinary Disorders or Renal Disease REPRODUCTIVE: Negative Pelvic Inflammatory Disease MUSCULOSKELETAL: Negative Musculoskeletal Disorders ENT: Positive Cataracts ENDOCRINE: Positive Hyperthyroidism and Hypothyroidism; Negative Endocrine Disorders, Diabetes Mellitus Type 1 or Diabetes Mellitus Type 2 HEMATOLOGIC: Negative Blood Disorders or Sickle Cell Disease OTHER HISTORY: Positive Hospitalization, Down Syndrome and Developmental Delay; Negative Autoimmune Disease, Shingles, Falls, Anesthesia Reactions, Organ Transplant, MRSA, VRSA, Vancomycin-Resistant Enterococci, Clostridium Difficile or Cancer Family History FAMILY HISTORY: Negative Family Cardiac Disorders Surgical History SURGICAL: Negative Cardiac Surgery, Endocrine Surgery, Ear Surgery, Abdominal Surgery, Nephrectomy, Joint Replacement, Mastectomy, Vasectomy or Organ Transplant Social History SMOKING STATUS: Unknown if ever smoked ED Exam Narrative Physical exam: [General: Appears not in any acute distress Head normocephalic HEENT: Within acceptable limits Neck is supple nontender Chest equal chest rise nontender to palpation Respiratory: Clear to auscultation no wheezes crackles or rubs CV: Rate rhythm is regular no murmurs rubs or clicks Abdomen is soft nontender no masses positive bowel sounds all 4 quadrants Back: No CVA tenderness no spinous process tenderness from cervical spine thoracic and lumbar spine Skin: Extremity skin is cold and mottled. Skin is intact no petechiae rash induration ulceration or crepitus Extremities: Moving all extremiti against resistance cap refill less than 2 seconds neurosensory intact Neuro: Awake baseline nonverbal not following commands. Course Course Course Narrative: Oxygen saturation maintained between 93 and 95% on room air. This time comfortable discharging the patient home to her care providers. Patient was initially on 3 days of doxycycline at this time we will put her on 7 days of Levaquin. Quality Measures none Orders Category Date Time Status In and Out Catheter X1 Care 09/04/25 16:43 Completed XR chest 1V Stat Exams 09/04/25 16:43 Completed CBC Stat Lab 09/04/25 17:09 Completed CMP [Comprehensive Metabolic Panel] Stat Lab 09/04/25 17:09 Completed Urinalysis Stat Lab 09/04/25 17:20 Completed cefTRIAXone [Rocephin] 1,000 mg Med 09/04/25 17:56 Discontinued Lidocaine 1% Pf Vial 5ml [Xylocaine 1% 5 ml] 2.1 ml IM X1 Vital Signs Vital signs: Vital Signs Temperature 97.8 F 09/04/25 16:49 Pulse Rate 56 L 09/04/25 16:49 Respiratory Rate 17 09/04/25 16:49 Blood Pressure 105/73 09/04/25 16:49 Pulse Oximetry (%) 98 09/04/25 16:49 Oxygen Delivery Method Room Air 09/04/25 16:49 Discharge Plan Plan Patient Disposition: HOME (Self Care) Patient condition on transfer: Stable Prescriptions/Referrals Prescriptions/Med Rec: New doxycycline hyclate 100 mg capsule 100 mg PO BID Qty: 14 0RF No Action methenamine hippurate [Hiprex] 1 gram tablet 1 g PO QDAY quetiapine 100 mg tablet 100 mg PO HS levothyroxine 75 mcg tablet 75 mcg PO DAILY docusate sodium 100 mg capsule 100 mg PO BID aspirin 81 mg tablet,chewable 81 mg PO DAILY montelukast 10 mg tablet 10 mg PO DAILY loratadine 10 mg tablet 10 mg PO DAILY calcium carbonate-vitamin D3 600 mg-10 mcg (400 unit) tablet 1 tab PO BID (DME) Bipap Misc See Rx Instructions .Route Qty: 1 0RF Rx Instructions: As directed cranberry extract [Cranberry Concentrate] 500 mg Capsule 500 mg PO QDAY Rx Instructions: administer with meals polyethylene glycol 3350 17 gram/dose powder 17 g PO QDAY Xcopri 50 mg tablet 50 mg PO QDAY Rx Instructions: administer weeks 5 and 6 of therapy amoxicillin-pot clavulanate 875-125 mg tablet 1 tab PO BID Qty: 4 0RF levetiracetam 500 mg tablet 1,000 mg PO QDAY Qty: 10 0RF Patient Comments: take 2 tabs by mouth in the morning and 3 tabs by mouth at bedtime levetiracetam 750 mg tablet 1,500 mg PO QPM Qty: 14 0RF Patient Comments: 1500 MG (2 X 750 MG) ORALLY TWICE A DAY FOR 1 MONTH TAKE TWO TABLETS BY MOUTH TWICE A DAY Referrals: Leo Rosas MD [Primary Care Provider, Family Practice] - In 1 week Problem List Clinical Impression: Pneumonia Patient/Caregiver Discharge Instructions Other Activity Instructions:: If symptoms get worse in spite of the medications return the emergency room immediately for further evaluation. Education Materials: ED Pneumonia (Adult) Print Language: Ukrainian Stand Alone Forms: Laurie Award Info., Patient Portal Info Letter PA/IT LEAD Supervising Physician PA/IT LEAD Supervising Physician: Ghulam Ramos ENP MDM Clinical Information Provided by: EMS Medical Records reviewed [facility] and EMS Meds/Rx considered, not ordered None Labs/Rad/Tests considered, not ordered None Chronic Illness/Social Conditions Explain: Developmental delay seizure disorder Labs Labs: interpreted by me Imaging Imaging interpretation: interpreted by me Imaging Interpretation(s): CBC shows no acute leukocytosis anemia thrombocytopenia CMP shows sodium 135 BUN of 5 no other significant electrolyte imbalances or renal impairment. No transaminitis or T. bili elevation Urine is negative for UTI Chest x-ray show left base pneumonia. Medication Administration(s) Medication Administration History Discontinued Medications Ceftriaxone Sodium 1,000 mg/ (Lidocaine HCl 2.1 ml) 0 mg IM X1 ONE Stop: 09/04/25 17:57 Last Admin: 09/04/25 18:32 Dose: 1,000 mg Documented By: MORA
[2025-09-04 16:49] VITALS: BP 105/73; PULSE 56; RESP 17; TEMP 36.6; O2SAT 98
[2025-09-04 17:29] LABS: Basophils # (Auto) 0.1 Thou/mm3 (0.0-0.2); Basophils % (Auto) 1 % (0-2.5); Eosinophils # (Auto) 0.0 Thou/mm3 (0.0-0.5); Eosinophils % (Auto) 1 % (0-10); Hematocrit 40.5 % (36.0-46.0); Hemoglobin 13.8 g/dL (12.0-16.0); Immature Granulocytes Auto 0.03 Thou/mm3 (0.00-0.00); Lymphocytes # (Auto) 1.6 Thou/mm3 (1.0-4.8); Lymphocytes % (Auto) 31 % (10-50); Mean Corpuscular HGB Conc 34.1 g/dl (31.0-37.0); Mean Corpuscular Hemoglobin 31.8 pg (25.0-35.0); Mean Corpuscular Volume 93 fL (80-100); Monocytes # (Auto) 0.5 Thou/mm3 (0.0-0.8); Monocytes % (Auto) 9 % (0-12); Neutrophils # (Auto) 2.9 Thou/mm3 (1.8-7.7); Neutrophils % (Auto) 58 % (37-80); Nucleated Red Blood Cell # 0.00 Thou/mm3 (0.00-0.00); Nucleated Red Blood Cell % 0 /100 WBC (0); Platelet Count 359 Thou/mm3 (140-440); RDW Standard Deviation 43.7 fL (36.4-46.3); Red Blood Count 4.34 Miln/mm3 (4.00-5.20); White Blood Count 5.1 Thou/mm3 (3.6-11.0)
[2025-09-04 17:44] LABS: Collection Type, Urine Catheter; RBC,Urine 0 /hpf (0-3); Squamous Epithelial Cell,Urine 0 /hpf (0-5)
[2025-09-04 17:47] LABS: Alanine Aminotransferase 10 U/L (10-49); Albumin, Serum 4.0 gm/dL (3.4-4.8); Albumin/Globulin Ratio 1.5 (1.2-2.2); Alkaline Phosphatase 105 U/L (46-116); Anion Gap 9 (7-16); Aspartate Amino Transferase 23 U/L (0-34); BUN/Creatinine Ratio 6 Ratio (12-20); Bilirubin,Total 0.2 mg/dL (0.3-1.2); Blood Urea Nitrogen 5 mg/dL (9-23); Calcium 9.3 mg/dL (8.3-10.6); Calcium (Corrected) 9.3 mg/dL (8.5-10.1); Carbon Dioxide 28.5 mMol/L (20.0-31.0); Chloride 98 mMol/L (98-107); Creatinine (Component) 0.9 mg/dL (0.6-1.3); Estimated Creatinine Clearance 36.5 mL/min (>60); Globulin 2.6 gm/dL (2.3-3.5); Glucose 98 mg/dL (74-106); Osmolality,Calculated 267 (275-295); Potassium 4.7 mMol/L (3.4-5.1); Sodium 135 mMol/L (136-145); Total Protein 6.6 gm/dL (5.7-8.2); eGFR > 60 See Note
[2025-09-04 18:22] LABS: Bilirubin,Urine Negative (Negative); Blood,Urine Negative (Negative); Clarity,Urine Clear (Clear/Hazy); Color,Urine Colorless (Lt Yel-Yel); Glucose, Urine Negative (Negative); Ketones,Urine Negative (Negative); Leukocyte Esterase,Urine Negative (Negative); Nitrite,Urine Negative (Negative); PH,Urine 7.0 (5.0-7.0); Protein,Urine Negative (Neg - Trace); Specific Gravity,Urine 1.006 (1.001-1.035); Urobilinogen,Urine Negative mg/dL (0.0-1.0); WBC,Urine < 1 /hpf (0-5)
[2025-09-04 18:46] VITALS: BP 124/71; PULSE 60; RESP 17; TEMP 36.3; O2SAT 98
== END 2025-09-04 19:39 | disposition home or self-care (01) ==
PROVIDERS: Registered Nurse General Practice; Emergency Provider Emergency Medicine; PCP Family Medicine
DX: J18.9 Pneumonia, unspecified organism (principal)
CPT/HCPCS: 36415; 51701; 71045; 80053; 81001; 85025; 96372; 99283; J0696; J3490

== ENCOUNTER 2025-09-21 07:06 | Emergency (ER) | payer MEDICARE, MEDICAID, SELFPAY ==
[2025-09-21 07:20] VITALS: PULSE 98; RESP 18; O2SAT 95
[2025-09-21 07:28] VITALS: BMI 24.0
[2025-09-21 07:45] VITALS: BP 114/78; PULSE 88; RESP 17; TEMP 37.2; O2SAT 99
--- NOTE | 2025-09-21 07:45 | XR_ITS ---
EXAMINATION: AP chest single view TECHNIQUE: AP portable semiupright chest single view Date and time: September 21, 2025, 0852 hours, comparison September 04, 2025 INDICATIONS: Shortness of breath today FINDINGS: The film is rotated RPO Normal heart size Accentuation basilar bronchovascular markings. No lobar pneumonia or pulmonary edema Prominent osteopenia IMPRESSION: Basilar bronchitis pattern
--- NOTE | 2025-09-21 07:45 | EKG_ITS ---
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
--- NOTE | 2025-09-21 07:49 | PD.EDSOB ---
ED SOB =RME/HPI General Chief Complaint: Shortness of Breath/Dyspnea Stated Complaint: RULE OUT Pneumonia Time Seen by Provider: 09/21/25 07:21 Arrival date/time: 09/21/25 07:06 RME / HPI RME / HPI Narrative: 70-year-old female with history of Down syndrome and baseline GCS of 10 is sent in from home, brought in by EMS for evaluation of hypoxic episode that occurred overnight. She is on 2 L nasal cannula baseline and was noted to drop her sats down to 87% last night. EMS had put her on 4 L and sats improved to 95%. Notes to have a cough for the past day. Was at her normal baseline yesterday. No other acute symptoms were noted by family. Past medical history significant for hypothyroidism, asthma, previous pneumonias, Down syndrome. Related Data Home Medications ?Medication ?Instructions ?Recorded ?Confirmed aspirin 81 mg chewable tablet 81 mg PO DAILY Elevated Lipids 09/23/23 08/26/25 calcium 600 mg (as 1 tab PO BID 09/23/23 08/26/25 carbonate)-vitamin D3 10 mcg (400 unit) tablet docusate sodium 100 mg capsule 100 mg PO BID Constipation 09/23/23 08/26/25 levothyroxine 75 mcg tablet 75 mcg PO DAILY 09/23/23 08/26/25 loratadine 10 mg tablet 10 mg PO DAILY 09/23/23 08/26/25 montelukast 10 mg tablet 10 mg PO DAILY 09/23/23 08/26/25 quetiapine 100 mg tablet 100 mg PO HS 09/23/23 08/28/25 cranberry extract 500 mg capsule 500 mg PO QDAY 12/04/23 08/26/25 (Cranberry Concentrate) methenamine hippurate 1 gram 1 g PO QDAY 08/10/24 08/26/25 tablet (Hiprex) polyethylene glycol 3350 17 17 g PO QDAY 03/13/25 08/26/25 gram/dose oral powder cenobamate 50 mg tablet (Xcopri) 50 mg PO QDAY 08/26/25 08/26/25 Previous Rx's ?Medication ?Instructions ?Recorded DME Order Set (Bipap) #1 ea 05/30/25 amoxicillin 875 mg-potassium 1 tab PO BID #4 tabs 08/29/25 clavulanate 125 mg tablet levetiracetam 500 mg tablet 1,000 mg (2 x 500 mg) PO QDAY #10 08/29/25 tabs levetiracetam 750 mg tablet 1,500 mg (2 x 750 mg) PO QPM #14 08/29/25 tabs doxycycline hyclate 100 mg capsule 100 mg PO BID #14 caps 09/04/25 guaifenesin 200 mg/5 mL oral liquid 400 mg (10 mL) PO Q6H PRN 09/21/25 congestion #118 mL oseltamivir 6 mg/mL oral 75 mg (12.5 mL) PO BID 5 days #125 09/21/25 suspension (Tamiflu) mL Allergies Allergy/AdvReac Type Severity Reaction Status Date / Time No Known Allergies Allergy Unverified 03/12/25 16:06 Review of Systems Review of Systems ROS Unobtainable: unobtainable due to medical condition Past Medical History Past Medical History NEUROLOGIC: Positive Neurological Disorders and Seizures CARDIAC: Positive Cardiac Disorders, Hypercholesterolemia and Hypotension RESPIRATORY: Positive Asthma and Pneumonia GASTROINTESTINAL: Positive Gastrointestinal Bleed ENT: Positive Cataracts ENDOCRINE: Positive Hyperthyroidism and Hypothyroidism OTHER HISTORY: Positive Hospitalization, Down Syndrome and Developmental Delay Family History FAMILY HISTORY: Negative Family Cardiac Disorders Surgical History SURGICAL: Negative Cardiac Surgery, Endocrine Surgery, Ear Surgery, Abdominal Surgery, Nephrectomy, Joint Replacement, Mastectomy or Vasectomy Social History SMOKING STATUS: Never smoker ED Exam Narrative Physical exam: Constitutional: Awake, baseline altered mentation with Down syndrome, appears chronically ill. HEENT: Normocephalic, atraumatic CV: Regular rate and normal rhythm. Lungs: Scattered rhonchi noted, occasional productive cough, does not appear in respiratory distress at present, nasal cannula in place. Abd: Soft, nondistended, does not appear tender to palpation. Neuro: Awake, baseline altered mental state, GCS [id number] Skin: Warm, dry, intact Other Other exam information: 1235h: The patient is vitally stable, with an oxygen saturation of 98% on oxygen. There is no respiratory distress, and blood pressure is stable. The patient is not tachycardic or tachypneic. The family is comfortable with discharge, and precautions regarding influenza have been discussed. Strict return precautions were also advised. Course Quality Measures none Orders Category Date Time Status Bedside COVID-19 Antigen Test NOW Care 09/21/25 07:49 Active Bedside Influenza A&B Antigen Test NOW Care 09/21/25 07:49 Completed Bedside RSV Test NOW Care 09/21/25 07:49 Completed Store Worker NOW Care 09/21/25 07:45 Active Continuous Pulse Oximetry NOW Care 09/21/25 07:45 Completed EKG (ED ONLY) *Do not use* NOW Care 09/21/25 07:45 Completed Insert IV STAT Care 09/21/25 07:45 Active EKG (ED Only) Stat Exams 09/21/25 07:45 Draft XR chest 1V portable Stat Exams 09/21/25 07:45 Completed B-Type Natriuretic Peptide Stat Lab 09/21/25 09:05 Completed Blood Culture (Lab) Stat Lab 09/21/25 09:05 Received CBC Stat Lab 09/21/25 09:05 Completed Comprehensive Metabolic Panel Stat Lab 09/21/25 09:05 Completed Magnesium Stat Lab 09/21/25 09:05 Completed Procalcitonin Stat Lab 09/21/25 09:05 Completed Urinalysis Stat Lab 09/21/25 10:43 Completed Oxygen Delivery NOW RT 09/21/25 07:45 Active Vital Signs Vital signs: Vital Signs Temperature 98.9 F 09/21/25 07:45 Pulse Rate 88 09/21/25 07:45 Respiratory Rate 17 09/21/25 07:45 Blood Pressure 114/78 09/21/25 07:45 Pulse Oximetry (%) 99 09/21/25 07:45 Oxygen Delivery Method Room Air 09/21/25 07:45 Pulse ox is 99% on room air which is adequate. Shortness of Breath / Dyspnea MDM Narrative MDM Narrative:: 70-year-old female with history of Down syndrome, hypothyroidism, asthma, pneumonias in the past coming in for evaluation of cough x 1 day and decreased sats at home on her 2 L nasal cannula. On presentation to the emergency department, patient does not appear in acute distress, sats are stable in the mid 90s on 4 L. Workup ordered including labs and imaging. Patient data External records reviewed:: [facility] previous records Clinical information provided by:: EMS Social determinants that could affect healthcare access:: none Patient has the following chronic illnesses:: Down's syndrome, asthma How is presenting disease/condition affected by chronic disease/condition?: exacerbated by Evaluation data The following diagnostics were reviewed and interpreted by me:: lab results, radiology exam(s) and EKG tracing(s) (EKG @ 08:00 AM, normal sinus rhythm, rate 76, no STEMI. ) Lab and/or radiology exams considered but not ordered:: none Interpretation Summary: Ordering Physician: Deepika Solano MD Date of Service: 09/21/25 Procedure(s): XR chest 1V portable Accession Number(s): [id number] cc: Jose Manuel Croft MD; Deepika Solano MD; Rolando Rosas MD~ EXAMINATION: AP chest single view TECHNIQUE: AP portable semiupright chest single view Date and time: September 21, 2025, 0852 hours, comparison September 04, 2025 INDICATIONS: Shortness of breath today FINDINGS: The film is rotated RPO Normal heart size Accentuation basilar bronchovascular markings. No lobar pneumonia or pulmonary edema Prominent osteopenia IMPRESSION: Basilar bronchitis pattern Dictated By: Jose Manuel Croft MD Signed By: <Electronically signed by Jose Manuel Croft MD in OV> 09/21/25 0925 Medications / Prescriptions Medications or Prescriptions considered but not ordered:: none Medication administrations:: None Consultations Consultation(s) initiated? (list below): No Diagnosis Shortness of Breath Differential Diagnosis: acute exacerbation of chronic obstructive airways disease, congestive heart failure, community acquired pneumonia and other (viral illness ) Most likely diagnosis given after review of the tests above:: Influenza B Admission Indicated Admission indicated?: not indicated Admission Request Was there a request for admission?: No Disposition Plan Disposition Plan: Discharge Discharge Attestation Discharge Attestation: The patient and all family members were given an opportunity to ask questions and understood the discharge instructions. Discharge instructions specifically effects, indications for sooner follow up or return to the emergency department, and the expected course of current diagnosis. Patient condition: Stable Discharge Plan Plan Patient Disposition: HOME (Self Care) Patient condition on transfer: Stable Prescriptions/Referrals Prescriptions/Med Rec: New guaifenesin 200 mg/5 mL liquid 400 mg PO Q6H PRN (Reason: congestion) Qty: 118 0RF No Action methenamine hippurate [Hiprex] 1 gram tablet 1 g PO QDAY quetiapine 100 mg tablet 100 mg PO HS levothyroxine 75 mcg tablet 75 mcg PO DAILY docusate sodium 100 mg capsule 100 mg PO BID aspirin 81 mg tablet,chewable 81 mg PO DAILY montelukast 10 mg tablet 10 mg PO DAILY loratadine 10 mg tablet 10 mg PO DAILY calcium carbonate-vitamin D3 600 mg-10 mcg (400 unit) tablet 1 tab PO BID (DME) Bipap Misc See Rx Instructions .Route Qty: 1 0RF Rx Instructions: As directed cranberry extract [Cranberry Concentrate] 500 mg Capsule 500 mg PO QDAY Rx Instructions: administer with meals polyethylene glycol 3350 17 gram/dose powder 17 g PO QDAY Xcopri 50 mg tablet 50 mg PO QDAY Rx Instructions: administer weeks 5 and 6 of therapy amoxicillin-pot clavulanate 875-125 mg tablet 1 tab PO BID Qty: 4 0RF levetiracetam 500 mg tablet 1,000 mg PO QDAY Qty: 10 0RF Patient Comments: take 2 tabs by mouth in the morning and 3 tabs by mouth at bedtime levetiracetam 750 mg tablet 1,500 mg PO QPM Qty: 14 0RF Patient Comments: 1500 MG (2 X 750 MG) ORALLY TWICE A DAY FOR 1 MONTH TAKE TWO TABLETS BY MOUTH TWICE A DAY doxycycline hyclate 100 mg capsule 100 mg PO BID Qty: 14 0RF Referrals: Rolando Rosas MD [Primary Care Provider, Family Practice] - In 1 week Problem List Clinical Impression: Influenza B Patient/Caregiver Discharge Instructions Print Language: Greek Stand Alone Forms: Laurie Award Info., Patient Portal Info Letter
[2025-09-21 09:22] LABS: Basophils # (Auto) 0.0 Thou/mm3 (0.0-0.2); Basophils % (Auto) 1 % (0-2.5); Eosinophils # (Auto) 0.0 Thou/mm3 (0.0-0.5); Eosinophils % (Auto) 0 % (0-10); Hematocrit 44.7 % (36.0-46.0); Hemoglobin 15.5 g/dL (12.0-16.0); Immature Granulocytes Auto 0.05 Thou/mm3 (0.00-0.00); Lymphocytes # (Auto) 1.3 Thou/mm3 (1.0-4.8); Lymphocytes % (Auto) 15 % (10-50); Mean Corpuscular HGB Conc 34.7 g/dl (31.0-37.0); Mean Corpuscular Hemoglobin 32.4 pg (25.0-35.0); Mean Corpuscular Volume 94 fL (80-100); Monocytes # (Auto) 0.5 Thou/mm3 (0.0-0.8); Monocytes % (Auto) 6 % (0-12); Neutrophils # (Auto) 6.6 Thou/mm3 (1.8-7.7); Neutrophils % (Auto) 78 % (37-80); Nucleated Red Blood Cell # 0.00 Thou/mm3 (0.00-0.00); Nucleated Red Blood Cell % 0 /100 WBC (0); Platelet Count 266 Thou/mm3 (140-440); RDW Standard Deviation 45.3 fL (36.4-46.3); Red Blood Count 4.78 Miln/mm3 (4.00-5.20); White Blood Count 8.5 Thou/mm3 (3.6-11.0)
[2025-09-21 09:40] LABS: Alanine Aminotransferase 12 U/L (10-49); Albumin, Serum 3.6 gm/dL (3.4-4.8); Albumin/Globulin Ratio 1.2 (1.2-2.2); Alkaline Phosphatase 153 U/L (46-116); Anion Gap 7 (7-16); Aspartate Amino Transferase 25 U/L (0-34); BUN/Creatinine Ratio 7 Ratio (12-20); Bilirubin,Total 0.3 mg/dL (0.3-1.2); Blood Urea Nitrogen 6 mg/dL (9-23); Calcium 8.6 mg/dL (8.3-10.6); Calcium (Corrected) 8.9 mg/dL (8.5-10.1); Carbon Dioxide 29.6 mMol/L (20.0-31.0); Chloride 100 mMol/L (98-107); Creatinine (Component) 0.9 mg/dL (0.6-1.3); Estimated Creatinine Clearance 36.5 mL/min (>60); Globulin 3.0 gm/dL (2.3-3.5); Glucose 116 mg/dL (74-106); Magnesium 1.8 mg/dL (1.6-2.6); Osmolality,Calculated 272 (275-295); Potassium 4.3 mMol/L (3.4-5.1); Procalcitonin 0.10 ng/ml (0.0-0.49); Sodium 137 mMol/L (136-145); Total Protein 6.6 gm/dL (5.7-8.2); eGFR > 60 See Note
[2025-09-21 10:06] LABS: B-Type Natriuretic Peptide 63 pg/mL (0-100)
[2025-09-21 10:11] VITALS: BP 100/73; PULSE 85; RESP 26; TEMP 37.2; O2SAT 93
[2025-09-21 10:50] LABS: Collection Type, Urine Clean Catch
[2025-09-21 10:57] LABS: Bilirubin,Urine Negative (Negative); Blood,Urine Trace (Negative); Clarity,Urine Clear (Clear/Hazy); Color,Urine Lt-Yellow (Lt Yel-Yel); Glucose, Urine Negative (Negative); Hyaline Casts,Urine < 1 /hpf (0-1); Ketones,Urine Negative (Negative); Leukocyte Esterase,Urine Negative (Negative); Nitrite,Urine Negative (Negative); PH,Urine 6.5 (5.0-7.0); Protein,Urine Negative (Neg - Trace); RBC,Urine 12 /hpf (0-3); Specific Gravity,Urine 1.013 (1.001-1.035); Squamous Epithelial Cell,Urine 1 /hpf (0-5); Urobilinogen,Urine Negative mg/dL (0.0-1.0); WBC,Urine 3 /hpf (0-5)
[2025-09-21 11:37] VITALS: BP 128/87; PULSE 78; RESP 21; TEMP 36.6; O2SAT 98
== END 2025-09-21 12:56 | disposition home or self-care (01) ==
PROVIDERS: Emergency Provider Family Medicine; PCP Family Medicine
DX: J10.1 Influenza due to other identified influenza virus with other respiratory manifestations (principal); E78.00 Pure hypercholesterolemia, unspecified
CPT/HCPCS: 36415; 71045; 80053; 81001; 83735; 83880; 84145; 85025; 87040; 87502; 87634; 87635; 93005; 99284

== ENCOUNTER 2025-09-26 10:08 | Inpatient (IN) | payer MEDICARE, MEDICAID, SELFPAY ==
[2025-09-26] VITALS (13 sets, daily range): BP systolic 79–147; BP diastolic 25–91; PULSE 65–97; RESP 18–22; TEMP 36.1–36.8; O2SAT 92–100
--- NOTE | 2025-09-26 10:31 | XR_ITS ---
EXAMINATION: AP chest single view TECHNIQUE: AP portable upright chest single view Date and time: September 26, 2025, 1038 hours INDICATIONS: Shortness of breath today. FINDINGS: Normal heart size Suspicious for mild pneumonia left base with air bronchograms No pulmonary edema Prominent osteopenia IMPRESSION: Suspicious for mild pneumonia left base
[2025-09-26 10:45] LABS: Collection Type, Urine Clean Catch
[2025-09-26 10:51] LABS: Bacteria,Urine 1+; Bilirubin,Urine Negative (Negative); Blood,Urine 2+ (Negative); Color,Urine Yellow (Lt Yel-Yel); Glucose, Urine Negative (Negative); Ketones,Urine Negative (Negative); Leukocyte Esterase,Urine Positive (Negative); Nitrite,Urine Negative (Negative); PH,Urine 7.5 (5.0-7.0); Protein,Urine 1+ (Neg - Trace); RBC,Urine 52 /hpf (0-3); Specific Gravity,Urine 1.012 (1.001-1.035); Squamous Epithelial Cell,Urine 1 /hpf (0-5); Urobilinogen,Urine Negative mg/dL (0.0-1.0); WBC,Urine 253 /hpf (0-5)
[2025-09-26] MEDS: ALBUTEROL RT 2.5 MG/0.5 ML NEBU 5 MG INH (10:57)
[2025-09-26] MEDS: SODIUM CHLORIDE RT SOL 0.9% 3 ML NEBU INH (10:58)
[2025-09-26 10:59] LABS: Clarity,Urine Cloudy (Clear/Hazy)
[2025-09-26] MEDS: SODIUM CHLORIDE 0.9% 500 ML 500 ML 50 ML IV (11:16)
[2025-09-26] MEDS: MethylPREDNISolone SOD SUCC 62.5 MG/ML 2ML VIAL 60 MG IVP (11:16)
[2025-09-26 11:47] LABS: Base Excess, Venous 1 (-3-3); O2 Saturation, Venous 44 % (96-97); PCO2, Venous 52 mmHg (36-56); PO2, Venous 28 mmHg (15-58); pH, Venous 7.34 (7.33-7.66)
[2025-09-26 11:48] LABS: Lactate (Lactic Acid) 3.5 mMol/L (0.4-2.0)
[2025-09-26 12:44] LABS: Basophils # (Auto) 0.1 Thou/mm3 (0.0-0.2); Basophils % (Auto) 0 % (0-2.5); Eosinophils # (Auto) 0.0 Thou/mm3 (0.0-0.5); Eosinophils % (Auto) 0 % (0-10); Hematocrit 47.6 % (36.0-46.0); Hemoglobin 15.8 g/dL (12.0-16.0); Immature Granulocytes Auto 0.08 Thou/mm3 (0.00-0.00); Lymphocytes # (Auto) 3.1 Thou/mm3 (1.0-4.8); Lymphocytes % (Auto) 15 % (10-50); Mean Corpuscular HGB Conc 33.2 g/dl (31.0-37.0); Mean Corpuscular Hemoglobin 31.5 pg (25.0-35.0); Mean Corpuscular Volume 95 fL (80-100); Monocytes # (Auto) 1.0 Thou/mm3 (0.0-0.8); Monocytes % (Auto) 5 % (0-12); Neutrophils # (Auto) 16.6 Thou/mm3 (1.8-7.7); Neutrophils % (Auto) 80 % (37-80); Nucleated Red Blood Cell # 0.00 Thou/mm3 (0.00-0.00); Nucleated Red Blood Cell % 0 /100 WBC (0); Platelet Count 307 Thou/mm3 (140-440); RDW Standard Deviation 45.5 fL (36.4-46.3); Red Blood Count 5.01 Miln/mm3 (4.00-5.20); White Blood Count 20.8 Thou/mm3 (3.6-11.0)
--- NOTE | 2025-09-26 12:47 | PC.NURSE ---
informed md siegel of low o2 sats on 15L told rt to come evaluate to see if pt can tolerate bipap
--- NOTE | 2025-09-26 12:48 | PC.NURSE ---
called rt to come evaluate pt to see if they can tolerate bipap
[2025-09-26] MEDS: cefTRIAXone 2 GM in SODIUM CHLORIDE 0.9% (Popper) 50 ML IV (13:20)
[2025-09-26] MEDS: SODIUM CHLORIDE 0.9% 1000 ML 1,000 ML 999 ML IV (13:21)
[2025-09-26] MEDS: AZITHROMYCIN INJ 500 MG in SODIUM CHLORIDE 0.9% 250 ML 250 ML 250 MG IV (13:21)
--- NOTE | 2025-09-26 13:30 | PC.NURSE ---
PT PLACED ON HIGH FLOW NC AT 30L WITH 100%02. PT TOLERATING WELL
[2025-09-26 13:51] LABS: Alanine Aminotransferase 10 U/L (10-49); Albumin, Serum 3.2 gm/dL (3.4-4.8); Albumin/Globulin Ratio 0.9 (1.2-2.2); Alkaline Phosphatase 131 U/L (46-116); Aspartate Amino Transferase 25 U/L (0-34); BUN/Creatinine Ratio 6 Ratio (12-20); Bilirubin,Total 0.3 mg/dL (0.3-1.2); Blood Urea Nitrogen < 5 mg/dL (9-23); Calcium 9.9 mg/dL (8.3-10.6); Calcium (Corrected) 10.5 mg/dL (8.5-10.1); Carbon Dioxide 21.7 mMol/L (20.0-31.0); Creatinine (Component) 0.8 mg/dL (0.6-1.3); Globulin 3.4 gm/dL (2.3-3.5); Glucose 117 mg/dL (74-106); Magnesium 2.0 mg/dL (1.6-2.6); Total Protein 6.6 gm/dL (5.7-8.2); Troponin I < 0.020 ng/mL (0.0-0.045); eGFR > 60 See Note
[2025-09-26] MEDS: levETIRAcetam INJ 100 MG/ML VIAL 5ML 1000 MG IVP ×2 (13:58→19:55)
[2025-09-26 14:01] LABS: B-Type Natriuretic Peptide < 20 pg/mL (0-100)
--- NOTE | 2025-09-26 14:07 | PC.NURSE ---
RT AT BEDSIDE FOR ABG, DIFFICULTY OBTAINING ABG AT THIS TIME. STATES HE WILL COME BACK AND TRAY AGAIN SHORLTY
[2025-09-26 14:08] LABS: INR 1.1 (0.9-1.3); Prothrombin Time 11.2 Seconds (9.0-12.2)
--- NOTE | 2025-09-26 14:14 | PD.EDSOB ---
ED SOB =RME/HPI General Chief Complaint: Shortness of Breath/Dyspnea Stated Complaint: SOB Time Seen by Provider: 09/26/25 10:31 Arrival date/time: 09/26/25 10:08 Limitations: no limitations RME / HPI RME / HPI Narrative: 70 year old female with history of Down syndrome, seizures, hypertension, hypothyroidism, asthma, recurrent pneumonia on 2L home oxygen presents to the ED BIBA from retirement for evaluation of shortness of breath today. Per medics report, on scene the patient appeared to be in distress and saturating mid 80s. Was placed on an oxy mask and given a breathing treatment with oxygen saturation improving to mid 90s. No other acute symptoms were reported by retirement staff. Related Data Home Medications ?Medication ?Instructions ?Recorded ?Confirmed aspirin 81 mg chewable tablet 81 mg PO DAILY Elevated Lipids 09/23/23 08/26/25 calcium 600 mg (as 1 tab PO BID 09/23/23 08/26/25 carbonate)-vitamin D3 10 mcg (400 unit) tablet docusate sodium 100 mg capsule 100 mg PO BID Constipation 09/23/23 08/26/25 levothyroxine 75 mcg tablet 75 mcg PO DAILY 09/23/23 08/26/25 loratadine 10 mg tablet 10 mg PO DAILY 09/23/23 08/26/25 montelukast 10 mg tablet 10 mg PO DAILY 09/23/23 08/26/25 quetiapine 100 mg tablet 100 mg PO HS 09/23/23 08/28/25 cranberry extract 500 mg capsule 500 mg PO QDAY 12/04/23 08/26/25 (Cranberry Concentrate) methenamine hippurate 1 gram 1 g PO QDAY 08/10/24 08/26/25 tablet (Hiprex) polyethylene glycol 3350 17 17 g PO QDAY 03/13/25 08/26/25 gram/dose oral powder cenobamate 50 mg tablet (Xcopri) 50 mg PO QDAY 08/26/25 08/26/25 Previous Rx's ?Medication ?Instructions ?Recorded DME Order Set (Bipap) #1 ea 05/30/25 amoxicillin 875 mg-potassium 1 tab PO BID #4 tabs 08/29/25 clavulanate 125 mg tablet levetiracetam 500 mg tablet 1,000 mg (2 x 500 mg) PO QDAY #10 08/29/25 tabs levetiracetam 750 mg tablet 1,500 mg (2 x 750 mg) PO QPM #14 08/29/25 tabs doxycycline hyclate 100 mg capsule 100 mg PO BID #14 caps 09/04/25 guaifenesin 200 mg/5 mL oral liquid 400 mg (10 mL) PO Q6H PRN 09/21/25 congestion #118 mL Allergies Allergy/AdvReac Type Severity Reaction Status Date / Time No Known Allergies Allergy Unverified 03/12/25 16:06 Review of Systems Review of Systems ROS Unobtainable: unobtainable due to medical condition Past Medical History Past Medical History NEUROLOGIC: Positive Neurological Disorders and Seizures CARDIAC: Positive Cardiac Disorders, Hypercholesterolemia and Hypotension RESPIRATORY: Positive Asthma and Pneumonia GASTROINTESTINAL: Positive Gastrointestinal Bleed ENT: Positive Cataracts ENDOCRINE: Positive Hyperthyroidism and Hypothyroidism OTHER HISTORY: Positive Hospitalization, Down Syndrome and Developmental Delay Family History FAMILY HISTORY: Negative Family Cardiac Disorders Social History SMOKING STATUS: Unknown if ever smoked ED Exam General Limitations: Present no limitations General appearance: Present alert and other (down syndrome facies) Head Head exam: Present atraumatic and normocephalic Eye Eye exam: Present normal appearance, PERRL and EOMI ENT ENT exam: Present normal exam, normal oropharynx and mucous membranes moist Neck Neck exam: Present normal inspection, full ROM, trachea midline and other (No JVD ) Chest Chest inspection: Present normal inspection and symmetric chest wall rise Respiratory Respiratory exam: Present other (Bilateral posterior rhonchi and crackles at the bases, increased respiratory rate) Cardiovascular Cardiovascular exam: Present regular rate, normal rhythm and normal heart sounds Abdominal Exam Abdominal exam: Present soft and normal bowel sounds Extremities Exam Extremities exam: Present normal inspection and full ROM Back Exam Back exam: Present normal inspection and full ROM Neurological Exam Neurological exam: Present alert Skin Skin exam: Present warm, dry, intact and normal color Course Quality Measures none Orders Category Date Time Status COVID-19 Screening Questionnaire NOW Care 09/26/25 13:49 Active Decision to Admit X1 Care 09/26/25 13:49 Active In and Out Catheter X1 Care 09/26/25 10:21 Completed Insert [Insert IV] NOW Care 09/26/25 10:31 Active Referral Respiratory Therapy Stat Cons 09/26/25 12:57 Active CXRP [XR chest 1V portable] Stat Exams 09/26/25 10:31 Completed ABG [Arterial Blood Gas] Stat Lab 09/26/25 13:46 Ordered B-Type Natriuretic Peptide Stat Lab 09/26/25 12:26 Completed Blood Culture (Lab) Stat Lab 09/26/25 11:40 Received CBC Stat Lab 09/26/25 12:26 Completed Comprehensive Metabolic Panel Stat Lab 09/26/25 11:40 Results Lactic Acid [Lactate (Lactic Acid)] Stat Lab 09/26/25 11:40 Results Magnesium Stat Lab 09/26/25 11:40 Results Prothrombin Time with INR Stat Lab 09/26/25 13:44 Completed Troponin I Stat Lab 09/26/25 11:40 Results Urinalysis Stat Lab 09/26/25 10:37 Completed Venous Blood Gas Stat Lab 09/26/25 11:40 Completed ALBUTEROL RT 0.5ml [Proventil Rt 0.5ml] Med 09/26/25 10:33 Discontinued 5 mg INH X1 ONE Azithromycin Inj [Zithromax Inj] 500 mg Med 09/26/25 12:56 Active Sodium Chloride 0.9% 250 ml [Ns] 250 ml IV QDAY MethylPREDNISolone.* [SoluMEDROL Inj] Med 09/26/25 10:31 Discontinued 60 mg IVP X1 ONE Sodium Chloride 0.9% 1000 ml [Ns] 1,000 ml Med 09/26/25 12:55 Discontinued IV 999 mls/hr Sodium Chloride 0.9% 500 ml [Ns] 500 ml Med 09/26/25 10:31 Discontinued IV 50 mls/hr Sodium Chloride Rt Shannon 0.9% [NS Rt Shannon 0.9%] Med 09/26/25 10:33 Active 3 ml INH PRN PRN cefTRIAXone [Rocephin] 2 gm Med 09/26/25 12:55 Discontinued SODIUM CHLORIDE 0.9% (Popper) [Ns 0.9% (P)] 50 ml IV X1 levETIRAcetam INJ [Keppra Inj] Med 09/26/25 13:45 Discontinued 1,000 mg IVP X1 ONE Vital Signs Vital signs: Vital Signs Temperature 98.3 F 09/26/25 10:25 Pulse Rate 84 09/26/25 10:25 Respiratory Rate 18 09/26/25 10:25 Blood Pressure 100/54 L 09/26/25 10:25 Pulse Oximetry (%) 96 09/26/25 10:25 Oxygen Delivery Method Oxy Mask 09/26/25 10:25 Oxygen Flow Rate 6 09/26/25 10:25 Shortness of Breath / Dyspnea MDM Narrative MDM Narrative:: IGinette am scribing for and in the presence of Dr. Allison. 70 year old female with history significant for Down syndrome, seizure disorder, hypertension, hypothyroidism, asthma, recurrent pneumonia, and chronic hypoxic respiratory failure on 2L home oxygen was brought in by ambulance from her retirement for evaluation of acute shortness of breath. Labs and chest X-ray were obtained to evaluate for infectious and cardiopulmonary etiologies. Labs were notable for leukocytosis to 20.8 and elevated lactic acid of 3.5. Urinalysis was consistent with urinary tract infection. Chest X-ray shows mild pneumonia left base. During the ED course, the patient developed worsening hypoxia requiring an increase in oxygen. She was also noted to be hypotensive with blood pressures as low as 79/25. The patient was treated with IV fluids resulting in improvement of blood pressure to 147/91. The patient was given an Albuterol treatment, IV fluids, Methylprednisolone,Rocephin, Azithromycin, and Keppra. 1348: I spoke to hospitalist team A for admission. Discussed patients PMHx, HPI, ED course, exam findings, labs, and radiology results. The hospitalist agree to accept the patient for admission. Patient data External records reviewed:: [facility] previous records and EMS form Clinical information provided by:: EMS Social determinants that could affect healthcare access:: housing (retirement resident ) Patient has the following chronic illnesses:: Down syndrome, seizures, hypertension, hypothyroidism, asthma, recurrent pneumonia on 2L home oxygen How is presenting disease/condition affected by chronic disease/condition?: exacerbated by Evaluation data The following diagnostics were reviewed and interpreted by me:: lab results and radiology exam(s) Lab and/or radiology exams considered but not ordered:: None Interpretation Summary: Ordering Physician: Jeff Allison MD Date of Service: 09/26/25 Procedure(s): XR chest 1V portable Accession Number(s): [id number] cc: Jeff Allison MD; Jose Manuel Croft MD; Leo Rosas MD~ EXAMINATION: AP chest single view TECHNIQUE: AP portable upright chest single view Date and time: September 26, 2025, 1038 hours INDICATIONS: Shortness of breath today. FINDINGS: Normal heart size Suspicious for mild pneumonia left base with air bronchograms No pulmonary edema Prominent osteopenia IMPRESSION: Suspicious for mild pneumonia left base Dictated By: Jose Manuel Croft MD Signed By: <Electronically signed by Jose Manuel Croft MD in OV> 09/26/25 1058 Medications / Prescriptions Medications or Prescriptions considered but not ordered:: None Medication administrations:: Medication Administration History Azithromycin 500 mg/ Sodium (Chloride) 250 mls @ 250 mls/hr IV QDAY JERRY Stop: 10/03/25 12:55 Last Admin: 09/26/25 13:21 Dose: 250 mls/hr Documented By: EF Sodium Chloride (Sodium Chloride Rt Shannon 0.9% 3 Ml Nebu) 3 ml INH PRN PRN PRN Reason: SOLN Stop: 10/26/25 10:32 Last Admin: 09/26/25 10:58 Dose: 3 ml Documented By: AA Discontinued Medications Albuterol (Albuterol Rt 2.5 Mg/0.5 Ml Nebu) 5 mg INH X1 ONE Stop: 09/26/25 10:34 Last Admin: 09/26/25 10:57 Dose: 5 mg Documented By: AA Sodium Chloride (Ns) 500 mls @ 50 mls/hr IV .Q10H ONE Stop: 09/26/25 20:30 Last Infusion: 09/26/25 13:22 Dose: 0 mls/hr Documented By: Admin: 09/26/25 11:16 Dose: 50 mls/hr Documented By: SM Sodium Chloride (Ns) 1,000 mls @ 999 mls/hr IV .Q1H1M ONE Stop: 09/26/25 13:55 Last Admin: 09/26/25 13:21 Dose: 999 mls/hr Documented By: EF Ceftriaxone Sodium 2 gm/ (Sodium Chloride) 50 mls @ 100 mls/hr IV X1 ONE Stop: 09/26/25 13:24 Last Infusion: 09/26/25 13:50 Dose: Infused Documented By: Admin: 09/26/25 13:20 Dose: 100 mls/hr Documented By: EF Levetiracetam (Levetiracetam Inj 100 Mg/Ml Vial 5ml) 1,000 mg IVP X1 ONE Stop: 09/26/25 13:46 Last Admin: 09/26/25 13:58 Dose: 1,000 mg Documented By: CARA Methylprednisolone Sodium Succinate (Methylprednisolone Sod Succ 62.5 Mg/Ml 2ml Vial) 60 mg IVP X1 ONE Stop: 09/26/25 10:32 Last Admin: 09/26/25 11:16 Dose: 60 mg Documented By: SM See above Consultations Consultation(s) initiated? (list below): Yes Consultation #1 (Physician, Specialty, Details): See above Diagnosis Shortness of Breath Differential Diagnosis: acute exacerbation of chronic obstructive airways disease, congestive heart failure, community acquired pneumonia and asthma with exacerbation Most likely diagnosis given after review of the tests above:: Pneumonia Acute respiratory failure Hypoxia Admission Indicated Admission indicated?: indicated Admission Request Was there a request for admission?: Yes Admission Attestation Admission request attestation: Discussed case with [] from Hospitalist service regarding admission. Discussed patients ED course, exam findings, labs, and radiology results. The Hospitalist [agrees,declines] to accept the patient for admission. Disposition Plan Disposition Plan: Admit Critical Care Time Critical Care Time Critical Care Time: Yes Total Critical Care Time (min.): 45 Attestation: The high probability of sudden, clinically significant deterioration in the patient's condition required the highest level of my preparedness to intervene urgently. The services I provided to this patient were to treat and/or prevent clinically significant deterioration. Services included the following: chart data review, reviewing nursing notes and/or old charts, documentation time, fashion consultant selling collaboration regarding findings and treatment options, medication orders and management, direct patient care, vital sign assessments and ordering, interpreting and reviewing diagnostic studies and lab tests. Aggregate critical care time includes only time during which I was engaged in work directly related to the patient's care, as described above, whether at bedside or elsewhere in the Emergency Department. It did not include time spent performing other reported procedures or the services of residents, students, nurses or physician assistants. Discharge Plan Plan Patient Disposition: Admit Acute Care w/in Hospital Prescriptions/Referrals Prescriptions/Med Rec: No Action methenamine hippurate [Hiprex] 1 gram tablet 1 g PO QDAY quetiapine 100 mg tablet 100 mg PO HS levothyroxine 75 mcg tablet 75 mcg PO DAILY docusate sodium 100 mg capsule 100 mg PO BID aspirin 81 mg tablet,chewable 81 mg PO DAILY montelukast 10 mg tablet 10 mg PO DAILY loratadine 10 mg tablet 10 mg PO DAILY calcium carbonate-vitamin D3 600 mg-10 mcg (400 unit) tablet 1 tab PO BID (DME) Bipap Misc See Rx Instructions .Route Qty: 1 0RF Rx Instructions: As directed cranberry extract [Cranberry Concentrate] 500 mg Capsule 500 mg PO QDAY Rx Instructions: administer with meals polyethylene glycol 3350 17 gram/dose powder 17 g PO QDAY Xcopri 50 mg tablet 50 mg PO QDAY Rx Instructions: administer weeks 5 and 6 of therapy amoxicillin-pot clavulanate 875-125 mg tablet 1 tab PO BID Qty: 4 0RF levetiracetam 500 mg tablet 1,000 mg PO QDAY Qty: 10 0RF Patient Comments: take 2 tabs by mouth in the morning and 3 tabs by mouth at bedtime levetiracetam 750 mg tablet 1,500 mg PO QPM Qty: 14 0RF Patient Comments: 1500 MG (2 X 750 MG) ORALLY TWICE A DAY FOR 1 MONTH TAKE TWO TABLETS BY MOUTH TWICE A DAY doxycycline hyclate 100 mg capsule 100 mg PO BID Qty: 14 0RF guaifenesin 200 mg/5 mL liquid 400 mg PO Q6H PRN (Reason: congestion) Qty: 118 0RF Referrals: Leo Rosas MD [Primary Care Provider, Family Practice] - In 1 week Problem List Clinical Impression: Pneumonia, Acute respiratory failure, Hypoxia Patient/Caregiver Discharge Instructions Print Language: Norwegian Stand Alone Forms: Laurie Award Info., Patient Portal Info Letter
--- NOTE | 2025-09-26 14:27 | ESHP_ITS ---
<Statement entered by Norma Fernández MD - 10/01/25 07:58> I reviewed above note and agree with findings and plans. I have also personally examined the patient with medicine team and went over assessment and plan with medical team including manager international and resident physician. <Statement entered by Sabrina Mitchell MD - 09/26/25 18:26> In summary: 70-year-old female with Down syndrome and a history of seizure disorder, asthma, and recurrent pneumonia who was admitted on 09/26/25 for acute hypoxic respiratory failure and community-acquired pneumonia. This follows a recent diagnosis of Influenza B on 09/21. On presentation, she was significantly hypoxic with oxygen saturations in the mid-80s and demonstrated both leukocytosis and lactic acidosis, suggestive of a systemic inflammatory response. She is currently being treated with high-flow oxygen and a course of IV antibiotics. Her clinical picture is further complicated by a suspected UTI and a mildly obtunded mental state (GCS 10, which is her baseline). She has received fluid resuscitation with 3L of normal saline and is currently on maintenance fluids while providers await results from blood and urine cultures. Regarding her chronic conditions, her Keppra dose has been temporarily adjusted to 1000mg IV BID pending a neurology consultation for definitive dosing. She remains on seizure precautions and is strictly NPO pending a swallow evaluation. Levothyroxine 75 mcg PO also adjusted to IV equivalent until swallow eval. I?ve reviewed the note and agree with this assessment and plan, with the exceptions outlined above. I personally went over the labs, imaging, home medications, and prior records, and examined the patient. The case was also reviewed with the attending physician. Please note: this document was transcribed using voice recognition technology; minor inaccuracies may be present. Sabrina Mitchell DO PGY II Documentation for date of: 09/26/25 HPI History of Present Illness Chief complaint: shortness of breathe History of present illness: Ms. Barton is a 70 years old female with history of Down syndrome, seizure disorder on Keppra, recurrent pneumonia, asthma, and hypothyroidism presents to the ED on 09/26/25 for shortness of breathe. Patient is nonverbal, GCS 10 at baseline. History obtained from ED and RN at bedside. Patient was BIBA from long-term after provider at the facility found patient to be saturating in mid 80s on nasal canula. She was placed on 6L via simple mask per EMS with O2 saturation of 96%. There is no other reported acute symptoms by long-term staff. Upon chart review, she was seen in the ED on 09/04/25 for left base pneumonia and was treated. She was seen again on 09/21/25 for Influenza B. Of note, she was admitted to ICU in 2024 for shock likely secondary to community acquired pneumonia. ED Course In the ED, WBC 20.8, Hgb 15.8, Plt 307, Na 144, K 4.5, Anion gap 17, BUN <5, Cr 0.8, Glucose 117, Lactate 3.5, BNP <20. VBG 7.34/52. Patient was found hypotensive on arrival, received 1.5L of NaCl. She also received methylprednisolon 60mg x1, Azithromycin 500mg x1, Rocpehin 2gm x1. Keppra 1000mg x 1. Repeat BP normotensive. CXR revealed mild pneumonia. UA leukocyte esterase positive. 1+ bacteria. 253 WBC. ROS * Constitutional: Resp distress, a/o x 3, denies fever/chills. * GI: Denies nausea, vomiting. * CV: Denies chest pain or palpitations. * Resp: +SOB * : Denies dysuria, CVA tenderness, suprapubic tenderness. * Neuro: Denies dizziness, no focal deficits. 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 * Denies alcohol, drug, or smoking history. Surgical History * Unknown Allergies * NKDA Home Meds * aspirin 81 mg, calcium carbonate-vitamin D3, cranberry extract 500 mg, Docusate 100 mg, Levetiracetam 1000 mg, Keppra 1,500 mg every afternoon at 3PM, Levothyroxine 75 mcg, loratadine 10 mg, Montelukast 10mg, polyethylene glycole Exam Vital Signs Temp Pulse Resp BP Pulse Ox O2 Del Method O2 Flow Rate 97.6 F 86 21 H 125/54 L 100 High Flow Nasal Cannula 30 09/26/25 12:38 09/26/25 13:47 09/26/25 13:47 09/26/25 13:47 09/26/25 13:47 09/26/25 13:47 09/26/25 13:47 FiO2 100 09/26/25 13:47 Narrative Exam General: Obtunded. Nonverbal. GCS 10 at baseline. HEENT: Normocephalic, atraumatic. Neck: Supple, no JVD Cardiovascular: Regular rate and rhythm. No murmurs, rubs, or gallops. Respiratory: Clear to auscultation bilaterally. Normal respiratory effort. No wheeze, crackles appreciated. Abdomen: Soft, nontender, nondistended. Skin: Warm, dry, intact. No rashes or lesions. Results: Labs 09/26/25 12:26 09/26/25 11:40 Labs: Short CBC 09/26/25 Range/Units 12: WBC 20.8 H D (3.6-11.0) Thou/mm3 Hgb 15.8 (12.0-16.0) g/dL Hct 47.6 H (36.0-46.0) % Plt Count 307 D (140-440) Thou/mm3 BMP 09/26/25 11:40 Carbon Dioxide 21.7 BUN < 5 L Creatinine 0.8 Glucose 117 H Calcium 9.9 Cardiac Enzymes 09/26/25 Range/Units 11:40 Troponin I < 0.020 (0.0-0.045) ng/mL Liver Function 09/26/25 Range/Units 11:40 Total Bilirubin 0.3 (0.3-1.2) mg/dL AST 25 (0-34) U/L ALT 10 (10-49) U/L Alkaline Phosphatase 131 H (46-116) U/L Albumin 3.2 L (3.4-4.8) gm/dL Urine 09/26/25 Range/Units 10:37 Urine Color Yellow (Lt Yel-Yel) Urine Clarity Cloudy A (Clear/Hazy) Urine pH 7.5 H (5.0-7.0) Ur Specific Yeoman 1.012 (1.001-1.035) Urine Protein 1+ A (Neg - Trace) Urine Glucose (UA) Negative (Negative) ABG Interpretation ABG results: 09/26/25 11:40 VBG pH 7.34 VBG pCO2 52 VBG pO2 28 VBG Base Excess 1 Quality Measures Quality Measures VTE prophylaxis Advance care planning discussed with:: patient Medications Home Medications and Allergies Home Medications ?Medication ?Instructions ?Recorded ?Confirmed ?Type aspirin 81 mg chewable tablet 81 mg PO DAILY Elevated Lipids 09/23/23 08/26/25 History calcium 600 mg (as 1 tab PO BID 09/23/23 History carbonate)-vitamin D3 10 mcg (400 unit) tablet docusate sodium 100 mg capsule 100 mg PO BID Constipat ion 09/23/23 08/26/25 History levothyroxine 75 mcg tablet 75 mcg PO DAILY 09/23/23 1 10/26/24 History loratadine 10 mg tablet 10 mg PO DAILY 09/23/2308/05 History montelukast 10 mg tablet 10 mg PO DAILY 09/23/2308/05 History quetiapine 100 mg tablet 100 mg PO HS 09/23/23 History cranberry extract 500 mg capsule 500 mg PO QDAY 08/26/25 History (Cranberry Concentrate) methenamine hippurate 1 gram 1 g PO QDAY 08/10/2408/05 History tablet (Hiprex) polyethylene glycol 3350 17 17 g PO QDAY 03/13/2508/05 History gram/dose oral powder cenobamate 50 mg tablet (Xcopri) 50 mg PO QDAY 5 08/26/25 History Allergies Allergy/AdvReac Type Severity Reaction Status Date / Time No Known Allergies Allergy Unverified 03/12/25 16:06 Visit Medications Azithromycin 500 mg/ Sodium (Chloride) 250 mls @ 250 mls/hr IV QDAY JERRY Stop: 10/03/25 12:55 Last Admin: 09/26/25 13:21 Dose: 250 mls/hr Sodium Chloride (Sodium Chloride Rt Shannon 0.9% 3 Ml Nebu) 3 ml INH PRN PRN PRN Reason: SOLN Stop: 10/26/25 10:32 Last Admin: 09/26/25 10:58 Dose: 3 ml Discontinued Medications Albuterol (Albuterol Rt 2.5 Mg/0.5 Ml Nebu) 5 mg INH X1 ONE Stop: 09/26/25 10:34 Last Admin: 09/26/25 10:57 Dose: 5 mg Sodium Chloride (Ns) 500 mls @ 50 mls/hr IV .Q10H ONE Stop: 09/26/25 20:30 Last Infusion: 09/26/25 13:22 Dose: 0 mls/hr Sodium Chloride (Ns) 1,000 mls @ 999 mls/hr IV .Q1H1M ONE Stop: 09/26/25 13:55 Last Infusion: 09/26/25 14:23 Dose: Infused Ceftriaxone Sodium 2 gm/ (Sodium Chloride) 50 mls @ 100 mls/hr IV X1 ONE Stop: 09/26/25 13:24 Last Infusion: 09/26/25 13:50 Dose: Infused Levetiracetam (Levetiracetam Inj 100 Mg/Ml Vial 5ml) 1,000 mg IVP X1 ONE Stop: 09/26/25 13:46 Last Admin: 09/26/25 13:58 Dose: 1,000 mg Methylprednisolone Sodium Succinate (Methylprednisolone Sod Succ 62.5 Mg/Ml 2ml Vial) 60 mg IVP X1 ONE Stop: 09/26/25 10:32 Last Admin: 09/26/25 11:16 Dose: 60 mg Assessment & Plan Plan Ms. Barton is a 70 years old female with history of Down syndrome, seizure disorder on Keppra, recurrent pneumonia, asthma, and hypothyroidism presents to the ED on 09/26/25 for shortness of breathe. She was tested positive for Influenza B on 09/21/25. COVID test neg on admission. She was admitted for community acquired pneumonia. #Acute respiratory failure with hypoxia #Community acquired pneumonia #Influenza B positive (09/21/25) #Recurrent pneumonia #UTI #Leukocytosis #Lactic acidosis Reported to have O2 sat in mid 80s at long-term. CXR revealed mild pneumonia. Recent Influenza B infection. UA on admission leuk est +, 1+ juventino - Azithromycin 500mg x 1 and Rocephin 2g x1 in ED (09/26/25) - NaCl 0.9% 1.5L in ED (09/26/25) - 500mL bolus x1 (09/26/25) - Maintenance fluid 1L @ 85ml/hr - Continue Rocephin 1g QD and Azithromycin 500mg QD (09/27 ~ - Oxygen as needed, on high flow now - Pending Bcx - Pending Ucx - Rpt lactate ordered #Hx of Seizure disorder on Keppra #Hypothyroidism #Asthma #Down syndrome Chronic medical problems. GCS 10 at baseline. Nonverbal. - seizure precaution - bedside swallow eval - Keppra 1000mg PO BID --> given that patient is obtunded, non-alert/oriented, will start her on 1000mg BID for now, increase back to home dose if needed (Home dose 1000mg in AM, 1500mg in PM) --> neurology consult for dose adjustment. - Levothyroxine 75mcg PO BID - Monteleukast 10mg PO QD Health maintenance Dispo: CAP tx, oxygen demand DVT prophylaxis: Lovenox GI prophylaxis: N/A Antibiotics: Rocephin and azithromycin Bowel Regimen: N/A Diet: NPO for now, may resume diet after passing swallow eval. Lines: Peripheral IV Code status: Full code Case discussed with my senior resident Dr. Mitchell Case discussed with my attending Dr. Jolene Villatoro, DO PGY 1
[2025-09-26 14:30] LABS: Anion Gap 17 (7-16); Chloride 102 mMol/L (98-107); Osmolality,Calculated 287 (275-295); Potassium 4.5 mMol/L (3.4-5.1); Sodium 144 mMol/L (136-145)
[2025-09-26 14:44] LABS: Reflex Lactate? Y
[2025-09-26 15:06] LABS: Lactic Acid, 3 HR 3.5 mMol/L (0.4-2.0)
[2025-09-26] MEDS: SODIUM CHLORIDE 0.9% 1000 ML 1,000 ML 85 ML IV (15:23)
[2025-09-26 15:34] LABS: Base Excess -1 (-3-3); HCO3 25 mEq/L (20-26); Inspired Oxygen, FIO2 21 %; O2 Saturation 101 % (91-98); PCO2 44 mmHg (32.0-48.0); PO2 244 mmHg (83-108); pH, Arterial 7.35 (7.35-7.45)
[2025-09-26 15:35] LABS: Allen Test Not Performed; Puncture Site Site Not Noted
[2025-09-26] MEDS: SODIUM CHLORIDE 0.9% 500 ML 250 ML 999 ML IV (16:30)
--- NOTE | 2025-09-26 17:05 | PC.NURSE ---
informed admitting md of low BP 79/47
[2025-09-26] MEDS: SODIUM CHLORIDE 0.9% 500 ML 500 ML 999 ML IV (17:37)
[2025-09-26 18:06] LABS: Lactate (Lactic Acid) 1.9 mMol/L (0.4-2.0)
[2025-09-27] VITALS (8 sets, daily range): BP systolic 98–134; BP diastolic 53–88; PULSE 48–93; RESP 12–18; TEMP 36–36.3; O2SAT 96–100; BMI 20.1
[2025-09-27 05:45] LABS: Basophils # (Auto) 0.0 Thou/mm3 (0.0-0.2); Basophils % (Auto) 0 % (0-2.5); Eosinophils # (Auto) 0.0 Thou/mm3 (0.0-0.5); Eosinophils % (Auto) 0 % (0-10); Hematocrit 36.4 % (36.0-46.0); Hemoglobin 12.3 g/dL (12.0-16.0); Immature Granulocytes Auto 0.07 Thou/mm3 (0.00-0.00); Lymphocytes # (Auto) 1.9 Thou/mm3 (1.0-4.8); Lymphocytes % (Auto) 11 % (10-50); Mean Corpuscular HGB Conc 33.8 g/dl (31.0-37.0); Mean Corpuscular Hemoglobin 32.5 pg (25.0-35.0); Mean Corpuscular Volume 96 fL (80-100); Monocytes # (Auto) 0.6 Thou/mm3 (0.0-0.8); Monocytes % (Auto) 4 % (0-12); Neutrophils # (Auto) 14.3 Thou/mm3 (1.8-7.7); Neutrophils % (Auto) 85 % (37-80); Nucleated Red Blood Cell # 0.00 Thou/mm3 (0.00-0.00); Nucleated Red Blood Cell % 0 /100 WBC (0); Platelet Count 224 Thou/mm3 (140-440); RDW Standard Deviation 46.1 fL (36.4-46.3); Red Blood Count 3.78 Miln/mm3 (4.00-5.20); White Blood Count 16.8 Thou/mm3 (3.6-11.0)
[2025-09-27 06:20] LABS: Alanine Aminotransferase 9 U/L (10-49); Albumin, Serum 2.9 gm/dL (3.4-4.8); Albumin/Globulin Ratio 1.3 (1.2-2.2); Alkaline Phosphatase 95 U/L (46-116); Anion Gap 13 (7-16); Aspartate Amino Transferase 24 U/L (0-34); BUN/Creatinine Ratio 10 Ratio (12-20); Bilirubin,Total 0.2 mg/dL (0.3-1.2); Blood Urea Nitrogen 6 mg/dL (9-23); Calcium 7.8 mg/dL (8.3-10.6); Calcium (Corrected) 8.7 mg/dL (8.5-10.1); Carbon Dioxide 24.4 mMol/L (20.0-31.0); Cardiac Risk Estimate 2.8 RATIO (3.7-5.6); Chloride 110 mMol/L (98-107); Cholesterol 116 mg/dL (132-200); Creatinine (Component) 0.6 mg/dL (0.6-1.3); Globulin 2.2 gm/dL (2.3-3.5); Glucose 97 mg/dL (74-106); HDL Cholesterol 42 mg/dL (40-60); LDL Cholesterol,Calculated 62 mg/dL (0-130); Magnesium 1.6 mg/dL (1.6-2.6); Osmolality,Calculated 290 (275-295); Phosphorous 3.8 mg/dL (2.4-5.1); Potassium 5.1 mMol/L (3.4-5.1); Sodium 147 mMol/L (136-145); Total Protein 5.1 gm/dL (5.7-8.2); Triglycerides 62 mg/dL (30-150); eGFR > 60 See Note
[2025-09-27 06:21] LABS: Thyroid Stimulating Hormone 0.30 uIU/mL (0.55-4.78)
--- NOTE | 2025-09-27 09:34 | ESPR_ITS ---
<Statement entered by Norma Fernández MD - 10/01/25 07:59> I reviewed above note and agree with findings and plans. I have also personally examined the patient with medicine team and went over assessment and plan with medical team including design intern and resident physician. <Statement entered by Sabrina Mitchell MD - 09/27/25 10:48> In summary: 70-year-old female with Down syndrome and a history of seizure disorder, asthma, and recurrent pneumonia who was admitted on 09/26/25 for acute hypoxic respiratory failure and community-acquired pneumonia. This follows a recent diagnosis of Influenza B on 09/21. On presentation, she was significantly hypoxic with oxygen saturations in the mid-80s and demonstrated both leukocytosis and lactic acidosis, suggestive of a systemic inflammatory response. She is currently being treated with high-flow oxygen and a course of IV antibiotics. Her clinical picture is further complicated by a suspected UTI and a mildly obtunded mental state (GCS 10, which is her baseline). She has received fluid resuscitation with 3L of normal saline and is currently on maintenance fluids while providers await results from blood and urine cultures. Regarding her chronic conditions, her Keppra dose has been temporarily adjusted to 1000mg IV BID pending a neurology consultation for definitive dosing. She remains on seizure precautions and is strictly NPO pending a swallow evaluation. Levothyroxine 75 mcg PO also adjusted to IV equivalent until swallow eval. Labs improving however and she appears slightly more awake today. No reported seizures. We are pending further recommendations from neuro regarding KEPPRA dosing. Additionally, BP remains low and she appears to response to fluids. Will continue with maintanance fluids. I?ve reviewed the note and agree with this assessment and plan, with the exceptions outlined above. I personally went over the labs, imaging, home medications, and prior records, and examined the patient. The case was also reviewed with the attending physician. Please note: this document was transcribed using voice recognition technology; minor inaccuracies may be present. Sabrina Mitchell DO PGY II Documentation for date of: 09/27/25 Subjective Subjective Interval history: Ms. Barton is a 70 years old female with history of Down syndrome, seizure disorder on Keppra, recurrent pneumonia, asthma, and hypothyroidism presents to the ED on 09/26/25 for shortness of breathe. Patient is nonverbal, GCS 10 at baseline. History obtained from ED and RN at bedside. Patient was BIBA from [facility] after provider at the facility found patient to be saturating in mid 80s on nasal canula. She was placed on 6L via simple mask per EMS with O2 saturation of 96%. There is no other reported acute symptoms by [facility] staff. Upon chart review, she was seen in the ED on 09/04/25 for left base pneumonia and was treated. She was seen again on 09/21/25 for Influenza B. Of note, she was admitted to ICU in 2024 for shock likely secondary to community acquired pneumonia. 09/27/25: NAOE. BP continues to be labile. Low diastolic pressure noted this AM, maintenance D5NS ordered @ rate of 125ml/hr. Patient was making good urine output per RN. Patient no longer requires high flow, and is on simple mask 3L with O2 sat of 98%. Patient will stay for rocephin and azithro for CAP and UTI. Speech eval ordered for official swallow evaluation. Neurology was consulted to see if her home Keppra dose was appropriate. Patient continues to appear somnolent. Exam Vital Signs Temp Pulse Resp BP Pulse Ox O2 Del Method O2 Flow Rate 96.8 F 64 17 106/58 L 96 Oxy Mask 3 09/27/25 08:00 09/27/25 08:00 09/27/25 08:00 09/27/25 08:00 09/27/25 04:00 09/27/25 08:00 09/27/25 08:00 FiO2 45 09/26/25 23:51 Narrative Exam General: Sleeping. Nonverbal. GCS 10 at baseline. Patient appears more alert today. Simple mask 3L. HEENT: Normocephalic, atraumatic. Neck: Supple, no JVD Cardiovascular: Regular rate and rhythm. No murmurs, rubs, or gallops. Respiratory: Clear to auscultation bilaterally. Normal respiratory effort. No wheeze, crackles appreciated. Abdomen: Soft, nontender, nondistended. Skin: Warm, dry, intact. No rashes or lesions. Objective Labs 09/27/25 04:55 09/27/25 04:55 Labs: Laboratory Results - last 24 hr 09/26/25 09/26/25 09/26/25 10:37 11:40 12:26 WBC 20.8 H D RBC 5.01 Hgb 15.8 Hct 47.6 H MCV 95 MCH 31.5 MCHC 33.2 RDW Std Deviation 45.5 Plt Count 307 D Neut % (Auto) 80 Lymph % (Auto) 15 [place] % (Auto) 5 Eos % (Auto) 0 Baso % (Auto) 0 Neut # (Auto) 16.6 H Lymph # (Auto) 3.1 [place] # (Auto) 1.0 H Eos # (Auto) 0.0 Baso # (Auto) 0.1 Immature Gran # (Auto) 0.08 H Absolute Nucleated RBC 0.00 Immature Gran % 0 Nucleated RBC % 0 PT INR Puncture Site ABG pH ABG pCO2 ABG pO2 ABG HCO3 ABG O2 Saturation ABG Base Excess VBG pH 7.34 VBG pCO2 52 VBG pO2 28 VBG O2 Sat (Gisele) 44 L VBG Base Excess 1 FiO2 Sodium 144 Potassium 4.5 Chloride 102 Carbon Dioxide 21.7 Anion Gap 17 H BUN < 5 L Creatinine 0.8 Estim Creat Clear Calc Not Performed. eGFR > 60 BUN/Creatinine Ratio 6 L Glucose 117 H Calculated Osmolality 287 Lactic Acid 3.5 H Calcium 9.9 Corrected Calcium 10.5 H Phosphorus Magnesium 2.0 Total Bilirubin 0.3 AST 25 ALT 10 Alkaline Phosphatase 131 H Troponin I < 0.020 B-Natriuretic Peptide < 20 Total Protein 6.6 Albumin 3.2 L Globulin 3.4 Albumin/Globulin Ratio 0.9 L Triglycerides Cholesterol LDL Cholesterol, Calc HDL Cholesterol Cholesterol/HDL Ratio TSH Ur Collection Type Clean Catch Urine Color Yellow Urine Clarity Cloudy A Urine pH 7.5 H Ur Specific Keavy 1.012 Urine Protein 1+ A Urine Glucose (UA) Negative Urine Ketones Negative Urine Blood 2+ A Urine Nitrite Negative Urine Bilirubin Negative Urine Urobilinogen (Auto) Negative Ur Leukocyte Esterase Positive Urine RBC 52 H Urine WBC 253 H Ur Squamous Epith Cells 1 Urine Bacteria 1+ A 09/26/25 09/26/25 09/26/25 13:44 14:44 15:23 WBC RBC Hgb Hct MCV MCH MCHC RDW Std Deviation Plt Count Neut % (Auto) Lymph % (Auto) [place] % (Auto) Eos % (Auto) Baso % (Auto) Neut # (Auto) Lymph # (Auto) [place] # (Auto) Eos # (Auto) Baso # (Auto) Immature Gran # (Auto) Absolute Nucleated RBC Immature Gran % Nucleated RBC % PT 11.2 INR 1.1 Puncture Site Site Not Noted ABG pH 7.35 ABG pCO2 44 ABG pO2 244 H ABG HCO3 25 ABG O2 Saturation 101 H ABG Base Excess -1 VBG pH VBG pCO2 VBG pO2 VBG O2 Sat (Gisele) VBG Base Excess FiO2 21 Sodium Potassium Chloride Carbon Dioxide Anion Gap BUN Creatinine Estim Creat Clear Calc eGFR BUN/Creatinine Ratio Glucose Calculated Osmolality Lactic Acid 3.5 H Calcium Corrected Calcium Phosphorus Magnesium Total Bilirubin AST ALT Alkaline Phosphatase Troponin I B-Natriuretic Peptide Total Protein Albumin Globulin Albumin/Globulin Ratio Triglycerides Cholesterol LDL Cholesterol, Calc HDL Cholesterol Cholesterol/HDL Ratio TSH Ur Collection Type Urine Color Urine Clarity Urine pH Ur Specific Keavy Urine Protein Urine Glucose (UA) Urine Ketones Urine Blood Urine Nitrite Urine Bilirubin Urine Urobilinogen (Auto) Ur Leukocyte Esterase Urine RBC Urine WBC Ur Squamous Epith Cells Urine Bacteria 09/26/25 09/27/25 18:04 04:55 WBC 16.8 H RBC 3.78 L Hgb 12.3 D Hct 36.4 D MCV 96 MCH 32.5 MCHC 33.8 RDW Std Deviation 46.1 Plt Count 224 D Neut % (Auto) 85 H Lymph % (Auto) 11 [place] % (Auto) 4 Eos % (Auto) 0 Baso % (Auto) 0 Neut # (Auto) 14.3 H Lymph # (Auto) 1.9 [place] # (Auto) 0.6 Eos # (Auto) 0.0 Baso # (Auto) 0.0 Immature Gran # (Auto) 0.07 H Absolute Nucleated RBC 0.00 Immature Gran % 0 Nucleated RBC % 0 PT INR Puncture Site ABG pH ABG pCO2 ABG pO2 ABG HCO3 ABG O2 Saturation ABG Base Excess VBG pH VBG pCO2 VBG pO2 VBG O2 Sat (Gisele) VBG Base Excess FiO2 Sodium 147 H Potassium 5.1 D Chloride 110 H Carbon Dioxide 24.4 Anion Gap 13 BUN 6 L Creatinine 0.6 Estim Creat Clear Calc Not Performed. eGFR > 60 BUN/Creatinine Ratio 10 L Glucose 97 Calculated Osmolality 290 Lactic Acid 1.9 Calcium 7.8 L D Corrected Calcium 8.7 D Phosphorus 3.8 Magnesium 1.6 Total Bilirubin 0.2 L AST 24 ALT 9 L Alkaline Phosphatase 95 D Troponin I B-Natriuretic Peptide Total Protein 5.1 L Albumin 2.9 L Globulin 2.2 L Albumin/Globulin Ratio 1.3 Triglycerides 62 Cholesterol 116 L LDL Cholesterol, Calc 62 HDL Cholesterol 42 Cholesterol/HDL Ratio 2.8 L TSH 0.30 L Ur Collection Type Urine Color Urine Clarity Urine pH Ur Specific Keavy Urine Protein Urine Glucose (UA) Urine Ketones Urine Blood Urine Nitrite Urine Bilirubin Urine Urobilinogen (Auto) Ur Leukocyte Esterase Urine RBC Urine WBC Ur Squamous Epith Cells Urine Bacteria ABG Interpretation ABG results: 09/26/25 09/26/25 11:40 15:23 ABG pH 7.35 ABG pCO2 44 ABG pO2 244 H ABG HCO3 25 ABG O2 Saturation 101 H ABG Base Excess -1 VBG pH 7.34 VBG pCO2 52 VBG pO2 28 VBG Base Excess 1 Quality Measures Quality Measures VTE prophylaxis Advance care planning discussed with:: patient Assessment & Plan Assessment Current Active Medications: Generic Name Dose Route Start Last Admin Trade Name Freq PRN Reason Stop Dose Admin Acetaminophen 650 mg 09/26/25 15:11 Acetaminophen 325 Mg Tablet PO 10/26/25 15:10 Q6H PRN PAIN SCALE 1-3 (mild Aspirin 81 mg 09/27/25 09:00 Aspirin Ec 81 Mg Tabec PO 10/27/25 08:59 DAILY JERRY Enoxaparin Sodium 40 mg 09/27/25 09:00 Enoxaparin Sod Inj 40 Mg/0.4 Ml Syringe SC 10/11/25 08:59 QDAY [facility] Ceftriaxone Sodium/Dextrose 1 gm in 50 mls @ 100 mls/hr 09/27/25 09:00 Rocephin/D5w 1gm Iv Premix IV 10/04/25 08:59 QDAY [facility] Azithromycin 500 mg/ Sodium 250 mls @ 250 mls/hr 09/27/25 09:00 Chloride IV 10/04/25 08:59 QDAY JERRY Dextrose/Sodium Chloride 500 mls @ 125 mls/hr 09/27/25 09:45 D5-Ns IV 09/27/25 13:44 .Q4H JERRY Levetiracetam 1,000 mg 09/26/25 21:00 09/26/25 19:55 Levetiracetam Inj 100 Mg/Ml Vial 5ml IVP 10/26/25 20:59 1,000 mg Q12HR JERRY Administration Montelukast Sodium 10 mg 09/27/25 09:00 Montelukast Sodium 10 Mg Tablet PO 10/27/25 08:59 DAILY JERRY Sodium Chloride 3 ml 09/26/25 10:33 09/26/25 10:58 Sodium Chloride Rt Shannon 0.9% 3 Ml Nebu INH 10/26/25 10:32 3 ml PRN PRN Administration SOLN Plan Ms. Barton is a 70 years old female with history of Down syndrome, seizure disorder on Keppra, recurrent pneumonia, asthma, and hypothyroidism presents to the ED on 09/26/25 for shortness of breathe. She was tested positive for Influenza B on 09/21/25. COVID test neg on admission. She was admitted for community acquired pneumonia. #Acute respiratory failure with hypoxia #Community acquired pneumonia #Influenza B positive (09/21/25) #Recurrent pneumonia #UTI #Leukocytosis #Lactic acidosis Reported to have O2 sat in mid 80s at [facility]. CXR revealed mild pneumonia. Recent Influenza B infection. UA on admission leuk est +, 1+ juventino - Azithromycin 500mg x 1 and Rocephin 2g x1 in ED (09/26/25) - NaCl 0.9% 1.5L in ED (09/26/25) - 500mL bolus x1 (09/26/25) - Maintenance fluid D5NS @ 125ml/hr - Continue Rocephin 1g QD and Azithromycin 500mg QD (09/27 ~ - Oxygen as needed - Pending Bcx - Pending Ucx - Rpt lactate 3.5 -> 1.9 #Hx of Seizure disorder on Keppra #Hypothyroidism #Asthma #Down syndrome Chronic medical problems. GCS 10 at baseline. Nonverbal. - seizure precaution - Speech swallow eval - Keppra 1000mg PO BID --> given that patient is obtunded, non-alert/oriented, will start her on 1000mg BID for now, increase back to home dose if needed (Home dose 1000mg in AM, 1500mg in PM) --> neurology consult for dose adjustment. - Levothyroxine 75mcg PO BID - Monteleukast 10mg PO QD - TSH 0.30. - F/u Free T3, T4. Health maintenance Dispo: CAP tx, oxygen demand DVT prophylaxis: Lovenox GI prophylaxis: N/A Antibiotics: Rocephin and azithromycin Bowel Regimen: N/A Diet: NPO for now, may resume diet after passing swallow eval. Lines: Peripheral IV Code status: Full code Case discussed with my senior resident Dr. Mitchell Case discussed with my attending Dr. Jolene Villatoro, PGY 1
[2025-09-27] MEDS: cefTRIAXone/D5w 1gm IV premix 1 GM/50 ML BAG IV (09:49)
[2025-09-27] MEDS: AZITHROMYCIN INJ 500 MG in SODIUM CHLORIDE 0.9% 250 ML 250 ML 250 MG IV (09:50)
[2025-09-27] MEDS: levETIRAcetam INJ 100 MG/ML VIAL 5ML 1000 MG IVP ×2 (09:50→21:53)
[2025-09-27] MEDS: ENOXAPARIN SOD INJ 40 MG/0.4 ML SYRINGE SC (09:51)
[2025-09-27] MEDS: DEXTROSE 5%-NS 500 ML 125 ML IV (09:52)
--- NOTE | 2025-09-27 11:17 | PC.SS ---
Pt is from [facility]. SS spoke to Manjinder Camacho, patient's caregiver regarding her d/c plan. Pt is non verbla. Pt was admitted for Shortness Of Breath. Pt transfers with assistance into wheelchair. Pt requires assistance with ADLs. Per Manjinder Camacho, pt is not conserved and [facility] makes her medical decisions. Pt utilizes O2 at home from [facility]. Per Manjinder, pt will require transportation home. Pt followed up with PCP 2 weeks ago. DC plan: [facility] to [facility] Next of Kin: [facility] helps make patient's medical decisions, phone# [phone] PCP: Dr. Leo Rosas Address: Correct on facesheet
[2025-09-27 11:18] LABS: Free T3 2.1 pg/mL (2.3-4.2); Free T4 (Free Thyroxine) 0.97 ng/dL (0.89-1.76)
[2025-09-28] VITALS (8 sets, daily range): BP systolic 104–128; BP diastolic 60–76; PULSE 55–93; RESP 12–30; TEMP 36.1–36.4; O2SAT 94–100
[2025-09-28 06:13] LABS: Basophils # (Auto) 0.1 Thou/mm3 (0.0-0.2); Basophils % (Auto) 1 % (0-2.5); Eosinophils # (Auto) 0.0 Thou/mm3 (0.0-0.5); Eosinophils % (Auto) 0 % (0-10); Hematocrit 37.2 % (36.0-46.0); Hemoglobin 12.4 g/dL (12.0-16.0); Immature Granulocytes Auto 0.04 Thou/mm3 (0.00-0.00); Lymphocytes # (Auto) 1.4 Thou/mm3 (1.0-4.8); Lymphocytes % (Auto) 18 % (10-50); Mean Corpuscular HGB Conc 33.3 g/dl (31.0-37.0); Mean Corpuscular Hemoglobin 31.7 pg (25.0-35.0); Mean Corpuscular Volume 95 fL (80-100); Monocytes # (Auto) 0.6 Thou/mm3 (0.0-0.8); Monocytes % (Auto) 8 % (0-12); Neutrophils # (Auto) 5.5 Thou/mm3 (1.8-7.7); Neutrophils % (Auto) 72 % (37-80); Nucleated Red Blood Cell # 0.00 Thou/mm3 (0.00-0.00); Nucleated Red Blood Cell % 0 /100 WBC (0); Platelet Count 219 Thou/mm3 (140-440); RDW Standard Deviation 44.3 fL (36.4-46.3); Red Blood Count 3.91 Miln/mm3 (4.00-5.20); White Blood Count 7.6 Thou/mm3 (3.6-11.0)
[2025-09-28 06:45] LABS: Alanine Aminotransferase < 7 U/L (10-49); Albumin, Serum 3.1 gm/dL (3.4-4.8); Albumin/Globulin Ratio 1.1 (1.2-2.2); Alkaline Phosphatase 94 U/L (46-116); Anion Gap 11 (7-16); Aspartate Amino Transferase 20 U/L (0-34); BUN/Creatinine Ratio 10 Ratio (12-20); Bilirubin,Total 0.2 mg/dL (0.3-1.2); Blood Urea Nitrogen < 5 mg/dL (9-23); Calcium 8.1 mg/dL (8.3-10.6); Calcium (Corrected) 8.8 mg/dL (8.5-10.1); Carbon Dioxide 29.0 mMol/L (20.0-31.0); Chloride 103 mMol/L (98-107); Creatinine (Component) 0.5 mg/dL (0.6-1.3); Estimated Creatinine Clearance 65.6 mL/min (>60); Globulin 2.7 gm/dL (2.3-3.5); Glucose 83 mg/dL (74-106); Magnesium 1.5 mg/dL (1.6-2.6); Osmolality,Calculated 281 (275-295); Phosphorous 1.7 mg/dL (2.4-5.1); Potassium 3.2 mMol/L (3.4-5.1); Sodium 143 mMol/L (136-145); Total Protein 5.8 gm/dL (5.7-8.2); eGFR > 60 See Note
[2025-09-28] MEDS: ASPIRIN EC 81 MG TABEC PO (08:38)
[2025-09-28] MEDS: levETIRAcetam INJ 100 MG/ML VIAL 5ML 1000 MG IVP ×2 (08:38→20:22)
[2025-09-28] MEDS: MONTELUKAST SODIUM 10 MG TABLET PO (08:38)
[2025-09-28] MEDS: cefTRIAXone/D5w 1gm IV premix 1 GM/50 ML BAG IV (08:38)
[2025-09-28] MEDS: AZITHROMYCIN INJ 500 MG in SODIUM CHLORIDE 0.9% 250 ML 250 ML 250 MG IV (08:39)
[2025-09-28] MEDS: ENOXAPARIN SOD INJ 40 MG/0.4 ML SYRINGE SC (08:40)
--- NOTE | 2025-09-28 10:47 | PC.SS ---
Addendum entered by Ericka Tavares 09/28/25 14:38: SS received [employer] letter and successfully uploaded all documents to [employer] portal, pending review. Addendum entered by Ericka Tavares 09/28/25 13:47: RUDDY contacted Manjidner to follow up with [facility] #, per Manjinder, they did not answer and a voicemail was left. RUDDY requested for Manjinder to call back as SS needs to process appeal. Manjinder instructed to call SS when he calls again Original Note: RUDDY was informed by RN, that pt is ready for DC, SS contacted Manjinder Camacho [phone] in regards to DC. IMM provided. Per Manjinder it is too soon to DC pt and they wish to appeal the DC with [employer]. Information provided via phone. Per Manjinder he will call and call SS back with ID #. Team A made aware.
--- NOTE | 2025-09-28 11:05 | ESDS_ITS ---
<Statement entered by Norma Fernández MD - 10/01/25 08:01> I reviewed above note and agree with findings and plans. I have also personally examined the patient with medicine team and went over assessment and plan with medical team including winter intern and resident physician. <Statement entered by Stan Chavira MD - 09/28/25 14:15> I discussed with and supervised the winter intern physician involved in the care of this patient. Patient assessment and plan was discussed with entire medicine team, including my attending. I agree with the assessment and plan as documented by winter intern doctor. Patient care was discussed with my attending physician Dr. Jolene Chavira, PGY-3 Planned Discharge Date 09/28/25 DS: Providers Provider Date of admission: 09/26/25 15:09 Primary care physician: Leo Rosas MD Admitting Provider: Norma Fernández MD Attending Provider on Admission: Norma Fernández MD Consults: 09/26/25 12:57 Referral Respiratory Therapy Stat Comment: please evaluate 09/26/25 16:12 Consult to Neurology / Tele-Neurology Routine Comment: Keppra dose adjustment Consulting Provider: Koby Mendoza 09/27/25 10:12 Referral Speech Therapy Routine Comment: Swallow eval please Attending Provider on DC: Norma Fernández MD Discharging Provider: Jimy Villatoro DO Anticipated date of discharge: 09/28/25 DS: Diagnosis Problem List Completed Was Problem List Reviewed/Reconciled?: Yes Hospital Course Hospital Course Hospital course: Ms. Barton is a 70 years old female with history of Down syndrome, seizure disorder on Keppra, recurrent pneumonia, asthma, and hypothyroidism presented to the ED on 09/26/25 for shortness of breathe. Patient is nonverbal, GCS 10 at baseline. History obtained from ED and RN at bedside. [facility] found patient to be saturating in mid 80s on nasal canula. She was placed on 6L via simple mask per EMS with O2 saturation of 96%. [facility] other [facility]. Upon chart review, she was seen in the ED on 09/04/25 for left base pneumonia and was treated. She was seen again on 09/21/25 for Influenza B. Of note, she was admitted to ICU in 2024 for shock likely secondary to community acquired pneumonia. During this admission, her BP continued to be labile but was responsive to fluid and did not require presser support. On day of discharge, she no longer required high flow, and was on simple mask 3L with O2 sat of 98%. At this point, she was deemed appropriate to be discharged home with antibiotics. Diagnosis: #Acute respiratory failure with hypoxia #Community acquired pneumonia #Influenza B positive (09/21/25) #Recurrent pneumonia #UTI #Leukocytosis #Lactic acidosis #Hx of Seizure disorder on Keppra #Hypothyroidism #Asthma #Down syndrome Discharge Plan: Follow up with primary care physician within 1 week of discharge Please follow up with neurology within 1-2 weeks of discharge. Your Keppra dosage may be adjustment. Please take Augmentin (amoxicillin-clavulanate) 1 tab twice daily for 8 days Please take Doxycycline 100mg 1 tab daily for 8 days. Continue to take the rest of your medications as prescribed by your primary care physician. Please return to the ED for any concerning or worsening symptoms Patient has been explained that should any symptoms recur or worsen patient is instructed to return to the Emergency Department. Case discussed with my senior resident Dr. Chavira Case discussed with my attending Dr. Jolene Villatoro, PGY 1 Status at Discharge Overall status at discharge: patient is back to baseline Time Spent with Patient Time attestation: Total time spent providing and/or coordinating discharge services: Time spent: Greater than 30 minutes Exam Vital Signs Temp Pulse Resp BP Pulse Ox O2 Del Method O2 Flow Rate 96.9 F 66 17 128/71 100 Oxy Mask 3 09/28/25 08:00 09/28/25 08:00 09/28/25 08:00 09/28/25 08:00 09/28/25 08:00 09/28/25 08:00 09/28/25 08:00 FiO2 45 09/27/25 16:00 Narrative Exam General: Sleeping. Nonverbal. Simple mask 3L. HEENT: Normocephalic, atraumatic. Neck: Supple, no JVD Cardiovascular: Regular rate and rhythm. No murmurs, rubs, or gallops. Respiratory: Clear to auscultation bilaterally. Normal respiratory effort. No wheeze, crackles appreciated. Abdomen: Soft, nontender, nondistended. Skin: Warm, dry, intact. No rashes or lesions. Discharge Plan Plan Patient Disposition: HOME (Self Care) Care Plan Goals: Follow up with primary care physician within 1 week of discharge Please follow up with neurology within 1-2 weeks of discharge. Your Keppra dosage may be adjustment. Please take Augmentin (amoxicillin-clavulanate) 1 tab twice daily for 8 days Please take Doxycycline 100mg 1 tab daily for 8 days. Continue to take the rest of your medications as prescribed by your primary care physician. Please return to the ED for any concerning or worsening symptoms Prescriptions/Referrals Prescriptions/Med Rec: New amoxicillin-pot clavulanate 875-125 mg tablet 1 tab PO BID Qty: 16 0RF doxycycline hyclate 100 mg capsule 100 mg PO QDAY Qty: 8 0RF Continued methenamine hippurate [Hiprex] 1 gram tablet 1 g PO QDAY quetiapine 100 mg tablet 100 mg PO HS levothyroxine 75 mcg tablet 75 mcg PO DAILY docusate sodium 100 mg capsule 100 mg PO BID aspirin 81 mg tablet,chewable 81 mg PO DAILY montelukast 10 mg tablet 10 mg PO DAILY calcium carbonate-vitamin D3 600 mg-10 mcg (400 unit) tablet 1 tab PO BID (DME) Bipap Misc See Rx Instructions .Route Qty: 1 0RF Rx Instructions: As directed cranberry extract [Cranberry Concentrate] 500 mg Capsule 500 mg PO QDAY Rx Instructions: administer with meals Xcopri 50 mg tablet 50 mg PO QDAY Rx Instructions: administer weeks 5 and 6 of therapy levetiracetam 500 mg tablet 1,000 mg PO QDAY Qty: 10 0RF Patient Comments: take 2 tabs by mouth in the morning and 3 tabs by mouth at bedtime levetiracetam 750 mg tablet 1,500 mg PO QPM Qty: 14 0RF Patient Comments: 1500 MG (2 X 750 MG) ORALLY TWICE A DAY FOR 1 MONTH TAKE TWO TABLETS BY MOUTH TWICE A DAY simvastatin [Zocor] 20 mg tablet 20 mg PO QPM Held loratadine 10 mg tablet 10 mg PO DAILY Hold Instructions: Resume on 10/12/25. Until you see your doctor Discontinued polyethylene glycol 3350 17 gram/dose powder 17 g PO QDAY doxycycline hyclate 100 mg capsule 100 mg PO BID Qty: 14 0RF guaifenesin 200 mg/5 mL liquid 400 mg PO Q6H PRN (Reason: congestion) Qty: 118 0RF Referrals: Leo Rosas MD [Primary Care Provider, Family Practice] Patient/Caregiver Discharge Instructions Print Language: Sami Stand Alone Forms: Laurie Award Info., Patient Portal Info Letter Discharge Order Discharge Orders: Discharge (Routine); Ordered 09/28/25 Ordered By: Stan Chavira Quality Discharge Quality Measures none
--- NOTE | 2025-09-28 18:57 | VVPN_ITS ---
Telemedicine visit statement This visit was conducted with the use of interactive audio and video telecommunications system that permits real time communication between the patient and the provider. Patient's verbal consent for virtual visit was obtained on 09/28/25 at 1857. Documentation for date of: 09/28/25 Subjective Subjective Interval history: Patient is in telemetry today, no seizures reported on Kera. Virtual exam Vital Signs Temp Pulse Resp BP Pulse Ox O2 Del Method O2 Flow Rate 97.6 F 60 18 110/60 96 Nasal Cannula 10 09/28/25 12:00 09/28/25 16:00 09/28/25 15:30 09/28/25 12:00 09/28/25 15:30 09/28/25 12:00 09/28/25 15:30 FiO2 45 09/27/25 16:00 Objective Labs 09/28/25 05:30 09/28/25 05:30 Labs: Laboratory Results - last 24 hr 09/28/25 05:30 WBC 7.6 D RBC 3.91 L Hgb 12.4 Hct 37.2 MCV 95 MCH 31.7 MCHC 33.3 RDW Std Deviation 44.3 Plt Count 219 Neut % (Auto) 72 Lymph % (Auto) 18 [place] % (Auto) 8 Eos % (Auto) 0 Baso % (Auto) 1 Neut # (Auto) 5.5 Lymph # (Auto) 1.4 [place] # (Auto) 0.6 Eos # (Auto) 0.0 Baso # (Auto) 0.1 Immature Gran # (Auto) 0.04 H Absolute Nucleated RBC 0.00 Immature Gran % 1 H Nucleated RBC % 0 Sodium 143 Potassium 3.2 L D Chloride 103 Carbon Dioxide 29.0 Anion Gap 11 BUN < 5 L Creatinine 0.5 L Estim Creat Clear Calc 65.6 eGFR > 60 BUN/Creatinine Ratio 10 L Glucose 83 Calculated Osmolality 281 Calcium 8.1 L Corrected Calcium 8.8 Phosphorus 1.7 L Magnesium 1.5 L Total Bilirubin 0.2 L AST 20 ALT < 7 L Alkaline Phosphatase 94 Total Protein 5.8 Albumin 3.1 L Globulin 2.7 Albumin/Globulin Ratio 1.1 L ABG Interpretation ABG results: 09/26/25 09/26/25 11:40 15:23 ABG pH 7.35 ABG pCO2 44 ABG pO2 244 H ABG HCO3 25 ABG O2 Saturation 101 H ABG Base Excess -1 VBG pH 7.34 VBG pCO2 52 VBG pO2 28 VBG Base Excess 1 Assessment & Plan Problem List (1) Seizure: Status: Acute Assessment and plan: Continue with Keppra Follow seizure precautions and continue to monitor for any breakthrough seizures (2) Pneumonia: Status: Acute Assessment and plan: treated with IV antibiotics Continue to monitor for respiratory distress from hypoxia
[2025-09-28] MEDS: ALBUTEROL/IPRATROPIUM (Duoneb) RT SOL 3 ML NEBU INH (19:26)
[2025-09-28] MEDS: ACETYLCYSTEINE RT SOL 10% 4 ML NEBU 3 ML INH (19:26)
[2025-09-29] VITALS (15 sets, daily range): BP systolic 92–124; BP diastolic 46–70; PULSE 49–93; RESP 13–20; TEMP 36.1–36.4; O2SAT 93–100; BMI 20.1
[2025-09-29] MEDS: ACETYLCYSTEINE RT SOL 10% 4 ML NEBU 3 ML INH ×4 (00:52→18:00)
[2025-09-29] MEDS: ALBUTEROL/IPRATROPIUM (Duoneb) RT SOL 3 ML NEBU INH ×4 (00:52→18:00)
[2025-09-29 06:02] LABS: Basophils # (Auto) 0.1 Thou/mm3 (0.0-0.2); Basophils % (Auto) 1 % (0-2.5); Eosinophils # (Auto) 0.1 Thou/mm3 (0.0-0.5); Eosinophils % (Auto) 1 % (0-10); Hematocrit 34.4 % (36.0-46.0); Hemoglobin 11.6 g/dL (12.0-16.0); Immature Granulocytes Auto 0.05 Thou/mm3 (0.00-0.00); Lymphocytes # (Auto) 1.6 Thou/mm3 (1.0-4.8); Lymphocytes % (Auto) 23 % (10-50); Mean Corpuscular HGB Conc 33.7 g/dl (31.0-37.0); Mean Corpuscular Hemoglobin 31.7 pg (25.0-35.0); Mean Corpuscular Volume 94 fL (80-100); Monocytes # (Auto) 0.6 Thou/mm3 (0.0-0.8); Monocytes % (Auto) 9 % (0-12); Neutrophils # (Auto) 4.4 Thou/mm3 (1.8-7.7); Neutrophils % (Auto) 66 % (37-80); Nucleated Red Blood Cell # 0.00 Thou/mm3 (0.00-0.00); Nucleated Red Blood Cell % 0 /100 WBC (0); Platelet Count 234 Thou/mm3 (140-440); RDW Standard Deviation 44.2 fL (36.4-46.3); Red Blood Count 3.66 Miln/mm3 (4.00-5.20); White Blood Count 6.7 Thou/mm3 (3.6-11.0)
[2025-09-29 06:34] LABS: Alanine Aminotransferase < 7 U/L (10-49); Albumin, Serum 2.7 gm/dL (3.4-4.8); Albumin/Globulin Ratio 1.2 (1.2-2.2); Alkaline Phosphatase 86 U/L (46-116); Anion Gap 8 (7-16); Aspartate Amino Transferase 16 U/L (0-34); BUN/Creatinine Ratio 16 Ratio (12-20); Bilirubin,Total 0.2 mg/dL (0.3-1.2); Blood Urea Nitrogen 8 mg/dL (9-23); Calcium 8.1 mg/dL (8.3-10.6); Calcium (Corrected) 9.1 mg/dL (8.5-10.1); Carbon Dioxide 30.5 mMol/L (20.0-31.0); Chloride 106 mMol/L (98-107); Creatinine (Component) 0.5 mg/dL (0.6-1.3); Estimated Creatinine Clearance 64.4 mL/min (>60); Globulin 2.3 gm/dL (2.3-3.5); Glucose 107 mg/dL (74-106); Magnesium 1.6 mg/dL (1.6-2.6); Osmolality,Calculated 285 (275-295); Phosphorous 2.0 mg/dL (2.4-5.1); Potassium 3.8 mMol/L (3.4-5.1); Sodium 144 mMol/L (136-145); Total Protein 5.0 gm/dL (5.7-8.2); eGFR > 60 See Note
[2025-09-29] MEDS: MONTELUKAST SODIUM 10 MG TABLET PO (08:12)
[2025-09-29] MEDS: ASPIRIN EC 81 MG TABEC PO (08:12)
[2025-09-29] MEDS: cefTRIAXone/D5w 1gm IV premix 1 GM/50 ML BAG IV (08:15)
[2025-09-29] MEDS: levETIRAcetam INJ 100 MG/ML VIAL 5ML 1000 MG IVP ×2 (08:20→20:02)
[2025-09-29] MEDS: ENOXAPARIN SOD INJ 40 MG/0.4 ML SYRINGE SC (08:23)
--- NOTE | 2025-09-29 09:22 | PC.SS ---
Addendum entered by Ericka Tavares 09/29/25 15:56: SS updated Manjinder who stated he will be here tomorrow at 11am to pick and shovel worker the pt Addendum entered by Ericka Tavares 09/29/25 15:54: Appeal resulted in favor of hospital, financial liability starts 09/30 1200pm Original Note: RUDDY checked appeal status for [id number], Physician review is completed, pending liability determination.
[2025-09-29] MEDS: AZITHROMYCIN INJ 500 MG in SODIUM CHLORIDE 0.9% 250 ML 250 ML 250 MG IV (09:26)
[2025-09-29] MEDS: Magnesium Sulfate 4 GM Ivpb 4 GM/50 ML BAG IV (10:34)
[2025-09-29] MEDS: POT PHOS 15 mMol in NS 250 ML 15 MMOL/250 ML BAG 62.5 MMOL IV (10:34)
[2025-09-29] MEDS: MIDODRINE 5 MG TABLET 10 MG PO ×2 (11:11→21:16)
--- NOTE | 2025-09-29 13:57 | ESPR_ITS ---
<Statement entered by Norma Fernández MD - 10/01/25 08:04> I reviewed above note and agree with findings and plans. I have also personally examined the patient with medicine team and went over assessment and plan with medical team including application development intern and resident physician. <Statement entered by Manish Fine MD - 09/29/25 14:37> Patient was examined and case was reviewed with team including attending physician. Note reviewed, I agree with most of its contents and agree with the patient's care as documented by Dr. Balwinder Fine MD PGY-2 Documentation for date of: 09/29/25 Subjective Subjective Interval history: - No acute events overnight. - Patient seen and examined at bedside this morning. - Yesterday, the patient experienced oxygen desaturations to the 80s. Secretions were suctioned, and the patient was placed on a 12 L Oxymask with improvement in oxygen saturation to 99% after Dubneb, Mucomyst, and chest physiotherapy. Continue DuoNebs every 6 hours along with Mucomyst and chest physiotherapy. This morning, the patient was saturating well on 6 L Oxymask and was able to tolerate weaning down to 2 L. - Pending appeal status for discharge. Exam Vital Signs Temp Pulse Resp BP Pulse Ox O2 Del Method O2 Flow Rate 97.1 F 59 L 17 93/55 L 99 Oxy Mask 2 09/29/25 12:00 09/29/25 12:58 09/29/25 12:58 09/29/25 12:00 09/29/25 12:58 09/29/25 12:00 09/29/25 12:58 FiO2 45 09/29/25 04:00 Narrative Exam Physical Exam General: Sleeping. Nonverbal. Oxymask 2L. HEENT: Normocephalic, atraumatic. Heart: Regular rate and rhythm, no murmurs, rubs or gallops. Lungs: Clear to auscultation with no wheezing or crackles bilaterally. Non- labored respirations, symmetric chest rise, no use of accessory muscles. Abdomen: Soft, nondistended, nontender. No guarding or rebound tenderness. Neurologic: No gross neurological deficit, and patient able to move all 4 extremities. Extremities: No edema, clubbing or cyanosis. Skin: Warm and dry without rashes. Psychiatric: Cooperative, appropriate mood and affect. Objective Labs 09/29/25 05:08 09/29/25 05:08 Labs: Laboratory Results - last 24 hr 09/29/25 05:08 WBC 6.7 RBC 3.66 L Hgb 11.6 L Hct 34.4 L MCV 94 MCH 31.7 MCHC 33.7 RDW Std Deviation 44.2 Plt Count 234 Neut % (Auto) 66 Lymph % (Auto) 23 [place] % (Auto) 9 Eos % (Auto) 1 Baso % (Auto) 1 Neut # (Auto) 4.4 Lymph # (Auto) 1.6 [place] # (Auto) 0.6 Eos # (Auto) 0.1 Baso # (Auto) 0.1 Immature Gran # (Auto) 0.05 H Absolute Nucleated RBC 0.00 Immature Gran % 1 H Nucleated RBC % 0 Sodium 144 Potassium 3.8 D Chloride 106 Carbon Dioxide 30.5 Anion Gap 8 BUN 8 L Creatinine 0.5 L Estim Creat Clear Calc 64.4 eGFR > 60 BUN/Creatinine Ratio 16 Glucose 107 H Calculated Osmolality 285 Calcium 8.1 L Corrected Calcium 9.1 Phosphorus 2.0 L Magnesium 1.6 Total Bilirubin 0.2 L AST 16 ALT < 7 L Alkaline Phosphatase 86 Total Protein 5.0 L Albumin 2.7 L Globulin 2.3 Albumin/Globulin Ratio 1.2 ABG Interpretation ABG results: 09/26/25 09/26/25 11:40 15:23 ABG pH 7.35 ABG pCO2 44 ABG pO2 244 H ABG HCO3 25 ABG O2 Saturation 101 H ABG Base Excess -1 VBG pH 7.34 VBG pCO2 52 VBG pO2 28 VBG Base Excess 1 Quality Measures Quality Measures none Advance care planning discussed with:: patient Assessment & Plan Assessment Current Active Medications: Generic Name Dose Route Start Last Admin Trade Name Freq PRN Reason Stop Dose Admin Acetaminophen 650 mg 09/26/25 15:11 Acetaminophen 325 Mg Tablet PO 10/26/25 15:10 Q6H PRN PAIN SCALE 1-3 (mild Acetylcysteine 3 ml 09/28/25 19:00 09/29/25 12:58 Acetylcysteine Rt [place] 10% 4 Ml Nebu INH 10/28/25 18:59 3 ml Q6HRRT JERRY Administration Albuterol/Ipratropium 3 ml 09/29/25 19:00 Albuterol/Ipratropium (Duoneb) Rt Shannon 3 Ml Nebu INH 10/29/25 18:59 Q6HRRT JERRY Aspirin 81 mg 09/27/25 09:00 09/29/25 08:12 Aspirin Ec 81 Mg Tabec PO 10/27/25 08:59 81 mg DAILY JERRY Administration Enoxaparin Sodium 40 mg 09/27/25 09:00 09/29/25 08:23 Enoxaparin Sod Inj 40 Mg/0.4 Ml Syringe SC 10/11/25 08:59 40 mg QDAY JERRY Administration Ceftriaxone Sodium/Dextrose 1 gm in 50 mls @ 100 mls/hr 09/27/25 09:00 09/29/25 08:15 Rocephin/D5w 1gm Iv Premix IV 10/04/25 08:59 100 mls/hr QDAY JERRY Administration Azithromycin 500 mg/ Sodium 250 mls @ 250 mls/hr 09/27/25 09:00 09/29/25 09:26 Chloride IV 10/04/25 08:59 250 mls/hr QDAY JERRY Administration Levetiracetam 1,000 mg 09/26/25 21:00 09/29/25 08:20 Levetiracetam Inj 100 Mg/Ml Vial 5ml IVP 10/26/25 20:59 1,000 mg Q12HR JERRY Administration Midodrine 10 mg 09/29/25 22:00 Midodrine 5 Mg Tablet PO 10/29/25 21:59 TID JERRY Montelukast Sodium 10 mg 09/27/25 09:00 09/29/25 08:12 Montelukast Sodium 10 Mg Tablet PO 10/27/25 08:59 10 mg DAILY JERRY Administration Sodium Chloride 3 ml 09/26/25 10:33 09/26/25 10:58 Sodium Chloride Rt [place] 0.9% 3 Ml Nebu INH 10/26/25 10:32 3 ml PRN PRN Administration SOLN Plan 70 years old female with history of Down syndrome, seizure disorder on Keppra, recurrent pneumonia, asthma, and hypothyroidism presents to the ED on 09/26/25 for shortness of breathe. She was tested positive for Influenza B on 09/21/25. COVID test neg on admission. She was admitted for community acquired pneumonia. #Acute respiratory failure with hypoxia #Community acquired pneumonia #Influenza B positive (09/21/25) #Recurrent pneumonia #UTI #Leukocytosis #Lactic acidosis Reported to have O2 sat in mid 80s at intermediate. CXR revealed mild pneumonia. Recent Influenza B infection. UA on admission leuk est +, 1+ juventino - Azithromycin 500mg x 1 and Rocephin 2g x1 in ED (09/26/25) - NaCl 0.9% 1.5L in ED (09/26/25) - 500mL bolus x1 (09/26/25) - Maintenance fluid D5NS @ 125ml/hr - Continue Rocephin 1g QD and Azithromycin 500mg QD (09/27 ~ - Oxygen as needed - Bcx negative. - Rpt lactate 3.5 -> 1.9 #Hx of Seizure disorder on Keppra #Hypothyroidism #Asthma #Down syndrome Chronic medical problems. GCS 10 at baseline. Nonverbal. - seizure precaution - Speech swallow eval: rec dysphagia pureed. - Keppra 1000mg PO BID --> given that patient is obtunded, non-alert/oriented, will start her on 1000mg BID for now, increase back to home dose if needed (Home dose 1000mg in AM, 1500mg in PM) --> neurology consult for dose adjustment. - Levothyroxine 75mcg PO BID - Monteleukast 10mg PO QD - TSH 0.30. Free T3 2.1 (low) Health maintenance Dispo: CAP tx, oxygen demand DVT prophylaxis: Lovenox GI prophylaxis: N/A Antibiotics: Rocephin and azithromycin Bowel Regimen: N/A Diet: dysphagia pureed Lines: Peripheral IV Code status: Full code --- Patient plan of care was discussed with the senior resident, Dr. Joey Fine, and attending physician, . . Tita Britt, DO PGY-1
--- NOTE | 2025-09-29 19:12 | PD.VPROG1 ---
Telemedicine visit statement This visit was conducted with the use of interactive audio and video telecommunications system that permits real time communication between the patient and the provider. Patient's verbal consent for virtual visit was obtained on 09/29/25 at 1912. Documentation for date of: 09/29/25 Subjective Subjective Interval history: Patient is in med srug today, no seizures reported on Keppra. Saturating well with no oxygen on board. Virtual exam Vital Signs Temp Pulse Resp BP Pulse Ox O2 Del Method O2 Flow Rate 97.4 F 61 13 124/70 100 Room Air 8 09/29/25 16:00 09/29/25 18:00 09/29/25 18:00 09/29/25 16:00 09/29/25 18:00 09/29/25 16:00 09/29/25 18:00 FiO2 45 09/29/25 04:00 Objective Labs 09/29/25 05:08 09/29/25 05:08 Labs: Laboratory Results - last 24 hr 09/29/25 05:08 WBC 6.7 RBC 3.66 L Hgb 11.6 L Hct 34.4 L MCV 94 MCH 31.7 MCHC 33.7 RDW Std Deviation 44.2 Plt Count 234 Neut % (Auto) 66 Lymph % (Auto) 23 [place] % (Auto) 9 Eos % (Auto) 1 Baso % (Auto) 1 Neut # (Auto) 4.4 Lymph # (Auto) 1.6 [place] # (Auto) 0.6 Eos # (Auto) 0.1 Baso # (Auto) 0.1 Immature Gran # (Auto) 0.05 H Absolute Nucleated RBC 0.00 Immature Gran % 1 H Nucleated RBC % 0 Sodium 144 Potassium 3.8 D Chloride 106 Carbon Dioxide 30.5 Anion Gap 8 BUN 8 L Creatinine 0.5 L Estim Creat Clear Calc 64.4 eGFR > 60 BUN/Creatinine Ratio 16 Glucose 107 H Calculated Osmolality 285 Calcium 8.1 L Corrected Calcium 9.1 Phosphorus 2.0 L Magnesium 1.6 Total Bilirubin 0.2 L AST 16 ALT < 7 L Alkaline Phosphatase 86 Total Protein 5.0 L Albumin 2.7 L Globulin 2.3 Albumin/Globulin Ratio 1.2 ABG Interpretation ABG results: 09/26/25 09/26/25 11:40 15:23 ABG pH 7.35 ABG pCO2 44 ABG pO2 244 H ABG HCO3 25 ABG O2 Saturation 101 H ABG Base Excess -1 VBG pH 7.34 VBG pCO2 52 VBG pO2 28 VBG Base Excess 1 Assessment & Plan Problem List (1) Seizure: Status: Acute Assessment and plan: Continue with Keppra Follow seizure precautions and continue to monitor for any breakthrough seizures. Neurologically stable. (2) Pneumonia: Status: Acute Assessment and plan: treated with IV antibiotics Continue to monitor for respiratory distress from hypoxia
[2025-09-30] VITALS: BP 109/57; PULSE 53; PULSE 55; RESP 19; TEMP 36.8; O2SAT 100
[2025-09-30 00:19] VITALS: PULSE 55; RESP 17; RESP 19; O2SAT 99
[2025-09-30] MEDS: ACETYLCYSTEINE RT SOL 10% 4 ML NEBU 3 ML INH ×2 (00:19→06:41)
[2025-09-30] MEDS: ALBUTEROL/IPRATROPIUM (Duoneb) RT SOL 3 ML NEBU INH ×2 (00:20→06:41)
[2025-09-30 04:00] VITALS: BP 102/50; PULSE 60; RESP 15; TEMP 36.8; O2SAT 93
[2025-09-30 05:22] VITALS: BP 102/50; PULSE 60
[2025-09-30] MEDS: MIDODRINE 5 MG TABLET 10 MG PO (05:22)
[2025-09-30 06:00] VITALS: BMI 20.1
--- NOTE | 2025-09-30 06:00 | PC.NURSE ---
Chief Meter Reader called that pt sating on 86%,pt is on RA at this time, went to pts room, pt was put on 1L per oxymask pt O2 sats went up to 89% and didnt go up, titrated up to 2LPM and O2 sats went up to 92%, RT made aware of the oxygen administration.
[2025-09-30 06:41] VITALS: PULSE 51; PULSE 58; RESP 13; RESP 16; O2SAT 98; O2SAT 99
--- NOTE | 2025-09-30 07:23 | ESDS_ITS ---
<Statement entered by Norma Fernández MD - 10/01/25 14:33> I reviewed above note and agree with findings and plans. I have also personally examined the patient with medicine team and went over assessment and plan with medical team including internet sales manager and resident physician. <Statement entered by Manish Fine MD - 09/30/25 11:47> Patient was examined and case was reviewed with team including attending physician. Note reviewed, I agree with most of its contents and agree with the patient's care. Manish Fine MD PGY-2 Planned Discharge Date 09/30/25 DS: Providers Provider Date of admission: 09/26/25 15:09 Primary care physician: Leo Rosas MD Admitting Provider: Norma Fernández MD Attending Provider on Admission: Norma Fernández MD Consults: 09/26/25 12:57 Referral Respiratory Therapy Stat Comment: please evaluate 09/26/25 16:12 Consult to Neurology / Tele-Neurology Routine Comment: Keppra dose adjustment Consulting Provider: Koby Mendoza 09/27/25 10:12 Referral Speech Therapy Routine Comment: Swallow eval please Attending Provider on DC: Norma Fernández MD Discharging Provider: Jimy Villatoro DO Anticipated date of discharge: 09/30/25 DS: Diagnosis Problem List Completed Was Problem List Reviewed/Reconciled?: Yes Hospital Course Hospital Course Hospital course: *Appealed discharge on 09/28/25. Patient received Dubneb, Mucomyst, and chest physiotherapy on 09/29/25 after a brief episode of desaturation. Patient is medically stable for discharge today on 09/30/25. Ms. Barton is a 70 years old female with history of Down syndrome, seizure disorder on Keppra, recurrent pneumonia, asthma, and hypothyroidism presented to the ED on 09/26/25 for shortness of breathe. Patient is nonverbal, GCS 10 at baseline. History obtained from ED and RN at bedside. Patient was BIBA from halfway after provider at the facility found patient to be saturating in mid 80s on nasal canula. She was placed on 6L via simple mask per EMS with O2 saturation of 96%. There was no other reported acute symptoms by halfway staff. Upon chart review, she was seen in the ED on 09/04/25 for left base pneumonia and was treated. She was seen again on 09/21/25 for Influenza B. Of note, she was admitted to ICU in 2024 for shock likely secondary to comm unity acquired pneumonia. During this admission, her BP continued to be labile but was responsive to fluid and did not require presser support. On day of discharge, she no longer required high flow, and was on simple mask 3L with O2 sat of 98%. At this point, she was deemed appropriate to be discharged home with antibiotics. Diagnosis: #Acute respiratory failure with hypoxia #Community acquired pneumonia #Influenza B positive (09/21/25) #Recurrent pneumonia #UTI #Leukocytosis #Lactic acidosis #Hx of Seizure disorder on Keppra #Hypothyroidism #Asthma #Down syndrome Discharge Plan: Follow up with primary care physician within 1 week of discharge Please take Augmentin (amoxicillin-clavulanate) 1 tab twice daily for 8 days Please take Doxycycline 100mg 1 tab daily for 8 days. Please take midodrine 10mg three times daily. Continue to take the rest of your medications as prescribed by your primary care physician. Please return to the ED for any concerning or worsening symptoms Patient has been explained that should any symptoms recur or worsen patient is instructed to return to the Emergency Department. Case discussed with my senior resident Dr. Cook Case discussed with my attending Dr. Jolene Villatoro, PGY 1 Status at Discharge Overall status at discharge: patient is back to baseline Time Spent with Patient Time attestation: Total time spent providing and/or coordinating discharge services: Time spent: Greater than 30 minutes Exam Vital Signs Temp Pulse Resp BP Pulse Ox O2 Del Method O2 Flow Rate 98.3 F 58 L 13 102/50 L 99 Room Air 2 09/30/25 04:00 09/30/25 06:41 09/30/25 06:41 09/30/25 05:22 09/30/25 06:41 09/30/25 04:00 09/30/25 06:41 FiO2 45 09/29/25 04:00 Narrative Exam General: Sleeping. Nonverbal. 92% on RA. HEENT: Normocephalic, atraumatic. Neck: Supple, no JVD Cardiovascular: Regular rate and rhythm. No murmurs, rubs, or gallops. Respiratory: Clear to auscultation bilaterally. Normal respiratory effort. No wheeze, crackles appreciated. Abdomen: Soft, nontender, nondistended. Skin: Warm, dry, intact. No rashes or lesions. Discharge Plan Plan Patient Disposition: HOME (Self Care) Care Plan Goals: Follow up with primary care physician within 1 week of discharge Please take Augmentin (amoxicillin-clavulanate) 1 tab twice daily for 8 days Please take Doxycycline 100mg 1 tab daily for 8 days. Please take midodrine 10mg three times daily. Continue to take the rest of your medications as prescribed by your primary care physician. Please return to the ED for any concerning or worsening symptoms Prescriptions/Referrals Prescriptions/Med Rec: New amoxicillin-pot clavulanate 875-125 mg tablet 1 tab PO BID Qty: 16 0RF doxycycline hyclate 100 mg capsule 100 mg PO QDAY Qty: 8 0RF midodrine 10 mg tablet 10 mg PO TID 30 Days Qty: 90 0RF Rx Instructions: do not give last dose of day after 6PM or within 4 hrs of bedtime Continued methenamine hippurate [Hiprex] 1 gram tablet 1 g PO QDAY quetiapine 100 mg tablet 100 mg PO HS levothyroxine 75 mcg tablet 75 mcg PO DAILY docusate sodium 100 mg capsule 100 mg PO BID aspirin 81 mg tablet,chewable 81 mg PO DAILY montelukast 10 mg tablet 10 mg PO DAILY calcium carbonate-vitamin D3 600 mg-10 mcg (400 unit) tablet 1 tab PO BID (DME) Bipap Misc See Rx Instructions .Route Qty: 1 0RF Rx Instructions: As directed cranberry extract [Cranberry Concentrate] 500 mg Capsule 500 mg PO QDAY Rx Instructions: administer with meals Xcopri 50 mg tablet 50 mg PO QDAY Rx Instructions: administer weeks 5 and 6 of therapy levetiracetam 500 mg tablet 1,000 mg PO QDAY Qty: 10 0RF Patient Comments: take 2 tabs by mouth in the morning and 3 tabs by mouth at bedtime levetiracetam 750 mg tablet 1,500 mg PO QPM Qty: 14 0RF Patient Comments: 1500 MG (2 X 750 MG) ORALLY TWICE A DAY FOR 1 MONTH TAKE TWO TABLETS BY MOUTH TWICE A DAY simvastatin [Zocor] 20 mg tablet 20 mg PO QPM Held loratadine 10 mg tablet 10 mg PO DAILY Hold Instructions: Resume on 10/12/25. Until you see your doctor Discontinued polyethylene glycol 3350 17 gram/dose powder 17 g PO QDAY doxycycline hyclate 100 mg capsule 100 mg PO BID Qty: 14 0RF guaifenesin 200 mg/5 mL liquid 400 mg PO Q6H PRN (Reason: congestion) Qty: 118 0RF Referrals: Leo Rosas MD [Primary Care Provider, Family Practice] Patient/Caregiver Discharge Instructions Education Materials: Treating Pneumonia, Preventing Common Respiratory ... Print Language: Danish Stand Alone Forms: Laurie Award Info., Patient Portal Info Letter Discharge Order Discharge Orders: Discharge (Routine); Ordered 09/30/25 Ordered By: Jimy Villatoro Quality Discharge Quality Measures none
[2025-09-30 07:58] LABS: Basophils # (Auto) 0.1 Thou/mm3 (0.0-0.2); Basophils % (Auto) 1 % (0-2.5); Eosinophils # (Auto) 0.2 Thou/mm3 (0.0-0.5); Eosinophils % (Auto) 2 % (0-10); Hematocrit 37.9 % (36.0-46.0); Hemoglobin 12.6 g/dL (12.0-16.0); Immature Granulocytes Auto 0.05 Thou/mm3 (0.00-0.00); Lymphocytes # (Auto) 1.7 Thou/mm3 (1.0-4.8); Lymphocytes % (Auto) 26 % (10-50); Mean Corpuscular HGB Conc 33.2 g/dl (31.0-37.0); Mean Corpuscular Hemoglobin 31.5 pg (25.0-35.0); Mean Corpuscular Volume 95 fL (80-100); Monocytes # (Auto) 0.7 Thou/mm3 (0.0-0.8); Monocytes % (Auto) 10 % (0-12); Neutrophils # (Auto) 3.9 Thou/mm3 (1.8-7.7); Neutrophils % (Auto) 59 % (37-80); Nucleated Red Blood Cell # 0.00 Thou/mm3 (0.00-0.00); Nucleated Red Blood Cell % 0 /100 WBC (0); Platelet Count 287 Thou/mm3 (140-440); RDW Standard Deviation 46.0 fL (36.4-46.3); Red Blood Count 4.00 Miln/mm3 (4.00-5.20); White Blood Count 6.6 Thou/mm3 (3.6-11.0)
[2025-09-30 08:00] VITALS: BP 130/82; PULSE 63; PULSE 69; RESP 16; TEMP 36.3; O2SAT 91
[2025-09-30] MEDS: cefTRIAXone/D5w 1gm IV premix 1 GM/50 ML BAG IV (08:00)
[2025-09-30] MEDS: levETIRAcetam INJ 100 MG/ML VIAL 5ML 1000 MG IVP (08:01)
[2025-09-30] MEDS: MONTELUKAST SODIUM 10 MG TABLET PO (08:02)
[2025-09-30] MEDS: ENOXAPARIN SOD INJ 40 MG/0.4 ML SYRINGE SC (08:02)
[2025-09-30] MEDS: ASPIRIN EC 81 MG TABEC PO (08:02)
[2025-09-30] MEDS: NAPH,KPH MBDB 1 PACKET (1.5 GM) PO (08:02)
[2025-09-30 08:17] LABS: Alanine Aminotransferase 8 U/L (10-49); Albumin, Serum 3.0 gm/dL (3.4-4.8); Albumin/Globulin Ratio 1.1 (1.2-2.2); Alkaline Phosphatase 90 U/L (46-116); Anion Gap 9 (7-16); Aspartate Amino Transferase 22 U/L (0-34); BUN/Creatinine Ratio 10 Ratio (12-20); Bilirubin,Total 0.2 mg/dL (0.3-1.2); Blood Urea Nitrogen 6 mg/dL (9-23); Calcium 7.8 mg/dL (8.3-10.6); Calcium (Corrected) 8.6 mg/dL (8.5-10.1); Carbon Dioxide 29.7 mMol/L (20.0-31.0); Chloride 106 mMol/L (98-107); Creatinine (Component) 0.6 mg/dL (0.6-1.3); Estimated Creatinine Clearance 53.7 mL/min (>60); Globulin 2.7 gm/dL (2.3-3.5); Glucose 102 mg/dL (74-106); Magnesium 2.3 mg/dL (1.6-2.6); Osmolality,Calculated 286 (275-295); Phosphorous 3.4 mg/dL (2.4-5.1); Potassium 3.7 mMol/L (3.4-5.1); Sodium 145 mMol/L (136-145); Total Protein 5.7 gm/dL (5.7-8.2); eGFR > 60 See Note
[2025-09-30] MEDS: AZITHROMYCIN INJ 500 MG in SODIUM CHLORIDE 0.9% 250 ML 250 ML 250 MG IV (09:18)
== END 2025-09-30 12:10 | disposition home or self-care (01) | DRG 193 ==
LOC: SERX 14:45 → SERHOLD 15:19 → S2NX 20:52 → S3SX 09-28 22:17
PROVIDERS: Admitting Provider Internal Medicine; Emergency Provider Family Medicine; PCP Family Medicine; Visit Provider Internal Medicine
DX: J10.00 Influenza due to other identified influenza virus with unspecified type of pneumonia (principal); J96.21 Acute and chronic respiratory failure with hypoxia; N39.0 Urinary tract infection, site not specified; E87.20 Acidosis, unspecified; J18.9 Pneumonia, unspecified organism; J45.909 Unspecified asthma, uncomplicated; E03.9 Hypothyroidism, unspecified; I10 Essential (primary) hypertension; G40.909 Epilepsy, unspecified, not intractable, without status epilepticus; Z87.01 Personal history of pneumonia (recurrent); Q90.9 Down syndrome, unspecified; Z99.81 Dependence on supplemental oxygen; Z79.890 Hormone replacement therapy
CPT/HCPCS: 36415; 36600; 51701; 71045; 80053; 80061; 81001; 82803; 83605; 83735; 83880; 84100; 84439; 84443; 84481; 84484; 85025; 85610; 87040; 87081; 87086; 87635; 92610; 93225; 94640; 94664; 94667; 96361; 96365; 96375; 99285; A9270; J0456; J0696; J1650; J1953; J2919; J3475; J7030; J7042; J7050; J7999; J7611